=== PATIENT | male | born 1960 | race Caucasian/White ===

== ENCOUNTER 2019-09-22 10:08 | Inpatient (IN) ==
[2019-09-22] MEDS ORDERED: ONDANSETRON INJ 2 MG/ML 2 ML VIAL IV STA (10:49)
[2019-09-22] MEDS ORDERED: DiphenhydrAMINE HCL 50 MG/ML VIAL IV STA (10:49)
[2019-09-22] MEDS ORDERED: PANTOprazole 80 MG in DEXTROSE 5% 100 ML IV ONE (10:49)
--- NOTE | 2019-09-22 10:55 | Emergency Department Note ---
Impression & Plan Lower abdominal pain, SBO (small bowel obstruction), Inguinal hernia, Vomiting, Heme positive stool ED Provider Note NAME: SAMIR Parsons [id number] PICK AGE: 58 SEX: M : 1960 ARRIVES VIA: Walk-In INFORMANT: [Patient][nursing home staff] ED PROVIDER(S): [Kushal Steven MD] CHIEF COMPLAINT: Vomiting HISTORY OF PRESENT ILLNESS: The patient is a 58-year-old male presents to the ED with around 18 hours of symptoms. The patient states that yesterday, after dinner, he began having lower abdominal pain. He then started with vomiting and diarrhea. He has had coffee ground emesis. He states he has not noticed any blood in the stool. He has lower abdominal pain that is moderate in severity, constant and nonradiating. He was sent from [facility]. There has been no cough or cold or congestion. No fever. He does have known GI issues. The patient cannot recall ever having issues with GI bleeding before. He is lactose intolerant. REVIEW OF SYSTEMS: See HPI for pertinent positives and negatives. A total of ten systems were reviewed and were otherwise negative. PMHx/PSHx: See Below SOCIAL HISTORY: See Below. PHYSICAL EXAM: GENERAL: Patient is in no acute distress. Extremely thin and frail. HEENT: No acute trauma, normocephalic atraumatic, mucous membranes dry, no nasal congestion, no scleral icterus. NECK: No stridor, no adenopathy, no meningismus, trachea is midline. LUNGS: Clear to auscultation bilaterally, no wheeze, no rhonchi, breath sounds e qual. HEART: Without murmurs gallops or rubs, regular rate and rhythm. ABDOMEN: Firm and distended, moderately tender in the lower abdomen bilaterally, he does have a nontender right inguinal hernia, no peritonitis. EXTREMITIES: No cyanosis or edema, full range of motion of all the joints without pain or difficulty, no signs for acute trauma. NEUROLOGIC: Oriented x 3, no acute motor or sensory deficits, no focal weakness. SKIN: No rash, no jaundice, no diaphoresis. Pale. Rectal: Brown stool, heme positive. DIFFERENTIAL DIAGNOSIS: Diverticulosis, AVM, coagulopathy, colitis, inflammatory bowel disease, malignancy, Idalia-Mckeon tear, esophagitis, peptic ulcer disease, variceal bleed, gastritis, epistaxis, fissure, hemorrhoids, as well as other pathologies. EMERGENCY DEPARTMENT COURSE/PROCEDURES: ECG: Indication was abdominal pain. The ECG shows a normal sinus rhythm with a rate of 91. There is no ST elevation. There are some nonspecific ST changes. No PVCs. The QTc is 482. Continuous Cardiac Monitoring: An order was placed for continuous cardiac monitoring. The monitor shows a rate of 63 with normal sinus rhythm. MEDICAL DECISION MAKING: There is a mild leukocytosis, this could be consistent with infection. The patient is anemic but this appears baseline looking back at previous testing. The platelet count was slightly elevated. There was no coagulopathy. No sign ificant electrolyte abnormality or kidney failure. There were a few liver enzyme elevations. EKG shows a normal sinus rhythm, no acute ischemia. Cardiac enzyme testing x1 is not consistent with acute cardiac injury. No evidence for pancreatitis by our testing. Chest film did not show pneumonia or free air, dilated bowel loops were noted. Abdominal and pelvis CT shows a small bowel obstruction thought to be caused by the right inguinal hernia. The patient received IV saline for hydration. He was given IV Protonix and then placed on a Protonix drip. The Protonix was given because of the reported coffee-ground emesis. Patient received IV Zofran for nausea. He was given IV Benadryl for nausea. He had NG tube ordered to be placed to low intermittent suction. I spoke to the patient and to the guards. I did speak with case management. I talked to general surgery. The patient is being seen by surgery. He will need hospitalized. The patient does seem to be in improved condition, he is currently resting fairly comfortably. Past Med/Surg History Medical History Anemia (Resolved) B12 deficiency BPH (benign prostatic hyperplasia) Celiac disease Chronic deep vein thrombosis (DVT) Chronic deep vein thrombosis (DVT) of right lower extremity Coagulopathy GERD (gastroesophageal reflux disease) Hypothyroid (Chronic) Prolonged Q-T interval on ECG Protein malnutrition Vitamin K deficiency Surgical History H/O splenectomy (Resolved) Family History Other No pertinent family history Social History Smoking Status: Former smoker Second Hand Exposure: No; Hx Alcohol Use: No Hx Substance Use: No Preferred Language: Slovenian Communication Ability: Effective Ribbon Winder Required: No Beliefs That Will Affect Care: None Current Living Situation: Other Feels Safe at Home: Yes Allergies Allergies Allergy/AdvReac Type Severity Reaction Status Date / Time gluten Allergy Unknown GI SYMPTOMS Verified 09/22/19 11:41 Penicillins Allergy Unknown unknown Unverified 09/22/19 11:41 lactose AdvReac Gastrointestinal Unverified 09/22/19 11:41 Upset Home Meds Home Medications Medication Instructions Recorded Confirmed acetaminophen [Tylenol Extra 1,000 mg PO TID PRN 09/22/19 09/22/19 Strength] aspirin [Aspirin Childrens] 81 mg PO DAILY 09/22/19 09/22/19 bisacodyl 5 mg PO HS 09/22/19 09/22/19 calcium carbonate [Calcium 600] 600 mg PO BID 09/22/19 09/22/19 cholecalciferol (vitamin D3) 250 mcg PO DAILY 09/22/19 09/22/19 [Vitamin D3] cyanocobalamin (vitamin B-12) 1,000 mcg SUBCUT MONTHLY 09/22/19 09/22/19 ferrous sulfate 325 mg PO HS 09/22/19 09/22/19 folic acid 1 mg PO HS 09/22/19 09/22/19 food supplemt, lactose-reduced 1 ea PO TID 09/22/19 09/22/19 [Ensure] levothyroxine 25 mcg PO HS 09/22/19 09/22/19 [id number] [Creon] 1 cap PO TID 09/22/19 09/22/19 magnesium oxide 400 mg PO HS 09/22/19 09/22/19 mineral oil-hydrophil petrolat 1 applic TOPICAL BID PRN 09/22/19 09/22/19 [DermaPhor] mirtazapine 15 mg PO HS 09/22/19 09/22/19 pantoprazole 40 mg PO DAILY 09/22/19 09/22/19 potassium chloride 20 meq PO HS 09/22/19 09/22/19 tamsulosin 0.4 mg PO HS 09/22/19 09/22/19 Results & Data (ED) Vital Signs Vital Signs - 24 hr 09/22/19 10:27 09/22/19 11:02 09/22/19 11:11 Temperature 36.7 C Temperature Source Oral Pulse Rate 76 97 H 95 H Pulse Rate from SpO2 Sensor 97 H 96 H Respiratory Rate 16 17 19 Blood Pressure 82/62 L 100/71 Blood Pressure Mean 68 80 Pulse Oximetry 97 95 97 Oxygen Delivery Method Room Air Sepsis Recent Fever Within 48 Hours No Sepsis New/Unexplained Change in Mental Status N/A Sepsis Action Taken by Nursing No Action Required 09/22/19 11:30 09/22/19 11:31 09/22/19 12:00 Temperature Temperature Source Pulse Rate 88 93 H 80 Pulse Rate from SpO2 Sensor 90 96 H 80 Respiratory Rate 17 23 22 Blood Pressure 104/75 118/75 Blood Pressure Mean 85 89 Pulse Oximetry 96 96 98 Oxygen Delivery Method Sepsis Recent Fever Within 48 Hours Sepsis New/Unexplained Change in Mental Status Sepsis Action Taken by Nursing 09/22/19 12:01 09/22/19 12:30 09/22/19 12:31 Temperature Temperature Source Pulse Rate 90 114 H 104 H Pulse Rate from SpO2 Sensor 88 114 H 99 H Respiratory Rate 21 26 H 38 H Blood Pressure 111/83 Blood Pressure Mean 88 Pulse Oximetry 97 97 97 Oxygen Delivery Method Sepsis Recent Fever Within 48 Hours Sepsis New/Unexplained Change in Mental Status Sepsis Action Taken by Nursing 09/22/19 13:00 09/22/19 13:01 09/22/19 13:30 Temperature Temperature Source Pulse Rate 99 H 94 H 77 Pulse Rate from SpO2 Sensor 103 H 95 H 80 Respiratory Rate 16 15 13 Blood Pressure 113/71 110/75 Blood Pressure Mean 97 82 Pulse Oximetry 96 98 95 Oxygen Delivery Method Sepsis Recent Fever Within 48 Hours Sepsis New/Unexplained Change in Mental Status Sepsis Action Taken by Nursing 09/22/19 13:31 09/22/19 14:00 09/22/19 14:01 Temperature Temperature Source Pulse Rate 82 77 73 Pulse Rate from SpO2 Sensor 81 79 74 Respiratory Rate 16 15 13 Blood Pressure 108/77 Blood Pressure Mean 80 Pulse Oximetry 95 96 96 Oxygen Delivery Method Sepsis Recent Fever Within 48 Hours Sepsis New/Unexplained Change in Mental Status Sepsis Action Taken by Nursing 09/22/19 14:30 09/22/19 14:31 09/22/19 15:00 Temperature Temperature Source Pulse Rate 80 83 Pulse Rate from SpO2 Sensor 81 76 86 Respiratory Rate 22 16 18 Blood Pressure 122/82 106/79 Blood Pressure Mean 86 83 Pulse Oximetry 96 96 96 Oxygen Delivery Method Sepsis Recent Fever Within 48 Hours Sepsis New/Unexplained Change in Mental Status Sepsis Action Taken by Nursing 09/22/19 15:30 09/22/19 16:00 09/22/19 16:30 Temperature Temperature Source Pulse Rate 64 63 79 Pulse Rate from SpO2 Sensor 66 64 79 Respiratory Rate 18 18 18 Blood Pressure 96/70 L 95/64 L 91/58 L Blood Pressure Mean 76 82 63 Pulse Oximetry 97 96 95 Oxygen Delivery Method Sepsis Recent Fever Within 48 Hours Sepsis New/Unexplained Change in Mental Status Sepsis Action Taken by Nursing 09/22/19 17:00 09/22/19 17:30 Temperature Temperature Source Pulse Rate 83 69 Pulse Rate from SpO2 Sensor 84 69 Respiratory Rate 18 18 Blood Pressure 96/58 L 93/63 L Blood Pressure Mean 63 68 Pulse Oximetry 96 96 Oxygen Delivery Method Sepsis Recent Fever Within 48 Hours Sepsis New/Unexplained Change in Mental Status Sepsis Action Taken by [facility] Medications Current Medication List: was personally reviewed by me Laboratory Data Attestation: I reviewed the patient's lab results. Result diagrams: 09/22/19 10:56 09/22/19 10:56 Lab Results 09/22/19 09/22/19 09/22/19 Range/Units 10:56 10:56 10:56 WBC 11.85 H (4.8-10.8) K/uL RBC 3.28 L (4.7-6.1) M/uL Hgb 11.2 L (14.0-18.0) g/dL Hct 34.0 L (42-52) % MCV 103.7 H (80-100) fL MCH 34.1 H (25-34) pg MCHC 32.9 (32-36) g/dL RDW Std Deviation 58.9 H (36.4-46.3) fL RDW Coeff of Tevin 15.5 H (11.5-14.5) % Plt Count 580 H (130-400) K/uL MPV 11.3 H (7.4-10.4) fL Immature Gran % (Auto) 0.3 % Neut % (Auto) 86.6 % Lymph % (Auto) 8.9 % Nolan % (Auto) 4.1 % Eos % (Auto) 0.0 % Baso % (Auto) 0.1 % Neut # (Auto) 10.26 H (1.4-6.5) K/uL Lymph # (Auto) 1.06 L (1.2-3.4) K/uL Nolan # (Auto) 0.49 (0.11-0.59) K/uL Eos # (Auto) 0.00 (0-0.5) K/uL Baso # (Auto) 0.01 (0-0.2) K/uL Immature Gran # (Auto) 0.03 H (0.00-0.02) K/uL PT 11.4 (9.0-12.0) Seconds INR 1.1 (0.9-1.1) APTT 25.3 (21.0-31.0) Seconds PTT Ratio 0.9 Sodium (136-145) mmol/L Potassium (3.5-5.1) mmol/L Chloride (98-107) mmol/L Carbon Dioxide (21-32) mmol/L Anion Gap (3-11) BUN (7-18) mg/dl Creatinine (0.6-1.4) mg/dl Est Cr Clr Drug Dosing Est GFR ( Amer) Est GFR (Non-Af Amer) BUN/Creatinine Ratio (10-20) Glucose (70-99) mg/dl Calcium (8.5-10.1) mg/dl Total Bilirubin (0.2-1) mg/dl AST (15-37) U/L ALT (12-78) U/L Alkaline Phosphatase (45-117) U/L Troponin I (0-0.045) ng/ml Total Protein (6.4-8.2) gm/dl Albumin (3.4-5.0) gm/dl Globulin (2.5-4.0) gm/dl Albumin/Globulin Ratio (0.9-2) Lipase (73-393) U/L COVID-19 PCR (Negative) SARS-CoV-2 RNA (RT-PCR) Blood Type A Positive Antibody Screen NEGATIVE 09/22/19 09/22/19 09/22/19 Range/Units 10:56 14:23 Unknown WBC (4.8-10.8) K/uL RBC (4.7-6.1) M/uL Hgb (14.0-18.0) g/dL Hct (42-52) % MCV (80-100) fL MCH (25-34) pg MCHC (32-36) g/dL RDW Std Deviation (36.4-46.3) fL RDW Coeff of Tevin (11.5-14.5) % Plt Count (130-400) K/uL MPV (7.4-10.4) fL Immature Gran % (Auto) % Neut % (Auto) % Lymph % (Auto) % Nolan % (Auto) % Eos % (Auto) % Baso % (Auto) % Neut # (Auto) (1.4-6.5) K/uL Lymph # (Auto) (1.2-3.4) K/uL Nolan # (Auto) (0.11-0.59) K/uL Eos # (Auto) (0-0.5) K/uL Baso # (Auto) (0-0.2) K/uL Immature Gran # (Auto) (0.00-0.02) K/uL PT (9.0-12.0) Seconds INR (0.9-1.1) APTT (21.0-31.0) Seconds PTT Ratio Sodium 141 (136-145) mmol/L Potassium 3.8 (3.5-5.1) mmol/L Chloride 111 H (98-107) mmol/L Carbon Dioxide 24 (21-32) mmol/L Anion Gap 6.0 (3-11) BUN 15 (7-18) mg/dl Creatinine 0.80 (0.6-1.4) mg/dl Est Cr Clr Drug Dosing Not Reportable Est GFR ( Amer) 112.5 Est GFR (Non-Af Amer) 97.1 BUN/Creatinine Ratio 18.8 (10-20) Glucose 115 H (70-99) mg/dl Calcium 8.0 L (8.5-10.1) mg/dl Total Bilirubin 0.3 (0.2-1) mg/dl AST 41 H (15-37) U/L ALT 99 H (12-78) U/L Alkaline Phosphatase 540 H (45-117) U/L Troponin I < 0.015 (0-0.045) ng/ml Total Protein 7.5 (6.4-8.2) gm/dl Albumin 2.3 L (3.4-5.0) gm/dl Globulin 5.2 H (2.5-4.0) gm/dl Albumin/Globulin Ratio 0.4 L (0.9-2) Lipase 86 (73-393) U/L COVID-19 PCR NEGATIVE (Negative) SARS-CoV-2 RNA (RT-PCR) Cancelled Blood Type Antibody Screen Administered Medications Ioversol (Optiray 320 100ml) 94 ml IV ONCE PRN PRN Reason: Interaction Checking Stop: 09/26/19 12:49 Last Admin: 09/22/19 12:51 Dose: 94 ml Documented by: [id number] Discontinued Medications Diphenhydramine HCl (Benadryl) 12.5 mg IV NOW STA Stop: 09/22/19 10:50 Last Admin: 09/22/19 11:24 Dose: 12.5 mg Documented by: [id number] Sodium Chloride (Nss 1000ml) 1,000 mls @ 999 mls/hr IV .Q1H1M TIMOTEO Stop: 09/22/19 12:00 Last Infusion: 09/22/19 12:23 Dose: 0 mls/hr Documented by: [id number] Admin: 09/22/19 11:25 Dose: 999 mls/hr Documented by: [id number] Pantoprazole Sodium 80 mg/ (Dextrose) 100 mls @ 400 mls/hr IV NOW ONE Stop: 09/22/19 11:03 Last Infusion: 09/22/19 11:55 Dose: 0 mls/hr Documented by: [id number] Admin: 09/22/19 11:24 Dose: 400 mls/hr Documented by: [id number] Pantoprazole Sodium 40 mg/ (Dextrose) 100 mls @ 20 mls/hr IV Q5H TIMOTEO Stop: 09/22/19 15:59 Last Infusion: 09/22/19 16:56 Dose: 0 mg/hr, 0 mls/hr Documented by: [id number] Admin: 09/22/19 11:25 Dose: 8 mg/hr, 20 mls/hr Documented by: [id number] Ondansetron HCl (Zofran) 4 mg IV ONE STA Stop: 09/22/19 10:50 Last Admin: 09/22/19 11:32 Dose: 4 mg Documented by: [id number] Imaging Data Radiologist's Impression: SINGLE VIEW CHEST CLINICAL HISTORY: Epigastric abdominal pain. FINDINGS: An AP, portable, upright chest radiograph is compared to study dated 11/18/2017 and correlated with chest CT dated 08/05/2017. The examination is degraded by portable technique and patient rotation. The cardiomediastinal silhouette is unremarkable noting atherosclerotic calcification of the thoracic aorta. Chronic interstitial thickening is similar to previous. There is bibasila r scarring/atelectasis. No airspace consolidation or large pleural effusion is identified. No pneumothorax is seen. The skeletal structures are osteopenic. There are healed left-sided rib fractures. Distended bowel loops are noted in the upper abdomen. IMPRESSION: No acute cardiopulmonary abnormality. CT SCAN OF THE ABDOMEN AND PELVIS WITH IV CONTRAST CLINICAL HISTORY: Lower abdominal pain. Vomiting. COMPARISON STUDY: Abdominal CT dated 08/27/2019. TECHNIQUE: Following the IV administration of 94 cc of Optiray 320, CT scan of the abdomen and pelvis is performed from the lung bases to the proximal femora. Images are reviewed in the axial, sagittal, and coronal planes. IV contrast was administered without complication. The examination is suboptimal without oral contrast. The examination is also difficult to interpret due to a paucity of in traperitoneal fat. A dose lowering technique was utilized adhering to the principles of ALARA. CT DOSE: 264.64 mGy.cm FINDINGS: Lung bases: The heart is top normal in size and without pericardial effusion. The lung bases are clear noting bibasilar scarring/atelectasis. There is a moderate hiatal hernia. Circumferential wall thickening is suggested in the distal esophagus. Liver: The contrast-enhanced liver is normal in size, contour, and attenuation. There is no intrahepatic biliary ductal dilatation. The hepatic veins and portal veins are patent. Gallbladder: Unremarkable. Spleen: The spleen is not identified and presumed surgically absent. Pancreas: Unremarkable. Adrenal glands: Unremarkable. Kidneys: The contrast enhanced kidneys are normal in size and without hydronephrosis. The kidneys enhance symmetrically. Abdominal vasculature: The abdominal aorta is normal in course and caliber. Bowel: The small bowel is distended and fluid-filled measuring up to 4.7 cm in transverse diameter. The transition point is likely incarcerated loop of small bowel within a right inguinal hernia. The distal small bowel and colon are decompressed. No pneumatosis intestinalis or portal venous gas is identified. The rectum is distended with liquid stool. The rectal wall appears mildly thi ckened and hyperemic. Question polyposis of the right colon produces (axial images #184 and #209). The appendix is nonvisualized. Peritoneum: There is trace abdominal ascites. No intraperitoneal free air is seen. Lymphadenopathy: There are numerous mildly enlarged mesenteric lymph nodes which measure up to 11 mm in short axis. Pelvic viscera: The prostate gland appears mildly enlarged and heterogeneous. The bladder is partially decompressed and grossly unremarkable. Skeletal structures: The skeletal structures are osteopenic. No lytic or blastic lesions are seen. There are healed left-sided rib fractures. There are minimal compression deformities of L4 and L5. Soft tissues: The patient is cachectic. IMPRESSION: 1. Findings are consistent with a high-grade small bowel obstruction, likely related to an incarcerated loop of small bowel within a right inguinal hernia. 2. There is trace abdominopelvic ascites. No intraperitoneal free air is seen. 3. Findings suggest a nonspecific proctitis. Clinical correlation will be required. 4. There is a small to moderate hiatal hernia with wall thickening noted in the distal esophagus. Correlate for evidence of esophagitis. This can be further assessed with endoscopy if clinically warranted. 5. There are numerous enlarged mesenteric lymph nodes which may be on a reactive basis. Clinical correlation will be required. 6. Cachexia. 7. Question polyposis of the right colon. This is not well evaluated by CT, and follow-up with a nonemergent colonoscopy is recommended for further assessment. 8. Additional findings as above. Blood Pressure Blood Pressure Findings: Low blood pressure Blood Pressure Disposition: further management by hospitalist Discharge Plan Visit Data Chief Complaint: Vomiting Stated Complaint: VOMITING COFFEE GROUND EMESIS, ABD PAIN ED Provider: Kushal Steven Discharge Problem: Lower abdominal pain, SBO (small bowel obstruction), Inguinal hernia, Vomiting, Heme positive stool Patient Disposition: Being Evaluated by Surgeon Condition: Fair Forms Stand Alone Forms: [employer] Prescriptions Prescriptions: No Action DermaPhor Ointment 1 applic TOPICAL BID PRN (Reason: Itching) RF: 0 acetaminophen [Tylenol Extra Strength] 500 mg Tablet 1,000 mg PO TID PRN (Reason: Pain) RF: 0 levothyroxine 25 mcg Tablet 25 mcg PO HS RF: 0 calcium carbonate [Calcium 600] 600 mg calcium (1,500 mg) Tablet 600 mg PO BID RF: 0 tamsulosin 0.4 mg Capsule 0.4 mg PO HS RF: 0 pantoprazole 40 mg Tablet,Delayed Release (Dr/Ec) 40 mg PO DAILY RF: 0 cyanocobalamin (vitamin B-12) 1,000 mcg/mL Solution 1,000 mcg SUBCUT MONTHLY RF: 0 ferrous sulfate 325 mg (65 mg iron) Tablet 325 mg PO HS RF: 0 aspirin [Aspirin Childrens] 81 mg Tablet,Chewable 81 mg PO DAILY RF: 0 folic acid 1 mg Tablet 1 mg PO HS RF: 0 bisacodyl 5 mg Tablet,Delayed Release (Dr/Ec) 5 mg PO HS RF: 0 mirtazapine 15 mg Tablet,Disintegrating 15 mg PO HS RF: 0 Ensure Liquid 1 ea PO TID RF: 0 cholecalciferol (vitamin D3) [Vitamin D3] 125 mcg (5,000 unit) Tablet 250 mcg PO DAILY RF: 0 Creon 24,000-76,000 -120,000 unit Capsule,Delayed Release(Dr/Ec) 1 cap PO TID RF: 0 potassium chloride 20 mEq Tablet Extended Release 20 meq PO HS RF: 0 magnesium oxide 400 mg magnesium Tablet 400 mg PO HS RF: 0 Referrals Referrals: Mike CHEUNG [Primary Care Provider] - Discharge Problem: Inguinal hernia Qualifiers: Obstruction and gangrene presence: with obstruction but without gangrene Laterality: unilateral Recurrence: not specified as recurrent Qualified Code(s): K40.30 - Unilateral inguinal hernia, with obstruction, without gangrene, not specified as recurrent Vomiting Qualifiers: Vomiting type: unspecified Vomiting Intractability: non-intractable Nausea presence: with nausea Qualified Code(s): R11.2 - Nausea with vomiting, unspecified
[2019-09-22] MEDS ORDERED: PANTOprazole 40 MG in DEXTROSE 5% 100 ML IV SCH (11:00)
[2019-09-22] MEDS ORDERED: SODIUM CHLORIDE 0.9% 1000ML 1,000 ML IV SCH (11:00)
[2019-09-22 11:13] LABS: Basophils # (auto) 0.01 K/uL (0-0.2); Basophils % (auto) 0.1 %; Hemoglobin 11.2 g/dL (14.0-18.0); Immature Granulocytes # (auto) 0.03 K/uL (0.00-0.02); Immature Granulocytes % (auto) 0.3 %; Lymphocytes # (auto) 1.06 K/uL (1.2-3.4); Lymphocytes % (auto) 8.9 %; Mean Corpuscular Hemoglobin 34.1 pg (25-34); Mean Corpuscular Hgb Conc 32.9 g/dL (32-36); Mean Corpuscular Volume 103.7 fL (80-100); Mean Platelet Volume 11.3 fL (7.4-10.4); Monocytes # (auto) 0.49 K/uL (0.11-0.59); Monocytes % (auto) 4.1 %; Neutrophils # (auto) 10.26 K/uL (1.4-6.5); Neutrophils % (auto) 86.6 %; Platelet Count 580 K/uL (130-400); RDW Coefficient of Variation 15.5 % (11.5-14.5); RDW Standard Deviation 58.9 fL (36.4-46.3); Red Blood Count 3.28 M/uL (4.7-6.1); White Blood Count 11.85 K/uL (4.8-10.8)
[2019-09-22 11:25] LABS: INR 1.1 (0.9-1.1); Partial Thromboplastin Ratio 0.9; Partial Thromboplastin Time 25.3 Seconds (21.0-31.0); Prothrombin Time 11.4 Seconds (9.0-12.0)
[2019-09-22 11:28] LABS: Alanine Aminotransferase 99 U/L (12-78); Albumin Level 2.3 gm/dl (3.4-5.0); Aspartate Aminotransferase 41 U/L (15-37); BUN Creatinine Ratio 18.8 (10-20); Blood Urea Nitrogen 15 mg/dl (7-18); Carbon Dioxide 24 mmol/L (21-32); Chloride 111 mmol/L (98-107); Est GFR (African American) 112.5; Est GFR (Non-African American) 97.1; Glucose 115 mg/dl (70-99); Lipase 86 U/L (73-393); Potassium 3.8 mmol/L (3.5-5.1); Sodium 141 mmol/L (136-145)
[2019-09-22 11:33] LABS: Albumin Globulin Ratio 0.4 (0.9-2); Alkaline Phosphatase 540 U/L (45-117); Bilirubin,Total 0.3 mg/dl (0.2-1); Globulin 5.2 gm/dl (2.5-4.0); Total Protein 7.5 gm/dl (6.4-8.2); Troponin I < 0.015 ng/ml (0-0.045)
--- NOTE | 2019-09-22 12:06 | XRay Report ---
SINGLE VIEW CHEST CLINICAL HISTORY: Epigastric abdominal pain. FINDINGS: An AP, portable, upright chest radiograph is compared to study dated 11/18/2017 and correlat ed with chest CT dated 08/05/2017. The examination is degraded by portable technique and patient rotati on. The cardiomediastinal silhouette is unremarkable noting atherosclerotic calcification of the th oracic aorta. Chronic interstitial thickening is similar to previous. There is bibasilar scarring/ate lectasis. No airspace consolidation or large pleural effusion is identified. No pneumothorax is seen. The skeletal structures are osteopenic. There are healed left-sided rib fractures. Distended bowel l oops are noted in the upper abdomen. IMPRESSION: No acute cardiopulmonary abnormality. ACT 112: Negative or not required by law. Electronically signed by: Kushal Cevallos M.D. 09/22/2019 12:04 PM
[2019-09-22] MEDS ORDERED: IOVERSOL 100ml IV PRN (12:50)
--- NOTE | 2019-09-22 13:38 | CT Scan Report ---
CT SCAN OF THE ABDOMEN AND PELVIS WITH IV CONTRAST CLINICAL HISTORY: Lower abdominal pain. Vomiting. COMPARISON STUDY: Abdominal CT dated 08/27/2019. TECHNIQUE: Following the IV administration of 94 cc of Optiray 320, CT scan of the abdomen and pelvi s is performed from the lung bases to the proximal femora. Images are reviewed in the axial, sagittal , and coronal planes. IV contrast was administered without complication. The examination is suboptima l without oral contrast. The examination is also difficult to interpret due to a paucity of intraperi toneal fat. A dose lowering technique was utilized adhering to the principles of ALARA. CT DOSE: 264.64 mGy.cm FINDINGS: Lung bases: The heart is top normal in size and without pericardial effusion. The lung bases are anabell r noting bibasilar scarring/atelectasis. There is a moderate hiatal hernia. Circumferential wall thic kening is suggested in the distal esophagus. Liver: The contrast-enhanced liver is normal in size, contour, and attenuation. There is no intrahepa tic biliary ductal dilatation. The hepatic veins and portal veins are patent. Gallbladder: Unremarkable. Spleen: The spleen is not identified and presumed surgically absent. Pancreas: Unremarkable. Adrenal glands: Unremarkable. Kidneys: The contrast enhanced kidneys are normal in size and without hydronephrosis. The kidneys enh ance symmetrically. Abdominal vasculature: The abdominal aorta is normal in course and caliber. Bowel: The small bowel is distended and fluid-filled measuring up to 4.7 cm in transverse diameter. T he transition point is likely incarcerated loop of small bowel within a right inguinal hernia. The di stal small bowel and colon are decompressed. No pneumatosis intestinalis or portal venous gas is iden tified. The rectum is distended with liquid stool. The rectal wall appears mildly thickened and hyper emic. Question polyposis of the right colon produces (axial images #184 and #209). The appendix is n onvisualized. Peritoneum: There is trace abdominal ascites. No intraperitoneal free air is seen. Lymphadenopathy: There are numerous mildly enlarged mesenteric lymph nodes which measure up to 11 mm in short axis. Pelvic viscera: The prostate gland appears mildly enlarged and heterogeneous. The bladder is partiall y decompressed and grossly unremarkable. Skeletal structures: The skeletal structures are osteopenic. No lytic or blastic lesions are seen. Th ere are healed left-sided rib fractures. There are minimal compression deformities of L4 and L5. Soft tissues: The patient is cachectic. IMPRESSION: 1. Findings are consistent with a high-grade small bowel obstruction, likely related to an incarcerat ed loop of small bowel within a right inguinal hernia. 2. There is trace abdominopelvic ascites. No intraperitoneal free air is seen. 3. Findings suggest a nonspecific proctitis. Clinical correlation will be required. 4. There is a small to moderate hiatal hernia with wall thickening noted in the distal esophagus. Cor relate for evidence of esophagitis. This can be further assessed with endoscopy if clinically warrant ed. 5. There are numerous enlarged mesenteric lymph nodes which may be on a reactive basis. Clinical jadiel elation will be required. 6. Cachexia. 7. Question polyposis of the right colon. This is not well evaluated by CT, and follow-up with a none mergent colonoscopy is recommended for further assessment. 8. Additional findings as above. ACT 112: Negative or not required by law. Electronically signed by: Kushal Cevallos M.D. 09/22/2019 1:36 PM
--- NOTE | 2019-09-22 15:02 | History & Physical Report ---
Date of Service September 22, 2019 Assessment & Plan (1) Incarcerated right inguinal hernia: Clearly this is his acute problem. We will need to reduce the small bowel obstruction and repair the hernia. We will attempt to do this laparoscopically so that I can evaluate the bowel to make sure there is no injury to it. This will require mesh. I discussed the options and risks with him which would include bleeding, infection, infection of mesh requiring explant, chronic pain, injury to other organs such as bowel bladder ureter etc., DVT, PE, OH, CVA etc. Following our discussion I answered his questions. We will proceed JAYLYN with laparoscopic reduction of small bowel obstruction and repair of incarcerated right inguinal hernia with mesh. I recommend he follow-up with his primary care provider regarding the weight loss and abnormality seen in his right colon and esophagus on CT scan. Patient is agreeable with the plan and signed the consent. (2) Small bowel obstruction: History of Present Illness Primary Care Provider: SKYE Connerner 58-year-old white male inmate from a local correctional facility. Began this morning with some abdominal pain but primarily coffee-ground emesis. He was brought to the emergency room and work-up has revealed an incarcerated right inguinal hernia with a small bowel obstruction associated with it. Currently the patient says he only has pain when he tries to move or stand up. He has not had emesis since this morning. He has lost considerable weight over the last year. He used to weigh around 119 pounds and he now weighs around 90. He does not have a good explanation for this. Allergies Allergy/AdvReac Type Severity Reaction Status Date / Time gluten Allergy Unknown GI SYMPTOMS Verified 09/22/19 11:41 Penicillins Allergy Unknown unknown Unverified 09/22/19 11:41 lactose AdvReac Gastrointestinal Unverified 09/22/19 11:41 Upset Home Medications Home Medications Medication Instructions Recorded Confirmed Type acetaminophen [Tylenol Extra 1,000 mg PO TID PRN 09/22/19 09/22/19 History Strength] aspirin [Aspirin Childrens] 81 mg PO DAILY 09/22/19 09/22/19 History bisacodyl 5 mg PO HS 09/22/19 09/22/19 History calcium carbonate [Calcium 600] 600 mg PO BID 09/22/19 09/22/19 History cholecalciferol (vitamin D3) 250 mcg PO DAILY 09/22/19 09/22/19 History [Vitamin D3] cyanocobalamin (vitamin B-12) 1,000 mcg SUBCUT MONTHLY 09/22/19 09/22/19 History ferrous sulfate 325 mg PO HS 09/22/19 09/22/19 History folic acid 1 mg PO HS 09/22/19 09/22/19 History food supplemt, lactose-reduced 1 ea PO TID 09/22/19 09/22/19 History [Ensure] levothyroxine 25 mcg PO HS 09/22/19 09/22/19 History [id number] [Creon] 1 cap PO TID 09/22/19 09/22/19 History magnesium oxide 400 mg PO HS 09/22/19 09/22/19 History mineral oil-hydrophil petrolat 1 applic TOPICAL BID PRN 09/22/19 09/22/19 History [DermaPhor] mirtazapine 15 mg PO HS 09/22/19 09/22/19 History pantoprazole 40 mg PO DAILY 09/22/19 09/22/19 History potassium chloride 20 meq PO HS 09/22/19 09/22/19 History tamsulosin 0.4 mg PO HS 09/22/19 09/22/19 History Past Med/Surg History Medical History (Updated 09/22/19 @ 15:02 by Marcial Bryant DO) Anemia (Resolved) B12 deficiency BPH (benign prostatic hyperplasia) Celiac disease Chronic deep vein thrombosis (DVT) Chronic deep vein thrombosis (DVT) of right lower extremity Coagulopathy GERD (gastroesophageal reflux disease) Hypothyroid (Chronic) Prolonged Q-T interval on ECG Protein malnutrition Vitamin K deficiency Surgical History H/O splenectomy (Resolved) Social History Smoking Status: Former smoker Second Hand Exposure: No; Hx Alcohol Use: No Hx Substance Use: No Preferred Language: [place] Communication Ability: Effective Rn Intern Required: No Beliefs That Will Affect Care: None Current Living Situation: Other Feels Safe at Home: Yes Review of Systems All systems reviewed & are unremarkable except as noted in HPI & below Physical Exam Physical Exam: Patient is cachectic. He appears comfortable and is currently in no acute distress. Abdomen is soft. It is distended. There is an obvious incarcerated right inguinal hernia. It is tender and nonreducible. Eyes: PERRL, conjunctivae normal, anicteric sclerae EOM intact bilaterally ENMT: external ear and nose normal, oropharynx normal Ears: no hearing impairment Neck: trachea midline, no thyromegaly Respiratory: normal respiratory effort; no respiratory distress and does not use accessory muscles Cardiovascular: Rate/Rhythm: regular rate and regular rhythm Skin: no rashes, warm and dry Psychiatric: Orientation: alert, oriented x 3 and cooperative Results & Data Vital Signs (Past 12 Hours) Vital Signs Temp Pulse Resp BP Pulse Ox 09/22/19 14:31 83 16 96 09/22/19 14:30 80 22 122/82 96 09/22/19 14:01 73 13 96 09/22/19 14:00 77 15 108/77 96 09/22/19 13:31 82 16 95 09/22/19 13:30 77 13 110/75 95 09/22/19 13:01 94 H 15 98 09/22/19 13:00 99 H 16 113/71 96 09/22/19 12:31 104 H 38 H 97 09/22/19 12:30 114 H 26 H 111/83 97 09/22/19 12:01 90 21 97 09/22/19 12:00 80 22 118/75 98 09/22/19 11:31 93 H 23 96 09/22/19 11:30 88 17 104/75 96 09/22/19 11:11 95 H 19 97 09/22/19 11:02 97 H 17 100/71 95 09/22/19 10:27 36.7 C 76 16 82/62 L 97
--- NOTE | 2019-09-22 16:08 | Anesthesiology Consultation ---
Date of Service September 22, 2019 Assessment & Plan (1) Encounter for pre-operative examination: Chart Review Chart Review: Acceptable Risk for Surgery and Patient NOT seen in Pre Admission Testing Consults Requested none History Surgery Operation Date: 09/22/19 18:30 Proposed Procedures p Laparoscopic Inguinal Hernia Repair(Right) - Marcial Bryant DO Height/Weight Height: 5 ft 8 in Weight: 54.431 kg Allergies Allergy/AdvReac Type Severity Reaction Status Date / Time gluten Allergy Unknown GI SYMPTOMS Verified 09/22/19 11:41 Penicillins Allergy Unknown unknown Unverified 09/22/19 11:41 lactose AdvReac Gastrointestinal Unverified 09/22/19 11:41 Upset Medications Home Medications Medication Instructions Recorded Confirmed Last Taken acetaminophen [Tylenol Extra 1,000 mg PO TID PRN 09/22/19 09/22/19 09/21/19 Strength] aspirin [Aspirin Childrens] 81 mg PO DAILY 09/22/19 09/22/19 09/21/19 bisacodyl 5 mg PO HS 09/22/19 09/22/19 Unknown calcium carbonate [Calcium 600] 600 mg PO BID 09/22/19 09/22/19 09/21/19 cholecalciferol (vitamin D3) 250 mcg PO DAILY 09/22/19 09/22/19 09/21/19 [Vitamin D3] cyanocobalamin (vitamin B-12) 1,000 mcg SUBCUT MONTHLY 09/22/19 09/22/19 09/11/19 ferrous sulfate 325 mg PO HS 09/22/19 09/22/19 09/21/19 folic acid 1 mg PO HS 09/22/19 09/22/19 09/21/19 food supplemt, lactose-reduced 1 ea PO TID 09/22/19 09/22/19 09/21/19 [Ensure] levothyroxine 25 mcg PO HS 09/22/19 09/22/19 09/21/19 [id number] [Creon] 1 cap PO TID 09/22/19 09/22/19 09/21/19 magnesium oxide 400 mg PO HS 09/22/19 09/22/19 09/21/19 mineral oil-hydrophil petrolat 1 applic TOPICAL BID PRN 09/22/19 09/22/19 Unknown [DermaPhor] mirtazapine 15 mg PO HS 09/22/19 09/22/19 09/21/19 pantoprazole 40 mg PO DAILY 09/22/19 09/22/19 09/11/19 potassium chloride 20 meq PO HS 09/22/19 09/22/19 09/21/19 tamsulosin 0.4 mg PO HS 09/22/19 09/22/19 09/21/19 Active Medications Generic Name Dose Route Start Last Admin Trade Name Freq PRN Reason Stop Dose Admin Ioversol 94 ml 09/22/19 12:50 09/22/19 12:51 Optiray 320 100ml IV 09/26/19 12:49 94 ml ONCE PRN Administration Interaction Checking NPO Date Last Intake of Fluids: 09/22/19 Time Last Intake of Fluids: 05:00 Date Last Intake of Solids: 09/21/19 Time Last Intake of Solids: 17:00 Past Medical History Medical History Anemia (Resolved) B12 deficiency BPH (benign prostatic hyperplasia) Celiac disease Chronic deep vein thrombosis (DVT) Chronic deep vein thrombosis (DVT) of right lower extremity Coagulopathy GERD (gastroesophageal reflux disease) Hypothyroid (Chronic) Prolonged Q-T interval on ECG Protein malnutrition Vitamin K deficiency Past Family History Family History Other No pertinent family history Past Surgical History Surgical History H/O splenectomy (Resolved) Social History Smoking Status: Former smoker Hx Alcohol Use: No Hx Substance Use: No Physical Exam Vital Signs Last Vital Signs Temp 36.7 C 09/22/19 10:27 Pulse 82 09/22/19 19:32 Resp 19 09/22/19 19:32 BP 98/61 L 09/22/19 19:32 Pulse Ox 98 09/22/19 19:32 Testing Laboratory Results 09/22/19 10:56 09/22/19 10:56 PT 11.4 Seconds (9.0-12.0) 09/22/19 10:56 INR 1.1 (0.9-1.1) 09/22/19 10:56 APTT 25.3 Seconds (21.0-31.0) 09/22/19 10:56 Blood Type A Positive 09/22/19 10:56 Antibody Screen NEGATIVE 09/22/19 10:56 covid negative Electrocardiogram Date: 09/22/19 Findings: + NSR @ and + T wave inversion prolonged qt Chest X-Ray Date: 09/22/19 Findings: + NAD
[2019-09-22] MEDS ORDERED: ePHEDrine sulfate 50 MG/ML AMP IV PRN (20:04)
[2019-09-22] MEDS ORDERED: ATROPINE SULFATE 0.1 MG/ML 10ML SYR IV PRN (20:04)
[2019-09-22] MEDS ORDERED: PROMETHAZINE HCL 6.25 MG in SODIUM CHLORIDE 0.9% 50 ML IV PRN (20:04)
[2019-09-22] MEDS ORDERED: ONDANSETRON INJ 2 MG/ML 2 ML VIAL IV PRN ×2 (20:04→23:47)
[2019-09-22] MEDS ORDERED: fentaNYL citrate 100 MCG/2 ML VIAL IV PRN (20:04)
[2019-09-22] MEDS ORDERED: fentaNYL citrate 100 MCG/2 ML VIAL ONE (20:16)
[2019-09-22] MEDS ORDERED: BUPIVACAINE/EPINEPHRINE 0.25% 1:200,000 30 ML VIAL ONE (20:28)
[2019-09-22] MEDS ORDERED: SUCCINYLCHOLINE 100MG/5ML SYR IV ONE (21:04)
[2019-09-22] MEDS ORDERED: LIDOCAINE HCL 2% 2 ML VIAL/AMP(20MG/ML) INFIL ONE (21:04)
[2019-09-22] MEDS ORDERED: GLYCOPYRROLATE 0.2 MG/ML VIAL ONE (21:05)
[2019-09-22] MEDS ORDERED: PROPOFOL IV EMULSION 10 MG/ML 20 ML VIAL IV ONE (21:05)
[2019-09-22] MEDS ORDERED: NEOSTIGMINE METHYLSULFATE 5 MG/5 ML SYR ONE (21:05)
[2019-09-22] MEDS ORDERED: ROCURONIUM BROMIDE 10 MG/ML 5 ML VIAL IV ONE (21:05)
[2019-09-22] MEDS ORDERED: ONDANSETRON INJ 2 MG/ML 2 ML VIAL ONE (21:05)
[2019-09-22] MEDS ORDERED: SUGAMMADEX SODIUM 200 MG/2 ML VIAL IV ONE (21:08)
--- NOTE | 2019-09-22 21:19 | Operative Report ---
[facility] Post Operative Report Pre & Post Diagnosis Operation Date: 09/22/19 18:30 Pre-Op Diagnosis: Incarcerated right inguinal hernia, small bowel obstruction Post-Op Diagnosis: Incarcerated right inguinal hernia, small bowel obstruction I identified the patient and participated in the time-out.: Yes Procedure Operation Date: 09/22/19 18:30 Actual Procedures p reduction of small bowel obstruction, laparoscopic Inguinal Hernia Repair with Mesh(Right) - Marcial Bryant DO Surgeon Marcial Bryant DO Stage Settings Painter vinod Delacruz Estimated Blood Loss 5 Findings Consistent with Post-Op Diagnosis Specimens none Description of Procedure After informed consent was obtained the patient was taken to the operating room and placed in supine position. After successful intubation a Ho catheter was placed sterilely and the abdomen was sterilely prepped and draped in usual fashion. Gentle pressure in the right inguinal canal after general anesthetic had been induced allowed the incarceration to reduce. Next, a periumbilical incision was made with an 11 blade scalpel. This was carried down through the soft tissue using cautery. The anterior rectus fascia was opened using electrocautery and two #0 Vicryl stay sutures were placed. Peritoneum was elevated with hemostats and incised under direct vision using a Metzenbaum scissor. A finger sweep was performed. A 12 mm Mullen trocar was placed and the abdomen was insufflated to 18 mmHg. The laparoscope was inserted and the abdomen examined 360 degrees. There was a moderate sized hiatal hernia present. There was no gastric volvulus or obstruction. Other than a paucity of intra- abdominal fat no other abnormalities were seen. There was a large right inguinal hernia that was subsequently reduced manually. We did run the small bowel and there was no evidence of any bowel ischemia or damage. There is a small amount of free fluid in the pelvis we suctioned this out. It was serous fluid. I used a harmonic scalpel to take down the hernia sac incarcerated within the canal. Once I had the hernia sac reduced we placed a keyholed piece of surgery mesh into the abdomen through the camera port site. I unrolled it such that the keyhole allowed the cord and cord structures to slide up through it. I was then able to tack the mesh into place staying above the iliopubic tract by palpating the tacker through the abdominal wall before firing it. I placed several tacks anteriorly as well as laterally and 2 tacks into Benitez's ligament. The mesh laid nice and flat and tension-free. The anti-adhesive barrier was facing the bowel. There is no evidence of a left inguinal hernia. There was adequate hemostasis. The trochars were all removed and the abdomen desufflated. The fascia of the camera port was closed using 0 Vicryl in a [id number] fashion. The wounds were all irrigated and closed using 4-0 Monocryl. Marcaine was injected around them for postoperative analgesia and skin glue used as a dressing. The patient was awakened extubated and transferred recovery in stable condition. my physician sales operations assistant was present for the entire case. He helped prep the patient. He helped run the camera throughout my dissection as well as with wound closure and dressing placement. I attest to the content of the Intraoperative Record and any orders documented therein. Any exceptions are noted below.
--- NOTE | 2019-09-22 23:22 | Anesthesiology Progress Note ---
Date of Service September 22, 2019 Anesthesia Post Procedure Vital Signs Vital Signs: Temp Pulse Pulse Resp BP BP Pulse Ox 09/22/19 22:50 37.1 C 55 L 16 77/47 L 99 09/22/19 22:35 36.5 C 52 L 18 68/39 L 99 09/22/19 22:30 51 L 18 69/41 L 09/22/19 22:28 36.5 C 50 L 18 70/43 L 99 09/22/19 22:20 62 18 80/45 L 99 09/22/19 22:19 56 L 18 80/46 L 100 09/22/19 22:10 57 L 18 74/45 L 99 09/22/19 22:00 72 18 70/43 L 99 09/22/19 21:50 51 L 18 66/41 L 96 09/22/19 21:41 49 L 18 67/38 L 100 09/22/19 21:32 36.7 C 77 20 84/47 L 100 09/22/19 21:30 66 18 91/46 L 100 09/22/19 19:32 82 19 98/61 L 98 09/22/19 18:59 77 18 106/67 09/22/19 18:30 69 18 94/64 L 95 09/22/19 18:00 67 18 98/63 L 96 09/22/19 17:30 69 18 93/63 L 96 09/22/19 17:00 83 18 96/58 L 96 09/22/19 16:30 79 18 91/58 L 95 09/22/19 16:00 63 18 95/64 L 96 09/22/19 15:30 64 18 96/70 L 97 09/22/19 15:00 18 106/79 96 09/22/19 14:31 83 16 96 09/22/19 14:30 80 22 122/82 96 09/22/19 14:01 73 13 96 09/22/19 14:00 77 15 108/77 96 09/22/19 13:31 82 16 95 09/22/19 13:30 77 13 110/75 95 09/22/19 13:01 94 H 15 98 09/22/19 13:00 99 H 16 113/71 96 09/22/19 12:31 104 H 38 H 97 09/22/19 12:30 114 H 26 H 111/83 97 09/22/19 12:01 90 21 97 09/22/19 12:00 80 22 118/75 98 09/22/19 11:31 93 H 23 96 09/22/19 11:30 88 17 104/75 96 09/22/19 11:11 95 H 19 97 09/22/19 11:02 97 H 17 100/71 95 09/22/19 10:27 36.7 C 76 16 82/62 L 97 Transfer of Care Handoff Completed per policy Notes Mental Status: alert / awake / arousable Patient Amnestic to Procedure: Yes Nausea / Vomiting: adequately controlled Pain: adequately controlled Airway Patency, RR, SpO2: stable & adequate BP & HR: see Notes below Hydration State: stable & adequate Anesthetic Complications: no major complications apparent Notes: Patient had baseline BP 90s/50s preop. In PACU, BPs holding 70s/40s, patient awake and asymptomatic. Fluid challenge did not significantly improve BP. I did perform a focused bedside echocardiogram which showed global hyperkinesis consistent with hypovolemia. Additional fluids were given for this which did improve his BP to within 10-15% of baseline. Given his baseline low BP and hydration status, I recommended to the surgery team that he be monitored overnight on PCU.
[2019-09-22] MEDS ORDERED: MoRPHine SULFATE 2 MG/ML CARP IV PRN (23:47)
[2019-09-22] MEDS ORDERED: MINERAL OIL HYDROPHIL PETROLAT TOP PRN (23:47)
[2019-09-23] MEDS: ACETAMINOPHEN 1,000 MG/100 ML VIAL IV SCH ×2 (00:17→08:36)
[2019-09-23] MEDS: LACTATED RINGER'S 1,000 ML IV SCH ×2 (00:46→12:03)
[2019-09-23] MEDS ORDERED: LEVOTHYROXINE SODIUM 25 MCG TABLET PO SCH (06:30)
[2019-09-23 07:27] LABS: Basophils # (auto) 0.04 K/uL (0-0.2); Basophils % (auto) 0.5 %; Eosinophils # (auto) 0.03 K/uL (0-0.5); Eosinophils % (auto) 0.3 %; Hematocrit (blood only) 27.8 % (42-52); Hemoglobin 9.3 g/dL (14.0-18.0); Immature Granulocytes # (auto) 0.02 K/uL (0.00-0.02); Immature Granulocytes % (auto) 0.2 %; Lymphocytes # (auto) 1.55 K/uL (1.2-3.4); Mean Corpuscular Hemoglobin 34.6 pg (25-34); Mean Corpuscular Hgb Conc 33.5 g/dL (32-36); Mean Corpuscular Volume 103.3 fL (80-100); Mean Platelet Volume 10.3 fL (7.4-10.4); Monocytes # (auto) 0.65 K/uL (0.11-0.59); Monocytes % (auto) 7.6 %; Neutrophils % (auto) 73.4 %; Platelet Count 609 K/uL (130-400); RDW Coefficient of Variation 15.5 % (11.5-14.5); RDW Standard Deviation 58.4 fL (36.4-46.3); Red Blood Count 2.69 M/uL (4.7-6.1); White Blood Count 8.59 K/uL (4.8-10.8)
[2019-09-23 08:02] LABS: Albumin Level 1.7 gm/dl (3.4-5.0); BUN Creatinine Ratio 20.5 (10-20); Calcium 7.2 mg/dl (8.5-10.1); Creatinine Clr Calc Pharmacy 72.8 ml/min; Est GFR (Non-African American) 104.4; Potassium 2.9 mmol/L (3.5-5.1)
[2019-09-23 08:03] LABS: Albumin Globulin Ratio 0.4 (0.9-2); Bilirubin,Total 0.2 mg/dl (0.2-1); Globulin 3.9 gm/dl (2.5-4.0); Total Protein 5.6 gm/dl (6.4-8.2)
--- NOTE | 2019-09-23 08:10 | Anesthesiology Progress Note ---
Date of Service September 23, 2019 Anesthesia Post Procedure Vital Signs Vital Signs: Temp Pulse Pulse Pulse Resp BP BP 09/23/19 07:57 36.5 C 54 L 18 90/57 L 09/23/19 03:46 58 L 17 87/55 L 09/22/19 23:46 37.1 C 59 L 19 90/57 L 09/22/19 22:50 37.1 C 55 L 16 77/47 L 09/22/19 22:35 36.5 C 52 L 18 68/39 L 09/22/19 22:30 51 L 18 69/41 L 09/22/19 22:28 36.5 C 50 L 18 70/43 L 09/22/19 22:20 62 18 80/45 L 09/22/19 22:19 56 L 18 80/46 L 09/22/19 22:10 57 L 18 74/45 L 09/22/19 22:00 72 18 70/43 L 09/22/19 21:50 51 L 18 66/41 L 09/22/19 21:41 49 L 18 67/38 L 09/22/19 21:32 36.7 C 77 20 84/47 L 09/22/19 21:30 66 18 91/46 L 09/22/19 19:32 82 19 98/61 L 09/22/19 18:59 77 18 106/67 09/22/19 18:30 69 18 94/64 L 09/22/19 18:00 67 18 98/63 L 09/22/19 17:30 69 18 93/63 L 09/22/19 17:00 83 18 96/58 L 09/22/19 16:30 79 18 91/58 L 09/22/19 16:00 63 18 95/64 L 09/22/19 15:30 64 18 96/70 L 09/22/19 15:00 18 106/79 09/22/19 14:31 83 16 09/22/19 14:30 80 22 122/82 09/22/19 14:01 73 13 09/22/19 14:00 77 15 108/77 09/22/19 13:31 82 16 09/22/19 13:30 77 13 110/75 09/22/19 13:01 94 H 15 09/22/19 13:00 99 H 16 113/71 09/22/19 12:31 104 H 38 H 09/22/19 12:30 114 H 26 H 111/83 09/22/19 12:01 90 21 09/22/19 12:00 80 22 118/75 09/22/19 11:31 93 H 23 09/22/19 11:30 88 17 104/75 09/22/19 11:11 95 H 19 09/22/19 11:02 97 H 17 100/71 09/22/19 10:27 36.7 C 76 16 82/62 L Pulse Ox 09/23/19 07:57 97 09/23/19 03:46 96 09/22/19 23:46 99 09/22/19 22:50 99 09/22/19 22:35 99 09/22/19 22:30 09/22/19 22:28 99 09/22/19 22:20 99 09/22/19 22:19 100 09/22/19 22:10 99 09/22/19 22:00 99 09/22/19 21:50 96 09/22/19 21:41 100 09/22/19 21:32 100 09/22/19 21:30 100 09/22/19 19:32 98 09/22/19 18:59 09/22/19 18:30 95 09/22/19 18:00 96 09/22/19 17:30 96 09/22/19 17:00 96 09/22/19 16:30 95 09/22/19 16:00 96 09/22/19 15:30 97 09/22/19 15:00 96 09/22/19 14:31 96 09/22/19 14:30 96 09/22/19 14:01 96 09/22/19 14:00 96 09/22/19 13:31 95 09/22/19 13:30 95 09/22/19 13:01 98 09/22/19 13:00 96 09/22/19 12:31 97 09/22/19 12:30 97 09/22/19 12:01 97 09/22/19 12:00 98 09/22/19 11:31 96 09/22/19 11:30 96 09/22/19 11:11 97 09/22/19 11:02 95 09/22/19 10:27 97 Notes Mental Status: alert / awake / arousable and participated in evaluation Patient Amnestic to Procedure: Yes Nausea / Vomiting: adequately controlled Pain: adequately controlled Airway Patency, RR, SpO2: stable & adequate BP & HR: stable & adequate Hydration State: stable & adequate Anesthetic Complications: no major complications apparent and Pt Satisfied with anesthetic care
[2019-09-23] MEDS: PANTOprazole 40 MG TAB PO SCH (08:41)
[2019-09-23] MEDS: POTASSIUM CHLORIDE 20 MEQ TABCR PO SCH ×3 (08:42→22:10)
[2019-09-23] MEDS: PANCREAZE (LIPASE 10,500U) CAP PO SCH ×3 (08:42→17:15)
[2019-09-23] MEDS: CHOLECALCIFEROL (VITAMIN D) 400 UNITS TABLET PO SCH (08:43)
[2019-09-23] MEDS: CALCIUM 600MG + VIT D 400 IU TAB PO SCH ×2 (08:43→20:03)
[2019-09-23] MEDS: ASPIRIN 81 MG ECTAB PO SCH (08:43)
[2019-09-23] MEDS ORDERED: NON-FORMULARY MEDICATION (Food Supplemt, Lactose-Reduced [Ensure] 1 EA) PO SCH (09:00)
[2019-09-23 09:06] LABS: Ferritin 77.7 ng/ml (8-388); Thyroid Stimulating Hormone 5.12 uIu/ml (0.300-4.500)
[2019-09-23] MEDS ORDERED: POTASSIUM CHLORIDE / WTR 10 MEQ/100 ML PLCT IV ONE (11:06)
--- NOTE | 2019-09-23 11:36 | Surgery Progress Note ---
Date of Service September 23, 2019 Assessment & Plan (1) SBO (small bowel obstruction): pod 1 doing well. replace K+ advance diet. will re-eval this afternoon for possible d/c (2) Inguinal hernia: Subjective pt seen. feeling good. pain controlled. bay liquids. OOB without issue. Physical Exam Physical Exam: alert. nad abd: soft. expected ttp. wounds look good. Results & Data Vital Signs (Past 12 Hours) Vital Signs Temp Pulse Pulse Resp BP Pulse Ox 09/23/19 07:57 36.5 C 54 L 18 90/57 L 97 09/23/19 03:46 58 L 17 87/55 L 96 09/22/19 23:46 37.1 C 59 L 19 90/57 L 99 PG Care Time/CCT Total # of Minutes Spent Total Time Spent with Patient: Total time spent is greater than 50% in coordination of care (as documented) at patient's floor/unit and/or counseling patient: Coding Level of Care Code None Diagnoses SBO (small bowel obstruction) K56.609 Inguinal hernia K40.30 Laterality: unilateral Obstruction and gangrene presence: with obstruction but without gangrene Recurrence: not specified as recurrent (1) Inguinal hernia Laterality: unilateral Obstruction and gangrene presence: with obstruction but without gangrene Recurrence: not specified as recurrent Qualified Code(s): K40.30 - Unilateral inguinal hernia, with obstruction, without gangrene, not specified as recurrent
[2019-09-23 12:01] LABS: Folate (Folic Acid) 17.61 ng/ml (>5.38)
[2019-09-23] MEDS: POTASSIUM CHLORIDE / WTR 10 MEQ/100 ML PLCT IV SCH ×3 (12:03→14:31)
[2019-09-23] MEDS ORDERED: MAGNESIUM SULFATE / D5W 1 GM/100 ML BAG IV ONE (12:45)
--- NOTE | 2019-09-23 13:57 | Electrocardiogram Report ---
Test Reason : Blood Pressure : / mmHG Vent. Rate : 091 BPM Atrial Rate : 091 BPM P-R Int : 174 ms QRS Dur : 068 ms QT Int : 392 ms P-R-T Axes : 075 057 071 degrees QTc Int : 482 ms Normal sinus rhythm Nonspecific T wave abnormality Prolonged QT Abnormal ECG When compared with ECG of 23-NOV-2017 06:27, Nonspecific T wave abnormality now evident in Lateral leads Confirmed by Silvio Ross ([id number]) on 09/23/2019 1:57:29 PM Referred By: REFERRED SELF Confirmed By:Silvio Ross
[2019-09-23] MEDS ORDERED: IBUPROFEN 200 MG TAB PO PRN (14:36)
--- NOTE | 2019-09-23 19:58 | Hospitalist Progress Note ---
Date of Service September 23, 2019 Assessment & Plan (1) SBO (small bowel obstruction): POD #1 s/p reduction of small bowel obstruction, laparoscopic Inguinal Hernia Repair with Mesh- by Dr Bryant doing well from surgical standpoint diet, IVF, etc - defer to gen surg (2) Incarcerated right inguinal hernia: s/p laparoscopic repair of hernia and reduction of SBO POD #1 (3) Chronic deep vein thrombosis (DVT) of right lower extremity: previously on coumadin; no longer on such (4) BPH (benign prostatic hyperplasia): cont flomax (5) Celiac disease: cont gluten free diet EGD at [facility] by Dr Shields c/w celiac disease (6) Protein malnutrition: 2nd lymphocytic colitis? s/p colonoscopy 09/16 - colon bx's with lymphocytic colitis start budesonide?? consider GI consult (7) B12 deficiency: check folate/b12 and Fe studies (8) Hypomagnesemia: replace repeat mag level am (9) Hypokalemia: replace IV/PO repeat BMP am (10) Hypothyroid: TSH mildly high increase synthroid to 37.5mcg daily repeat TSH 6 weeks (11) Anemia: macrocytic cause?? Check b12/folate (12) GERD (gastroesophageal reflux disease): cont PPI (13) Lymphocytic colitis: path from 09/16 colonoscopy c/w such consider GI consult budesonide?? (14) DVT prophylaxis: if H/H remain stable consider heparin SC Admission and Anticipated Discharge Date Admission Date: September 22, 2019 Subjective patient c/o abdominal discomfort is already passing flatus since his surgery yesterday no nausea or emesis tolerating diet c/o chronic diarrhea with weight loss just had colonoscopy and EGD at [facility] within the last 2 weeks Review of Systems Constitutional: no fever Respiratory: no cough and no dyspnea Cardiovascular: no chest pain Physical Exam Constitutional: + not well developed, + not well nourished, no acute distress and no altered mental status ENMT: external ear and nose normal, oropharynx normal Respiratory: normal respiratory effort, lungs clear to auscultation Cardiovascular: Rate/Rhythm: regular rate and regular rhythm Heart Sounds: normal S1 and normal S2; no murmur Vessels: posterior tibial pulses present and dorsalis pedis pulses present; no JVD Extremities: no edema Gastrointestinal (Abdomen): Inspection/Auscultation: + abdomen distended (Mild) and normal bowel sounds Percussion/Palpation: + abdomen tender; no guarding and no hepatosplenomegaly Skin: abdominal wall incisions clean Psychiatric: Orientation: alert and oriented x 3 Results & Data Results & Data ([facility]) Vital Signs (Past 12 Hours) Vital Signs Temp Pulse Pulse Resp BP Pulse Ox 09/23/19 19:24 36.6 C 101 H 18 101/65 93 09/23/19 16:00 78 09/23/19 15:06 36.9 C 71 18 103/73 96 09/23/19 11:41 36.8 C 76 18 114/69 97 Laboratory Results Laboratory Results - last 24 hr 09/22/19 09/23/19 09/23/19 23:05 07:12 07:12 WBC 8.59 RBC 2.69 L Hgb 9.3 L Hct 27.8 L MCV 103.3 H MCH 34.6 H MCHC 33.5 RDW Std Deviation 58.4 H RDW Coeff of Tevin 15.5 H Plt Count 609 H MPV 10.3 Immature Gran % (Auto) 0.2 Neut % (Auto) 73.4 Lymph % (Auto) 18.0 [place] % (Auto) 7.6 Eos % (Auto) 0.3 Baso % (Auto) 0.5 Neut # (Auto) 6.30 Lymph # (Auto) 1.55 [place] # (Auto) 0.65 H Eos # (Auto) 0.03 Baso # (Auto) 0.04 Immature Gran # (Auto) 0.02 Sodium 144 Potassium 2.9 L D Chloride 115 H Carbon Dioxide 24 Anion Gap 5.0 BUN 14 Creatinine 0.67 Est Cr Clr Drug Dosing 72.8 Est GFR ( Amer) 121.0 Est GFR (Non-Af Amer) 104.4 BUN/Creatinine Ratio 20.5 H Glucose 74 Calcium 7.2 L Magnesium Iron Transferrin Transferrin % Sat Ferritin Total Bilirubin 0.2 AST 34 ALT 64 Alkaline Phosphatase 413 H Total Protein 5.6 L D Albumin 1.7 L Globulin 3.9 Albumin/Globulin Ratio 0.4 L Vitamin B12 Folate TSH Nasal Screen MRSA (PCR) Negative 09/23/19 09/23/19 09/23/19 07:12 11:01 11:01 WBC RBC Hgb Hct MCV MCH MCHC RDW Std Deviation RDW Coeff of Tevin Plt Count MPV Immature Gran % (Auto) Neut % (Auto) Lymph % (Auto) [place] % (Auto) Eos % (Auto) Baso % (Auto) Neut # (Auto) Lymph # (Auto) [place] # (Auto) Eos # (Auto) Baso # (Auto) Immature Gran # (Auto) Sodium Potassium Chloride Carbon Dioxide Anion Gap BUN Creatinine Est Cr Clr Drug Dosing Est GFR ( Amer) Est GFR (Non-Af Amer) BUN/Creatinine Ratio Glucose Calcium Magnesium 1.6 L Iron 17 L Transferrin 160 L Transferrin % Sat 8 L Ferritin 77.7 Total Bilirubin AST ALT Alkaline Phosphatase Total Protein Albumin Globulin Albumin/Globulin Ratio Vitamin B12 921 H Folate 17.61 TSH 5.120 H Nasal Screen MRSA (PCR) PG Care Time/CCT Total # of Minutes Spent Total Time Spent with Patient: Total time spent is greater than 50% in coordination of care (as documented) at patient's floor/unit and/or counseling patient: Coding Level of Care Code 66713 Subseq Hosp Care Lvl 2 Diagnoses SBO (small bowel obstruction) K56.609 Incarcerated right inguinal hernia K40.30 Chronic deep vein thrombosis (DVT) of right lower extremity I82.501 BPH (benign prostatic hyperplasia) N40.0 Celiac disease K90.0 Protein malnutrition E46 B12 deficiency E53.8 Hypomagnesemia E83.42 Hypokalemia E87.6 Hypothyroid E03.9 Anemia D64.9 Anemia type: other cause GERD (gastroesophageal reflux disease) K21.9 Lymphocytic colitis K52.832 DVT prophylaxis Z29.9 (1) Anemia Anemia type: other cause
[2019-09-23] MEDS: MAGNESIUM OXIDE 400 MG TAB PO SCH (20:02)
[2019-09-23] MEDS: ACETAMINOPHEN 325 MG TAB PO PRN (20:02)
[2019-09-23] MEDS: FOLIC ACID 1 MG TAB PO SCH (20:02)
[2019-09-23] MEDS: MIRTAZAPINE SOLTAB 15 MG PO SCH (20:02)
[2019-09-23] MEDS: bisacodyL 5 MG TABEC PO SCH (20:03)
[2019-09-23] MEDS: TAMSULOSIN HCL 0.4 MG CAP PO SCH (20:04)
[2019-09-24] MEDS: LACTATED RINGER'S 1,000 ML IV SCH ×2 (01:42→12:52)
[2019-09-24] MEDS ORDERED: LOPERAMIDE HCL 2 MG CAP PO PRN (03:03)
[2019-09-24] MEDS: LEVOTHYROXINE SODIUM 75 MCG TABLET PO SCH (06:04)
[2019-09-24 06:32] LABS: BUN Creatinine Ratio 17.6 (10-20); Calcium 7.1 mg/dl (8.5-10.1); Creatinine Clr Calc Pharmacy 84.1 ml/min; Est GFR (African American) 128.4; Est GFR (Non-African American) 110.8; Magnesium 1.5 mg/dl (1.8-2.4); Potassium 2.5 mmol/L (3.5-5.1)
[2019-09-24] MEDS ORDERED: POTASSIUM CHLORIDE 20 MEQ TABCR PO STA (06:39)
[2019-09-24] MEDS: POTASSIUM CHLORIDE / WTR 10 MEQ/100 ML PLCT IV SCH ×6 (07:28→12:52)
[2019-09-24] MEDS: MAGNESIUM SULFATE / D5W 1 GM/100 ML BAG IV SCH ×2 (08:27→10:10)
[2019-09-24] MEDS: CALCIUM 600MG + VIT D 400 IU TAB PO SCH ×2 (08:33→20:48)
[2019-09-24] MEDS: PANTOprazole 40 MG TAB PO SCH (08:33)
[2019-09-24] MEDS: CHOLECALCIFEROL (VITAMIN D) 400 UNITS TABLET PO SCH (08:33)
[2019-09-24] MEDS: ASPIRIN 81 MG ECTAB PO SCH (08:34)
[2019-09-24] MEDS: PANCREAZE (LIPASE 10,500U) CAP PO SCH ×3 (08:34→16:58)
--- NOTE | 2019-09-24 09:51 | Surgery Progress Note ---
Date of Service September 24, 2019 Assessment & Plan (1) Incarcerated right inguinal hernia: POD#2 release of small bowel obstruction with repair of right inguinal hernia Patient with electrolyte abnormalities, K: 2.5, M.5, currently being repleted With history of weight loss and chronic diarrhea will discuss with medicine if they have any other thoughts for workup/management, possible GI consult? From a surgical standpoint he is progressing well. Will keep today for further medical management Will continue regular diet (gluten free) as pt tolerates. Microarray Analyst saw pt yesterday and ordered supplements as above. replace K+. bay diet. progressing as expected surgically. d/c planning. will d/w IM regarding concerns prior to d/c. Subjective Patient says he is trying to eat what he can. He is having frequent bowel movements. Has some pain near groin, especially with coughing. He says he does not feel ready for discharge yet. Physical Exam Physical Exam: awake/alert Gastrointestinal (Abdomen): Inspection/Auscultation: + abdominal surgical incision (c/d/i, no sign of infection) Results & Data Vital Signs (Past 12 Hours) Vital Signs Temp Pulse Resp BP Pulse Ox 09/24/19 07:51 37.1 C 115 H 18 90/58 L 94 09/24/19 05:29 134 H 96/70 L 09/24/19 03:24 111 H 19 99/65 L 94 09/23/19 23:19 110 H 20 96/75 L 93 PG Care Time/CCT Total # of Minutes Spent Total Time Spent with Patient: Total time spent is greater than 50% in coordination of care (as documented) at patient's floor/unit and/or counseling patient: Coding Level of Care Code None Diagnoses Incarcerated right inguinal hernia K40.30
[2019-09-24] MEDS ORDERED: POTASSIUM CHLORIDE / WTR 10 MEQ/100 ML PLCT IV SCH (10:00)
--- NOTE | 2019-09-24 10:57 | Gastrointestinal Consultation ---
Date of Consultation September 24, 2019 Assessment & Plan (1) Lymphocytic colitis: This findings is often associated with Celiac Disease and can be caused by continued gluten exposure. Will assess level of exposure to gluten by ordering tissue transglutaminase IGA antibody. Will verify no bacterial cause of diarrhea with stool for C-diff and culture. Begin PO Budesonide 9mg/day x 1 month, 6mg/day x 1 month, 3mg/day x 1 month. Diet per surgery. Present on Admission?: Yes (2) Celiac disease: Gluten free diet. Present on Admission?: Yes Supervising Physician Co-Signing Physician Notes I have personally seen and examined the patient with MISTY Garcia. Her note reflects my exam and findings. I agree with her impression and plan. Recent small bowel biopsies showed evidence of celiac which is concerning for gluten exposure in diet. Check blood celiac markers. Strict gluten free diet. Brenton Alicia M.D. History of Present Illness Reason for Consultation: celiac dis; lymphocytic colitis; failure thrive Requesting Physician: Dr. Mishra Attending Physician: Marcial Bryant DO History of Present Illness Mr. Rikki Pascual is a 58 yr old male with a hx of Celiac Dx, hypothyroidism, depression, GERD, DVT who underwent repair of incarcerated right inguinal hernia by Dr. Bryant on 09/19. GI is consulted for diarrhea. The pt underwent EGD and colonoscopy in 2018 for diarrhea with findings of Celiac and lymphocytic colitis. He is a bit unclear in his hx of when his diarrhea restarted but he tells us that he has been on a gluten free diet and that he did have a period with minimal diarrhea after the initial dx of Celiac Disease. He has had singificant weight loss, which he attributes to after meal pain in the area of the right inguinal hernia and he anticipates that he will be able to eat "better," now that he has undergone surgery. Most recent endoscopies: EGD 09/17/19 Dr. Shields: - Normal esophagus. - Small hiatal hernia. - Duodenal mucosal changes seen, diagnostic of celiac disease. Biopsied. Colonoscopy 09/17/19 Dr. Shields - The examined portion of the ileum was normal. - Normal mucosa in the entire examined colon. Biopsied. - The distal rectum and anal verge are normal on retroflexion view. Path: A. Small bowel, duodenum, biopsies: Crypt hyperplastic villous atrophy with intraepithelial lymphocytosis consistent with gluten-sensitive enteropathy (celiac sprue) B. Colon, random, biopsies: Lymphocytic colitis Allergies Allergy/AdvReac Type Severity Reaction Status Date / Time gluten Allergy Unknown GI SYMPTOMS Verified 09/22/19 11:41 Penicillins Allergy Unknown unknown Unverified 09/22/19 11:41 lactose AdvReac Gastrointestinal Unverified 09/22/19 11:41 Upset Home Medications Home Medications Medication Instructions Recorded Confirmed Type acetaminophen [Tylenol Extra 1,000 mg PO TID PRN 09/22/19 09/22/19 History Strength] aspirin [Aspirin Childrens] 81 mg PO DAILY 09/22/19 09/22/19 History bisacodyl 5 mg PO HS 09/22/19 09/22/19 History calcium carbonate [Calcium 600] 600 mg PO BID 09/22/19 09/22/19 History cholecalciferol (vitamin D3) 250 mcg PO DAILY 09/22/19 09/22/19 History [Vitamin D3] cyanocobalamin (vitamin B-12) 1,000 mcg SUBCUT MONTHLY 09/22/19 09/22/19 History ferrous sulfate 325 mg PO HS 09/22/19 09/22/19 History folic acid 1 mg PO HS 09/22/19 09/22/19 History food supplemt, lactose-reduced 1 ea PO TID 09/22/19 09/22/19 History [Ensure] levothyroxine 25 mcg PO HS 09/22/19 09/22/19 History fmqplb-kxribugx-enocmqp [Creon] 1 cap PO TID 09/22/19 09/22/19 History magnesium oxide 400 mg PO HS 09/22/19 09/22/19 History mineral oil-hydrophil petrolat 1 applic TOPICAL BID PRN 09/22/19 09/22/19 History [DermaPhor] mirtazapine 15 mg PO HS 09/22/19 09/22/19 History pantoprazole 40 mg PO DAILY 09/22/19 09/22/19 History potassium chloride 20 meq PO HS 09/22/19 09/22/19 History tamsulosin 0.4 mg PO HS 09/22/19 09/22/19 History Patient History Medical History Anemia (Resolved) B12 deficiency BPH (benign prostatic hyperplasia) Celiac disease Chronic deep vein thrombosis (DVT) Chronic deep vein thrombosis (DVT) of right lower extremity Coagulopathy GERD (gastroesophageal reflux disease) Hypothyroid (Chronic) Prolonged Q-T interval on ECG Protein malnutrition Vitamin K deficiency Surgical History H/O splenectomy (Resolved) Family History Other No pertinent family history Social History Smoking Status: Former smoker Second Hand Exposure: No; Hx Alcohol Use: No Hx Substance Use: No Preferred Language: Belarusian Communication Ability: Effective Sleep Tech Required: No Beliefs That Will Affect Care: None Current Living Situation: Other Feels Safe at Home: Yes Safety Concerns: Feels Safe At This Time Review of Systems Review of Systems: ROS: Gen:+ weight loss; but denies weakness, fevers Eyes: No eye redness, or pain, no recent vision changes Resp: No SOB, no cough Cardio: No palpitations/irregular beats, no chest pain GI: Abd pain and diarrhea, See HPI : Denies pain on urination Skin: No jaundice, itching or new rashes Physical Exam Constitutional: WD/WN, vitals as above + cachectic Eyes: PERRL, conjunctivae normal, anicteric sclerae ENMT: external ear and nose normal, oropharynx normal Neck: trachea midline, no thyromegaly Respiratory: normal respiratory effort, lungs clear to auscultation Cardiovascular: RRR, no murmur, no edema Gastrointestinal (Abdomen): Inspection/Auscultation: normal bowel sounds (present but hypoactive); abdomen not distended Percussion/Palpation: abdomen soft; abdomen nontender and no ascites laparoscopic surgery inscisions healing well. Skin: no rashes, warm and dry Neurologic: PERRL, EOMI, accommodation nl, no face palsy, no dysarthria Psychiatric: A+Ox3, euthymic affect Lymphatic: no cervical or axillary lymphadenopathy Results & Data ([facility]) Vital Signs (Past 12 Hours) Vital Signs Temp Pulse Resp BP Pulse Ox 09/24/19 07:51 37.1 C 115 H 18 90/58 L 94 09/24/19 05:29 134 H 96/70 L 09/24/19 03:24 111 H 19 99/65 L 94 09/23/19 23:19 110 H 20 96/75 L 93 Laboratory Results WBC 8.5, Hb 9.3, Hct 27, platelets 158, NA 144, k 2.5, bun 10, Cr 0.5, Glucose 85. Diagnostic Findings CT with IV, no oral contrast on 09/21: 1. Findings are consistent with a high-grade small bowel obstruction, likely related to an incarcerated loop of small bowel within a right inguinal hernia. 2. There is trace abdominopelvic ascites. No intraperitoneal free air is seen. 3. Findings suggest a nonspecific proctitis. Clinical correlation will be required. 4. There is a small to moderate hiatal hernia with wall thickening noted in the distal esophagus. Correlate for evidence of esophagitis. This can be further assessed with endoscopy if clinically warranted. 5. There are numerous enlarged mesenteric lymph nodes which may be on a reactive basis. Clinical correlation will be required. 6. Cachexia. 7. Question polyposis of the right colon. This is not well evaluated by CT, and follow-up with a nonemergent colonoscopy is recommended for further assessment. 8. Additional findings as above.
[2019-09-24] MEDS: ACETAMINOPHEN 325 MG TAB PO PRN (17:07)
[2019-09-24] MEDS: bisacodyL 5 MG TABEC PO SCH (20:46)
[2019-09-24] MEDS: MIRTAZAPINE SOLTAB 15 MG PO SCH (20:48)
[2019-09-24] MEDS: FOLIC ACID 1 MG TAB PO SCH (20:48)
[2019-09-24] MEDS: MAGNESIUM OXIDE 400 MG TAB PO SCH (20:48)
[2019-09-24] MEDS: TAMSULOSIN HCL 0.4 MG CAP PO SCH (20:48)
[2019-09-24] MEDS: HEPARIN SOD 5,000 UNIT/0.5 ML VIAL SQ SCH (20:49)
[2019-09-24] MEDS: POTASSIUM CHLORIDE 20 MEQ TABCR PO SCH (20:49)
--- NOTE | 2019-09-24 20:56 | Hospitalist Progress Note ---
Date of Service September 24, 2019 Assessment & Plan (1) SBO (small bowel obstruction): POD #3 s/p reduction of small bowel obstruction, laparoscopic Inguinal Hernia Repair with Mesh- by Dr Bryant doing well from surgical standpoint diet advanced to gluten free replace low k and low mag control post-op pain (2) Incarcerated right inguinal hernia: s/p laparoscopic repair of hernia and reduction of SBO POD #2 (3) Chronic deep vein thrombosis (DVT) of right lower extremity: previously on coumadin; no longer on such (4) BPH (benign prostatic hyperplasia): cont flomax (5) Celiac disease: cont gluten free diet EGD at [facility] by Dr Shields c/w celiac disease which suggests noncompliance with gluten free diet at intermediate (6) Lymphocytic colitis: path from 09/16 colonoscopy c/w such [facility] GI consult appreciated starting budesonide 9mg daily which is ok with gen surg c diff neg stool cx pending start loperamide scheduled in light of numerous stools and electrolyte wasting (7) Protein malnutrition: severe 2nd lymphocytic colitis, celiac, etc s/p colonoscopy 09/16 - colon bx's with lymphocytic colitis needs better compliance with gluten free diet (8) B12 deficiency: folate/b12 and Fe studies acceptable (9) Hypomagnesemia: severe 2nd GI wasting replace IV/PO repeat mag level am (10) Hypokalemia: replace IV/PO repeat BMP am replete low mag 2nd GI wasting (11) Hypothyroid: TSH mildly high increased synthroid to 37.5mcg daily repeat TSH 6 weeks (12) Anemia: macrocytic cause?? b12/folate wnl other nutritional deficiency?? (13) GERD (gastroesophageal reflux disease): cont PPI (14) DVT prophylaxis: heparin SC BID discussed care with GI and gen surg today Admission and Anticipated Discharge Date Admission Date: September 22, 2019 Subjective patient continues with severe diarrhea - 5+ episodes thru the night, and 2-3 this am. liquid. mild lower abd pain. no nausea/emesis. tolerating gluten free diet. tele with rapid a.fib for 20 minutes likely related to low K and low mag. now back in NSR. Review of Systems Constitutional: no fever and no chills Respiratory: no dyspnea Cardiovascular: no chest pain and no palpitations Physical Exam Constitutional: + thin, + cachectic and + frail appearing; + not well developed, + not well nourished, no acute distress and no altered mental status ENMT: external ear and nose normal, oropharynx normal Respiratory: normal respiratory effort, lungs clear to auscultation Cardiovascular: Rate/Rhythm: regular rate and regular rhythm Heart Sounds: normal S1 and normal S2; no murmur Vessels: posterior tibial pulses present and dorsalis pedis pulses present; no JVD Extremities: no edema Gastrointestinal (Abdomen): Inspection/Auscultation: + abdomen distended (Mild) and normal bowel sounds Percussion/Palpation: + abdomen tender; no guarding and no hepatosplenomegaly Skin: + pallor incisions abdominal wall clean Psychiatric: Orientation: alert and oriented x 3 Results & Data Results & Data ([facility]) Vital Signs (Past 12 Hours) Vital Signs Temp Pulse Pulse Resp BP Pulse Ox 09/24/19 19:15 37.3 C 105 H 16 104/67 93 09/24/19 15:14 37.5 C 92 H 16 101/69 94 09/24/19 15:00 95 H 09/24/19 11:01 37.0 C 95 H 16 96/67 L 96 Laboratory Results Laboratory Results - last 24 hr 09/24/19 09/24/19 09/24/19 05:36 14:06 15:02 Sodium 144 Potassium 2.5 L* Chloride 114 H Carbon Dioxide 23 Anion Gap 7.0 BUN 10 Creatinine 0.58 L Est Cr Clr Drug Dosing 84.1 Est GFR ( Amer) 128.4 Est GFR (Non-Af Amer) 110.8 BUN/Creatinine Ratio 17.6 Glucose 85 Calcium 7.1 L Magnesium 1.5 L Stl C. diff Tox B Gene Negative Cdiff Gene Tiss Transglutamin IgA Pending PG Care Time/CCT Total # of Minutes Spent Total Time Spent with Patient: Total time spent is greater than 50% in coordination of care (as documented) at patient's floor/unit and/or counseling patient: Coding Level of Care Code 34628 Subseq Hosp Care Lvl 3 Diagnoses SBO (small bowel obstruction) K56.609 Incarcerated right inguinal hernia K40.30 Chronic deep vein thrombosis (DVT) of right lower extremity I82.501 BPH (benign prostatic hyperplasia) N40.0 Celiac disease K90.0 Lymphocytic colitis K52.832 Protein malnutrition E46 B12 deficiency E53.8 Hypomagnesemia E83.42 Hypokalemia E87.6 Hypothyroid E03.9 Anemia D64.9 Anemia type: other cause GERD (gastroesophageal reflux disease) K21.9 DVT prophylaxis Z29.9 (1) Anemia Anemia type: other cause
[2019-09-25] MEDS: LACTATED RINGER'S 1,000 ML IV SCH (00:25)
[2019-09-25 06:00] LABS: Hematocrit (blood only) 27.6 % (42-52); Hemoglobin 9.3 g/dL (14.0-18.0); Mean Corpuscular Hemoglobin 34.1 pg (25-34); Mean Corpuscular Hgb Conc 33.7 g/dL (32-36); Mean Corpuscular Volume 101.1 fL (80-100); Mean Platelet Volume 10.9 fL (7.4-10.4); Nucleated RBC # (auto) 0.02 K/uL (0-0); Nucleated RBC % (auto) 0.3 %; Platelet Count 493 K/uL (130-400); RDW Coefficient of Variation 15.3 % (11.5-14.5); Red Blood Count 2.73 M/uL (4.7-6.1); White Blood Count 9.49 K/uL (4.8-10.8)
[2019-09-25] MEDS: LEVOTHYROXINE SODIUM 75 MCG TABLET PO SCH (06:12)
[2019-09-25 06:39] LABS: BUN Creatinine Ratio 13.2 (10-20); Calcium 7.1 mg/dl (8.5-10.1); Creatinine Clr Calc Pharmacy 110.9 ml/min; Est GFR (African American) 143.9; Est GFR (Non-African American) 124.1; Magnesium 1.5 mg/dl (1.8-2.4); Phosphorus 1.3 mg/dl (2.5-4.9); Potassium 2.4 mmol/L (3.5-5.1)
[2019-09-25] MEDS ORDERED: POTASSIUM CHLORIDE 20 MEQ TABCR PO STA (06:43)
[2019-09-25] MEDS ORDERED: POTASSIUM PHOS 3 MMOL/1 ML INFUSION IV STA (06:43)
[2019-09-25] MEDS ORDERED: POTASSIUM PHOSPHATE 21 MMOL in SODIUM CHLORIDE 0.9% 500 ML IV ONE (07:15)
[2019-09-25] MEDS: MAGNESIUM SULFATE / D5W 1 GM/100 ML BAG IV SCH ×2 (07:44→09:38)
[2019-09-25] MEDS: POTASSIUM CHLORIDE / WTR 10 MEQ/100 ML PLCT IV SCH ×6 (08:18→14:03)
[2019-09-25] MEDS: ASPIRIN 81 MG ECTAB PO SCH (08:19)
[2019-09-25] MEDS: LOPERAMIDE HCL 2 MG CAP PO SCH ×2 (08:19→21:43)
[2019-09-25] MEDS: PANTOprazole 40 MG TAB PO SCH (08:20)
[2019-09-25] MEDS: PANCREAZE (LIPASE 10,500U) CAP PO SCH ×3 (08:20→17:39)
[2019-09-25] MEDS: CHOLECALCIFEROL (VITAMIN D) 400 UNITS TABLET PO SCH (08:20)
[2019-09-25] MEDS: BUDESONIDE EC 3 MG CAP PO SCH (08:21)
[2019-09-25] MEDS: CALCIUM 600MG + VIT D 400 IU TAB PO SCH ×2 (09:35→21:42)
[2019-09-25] MEDS: HEPARIN SOD 5,000 UNIT/0.5 ML VIAL SQ SCH ×2 (09:38→21:43)
--- NOTE | 2019-09-25 10:46 | Gastroenterology Progress Note ---
Date of Service September 25, 2019 Assessment & Plan (1) Lymphocytic colitis: Diarrhea and lymphocytic colitis is most likely associated with Celiac Disease and and diarrhea most likely caused by continued gluten exposure. Please review stool culture and tTG when available. Continue antidiarrheals. Appreciate primary hospitalists efforts to correct hypokalemia and hypomagnesium. Continue tx of lymphocytic colitis with budesonide 9mg/day x 1 month, then 6mg/day x 1 month then 3mg/day x 1 month. GI will watch peripherally. (2) Celiac disease: Gluten free diet. Admission and Anticipated Discharge Date Admission Date: September 22, 2019 Supervising Physician Co-Signing Physician Notes I have personally seen and examined the patient with MISTY Garcia on 09/25/19. Her note reflects my exam and findings. I agree with her impression and plan. Cont current treatment. Awaiting some tests still. Bretnon Alicia M.D. Subjective Mr. Rikki Pascual is a 58 yr old male admitted for incarcerated rt inguinal hernia, no Post op Day #3. Today: comfortable, diarrhea improved. 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 C-diff (-) tTg pending K 2.4, Mg 1.5. Review of Systems Review of Systems: ROS: Gen:+ weight loss; but denies weakness, fevers Eyes: No eye redness, or pain, no recent vision changes Resp: No SOB, no cough Cardio: No palpitations/irregular beats, no chest pain GI: Abd pain and diarrhea, See HPI : Denies pain on urination Skin: No jaundice, itching or new rashes Physical Exam Constitutional: WD/WN, vitals as above + cachectic Eyes: PERRL, conjunctivae normal, anicteric sclerae ENMT: external ear and nose normal, oropharynx normal Neck: trachea midline, no thyromegaly Respiratory: normal respiratory effort, lungs clear to auscultation Cardiovascular: RRR, no murmur, no edema Gastrointestinal (Abdomen): Inspection/Auscultation: normal bowel sounds (present but hypoactive); abdomen not distended Percussion/Palpation: abdomen soft; abdomen nontender and no ascites Skin: no rashes, warm and dry Neurologic: PERRL, EOMI, accommodation nl, no face palsy, no dysarthria Psychiatric: A+Ox3, euthymic affect Lymphatic: no cervical or axillary lymphadenopathy Results & Data ([facility]) Vital Signs (Past 12 Hours) Vital Signs Temp Pulse Pulse Resp BP Pulse Ox 09/25/19 07:35 102 H 18 103/63 93 09/25/19 03:26 37.0 C 101 H 18 105/73 94 09/24/19 23:08 97 H 17 114/77 94 09/24/19 22:47 115 H
--- NOTE | 2019-09-25 11:13 | XCELERA ---
[id number]
[2019-09-25] MEDS: THIAMINE HCL 200 MG in SODIUM CHLORIDE 0.9% 50 ML IV SCH ×2 (11:23→21:50)
--- NOTE | 2019-09-25 11:28 | Surgery Progress Note ---
Date of Service September 25, 2019 Assessment & Plan (1) Inguinal hernia: Rikki is recovering nicely from his surgery. Currently with no surgical issues. He does have multiple GI and medical issues that gastroenterology and medicine are working on. Medicine is nice enough to take him onto their service. We will continue to be around and follow while he is in the hospital. Regarding his surgery he could return to his correctional facility whenever medicine and GI feel he is ready. Subjective Patient postoperative day #3. Doing better each day. He still having GI difficulties eating but this is not new for him. Regarding the surgery the pain is improved today. Physical Exam Physical Exam: Alert. No acute distress. Abdomen is soft. Repair feels solid and incisions are healing nicely. Results & Data Vital Signs (Past 12 Hours) Vital Signs Temp Pulse Resp BP Pulse Ox 09/25/19 07:35 102 H 18 103/63 93 09/25/19 03:26 37.0 C 101 H 18 105/73 94 PG Care Time/CCT Total # of Minutes Spent Total Time Spent with Patient: Total time spent is greater than 50% in coordination of care (as documented) at patient's floor/unit and/or counseling patient: Coding Level of Care Code None Diagnoses Inguinal hernia K40.30 Laterality: unilateral Obstruction and gangrene presence: with obstruction but without gangrene Recurrence: not specified as recurrent (1) Inguinal hernia Laterality: unilateral Obstruction and gangrene presence: with obstruction but without gangrene Recurrence: not specified as recurrent Qualified Code(s): K40.30 - Unilateral inguinal hernia, with obstruction, without gangrene, not specified as recurrent
[2019-09-25] MEDS ORDERED: FOLIC ACID 1 MG in SYRINGE 9.8 ML IV ONE (11:30)
[2019-09-25] MEDS ORDERED: LACTASE 3000 UNIT TAB PO PRN (14:48)
[2019-09-25] MEDS: POTASSIUM CHLORIDE 40 MEQ in LACTATED RINGER'S 1,000 ML IV SCH (15:19)
[2019-09-25 18:27] LABS: Magnesium 1.8 mg/dl (1.8-2.4)
[2019-09-25 18:29] LABS: Potassium 3.1 mmol/L (3.5-5.1)
[2019-09-25] MEDS ORDERED: MAGNESIUM SULFATE / D5W 1 GM/100 ML BAG IV ONE (20:00)
--- NOTE | 2019-09-25 21:06 | Hospitalist Progress Note ---
Date of Service September 25, 2019 Assessment & Plan (1) SBO (small bowel obstruction): POD #4 s/p reduction of small bowel obstruction, laparoscopic Inguinal Hernia Repair with Mesh- by Dr Bryant diet advanced to gluten free replace low k and low mag control post-op pain spoke with surgery - they have asked hospitalist team to assume care; happy to accept (2) Incarcerated right inguinal hernia: s/p laparoscopic repair of hernia and reduction of SBO POD #4 (3) Celiac disease: cont gluten free diet EGD at [facility] by Dr Shields c/w celiac disease which suggests noncompliance with gluten free diet at detention heavily contributing to failure to thrive and diarrhea w/ weight loss (4) Lymphocytic colitis: path from 09/16 colonoscopy c/w such [facility] GI consult appreciated started budesonide 9mg daily which is ok with gen surg c diff neg stool cx pending started loperamide scheduled in light of numerous stools and electrolyte wasting (5) Protein malnutrition: severe 2nd lymphocytic colitis, celiac, etc s/p colonoscopy 09/16 - colon bx's with lymphocytic colitis needs better compliance with gluten free diet (6) B12 deficiency: folate/b12 and Fe studies acceptable given macrocytosis, however, will place on empiric folate IV also supplement thiamine and MVI (7) Hypomagnesemia: severe 2nd GI wasting replace IV/PO repeat mag level tonight and in am (8) Hypokalemia: replace IV/PO and place IV K in basal fluids repeat BMP am replete low mag 2nd GI wasting (9) Hypothyroid: TSH mildly high increased synthroid to 37.5mcg daily repeat TSH 6 weeks (10) Anemia: macrocytic cause?? b12/folate wnl other nutritional deficiency?? (copper, etc) MVI folate supplementation (11) GERD (gastroesophageal reflux disease): cont PPI but consider changing to H2 bharathi as PPI can make low mag worse (12) Chronic deep vein thrombosis (DVT) of right lower extremity: previously on coumadin; no longer on such (13) BPH (benign prostatic hyperplasia): cont flomax (14) DVT prophylaxis: heparin SC BID progressing slowly replace lytes Admission and Anticipated Discharge Date Admission Date: September 22, 2019 Subjective no further runs a.fib diarrhea improved - still liquid, but frequency down mild lower abdominal discomfort tolerating diet no nausea or emesis no new complaints. Review of Systems Constitutional: no fever Respiratory: no dyspnea Cardiovascular: no chest pain Gastrointestinal: as per Subjective / HPI Physical Exam Constitutional: + thin, + cachectic and + frail appearing; + not well developed, + not well nourished, no acute distress and no altered mental status ENMT: external ear and nose normal, oropharynx normal Respiratory: normal respiratory effort, lungs clear to auscultation Cardiovascular: Rate/Rhythm: regular rate and regular rhythm Heart Sounds: normal S1 and normal S2; no murmur Vessels: posterior tibial pulses present and dorsalis pedis pulses present; no JVD Extremities: no edema Gastrointestinal (Abdomen): Inspection/Auscultation: + abdomen distended (Mild) and normal bowel sounds Percussion/Palpation: + abdomen tender (lower abdomen ); no guarding and no hepatosplenomegaly Skin: + pallor incisions abd wall clean Psychiatric: Orientation: alert and oriented x 3 Results & Data Results & Data ([facility]) Vital Signs (Past 12 Hours) Vital Signs Temp Pulse Resp BP Pulse Ox 09/25/19 19:58 36.5 C 84 16 112/70 95 09/25/19 15:15 36.8 C 91 H 20 101/67 95 09/25/19 11:30 37.1 C 80 18 93/61 L 92 Laboratory Results Laboratory Results - last 24 hr 09/25/19 09/25/19 09/25/19 05:31 05:31 17:59 WBC 9.49 RBC 2.73 L Hgb 9.3 L Hct 27.6 L MCV 101.1 H MCH 34.1 H MCHC 33.7 RDW Std Deviation 56.0 H RDW Coeff of Tevin 15.3 H Plt Count 493 H MPV 10.9 H Absolute Nucleated RBC 0.02 H Nucleated RBC % (auto) 0.3 Sodium 141 Potassium 2.4 L* 3.1 L D Chloride 114 H Carbon Dioxide 21 Anion Gap 6.0 BUN 6 L Creatinine 0.44 L Est Cr Clr Drug Dosing 110.9 Est GFR ( Amer) 143.9 Est GFR (Non-Af Amer) 124.1 BUN/Creatinine Ratio 13.2 Glucose 75 Calcium 7.1 L Phosphorus 1.3 L* Magnesium 1.5 L 1.8 PG Care Time/CCT Total # of Minutes Spent Total Time Spent with Patient: Total time spent is greater than 50% in coordination of care (as documented) at patient's floor/unit and/or counseling patient: Coding Level of Care Code 64059 Subseq Hosp Care Lvl 2 Diagnoses SBO (small bowel obstruction) K56.609 Incarcerated right inguinal hernia K40.30 Celiac disease K90.0 Lymphocytic colitis K52.832 Protein malnutrition E46 B12 deficiency E53.8 Hypomagnesemia E83.42 Hypokalemia E87.6 Hypothyroid E03.9 Anemia D64.9 Anemia type: other cause GERD (gastroesophageal reflux disease) K21.9 Chronic deep vein thrombosis (DVT) of right lower extremity I82.501 BPH (benign prostatic hyperplasia) N40.0 DVT prophylaxis Z29.9 (1) Anemia Anemia type: other cause
[2019-09-25] MEDS: POTASSIUM CHLORIDE 20 MEQ TABCR PO SCH (21:42)
[2019-09-25] MEDS: MIRTAZAPINE SOLTAB 15 MG PO SCH (21:43)
[2019-09-25] MEDS: TAMSULOSIN HCL 0.4 MG CAP PO SCH (21:43)
[2019-09-25] MEDS: MAGNESIUM OXIDE 400 MG TAB PO SCH (21:43)
[2019-09-25] MEDS: bisacodyL 5 MG TABEC PO SCH (21:44)
[2019-09-25] MEDS: ACETAMINOPHEN 325 MG TAB PO PRN (23:46)
[2019-09-26] MEDS: POTASSIUM CHLORIDE 40 MEQ in LACTATED RINGER'S 1,000 ML IV SCH (03:48)
[2019-09-26] MEDS: LEVOTHYROXINE SODIUM 75 MCG TABLET PO SCH (06:07)
[2019-09-26 07:52] LABS: Calcium 7.1 mg/dl (8.5-10.1); Creatinine Clr Calc Pharmacy 107.1 ml/min; Est GFR (African American) 143.9; Est GFR (Non-African American) 124.1; Magnesium 1.7 mg/dl (1.8-2.4); Phosphorus 1.3 mg/dl (2.5-4.9); Potassium 2.6 mmol/L (3.5-5.1)
[2019-09-26] MEDS ORDERED: POTASSIUM PHOS 3 MMOL/1 ML INFUSION IV STA (08:24)
[2019-09-26] MEDS ORDERED: POTASSIUM PHOSPHATE 30 MMOL in SODIUM CHLORIDE 0.9% 500 ML IV ONE (09:00)
[2019-09-26] MEDS: LOPERAMIDE HCL 2 MG CAP PO SCH ×2 (09:12→21:18)
[2019-09-26] MEDS: CALCIUM 600MG + VIT D 400 IU TAB PO SCH ×2 (09:12→21:18)
[2019-09-26] MEDS: FOLIC ACID 1 MG in SYRINGE 9.8 ML IV SCH (09:12)
[2019-09-26] MEDS: PANTOprazole 40 MG TAB PO SCH (09:13)
[2019-09-26] MEDS: ASPIRIN 81 MG ECTAB PO SCH (09:13)
[2019-09-26] MEDS: HEPARIN SOD 5,000 UNIT/0.5 ML VIAL SQ SCH ×2 (09:14→21:22)
[2019-09-26] MEDS: CHOLECALCIFEROL (VITAMIN D) 400 UNITS TABLET PO SCH (09:14)
[2019-09-26] MEDS: BUDESONIDE EC 3 MG CAP PO SCH (09:14)
[2019-09-26] MEDS: MAGNESIUM SULFATE / D5W 1 GM/100 ML BAG IV SCH ×4 (09:15→23:26)
[2019-09-26] MEDS: PANCREAZE (LIPASE 10,500U) CAP PO SCH ×3 (09:15→16:31)
[2019-09-26] MEDS: THIAMINE HCL 200 MG in SODIUM CHLORIDE 0.9% 50 ML IV SCH ×2 (11:06→21:20)
[2019-09-26] MEDS: POTASSIUM CHLORIDE 20 MEQ TABCR PO SCH ×3 (11:06→21:18)
--- NOTE | 2019-09-26 11:30 | Surgery Progress Note ---
Date of Service September 26, 2019 Assessment & Plan (1) Incarcerated right inguinal hernia: POD#4 release of small bowel obstruction and repair of right inguinal hernia patient believes he is improving, says diarrhea and surgical pain better each day surgical incisions c/d/i, no signs of infection continues with GI issues and electrolyte abnormalities.. K and Phos being repleted appreciate medicine acceptance of patient with GI consultation okay for dispo to facility from our standpoint once medically optimized will write for follow up with Dr. Bryant within 1-2 weeks of discharge Subjective Patient says he is trying to keep eating more. Denies nausea. Still with diarrhea, but feels as though it is improving. Physical Exam Physical Exam: awake/alert Gastrointestinal (Abdomen): Inspection/Auscultation: + abdominal surgical incision (c/d/i with dermabond) Percussion/Palpation: + abdomen tender (some L sided ttp zeeshan-incisions) and abdomen soft Results & Data Vital Signs (Past 12 Hours) Vital Signs Temp Pulse Pulse Resp BP BP Pulse Ox 09/26/19 07:54 36.8 C 67 20 93/64 L 97 09/26/19 03:41 36.6 C 75 16 94/65 L 95 09/26/19 00:32 92 H 09/25/19 23:43 36.8 C 85 18 111/70 95 PG Care Time/CCT Total # of Minutes Spent Total Time Spent with Patient: Total time spent is greater than 50% in coordination of care (as documented) at patient's floor/unit and/or counseling patient: Coding Level of Care Code None Diagnoses Incarcerated right inguinal hernia K40.30
[2019-09-26] MEDS ORDERED: LOPERAMIDE HCL 2 MG CAP PO STA (14:57)
[2019-09-26] MEDS: ACETAMINOPHEN 325 MG TAB PO PRN (15:34)
[2019-09-26] MEDS: POTASSIUM CHLORIDE / WTR 10 MEQ/100 ML PLCT IV SCH ×3 (15:35→17:42)
[2019-09-26 20:39] LABS: Magnesium 1.6 mg/dl (1.8-2.4); Potassium 3.6 mmol/L (3.5-5.1)
--- NOTE | 2019-09-26 20:40 | Hospitalist Progress Note ---
Date of Service September 26, 2019 Assessment & Plan (1) SBO (small bowel obstruction): POD #5 s/p reduction of small bowel obstruction, laparoscopic Inguinal Hernia Repair with Mesh by Dr Bryant diet - gluten free no surgical issues at this time (2) Incarcerated right inguinal hernia: s/p laparoscopic repair of hernia and reduction of SBO POD #5 (3) Celiac disease: cont gluten free diet EGD at [facility] by Dr Shields c/w celiac disease which suggests noncompliance with gluten free diet at care home TTG markedly elevated heavily contributing to failure to thrive and diarrhea w/ weight loss will need to speak with care home medical stenographer upon return to [facility] about patient needing strict adherence to Gluten Free diet (4) Lymphocytic colitis: path from 09/16 colonoscopy c/w such [facility] GI consult appreciated started budesonide 9mg daily which is ok with gen surg c diff neg stool cx pending but thus far neg started loperamide scheduled in light of numerous stools and electrolyte wasting -- increase to TID dosing (5) Protein malnutrition: severe 2nd lymphocytic colitis, celiac, etc s/p colonoscopy 09/16 - colon bx's with lymphocytic colitis needs better compliance with gluten free diet cont budesonide cont loperamide I believe refractory low k/mag/phos could be refeeding syndrome (6) B12 deficiency: folate/b12 and Fe studies acceptable given macrocytosis, however, will place on empiric folate IV also supplement thiamine and MVI (7) Hypomagnesemia: severe 2nd GI wasting cannot rule out refeeding syndrome replace IV/PO repeat mag level tonight and in am (8) Hypokalemia: replace IV/PO again today repeat BMP am and K level tonight replete low mag 2nd GI wasting cannot rule out refeeding syndrome (9) Hypophosphatemia: replete with IV phos repeat level am refeeding syndrome?? total calcium is low but corrected for low albumin it is normal check 25-OH vit D in am (10) Hypothyroid: TSH mildly high increased synthroid to 37.5mcg daily repeat TSH 6 weeks (11) Anemia: macrocytic cause?? b12/folate wnl other nutritional deficiency?? (copper, etc) MVI folate supplementation (12) GERD (gastroesophageal reflux disease): stop PPI could be making mag def worse (13) Chronic deep vein thrombosis (DVT) of right lower extremity: previously on coumadin; no longer on such (14) BPH (benign prostatic hyperplasia): cont flomax (15) PAF (paroxysmal atrial fibrillation): likely 2nd to severe hypomagnesemia and hypokalemia CHADs score is low echo with normal atria and valves replete low K and low mag keep on tele no anticoagulation (16) DVT prophylaxis: heparin SC BID must remain hospitalized until electrolytes are normal for 24 hours Admission and Anticipated Discharge Date Admission Date: September 22, 2019 Subjective tele stable overnight - no PAF. no new complaints. still having liquid stools - 4 since 5am. they are small in quantity. mild lower abdominal pain. denies nausea tolerating diet. Review of Systems Constitutional: no fever and no chills Respiratory: no cough, no dyspnea and no dyspnea on exertion Cardiovascular: no chest pain Gastrointestinal: no nausea and no vomiting Physical Exam Constitutional: + thin, + cachectic and + frail appearing; + not well developed, + not well nourished, no acute distress and no altered mental status ENMT: external ear and nose normal, oropharynx normal Respiratory: normal respiratory effort, lungs clear to auscultation Auscultation: + diminished lung sounds (bases) Cardiovascular: Rate/Rhythm: regular rate and regular rhythm Heart Sounds: normal S1 and normal S2; no murmur Vessels: posterior tibial pulses present and dorsalis pedis pulses present; no JVD Extremities: no edema Gastrointestinal (Abdomen): Inspection/Auscultation: + abdomen distended (Mild) and normal bowel sounds Percussion/Palpation: + abdomen tender (LLQ); no guarding and no hepatosplenomegaly Skin: + pallor Psychiatric: Orientation: alert and oriented x 3 Results & Data Results & Data ([facility]) Vital Signs (Past 12 Hours) Vital Signs Temp Pulse Pulse Resp BP BP Pulse Ox 09/26/19 20:22 36.4 C L 84 16 106/68 97 09/26/19 15:34 36.4 C L 89 24 103/66 94 09/26/19 15:00 90 09/26/19 11:58 36.8 C 80 18 97/69 L 93 Laboratory Results Laboratory Results - last 24 hr 09/24/19 09/26/19 09/26/19 14:06 06:52 20:13 Sodium 144 Potassium 2.6 L D 3.6 D Chloride 119 H Carbon Dioxide 20 L Anion Gap 5.0 BUN 3 L Creatinine 0.44 L Est Cr Clr Drug Dosing 107.1 Est GFR ( Amer) 143.9 Est GFR (Non-Af Amer) 124.1 BUN/Creatinine Ratio 6.0 L Glucose 76 Calcium 7.1 L Phosphorus 1.3 L* Magnesium 1.7 L 1.6 L Tiss Transglutamin IgA >100 H PG Care Time/CCT Total # of Minutes Spent Total Time Spent with Patient: Total time spent is greater than 50% in coordination of care (as documented) at patient's floor/unit and/or counseling patient: Coding Level of Care Code 68598 Subseq Hosp Care Lvl 3 Diagnoses SBO (small bowel obstruction) K56.609 Incarcerated right inguinal hernia K40.30 Celiac disease K90.0 Lymphocytic colitis K52.832 Protein malnutrition E46 B12 deficiency E53.8 Hypomagnesemia E83.42 Hypokalemia E87.6 Hypophosphatemia E83.39 Hypothyroid E03.9 Anemia D64.9 Anemia type: other cause GERD (gastroesophageal reflux disease) K21.9 Chronic deep vein thrombosis (DVT) of right lower extremity I82.501 BPH (benign prostatic hyperplasia) N40.0 PAF (paroxysmal atrial fibrillation) I48.0 DVT prophylaxis Z29.9 (1) Anemia Anemia type: other cause
[2019-09-26] MEDS: MIRTAZAPINE SOLTAB 15 MG PO SCH (21:18)
[2019-09-26] MEDS: MAGNESIUM OXIDE 400 MG TAB PO SCH (21:18)
[2019-09-26] MEDS: TAMSULOSIN HCL 0.4 MG CAP PO SCH (21:19)
[2019-09-26] MEDS: bisacodyL 5 MG TABEC PO SCH (21:22)
[2019-09-27] MEDS: LEVOTHYROXINE SODIUM 75 MCG TABLET PO SCH (05:34)
[2019-09-27] MEDS: OXYCODONE HCL IR 5 MG TAB (IMMEDIATE RELEASE) PO PRN ×2 (05:34→20:54)
[2019-09-27 06:33] LABS: BUN Creatinine Ratio 4.3 (10-20); Calcium 7.2 mg/dl (8.5-10.1); Creatinine Clr Calc Pharmacy 100.2 ml/min; Est GFR (Non-African American) 120.8; Magnesium 1.7 mg/dl (1.8-2.4); Phosphorus 1.6 mg/dl (2.5-4.9); Potassium 3.7 mmol/L (3.5-5.1)
[2019-09-27] MEDS ORDERED: POTASSIUM PHOS 3 MMOL/1 ML INFUSION IV STA (07:30)
[2019-09-27] MEDS ORDERED: POTASSIUM PHOSPHATE 30 MMOL in SODIUM CHLORIDE 0.9% 500 ML IV ONE (08:00)
[2019-09-27] MEDS: MAGNESIUM SULFATE / D5W 1 GM/100 ML BAG IV SCH ×2 (08:17→10:12)
[2019-09-27] MEDS: THIAMINE HCL 200 MG in SODIUM CHLORIDE 0.9% 50 ML IV SCH ×2 (08:18→20:43)
[2019-09-27] MEDS: HEPARIN SOD 5,000 UNIT/0.5 ML VIAL SQ SCH ×3 (08:21→20:59)
[2019-09-27] MEDS: FOLIC ACID 1 MG in SYRINGE 9.8 ML IV SCH (08:21)
[2019-09-27] MEDS: LOPERAMIDE HCL 2 MG CAP PO SCH ×3 (08:22→20:42)
[2019-09-27] MEDS: ASPIRIN 81 MG ECTAB PO SCH (08:23)
[2019-09-27] MEDS: PANCREAZE (LIPASE 10,500U) CAP PO SCH ×3 (08:23→16:50)
[2019-09-27] MEDS: POTASSIUM CHLORIDE 20 MEQ TABCR PO SCH ×3 (08:23→20:41)
[2019-09-27] MEDS: CALCIUM 600MG + VIT D 400 IU TAB PO SCH ×2 (08:24→20:42)
[2019-09-27] MEDS: BUDESONIDE EC 3 MG CAP PO SCH (08:25)
[2019-09-27] MEDS: PANTOprazole 40 MG TAB PO SCH (08:25)
[2019-09-27] MEDS: CHOLECALCIFEROL (VITAMIN D) 400 UNITS TABLET PO SCH (08:25)
--- NOTE | 2019-09-27 09:12 | Surgery Progress Note ---
Date of Service September 27, 2019 Assessment & Plan (1) Incarcerated right inguinal hernia: POD#5 repair of right inguinal hernia Patient tolerating gluten free diet without N/V Having + diarrhea, patient says it's improving Surgical incisions c/d/i Potassium and Phos improved today Dispo to correctional facility when okay by medicine and GI Subjective Patient seen resting in bed. Said he is eating okay, had some eggs and cheerio's for breakfast. Denies nausea. Diarrhea still present, but improving per patient. Had some lower abdominal pain this AM, received pain medication with relief. Physical Exam Physical Exam: awake/alert Gastrointestinal (Abdomen): Inspection/Auscultation: + abdomen distended (mild) and + abdominal surgical incision (c/d/i no sign of infection) Results & Data Vital Signs (Past 12 Hours) Vital Signs Temp Pulse Pulse Resp BP BP Pulse Ox 09/27/19 07:55 36.6 C 89 20 102/67 98 09/27/19 04:06 37 C 72 16 119/80 92 09/26/19 23:23 36.8 C 86 16 103/65 95 09/26/19 22:20 90 PG Care Time/CCT Total # of Minutes Spent Total Time Spent with Patient: Total time spent is greater than 50% in coordination of care (as documented) at patient's floor/unit and/or counseling patient: Coding Level of Care Code None Diagnoses Incarcerated right inguinal hernia K40.30
--- NOTE | 2019-09-27 20:36 | Hospitalist Progress Note ---
Date of Service September 27, 2019 Assessment & Plan (1) SBO (small bowel obstruction): POD #6 s/p reduction of small bowel obstruction, laparoscopic Inguinal Hernia Repair with Mesh by Dr Bryant tolerating gluten free diet no surgical issues at this time (2) Incarcerated right inguinal hernia: s/p laparoscopic repair of hernia and reduction of SBO POD #6 (3) Celiac disease: cont gluten free diet EGD at [facility] by Dr Shields (before this hospitalization) c/w celiac disease which suggests noncompliance with gluten free diet at half-way TTG markedly elevated also c/w consumption of gluten free products this is heavily contributing to failure to thrive and diarrhea w/ weight loss will need to speak with half-way medical biller coder upon return to [facility] about patient needing strict adherence to Gluten Free diet (4) Lymphocytic colitis: path from 09/16 colonoscopy c/w such [facility] GI consult appreciated started budesonide 9mg daily which is ok with gen surg c diff neg stool cx neg cont loperamide TID dosing to slow stooling and help with forming his stools (5) Refeeding syndrome: Likely cause of severely low and refractory K, Mag, and phos. Finally these are improving after days of copious IV replacement. Recheck all lytes in am. (6) Protein malnutrition: severe 2nd lymphocytic colitis, celiac, etc s/p colonoscopy 09/16 - colon bx's with lymphocytic colitis needs better compliance with gluten free diet cont budesonide cont loperamide I believe refractory low k/mag/phos could be refeeding syndrome see above (7) B12 deficiency: folate/b12 and Fe studies acceptable given macrocytosis, however, will place on empiric folate IV also supplement thiamine and MVI (8) Hypomagnesemia: severe 2nd GI wasting cannot rule out refeeding syndrome replace IV again repeat level AM (9) Hypokalemia: finally normalized 2nd GI wasting cannot rule out refeeding syndrome (10) Hypophosphatemia: replete with IV phos 30mmol again today repeat level am refeeding syndrome/malnutrition likely to blame vit D def also contributing total calcium is low but corrected for low albumin it is normal (11) Hypothyroid: TSH mildly high increased synthroid to 37.5mcg daily repeat TSH 6 weeks (12) Anemia: macrocytic cause?? b12/folate wnl other nutritional deficiency?? (copper, etc) MVI folate supplementation (13) GERD (gastroesophageal reflux disease): stop PPI could be making mag def worse use H2 bharathi in miguelina (14) Chronic deep vein thrombosis (DVT) of right lower extremity: previously on coumadin; no longer on such (15) BPH (benign prostatic hyperplasia): cont flomax (16) PAF (paroxysmal atrial fibrillation): likely 2nd to severe hypomagnesemia and hypokalemia -- only 1 episode of PAF this admission CHADs score is zero thus no anticoagulation echo with normal atria and valves replete low K and low mag keep on tele (17) Vitamin D deficiency: ergocalciferol 50,000 units weekly x 8 weeks (18) DVT prophylaxis: heparin SC BID observe until tomorrow AM if K/mag/phos are reasonable tomorrow then d/c back to half-way Admission and Anticipated Discharge Date Admission Date: September 22, 2019 Subjective Patient with lower abdominal pain (b/l lower quadrants). 3 stools since waking this am - not as liquidy, starting to form, not voluminous. No nausea/emesis. tolerating diet. no dyspnea. tele stable overnight w/o a.fib. Review of Systems Constitutional: no fever Respiratory: + cough; no dyspnea and no dyspnea on exertion Cardiovascular: no chest pain Physical Exam Constitutional: + thin, + cachectic and + frail appearing; + not well developed, + not well nourished, no acute distress and no altered mental status ENMT: external ear and nose normal, oropharynx normal Respiratory: normal respiratory effort, lungs clear to auscultation (airation much better today ) Cardiovascular: Rate/Rhythm: regular rate and regular rhythm Heart Sounds: normal S1 and normal S2; no murmur Vessels: posterior tibial pulses present and dorsalis pedis pulses present; no JVD Extremities: no edema Gastrointestinal (Abdomen): Inspection/Auscultation: + abdomen distended (unchanged from prior exams) and normal bowel sounds Percussion/Palpation: + abdomen tender (LLQ/RLQ - mild ); no guarding and no hepatosplenomegaly Skin: + pallor Psychiatric: Orientation: alert and oriented x 3 Results & Data Results & Data ([facility]) Vital Signs (Past 12 Hours) Vital Signs Temp Pulse Pulse Resp BP Pulse Ox 09/27/19 20:14 36.8 C 91 H 18 106/75 97 07/31/20 15:28 36.9 C 88 22 110/72 97 09/27/19 14:20 87 09/27/19 12:47 36.4 C L 102 H 20 108/74 98 Laboratory Results Laboratory Results - last 24 hr 09/26/19 09/27/19 09/27/19 20:13 05:45 05:45 Sodium 143 Potassium 3.6 D 3.7 Chloride 121 H Carbon Dioxide 17 L Anion Gap 5.0 BUN 2 L Creatinine 0.47 L Est Cr Clr Drug Dosing 100.2 Est GFR ( Amer) 140.0 Est GFR (Non-Af Amer) 120.8 BUN/Creatinine Ratio 4.3 L Glucose 81 Calcium 7.2 L Phosphorus 1.6 L Magnesium 1.6 L 1.7 L 25-OH Vitamin D Total 20.6 L PG Care Time/CCT Total # of Minutes Spent Total Time Spent with Patient: Total time spent is greater than 50% in coordination of care (as documented) at patient's floor/unit and/or counseling patient: Coding Level of Care Code 67362 Subseq Hosp Care Lvl 2 Diagnoses SBO (small bowel obstruction) K56.609 Incarcerated right inguinal hernia K40.30 Celiac disease K90.0 Lymphocytic colitis K52.832 Refeeding syndrome E87.8 Protein malnutrition E46 B12 deficiency E53.8 Hypomagnesemia E83.42 Hypokalemia E87.6 Hypophosphatemia E83.39 Hypothyroid E03.9 Anemia D64.9 Anemia type: other cause GERD (gastroesophageal reflux disease) K21.9 Chronic deep vein thrombosis (DVT) of right lower extremity I82.501 BPH (benign prostatic hyperplasia) N40.0 PAF (paroxysmal atrial fibrillation) I48.0 Vitamin D deficiency E55.9 DVT prophylaxis Z29.9 (1) Anemia Anemia type: other cause
[2019-09-27] MEDS: MIRTAZAPINE SOLTAB 15 MG PO SCH (20:40)
[2019-09-27] MEDS: MAGNESIUM OXIDE 400 MG TAB PO SCH (20:41)
[2019-09-27] MEDS: TAMSULOSIN HCL 0.4 MG CAP PO SCH (20:41)
[2019-09-27] MEDS: bisacodyL 5 MG TABEC PO SCH (20:44)
[2019-09-27] MEDS: FAMOTIDINE 20 MG TAB PO SCH (21:08)
[2019-09-27] MEDS: POT PHOSPHATE MONOBASIC W/ SOD TAB PO SCH (21:08)
[2019-09-27] MEDS: ERGOCALCIFEROL 50,000 UNITS CAP PO ONE ×2 (21:09→21:48)
[2019-09-28] MEDS: LEVOTHYROXINE SODIUM 75 MCG TABLET PO SCH (06:00)
[2019-09-28 06:09] LABS: Blood Urea Nitrogen < 1 mg/dl (7-18); Calcium 7.2 mg/dl (8.5-10.1); Carbon Dioxide 17 mmol/L (21-32); Chloride 116 mmol/L (98-107); Creatinine Clr Calc Pharmacy 111.1 ml/min; Est GFR (African American) 141.3; Est GFR (Non-African American) 121.9; Glucose 89 mg/dl (70-99); Magnesium 1.4 mg/dl (1.8-2.4); Potassium 3.7 mmol/L (3.5-5.1); Sodium 140 mmol/L (136-145)
[2019-09-28 06:18] LABS: Phosphorus 2.5 mg/dl (2.5-4.9)
[2019-09-28] MEDS: HEPARIN SOD 5,000 UNIT/0.5 ML VIAL SQ SCH (08:37)
[2019-09-28] MEDS: FOLIC ACID 1 MG in SYRINGE 9.8 ML IV SCH (08:38)
[2019-09-28] MEDS: BUDESONIDE EC 3 MG CAP PO SCH (08:38)
[2019-09-28] MEDS: LOPERAMIDE HCL 2 MG CAP PO SCH ×2 (08:38→14:20)
[2019-09-28] MEDS: CHOLECALCIFEROL (VITAMIN D) 400 UNITS TABLET PO SCH (08:39)
[2019-09-28] MEDS: PANCREAZE (LIPASE 10,500U) CAP PO SCH ×3 (08:39→16:33)
[2019-09-28] MEDS: ASPIRIN 81 MG ECTAB PO SCH (08:39)
[2019-09-28] MEDS: POTASSIUM CHLORIDE 20 MEQ TABCR PO SCH ×2 (08:40→14:20)
[2019-09-28] MEDS: FAMOTIDINE 20 MG TAB PO SCH (08:51)
[2019-09-28] MEDS: POT PHOSPHATE MONOBASIC W/ SOD TAB PO SCH ×3 (08:51→16:34)
[2019-09-28] MEDS: THIAMINE HCL 200 MG in SODIUM CHLORIDE 0.9% 50 ML IV SCH (08:56)
[2019-09-28] MEDS: MAGNESIUM SULFATE / D5W 1 GM/100 ML BAG IV SCH ×3 (09:33→14:17)
--- NOTE | 2019-09-28 10:46 | Surgery Progress Note ---
Date of Service September 28, 2019 Assessment & Plan (1) Inguinal hernia: Postoperative day #6 status post repair of right inguinal hernia with reduction of small bowel and small bowel obstruction Doing well from surgical standpoint Incisions are healing Tolerating regular diet Continuing diarrhea is under investigation Subjective Postoperative day #5 status post repair right inguinal hernia Had some mild pain in the right inguinal area Tolerating regular diet Continues to have diarrhea which is under investigation Denies nausea and vomiting Physical Exam Gastrointestinal (Abdomen): Inspection/Auscultation: abdomen not distended Percussion/Palpation: + abdomen tender (Small bulge in the right inguinal area Mildly tender) and abdomen soft Results & Data Vital Signs (Past 12 Hours) Vital Signs Temp Pulse Pulse Resp BP Pulse Ox 09/28/19 07:29 37.3 C 101 H 22 107/66 95 09/28/19 04:22 37.2 C 95 H 16 116/75 96 09/28/19 00:00 106 H 09/27/19 23:14 36.7 C 91 H 16 100/67 98 Laboratory Results 09/28/19 Range/Units 05:30 Sodium 140 (136-145) mmol/L Potassium 3.7 (3.5-5.1) mmol/L Chloride 116 H (98-107) mmol/L Carbon Dioxide 17 L (21-32) mmol/L Anion Gap 7.0 (3-11) BUN < 1 L (7-18) mg/dl Creatinine 0.46 L (0.6-1.4) mg/dl Est Cr Clr Drug Dosing 111.1 ml/min Est GFR ( Amer) 141.3 Est GFR (Non-Af Amer) 121.9 BUN/Creatinine Ratio TNP Glucose 89 (70-99) mg/dl Calcium 7.2 L (8.5-10.1) mg/dl Phosphorus 2.5 (2.5-4.9) mg/dl Magnesium 1.4 L (1.8-2.4) mg/dl (1) Inguinal hernia Laterality: unilateral Obstruction and gangrene presence: with obstruction but without gangrene Recurrence: not specified as recurrent Qualified Code(s): K40.30 - Unilateral inguinal hernia, with obstruction, without gangrene, not specified as recurrent
[2019-09-28] MEDS: CALCIUM 600MG + VIT D 400 IU TAB PO SCH (11:53)
--- NOTE | 2019-09-28 13:09 | Discharge Summary ---
Date of Service date of admission - September 22, 2019 date of discharge - September 28, 2019 Admission HPI Per Admitting Provider 58-year-old white male inmate from a local correctional facility. Began this morning with some abdominal pain and coffee-ground emesis. He was brought to the emergency room and work-up has revealed an incarcerated right inguinal hernia with a small bowel obstruction associated with it. Currently the patient says he only has pain when he tries to move or stand up. He has not had emesis since this morning. He has lost considerable weight over the last year. He used to weigh around 119 pounds and he now weighs around 90. He does not have a good explanation for this. Principal Diagnosis incarcerated right inguinal hernia with resulting SBO - s/p reduction of small bowel obstruction and laparoscopic inguinal hernia repair with mesh Discharge Exam Constitutional + thin, + cachectic and + frail appearing; + not well developed, + not well no urished, no acute distress and no altered mental status ENMT external ear and nose normal, oropharynx normal Respiratory normal respiratory effort, lungs clear to auscultation (airation much better today ) Cardiovascular Rate/Rhythm: regular rate and regular rhythm Heart Sounds: normal S1 and normal S2; no murmur Vessels: posterior tibial pulses present and dorsalis pedis pulses present; no JVD Extremities: no edema Gastrointestinal (Abdomen) Inspection/Auscultation: + abdomen distended (unchanged from prior exams) and normal bowel sounds Percussion/Palpation: + abdomen tender (Incisional (mild)); no guarding and no hepatosplenomegaly Skin + pallor abdominal wall incisions clean/dry Psychiatric Orientation: alert and oriented x 3 Discharge Data Allergies Allergy/AdvReac Type Severity Reaction Status Date / Time gluten Allergy Unknown GI SYMPTOMS Verified 09/22/19 11:41 Penicillins Allergy Unknown unknown Unverified 09/22/19 11:41 lactose AdvReac Gastrointestinal Unverified 09/22/19 11:41 Upset Consultations 1. general surgery - Marcial Bryant DO 2. gastroenterology - [facility] GI Procedures Performed Operation Date: 09/22/19 18:30 Actual Procedures p Laparoscopic Inguinal Hernia Repair with Mesh(Right) - Marcial Bryant DO Ordered Studies 09/22/19 10:49 CT abd pelvis IV contrast - IMPRESSION: 1. Findings are consistent with a high-grade small bowel obstruction, likely related to an incarcerated loop of small bowel within a right inguinal hernia. 2. There is trace abdominopelvic ascites. No intraperitoneal free air is seen. 3. Findings suggest a nonspecific proctitis. Clinical correlation will be required. 4. There is a small to moderate hiatal hernia with wall thickening noted in the distal esophagus. Correlate for evidence of esophagitis. This can be further assessed with endoscopy if clinically warranted. 5. There are numerous enlarged mesenteric lymph nodes which may be on a reactive basis. Clinical correlation will be required. 6. Cachexia. 7. Question polyposis of the right colon. This is not well evaluated by CT, and follow-up with a nonemergent colonoscopy is recommended for further assessment. Hospital Course (1) SBO (small bowel obstruction): s/p reduction of small bowel obstruction with laparoscopic Inguinal Hernia Repair with Mesh by Dr Bryant - [facility] General Surgery. Post-op was restarted on clear liquid diet and advanced to a gluten free diet. Incisions clean/dry/intact at discharge. Pain controlled. Moving bowels following the surgery; in fact having copious diarrhea -- see below. f/u Dr Bryant 1-2 weeks in the surgery clinic for recheck. (2) Incarcerated right inguinal hernia: s/p laparoscopic repair of hernia and reduction of SBO. (3) Celiac disease: EGD at [facility] by Dr Jeannette Shields (before this hospitalization) c/w celiac disease which suggests noncompliance with gluten free diet at [facility]. TTG (tissue trans-glutaminase) markedly elevated also c/w consumption of foods containing gluten. Patient openly admitted to eating copious amounts of regular food at the [facility]. He was counseled that this is heavily contributing to failure to thrive and diarrhea w/ weight loss. Further counseled that his diarrhea will continue if he continues to be noncompliant. Spoke with [facility] medical clerk upon return to [facility] who stated they have been trying to help patient be more compliant with gluten-free diet but he has consistently not complied. (4) Lymphocytic colitis: pathology from 09/17/19 outpatient colonoscopy c/w such. lymphocytic colitis is heavily associated with celiac disease, especially if celiac disease is uncontrolled. seen by [facility] GI during this hospital stay. recommended BUDESONIDE as follows - * 9mg/day x 1 month then - * 6mg/day x 1 month then - * 3mg/day x 1 month c diff neg stool cx neg cont loperamide TID dosing to slow stooling and help with forming his stools needs to comply with gluten-free diet f/u [facility] within 1 week of discharge (5) Refeeding syndrome: Likely cause of severely low and refractory K, Mag, and phos during the hospitalization. Required copious IV and Oral replacement. K and Phos wnl at discharge. Mag level modestly low at discharge. K and Mag to be supplemented at discharge. Care Home medical clerk - please recheck all electrolytes within 5 days of discharge to ensure stability. (6) Protein malnutrition: severe 2nd lymphocytic colitis, celiac, etc s/p colonoscopy 09/16 - colon bx's with lymphocytic colitis needs better compliance with gluten free diet cont budesonide cont loperamide I believe refractory low k/mag/phos could be refeeding syndrome see above (7) B12 deficiency: folate/b12 and Fe studies were acceptable levels when checked during the stay. given macrocytosis, however, placed patient on empiric folate. also supplemented thiamine and MVI. recommend thiamine x 1 month. MVI indefinitely. folate indefinitely. B12 shots monthly indefinitely. (8) Hypomagnesemia: severe 2nd GI wasting cannot rule out refeeding syndrome replaced IV & PO while here recommend mag oxide 400mg BID upon discharge probably needs mag supplementation all the time given chronic diarrhea (9) Hypokalemia: severe, with levels in low 2's. required copious IV & PO replacement. 2nd GI wasting. cannot rule out refeeding syndrome. recommend potassium supplementation 20meq BID. may need this indefinitely given chronic diarrhea. (10) Hypophosphatemia: severe. repleted with IV phosphorus several times with ultimate normalization. refeeding syndrome/malnutrition likely to blame. vit D def also contributing. total calcium is low but corrected for low albumin it is normal. (11) Hypothyroid: TSH mildly high increased synthroid to 37.5mcg daily repeat TSH 6 weeks (12) Anemia: macrocytic cause?? b12/folate wnl other nutritional deficiency?? (copper, etc) MVI folate supplementation (13) GERD (gastroesophageal reflux disease): stop PPI could be making magnesium deficiency worse use H2 bharathi in miguelina (famotidine 20mg BID) (14) Chronic deep vein thrombosis (DVT) of right lower extremity: previously on coumadin; no longer on such (15) BPH (benign prostatic hyperplasia): cont flomax (16) PAF (paroxysmal atrial fibrillation): Had 30-minute episode of PAF several days post-op from his hernia surgery. Spontaneously converted back to NSR. This was in the midst of severely low potassium and severely low magnesium. Likely 2nd to severe hypomagnesemia and hypokalemia -- only 1 episode of PAF the entire stay. CHADs score is zero thus no anticoagulation. echo with normal atria and valves. Was in NSR in the days leading up to discharge. (17) Vitamin D deficiency: ergocalciferol 50,000 units weekly x 8 weeks will need 25-OH vitamin D level rechecked at conclusion of ergocalciferol course Total Time Total Time Spent Total Time Spent (In Minutes): 60 Total Time Includes: Examination of the Patient, Discharge Planning, Medication Reconciliation and Communication With Other Providers Discharge Plan Discharge Items Patient Disposition: Correctional Facility Reason For Visit: HERNIA Discharge Diagnosis: 1. incarcerated inguinal hernia s/p repair 2. severe diarrhea - due to uncontrolled celiac disease (patient eats regular food daily at [facility]) and lymphocytic colitis 3. low potassium, low magnesium, and low phosphorus - from diarrhea and possibly refeeding syndrome - MUCH improved Condition on Discharge: Fair Activity: As commented below Lifting: No more than 10 pounds Bathing Comment: may shower. no tub soaks Exercise/Sports: Wait until after follow-up appointment Non-emergency contact: Primary Care Provider, Surgeon and Nut Sheller Call non-emergency contact if: you have any medication questions, your symptoms worsen, your pain is worsening, your temperature is above 101, your wound has increased redness, your wound has increased drainage and your wound pain has increased Follow-up/Referrals: Marcial Bryant DO [Surgeon] - (Please call to schedule follow up in clinic within 1-2 weeks) Brenton Alicia [Physician] - (see Dr Alicia or Veronica Fitzpatrick NP - [facility] - within 1 week) Mike CHEUNG [Primary Care Provider] - Diet: Gluten Free Addtl Attending Provider Instructions: 1. Patient MUST adhere to GLUTEN-FREE diet. He openly admits to eating regular trays every day. He has been counseled that his diarrhea will continue indefinitely if he consumes gluten-containing foods. 2. Check BMP and Magnesium on 09/30/2019. Results to medical clerk. 3. Check TSH in 6 weeks. Results to medical clerk. 4. If stools become firm/hard or he becomes constipated then make the loperamide NEEDED rather than scheduled. 5. follow-up -- * [facility] within 1 week * General Surgery within 1-2 weeks for recheck of incisions, etc * medical clerk within 24 hours at [facility] 6. recheck 25-OH vitamin D level in 2 months Pending Studies at Discharge: No Stand-Alone Forms: My [employer], Smoking Cessation Skilled Items Patient informed of condition?: Yes Discharge Level of Care: Other Communicable Disease: No Discharge Prognosis: Improving Lines: None Urinary Catheter: No Medications and DC Order Prescriptions: New loperamide 2 mg Capsule 2 mg PO TID Qty: 30 RF: 0 levothyroxine [Synthroid] 75 mcg Tablet 37.5 mcg PO DAILYBB Qty: 30 RF: 2 potassium chloride [Klor-Con M20] 20 mEq Tablet,Er Particles/Crystals 20 meq PO BID Qty: 60 RF: 0 magnesium oxide 400 mg (241.3 mg magnesium) Tablet 400 mg PO BID Qty: 60 RF: 0 lactase 3,000 unit Tablet 3,000 unit PO AC PRN (Reason: lactose intolerance) Qty: 30 RF: 0 thiamine HCl (vitamin B1) 100 mg tablet 200 mg PO BID 30 Days Qty: 120 RF: 0 budesonide [Entocort EC] 3 mg capsule,delayed,extend.release 3 mg PO DIRECTED Qty: 120 RF: 1 famotidine 20 mg Tablet 20 mg PO BID Qty: 60 RF: 5 ergocalciferol (vitamin D2) 1,250 mcg (50,000 unit) capsule 50,000 units PO .weekly 56 Days Qty: 8 RF: 0 Continued DermaPhor Ointment 1 applic TOPICAL BID PRN (Reason: Itching) RF: 0 acetaminophen [Tylenol Extra Strength] 500 mg Tablet 1,000 mg PO TID PRN (Reason: Pain) RF: 0 calcium carbonate [Calcium 600] 600 mg calcium (1,500 mg) Tablet 600 mg PO BID RF: 0 tamsulosin 0.4 mg Capsule 0.4 mg PO HS RF: 0 cyanocobalamin (vitamin B-12) 1,000 mcg/mL Solution 1,000 mcg SUBCUT MONTHLY RF: 0 ferrous sulfate 325 mg (65 mg iron) Tablet 325 mg PO HS RF: 0 aspirin [Aspirin Childrens] 81 mg Tablet,Chewable 81 mg PO DAILY RF: 0 folic acid 1 mg Tablet 1 mg PO HS RF: 0 mirtazapine 15 mg Tablet,Disintegrating 15 mg PO HS RF: 0 Ensure Liquid 1 ea PO TID RF: 0 Creon 24,000-76,000 -120,000 unit Capsule,Delayed Release(Dr/Ec) 1 cap PO TID RF: 0 Discontinued levothyroxine 25 mcg Tablet 25 mcg PO HS RF: 0 pantoprazole 40 mg Tablet,Delayed Release (Dr/Ec) 40 mg PO DAILY RF: 0 bisacodyl 5 mg Tablet,Delayed Release (Dr/Ec) 5 mg PO HS RF: 0 cholecalciferol (vitamin D3) [Vitamin D3] 125 mcg (5,000 unit) Tablet 250 mcg PO DAILY RF: 0 potassium chloride 20 mEq Tablet Extended Release 20 meq PO HS RF: 0 magnesium oxide 400 mg magnesium Tablet 400 mg PO HS RF: 0 Discharge Orders: Discharge Order (Routine); Ordered 09/28/19 Ordered By: Leo Sun Admission Data Admit Date/Time: 09/22/19 21:23 Attending Provider: Leo Sun Admit Provider: Marcial Bryant Primary Care Provider: Mike CHEUNG Other Providers: Marcial Bryant ; Jonah Ovalle ; Ivett Moreno ; Leo Sun ; Yuval Mo ; Carli Cuevas ; Amari Ferguson ; Arnold Leroy ; Kiran Fitzpatrick ; Gabriella Chandra ; Jazmín Le ; Dione Key ; Anson Nieves ; Kori Hutchinson ; Haydee Perez ; Chris Suresh ; Eliazar Moreira ; Km Velazquez ; Estelita Sebastian ; Vicente Marcial ; Chi Al ; Leo Noyola ; Brian Aldrich ; Jeremiah Emanuel ; Naomi Umanzor ; Rachel Umanzor ; Daquan Aguilera ; Rain Ham ; Duarte Fernandez ; Adalberto Parish ; Jing Henao ; Rufus Lacey ; Brenton Alicia Other Interventions: Discharge Summary Assessment (RN) Last Done: 09/28/19 15:13 DC Date/Time DO NOT enter until pt leaves facility: 09/28/19 17:55 Coding Level of Care Code D/C Day Management >30 mins Diagnoses SBO (small bowel obstruction) K56.609 Incarcerated right inguinal hernia K40.30 Celiac disease K90.0 Lymphocytic colitis K52.832 Refeeding syndrome E87.8 Protein malnutrition E46 B12 deficiency E53.8 Hypomagnesemia E83.42 Hypokalemia E87.6 Hypophosphatemia E83.39 Hypothyroid E03.9 Anemia D64.9 Anemia type: other cause GERD (gastroesophageal reflux disease) K21.9 Chronic deep vein thrombosis (DVT) of right lower extremity I82.501 BPH (benign prostatic hyperplasia) N40.0 PAF (paroxysmal atrial fibrillation) I48.0 Vitamin D deficiency E55.9
== END 2019-09-28 17:55 | DRG 329 ==
LOC: ED 10:08 → OR 19:50 → 2E 21:22 → INTOOBSV 21:22 → SUATTDRO 21:23

== ENCOUNTER 2020-03-11 13:37 | Inpatient (IN) ==
[2020-03-11] MEDS ORDERED: SODIUM CHLORIDE 0.9% 1000ML 1,000 ML IV ONE (14:35)
[2020-03-11] MEDS ORDERED: CALCIUM GLUCONATE 10% 1,000 MG in SODIUM CHLORIDE 0.9% 50 ML IV ONE (14:37)
[2020-03-11] MEDS ORDERED: DEXTROSE 50% 50 ML SYRINGE IV STA (14:37)
--- NOTE | 2020-03-11 14:41 | Emergency Department Note ---
History of Present Illness General Chief complaint: Illness Stated complaint: HAND PAIN & HAND CONTRACTION Time Seen by Provider: 03/11/20 14:18 Source: patient History of Present Illness Provider complaint: Hand contractures and pain Onset (ago): day(s) 3 Location: upper extremity, left and right Pain Consistency: + constant Quality: + other (Cramping) Relieved By: + none Associated symptoms: + cough, + fever/chills, + malaise and + shortness of breath; no chest pain This is a 59-year-old male brought in from the longterm for evaluation of hand contractures and pain. The patient states that his symptoms have been going on for 3 days. His wrists are flexed and he has crampy pain to the hands and the wrists. No alleviating factors. He was sent in today because he developed a fever as well as body aches and cough with shortness of breath. The nurse states that the longterm staff were concerned about rhabdomyolysis. The patient denies any chest discomfort, abdominal pain or vomiting. He has had diarrhea and loss of taste. There are multiple sick contacts within the longterm with COVID-19 but he has not been tested. He does state that his blood pressure is normally low due to his weight. Home Medications Medication Instructions Recorded Confirmed Type Creon 1 cap PO TIDM 09/22/19 03/11/20 History calcium carbonate [Calcium 600] 600 mg PO BID 09/22/19 03/11/20 History cyanocobalamin (vitamin B-12) 1,000 mcg SUBCUT MONTHLY 09/22/19 03/11/20 History ferrous sulfate 325 mg PO HS 09/22/19 03/11/20 History folic acid 1 mg PO HS 09/22/19 03/11/20 History mirtazapine 15 mg PO HS 09/22/19 03/11/20 History tamsulosin 0.4 mg PO BID 09/22/19 03/11/20 History famotidine 20 mg PO BID #60 tab 09/28/19 03/11/20 Rx magnesium oxide 400 mg PO BID #60 tab 09/28/19 03/11/20 Rx potassium chloride [Klor-Con M20] 20 meq PO BID #60 tab 09/28/19 03/11/20 Rx bismuth subsalicylate [Mccoole 3 tab PO TID PRN 03/11/20 03/11/20 History Bismuth] budesonide [Entocort EC] 3 mg PO DAILY 03/11/20 03/11/20 History cholecalciferol (vitamin D3) 250 mcg PO DAILY 03/11/20 03/11/20 History [Vitamin D3] ibuprofen 600 mg PO TID PRN 03/11/20 03/11/20 History lactase 3,000 unit PO AC 03/11/20 03/11/20 History levothyroxine 37.5 mcg PO DAILY 03/11/20 03/11/20 History loperamide [Anti-Diarrhea] 2 mg PO TID 03/11/20 03/11/20 History sertraline 25 mg PO HS 03/11/20 03/11/20 History thiamine mononitrate (vit B1) 200 mg PO BID 03/11/20 03/11/20 History [Vitamin B-1 (mononitrate)] Allergies Allergy/AdvReac Type Severity Reaction Status Date / Time gluten Allergy Unknown GI SYMPTOMS Verified 03/11/20 17:00 Penicillins Allergy Unknown unknown Verified 03/11/20 17:00 lactose AdvReac Gastrointestinal Verified 03/11/20 17:00 Upset Past Med/Surg History Medical History (Updated 03/11/20 @ 17:41 by Amari Castellanos MD) Anemia B12 deficiency BPH (benign prostatic hyperplasia) Celiac disease Chronic deep vein thrombosis (DVT) Chronic deep vein thrombosis (DVT) of right lower extremity Coagulopathy GERD (gastroesophageal reflux disease) Hypothyroid Prolonged Q-T interval on ECG Protein malnutrition Vitamin K deficiency Surgical History H/O splenectomy Family History Other No pertinent family history Social History Smoking Status: Former smoker Second Hand Exposure: No; Hx Alcohol Use: No Hx Substance Use: No Preferred Language: Armenian Communication Ability: Effective Butcher Helper Required: No Beliefs That Will Affect Care: None marital status: Unknown Current Living Situation: Other Feels Safe at Home: Yes Assistive Devices: None Review of Systems See HPI for pertinent positives & negatives. and A total of 10 systems reviewed and were otherwise negative Physical Exam Vital Signs Vital Signs - 24 hr 03/11/20 13:43 03/11/20 13:47 03/11/20 13:50 Temperature Temperature Source Pulse Rate 128 H 130 H 123 H Pulse Rate from SpO2 Sensor 129 H Respiratory Rate 30 H 19 26 H Blood Pressure 97/69 L Blood Pressure Mean 74 Pulse Oximetry 94 Oxygen Delivery Method Oxygen Flow Rate Sepsis Recent Fever Within 48 Hours Sepsis New/Unexplained Change in Mental Status Sepsis Action Taken by Nursing 03/11/20 13:51 03/11/20 13:56 03/11/20 14:00 Temperature 37.2 C 38.3 C H Temperature Source Oral Rectal Pulse Rate 119 H 118 H 118 H Pulse Rate from SpO2 Sensor 117 H 116 H Respiratory Rate 30 H 22 21 Blood Pressure 97/69 L 89/61 L Blood Pressure Mean 78 75 Pulse Oximetry 93 95 94 Oxygen Delivery Method Room Air Nasal Cannula Oxygen Flow Rate 2 Sepsis Recent Fever Within 48 Hours Yes Sepsis New/Unexplained Change in Mental Status No Sepsis Action Taken by Nursing Physician Notified 03/11/20 14:04 03/11/20 14:10 03/11/20 14:15 Temperature Temperature Source Pulse Rate 121 H 116 H 116 H Pulse Rate from SpO2 Sensor 120 H 117 H 115 H Respiratory Rate Blood Pressure 91/60 L 88/62 L Blood Pressure Mean 75 66 Pulse Oximetry 93 92 93 Oxygen Delivery Method Oxygen Flow Rate Sepsis Recent Fever Within 48 Hours Sepsis New/Unexplained Change in Mental Status Sepsis Action Taken by Nursing 03/11/20 14:20 03/11/20 14:30 03/11/20 14:31 Temperature Temperature Source Pulse Rate 120 H 108 H 116 H Pulse Rate from SpO2 Sensor 119 H 107 H 107 H Respiratory Rate 18 22 Blood Pressure 95/59 L Blood Pressure Mean 69 Pulse Oximetry 93 94 92 Oxygen Delivery Method Oxygen Flow Rate Sepsis Recent Fever Within 48 Hours Sepsis New/Unexplained Change in Mental Status Sepsis Action Taken by Nursing 03/11/20 14:34 03/11/20 14:40 03/11/20 14:45 Temperature Temperature Source Pulse Rate 109 H 110 H Pulse Rate from SpO2 Sensor 115 H 110 H Respiratory Rate 21 20 Blood Pressure 94/61 L Blood Pressure Mean 72 Pulse Oximetry 94 94 94 Oxygen Delivery Method Room Air Oxygen Flow Rate Sepsis Recent Fever Within 48 Hours Sepsis New/Unexplained Change in Mental Status Sepsis Action Taken by Nursing 03/11/20 14:50 03/11/20 15:00 03/11/20 15:01 Temperature Temperature Source Pulse Rate 102 H 106 H 107 H Pulse Rate from SpO2 Sensor 101 H 108 H 107 H Respiratory Rate 25 H 20 15 Blood Pressure 94/64 L Blood Pressure Mean 74 Pulse Oximetry 96 96 95 Oxygen Delivery Method Oxygen Flow Rate Sepsis Recent Fever Within 48 Hours Sepsis New/Unexplained Change in Mental Status Sepsis Action Taken by Nursing 03/11/20 15:10 03/11/20 15:16 03/11/20 15:20 Temperature Temperature Source Pulse Rate 105 H 99 H 98 H Pulse Rate from SpO2 Sensor 106 H 97 H 101 H Respiratory Rate 16 13 14 Blood Pressure 101/65 Blood Pressure Mean 73 Pulse Oximetry 96 95 95 Oxygen Delivery Method Oxygen Flow Rate Sepsis Recent Fever Within 48 Hours Sepsis New/Unexplained Change in Mental Status Sepsis Action Taken by Nursing 03/11/20 15:30 03/11/20 15:31 03/11/20 15:40 Temperature Temperature Source Pulse Rate 97 H 104 H 94 H Pulse Rate from SpO2 Sensor 94 H 100 H 94 H Respiratory Rate 26 H 17 14 Blood Pressure 104/75 Blood Pressure Mean 81 Pulse Oximetry 97 95 97 Oxygen Delivery Method Oxygen Flow Rate Sepsis Recent Fever Within 48 Hours Sepsis New/Unexplained Change in Mental Status Sepsis Action Taken by Nursing 03/11/20 15:45 03/11/20 16:00 03/11/20 16:03 Temperature Temperature Source Pulse Rate 94 H 94 H Pulse Rate from SpO2 Sensor 96 H Respiratory Rate 19 16 Blood Pressure 100/65 Blood Pressure Mean 78 69 Pulse Oximetry 99 Oxygen Delivery Method Oxygen Flow Rate Sepsis Recent Fever Within 48 Hours Sepsis New/Unexplained Change in Mental Status Sepsis Action Taken by Nursing 03/11/20 16:10 03/11/20 16:15 03/11/20 16:20 Temperature Temperature Source Pulse Rate 97 H 86 87 Pulse Rate from SpO2 Sensor 96 H 89 87 Respiratory Rate 16 18 15 Blood Pressure 95/67 L Blood Pressure Mean 72 Pulse Oximetry 99 99 99 Oxygen Delivery Method Room Air Oxygen Flow Rate Sepsis Recent Fever Within 48 Hours Sepsis New/Unexplained Change in Mental Status Sepsis Action Taken by Nursing 03/11/20 16:30 03/11/20 16:31 Temperature Temperature Source Pulse Rate 76 78 Pulse Rate from SpO2 Sensor 76 79 Respiratory Rate 14 15 Blood Pressure 116/67 Blood Pressure Mean 89 Pulse Oximetry 99 99 Oxygen Delivery Method Oxygen Flow Rate Sepsis Recent Fever Within 48 Hours Sepsis New/Unexplained Change in Mental Status Sepsis Action Taken by Nursing Constitutional: Vital signs reviewed. Hypotensive. Cachectic. Eyes: Pupils are equal round reactive to light. Conjunctiva are noninjected. ENT: Pharynx is clear without erythema or exudate. Mucous membranes are dry. Neck supple without meningeal signs. Respiratory: Clear to auscultation bilaterally. Breath sounds are equal bilaterally. Cardiovascular: Regular rate and rhythm. No rubs or gallops. GI: Soft, nondistended and nontender. Bowel sounds are present. Musculoskeletal: No peripheral edema. No lower extremity tenderness. Integumentary: No cyanosis. or jaundice. Neurological: The patient is awake and alert. Cranial nerves are intact. Strength is intact in the extremities but he has his hands in flexion at the wrists and his feet are in plantar flexion bilaterally. Unable to test DTRs. Psychiatric: Normal affect. Not anxious appearing. Course Administered Medications Magnesium Sulfate/Dextrose (Magnesium Sulfate / D5w) 1 gm in 100 mls @ 100 mls/hr IV Q1H TIMOTEO Stop: 03/11/20 18:26 Last Admin: 03/11/20 16:51 Dose: 100 mls/hr Documented by: [id number] Discontinued Medications Dextrose (Dextrose 50% 50 Ml Syringe) 50 ml IV NOW STA Stop: 03/11/20 14:38 Last Admin: 03/11/20 14:49 Dose: 50 ml Documented by: [id number] Sodium Chloride (Nss 1000ml) 1,000 mls @ 999 mls/hr IV .Q1H1M ONE Stop: 03/11/20 15:35 Last Infusion: 03/11/20 15:44 Dose: 0 mls/hr Documented by: [id number] Admin: 03/11/20 14:50 Dose: 999 mls/hr Documented by: [id number] Calcium Gluconate 1,000 mg/ (Sodium Chloride) 60 mls @ 240 mls/hr IV NOW ONE Stop: 03/11/20 14:51 Last Infusion: 03/11/20 15:44 Dose: 0 mls/hr Documented by: [id number] Admin: 03/11/20 15:11 Dose: 240 mls/hr Documented by: [id number] Calcium Gluconate 2,000 mg/ (Sodium Chloride) 70 mls @ 240 mls/hr IV NOW ONE Stop: 03/11/20 16:10 Last Admin: 03/11/20 16:26 Dose: 240 mls/hr Documented by: [id number] Potassium Chloride (K Rhys / Wtr) 10 meq in 100 mls @ 100 mls/hr IV ONE ONE Stop: 03/11/20 17:25 Last Admin: 03/11/20 16:51 Dose: 100 mls/hr Documented by: [id number] Ioversol (Optiray 320 125ml) 120 ml IV ONCE ONE Stop: 03/11/20 15:53 Last Admin: 03/11/20 15:52 Dose: 120 ml Documented by: [id number] Potassium Chloride (Potassium Chloride 10 Meq Tabcr) 40 meq PO NOW STA Stop: 03/11/20 16:27 Last Admin: 03/11/20 16:49 Dose: 40 meq Documented by: [id number] Critical Care Time Critical Care Time: Yes Total Critical Care Time: 50 I have personally spent approximately 50 minutes of critical care time in the direct management of this patient. This includes bedside care, interpretation of diagnostic studies, and testing, discussion with consultants, patient, and family members, and other required patient management activities. These minutes are in excess of all separately billable procedures. Medical Decision Making Differential Diagnosis Metabolic derangement, hypocalcemia, hyperventilation syndrome, COVID-19, pneumonia, pulmonary embolism, sepsis Medical Records Attestation: I reviewed the patient's medical records. I did perform a limited focused review of portions of the patient's old chart on the electronic medical record. The patient Was admitted to the hospital in September of last year for small bowel obstruction secondary to an incarcerated inguinal hernia. Home Medications Current Medication List: was personally reviewed by me Laboratory Data Attestation: I reviewed the patient's lab results. Result diagrams: 03/11/20 13:55 03/11/20 13:55 Lab Results 03/11/20 03/11/20 03/11/20 Range/Units 13:55 13:55 13:55 WBC 10.47 (4.8-10.8) K/uL RBC 3.68 L (4.7-6.1) M/uL Hgb 10.7 L (14.0-18.0) g/dL POC Hgb (14.0-18.0) g/dl Hct 31.7 L (42-52) % POC Hct (42-52) % MCV 86.1 (80-100) fL MCH 29.1 (25-34) pg MCHC 33.8 (32-36) g/dL RDW Std Deviation 81.8 H (36.4-46.3) fL RDW Coeff of Tevin 26.8 H (11.5-14.5) % Plt Count 163 (130-400) K/uL Immature Gran % (Auto) 0.2 % Neut % (Auto) 87.3 % Lymph % (Auto) 7.5 % [place] % (Auto) 4.8 % Eos % (Auto) 0.0 % Baso % (Auto) 0.2 % Neut # (Auto) 9.14 H (1.4-6.5) K/uL Lymph # (Auto) 0.79 L (1.2-3.4) K/uL [place] # (Auto) 0.50 (0.11-0.59) K/uL Eos # (Auto) 0.00 (0-0.5) K/uL Baso # (Auto) 0.02 (0-0.2) K/uL Immature Gran # (Auto) 0.02 (0.00-0.02) K/uL Polychromasia 1+ Anisocytosis Present Macrocytosis Present Pappenheimer Bodies 1+ Target Cells 2+ Echinocytes 1+ PT 27.5 H (9.0-12.0) Seconds INR 2.8 H (0.9-1.1) APTT 28.8 (21.0-31.0) Seconds PTT Ratio 1.0 POC Sodium (135-144) mmol/L Sodium 140 (136-145) mmol/L POC Potassium (3.3-5.0) mmol/L Potassium 3.0 L (3.5-5.1) mmol/L POC Chloride (101-112) mmol/L Chloride 112 H (98-107) mmol/L Carbon Dioxide 17 L (21-32) mmol/L POC Total CO2 (24-31) mmol/L Anion Gap 11.0 (3-11) POC Anion Gap (16-25) mmol/L POC BUN (7-18) mg/dl BUN 12 (7-18) mg/dl Creatinine 0.78 (0.6-1.4) mg/dl POC Creatinine (0.6-1.3) mg/dl Est Cr Clr Drug Dosing 63.0 ml/min Est GFR ( Amer) 112.9 Est GFR (Non-Af Amer) 97.4 BUN/Creatinine Ratio 15.7 (10-20) Glucose 47 L* (70-99) mg/dl POC Glucose (70-99) mg/dl POC Glucose (other) (70-99) mg/dl Lactate (0.4-2.0) mmol/L Calcium < 5.0 L* (8.5-10.1) mg/dl POC Ioniz Calcium Malaika (1.12-1.32) mmol/l Magnesium 1.2 L (1.8-2.4) mg/dl Total Bilirubin 0.3 (0.2-1) mg/dl AST 142 H (15-37) U/L ALT 113 H (12-78) U/L Alkaline Phosphatase 376 H (45-117) U/L Troponin I < 0.015 (0-0.045) ng/ml Total Protein 6.7 (6.4-8.2) gm/dl Albumin 2.2 L (3.4-5.0) gm/dl Globulin 4.5 H (2.5-4.0) gm/dl Albumin/Globulin Ratio 0.5 L (0.9-2) Lipase (73-393) U/L TSH 6.470 H (0.300-4.500) uIu/ml Free T4 1.35 (0.8-1.6) ng/dl PTH Intact (18.4-80.1) pg/ml COVID-19 Eval Order SARS-CoV-2 (PCR) (Negative) Influenza Type A (PCR) (Neg) Influenza Type B (PCR) (Neg) RSV (RT-PCR) (Neg) 03/11/20 03/11/20 03/11/20 Range/Units 13:55 14:00 14:00 WBC (4.8-10.8) K/uL RBC (4.7-6.1) M/uL Hgb (14.0-18.0) g/dL POC Hgb (14.0-18.0) g/dl Hct (42-52) % POC Hct (42-52) % MCV (80-100) fL MCH (25-34) pg MCHC (32-36) g/dL RDW Std Deviation (36.4-46.3) fL RDW Coeff of Tevin (11.5-14.5) % Plt Count (130-400) K/uL Immature Gran % (Auto) % Neut % (Auto) % Lymph % (Auto) % [place] % (Auto) % Eos % (Auto) % Baso % (Auto) % Neut # (Auto) (1.4-6.5) K/uL Lymph # (Auto) (1.2-3.4) K/uL [place] # (Auto) (0.11-0.59) K/uL Eos # (Auto) (0-0.5) K/uL Baso # (Auto) (0-0.2) K/uL Immature Gran # (Auto) (0.00-0.02) K/uL Polychromasia Anisocytosis Macrocytosis Pappenheimer Bodies Target Cells Echinocytes PT (9.0-12.0) Seconds INR (0.9-1.1) APTT (21.0-31.0) Seconds PTT Ratio POC Sodium (135-144) mmol/L Sodium (136-145) mmol/L POC Potassium (3.3-5.0) mmol/L Potassium (3.5-5.1) mmol/L POC Chloride (101-112) mmol/L Chloride (98-107) mmol/L Carbon Dioxide (21-32) mmol/L POC Total CO2 (24-31) mmol/L Anion Gap (3-11) POC Anion Gap (16-25) mmol/L POC BUN (7-18) mg/dl BUN (7-18) mg/dl Creatinine (0.6-1.4) mg/dl POC Creatinine (0.6-1.3) mg/dl Est Cr Clr Drug Dosing ml/min Est GFR ( Amer) Est GFR (Non-Af Amer) BUN/Creatinine Ratio (10-20) Glucose (70-99) mg/dl POC Glucose (70-99) mg/dl POC Glucose (other) (70-99) mg/dl Lactate (0.4-2.0) mmol/L Calcium (8.5-10.1) mg/dl POC Ioniz Calcium Malaika (1.12-1.32) mmol/l Magnesium (1.8-2.4) mg/dl Total Bilirubin (0.2-1) mg/dl AST (15-37) U/L ALT (12-78) U/L Alkaline Phosphatase (45-117) U/L Troponin I (0-0.045) ng/ml Total Protein (6.4-8.2) gm/dl Albumin (3.4-5.0) gm/dl Globulin (2.5-4.0) gm/dl Albumin/Globulin Ratio (0.9-2) Lipase (73-393) U/L TSH (0.300-4.500) uIu/ml Free T4 (0.8-1.6) ng/dl PTH Intact 359.5 H (18.4-80.1) pg/ml COVID-19 Eval Order CovFluRsv at [facility] SARS-CoV-2 (PCR) POSITIVE A* (Negative) Influenza Type A (PCR) Negative (Neg) Influenza Type B (PCR) Negative (Neg) RSV (RT-PCR) Negative (Neg) 03/11/20 03/11/20 03/11/20 Range/Units 14:35 16:30 16:37 WBC (4.8-10.8) K/uL RBC (4.7-6.1) M/uL Hgb (14.0-18.0) g/dL POC Hgb 11.9 L (14.0-18.0) g/dl Hct (42-52) % POC Hct 35 L (42-52) % MCV (80-100) fL MCH (25-34) pg MCHC (32-36) g/dL RDW Std Deviation (36.4-46.3) fL RDW Coeff of Tevin (11.5-14.5) % Plt Count (130-400) K/uL Immature Gran % (Auto) % Neut % (Auto) % Lymph % (Auto) % [place] % (Auto) % Eos % (Auto) % Baso % (Auto) % Neut # (Auto) (1.4-6.5) K/uL Lymph # (Auto) (1.2-3.4) K/uL [place] # (Auto) (0.11-0.59) K/uL Eos # (Auto) (0-0.5) K/uL Baso # (Auto) (0-0.2) K/uL Immature Gran # (Auto) (0.00-0.02) K/uL Polychromasia Anisocytosis Macrocytosis Pappenheimer Bodies Target Cells Echinocytes PT (9.0-12.0) Seconds INR (0.9-1.1) APTT (21.0-31.0) Seconds PTT Ratio POC Sodium 139 (135-144) mmol/L Sodium (136-145) mmol/L POC Potassium 4.9 (3.3-5.0) mmol/L Potassium (3.5-5.1) mmol/L POC Chloride 107 (101-112) mmol/L Chloride (98-107) mmol/L Carbon Dioxide (21-32) mmol/L POC Total CO2 18 L (24-31) mmol/L Anion Gap (3-11) POC Anion Gap 19.0 (16-25) mmol/L POC BUN 15 (7-18) mg/dl BUN (7-18) mg/dl Creatinine (0.6-1.4) mg/dl POC Creatinine 0.7 (0.6-1.3) mg/dl Est Cr Clr Drug Dosing ml/min Est GFR ( Amer) Est GFR (Non-Af Amer) BUN/Creatinine Ratio (10-20) Glucose (70-99) mg/dl POC Glucose 80 (70-99) mg/dl POC Glucose (other) 48 L* (70-99) mg/dl Lactate 0.9 (0.4-2.0) mmol/L Calcium (8.5-10.1) mg/dl POC Ioniz Calcium Malaika 0.51 L* (1.12-1.32) mmol/l Magnesium (1.8-2.4) mg/dl Total Bilirubin (0.2-1) mg/dl AST (15-37) U/L ALT (12-78) U/L Alkaline Phosphatase (45-117) U/L Troponin I (0-0.045) ng/ml Total Protein (6.4-8.2) gm/dl Albumin (3.4-5.0) gm/dl Globulin (2.5-4.0) gm/dl Albumin/Globulin Ratio (0.9-2) Lipase (73-393) U/L TSH (0.300-4.500) uIu/ml Free T4 (0.8-1.6) ng/dl PTH Intact (18.4-80.1) pg/ml COVID-19 Eval Order SARS-CoV-2 (PCR) (Negative) Influenza Type A (PCR) (Neg) Influenza Type B (PCR) (Neg) RSV (RT-PCR) (Neg) 03/11/20 Range/Units 16:37 WBC (4.8-10.8) K/uL RBC (4.7-6.1) M/uL Hgb (14.0-18.0) g/dL POC Hgb (14.0-18.0) g/dl Hct (42-52) % POC Hct (42-52) % MCV (80-100) fL MCH (25-34) pg MCHC (32-36) g/dL RDW Std Deviation (36.4-46.3) fL RDW Coeff of Tevin (11.5-14.5) % Plt Count (130-400) K/uL Immature Gran % (Auto) % Neut % (Auto) % Lymph % (Auto) % [place] % (Auto) % Eos % (Auto) % Baso % (Auto) % Neut # (Auto) (1.4-6.5) K/uL Lymph # (Auto) (1.2-3.4) K/uL [place] # (Auto) (0.11-0.59) K/uL Eos # (Auto) (0-0.5) K/uL Baso # (Auto) (0-0.2) K/uL Immature Gran # (Auto) (0.00-0.02) K/uL Polychromasia Anisocytosis Macrocytosis Pappenheimer Bodies Target Cells Echinocytes PT (9.0-12.0) Seconds INR (0.9-1.1) APTT (21.0-31.0) Seconds PTT Ratio POC Sodium (135-144) mmol/L Sodium (136-145) mmol/L POC Potassium (3.3-5.0) mmol/L Potassium (3.5-5.1) mmol/L POC Chloride (101-112) mmol/L Chloride (98-107) mmol/L Carbon Dioxide (21-32) mmol/L POC Total CO2 (24-31) mmol/L Anion Gap (3-11) POC Anion Gap (16-25) mmol/L POC BUN (7-18) mg/dl BUN (7-18) mg/dl Creatinine (0.6-1.4) mg/dl POC Creatinine (0.6-1.3) mg/dl Est Cr Clr Drug Dosing ml/min Est GFR ( Amer) Est GFR (Non-Af Amer) BUN/Creatinine Ratio (10-20) Glucose (70-99) mg/dl POC Glucose (70-99) mg/dl POC Glucose (other) (70-99) mg/dl Lactate (0.4-2.0) mmol/L Calcium (8.5-10.1) mg/dl POC Ioniz Calcium Malaika (1.12-1.32) mmol/l Magnesium (1.8-2.4) mg/dl Total Bilirubin (0.2-1) mg/dl AST (15-37) U/L ALT (12-78) U/L Alkaline Phosphatase (45-117) U/L Troponin I (0-0.045) ng/ml Total Protein (6.4-8.2) gm/dl Albumin (3.4-5.0) gm/dl Globulin (2.5-4.0) gm/dl Albumin/Globulin Ratio (0.9-2) Lipase 292 (73-393) U/L TSH (0.300-4.500) uIu/ml Free T4 (0.8-1.6) ng/dl PTH Intact (18.4-80.1) pg/ml COVID-19 Eval Order SARS-CoV-2 (PCR) (Negative) Influenza Type A (PCR) (Neg) Influenza Type B (PCR) (Neg) RSV (RT-PCR) (Neg) Imaging Data Radiologist's Impression: CT angio chest PE protocol CT DOSE: 232.85 mGycm HISTORY: 59 years-old Male with sob eval for PE. Acute shortness of breath TECHNIQUE: Multiple CTA images of the chest were obtained after the intravenous administration of 90 ml Optiray 320. Coronal and sagittal MIPS were obtained from the axial data set and were submitted for review. All measurements were obtained according to NASCET criteria. A dose lowering technique was utilized adhering to the principles of ALARA. COMPARISON: CTA chest 08/05/2017 FINDINGS: CTA: Heart is normal in size. No pericardial effusion. No thoracic aortic aneurysm or dissection. Patency of the imaged great vessels. Pulmonary artery is opacified to the level of the subsegmental branches and demonstrates no filling defects to suggest thromboembolic disease. CT CHEST: Unremarkable thyroid. No adenopathy. No pneumothorax or pleural effusion. Mucous plugging is noted within the left lower lobe. Mild groundglass opacities of the right middle lobe and lingula. No overt pulmonary edema. Nonspecific distal esophageal wall thickening. Debris-filled stomach. Hepatic steatosis. Unremarkable soft tissues. Degenerative changes of the spine and shoulders. There is no acute fracture. IMPRESSION: 1. No evidence of pulmonary emboli. 2. Groundglass opacities of the right middle lobe and lingula are suspicious for an infectious or inflammatory pneumonitis. 3. Mucous plugging, most pronounced in the left lower lobe. 4. No pleural effusion or adenopathy. ACT 112: Negative or not required by law. The above report was generated using voice recognition software. It may contain grammatical, syntax or spelling errors. Electronically signed by: Pradip Garcia M.D. 03/11/2020 4:22 PM Dictated: 03/11/20 1603 Transcribed: 03/11/20 1603 ECG Data Attestation: I personally reviewed and interpreted this ECG as follows: Indication: + SOB/dyspnea Rate (beats per minute): 128 Rhythm: + sinus tachycardia ECG [place]: + Normal ECG ST segments: no ST elevation ECG Findings: + Other (QTC 487 ms); no PVCs MDM Narrative I did evaluate the patient as noted above. The patient is presenting with cramping and contractures of his hands and feet for the past 3 days. He also developed COVID-19 symptoms today including loss of taste, fever, myalgias and shortness of breath. He is fairly hypertensive here and febrile. IV access was established. He was given a liter of normal saline IV. I did place an order for continuous cardiac monitoring. The monitor showed sinus tachycardia at a rate of 110 bpm. I did order and personally review the patient's 12-lead EKG as described above. He has no evidence of acute ischemia. He does have no evidence of QT prolongation. I did order and review the patient's blood work as noted in the electronic medical record. I-STAT labs show a calcium less than 5 and hyperglycemia. He was immediately given 1 g of calcium gluconate IV. He was also given D50 1 amp IV. Labs also showed hypokalemia and hypomagnesemia. Renal function is preserved. He is anemic. Looking at his previous labs he has had hypomagnesemia, hypocalcemia and hypokalemia as well as anemia in the past. He has never had a calcium is low however. After discussion with the ED pharmacist I did give an additional 2 g of calcium gluconate IV. He was also given oral potassium and IV calcium and magnesium. His TSH is elevated but free T4 is within normal limits. PTH is elevated. Lipase is [address] angiogram of the chest. I did review the images myself as well as the radiology report as described above. He appears to have a pneumonia in the lingula and right middle lobe but no evidence of pulmonary embolism. The patient's blood pressure improved. It stayed in the 90s systolic but looking back on his chart he appeared to have had blood pressures at about this level on previous admissions. His tachycardia did improve. Repeat blood sugar is 80. I did discuss the case with the hospitalist and business case analyst. Impression & Plan Hypocalcemia, Hypokalemia, Hypomagnesemia, Pneumonia due to 2019-nCoV, Anemia, Hypoglycemia Discharge Plan Visit Data Chief Complaint: Illness Stated Complaint: HAND PAIN & HAND CONTRACTION ED Provider: Amari Castellanos Discharge Problem: Hypocalcemia, Hypokalemia, Hypomagnesemia, Pneumonia due to 2019-nCoV, Anemia, Hypoglycemia Patient Disposition: Being Evaluated by Hospitalist Forms Stand Alone Forms: [facility] Prescriptions Prescriptions: No Action loperamide [Anti-Diarrhea] 2 mg Tablet 2 mg PO TID RF: 0 levothyroxine 25 mcg Tablet 37.5 mcg PO DAILY RF: 0 sertraline 25 mg Tablet 25 mg PO HS RF: 0 bismuth subsalicylate [Mccoole Bismuth] 262 mg Tablet,Chewable 3 tab PO TID PRN (Reason: Gi Upset) RF: 0 ibuprofen 600 mg Tablet 600 mg PO TID PRN (Reason: Pain) RF: 0 lactase 3,000 unit tablet 3,000 unit PO AC RF: 0 budesonide [Entocort EC] 3 mg capsule,delayed,extend.release 3 mg PO DAILY RF: 0 thiamine mononitrate (vit B1) [Vitamin B-1 (mononitrate)] 100 mg Tablet 200 mg PO BID RF: 0 cholecalciferol (vitamin D3) [Vitamin D3] 125 mcg (5,000 unit) Tablet 250 mcg PO DAILY RF: 0 calcium carbonate [Calcium 600] 600 mg calcium (1,500 mg) Tablet 600 mg PO BID RF: 0 tamsulosin 0.4 mg Capsule 0.4 mg PO BID RF: 0 cyanocobalamin (vitamin B-12) 1,000 mcg/mL Solution 1,000 mcg SUBCUT MONTHLY RF: 0 ferrous sulfate 325 mg (65 mg iron) Tablet 325 mg PO HS RF: 0 folic acid 1 mg Tablet 1 mg PO HS RF: 0 mirtazapine 15 mg Tablet,Disintegrating 15 mg PO HS RF: 0 Creon 24,000-76,000 -120,000 unit Capsule,Delayed Release(Dr/Ec) 1 cap PO TIDM RF: 0 potassium chloride [Klor-Con M20] 20 mEq Tablet,Er Particles/Crystals 20 meq PO BID Qty: 60 RF: 0 magnesium oxide 400 mg (241.3 mg magnesium) Tablet 400 mg PO BID Qty: 60 RF: 0 famotidine 20 mg Tablet 20 mg PO BID Qty: 60 RF: 5 Referrals Referrals: Mike CHEUNG [Primary Care Provider] - Discharge Problem: Anemia Qualifiers: Anemia type: unspecified type Qualified Code(s): D64.9 - Anemia, unspecified
[2020-03-11 14:48] LABS: iSTAT Creatinine 0.7 mg/dl (0.6-1.3); iSTAT Hemoglobin 11.9 g/dl (14.0-18.0); iSTAT Ionized Calcium 0.51 mmol/l (1.12-1.32); iSTAT Potassium 4.9 mmol/L (3.3-5.0)
[2020-03-11 15:00] LABS: Hematocrit (blood only) 31.7 % (42-52); Hemoglobin 10.7 g/dL (14.0-18.0); Mean Corpuscular Hemoglobin 29.1 pg (25-34); Mean Corpuscular Hgb Conc 33.8 g/dL (32-36); Mean Corpuscular Volume 86.1 fL (80-100); Platelet Count 163 K/uL (130-400); RDW Coefficient of Variation 26.8 % (11.5-14.5); RDW Standard Deviation 81.8 fL (36.4-46.3); Red Blood Count 3.68 M/uL (4.7-6.1); White Blood Count 10.47 K/uL (4.8-10.8)
[2020-03-11 15:14] LABS: INR 2.8 (0.9-1.1); Partial Thromboplastin Time 28.8 Seconds (21.0-31.0); Prothrombin Time 27.5 Seconds (9.0-12.0)
[2020-03-11 15:24] LABS: Alanine Aminotransferase 113 U/L (12-78); Albumin Globulin Ratio 0.5 (0.9-2); Albumin Level 2.2 gm/dl (3.4-5.0); Alkaline Phosphatase 376 U/L (45-117); Aspartate Aminotransferase 142 U/L (15-37); BUN Creatinine Ratio 15.7 (10-20); Bilirubin,Total 0.3 mg/dl (0.2-1); Blood Urea Nitrogen 12 mg/dl (7-18); Calcium < 5.0 mg/dl (8.5-10.1); Carbon Dioxide 17 mmol/L (21-32); Chloride 112 mmol/L (98-107); Est GFR (African American) 112.9; Est GFR (Non-African American) 97.4; Globulin 4.5 gm/dl (2.5-4.0); Glucose 47 mg/dl (70-99); Magnesium 1.2 mg/dl (1.8-2.4); Sodium 140 mmol/L (136-145); Total Protein 6.7 gm/dl (6.4-8.2); Troponin I < 0.015 ng/ml (0-0.045)
[2020-03-11 15:34] LABS: Anisocytosis Present; Basophils # (auto) 0.02 K/uL (0-0.2); Basophils % (auto) 0.2 %; Echinocytes 1+; Immature Granulocytes # (auto) 0.02 K/uL (0.00-0.02); Immature Granulocytes % (auto) 0.2 %; Lymphocytes # (auto) 0.79 K/uL (1.2-3.4); Lymphocytes % (auto) 7.5 %; Macrocytosis Present; Monocytes % (auto) 4.8 %; Neutrophils # (auto) 9.14 K/uL (1.4-6.5); Neutrophils % (auto) 87.3 %; Pappenheimer Bodies 1+; Polychromasia 1+; Target Cells 2+
[2020-03-11 15:45] LABS: T4 Free Thyroxine 1.35 ng/dl (0.8-1.6)
[2020-03-11 15:47] LABS: Influenza A virus by PCR Negative (Neg); Influenza B virus by PCR Negative (Neg); RSV by PCR Negative (Neg)
[2020-03-11] MEDS ORDERED: OPTIRAY 320 125ml IV ONE (15:52)
[2020-03-11] MEDS ORDERED: CALCIUM GLUCONATE 10% 2,000 MG in SODIUM CHLORIDE 0.9% 50 ML IV ONE (15:53)
[2020-03-11 15:54] LABS: SARS CoV2 RNA(COVID-19) InHosp POSITIVE (Negative)
--- NOTE | 2020-03-11 16:23 | CT Scan Report ---
CT angio chest PE protocol CT DOSE: 232.85 mGycm HISTORY: 59 years-old Male with sob eval for PE. Acute shortness of breath TECHNIQUE: Multiple CTA images of the chest were obtained after the intravenous administration of 90 ml Optiray 320. Coronal and sagittal MIPS were obtained from the axial data set and were submitted f or review. All measurements were obtained according to NASCET criteria. A dose lowering technique wa s utilized adhering to the principles of ALARA. COMPARISON: CTA chest 08/05/2017 FINDINGS: CTA: Heart is normal in size. No pericardial effusion. No thoracic aortic aneurysm or dissection. Patency of the imaged great vessels. Pulmonary artery is opacified to the level of the subsegmental branches and demonstrates no filling defects to suggest thromboembolic disease. CT CHEST: Unremarkable thyroid. No adenopathy. No pneumothorax or pleural effusion. Mucous plugging is noted wi thin the left lower lobe. Mild groundglass opacities of the right middle lobe and lingula. No overt p ulmonary edema. Nonspecific distal esophageal wall thickening. Debris-filled stomach. Hepatic steatosis. Unremarkable soft tissues. Degenerative changes of the spine and shoulders. There is no acute fracture. IMPRESSION: 1. No evidence of pulmonary emboli. 2. Groundglass opacities of the right middle lobe and lingula are suspicious for an infectious or inf lammatory pneumonitis. 3. Mucous plugging, most pronounced in the left lower lobe. 4. No pleural effusion or adenopathy. ACT 112: Negative or not required by law. The above report was generated using voice recognition software. It may contain grammatical, syntax o r spelling errors. Electronically signed by: Pradip Garcia M.D. 03/11/2020 4:22 PM
[2020-03-11] MEDS ORDERED: POTASSIUM CHLORIDE 10 MEQ TABCR PO STA (16:26)
[2020-03-11] MEDS ORDERED: POTASSIUM CHLORIDE / WTR 10 MEQ/100 ML PLCT IV ONE (16:26)
[2020-03-11] MEDS: MAGNESIUM SULFATE / D5W 1 GM/100 ML BAG IV SCH ×2 (16:51→17:52)
[2020-03-11 17:08] LABS: Lipase 292 U/L (73-393)
[2020-03-11 18:20] LABS: BUN Creatinine Ratio 15.9 (10-20); Blood Urea Nitrogen 11 mg/dl (7-18); Calcium < 5.0 mg/dl (8.5-10.1); Carbon Dioxide 17 mmol/L (21-32); Chloride 112 mmol/L (98-107); Creatinine Clr Calc Pharmacy 73.4 ml/min; Est GFR (African American) 120.2; Est GFR (Non-African American) 103.7; Glucose 75 mg/dl (70-99); Sodium 139 mmol/L (136-145)
[2020-03-11 19:04] LABS: BUN Creatinine Ratio 16.1 (10-20); Blood Urea Nitrogen 11 mg/dl (7-18); Carbon Dioxide 20 mmol/L (21-32); Chloride 113 mmol/L (98-107); Creatinine Clr Calc Pharmacy 73.4 ml/min; Est GFR (African American) 120.2; Est GFR (Non-African American) 103.7; Glucose 89 mg/dl (70-99); Potassium 2.1 mmol/L (3.5-5.1); Sodium 141 mmol/L (136-145)
[2020-03-11 19:06] LABS: Calcium < 5.0 mg/dl (8.5-10.1)
--- NOTE | 2020-03-11 19:31 | History & Physical Report ---
Date of Service March 11, 2020 Assessment & Plan (1) Pneumonia due to 2019-nCoV: Rikki Pascual 59yo inmate with a PMHx of prior severe electrolyte derangement with hypomagnesemia, hypokalemia, and hypercalcemia, A. fib, hypotension and celiac disease who presents with 3 days of of worsened muscle aches, cramps, and hand contractures with pain who was found to have severe electrolyte abnormalities and Covid positive on admission. Severe electrolyte abnormalities Patient with longstanding history, unable to take p.o. repletion in the setting of acute illness. Suspect combination of nutritional deficiency with celiac worsened with acute illness. May consider nephro consult for electrolyte wasting. Admitting sodium 141. Trend. Admitting potassium 2.0. Magnesium as below. K riders x8+ oral repletion 20 M EQ every 4 hours x3. Magnesium 1.2. Received 1 g mag sulfate in ER. Additional 2 g IV pending on transfer. Ionized calcium 0.51. Received 2 g calcium gluconate in ED. Given contractures and symptomatic hypocalcemia recommend continued repletion, calcium glucose 10% +1, deferred calcium choloride due to poor vasculature and burning with initial gluconate infusion with concern for of extravasation/necrosis. CaCarbonate 500mg PO BID. Magnesium repletion as above. Trend calcium. Vitamin D pending, 5000 IU daily BMP every 2 hours Deceived 1 L NSS bolus in ED. repeat bolus as needed. - Phos pending. May convert some PO potassium to KPhos as needed to balance re pletion - Glucose checks with BMP, POC PRN Hypertension Baseline low blood pressure in low 100s to 90s on prior review Covid positive No hypoxia. Dexamethasone, remdesivir, convalescent plasma not indicated Follow clinically at this time Supplemental oxygen as needed Tylenol 650 mg every 4 hours as needed for fever - CTA: No evidence of pulmonary emboli. Groundglass opacities of the right middle lobe and lingula are suspicious for an infectious or inflammatory pneumonitis. Mucous plugging, most pronounced in the left lower lobe. No pleural effusion or adenopathy. Covid DVT prophylaxis as below Hypothyroidism Continue Synthroid Celiac Gluten-free diet Continue budesonide Depression Continue Remeron nightly Continue sertraline daily Past history of paroxysmal A. fib Normal sinus rhythm at time of assessment Normal rate at time of assessment Follow clinically Not on anticoagulation DVT prophylaxis: COVID Lovenox dosing. Cr wnl. Diet: Regular, gluten-free. IVFM as above. Defer additional bolus/maintenance at thsi time given high total volume infusion of electrolyte repletion Disposition: PCU CODE STATUS: Full code (2) Anemia: (3) Hypophosphatemia: (4) B12 deficiency: (5) Elevated INR: (6) Metabolic acidosis: (7) Hypomagnesemia: (8) Hypokalemia: (9) Hypothyroid: History of Present Illness Chief Complaint: Cramps, fever Primary Care Provider: SKYE Mckeon Rikki Samara 59yo inmate with a PMHx of prior severe electrolyte derangement with hypomagnesemia, hypokalemia, and hypercalcemia, A. fib, hypotension and celiac disease who presents with 3 days of of worsened muscle aches, cramps, and hand contractures with pain who was found to have severe electrolyte abnormalities and Covid positive on admission. Rikki reports that his first symptoms began about 1 week ago with increased shortness of breath with ambulation. He endorses a slight increase to an intermittent baseline cough which has worsened and then leveled off in the last 2 to 3 days. He endorses feeling feverish with chills in the last 2 to 3 days. He endorses diarrhea for 2 days improved with medication from the [facility], no diarrhea today. Endorses loss of sense of taste. He reports he has had some intermittent stomachache, but has not had vomiting and has been able to take his medications and has not missed any doses. He endorses that he has had hand cramps and wrist contractions for 2 days which have improved since arriving in the ER. Reports he knows he has been in the hospital but is not sure about his electrolyte instability in the past, and reports he has never seen a medical assistant ob gyn for this. He is not sure why his electrolytes have been off in the past. Notes an intact although overall slightly decreased appetite, has a history of celiac disease. Medical history: Reviewed Surgical history: Reviewed Allergies: Reviewed Social: Inmate. Denies tobacco, alcohol, recreational drug use. Reports multiple sick contacts with Covid in the [facility]. CODE STATUS: Full code Allergies Allergy/AdvReac Type Severity Reaction Status Date / Time gluten Allergy Unknown GI SYMPTOMS Verified 03/11/20 17:00 Penicillins Allergy Unknown unknown Verified 03/11/20 17:00 lactose AdvReac Gastrointestinal Verified 03/11/20 17:00 Upset Home Medications Medication Instructions Recorded Confirmed Type Creon 1 cap PO TIDM 09/22/19 03/11/20 History calcium carbonate [Calcium 600] 600 mg PO BID 09/22/19 03/11/20 History cyanocobalamin (vitamin B-12) 1,000 mcg SUBCUT MONTHLY 09/22/19 03/11/20 History ferrous sulfate 325 mg PO HS 09/22/19 03/11/20 History folic acid 1 mg PO HS 09/22/19 03/11/20 History mirtazapine 15 mg PO HS 09/22/19 03/11/20 History tamsulosin 0.4 mg PO BID 09/22/19 03/11/20 History famotidine 20 mg PO BID #60 tab 09/28/19 03/11/20 Rx magnesium oxide 400 mg PO BID #60 tab 09/28/19 03/11/20 Rx potassium chloride [Klor-Con M20] 20 meq PO BID #60 tab 09/28/19 03/11/20 Rx bismuth subsalicylate [[facility] 3 tab PO TID PRN 03/11/20 03/11/20 History Bismuth] budesonide [Entocort EC] 3 mg PO DAILY 03/11/20 03/11/20 History cholecalciferol (vitamin D3) 250 mcg PO DAILY 03/11/20 03/11/20 History [Vitamin D3] ibuprofen 600 mg PO TID PRN 03/11/20 03/11/20 History lactase 3,000 unit PO AC 03/11/20 03/11/20 History levothyroxine 37.5 mcg PO DAILY 03/11/20 03/11/20 History loperamide [Anti-Diarrhea] 2 mg PO TID 03/11/20 03/11/20 History sertraline 25 mg PO HS 03/11/20 03/11/20 History thiamine mononitrate (vit B1) 200 mg PO BID 03/11/20 03/11/20 History [Vitamin B-1 (mononitrate)] Past Med/Surg History Medical History (Updated 03/11/20 @ 17:41 by Amari Castellanos MD) Anemia B12 deficiency BPH (benign prostatic hyperplasia) Celiac disease Chronic deep vein thrombosis (DVT) Chronic deep vein thrombosis (DVT) of right lower extremity Coagulopathy GERD (gastroesophageal reflux disease) Hypothyroid Prolonged Q-T interval on ECG Protein malnutrition Vitamin K deficiency Surgical History H/O splenectomy Family History Other No pertinent family history Social History Smoking Status: Former smoker Second Hand Exposure: No; Hx Alcohol Use: No Hx Substance Use: No Preferred Language: Fijian Communication Ability: Effective Fixed Wing Pilot Required: No Beliefs That Will Affect Care: None marital status: Unknown Current Living Situation: Other Feels Safe at Home: Yes Assistive Devices: None Review of Systems Review of Systems: Constitutional: Endorses fever, chills, decreased appetite, fatigue Eyes: Denies double vision, vision change, eye pain ENT: Denies ear pain, sore throat, sinus pain Cardiovascular: Denies Chest pain, chest pressure, palpitations, extremity swelling Respiratory: See HPI Gastrointestinal: See HPI Genitourinary: Denies pain with urination, urinary urgency, urinary frequency Musculoskeletal: See HPI Integumentary:Denies rash, lesions, bruising Neurological: Denies headache, numbness, tingling, focal weakness Physical Exam Physical Exam: General: A&Ox3. Emaciated appearing male, appears older than stated age. Cooperative. HEENT: Atraumatic, normocephalic. Chovstek's sign positive. Pulm: CTAB A&P. -wheezes, -rales, -rhonchi. Symmetrical chest rise. No increase work of breathing. No respiratory distress. Cardiac: RRR, -mrg. Radial pulses intact and symmetrical. Abdominal: Nontender, nondistended, soft. BS present. CRANIAL NERVES: II: Pupils equal and reactive, no relative afferent pupillary defect, no VF cuts III, IV, : EOM intact, no gaze preference or deviation, no nystagmus. V: normal sensation in V1, V2, and V3 segments bilaterally VII: no asymmetry, no nasolabial fold flattening VIII: normal hearing to speech IX, X: normal palatal elevation, no uvular deviation XI: 5/5 head turn and 5/5 shoulder shrug bilaterally XII: midline tongue protrusion MOTOR: RUE: 5/5 Shoulder internal rotation, external rotation, flexion, extension, abduction, adduction 5/5 Elbow flexion/extension, wrist flexion/extension 5/5 supervisor toy parts former strength, finger flexion/extension, interosseus LUE: 5/5 Shoulder internal rotation, external rotation, flexion, extension, abduction, adduction 5/5 Elbow flexion/extension, wrist flexion/extension 5/5 supervisor toy parts former strength, finger flexion/extension, interosseus RLE: 5/5 to hip ankle dorsiflexion/plantarflexion LLE: 5/5 to hip ankle dorsiflexion/plantarflexion SENSORY: Normal to touch in upper and lower extremities without deficit or asymmetry Results & Data Results & Data ([facility]) Vital Signs (Past 12 Hours) Vital Signs Temp Pulse Resp BP Pulse Ox 03/11/20 19:01 97 H 17 97/61 L 98 03/11/20 19:00 84 18 03/11/20 18:40 82 15 99 03/11/20 18:31 79 15 98/66 L 98 03/11/20 18:30 84 16 98 03/11/20 18:20 83 98 03/11/20 18:10 86 98 03/11/20 18:01 95 H 99 03/11/20 18:00 89 25 H 98/78 L 98 03/11/20 17:50 102 H 17 97 03/11/20 17:40 80 15 97 03/11/20 17:31 81 15 98 03/11/20 17:30 85 12 111/78 99 03/11/20 17:20 64 15 97 03/11/20 17:10 62 18 98 03/11/20 17:00 85 12 110/75 96 03/11/20 16:50 82 16 99 03/11/20 16:40 77 13 98 03/11/20 16:31 78 15 99 03/11/20 16:30 76 14 116/67 99 03/11/20 16:20 87 15 99 03/11/20 16:15 86 18 95/67 L 99 03/11/20 16:10 97 H 16 99 03/11/20 16:03 94 H 16 100/65 99 03/11/20 16:00 94 H 19 03/11/20 15:40 94 H 14 97 03/11/20 15:31 104 H 17 95 01/13/21 15:30 97 H 26 H 104/75 97 03/11/20 15:20 98 H 14 95 03/11/20 15:16 99 H 13 101/65 95 03/11/20 15:10 105 H 16 96 03/11/20 15:01 107 H 15 95 03/11/20 15:00 106 H 20 94/64 L 96 03/11/20 14:50 102 H 25 H 96 03/11/20 14:45 110 H 20 94/61 L 94 03/11/20 14:40 109 H 21 94 03/11/20 14:34 94 03/11/20 14:31 116 H 22 92 03/11/20 14:30 108 H 18 95/59 L 94 03/11/20 14:20 120 H 93 03/11/20 14:15 116 H 88/62 L 93 03/11/20 14:10 116 H 92 03/11/20 14:04 121 H 91/60 L 93 03/11/20 14:00 38.3 C H 118 H 21 94 03/11/20 13:56 118 H 22 89/61 L 95 03/11/20 13:51 37.2 C 119 H 30 H 97/69 L 93 03/11/20 13:50 123 H 26 H 03/11/20 13:47 130 H 19 03/11/20 13:43 128 H 30 H 97/69 L 94 Laboratory Results Lab Results 03/11/20 03/11/20 03/11/20 Range/Units 13:55 13:55 13:55 WBC 10.47 (4.8-10.8) K/uL RBC 3.68 L (4.7-6.1) M/uL Hgb 10.7 L (14.0-18.0) g/dL POC Hgb (14.0-18.0) g/dl Hct 31.7 L (42-52) % POC Hct (42-52) % MCV 86.1 (80-100) fL MCH 29.1 (25-34) pg MCHC 33.8 (32-36) g/dL RDW Std Deviation 81.8 H (36.4-46.3) fL RDW Coeff of Tevin 26.8 H (11.5-14.5) % Plt Count 163 (130-400) K/uL Immature Gran % (Auto) 0.2 % Neut % (Auto) 87.3 % Lymph % (Auto) 7.5 % [place] % (Auto) 4.8 % Eos % (Auto) 0.0 % Baso % (Auto) 0.2 % Neut # (Auto) 9.14 H (1.4-6.5) K/uL Lymph # (Auto) 0.79 L (1.2-3.4) K/uL [place] # (Auto) 0.50 (0.11-0.59) K/uL Eos # (Auto) 0.00 (0-0.5) K/uL Baso # (Auto) 0.02 (0-0.2) K/uL Immature Gran # (Auto) 0.02 (0.00-0.02) K/uL Polychromasia 1+ Anisocytosis Present Macrocytosis Present Pappenheimer Bodies 1+ Target Cells 2+ Echinocytes 1+ PT 27.5 H (9.0-12.0) Seconds INR 2.8 H (0.9-1.1) APTT 28.8 (21.0-31.0) Seconds PTT Ratio 1.0 POC Sodium (135-144) mmol/L Sodium 140 (136-145) mmol/L POC Potassium (3.3-5.0) mmol/L Potassium 3.0 L (3.5-5.1) mmol/L POC Chloride (101-112) mmol/L Chloride 112 H (98-107) mmol/L Carbon Dioxide 17 L (21-32) mmol/L POC Total CO2 (24-31) mmol/L Anion Gap 11.0 (3-11) POC Anion Gap (16-25) mmol/L POC BUN (7-18) mg/dl BUN 12 (7-18) mg/dl Creatinine 0.78 (0.6-1.4) mg/dl POC Creatinine (0.6-1.3) mg/dl Est Cr Clr Drug Dosing 63.0 ml/min Est GFR ( Amer) 112.9 Est GFR (Non-Af Amer) 97.4 BUN/Creatinine Ratio 15.7 (10-20) Glucose 47 L* (70-99) mg/dl POC Glucose (70-99) mg/dl POC Glucose (other) (70-99) mg/dl Lactate (0.4-2.0) mmol/L Calcium < 5.0 L* (8.5-10.1) mg/dl POC Ioniz Calcium Malaika (1.12-1.32) mmol/l Magnesium 1.2 L (1.8-2.4) mg/dl Total Bilirubin 0.3 (0.2-1) mg/dl AST 142 H (15-37) U/L ALT 113 H (12-78) U/L Alkaline Phosphatase 376 H (45-117) U/L Troponin I < 0.015 (0-0.045) ng/ml Total Protein 6.7 (6.4-8.2) gm/dl Albumin 2.2 L (3.4-5.0) gm/dl Globulin 4.5 H (2.5-4.0) gm/dl Albumin/Globulin Ratio 0.5 L (0.9-2) Lipase (73-393) U/L TSH 6.470 H (0.300-4.500) uIu/ml Free T4 1.35 (0.8-1.6) ng/dl PTH Intact (18.4-80.1) pg/ml COVID-19 Eval Order SARS-CoV-2 (PCR) (Negative) Influenza Type A (PCR) (Neg) Influenza Type B (PCR) (Neg) RSV (RT-PCR) (Neg) 03/11/20 03/11/20 03/11/20 Range/Units 13:55 14:00 14:00 WBC (4.8-10.8) K/uL RBC (4.7-6.1) M/uL Hgb (14.0-18.0) g/dL POC Hgb (14.0-18.0) g/dl Hct (42-52) % POC Hct (42-52) % MCV (80-100) fL MCH (25-34) pg MCHC (32-36) g/dL RDW Std Deviation (36.4-46.3) fL RDW Coeff of Tevin (11.5-14.5) % Plt Count (130-400) K/uL Immature Gran % (Auto) % Neut % (Auto) % Lymph % (Auto) % [place] % (Auto) % Eos % (Auto) % Baso % (Auto) % Neut # (Auto) (1.4-6.5) K/uL Lymph # (Auto) (1.2-3.4) K/uL [place] # (Auto) (0.11-0.59) K/uL Eos # (Auto) (0-0.5) K/uL Baso # (Auto) (0-0.2) K/uL Immature Gran # (Auto) (0.00-0.02) K/uL Polychromasia Anisocytosis Macrocytosis Pappenheimer Bodies Target Cells Echinocytes PT (9.0-12.0) Seconds INR (0.9-1.1) APTT (21.0-31.0) Seconds PTT Ratio POC Sodium (135-144) mmol/L Sodium (136-145) mmol/L POC Potassium (3.3-5.0) mmol/L Potassium (3.5-5.1) mmol/L POC Chloride (101-112) mmol/L Chloride (98-107) mmol/L Carbon Dioxide (21-32) mmol/L POC Total CO2 (24-31) mmol/L Anion Gap (3-11) POC Anion Gap (16-25) mmol/L POC BUN (7-18) mg/dl BUN (7-18) mg/dl Creatinine (0.6-1.4) mg/dl POC Creatinine (0.6-1.3) mg/dl Est Cr Clr Drug Dosing ml/min Est GFR ( Amer) Est GFR (Non-Af Amer) BUN/Creatinine Ratio (10-20) Glucose (70-99) mg/dl POC Glucose (70-99) mg/dl POC Glucose (other) (70-99) mg/dl Lactate (0.4-2.0) mmol/L Calcium (8.5-10.1) mg/dl POC Ioniz Calcium Malaika (1.12-1.32) mmol/l Magnesium (1.8-2.4) mg/dl Total Bilirubin (0.2-1) mg/dl AST (15-37) U/L ALT (12-78) U/L Alkaline Phosphatase (45-117) U/L Troponin I (0-0.045) ng/ml Total Protein (6.4-8.2) gm/dl Albumin (3.4-5.0) gm/dl Globulin (2.5-4.0) gm/dl Albumin/Globulin Ratio (0.9-2) Lipase (73-393) U/L TSH (0.300-4.500) uIu/ml Free T4 (0.8-1.6) ng/dl PTH Intact 359.5 H (18.4-80.1) pg/ml COVID-19 Eval Order CovFluRsv at [facility] SARS-CoV-2 (PCR) POSITIVE A* (Negative) Influenza Type A (PCR) Negative (Neg) Influenza Type B (PCR) Negative (Neg) RSV (RT-PCR) Negative (Neg) 03/11/20 03/11/20 03/11/20 Range/Units 14:35 16:30 16:37 WBC (4.8-10.8) K/uL RBC (4.7-6.1) M/uL Hgb (14.0-18.0) g/dL POC Hgb 11.9 L (14.0-18.0) g/dl Hct (42-52) % POC Hct 35 L (42-52) % MCV (80-100) fL MCH (25-34) pg MCHC (32-36) g/dL RDW Std Deviation (36.4-46.3) fL RDW Coeff of Tevin (11.5-14.5) % Plt Count (130-400) K/uL Immature Gran % (Auto) % Neut % (Auto) % Lymph % (Auto) % [place] % (Auto) % Eos % (Auto) % Baso % (Auto) % Neut # (Auto) (1.4-6.5) K/uL Lymph # (Auto) (1.2-3.4) K/uL [place] # (Auto) (0.11-0.59) K/uL Eos # (Auto) (0-0.5) K/uL Baso # (Auto) (0-0.2) K/uL Immature Gran # (Auto) (0.00-0.02) K/uL Polychromasia Anisocytosis Macrocytosis Pappenheimer Bodies Target Cells Echinocytes PT (9.0-12.0) Seconds INR (0.9-1.1) APTT (21.0-31.0) Seconds PTT Ratio POC Sodium 139 (135-144) mmol/L Sodium (136-145) mmol/L POC Potassium 4.9 (3.3-5.0) mmol/L Potassium (3.5-5.1) mmol/L POC Chloride 107 (101-112) mmol/L Chloride (98-107) mmol/L Carbon Dioxide (21-32) mmol/L POC Total CO2 18 L (24-31) mmol/L Anion Gap (3-11) POC Anion Gap 19.0 (16-25) mmol/L POC BUN 15 (7-18) mg/dl BUN (7-18) mg/dl Creatinine (0.6-1.4) mg/dl POC Creatinine 0.7 (0.6-1.3) mg/dl Est Cr Clr Drug Dosing ml/min Est GFR ( Amer) Est GFR (Non-Af Amer) BUN/Creatinine Ratio (10-20) Glucose (70-99) mg/dl POC Glucose 80 (70-99) mg/dl POC Glucose (other) 48 L* (70-99) mg/dl Lactate 0.9 (0.4-2.0) mmol/L Calcium (8.5-10.1) mg/dl POC Ioniz Calcium Malaika 0.51 L* (1.12-1.32) mmol/l Magnesium (1.8-2.4) mg/dl Total Bilirubin (0.2-1) mg/dl AST (15-37) U/L ALT (12-78) U/L Alkaline Phosphatase (45-117) U/L Troponin I (0-0.045) ng/ml Total Protein (6.4-8.2) gm/dl Albumin (3.4-5.0) gm/dl Globulin (2.5-4.0) gm/dl Albumin/Globulin Ratio (0.9-2) Lipase (73-393) U/L TSH (0.300-4.500) uIu/ml Free T4 (0.8-1.6) ng/dl PTH Intact (18.4-80.1) pg/ml COVID-19 Eval Order SARS-CoV-2 (PCR) (Negative) Influenza Type A (PCR) (Neg) Influenza Type B (PCR) (Neg) RSV (RT-PCR) (Neg) 03/11/20 03/11/20 03/12/20 Range/Units 16:37 18:34 00:14 WBC (4.8-10.8) K/uL RBC (4.7-6.1) M/uL Hgb (14.0-18.0) g/dL POC Hgb (14.0-18.0) g/dl Hct (42-52) % POC Hct (42-52) % MCV (80-100) fL MCH (25-34) pg MCHC (32-36) g/dL RDW Std Deviation (36.4-46.3) fL RDW Coeff of Tevin (11.5-14.5) % Plt Count (130-400) K/uL Immature Gran % (Auto) % Neut % (Auto) % Lymph % (Auto) % [place] % (Auto) % Eos % (Auto) % Baso % (Auto) % Neut # (Auto) (1.4-6.5) K/uL Lymph # (Auto) (1.2-3.4) K/uL [place] # (Auto) (0.11-0.59) K/uL Eos # (Auto) (0-0.5) K/uL Baso # (Auto) (0-0.2) K/uL Immature Gran # (Auto) (0.00-0.02) K/uL Polychromasia Anisocytosis Macrocytosis Pappenheimer Bodies Target Cells Echinocytes PT (9.0-12.0) Seconds INR (0.9-1.1) APTT (21.0-31.0) Seconds PTT Ratio POC Sodium (135-144) mmol/L Sodium 139 141 (136-145) mmol/L POC Potassium (3.3-5.0) mmol/L Potassium 2.0 L* D 2.1 L* (3.5-5.1) mmol/L POC Chloride (101-112) mmol/L Chloride 112 H 113 H (98-107) mmol/L Carbon Dioxide 17 L 20 L (21-32) mmol/L POC Total CO2 (24-31) mmol/L Anion Gap 10.0 8.0 (3-11) POC Anion Gap (16-25) mmol/L POC BUN (7-18) mg/dl BUN 11 11 (7-18) mg/dl Creatinine 0.67 0.67 (0.6-1.4) mg/dl POC Creatinine (0.6-1.3) mg/dl Est Cr Clr Drug Dosing 73.4 73.4 ml/min Est GFR ( Amer) 120.2 120.2 Est GFR (Non-Af Amer) 103.7 103.7 BUN/Creatinine Ratio 15.9 16.1 (10-20) Glucose 75 89 (70-99) mg/dl POC Glucose 115 H (70-99) mg/dl POC Glucose (other) (70-99) mg/dl Lactate (0.4-2.0) mmol/L Calcium < 5.0 L* < 5.0 L* (8.5-10.1) mg/dl POC Ioniz Calcium Malaika (1.12-1.32) mmol/l Magnesium (1.8-2.4) mg/dl Total Bilirubin (0.2-1) mg/dl AST (15-37) U/L ALT (12-78) U/L Alkaline Phosphatase (45-117) U/L Troponin I (0-0.045) ng/ml Total Protein (6.4-8.2) gm/dl Albumin (3.4-5.0) gm/dl Globulin (2.5-4.0) gm/dl Albumin/Globulin Ratio (0.9-2) Lipase 292 (73-393) U/L TSH (0.300-4.500) uIu/ml Free T4 (0.8-1.6) ng/dl PTH Intact (18.4-80.1) pg/ml COVID-19 Eval Order SARS-CoV-2 (PCR) (Negative) Influenza Type A (PCR) (Neg) Influenza Type B (PCR) (Neg) RSV (RT-PCR) (Neg) Diagnostic Findings CT angio chest PE protocol CT DOSE: 232.85 mGycm HISTORY: 59 years-old Male with sob eval for PE. Acute shortness of breath TECHNIQUE: Multiple CTA images of the chest were obtained after the intravenous administration of 90 ml Optiray 320. Coronal and sagittal MIPS were obtained from the axial data set and were submitted for review. All measurements were obtained according to NASCET criteria. A dose lowering technique was utilized adhering to the principles of ALARA. COMPARISON: CTA chest 08/05/2017 FINDINGS: CTA: Heart is normal in size. No pericardial effusion. No thoracic aortic aneurysm or dissection. Patency of the imaged great vessels. Pulmonary artery is opacified to the level of the subsegmental branches and demonstrates no filling defects to suggest thromboembolic disease. CT CHEST: Unremarkable thyroid. No adenopathy. No pneumothorax or pleural effusion. Mucous plugging is noted within the left lower lobe. Mild groundglass opacities of the right middle lobe and lingula. No overt pulmonary edema. Nonspecific distal esophageal wall thickening. Debris-filled stomach. Hepatic steatosis. Unremarkable soft tissues. Degenerative changes of the spine and shoulders. There is no acute fracture. IMPRESSION: 1. No evidence of pulmonary emboli. 2. Groundglass opacities of the right middle lobe and lingula are suspicious for an infectious or inflammatory pneumonitis. 3. Mucous plugging, most pronounced in the left lower lobe. 4. No pleural effusion or adenopathy. ACT 112: Negative or not required by law. The above report was generated using voice recognition software. It may contain grammatical, syntax or spelling errors. Electronically signed by: Pradip Garcia M.D. 03/11/2020 4:22 PM Dictated: 03/11/20 1603Transcribed: 03/11/20 1603 Supervising Physician Co-Signing Physician Notes Patient seen and examined, chart reviewed, case discussed with Dr. Baldwin and I agree with his assessment and plan as documented above. Briefly, patient is a 59yo incarcerated male presenting with multiple electrolyte abnormalities and Covid-19 infection. History of Celiac disease. He has longstanding history of hypokalemia, hypomagnesemia and hypocalcemia. He presents today with worsening of these electrolyte abnormalities in setting of Covid-19 infection - worsening muscle aches, cramps and contractures. Patient has been unable to tolerated PO therefore has missed his oral supplements. Patients muscle contractures have improved with administration of IV calcium On exam he is afebrile, HD stable, NAD. No respiratory distress. Adequate oxygenation on room air. He appears cachectic, older than stated age Skin - no rash, lesions, jaundice HEENT - NC/AT, PERRL, EOMI, dry MM Heart - +S1/S2, regular, no m/r/g Lungs - CTA Abd - +BS, soft, NT/ND Ext - No edema Labs and images reviewed. Assessment/Plan - 59yo C male with history of Celliac disease presenting with multiple electrolyte derangements, Covid-19+ 1. Covid-19 - patient presently with no hypoxia. Continue to monitor 2. Hypokalemia - K=2 - supplementation with IV and PO. Trend chemistry q 2 hours. Patient with PIV in place which limits administration of IV K-riders to 10Meq 3. Hypomagnesemia - Mg=1.2 - supplementation with IV and PO. Trend q 2 hours. 3. Hypocalcemia - ICa=0.51, patient with contractures which have improved with calcium gluconate. Continue supplementation. Monitor q 2 hours 4. Check PO4 level and replete as needed. Patient is at risk for refeeding syndrome. Monitor Thiamine administered 200mg IV. Trend glucose. D5W at 80mL/hr Elevated LFTs and INR. Suspect vitamin K deficiency secondary to nutritional deficiency as well as Covid-19 infection. Will repeat labs in AM. Administer Vitamin K PO -Remainder of plan as above -Low threshold for MICU transfer should patient fail to improve or clinically worsen -Telemetry monitoring Resident Activity Tracking Resident Involvement: Resident Care Provided Care Provided: Adult Hospital Medicine (1) Anemia Anemia type: unspecified type Qualified Code(s): D64.9 - Anemia, unspecified
[2020-03-11] MEDS ORDERED: THIAMINE HCL 200 MG in SODIUM CHLORIDE 0.9% 50 ML IV STA (23:46)
[2020-03-11] MEDS ORDERED: DEXTROSE 5% 1,000 ML IV SCH (23:46)
[2020-03-11] MEDS ORDERED: ACETAMINOPHEN 325 MG TAB PO PRN (23:46)
[2020-03-12] MEDS ORDERED: PHYTONADIONE 5 MG TAB PO ONE (00:04)
[2020-03-12] MEDS ORDERED: ACETAMINOPHEN 500 MG TAB PO PRN (00:17)
[2020-03-12] MEDS: POTASSIUM CHLORIDE / WTR 10 MEQ/100 ML PLCT IV SCH ×8 (00:41→07:48)
[2020-03-12] MEDS: MAGNESIUM SULFATE / D5W 1 GM/100 ML BAG IV SCH ×3 (00:46→03:29)
[2020-03-12] MEDS: POTASSIUM CHLORIDE CRTAB 20 MEQ TABCR PO SCH ×4 (00:49→12:30)
[2020-03-12] MEDS: TAMSULOSIN HCL 0.4 MG CAP PO SCH ×3 (00:50→20:35)
[2020-03-12] MEDS: FOLIC ACID 1 MG TAB PO SCH ×2 (00:50→20:35)
[2020-03-12] MEDS: MAGNESIUM OXIDE 400 MG TAB PO SCH ×3 (00:50→20:35)
[2020-03-12] MEDS: SERTRALINE HCL 50 MG TABLET PO SCH ×2 (00:51→20:34)
[2020-03-12] MEDS: MIRTAZAPINE SOLTAB 15 MG PO SCH ×2 (00:52→20:35)
[2020-03-12] MEDS: FAMOTIDINE 20 MG TAB PO SCH ×3 (00:52→20:34)
[2020-03-12] MEDS: CALCIUM CARBONATE 1250MG TAB PO SCH ×3 (00:53→20:35)
--- NOTE | 2020-03-12 00:53 | Billing Data ---
Date of Service March 11, 2020 Coding Level of Care Code 57118 Initial Inpt Care Lvl 3
[2020-03-12] MEDS: ENOXAPARIN INJ 40 MG/0.4 ML SYR SQ SCH ×3 (00:54→20:35)
[2020-03-12 01:23] LABS: BUN Creatinine Ratio 12.6 (10-20); Blood Urea Nitrogen 9 mg/dl (7-18); Carbon Dioxide 23 mmol/L (21-32); Chloride 111 mmol/L (98-107); Creatinine Clr Calc Pharmacy 67.7 ml/min; Est GFR (African American) 118.1; Est GFR (Non-African American) 101.9; Glucose 83 mg/dl (70-99); Phosphorus 1.6 mg/dl (2.5-4.9); Potassium 2.2 mmol/L (3.5-5.1); Sodium 139 mmol/L (136-145)
[2020-03-12 01:24] LABS: Calcium < 5.0 mg/dl (8.5-10.1)
[2020-03-12] MEDS ORDERED: POTASSIUM PHOS 3 MMOL/1 ML INFUSION IV STA (01:39)
[2020-03-12] MEDS ORDERED: CALCIUM GLUCONATE 10% 1,000 MG in SODIUM CHLORIDE 0.9% 50 ML IV ONE (01:42)
[2020-03-12 01:49] LABS: Appearance Urine Clear (Clear); Bacteria Urine Automated Negative (Negative); Bilirubin Urine Negative (Negative); Blood Urine 1+ (Negative); Color Urine Yellow; Glucose Urine UA Negative (Negative); Ketones Urine Negative (Negative); Leukocyte Esterase Urine Negative (Negative); Nitrite Urine Negative (Negative); Protein Urine Negative (Negative); RBC Urine Automated 0-4 /hpf (0-4); Specific Gravity Urine 1.022 (1.000-1.030); Urobilinogen Urine Negative (Negative)
[2020-03-12] MEDS ORDERED: POTASSIUM PHOSPHATE 15 MMOL in SODIUM CHLORIDE 0.9% 250 ML IV ONE (02:15)
[2020-03-12 03:22] LABS: BUN Creatinine Ratio 12.2 (10-20); Blood Urea Nitrogen 9 mg/dl (7-18); Calcium < 5.0 mg/dl (8.5-10.1); Carbon Dioxide 23 mmol/L (21-32); Chloride 112 mmol/L (98-107); Creatinine Clr Calc Pharmacy 64.9 ml/min; Est GFR (Non-African American) 100.1; Glucose 115 mg/dl (70-99); Potassium 2.3 mmol/L (3.5-5.1); Sodium 140 mmol/L (136-145)
[2020-03-12] MEDS: LEVOTHYROXINE SODIUM 25 MCG TABLET PO SCH (05:50)
[2020-03-12 06:51] LABS: BUN Creatinine Ratio 12.5 (10-20); Blood Urea Nitrogen 8 mg/dl (7-18); Carbon Dioxide 18 mmol/L (21-32); Chloride 114 mmol/L (98-107); Creatinine Clr Calc Pharmacy 75.2 ml/min; Est GFR (African American) 123.3; Est GFR (Non-African American) 106.4; Glucose 108 mg/dl (70-99); Potassium 3.1 mmol/L (3.5-5.1); Sodium 139 mmol/L (136-145)
[2020-03-12 06:53] LABS: Calcium < 5.0 mg/dl (8.5-10.1)
[2020-03-12 06:57] LABS: Alanine Aminotransferase 123 U/L (12-78); Alkaline Phosphatase 357 U/L (45-117); Aspartate Aminotransferase 177 U/L (15-37); Bilirubin Direct < 0.1 mg/dl (0-0.2); Bilirubin,Total 0.3 mg/dl (0.2-1); Magnesium 2.5 mg/dl (1.8-2.4); Phosphorus 2.4 mg/dl (2.5-4.9); Total Protein 5.9 gm/dl (6.4-8.2)
[2020-03-12] MEDS ORDERED: CALCIUM GLUCONATE 10% 2,000 MG in SODIUM CHLORIDE 0.9% 50 ML IV ONE ×2 (07:15→11:30)
[2020-03-12] MEDS: BUDESONIDE EC 3 MG CAP PO SCH (07:58)
[2020-03-12] MEDS: POT PHOSPHATE MONOBASIC W/ SOD TAB PO SCH ×4 (07:58→20:34)
[2020-03-12] MEDS: LACTASE 3000 UNIT TAB PO SCH ×3 (07:58→16:38)
[2020-03-12] MEDS: CHOLECALCIFEROL 1,000 UNITS 25 MCG TAB PO SCH (07:59)
[2020-03-12] MEDS: THIAMINE HCL 100 MG TAB PO SCH ×2 (08:00→20:34)
[2020-03-12] MEDS: PANCREAZE (LIPASE 10,500U) CAP PO SCH ×3 (08:41→16:38)
[2020-03-12] MEDS: THIAMINE HCL 100 MG in SYRINGE 9 ML IV SCH (08:41)
--- NOTE | 2020-03-12 08:42 | Hospitalist Progress Note ---
Date of Service March 12, 2020 Assessment & Plan (1) Pneumonia due to 2019-nCoV: Rikki Pascual 59yo inmate with a PMHx of prior severe electrolyte derangement with hypomagnesemia, hypokalemia, and hypercalcemia, A. fib, hypotension and celiac disease who presents with 3 days of of worsened muscle aches, cramps, and hand contractures with pain who was found to have severe electrolyte abnormalities and Covid positive on admission. Severe electrolyte abnormalities Patient with longstanding history, unable to take p.o. repletion in the setting of acute illness. Suspect combination of nutritional deficiency with celiac worsened with acute illness. May consider nephro consult for electrolyte wasting. Admitting sodium 141. Trend. Admitting potassium 2.0. Magnesium as also profoundly low . replete with large amounts in ER corected calcium 7.2 will start calcium infusion , CaCarbonate 500mg PO BID. Magnesium repletion as above. Vitamin D pending, 5000 IU daily - phosphorus is low and dayne be replete - Glucose checks with BMP, POC PRN Hypertension Baseline low blood pressure in low 100s to 90s on prior review Covid positive continues without hypoxia. Dexamethasone, remdesivir, convalescent plasma not indicated Follow clinically at this time Supplemental oxygen as needed Tylenol 650 mg every 4 hours as needed for fever - CTA: No evidence of pulmonary emboli. Groundglass opacities of the right middle lobe and lingula are suspicious for an infectious or inflammatory pneumonitis. Mucous plugging, most pronounced in the left lower lobe. No pleural effusion or adenopathy. Covid DVT prophylaxis as below Hypothyroidism Continue Synthroid Celiac Gluten-free diet Continue budesonide Depression Continue Remeron nightly Continue sertraline daily Past history of paroxysmal A. fib Normal sinus rhythm at time of assessment Normal rate at time of assessment Follow clinically Not on anticoagulation DVT prophylaxis: COVID Lovenox dosing. Cr wnl. Diet: Regular, gluten-free. IVFM as above. Defer additional bolus/maintenance at thsi time given high total volume infusion of electrolyte repletion Disposition: PCU CODE STATUS: Full code (2) Anemia: (3) Hypophosphatemia: (4) B12 deficiency: (5) Elevated INR: (6) Metabolic acidosis: (7) Hypomagnesemia: (8) Hypokalemia: (9) Hypothyroid: (10) Severe protein-calorie malnutrition: Admission and Anticipated Discharge Date Admission Date: March 11, 2020 Subjective pt is without distress, he is eating lunch no further tetany Review of Systems Review of Systems: Mild to moderate distress and significant fatigue no headache, blurry or double vision no speech or swallowing issues no chest pain, pressure or palpitations no shortness of breath, cough or wheezes no abdominal pain, nausea or vomiting, diarrhea or constipation no dysuria, hematuria or frequency no focal joint pain or swelling no back pain, CVA tenderness or radicular pain no bruising, bleeding or rashes no focal signs of weakness or numbness or altered sensation no complaints of anxiety or depression.. Physical Exam Physical Exam: The patient appeared severely malnourished the week Vital signs as documented. Head exam is normocephalic atraumatic no scleral icterus Neck is without JVD, thyromegaly, or carotid bruits. Lungs are clear to auscultation, no focal loss of breath sounds Cardiac exam, Rhythm is regular.. No murmurs, rubs or gallops. Abdominal exam reveals normal bowel sounds, soft non tender, no masses Extremities are nonedematous and both pedal pulses are present Neurologic exam is alert and oriented, no further spasm or tetany, no focal loss of strength or sensation Skin is without bruises or rashes Psychologically is without concerns for anxiety or depression. Results & Data Results & Data ([facility]) Vital Signs (Past 12 Hours) Vital Signs Temp Pulse Pulse Resp BP BP Pulse Ox 03/12/20 07:45 97.9 F 77 17 105/63 100 03/12/20 05:24 97.7 F 69 16 102/70 99 03/12/20 00:57 97.9 F 73 16 104/72 99 03/11/20 23:10 99 03/11/20 23:01 99 03/11/20 23:00 98/64 L 99 03/11/20 22:50 99 03/11/20 22:40 69 98 03/11/20 22:31 70 98 03/11/20 22:30 68 94/66 L 98 03/11/20 22:20 69 98 03/11/20 22:10 71 100 03/11/20 22:01 69 100 03/11/20 22:00 68 100/64 100 03/11/20 21:50 99 03/11/20 21:40 99 03/11/20 21:31 99 03/11/20 21:30 104/68 99 03/11/20 21:20 98 03/11/20 21:10 64 16 99 03/11/20 21:01 64 15 99 03/11/20 21:00 68 16 105/72 99 03/11/20 20:50 81 21 97 03/11/20 20:48 84 18 98/69 L PG Care Time/CCT Total # of Minutes Spent Total Time Spent with Patient: Total time spent is greater than 50% in coordination of care (as documented) at patient's floor/unit and/or counseling patient: Coding Level of Care Code 03700 Subseq Hosp Care Lvl 3 Diagnoses Pneumonia due to 2019-nCoV U07.1; J12.82 Anemia D64.9 Anemia type: unspecified type Hypophosphatemia E83.39 B12 deficiency E53.8 Elevated INR R79.1 Metabolic acidosis E87.2 Hypomagnesemia E83.42 Hypokalemia E87.6 Hypothyroid E03.9 Severe protein-calorie malnutrition E43 (1) Anemia Anemia type: unspecified type Qualified Code(s): D64.9 - Anemia, unspecified
[2020-03-12] MEDS: POTASSIUM CHLORIDE 20 MEQ in SODIUM CHLORIDE 0.45 % 1,000 ML IV SCH ×2 (09:28→18:10)
[2020-03-12 10:43] LABS: BUN Creatinine Ratio 10.2 (10-20); Calcium 5.1 mg/dl (8.5-10.1); Creatinine Clr Calc Pharmacy 76.5 ml/min; Est GFR (African American) 124.1; Est GFR (Non-African American) 107.1; Potassium 3.4 mmol/L (3.5-5.1)
[2020-03-12 15:37] LABS: BUN Creatinine Ratio 10.1 (10-20); Calcium 5.6 mg/dl (8.5-10.1); Est GFR (African American) 125.8; Est GFR (Non-African American) 108.5; Phosphorus 1.6 mg/dl (2.5-4.9); Potassium 3.7 mmol/L (3.5-5.1)
[2020-03-12] MEDS: DEXTROSE 5% IV SCH (16:35)
[2020-03-12] MEDS: CALCIUM GLUCONATE IV SCH (16:35)
[2020-03-13] MEDS: LEVOTHYROXINE SODIUM 25 MCG TABLET PO SCH (05:53)
[2020-03-13 07:28] LABS: Albumin Globulin Ratio 0.5 (0.9-2); Albumin Level 1.8 gm/dl (3.4-5.0); BUN Creatinine Ratio 9.3 (10-20); Bilirubin,Total 0.5 mg/dl (0.2-1); Creatinine Clr Calc Pharmacy 98.8 ml/min; Est GFR (African American) 137.9; Est GFR (Non-African American) 118.9; Globulin 3.6 gm/dl (2.5-4.0); Potassium 3.5 mmol/L (3.5-5.1); Total Protein 5.4 gm/dl (6.4-8.2)
[2020-03-13] MEDS: POTASSIUM CHLORIDE 20 MEQ in SODIUM CHLORIDE 0.45 % 1,000 ML IV SCH ×2 (07:49→20:59)
[2020-03-13] MEDS: LACTASE 3000 UNIT TAB PO SCH ×3 (07:51→16:37)
[2020-03-13] MEDS: PANCREAZE (LIPASE 10,500U) CAP PO SCH ×3 (07:52→16:37)
[2020-03-13] MEDS: BUDESONIDE EC 3 MG CAP PO SCH (07:52)
[2020-03-13] MEDS: MAGNESIUM OXIDE 400 MG TAB PO SCH ×2 (07:53→21:00)
[2020-03-13] MEDS: TAMSULOSIN HCL 0.4 MG CAP PO SCH ×2 (07:53→20:59)
[2020-03-13] MEDS: CALCIUM CARBONATE 1250MG TAB PO SCH ×2 (07:54→21:00)
[2020-03-13] MEDS: POT PHOSPHATE MONOBASIC W/ SOD TAB PO SCH ×4 (07:54→21:01)
[2020-03-13] MEDS: FAMOTIDINE 20 MG TAB PO SCH ×2 (07:54→21:01)
[2020-03-13] MEDS: THIAMINE HCL 100 MG TAB PO SCH ×2 (07:55→21:01)
[2020-03-13] MEDS: CHOLECALCIFEROL 1,000 UNITS 25 MCG TAB PO SCH (07:58)
[2020-03-13] MEDS: THIAMINE HCL 100 MG in SYRINGE 9 ML IV SCH (07:58)
[2020-03-13] MEDS ORDERED: POTASSIUM PHOS 3 MMOL/1 ML INFUSION IV STA (09:40)
[2020-03-13] MEDS ORDERED: POTASSIUM PHOSPHATE 21 MMOL in SODIUM CHLORIDE 0.9% 500 ML IV ONE (10:00)
[2020-03-13] MEDS: ENOXAPARIN INJ 40 MG/0.4 ML SYR SQ SCH ×2 (11:26→21:02)
--- NOTE | 2020-03-13 13:36 | Electrocardiogram Report ---
Test Reason : Blood Pressure : / mmHG Vent. Rate : 128 BPM Atrial Rate : 131 BPM P-R Int : 000 ms QRS Dur : 060 ms QT Int : 334 ms P-R-T Axes : 000 079 067 degrees QTc Int : 487 ms Poor data quality, interpretation may be adversely affected Sinus rhythm Left ventricular hypertrophy with repolarization abnormality Abnormal ECG When compared with ECG of 22-SEP-2019 11:16, Inverted T waves have replaced nonspecific T wave abnormality in Anterior leads Confirmed by Silvio Ross ([id number]) on 03/13/2020 1:36:02 PM Referred By: Mike CHEUNG Confirmed By:Silvio Ross
[2020-03-13] MEDS: CALCIUM GLUCONATE IV SCH (14:13)
[2020-03-13] MEDS: DEXTROSE 5% IV SCH (14:13)
--- NOTE | 2020-03-13 15:52 | Hospitalist Progress Note ---
Date of Service March 13, 2020 Assessment & Plan (1) Pneumonia due to 2019-nCoV: Rikki Pascual 59yo inmate with a PMHx of prior severe electrolyte derangement with hypomagnesemia, hypokalemia, and hypercalcemia, A. fib, hypotension and celiac disease who presents with 3 days of of worsened muscle aches, cramps, and hand contractures with pain who was found to have severe electrolyte abnormalities and Covid positive on admission. Severe electrolyte abnormalities Patient with longstanding history, unable to take p.o. repletion in the setting of acute illness. Suspect combination of nutritional deficiency with celiac worsened with acute illness. Hypomagnesemia did affect his calcium also, thiw as replete and continues to be monitored corrected calcium 7.8 completed calcium infusion , CaCarbonate 500mg PO BID. Magnesium repletion as above. Vitamin D pending, 5000 IU daily - phosphorus is low and will be replete - Glucose checks with BMP, POC PRN Hypertension Baseline low blood pressure in low 100s to 90s on prior review Covid positive continues without hypoxia. Dexamethasone, remdesivir, convalescent plasma not indicated Supplemental oxygen as needed Tylenol 650 mg every 4 hours as needed for fever - CTA: No evidence of pulmonary emboli. Groundglass opacities of the right middle lobe and lingula are suspicious for an infectious or inflammatory pneumonitis. Mucous plugging, most pronounced in the left lower lobe. No pleural effusion or adenopathy. Covid DVT prophylaxis as below Hypothyroidism Continue Synthroid Celiac Gluten-free diet Continue budesonide Depression Continue Remeron nightly Continue sertraline daily Past history of paroxysmal A. fib Normal sinus rhythm at time of assessment Normal rate at time of assessment Follow clinically Not on anticoagulation DVT prophylaxis: COVID Lovenox dosing. Cr wnl. Diet: Regular, gluten-free. IVFM as above. Defer additional bolus/maintenance at this time given high total volume infusion of electrolyte repletion Disposition: PCU CODE STATUS: Full code (2) Anemia: (3) Hypophosphatemia: (4) B12 deficiency: (5) Elevated INR: (6) Metabolic acidosis: (7) Hypomagnesemia: (8) Hypokalemia: (9) Hypothyroid: (10) Severe protein-calorie malnutrition: Admission and Anticipated Discharge Date Admission Date: March 11, 2020 Subjective pt is without distress, he is improving and eating without issue Review of Systems Review of Systems: Mild to moderate distress and significant fatigue no headache, blurry or double vision no speech or swallowing issues no chest pain, pressure or palpitations no shortness of breath, cough or wheezes no abdominal pain, nausea or vomiting, diarrhea or constipation no dysuria, hematuria or frequency no focal joint pain or swelling no back pain, CVA tenderness or radicular pain no bruising, bleeding or rashes no focal signs of weakness or numbness or altered sensation no complaints of anxiety or depression.. Physical Exam Physical Exam: The patient appeared severely malnourished the weak, but improving Vital signs as documented. Head exam is normocephalic atraumatic no scleral icterus Neck is without JVD, thyromegaly, or carotid bruits. Lungs are clear to auscultation, no focal loss of breath sounds Cardiac exam, Rhythm is regular.. No murmurs, rubs or gallops. Abdominal exam reveals normal bowel sounds, soft non tender, no masses Extremities are nonedematous and both pedal pulses are present Neurologic exam is alert and oriented, no further spasm or tetany, no focal loss of strength or sensation Skin is without bruises or rashes Psychologically is without concerns for anxiety or depression. Results & Data Results & Data ([facility]) Vital Signs (Past 12 Hours) Vital Signs Temp Pulse Pulse Resp BP Pulse Ox 03/13/20 15:39 98.1 F 82 20 135/71 97 03/13/20 12:33 98.1 F 70 19 104/60 95 03/13/20 08:03 98.1 F 58 L 20 98/52 L 97 03/13/20 08:00 57 L 03/13/20 04:21 97.7 F 65 20 94/51 L 96 PG Care Time/CCT Total # of Minutes Spent Total Time Spent with Patient: Total time spent is greater than 50% in coordination of care (as documented) at patient's floor/unit and/or counseling patient: Coding Level of Care Code 35291 Subseq Hosp Care Lvl 2 Diagnoses Pneumonia due to 2019-nCoV U07.1; J12.82 Anemia D64.9 Anemia type: unspecified type Hypophosphatemia E83.39 B12 deficiency E53.8 Elevated INR R79.1 Metabolic acidosis E87.2 Hypomagnesemia E83.42 Hypokalemia E87.6 Hypothyroid E03.9 Severe protein-calorie malnutrition E43 (1) Anemia Anemia type: unspecified type Qualified Code(s): D64.9 - Anemia, unspecified
[2020-03-13] MEDS: FOLIC ACID 1 MG TAB PO SCH (20:59)
[2020-03-13] MEDS: MIRTAZAPINE SOLTAB 15 MG PO SCH (21:01)
[2020-03-13] MEDS: SERTRALINE HCL 50 MG TABLET PO SCH (21:02)
[2020-03-14] MEDS: LEVOTHYROXINE SODIUM 75 MCG TABLET PO SCH (06:07)
[2020-03-14 06:51] LABS: Albumin Level 1.9 gm/dl (3.4-5.0); BUN Creatinine Ratio 9.6 (10-20); Calcium 6.5 mg/dl (8.5-10.1); Creatinine Clr Calc Pharmacy 100.4 ml/min; Est GFR (African American) 139.1; Potassium 3.6 mmol/L (3.5-5.1)
[2020-03-14 06:54] LABS: Albumin Globulin Ratio 0.5 (0.9-2); Bilirubin,Total 0.4 mg/dl (0.2-1); Globulin 3.9 gm/dl (2.5-4.0); Total Protein 5.8 gm/dl (6.4-8.2)
[2020-03-14] MEDS: LACTASE 3000 UNIT TAB PO SCH ×3 (07:48→16:45)
[2020-03-14] MEDS: PANCREAZE (LIPASE 10,500U) CAP PO SCH ×3 (07:48→16:45)
[2020-03-14] MEDS: BUDESONIDE EC 3 MG CAP PO SCH (07:49)
[2020-03-14] MEDS: FAMOTIDINE 20 MG TAB PO SCH ×2 (07:50→19:54)
[2020-03-14] MEDS: TAMSULOSIN HCL 0.4 MG CAP PO SCH ×2 (07:50→19:54)
[2020-03-14] MEDS: CALCIUM CARBONATE 1250MG TAB PO SCH ×2 (07:50→19:54)
[2020-03-14] MEDS: MAGNESIUM OXIDE 400 MG TAB PO SCH ×2 (07:50→19:54)
[2020-03-14] MEDS: POT PHOSPHATE MONOBASIC W/ SOD TAB PO SCH ×4 (07:51→19:55)
[2020-03-14] MEDS: THIAMINE HCL 100 MG TAB PO SCH ×2 (07:51→19:55)
[2020-03-14] MEDS: CHOLECALCIFEROL 1,000 UNITS 25 MCG TAB PO SCH (07:52)
[2020-03-14] MEDS: POTASSIUM CHLORIDE 20 MEQ in SODIUM CHLORIDE 0.45 % 1,000 ML IV SCH (10:34)
[2020-03-14] MEDS: THIAMINE HCL 100 MG in SYRINGE 9 ML IV SCH (10:39)
[2020-03-14] MEDS: ENOXAPARIN INJ 40 MG/0.4 ML SYR SQ SCH ×2 (13:14→23:48)
[2020-03-14] MEDS: CALCIUM GLUCONATE IV SCH ×2 (14:41→16:45)
[2020-03-14] MEDS: DEXTROSE 5% IV SCH ×2 (14:41→16:45)
--- NOTE | 2020-03-14 15:13 | Hospitalist Progress Note ---
Date of Service March 14, 2020 Assessment & Plan (1) Pneumonia due to 2019-nCoV: Rikki Pascual 59yo inmate with a PMHx of prior severe electrolyte derangement with hypomagnesemia, hypokalemia, and hypercalcemia, A. fib, hypotension and celiac disease who presents with 3 days of of worsened muscle aches, cramps, and hand contractures with pain who was found to have severe electrolyte abnormalities and Covid positive on admission. Severe electrolyte abnormalities Patient with longstanding history of these issues worsening if illness, unable to take p.o. repletion in the setting of acute illness. Suspect combination of nutritional deficiency with celiac worsened with acute illness. Hypomagnesemia did affect his calcium also, this as replete and continues to be monitored corrected calcium 8.2 completed calcium infusion , CaCarbonate 500mg PO BID. Vitamin D 5000 IU daily - phosphorus is low and will be replete - Glucose checks with BMP, POC PRN Hypertension Baseline low blood pressure in low 100s to 90s on prior review Covid positive continues without hypoxia. Dexamethasone, remdesivir, convalescent plasma not indicated Supplemental oxygen as needed - CTA: No evidence of pulmonary emboli. Groundglass opacities of the right middle lobe and lingula are suspicious for an infectious or inflammatory pneumonitis. Mucous plugging, most pronounced in the left lower lobe. No pleural effusion or adenopathy. Covid DVT prophylaxis as below Hypothyroidism Continue Synthroid Celiac Gluten-free diet Continue budesonide Depression Continue Remeron nightly Continue sertraline daily Past history of paroxysmal A. fib Normal sinus rhythm at this time Normal rate at time of assessment Follow clinically Not on anticoagulation DVT prophylaxis: COVID Lovenox dosing. Cr wnl. Diet: Regular, gluten-free. IVFM as above. Defer additional bolus/maintenance at this time given high total volume infusion of electrolyte repletion Disposition: PCU CODE STATUS: Full code (2) Transaminitis: Patient transient elevation of his AST and ALT without concurrent elevation of his bilirubin, alk phos is also elevated. Patient 7 no clinical signs or symptoms of abdominal discomfort of any kind his AST and ALT are coming down we will continue to monitor if they come down again on 03/05 will likely return for outpatient work-up once his Covid isolation is complete (3) Anemia: (4) Hypophosphatemia: (5) B12 deficiency: (6) Elevated INR: (7) Metabolic acidosis: (8) Hypomagnesemia: (9) Hypokalemia: (10) Hypothyroid: (11) Severe protein-calorie malnutrition: Admission and Anticipated Discharge Date Admission Date: March 11, 2020 Subjective pt is without distress, he is improving and continues eating without issue Review of Systems Review of Systems: Mild to moderate distress and significant fatigue no headache, blurry or double vision no speech or swallowing issues no chest pain, pressure or palpitations no shortness of breath, cough or wheezes no abdominal pain, nausea or vomiting, diarrhea or constipation no dysuria, hematuria or frequency no focal joint pain or swelling no back pain, CVA tenderness or radicular pain no bruising, bleeding or rashes no focal signs of weakness or numbness or altered sensation no complaints of anxiety or depression.. Physical Exam Physical Exam: The patient appeared severely malnourished the weak, but improving Vital signs as documented. Head exam is normocephalic atraumatic no scleral icterus Neck is without JVD, thyromegaly, or carotid bruits. Lungs are clear to auscultation, no focal loss of breath sounds Cardiac exam, Rhythm is regular.. No murmurs, rubs or gallops. Abdominal exam reveals normal bowel sounds abdomen feels more firm denies pain or tenderness to exam Extremities are nonedematous and both pedal pulses are present Neurologic exam is alert and oriented, no further spasm or tetany, no focal loss of strength or sensation Skin is without bruises or rashes Psychologically is without concerns for anxiety or depression. Results & Data Results & Data ([facility]) Vital Signs (Past 12 Hours) Vital Signs Temp Pulse Pulse Resp BP Pulse Ox 03/14/20 09:41 98.2 F 62 16 96/63 L 96 03/14/20 08:00 60 03/14/20 03:44 98.1 F 61 18 101/59 L 94 PG Care Time/CCT Total # of Minutes Spent Total Time Spent with Patient: Total time spent is greater than 50% in coordination of care (as documented) at patient's floor/unit and/or counseling patient: Coding Level of Care Code 71455 Subseq Hosp Care Lvl 2 Diagnoses Pneumonia due to 2019-nCoV U07.1; J12.82 Transaminitis R74.01 Anemia D64.9 Anemia type: unspecified type Hypophosphatemia E83.39 B12 deficiency E53.8 Elevated INR R79.1 Metabolic acidosis E87.2 Hypomagnesemia E83.42 Hypokalemia E87.6 Hypothyroid E03.9 Severe protein-calorie malnutrition E43 (1) Anemia Anemia type: unspecified type Qualified Code(s): D64.9 - Anemia, unspecified
[2020-03-14] MEDS: FOLIC ACID 1 MG TAB PO SCH (19:54)
[2020-03-14] MEDS: MIRTAZAPINE SOLTAB 15 MG PO SCH (19:54)
[2020-03-14] MEDS: SERTRALINE HCL 50 MG TABLET PO SCH (19:54)
[2020-03-15] MEDS: POTASSIUM CHLORIDE 20 MEQ in SODIUM CHLORIDE 0.45 % 1,000 ML IV SCH ×2 (02:11→23:32)
[2020-03-15] MEDS: LEVOTHYROXINE SODIUM 75 MCG TABLET PO SCH (05:59)
[2020-03-15 07:02] LABS: Albumin Level 1.8 gm/dl (3.4-5.0); BUN Creatinine Ratio 13.4 (10-20); Calcium 6.6 mg/dl (8.5-10.1); Creatinine Clr Calc Pharmacy 107.2 ml/min; Est GFR (African American) 142.9; Est GFR (Non-African American) 123.3; Potassium 3.4 mmol/L (3.5-5.1)
[2020-03-15 07:04] LABS: Albumin Globulin Ratio 0.5 (0.9-2); Bilirubin,Total 0.3 mg/dl (0.2-1); Globulin 3.9 gm/dl (2.5-4.0); Phosphorus 2.3 mg/dl (2.5-4.9); Total Protein 5.7 gm/dl (6.4-8.2)
[2020-03-15] MEDS ORDERED: POTASSIUM PHOS 3 MMOL/1 ML INFUSION IV STA (07:33)
[2020-03-15] MEDS ORDERED: POTASSIUM PHOSPHATE 21 MMOL in SODIUM CHLORIDE 0.9% 500 ML IV ONE (08:00)
[2020-03-15] MEDS: FAMOTIDINE 20 MG TAB PO SCH ×2 (08:14→19:50)
[2020-03-15] MEDS: MAGNESIUM OXIDE 400 MG TAB PO SCH ×2 (08:14→19:50)
[2020-03-15] MEDS: THIAMINE HCL 100 MG TAB PO SCH ×2 (08:14→19:49)
[2020-03-15] MEDS: CALCIUM CARBONATE 1250MG TAB PO SCH ×2 (08:14→19:50)
[2020-03-15] MEDS: POT PHOSPHATE MONOBASIC W/ SOD TAB PO SCH ×4 (08:14→19:49)
[2020-03-15] MEDS: CHOLECALCIFEROL 1,000 UNITS 25 MCG TAB PO SCH (08:15)
[2020-03-15] MEDS: PANCREAZE (LIPASE 10,500U) CAP PO SCH ×3 (08:15→16:42)
[2020-03-15] MEDS: BUDESONIDE EC 3 MG CAP PO SCH (08:15)
[2020-03-15] MEDS: TAMSULOSIN HCL 0.4 MG CAP PO SCH ×2 (08:15→19:50)
[2020-03-15] MEDS: LACTASE 3000 UNIT TAB PO SCH ×3 (08:16→16:41)
[2020-03-15] MEDS: THIAMINE HCL 100 MG in SYRINGE 9 ML IV SCH (08:16)
[2020-03-15] MEDS: ENOXAPARIN INJ 40 MG/0.4 ML SYR SQ SCH (10:45)
[2020-03-15] MEDS: CALCIUM GLUCONATE IV SCH (12:54)
[2020-03-15] MEDS: DEXTROSE 5% IV SCH (12:54)
--- NOTE | 2020-03-15 18:12 | Hospitalist Progress Note ---
Date of Service March 15, 2020 Assessment & Plan (1) Pneumonia due to 2019-nCoV: Rikki Pascual 59yo inmate with a PMHx of prior severe electrolyte derangement with hypomagnesemia, hypokalemia, and hypercalcemia, A. fib, hypotension and celiac disease who presents with 3 days of of worsened muscle aches, cramps, and hand contractures with pain who was found to have severe electrolyte abnormalities and Covid positive on admission. Severe electrolyte abnormalities Patient with longstanding history of these issues worsening if illness, unable to take p.o. repletion in the setting of acute illness. Suspect combination of nutritional deficiency with celiac worsened with acute illness. Hypomagnesemia did affect his calcium also, this as replete and continues to be monitored corrected calcium 8.2 completed calcium infusion , CaCarbonate 500mg PO BID. Vitamin D 5000 IU daily - phosphorus is low and will be replete, will use k phos i did speak to [facility] and they request to try as best to normalize his lab abnormalities prior to return - Glucose checks with BMP, POC PRN Hypertension Baseline low blood pressure in low 100s to 90s on prior review Covid positive continues without hypoxia. Dexamethasone, remdesivir, convalescent plasma not indicated Supplemental oxygen as needed - CTA: No evidence of pulmonary emboli. Groundglass opacities of the right middle lobe and lingula are suspicious for an infectious or inflammatory pneumonitis. Mucous plugging, most pronounced in the left lower lobe. No pleural effusion or adenopathy. Covid DVT prophylaxis as below Hypothyroidism Continue Synthroid Celiac Gluten-free diet Continue budesonide Depression Continue Remeron nightly Continue sertraline daily Past history of paroxysmal A. fib Normal sinus rhythm at this time Normal rate at time of assessment Follow clinically Not on anticoagulation DVT prophylaxis: COVID Lovenox dosing. Cr wnl. Diet: Regular, gluten-free. IVFM as above. Defer additional bolus/maintenance at this time given high total volume infusion of electrolyte repletion Disposition: PCU CODE STATUS: Full code (2) Transaminitis: Patient transient elevation of his AST and ALT without concurrent elevation of his bilirubin, alk phos is also elevated. Patient 7 no clinical signs or symptoms of abdominal discomfort of any kind his AST and ALT are coming down we will continue to monitor if they come down again on 03/05 will likely return for outpatient work-up once his Covid isolation is complete (3) Anemia: (4) Hypophosphatemia: (5) B12 deficiency: (6) Elevated INR: (7) Metabolic acidosis: (8) Hypomagnesemia: (9) Hypokalemia: (10) Hypothyroid: (11) Severe protein-calorie malnutrition: Admission and Anticipated Discharge Date Admission Date: March 11, 2020 Subjective pt is without distress, he is improving and continues eating without issue Review of Systems Review of Systems: Mild to moderate distress and significant fatigue no headache, blurry or double vision no speech or swallowing issues no chest pain, pressure or palpitations no shortness of breath, cough or wheezes no abdominal pain, nausea or vomiting, diarrhea or constipation no dysuria, hematuria or frequency no focal joint pain or swelling no back pain, CVA tenderness or radicular pain no bruising, bleeding or rashes no focal signs of weakness or numbness or altered sensation no complaints of anxiety or depression.. Physical Exam Physical Exam: The patient appeared severely malnourished the weak, but improving Vital signs as documented. Head exam is normocephalic atraumatic no scleral icterus Neck is without JVD, thyromegaly, or carotid bruits. Lungs are clear to auscultation, no focal loss of breath sounds Cardiac exam, Rhythm is regular.. No murmurs, rubs or gallops. Abdominal exam reveals normal bowel sounds abdomen feels more firm denies pain or tenderness to exam Extremities are nonedematous and both pedal pulses are present Neurologic exam is alert and oriented, no further spasm or tetany, no focal loss of strength or sensation Skin is without bruises or rashes Psychologically is without concerns for anxiety or depression. Results & Data Results & Data ([facility]) Vital Signs (Past 12 Hours) Vital Signs Temp Pulse Pulse Pulse Resp BP BP 03/15/20 16:29 75 20 105/70 03/15/20 16:00 63 03/15/20 10:44 98.2 F 78 14 98/64 L 03/15/20 08:00 97.7 F 55 L 59 L 14 96/60 L Pulse Ox 03/15/20 16:29 98 03/15/20 16:00 03/15/20 10:44 95 03/15/20 08:00 95 PG Care Time/CCT Total # of Minutes Spent Total Time Spent with Patient: Total time spent is greater than 50% in coordination of care (as documented) at patient's floor/unit and/or counseling patient: Coding Level of Care Code 40188 Subseq Hosp Care Lvl 2 Diagnoses Pneumonia due to 2019-nCoV U07.1; J12.82 Transaminitis R74.01 Anemia D64.9 Anemia type: unspecified type Hypophosphatemia E83.39 B12 deficiency E53.8 Elevated INR R79.1 Metabolic acidosis E87.2 Hypomagnesemia E83.42 Hypokalemia E87.6 Hypothyroid E03.9 Severe protein-calorie malnutrition E43 (1) Anemia Anemia type: unspecified type Qualified Code(s): D64.9 - Anemia, unspecified
[2020-03-15] MEDS ORDERED: Nursing to Pharmacy Communication SCH (19:15)
[2020-03-15] MEDS: SERTRALINE HCL 50 MG TABLET PO SCH (19:49)
[2020-03-15] MEDS: FOLIC ACID 1 MG TAB PO SCH (19:50)
[2020-03-15] MEDS: MIRTAZAPINE SOLTAB 15 MG PO SCH (19:50)
[2020-03-16] MEDS: LEVOTHYROXINE SODIUM 75 MCG TABLET PO SCH (05:34)
[2020-03-16 07:02] LABS: Albumin Level 1.8 gm/dl (3.4-5.0); BUN Creatinine Ratio 13.8 (10-20); Calcium 7.2 mg/dl (8.5-10.1); Creatinine Clr Calc Pharmacy 109.5 ml/min; Est GFR (African American) 137.9; Est GFR (Non-African American) 118.9
[2020-03-16 07:05] LABS: Albumin Globulin Ratio 0.5 (0.9-2); Bilirubin,Total 0.3 mg/dl (0.2-1); Globulin 3.9 gm/dl (2.5-4.0); Total Protein 5.7 gm/dl (6.4-8.2)
[2020-03-16] MEDS: BUDESONIDE EC 3 MG CAP PO SCH (07:59)
[2020-03-16] MEDS: PANCREAZE (LIPASE 10,500U) CAP PO SCH ×3 (07:59→16:33)
[2020-03-16] MEDS: CHOLECALCIFEROL 1,000 UNITS 25 MCG TAB PO SCH (07:59)
[2020-03-16] MEDS: MAGNESIUM OXIDE 400 MG TAB PO SCH ×3 (07:59→22:46)
[2020-03-16] MEDS: LACTASE 3000 UNIT TAB PO SCH ×3 (07:59→16:33)
[2020-03-16] MEDS: FAMOTIDINE 20 MG TAB PO SCH ×3 (08:00→22:49)
[2020-03-16] MEDS: CALCIUM CARBONATE 1250MG TAB PO SCH ×3 (08:00→22:49)
[2020-03-16] MEDS: THIAMINE HCL 100 MG TAB PO SCH ×3 (08:00→22:46)
[2020-03-16] MEDS: POT PHOSPHATE MONOBASIC W/ SOD TAB PO SCH ×5 (08:00→22:51)
[2020-03-16] MEDS: TAMSULOSIN HCL 0.4 MG CAP PO SCH ×3 (08:00→22:48)
--- NOTE | 2020-03-16 10:35 | Hospitalist Progress Note ---
Date of Service March 16, 2020 Assessment & Plan (1) Pneumonia due to 2019-nCoV: Rikki Pascual 59yo inmate with a PMHx of prior severe electrolyte derangement with hypomagnesemia, hypokalemia, and hypercalcemia, A. fib, hypotension and celiac disease who presents with 3 days of of worsened muscle aches, cramps, and hand contractures with pain who was found to have severe electrolyte abnormalities and Covid positive on admission. Severe electrolyte abnormalities Patient with longstanding history of these issues worsening if illness, unable to take p.o. repletion in the setting of acute illness. Suspect combination of nutritional deficiency with celiac worsened with acute illness. Hypomagnesemia did affect his calcium also, this as replete and continues to be monitored corrected calcium 8.2 completed calcium infusion , CaCarbonate 500mg PO BID. Vitamin D 5000 IU daily - phosphorus was low, no replaced mcc requests electrolytes normal prior to discharge K low at 3.0, will add back 20 TID Hypertension BP is low normal, 100 systolic Covid positive continues without hypoxia. Dexamethasone, remdesivir, convalescent plasma not indicated - CTA: No evidence of pulmonary emboli. Groundglass opacities of the right middle lobe and lingula are suspicious for an infectious or inflammatory pneumonitis. Mucous plugging, most pronounced in the left lower lobe. No pleural effusion or adenopathy. Covid DVT prophylaxis as below Hypothyroidism Continue Synthroid Celiac Gluten-free diet Continue budesonide Depression Continue Remeron nightly Continue sertraline daily Past history of paroxysmal A. fib Normal sinus rhythm at this time Normal rate at time of assessment Follow clinically Not on anticoagulation DVT prophylaxis: COVID Lovenox dosing. Cr wnl. Diet: Regular, gluten-free. IVFM as above. Defer additional bolus/maintenance at this time given high total volume infusion of electrolyte repletion Disposition: return to [facility] tomorrow CODE STATUS: Full code (2) Transaminitis: (3) Anemia: (4) Hypophosphatemia: (5) B12 deficiency: (6) Elevated INR: (7) Metabolic acidosis: (8) Hypomagnesemia: (9) Hypokalemia: (10) Hypothyroid: (11) Severe protein-calorie malnutrition: Admission and Anticipated Discharge Date Admission Date: March 11, 2020 Subjective patient is doing well, no acute issues eating and drinking well had some RLQ pain yesterday that resolved with moving his bowels K is low at 3.0, will add oral replacement he is breathing well, no fever will plan to get back to [facility] tomorrow after lab work Review of Systems Review of Systems: All systems reviewed & are unremarkable except as noted in Subjective Physical Exam Constitutional: well developed, + thin and + disheveled; no acute distress Neck: trachea midline, no thyromegaly Respiratory: normal respiratory effort, lungs clear to auscultation Cardiovascular: RRR, no murmur, no edema Gastrointestinal (Abdomen): normal bowel sounds, soft, nontender, no hepatosplenomegaly Musculoskeletal: no cyanosis or clubbing, extremities motor strength 5/5 Skin: no rashes, warm and dry Neurologic: patellar DTR's 2+ bilat, sensation intact and PERRL, EOMI, accommodation nl, no face palsy, no dysarthria Psychiatric: A+Ox3, euthymic affect Lymphatic: no cervical or axillary lymphadenopathy Results & Data Results & Data ([facility]) Vital Signs (Past 12 Hours) Vital Signs Temp Pulse Pulse Resp BP BP Pulse Ox 03/16/20 07:49 36.6 C 82 19 100/68 97 03/16/20 04:02 36.9 C 88 16 102/65 94 03/15/20 23:43 94 H 03/15/20 23:36 36.8 C 90 20 108/68 98 Laboratory Results Laboratory Results - last 24 hr 03/16/20 05:52 Sodium 142 Potassium 3.0 L Chloride 106 Carbon Dioxide 29 Anion Gap 7.0 BUN 7 Creatinine 0.48 L Est Cr Clr Drug Dosing 109.5 Est GFR ( Amer) 137.9 Est GFR (Non-Af Amer) 118.9 BUN/Creatinine Ratio 13.8 Glucose 92 Calcium 7.2 L Total Bilirubin 0.3 AST 145 H ALT 209 H Alkaline Phosphatase 352 H Total Protein 5.7 L Albumin 1.8 L Globulin 3.9 Albumin/Globulin Ratio 0.5 L Medications Administered Current Inpatient Medications Acetaminophen (Acetaminophen 500 Mg Tab) 500 mg PO Q4H PRN PRN Reason: Pain or Fever Stop: 04/10/20 23:45 Lipase/Protease/Amylase (Pancreaze (Lipase 10,500u) Cap) 2 cap PO TIDM [facility] Stop: 04/11/20 07:59 Last Admin: 03/16/20 07:59 Dose: 2 cap Documented by: Budesonide (Budesonide Ec 3 Mg Cap) 3 mg PO DAILY [facility] Stop: 04/11/20 08:59 Last Admin: 03/16/20 07:59 Dose: 3 mg Documented by: Calcium Carbonate (Calcium Carbonate 1250mg Tab) 1,250 mg PO BID [facility] Stop: 04/10/20 23:45 Last Admin: 03/16/20 08:00 Dose: 1,250 mg Documented by: Enoxaparin Sodium (Enoxaparin Inj 40 Mg/0.4 Ml Syr) 40 mg SQ Q12H [facility] Stop: 04/11/20 00:00 Last Admin: 03/16/20 00:00 Dose: Not Given Documented by: Famotidine (Famotidine 20 Mg Tab) 20 mg PO BID [facility] Stop: 04/10/20 23:45 Last Admin: 03/16/20 08:00 Dose: 20 mg Documented by: Folic Acid (Folic Acid 1 Mg Tab) 1 mg PO HS [facility] Stop: 04/10/20 23:45 Last Admin: 03/15/20 19:50 Dose: 1 mg Documented by: Potassium Chloride 20 meq/ (Sodium Chloride) 1,010 mls @ 50 mls/hr IV .[id number] [facility] Stop: 04/11/20 08:59 Last Admin: 03/15/20 23:32 Dose: 50 mls/hr Documented by: Calcium Gluconate 11,000 mg/ (Dextrose) 1,110 mls @ 50 mls/hr IV .[id number] [facility] Stop: 04/11/20 16:29 Last Admin: 03/15/20 12:54 Dose: 50 mls/hr Documented by: Lactase (Lactase 3000 Unit Tab) 3,000 units PO AC [facility] Stop: 04/11/20 07:29 Last Admin: 03/16/20 07:59 Dose: 3,000 units Documented by: Levothyroxine Sodium (Levothyroxine Sodium 75 Mcg Tablet) 37.5 mcg PO DAILYBB [facility] Stop: 04/13/20 06:29 Last Admin: 03/16/20 05:34 Dose: 37.5 mcg Documented by: Magnesium Oxide (Magnesium Oxide 400 Mg Tab) 400 mg PO BID [facility] Stop: 04/10/20 23:45 Last Admin: 03/16/20 07:59 Dose: 400 mg Documented by: Mirtazapine (Mirtazapine Soltab 15 Mg) 15 mg PO HS [facility] Stop: 04/10/20 23:45 Last Admin: 03/15/20 19:50 Dose: 15 mg Documented by: Ondansetron HCl (Ondansetron Inj 2 Mg/Ml 2 Ml Vial) 4 mg IV Q6H PRN PRN Reason: Nausea Stop: 04/10/20 23:45 Potassium Chloride (Potassium Chloride Crtab 20 Meq Tabcr) 20 meq PO TID [facility] Stop: 04/15/20 08:59 Potassium Phosphate (Pot Phosphate Monobasic W/ Sod Tab) 1 tab PO QID [facility] Stop: 04/11/20 08:59 Last Admin: 03/16/20 08:00 Dose: 1 tab Documented by: Sertraline HCl (Sertraline Hcl 50 Mg Tablet) 25 mg PO HS [facility] Stop: 04/10/20 23:45 Last Admin: 03/15/20 19:49 Dose: 25 mg Documented by: Tamsulosin HCl (Tamsulosin Hcl 0.4 Mg Cap) 0.4 mg PO BID [facility] Stop: 04/10/20 23:45 Last Admin: 03/16/20 08:00 Dose: 0.4 mg Documented by: Thiamine HCl (Thiamine Hcl 100 Mg Tab) 200 mg PO BID [facility] Stop: 04/11/20 08:59 Last Admin: 03/16/20 08:00 Dose: 200 mg Documented by: Vitamin D (Cholecalciferol 1,000 Units 25 Mcg Tab) 5,000 units PO QAM [facility] Stop: 04/11/20 08:59 Last Admin: 03/16/20 07:59 Dose: 5,000 units Documented by: PG Care Time/CCT Total # of Minutes Spent Total Time Spent with Patient: Total time spent is greater than 50% in coordination of care (as documented) at patient's floor/unit and/or counseling patient: Coding Level of Care Code 59052 Subseq Hosp Care Lvl 2 Diagnoses Pneumonia due to 2019-nCoV U07.1; J12.82 Transaminitis R74.01 Anemia D64.9 Anemia type: unspecified type Hypophosphatemia E83.39 B12 deficiency E53.8 Elevated INR R79.1 Metabolic acidosis E87.2 Hypomagnesemia E83.42 Hypokalemia E87.6 Hypothyroid E03.9 Severe protein-calorie malnutrition E43 (1) Anemia Anemia type: unspecified type Qualified Code(s): D64.9 - Anemia, unspecified
[2020-03-16] MEDS: POTASSIUM CHLORIDE 20 MEQ in SODIUM CHLORIDE 0.45 % 1,000 ML IV SCH (10:41)
[2020-03-16] MEDS: POTASSIUM CHLORIDE CRTAB 20 MEQ TABCR PO SCH ×4 (10:41→22:47)
[2020-03-16] MEDS: THIAMINE HCL 100 MG in SYRINGE 9 ML IV SCH (11:07)
[2020-03-16] MEDS: ENOXAPARIN INJ 40 MG/0.4 ML SYR SQ SCH ×2 (12:27)
[2020-03-16] MEDS: FOLIC ACID 1 MG TAB PO SCH ×2 (21:02→22:46)
[2020-03-16] MEDS: SERTRALINE HCL 50 MG TABLET PO SCH ×2 (21:03→22:47)
[2020-03-16] MEDS: MIRTAZAPINE SOLTAB 15 MG PO SCH ×2 (21:03→22:46)
[2020-03-17] MEDS: ENOXAPARIN INJ 40 MG/0.4 ML SYR SQ SCH ×2 (00:19→12:00)
[2020-03-17] MEDS: POTASSIUM CHLORIDE 20 MEQ in SODIUM CHLORIDE 0.45 % 1,000 ML IV SCH ×3 (03:54→21:28)
[2020-03-17] MEDS: LEVOTHYROXINE SODIUM 75 MCG TABLET PO SCH (03:55)
[2020-03-17 07:24] LABS: BUN Creatinine Ratio 13.4 (10-20); Calcium 5.9 mg/dl (8.5-10.1); Est GFR (African American) 133.4; Est GFR (Non-African American) 115.1
[2020-03-17] MEDS: CHOLECALCIFEROL 1,000 UNITS 25 MCG TAB PO SCH (08:44)
[2020-03-17] MEDS: DEXTROSE 5% IV SCH (08:44)
[2020-03-17] MEDS: CALCIUM GLUCONATE IV SCH (08:44)
[2020-03-17] MEDS: CALCIUM CARBONATE 1250MG TAB PO SCH ×2 (08:44→21:31)
[2020-03-17] MEDS: POT PHOSPHATE MONOBASIC W/ SOD TAB PO SCH ×4 (08:44→21:45)
[2020-03-17] MEDS: FAMOTIDINE 20 MG TAB PO SCH ×2 (08:44→21:30)
[2020-03-17] MEDS: BUDESONIDE EC 3 MG CAP PO SCH (08:45)
[2020-03-17] MEDS: THIAMINE HCL 100 MG TAB PO SCH ×2 (08:45→21:30)
[2020-03-17] MEDS: TAMSULOSIN HCL 0.4 MG CAP PO SCH ×2 (08:45→21:31)
[2020-03-17] MEDS: LACTASE 3000 UNIT TAB PO SCH ×3 (08:45→16:39)
[2020-03-17] MEDS: PANCREAZE (LIPASE 10,500U) CAP PO SCH ×3 (08:45→16:40)
[2020-03-17] MEDS: MAGNESIUM OXIDE 400 MG TAB PO SCH ×2 (08:45→21:32)
[2020-03-17] MEDS: POTASSIUM CHLORIDE CRTAB 20 MEQ TABCR PO SCH ×3 (08:45→21:33)
[2020-03-17] MEDS ORDERED: CALCIUM GLUCONATE 10% 2,000 MG in SODIUM CHLORIDE 0.9% 50 ML IV ONE (10:36)
[2020-03-17 12:08] LABS: Potassium 3.5 mmol/L (3.5-5.1)
[2020-03-17] MEDS: MIRTAZAPINE SOLTAB 15 MG PO SCH (21:31)
[2020-03-17] MEDS: FOLIC ACID 1 MG TAB PO SCH (21:32)
[2020-03-17] MEDS: SERTRALINE HCL 50 MG TABLET PO SCH (21:33)
--- NOTE | 2020-03-17 21:34 | Hospitalist Progress Note ---
Date of Service March 17, 2020 Assessment & Plan (1) Pneumonia due to 2019-nCoV: Rikki Pascual 59yo inmate with a PMHx of prior severe electrolyte derangement with hypomagnesemia, hypokalemia, and hypercalcemia, A. fib, hypotension and celiac disease who presents with 3 days of of worsened muscle aches, cramps, and hand contractures with pain who was found to have severe electrolyte abnormalities and Covid positive on admission. Severe electrolyte abnormalities Patient with longstanding history of these issues worsening if illness, unable to take p.o. repletion in the setting of acute illness. Suspect combination of nutritional deficiency with celiac worsened with acute illness. dealing with hypocalcemia, hypomagnesemia, hypophosphatemia and hypokalemia on calcium infusion, Calcium carbonate 1250mg BID calcium still low at 5.9, corrected closer to 7.9 continue Magnesium oxide 400mg BID continue Potassium supplementation will ask nephrology for their recommendation as he is on calcium infusion need to figure out how to maintain electrolytes to get him back to [facility] K up to 3.5, continue 20 TID Hypertension BP is low normal, 106 systolic Covid positive continues without hypoxia. Dexamethasone, remdesivir, convalescent plasma not indicated - CTA: No evidence of pulmonary emboli. Groundglass opacities of the right middle lobe and lingula are suspicious for an infectious or inflammatory pneumonitis. Mucous plugging, most pronounced in the left lower lobe. No pleural effusion or adenopathy. Covid DVT prophylaxis as below Hypothyroidism Continue Synthroid Celiac Gluten-free diet Continue budesonide Depression Continue Remeron nightly Continue sertraline daily Past history of paroxysmal A. fib Normal sinus rhythm at this time Normal rate at time of assessment Follow clinically Not on anticoagulation DVT prophylaxis: COVID Lovenox dosing. Cr wnl. Diet: Regular, gluten-free. IVFM as above. Defer additional bolus/maintenance at this time given high total volume infusion of electrolyte repletion Disposition: return to [facility] once electrolytes stable, consult nephrology CODE STATUS: Full code (2) Transaminitis: (3) Anemia: (4) Hypophosphatemia: (5) B12 deficiency: (6) Elevated INR: (7) Metabolic acidosis: (8) Hypomagnesemia: (9) Hypokalemia: (10) Hypothyroid: (11) Severe protein-calorie malnutrition: Admission and Anticipated Discharge Date Admission Date: March 11, 2020 Subjective Ca low at 5.9, corrected would be closer to 7.9 based on prior albumin of 1.8 K is normal today he feels okay, eating well, had a BM last night which made his abdomen feel better unsure how to keep calcium at a normal level given that he is on infusion and still on low side no dyspnea, no fever/chills, no chest pain, no cough he is weak but this is baseline for him Review of Systems Review of Systems: All systems reviewed & are unremarkable except as noted in Subjective Constitutional: + weakness; no fever and no fatigue Respiratory: no cough and no dyspnea Cardiovascular: no chest pain and no edema Gastrointestinal: no abdominal pain, no nausea, no vomiting, no constipation and no diarrhea/loose stools Physical Exam Constitutional: well developed, + thin and + disheveled; no acute distress Neck: trachea midline, no thyromegaly Respiratory: normal respiratory effort, lungs clear to auscultation Cardiovascular: RRR, no murmur, no edema Gastrointestinal (Abdomen): normal bowel sounds, soft, nontender, no hepatosplenomegaly Musculoskeletal: no cyanosis or clubbing, extremities motor strength 5/5 Skin: no rashes, warm and dry Neurologic: patellar DTR's 2+ bilat, sensation intact and PERRL, EOMI, accommodation nl, no face palsy, no dysarthria Psychiatric: A+Ox3, euthymic affect Lymphatic: no cervical or axillary lymphadenopathy Results & Data Results & Data ([facility]) Vital Signs (Past 12 Hours) Vital Signs Temp Pulse Pulse Resp BP Pulse Ox 03/17/20 18:57 37.1 C 99 H 20 106/71 97 03/17/20 15:22 85 03/17/20 11:23 37 C 99 H 18 105/68 98 Laboratory Results Laboratory Results - last 24 hr 03/17/20 05:52 Sodium 141 Potassium 3.5 D Chloride 108 H Carbon Dioxide 27 Anion Gap 6.0 BUN 7 Creatinine 0.52 L Est Cr Clr Drug Dosing 96.0 Est GFR ( Amer) 133.4 Est GFR (Non-Af Amer) 115.1 BUN/Creatinine Ratio 13.4 Glucose 87 Calcium 5.9 L* D Medications Administered Current Inpatient Medications Acetaminophen (Acetaminophen 500 Mg Tab) 500 mg PO Q4H PRN PRN Reason: Pain or Fever Stop: 04/10/20 23:45 Lipase/Protease/Amylase (Pancreaze (Lipase 10,500u) Cap) 2 cap PO TIDM [facility] Stop: 04/11/20 07:59 Last Admin: 03/17/20 16:40 Dose: 2 cap Documented by: Budesonide (Budesonide Ec 3 Mg Cap) 3 mg PO DAILY [facility] Stop: 04/11/20 08:59 Last Admin: 03/17/20 08:45 Dose: 3 mg Documented by: Calcium Carbonate (Calcium Carbonate 1250mg Tab) 1,250 mg PO BID [facility] Stop: 04/10/20 23:45 Last Admin: 03/17/20 08:44 Dose: 1,250 mg Documented by: Enoxaparin Sodium (Enoxaparin Inj 40 Mg/0.4 Ml Syr) 40 mg SQ Q12H [facility] Stop: 04/11/20 00:00 Last Admin: 03/17/20 12:00 Dose: 40 mg Documented by: Famotidine (Famotidine 20 Mg Tab) 20 mg PO BID [facility] Stop: 04/10/20 23:45 Last Admin: 03/17/20 08:44 Dose: 20 mg Documented by: Folic Acid (Folic Acid 1 Mg Tab) 1 mg PO HS [facility] Stop: 04/10/20 23:45 Last Admin: 03/16/20 22:46 Dose: 1 mg Documented by: Potassium Chloride 20 meq/ (Sodium Chloride) 1,010 mls @ 50 mls/hr IV .[id number] [facility] Stop: 04/11/20 08:59 Last Admin: 03/17/20 03:56 Dose: 50 mls/hr Documented by: Calcium Gluconate 11,000 mg/ (Dextrose) 1,110 mls @ 50 mls/hr IV .[id number] [facility] Stop: 04/11/20 16:29 Last Admin: 03/17/20 08:44 Dose: 50 mls/hr Documented by: Lactase (Lactase 3000 Unit Tab) 3,000 units PO AC [facility] Stop: 04/11/20 07:29 Last Admin: 03/17/20 16:39 Dose: 3,000 units Documented by: Levothyroxine Sodium (Levothyroxine Sodium 75 Mcg Tablet) 37.5 mcg PO DAILYBB [facility] Stop: 04/13/20 06:29 Last Admin: 03/17/20 03:55 Dose: 37.5 mcg Documented by: Magnesium Oxide (Magnesium Oxide 400 Mg Tab) 400 mg PO BID [facility] Stop: 04/10/20 23:45 Last Admin: 03/17/20 08:45 Dose: 400 mg Documented by: Mirtazapine (Mirtazapine Soltab 15 Mg) 15 mg PO HS [facility] Stop: 04/10/20 23:45 Last Admin: 03/16/20 22:46 Dose: 15 mg Documented by: Ondansetron HCl (Ondansetron Inj 2 Mg/Ml 2 Ml Vial) 4 mg IV Q6H PRN PRN Reason: Nausea Stop: 04/10/20 23:45 Potassium Chloride (Potassium Chloride Crtab 20 Meq Tabcr) 20 meq PO TID [facility] Stop: 04/15/20 08:59 Last Admin: 03/17/20 14:01 Dose: 20 meq Documented by: Potassium Phosphate (Pot Phosphate Monobasic W/ Sod Tab) 1 tab PO QID [facility] Stop: 04/11/20 08:59 Last Admin: 03/17/20 16:39 Dose: 1 tab Documented by: Sertraline HCl (Sertraline Hcl 50 Mg Tablet) 25 mg PO [facility] Stop: 04/10/20 23:45 Last Admin: 03/16/20 22:47 Dose: 25 mg Documented by: Tamsulosin HCl (Tamsulosin Hcl 0.4 Mg Cap) 0.4 mg PO BID [facility] Stop: 04/10/20 23:45 Last Admin: 03/17/20 08:45 Dose: 0.4 mg Documented by: Thiamine HCl (Thiamine Hcl 100 Mg Tab) 200 mg PO BID [facility] Stop: 04/11/20 08:59 Last Admin: 03/17/20 08:45 Dose: 200 mg Documented by: Vitamin D (Cholecalciferol 1,000 Units 25 Mcg Tab) 5,000 units PO QAM [facility] Stop: 04/11/20 08:59 Last Admin: 03/17/20 08:44 Dose: 5,000 units Documented by: PG Care Time/CCT Total # of Minutes Spent Total Time Spent with Patient: Total time spent is greater than 50% in coordination of care (as documented) at patient's floor/unit and/or counseling patient: Coding Level of Care Code 66826 Subseq Hosp Care Lvl 2 Diagnoses Pneumonia due to 2019-nCoV U07.1; J12.82 Transaminitis R74.01 Anemia D64.9 Anemia type: unspecified type Hypophosphatemia E83.39 B12 deficiency E53.8 Elevated INR R79.1 Metabolic acidosis E87.2 Hypomagnesemia E83.42 Hypokalemia E87.6 Hypothyroid E03.9 Severe protein-calorie malnutrition E43 (1) Anemia Anemia type: unspecified type Qualified Code(s): D64.9 - Anemia, unspecified
[2020-03-18] MEDS: ENOXAPARIN INJ 40 MG/0.4 ML SYR SQ SCH ×2 (00:27→12:11)
[2020-03-18] MEDS: ONDANSETRON INJ 2 MG/ML 2 ML VIAL IV PRN (00:28)
[2020-03-18] MEDS: DEXTROSE 5% IV SCH (05:28)
[2020-03-18] MEDS: LEVOTHYROXINE SODIUM 75 MCG TABLET PO SCH (05:28)
[2020-03-18] MEDS: CALCIUM GLUCONATE IV SCH (05:28)
[2020-03-18 06:57] LABS: Hematocrit (blood only) 27.5 % (42-52); Hemoglobin 8.9 g/dL (14.0-18.0); Mean Corpuscular Hemoglobin 30.5 pg (25-34); Mean Corpuscular Hgb Conc 32.4 g/dL (32-36); Mean Corpuscular Volume 94.2 fL (80-100); Mean Platelet Volume 11.7 fL (7.4-10.4); Nucleated RBC # (auto) 0.07 K/uL (0-0); Nucleated RBC % (auto) 0.9 %; Platelet Count 396 K/uL (130-400); RDW Standard Deviation 86.1 fL (36.4-46.3); Red Blood Count 2.92 M/uL (4.7-6.1); White Blood Count 7.65 K/uL (4.8-10.8)
[2020-03-18 07:30] LABS: Albumin Globulin Ratio 0.4 (0.9-2); Albumin Level 1.9 gm/dl (3.4-5.0); Bilirubin,Total 0.2 mg/dl (0.2-1); Calcium 7.5 mg/dl (8.5-10.1); Creatinine Clr Calc Pharmacy 83.9 ml/min; Est GFR (African American) 126.6; Est GFR (Non-African American) 109.3; Globulin 4.2 gm/dl (2.5-4.0); Magnesium 1.4 mg/dl (1.8-2.4); Phosphorus 2.5 mg/dl (2.5-4.9); Potassium 3.5 mmol/L (3.5-5.1); Total Protein 6.1 gm/dl (6.4-8.2)
[2020-03-18] MEDS: POTASSIUM CHLORIDE 20 MEQ in SODIUM CHLORIDE 0.45 % 1,000 ML IV SCH (07:31)
[2020-03-18] MEDS: CHOLECALCIFEROL 1,000 UNITS 25 MCG TAB PO SCH (08:08)
[2020-03-18] MEDS: MAGNESIUM OXIDE 400 MG TAB PO SCH ×2 (08:09→20:51)
[2020-03-18] MEDS: THIAMINE HCL 100 MG TAB PO SCH ×2 (08:09→20:53)
[2020-03-18] MEDS: TAMSULOSIN HCL 0.4 MG CAP PO SCH ×2 (08:09→20:51)
[2020-03-18] MEDS: BUDESONIDE EC 3 MG CAP PO SCH (08:09)
[2020-03-18] MEDS: LACTASE 3000 UNIT TAB PO SCH ×3 (08:10→16:50)
[2020-03-18] MEDS: CALCIUM CARBONATE 1250MG TAB PO SCH ×2 (08:10→20:51)
[2020-03-18] MEDS: FAMOTIDINE 20 MG TAB PO SCH ×2 (08:10→20:51)
[2020-03-18] MEDS: PANCREAZE (LIPASE 10,500U) CAP PO SCH ×3 (08:11→16:45)
[2020-03-18] MEDS: POTASSIUM CHLORIDE CRTAB 20 MEQ TABCR PO SCH ×3 (08:11→20:51)
[2020-03-18] MEDS: POT PHOSPHATE MONOBASIC W/ SOD TAB PO SCH ×4 (08:12→20:51)
[2020-03-18] MEDS: MAGNESIUM SULFATE / D5W 1 GM/100 ML BAG IV SCH ×2 (09:53→12:07)
--- NOTE | 2020-03-18 10:29 | Nephrology Consultation ---
Date of Consultation March 18, 2020 Assessment & Plan (1) Hypocalcemia: Mr. Pascual is a 59-year-old gentleman with a past medical history significant for celiac disease and lymphocytic colitis leading to chronic diarrhea, protein calorie malnutrition and chronic multiple critical electrolyte abnormality in the setting of normal renal function and urinalysis. Has been getting supplement and most of the electrolyte improved except magnesium. --although cannot exclude any possibility for renal loss however considering patient's significant history of diarrheal illness with celiac disease and lymphocytic colitis, critical electrolyte abnormality including non gap metabolic acidosis, most likely cause for electrolyte abnormality is malabsorption leading to GI loss. --will check urine electrolytes to look for any evidence of urinary loss. --continue to replace with oral and IV supplement. --check PTH, vitamin-D --start on calcitriol 1 mcg twice a day --ongoing management of diarrhea Will follow Thank you for allowing me to participate in your patient's care. (2) Hypophosphatemia: (3) Hypokalemia: (4) Hypomagnesemia: (5) Severe protein-calorie malnutrition: (6) Lymphocytic colitis: (7) Celiac disease: History of Present Illness Reason for Consultation: Multiple electrolyte abnormality including hypokalemia, hypomagnesemia, hypophosphatemia and hypocalcemia Attending Physician: Kiran Fitzpatrick, DO History of Present Illness Rikki Pascual is a 59yom with PMHx of celiac disease, lymphocytic colitis and prior severe electrolyte derangement with hypokalemia, hypomagnesemia, hypokalemia, and hypercalcemia admitted to the hospital after he presented with muscle cramp, multiple critical electrolyte abnormality and COVID pneumonia. Rikki initially presented to the hospital with 1 week history of increased shortness of breath with ambulation and cough. He was also feverish with chills for few days. He was also having diarrhea for few days and loss of taste, intermittent stomachache. 2 days prior to arrival to ER he he started to notice hand cramps and wrist contractions. On admission he was found to have normal renal function and sodium however potassium, calcium, phosphate as well as magnesium was found to be critically low associated with non gap metabolic acidosis. Urinalysis otherwise unremarkable with no proteinuria, hematuria, pyuria, glycosuria, albuminuria. Since then he has been getting supplements however continues to have significant electrolyte abnormality. He has been having ongoing diarrhea with 4-5 bowel movement yesterday. In 2018 he had EGD and colonoscopy for ongoing diarrhea, weight loss and multiple critical electrolyte abnormality, biopsy confirmed the diagnosis of celiac disease and lymphocytic colitis. Has been following with GI, following gluten free diet. Also has known history of paroxysmal atrial fibrillation, has been on anticoagulation. Prior history of incarcerated right inguinal hernia repair and small-bowel obstruction and incarcerated right inguinal hernia repair. Has protein calorie malnutrition and failure to thrive with underlying celiac disease and lymphocytic colitis. Has history of splenectomy. Due to COVID-19 isolation, physical exam was not performed. Labs, vitals and other clinical parameters and imaging studies in EMR were reviewed in detail during visit. Discussed in detail with patient's nurse. This morning he was otherwise asymptomatic without significant shortness of breath, blood pressure relatively low but asymptomatic. Has been voiding normally. Has been afebrile. Reported to have 4-5 bowel movement yesterday. This morning lab showed improvement in potassium, calcium and phosphate however magnesium still low at 1.4. Renal function continues to be normal. Allergies Allergy/AdvReac Type Severity Reaction Status Date / Time gluten Allergy Unknown GI SYMPTOMS Verified 03/11/20 17:00 Penicillins Allergy Unknown unknown Verified 03/11/20 17:00 lactose AdvReac Gastrointestinal Verified 03/11/20 17:00 Upset Home Medications Medication Instructions Recorded Confirmed Type Creon 1 cap PO TIDM 09/22/19 03/11/20 History calcium carbonate [Calcium 600] 600 mg PO BID 09/22/19 03/11/20 History cyanocobalamin (vitamin B-12) 1,000 mcg SUBCUT MONTHLY 09/22/19 03/11/20 History ferrous sulfate 325 mg PO HS 09/22/19 03/11/20 History folic acid 1 mg PO HS 09/22/19 03/11/20 History mirtazapine 15 mg PO HS 09/22/19 03/11/20 History tamsulosin 0.4 mg PO BID 09/22/19 03/11/20 History famotidine 20 mg PO BID #60 tab 09/28/19 03/11/20 Rx magnesium oxide 400 mg PO BID #60 tab 09/28/19 03/11/20 Rx potassium chloride [Klor-Con M20] 20 meq PO BID #60 tab 09/28/19 03/11/20 Rx bismuth subsalicylate [Katie 3 tab PO TID PRN 03/11/20 03/11/20 History Bismuth] budesonide [Entocort EC] 3 mg PO DAILY 03/11/20 03/11/20 History cholecalciferol (vitamin D3) 250 mcg PO DAILY 03/11/20 03/11/20 History [Vitamin D3] ibuprofen 600 mg PO TID PRN 03/11/20 03/11/20 History lactase 3,000 unit PO AC 03/11/20 03/11/20 History levothyroxine 37.5 mcg PO DAILY 03/11/20 03/11/20 History loperamide [Anti-Diarrhea] 2 mg PO TID 03/11/20 03/11/20 History sertraline 25 mg PO HS 03/11/20 03/11/20 History thiamine mononitrate (vit B1) 200 mg PO BID 03/11/20 03/11/20 History [Vitamin B-1 (mononitrate)] Patient History Medical History (Updated 03/14/20 @ 15:11 by Amari Ferguson MD) Anemia B12 deficiency BPH (benign prostatic hyperplasia) Celiac disease Chronic deep vein thrombosis (DVT) Chronic deep vein thrombosis (DVT) of right lower extremity Coagulopathy GERD (gastroesophageal reflux disease) Hypothyroid Prolonged Q-T interval on ECG Protein malnutrition Vitamin K deficiency Surgical History H/O splenectomy Family History Other No pertinent family history Social History Smoking Status: Former smoker Second Hand Exposure: No; Do You Dip or Chew Tobacco: No; Tobacco Cessation Education Requested by Patient: No Hx Alcohol Use: No Hx Substance Use: No Preferred Language: Georgian Communication Ability: Effective Corrective Therapy Aide Teacher Required: No Beliefs That Will Affect Care: None marital status: Unknown Current Living Situation: Other Other Information That Helps Us Care for You: No Feels Safe at Home: Yes Safety Concerns: Feels Safe At This Time Assistive Devices: None Review of Systems Review of Systems: Other Results & Data ([place]) Vital Signs (Past 12 Hours) Vital Signs Temp Pulse Pulse Resp BP Pulse Ox 01/20/21 08:01 36.7 C 78 20 100/68 97 03/18/20 08:00 87 03/18/20 05:07 37.1 C 100 H 17 118/82 97 03/18/20 00:05 36.8 C 95 H 18 120/81 98 03/17/20 23:59 83 PG Care Time/CCT Total # of Minutes Spent Total Time Spent with Patient: Total time spent is greater than 50% in coordination of care (as documented) at patient's floor/unit and/or counseling patient: Coding Level of Care Code 09339 Inpt Consult Level 4 Diagnoses Hypocalcemia E83.51 Hypophosphatemia E83.39 Hypokalemia E87.6 Hypomagnesemia E83.42 Severe protein-calorie malnutrition E43 Lymphocytic colitis K52.832 Celiac disease K90.0
[2020-03-18] MEDS: CALCITRIOL 0.25 MCG CAPSULE PO SCH ×2 (12:08→20:51)
--- NOTE | 2020-03-18 15:16 | Hospitalist Progress Note ---
Date of Service March 18, 2020 Assessment & Plan (1) Pneumonia due to 2019-nCoV: Rikki Pascual 59yo inmate with a PMHx of prior severe electrolyte derangement with hypomagnesemia, hypokalemia, and hypercalcemia, A. fib, hypotension and celiac disease who presents with 3 days of of worsened muscle aches, cramps, and hand contractures with pain who was found to have severe electrolyte abnormalities and Covid positive on admission. Severe electrolyte abnormalities Patient with longstanding history of these issues worsening if illness, unable to take p.o. repletion in the setting of acute illness. Suspect combination of nutritional deficiency with celiac worsened with acute illness. dealing with hypocalcemia, hypomagnesemia, hypophosphatemia and hypokalemia on calcium infusion, Calcium carbonate 1250mg BID calcium improved to 7.9, closer to 9.6 corrected will add Calcitriol 1mcg BID stop continuous infusion today check labs in AM continue Magnesium oxide 400mg BID Mg 1.4 this morning, gave him 2gm IV this morning continue Potassium supplementation move to medical floor today check labs in AM, hopeful for discharge tomorrow K stable at 3.5, continue 20 TID Hypertension BP is low normal at 98 systolic Covid positive continues without hypoxia. Dexamethasone, remdesivir, convalescent plasma not indicated - CTA: No evidence of pulmonary emboli. Groundglass opacities of the right middle lobe and lingula are suspicious for an infectious or inflammatory pneumonitis. Mucous plugging, most pronounced in the left lower lobe. No pleural effusion or adenopathy. Covid DVT prophylaxis as below Hypothyroidism Continue Synthroid Celiac Gluten-free diet Continue budesonide Depression Continue Remeron nightly Continue sertraline daily Past history of paroxysmal A. fib Normal sinus rhythm at this time Normal rate at time of assessment Follow clinically Not on anticoagulation move to medical floor DVT prophylaxis: COVID Lovenox dosing. Cr wnl. Diet: Regular, gluten-free. IVFM as above. Defer additional bolus/maintenance at this time given high total volume infusion of electrolyte repletion Disposition: return to [facility] once electrolytes stable, consult nephrology CODE STATUS: Full code (2) Transaminitis: (3) Anemia: (4) Hypophosphatemia: (5) B12 deficiency: (6) Elevated INR: (7) Metabolic acidosis: (8) Hypomagnesemia: (9) Hypokalemia: (10) Hypothyroid: (11) Severe protein-calorie malnutrition: Admission and Anticipated Discharge Date Admission Date: March 11, 2020 Subjective patient is doing well, had some nausea and diarrhea but resolved discussed importance of not eating gluten as this causes worsening celiac disease and malabsorption reviewed labs, Mg low at 1.4 Ca improved to 7.9, corrected it is normal range appreciate nephrology consult, will add Calcitriol no issues on tele, move to medical floor Review of Systems Review of Systems: All systems reviewed & are unremarkable except as noted in Subjective Gastrointestinal: + nausea and + diarrhea/loose stools; no abdominal pain Physical Exam Constitutional: well developed, + thin and + disheveled; no acute distress Neck: trachea midline, no thyromegaly Respiratory: normal respiratory effort, lungs clear to auscultation Cardiovascular: RRR, no murmur, no edema Gastrointestinal (Abdomen): normal bowel sounds, soft, nontender, no hepato splenomegaly Musculoskeletal: no cyanosis or clubbing, extremities motor strength 5/5 Skin: no rashes, warm and dry Neurologic: patellar DTR's 2+ bilat, sensation intact and PERRL, EOMI, accommodation nl, no face palsy, no dysarthria Psychiatric: A+Ox3, euthymic affect Lymphatic: no cervical or axillary lymphadenopathy Results & Data Results & Data ([facility]) Vital Signs (Past 12 Hours) Vital Signs Temp Pulse Pulse Resp BP BP Pulse Ox 03/18/20 12:02 36.8 C 79 20 98/65 L 97 03/18/20 08:01 36.7 C 78 20 100/68 97 03/18/20 08:00 87 03/18/20 05:07 37.1 C 100 H 17 118/82 97 Laboratory Results Laboratory Results - last 24 hr 03/18/20 03/18/20 06:14 06:14 WBC 7.65 RBC 2.92 L Hgb 8.9 L Hct 27.5 L MCV 94.2 MCH 30.5 MCHC 32.4 RDW Std Deviation 86.1 H RDW Coeff of Tevin 26.0 H Plt Count 396 MPV 11.7 H Absolute Nucleated RBC 0.07 H Nucleated RBC % (auto) 0.9 Sodium 138 Potassium 3.5 Chloride 105 Carbon Dioxide 27 Anion Gap 6.0 BUN 7 Creatinine 0.59 L Est Cr Clr Drug Dosing 83.9 Est GFR ( Amer) 126.6 Est GFR (Non-Af Amer) 109.3 BUN/Creatinine Ratio 12.0 Glucose 87 Calcium 7.5 L D Phosphorus 2.5 Magnesium 1.4 L Total Bilirubin 0.2 AST 88 H ALT 165 H Alkaline Phosphatase 381 H Total Protein 6.1 L Albumin 1.9 L Globulin 4.2 H Albumin/Globulin Ratio 0.4 L Medications Administered Current Inpatient Medications Acetaminophen (Acetaminophen 500 Mg Tab) 500 mg PO Q4H PRN PRN Reason: Pain or Fever Stop: 04/10/20 23:45 Lipase/Protease/Amylase (Pancreaze (Lipase 10,500u) Cap) 2 cap PO TIDM [facility] Stop: 04/11/20 07:59 Last Admin: 03/18/20 12:07 Dose: 2 cap Documented by: Budesonide (Budesonide Ec 3 Mg Cap) 3 mg PO DAILY [facility] Stop: 04/11/20 08:59 Last Admin: 03/18/20 08:09 Dose: 3 mg Documented by: Calcitriol (Calcitriol 0.25 Mcg Capsule) 1 mcg PO BID [facility] Stop: 04/17/20 11:59 Last Admin: 03/18/20 12:08 Dose: 1 mcg Documented by: Calcium Carbonate (Calcium Carbonate 1250mg Tab) 1,250 mg PO BID [facility] Stop: 04/10/20 23:45 Last Admin: 03/18/20 08:10 Dose: 1,250 mg Documented by: Enoxaparin Sodium (Enoxaparin Inj 40 Mg/0.4 Ml Syr) 40 mg SQ Q12H [facility] Stop: 04/11/20 00:00 Last Admin: 03/18/20 12:11 Dose: Not Given Documented by: Famotidine (Famotidine 20 Mg Tab) 20 mg PO BID [facility] Stop: 04/10/20 23:45 Last Admin: 03/18/20 08:10 Dose: 20 mg Documented by: Folic Acid (Folic Acid 1 Mg Tab) 1 mg PO HS [facility] Stop: 04/10/20 23:45 Last Admin: 03/17/20 21:32 Dose: 1 mg Documented by: Lactase (Lactase 3000 Unit Tab) 3,000 units PO AC [facility] Stop: 04/11/20 07:29 Last Admin: 03/18/20 12:08 Dose: 3,000 units Documented by: Levothyroxine Sodium (Levothyroxine Sodium 75 Mcg Tablet) 37.5 mcg PO DAILYBB [facility] Stop: 04/13/20 06:29 Last Admin: 03/18/20 05:28 Dose: 37.5 mcg Documented by: Magnesium Oxide (Magnesium Oxide 400 Mg Tab) 400 mg PO BID [facility] Stop: 04/10/20 23:45 Last Admin: 03/18/20 08:09 Dose: 400 mg Documented by: Mirtazapine (Mirtazapine Soltab 15 Mg) 15 mg PO [facility] Stop: 04/10/20 23:45 Last Admin: 03/17/20 21:31 Dose: 15 mg Documented by: Ondansetron HCl (Ondansetron Inj 2 Mg/Ml 2 Ml Vial) 4 mg IV Q6H PRN PRN Reason: Nausea Stop: 04/10/20 23:45 Last Admin: 03/18/20 00:28 Dose: 4 mg Documented by: Potassium Chloride (Potassium Chloride Crtab 20 Meq Tabcr) 20 meq PO TID [facility] Stop: 04/15/20 08:59 Last Admin: 03/18/20 13:36 Dose: 20 meq Documented by: Potassium Phosphate (Pot Phosphate Monobasic W/ Sod Tab) 1 tab PO QID [facility] Stop: 04/11/20 08:59 Last Admin: 03/18/20 12:09 Dose: 1 tab Documented by: Sertraline HCl (Sertraline Hcl 50 Mg Tablet) 25 mg PO [facility] Stop: 04/10/20 23:45 Last Admin: 03/17/20 21:33 Dose: 25 mg Documented by: Tamsulosin HCl (Tamsulosin Hcl 0.4 Mg Cap) 0.4 mg PO BID [facility] Stop: 04/10/20 23:45 Last Admin: 03/18/20 08:09 Dose: 0.4 mg Documented by: Thiamine HCl (Thiamine Hcl 100 Mg Tab) 200 mg PO BID [facility] Stop: 04/11/20 08:59 Last Admin: 03/18/20 08:09 Dose: 200 mg Documented by: Vitamin D (Cholecalciferol 1,000 Units 25 Mcg Tab) 5,000 units PO QAM [facility] Stop: 04/11/20 08:59 Last Admin: 03/18/20 08:08 Dose: 5,000 units Documented by: PG Care Time/CCT Total # of Minutes Spent Total Time Spent with Patient: Total time spent is greater than 50% in coordination of care (as documented) at patient's floor/unit and/or counseling patient: Coding Level of Care Code 38959 Subseq Hosp Care Lvl 2 Diagnoses Pneumonia due to 2019-nCoV U07.1; J12.82 Transaminitis R74.01 Anemia D64.9 Anemia type: unspecified type Hypophosphatemia E83.39 B12 deficiency E53.8 Elevated INR R79.1 Metabolic acidosis E87.2 Hypomagnesemia E83.42 Hypokalemia E87.6 Hypothyroid E03.9 Severe protein-calorie malnutrition E43 (1) Anemia Anemia type: unspecified type Qualified Code(s): D64.9 - Anemia, unspecified
[2020-03-18] MEDS: FOLIC ACID 1 MG TAB PO SCH (20:51)
[2020-03-18] MEDS: MIRTAZAPINE SOLTAB 15 MG PO SCH (20:51)
[2020-03-18] MEDS: SERTRALINE HCL 50 MG TABLET PO SCH (20:51)
[2020-03-19] MEDS: ENOXAPARIN INJ 40 MG/0.4 ML SYR SQ SCH ×2 (00:09→11:59)
[2020-03-19] MEDS: LEVOTHYROXINE SODIUM 75 MCG TABLET PO SCH (05:43)
[2020-03-19 07:42] LABS: BUN Creatinine Ratio 13.6 (10-20); Creatinine Clr Calc Pharmacy 115.1 ml/min; Est GFR (African American) 144.2; Est GFR (Non-African American) 124.4; Magnesium 1.7 mg/dl (1.8-2.4); Phosphorus 2.6 mg/dl (2.5-4.9); Potassium 3.4 mmol/L (3.5-5.1)
[2020-03-19] MEDS: MAGNESIUM OXIDE 400 MG TAB PO SCH ×2 (08:21→20:09)
[2020-03-19] MEDS: POTASSIUM CHLORIDE CRTAB 20 MEQ TABCR PO SCH ×3 (08:21→20:21)
[2020-03-19] MEDS: CHOLECALCIFEROL 1,000 UNITS 25 MCG TAB PO SCH (08:21)
[2020-03-19] MEDS: POT PHOSPHATE MONOBASIC W/ SOD TAB PO SCH ×3 (08:22→20:15)
[2020-03-19] MEDS: CALCIUM CARBONATE 1250MG TAB PO SCH ×2 (08:22→20:10)
[2020-03-19] MEDS: BUDESONIDE EC 3 MG CAP PO SCH (08:22)
[2020-03-19] MEDS: CALCITRIOL 0.25 MCG CAPSULE PO SCH ×2 (08:22→20:09)
[2020-03-19] MEDS: FAMOTIDINE 20 MG TAB PO SCH ×2 (08:23→20:16)
[2020-03-19] MEDS: PANCREAZE (LIPASE 10,500U) CAP PO SCH ×3 (10:03→17:56)
[2020-03-19] MEDS: TAMSULOSIN HCL 0.4 MG CAP PO SCH ×2 (10:03→20:13)
[2020-03-19] MEDS: LACTASE 3000 UNIT TAB PO SCH ×3 (10:03→17:56)
--- NOTE | 2020-03-19 10:35 | Nephrology Progress Note ---
Date of Service March 19, 2020 Assessment & Plan (1) Hypocalcemia: Mr. Pascual is a 59-year-old gentleman with a past medical history significant for celiac disease and lymphocytic colitis leading to chronic diarrhea, protein calorie malnutrition and chronic multiple critical electrolyte abnormality in the setting of normal renal function and urinalysis. Has been getting supplement and most of the electrolyte improved except magnesium. --waiting on urine electrolytes, ca K, Mg and phos improved. --continue to replace with oral and IV supplement, calcitriol 1 mcg twice a day --ongoing management of diarrhea Will follow (2) Hypophosphatemia: (3) Hypokalemia: (4) Hypomagnesemia: (5) Severe protein-calorie malnutrition: (6) Lymphocytic colitis: (7) Celiac disease: Admission and Anticipated Discharge Date Admission Date: March 11, 2020 Subjective Mr. Pascual was evaluated this morning with review of clinical parameters including vitals, labs and electrolytes. BP has been low but asymptomatic. Electrolytes improved. Results & Data ([facility]) Vital Signs (Past 12 Hours) Vital Signs Temp Pulse Resp BP BP Pulse Ox 03/19/20 07:24 83 18 98/65 L 100 03/18/20 23:02 36.7 C 86 16 102/65 98 PG Care Time/CCT Total # of Minutes Spent Total Time Spent with Patient: Total time spent is greater than 50% in coordination of care (as documented) at patient's floor/unit and/or counseling patient: Coding Level of Care Code 04711 Subseq Hosp Care Lvl 2 Diagnoses Hypocalcemia E83.51 Hypophosphatemia E83.39 Hypokalemia E87.6 Hypomagnesemia E83.42 Severe protein-calorie malnutrition E43 Lymphocytic colitis K52.832 Celiac disease K90.0
[2020-03-19] MEDS: THIAMINE HCL 100 MG TAB PO SCH ×2 (11:01→20:11)
[2020-03-19 11:14] LABS: Appearance Urine Clear (Clear); Bilirubin Urine Negative (Negative); Blood Urine Negative (Negative); Color Urine Yellow; Glucose Urine UA Negative (Negative); Ketones Urine Negative (Negative); Leukocyte Esterase Urine Negative (Negative); Nitrite Urine Negative (Negative); Protein Urine Negative (Negative); Specific Gravity Urine 1.011 (1.000-1.030); Urobilinogen Urine Negative (Negative); pH Urine 6.5 (4.5-7.5)
[2020-03-19 11:37] LABS: Calcium Urine Random < 5.0 mg/dl; Chloride Random Urine 131 mmol/L; Creatinine Urine Random 34.9 mg/dl; Phosphorus Urine Random 45.9 mg/dl; Potassium Random Urine 33.6 mmol/L; Sodium Random Urine 92 mmol/L
--- NOTE | 2020-03-19 15:45 | Hospitalist Progress Note ---
Date of Service March 19, 2020 Assessment & Plan (1) Pneumonia due to 2019-nCoV: Rikki Pascual 59yo inmate with a PMHx of prior severe electrolyte derangement with hypomagnesemia, hypokalemia, and hypercalcemia, A. fib, hypotension and celiac disease who presents with 3 days of of worsened muscle aches, cramps, and hand contractures with pain who was found to have severe electrolyte abnormalities and Covid positive on admission. Severe electrolyte abnormalities Patient with longstanding history of these issues worsening if illness, unable to take p.o. repletion in the setting of acute illness. Suspect combination of nutritional deficiency with celiac worsened with acute illness. dealing with hypocalcemia, hypomagnesemia, hypophosphatemia and hypokalemia stopped calcium infusion, continue Calcium carbonate 1250mg BID calcium 7.6 corrected today continue Calcitriol 1mcg BID BMP in the AM, plan to discharge on current regimen continue Magnesium oxide 400mg BID Mg 1.7 this morning, repeat tomorrow continue Potassium supplementation TID K low at 3.4, continue TID supplementation, might need 40 TID continue potassium phosphate supplementation Hypertension BP is low normal at 94 systolic Covid positive continues without hypoxia. Dexamethasone, remdesivir, convalescent plasma not indicated - CTA: No evidence of pulmonary emboli. Groundglass opacities of the right middle lobe and lingula are suspicious for an infectious or inflammatory pneumonitis. Mucous plugging, most pronounced in the left lower lobe. No pleural effusion or adenopathy. Covid DVT prophylaxis as below Hypothyroidism Continue Synthroid Celiac Gluten-free diet Continue budesonide Depression Continue Remeron nightly Continue sertraline daily Past history of paroxysmal A. fib Normal sinus rhythm at this time Normal rate at time of assessment Follow clinically Not on anticoagulation move to medical floor DVT prophylaxis: COVID Lovenox dosing. Cr wnl. Diet: Regular, gluten-free. IVFM as above. Defer additional bolus/maintenance at this time given high total volume infusion of electrolyte repletion Disposition: return to [facility] tomorrow CODE STATUS: Full code (2) Anemia: (3) Hypophosphatemia: (4) B12 deficiency: (5) Elevated INR: (6) Metabolic acidosis: (7) Hypomagnesemia: (8) Hypokalemia: (9) Hypothyroid: (10) Severe protein-calorie malnutrition: Admission and Anticipated Discharge Date Admission Date: March 11, 2020 Subjective patient doing well, eating, moving his bowels Ca is 6.0, corrected it is 7.8 Cr is stable discussed with Dr. Evans, plan for discharge tomorrow I notified provider at [facility] about new medications, they will have them tomorrow no fever/chills/sweats, no dyspnea, no cough, no chest pain Review of Systems Review of Systems: All systems reviewed & are unremarkable except as noted in Subjective Physical Exam Constitutional: well developed, + thin and + disheveled; no acute distress Neck: trachea midline, no thyromegaly Respiratory: normal respiratory effort, lungs clear to auscultation Cardiovascular: RRR, no murmur, no edema Gastrointestinal (Abdomen): normal bowel sounds, soft, nontender, no hepatosplenomegaly Musculoskeletal: no cyanosis or clubbing, extremities motor strength 5/5 Skin: no rashes, warm and dry Neurologic: patellar DTR's 2+ bilat, sensation intact and PERRL, EOMI, accommodation nl, no face palsy, no dysarthria Psychiatric: A+Ox3, euthymic affect Lymphatic: no cervical or axillary lymphadenopathy Results & Data Results & Data ([facility]) Vital Signs (Past 12 Hours) Vital Signs Pulse Resp BP Pulse Ox 03/19/20 07:24 83 18 98/65 L 100 Laboratory Results Laboratory Results - last 24 hr 03/19/20 03/19/20 03/19/20 06:34 09:04 09:04 Sodium 141 Potassium 3.4 L Chloride 112 H Carbon Dioxide 24 Anion Gap 5.0 BUN 6 L Creatinine 0.43 L Est Cr Clr Drug Dosing 115.1 Est GFR ( Amer) 144.2 Est GFR (Non-Af Amer) 124.4 BUN/Creatinine Ratio 13.6 Glucose 93 Osmolality 287 Calcium 6.0 L D Ionized Calcium 0.86 L Phosphorus 2.6 Magnesium 1.7 L Albumin 2.0 L Urine Color Urine Appearance Urine pH Ur Specific [place] Urine Protein Urine Glucose (UA) Urine Ketones Urine Blood Urine Nitrite Urine Bilirubin Urine Urobilinogen Ur Leukocyte Esterase Urine Osmolality Ur Random Creatinine Ur Random Sodium Ur Random Potassium Ur Random Chloride Ur Random Phosphorus Ur Random Magnesium Ur Random Calcium 03/19/20 03/19/20 03/19/20 11:00 11:00 11:00 Sodium Potassium Chloride Carbon Dioxide Anion Gap BUN Creatinine Est Cr Clr Drug Dosing Est GFR ( Amer) Est GFR (Non-Af Amer) BUN/Creatinine Ratio Glucose Osmolality Calcium Ionized Calcium Phosphorus Magnesium Albumin Urine Color Yellow Urine Appearance Clear Urine pH 6.5 Ur Specific [place] 1.011 Urine Protein Negative Urine Glucose (UA) Negative Urine Ketones Negative Urine Blood Negative Urine Nitrite Negative Urine Bilirubin Negative Urine Urobilinogen Negative Ur Leukocyte Esterase Negative Urine Osmolality 360 L Ur Random Creatinine 34.9 Ur Random Sodium 92 Ur Random Potassium 33.6 Ur Random Chloride 131 Ur Random Phosphorus 45.9 Ur Random Magnesium 4.5 Ur Random Calcium < 5.0 Medications Administered Current Inpatient Medications Acetaminophen (Acetaminophen 500 Mg Tab) 500 mg PO Q4H PRN PRN Reason: Pain or Fever Stop: 04/10/20 23:45 Lipase/Protease/Amylase (Pancreaze (Lipase 10,500u) Cap) 2 cap PO TIDM [facility] Stop: 04/11/20 07:59 Last Admin: 03/19/20 11:59 Dose: 2 cap Documented by: Budesonide (Budesonide Ec 3 Mg Cap) 3 mg PO DAILY [facility] Stop: 04/11/20 08:59 Last Admin: 03/19/20 08:22 Dose: 3 mg Documented by: Calcitriol (Calcitriol 0.25 Mcg Capsule) 1 mcg PO BID [facility] Stop: 04/17/20 11:59 Last Admin: 03/19/20 08:22 Dose: 1 mcg Documented by: Calcium Carbonate (Calcium Carbonate 1250mg Tab) 1,250 mg PO BID [facility] Stop: 04/10/20 23:45 Last Admin: 03/19/20 08:22 Dose: 1,250 mg Documented by: Enoxaparin Sodium (Enoxaparin Inj 40 Mg/0.4 Ml Syr) 40 mg SQ Q12H [facility] Stop: 04/11/20 00:00 Last Admin: 03/19/20 11:59 Dose: Not Given Documented by: Famotidine (Famotidine 20 Mg Tab) 20 mg PO BID [facility] Stop: 04/10/20 23:45 Last Admin: 03/19/20 08:23 Dose: 20 mg Documented by: Folic Acid (Folic Acid 1 Mg Tab) 1 mg PO HS [facility] Stop: 04/10/20 23:45 Last Admin: 03/18/20 20:51 Dose: 1 mg Documented by: Lactase (Lactase 3000 Unit Tab) 3,000 units PO AC [facility] Stop: 04/11/20 07:29 Last Admin: 03/19/20 11:57 Dose: 3,000 units Documented by: Levothyroxine Sodium (Levothyroxine Sodium 75 Mcg Tablet) 37.5 mcg PO DAILYBB [facility] Stop: 04/13/20 06:29 Last Admin: 03/19/20 05:43 Dose: 37.5 mcg Documented by: Magnesium Oxide (Magnesium Oxide 400 Mg Tab) 400 mg PO BID [facility] Stop: 04/10/20 23:45 Last Admin: 03/19/20 08:21 Dose: 400 mg Documented by: Mirtazapine (Mirtazapine Soltab 15 Mg) 15 mg PO HS [facility] Stop: 04/10/20 23:45 Last Admin: 03/18/20 20:51 Dose: 15 mg Documented by: Ondansetron HCl (Ondansetron Inj 2 Mg/Ml 2 Ml Vial) 4 mg IV Q6H PRN PRN Reason: Nausea Stop: 04/10/20 23:45 Last Admin: 03/18/20 00:28 Dose: 4 mg Documented by: Potassium Chloride (Potassium Chloride Crtab 20 Meq Tabcr) 20 meq PO TID [facility] Stop: 04/15/20 08:59 Last Admin: 03/19/20 13:16 Dose: 20 meq Documented by: Potassium Phosphate (Pot Phosphate Monobasic W/ Sod Tab) 1 tab PO QID [facility] Stop: 04/11/20 08:59 Last Admin: 03/19/20 12:00 Dose: 1 tab Documented by: Sertraline HCl (Sertraline Hcl 50 Mg Tablet) 25 mg PO HS [facility] Stop: 04/10/20 23:45 Last Admin: 03/18/20 20:51 Dose: 25 mg Documented by: Tamsulosin HCl (Tamsulosin Hcl 0.4 Mg Cap) 0.4 mg PO BID [facility] Stop: 04/10/20 23:45 Last Admin: 03/19/20 10:03 Dose: 0.4 mg Documented by: Thiamine HCl (Thiamine Hcl 100 Mg Tab) 200 mg PO BID [facility] Stop: 04/11/20 08:59 Last Admin: 03/19/20 11:01 Dose: 200 mg Documented by: Vitamin D (Cholecalciferol 1,000 Units 25 Mcg Tab) 5,000 units PO QAM [facility] Stop: 04/11/20 08:59 Last Admin: 03/19/20 08:21 Dose: 5,000 units Documented by: PG Care Time/CCT Total # of Minutes Spent Total Time Spent with Patient: Total time spent is greater than 50% in coordination of care (as documented) at patient's floor/unit and/or counseling patient: Coding Level of Care Code 18693 Subseq Hosp Care Lvl 2 Diagnoses Pneumonia due to 2019-nCoV U07.1; J12.82 Anemia D64.9 Anemia type: unspecified type Hypophosphatemia E83.39 B12 deficiency E53.8 Elevated INR R79.1 Metabolic acidosis E87.2 Hypomagnesemia E83.42 Hypokalemia E87.6 Hypothyroid E03.9 Severe protein-calorie malnutrition E43 (1) Anemia Anemia type: unspecified type Qualified Code(s): D64.9 - Anemia, unspecified
[2020-03-19] MEDS: SERTRALINE HCL 50 MG TABLET PO SCH (20:11)
[2020-03-19] MEDS: FOLIC ACID 1 MG TAB PO SCH (20:11)
[2020-03-19] MEDS: MIRTAZAPINE SOLTAB 15 MG PO SCH (20:12)
[2020-03-19] MEDS: ONDANSETRON INJ 2 MG/ML 2 ML VIAL IV PRN (20:15)
[2020-03-20] MEDS: ENOXAPARIN INJ 40 MG/0.4 ML SYR SQ SCH ×2 (00:01→11:47)
[2020-03-20] MEDS: POT PHOSPHATE MONOBASIC W/ SOD TAB PO SCH ×4 (00:01→12:20)
[2020-03-20] MEDS: LEVOTHYROXINE SODIUM 75 MCG TABLET PO SCH (06:00)
[2020-03-20 07:43] LABS: BUN Creatinine Ratio 20.6 (10-20); Calcium 6.3 mg/dl (8.5-10.1); Creatinine Clr Calc Pharmacy 105.3 ml/min; Est GFR (African American) 139.1; Magnesium 1.5 mg/dl (1.8-2.4); Phosphorus 2.2 mg/dl (2.5-4.9); Potassium 3.3 mmol/L (3.5-5.1)
[2020-03-20] MEDS: LACTASE 3000 UNIT TAB PO SCH ×2 (08:05→11:47)
[2020-03-20] MEDS: PANCREAZE (LIPASE 10,500U) CAP PO SCH ×2 (08:30→12:21)
[2020-03-20] MEDS: CHOLECALCIFEROL 1,000 UNITS 25 MCG TAB PO SCH (08:31)
[2020-03-20] MEDS: BUDESONIDE EC 3 MG CAP PO SCH (08:31)
[2020-03-20] MEDS: CALCITRIOL 0.25 MCG CAPSULE PO SCH (08:31)
[2020-03-20] MEDS: THIAMINE HCL 100 MG TAB PO SCH (08:32)
[2020-03-20] MEDS: TAMSULOSIN HCL 0.4 MG CAP PO SCH (08:32)
[2020-03-20] MEDS: MAGNESIUM OXIDE 400 MG TAB PO SCH (08:32)
[2020-03-20] MEDS: CALCIUM CARBONATE 1250MG TAB PO SCH (08:32)
[2020-03-20] MEDS: FAMOTIDINE 20 MG TAB PO SCH (08:36)
[2020-03-20] MEDS: POTASSIUM CHLORIDE CRTAB 20 MEQ TABCR PO SCH ×3 (08:36→13:05)
[2020-03-20] MEDS ORDERED: CALCITRIOL 0.25 MCG CAPSULE PO SCH (09:00)
[2020-03-20] MEDS ORDERED: SPIRONOLACTONE 25 MG TAB PO SCH (09:00)
[2020-03-20] MEDS ORDERED: MAGNESIUM OXIDE 400 MG TAB PO SCH (09:00)
--- NOTE | 2020-03-20 10:41 | Nephrology Progress Note ---
Date of Service March 20, 2020 Assessment & Plan (1) Hypocalcemia: Mr. Pascual is a 59-year-old gentleman with a past medical history significant for celiac disease and lymphocytic colitis leading to chronic diarrhea, protein calorie malnutrition and chronic multiple critical electrolyte abnormality in the setting of normal renal function and urinalysis. Has been getting supplement and most of the electrolyte improved except magnesium. Urine electrolyte was not suggestive of renal magnesium or calcium loss. However, there is some suggestion of renal potassium and phosphate loss as fractional excretion was higher than expected in the setting of hypo kalemia and hypophosphatemia however patient has been on high dose of oral supplement which could contribute to that. --increase the dose of calcitriol to 2 mcg twice a day, increase magnesium oxide to 4 and mg 2 tabs twice a day, potassium supplement 40 mEq t.i.d. and phosphate 2 tabs 4 times a day. --start on spironolactone 25 mg p.o. daily considering relatively low blood pressure, and can be increased as tolerated --will need close outpatient lab monitoring at least once a week to monitor the electrolytes Will sign off, no further nephrology f/u needed at this time. (2) Hypophosphatemia: (3) Hypokalemia: (4) Hypomagnesemia: (5) Severe protein-calorie malnutrition: (6) Lymphocytic colitis: (7) Celiac disease: Admission and Anticipated Discharge Date Admission Date: March 11, 2020 Subjective Mr. Pascual was evaluated this morning, no direct physical exam due to COVID isolation, reviewed clinical parameters including vitals, labs and electrolytes. BP has been low but asymptomatic. Electrolytes improved. Results & Data ([facility]) Vital Signs (Past 12 Hours) Vital Signs Temp Pulse Resp BP Pulse Ox 03/20/20 06:30 36.7 C 80 16 94/64 L 97 03/19/20 23:57 37.5 C 90 16 119/81 97 PG Care Time/CCT Total # of Minutes Spent Total Time Spent with Patient: Total time spent is greater than 50% in coordination of care (as documented) at patient's floor/unit and/or counseling patient: Coding Level of Care Code 20495 Subseq Hosp Care Lvl 3 Diagnoses Hypocalcemia E83.51 Hypophosphatemia E83.39 Hypokalemia E87.6 Hypomagnesemia E83.42 Severe protein-calorie malnutrition E43 Lymphocytic colitis K52.832 Celiac disease K90.0
--- NOTE | 2020-03-20 13:12 | Discharge Summary ---
Date of Service March 20, 2020 Admission HPI Per Admitting Provider Rikki Pascual 59yo inmate with a PMHx of prior severe electrolyte derangement with hypomagnesemia, hypokalemia, and hypercalcemia, A. fib, hypotension and celiac disease who presents with 3 days of of worsened muscle aches, cramps, and hand contractures with pain who was found to have severe electrolyte abnormalities and Covid positive on admission. Rikki reports that his first symptoms began about 1 week ago with increased shortness of breath with ambulation. He endorses a slight increase to an intermittent baseline cough which has worsened and then leveled off in the last 2 to 3 days. He endorses feeling feverish with chills in the last 2 to 3 days. He endorses diarrhea for 2 days improved with medication from the [facility], no diarrhea today. Endorses loss of sense of taste. He reports he has had some intermittent stomachache, but has not had vomiting and has been able to take his medications and has not missed any doses. He endorses that he has had hand cramps and wrist contractions for 2 days which have improved since arriving in the ER. Reports he knows he has been in the hospital but is not sure about his electrolyte instability in the past, and reports he has never seen a nephrologi st for this. He is not sure why his electrolytes have been off in the past. Notes an intact although overall slightly decreased appetite, has a history of celiac disease. Medical history: Reviewed Surgical history: Reviewed Allergies: Reviewed Social: Inmate. Denies tobacco, alcohol, recreational drug use. Reports multiple sick contacts with Covid in the [facility]. CODE STATUS: Full code Principal Diagnosis Electrolyte abnormalities due to malabsorption Discharge Exam Constitutional well developed, + thin and + disheveled; no acute distress Neck trachea midline, no thyromegaly Respiratory normal respiratory effort, lungs clear to auscultation Cardiovascular RRR, no murmur, no edema Gastrointestinal (Abdomen) normal bowel sounds, soft, nontender, no hepatosplenomegaly Musculoskeletal no cyanosis or clubbing, extremities motor strength 5/5 Skin no rashes, warm and dry Neurologic patellar DTR's 2+ bilat, sensation intact and PERRL, EOMI, accommodation nl, no face palsy, no dysarthria Psychiatric A+Ox3, euthymic affect Lymphatic no cervical or axillary lymphadenopathy Discharge Data Allergies Allergy/AdvReac Type Severity Reaction Status Date / Time gluten Allergy Unknown GI SYMPTOMS Verified 03/11/20 17:00 Penicillins Allergy Unknown unknown Verified 03/11/20 17:00 lactose AdvReac Gastrointestinal Verified 03/11/20 17:00 Upset Consultations 03/11/20 16:26 ED Decision to Admit Stat 03/17/20 21:55 Consult Nephrology Routine Ordered Studies 03/11/20 14:34 CT angio chest PE protocol Stat Hospital Course (1) Pneumonia due to 2019-nCoV: Rikki Pascual 59yo inmate with a PMHx of prior severe electrolyte derangement with hypomagnesemia, hypokalemia, and hypercalcemia, A. fib, hypotension and celiac disease who presents with 3 days of of worsened muscle aches, cramps, and hand contractures with pain who was found to have severe electrolyte abnormalities and Covid positive on admission. Severe electrolyte abnormalities Patient with longstanding history of these issues worsening if illness, unable to take p.o. repletion in the setting of acute illness. Suspect combination of nutritional deficiency with celiac worsened with acute illness. dealing with hypocalcemia, hypomagnesemia, hypophosphatemia and hypokalemia stopped calcium infusion, continue Calcium carbonate 1250mg BID calcium close to 8 corrected continue Calcitriol 2mcg BID continue Magnesium oxide 800mg BID Mg 1.7 on discharge continue Potassium chloride 40mEq TID continue potassium phosphate supplementation Dr. Evans added Spironolactone 25mg daily to help prevent potassium losses, monitor blood pressure should check BMP next week and then continue weekly might require periodic IV infusions needs to be strict on gluten free diet as this will make malabsorption worse can follow up with [facility] [place] in clinic as needed Hypertension BP is low normal in high 90's throughout his stay Covid positive continues without hypoxia. Dexamethasone, remdesivir, convalescent plasma not indicated - CTA: No evidence of pulmonary emboli. Groundglass opacities of the right middle lobe and lingula are suspicious for an infectious or inflammatory pneumonitis. Mucous plugging, most pronounced in the left lower lobe. No pleural effusion or adenopathy. Covid DVT prophylaxis as below Hypothyroidism Continue Synthroid Celiac Gluten-free diet Continue budesonide Depression Continue Remeron nightly Continue sertraline daily Past history of paroxysmal A. fib Normal sinus rhythm at this time Normal rate at time of assessment Follow clinically Not on anticoagulation move to medical floor DVT prophylaxis: COVID Lovenox dosing. Cr wnl. Diet: Regular, gluten-free. IVFM as above. Defer additional bolus/maintenance at this time given high total volume infusion of electrolyte repletion Disposition: return to [facility] tomorrow CODE STATUS: Full code (2) Anemia: (3) Hypophosphatemia: (4) B12 deficiency: (5) Elevated INR: (6) Metabolic acidosis: (7) Hypomagnesemia: (8) Hypokalemia: (9) Hypothyroid: (10) Severe protein-calorie malnutrition: Total Time Total Time Spent Total Time Spent (In Minutes): 31 minutes Total Time Includes: Examination of the Patient, Discharge Planning, Medication Reconciliation and Communication With Other Providers (Dr. Duran at [facility], Dr. Evans with nephrology) Discharge Plan Discharge Items [facility] Disposition: [facility] Reason For Visit: COVID, SEVERE ELECTROLYTE DEPLETION Discharge Diagnosis: COVID 19 infection, not severe, no pneumonia Celiac disease with malabsorption Hypocalcemia, hypokalemia, hypomagnesemia, hypophosphatemia Condition on Discharge: Good Goals: continue high doses of supplementation check BMP, mag, phos once a week Activity: Resume your previous activity Weightbearing: Full weightbearing Non-emergency contact: Primary Care Provider Call non-emergency contact if: you have any medication questions Follow-up/Referrals: Mike CHEUNG [Primary Care Provider] - Diet: Gluten Free Addtl Attending Provider Instructions: Medications: note that he is on high doses of supplements to help keep levels close to normal I gave sign out to MISTY at [facility] on 03/19, note that the doses of supplements have been increased even further, is not an issue for discharge since you can just increase dosing and order more CALCITRIOL: 2mcg twice a day to help raise calcium level CALCIUM CARBONATE: 1250mg twice a day POTASSIUM CHLORIDE: 40mEq three times a day MAGNESIUM OXIDE: 800mg twice a day POTASSIUM PHOSPHATE: 2 tablets four times a day SPIRONOLACTONE: 25mg daily to help raise potassium by limiting renal losses blood pressure low normal, see if he tolerates this medication Patient needs to follow gluten free diet, use Budesonide, take supplements recommend checking BMP, magnesium, phosphate on Saturday 03/25 and then repeating weekly COVID 19 infection: positive result but this is NOT a severe infection, never required oxygen, he no longer needs isolation as he is more than 10 days out from positive test Pending Studies at Discharge: No Stand-Alone Forms: My [facility] [address] Skilled Items Patient informed of condition?: Yes Discharge Level of Care: Other Communicable Disease: No Discharge Prognosis: Stable Lines: None Urinary Catheter: No Medications and DC Order Prescriptions: New spironolactone 25 mg Tablet 25 mg PO QAM 30 Days Qty: 30 RF: 3 potassium chloride [Klor-Con M20] 20 mEq Tablet,Er Particles/Crystals 40 meq PO TID 30 Days Qty: 180 RF: 3 magnesium oxide 400 mg (241.3 mg magnesium) Tablet 800 mg PO BID 30 Days Qty: 120 RF: 3 Phospha 250 Neutral 250 mg Tablet 2 tab PO QID 30 Days Qty: 240 RF: 3 calcitriol 0.25 mcg Capsule 2 mcg PO BID 30 Days Qty: 480 RF: 3 calcium carbonate-vitamin D3 [Os-Edmond 500 + D3] 500mg (1,250mg) -600 unit Tabl et 1,250 mg PO BID 30 Days Qty: 150 RF: 3 Continued loperamide 2 mg Tablet 2 mg PO TID RF: 0 levothyroxine 25 mcg Tablet 37.5 mcg PO DAILY RF: 0 sertraline 25 mg Tablet 25 mg PO HS RF: 0 bismuth subsalicylate [[place] Bismuth] 262 mg Tablet,Chewable 3 tab PO TID PRN (Reason: Gi Upset) RF: 0 ibuprofen 600 mg Tablet 600 mg PO TID PRN (Reason: Pain) RF: 0 lactase 3,000 unit tablet 3,000 unit PO AC RF: 0 budesonide [Entocort EC] 3 mg capsule,delayed,extend.release 3 mg PO DAILY RF: 0 thiamine mononitrate (vit B1) [Vitamin B-1 (mononitrate)] 100 mg Tablet 200 mg PO BID RF: 0 cholecalciferol (vitamin D3) [Vitamin D3] 125 mcg (5,000 unit) Tablet 250 mcg PO DAILY RF: 0 tamsulosin 0.4 mg Capsule 0.4 mg PO BID RF: 0 cyanocobalamin (vitamin B-12) 1,000 mcg/mL Solution 1,000 mcg SUBCUT MONTHLY RF: 0 ferrous sulfate 325 mg (65 mg iron) Tablet 325 mg PO HS RF: 0 folic acid 1 mg Tablet 1 mg PO HS RF: 0 mirtazapine 15 mg Tablet,Disintegrating 15 mg PO HS RF: 0 Creon 24,000-76,000 -120,000 unit Capsule,Delayed Release(Dr/Ec) 1 cap PO TIDM RF: 0 famotidine 20 mg Tablet 20 mg PO BID Qty: 60 RF: 5 Discontinued calcium carbonate [Calcium 600] 600 mg calcium (1,500 mg) Tablet 600 mg PO BID RF: 0 potassium chloride [Klor-Con M20] 20 mEq Tablet,Er Particles/Crystals 20 meq PO BID Qty: 60 RF: 0 magnesium oxide 400 mg (241.3 mg magnesium) Tablet 400 mg PO BID Qty: 60 RF: 0 Discharge Orders: Discharge Order (Routine); Ordered 03/20/20 Ordered By: Kiran Fitzpatrick Admission Data Admit Date/Time: 03/11/20 20:22 Attending Provider: Kiran Fitzpatrick Admit Provider: Herbie Baldwin Primary Care Provider: Mike CHEUNG Other Providers: Gabriella Chandra ; Alexandre Mckay Other Interventions: Discharge Summary Assessment (RN) Last Done: 03/20/20 13:40 Coding Level of Care Code D/C Day Management >30 mins Diagnoses Pneumonia due to 2019-nCoV U07.1; J12.82 Anemia D64.9 Anemia type: unspecified type Hypophosphatemia E83.39 B12 deficiency E53.8 Elevated INR R79.1 Metabolic acidosis E87.2 Hypomagnesemia E83.42 Hypokalemia E87.6 Hypothyroid E03.9 Severe protein-calorie malnutrition E43
== END 2020-03-20 16:03 | DRG 640 ==
LOC: ED 13:37 → SUATTDRO 20:22 → 2S 20:22 → 3E 03-18 18:09

== ENCOUNTER 2021-01-14 20:25 | Inpatient (IN) ==
[2021-01-14 21:05] LABS: Basophils # (auto) 0.01 K/uL (0-0.2); Basophils % (auto) 0.1 %; Eosinophils # (auto) 0.01 K/uL (0-0.5); Eosinophils % (auto) 0.1 %; Hematocrit (blood only) 32.5 % (42-52); Hemoglobin 11.1 g/dL (14.0-18.0); Immature Granulocytes # (auto) 0.01 K/uL (0.00-0.02); Immature Granulocytes % (auto) 0.1 %; Lymphocytes # (auto) 1.61 K/uL (1.2-3.4); Lymphocytes % (auto) 22.5 %; Mean Corpuscular Hemoglobin 32.6 pg (25-34); Mean Corpuscular Hgb Conc 34.2 g/dL (32-36); Mean Corpuscular Volume 95.6 fL (80-100); Mean Platelet Volume 10.3 fL (7.4-10.4); Monocytes % (auto) 12.6 %; Neutrophils # (auto) 4.61 K/uL (1.4-6.5); Neutrophils % (auto) 64.6 %; Platelet Count 273 K/uL (130-400); RDW Coefficient of Variation 21.3 % (11.5-14.5); RDW Standard Deviation 75.1 fL (36.4-46.3); White Blood Count 7.15 K/uL (4.8-10.8)
[2021-01-14 21:25] LABS: Anisocytosis Present; Target Cells 1+
[2021-01-14 21:34] LABS: Alanine Aminotransferase 70 U/L (12-78); Albumin Level 1.7 gm/dl (3.4-5.0); Aspartate Aminotransferase 60 U/L (15-37); BUN Creatinine Ratio 16.9 (10-20); Blood Urea Nitrogen 10 mg/dl (7-18); Calcium < 5.0 mg/dl (8.5-10.1); Carbon Dioxide 23 mmol/L (21-32); Chloride 110 mmol/L (98-107); Glucose 76 mg/dl (70-99); Potassium 3.6 mmol/L (3.5-5.1); Sodium 141 mmol/L (136-145)
[2021-01-14 21:36] LABS: Albumin Globulin Ratio 0.4 (0.9-2); Alkaline Phosphatase 308 U/L (45-117); Bilirubin,Total < 0.1 mg/dl (0.2-1); Globulin 4.6 gm/dl (2.5-4.0); Total Protein 6.3 gm/dl (6.4-8.2); Troponin I < 0.015 ng/ml (0-0.045)
[2021-01-14 21:42] LABS: Partial Thromboplastin Ratio 2.2; Prothrombin Time 80.8 Seconds (9.0-12.0)
[2021-01-14 21:50] LABS: INR 9.5 (0.9-1.1); Partial Thromboplastin Time 56.8 Seconds (21.0-31.0)
[2021-01-14] MEDS ORDERED: CALCIUM GLUCONATE 1,000 MG/60 ML BAG IV STA (23:57)
--- NOTE | 2021-01-15 00:13 | History & Physical Report ---
Date of Service January 15, 2021 Assessment & Plan (1) Severe protein-calorie malnutrition: Plan: Severe electrolyte abnormalities Patient with longstanding history, Suspect combination of nutritional deficiency with celiac malabsorption and poor oral intake. - Sodium: 141 on admission. - Potassium:3.6, goal >4 with hx PAF. oral supplementation - Magnesium: 1.3 on admission, replete with IV mag sulfate - Calcium: <5 on admission. Corrected to 6.8 for hypoalbuminemia. Ionized Calcium 0.69. Received Calcium gluconate 1g x 2 doses in ER. - continue calcitriol, calcium carbonate supplements. - continue Vit D, folate, B12 supplementation with hx deficiencies - trend CMP, Mag, Phos daily - telemetry monitoring for arrhythmia potential with electrolyte derangements Supratherapeutic INR - INR 9, goal 2-3 for chronic DVT - Vit K 10 mg IV x 1 in ER - likely secondary to reduced vitamin K intake in diet - hold warfarin until therapeutic - daily PT/INR Severe Protein calorie malnutrition - regular diet with boost supplementation - monitor for refeeding syndrome with electrolytes as above - mirtazipine HS - abd pain due to worsening GERD? Gastroparesis? PPI would worsen malabsorption of nutrients Long QT - EKG showing QTc 533 - zofran soltab x1 for nausea. consider alternate options for nausea control - risk of QT prolongation vs. extrapyramidal symptoms in underweight individual with baseline muscle stiffness and tetany Chronic Conditions Hypothyroidism: continue levothyroxine Lactose Intolerance: lactase with milk products Mood Disorder? previously on sertraline, med rec now showing buspar 5 mg bid DVT ppx: holding while supratherapeutic FEN/GI: regular diet, boost supplements as above Bowel regimen: hx chronic diarrhea, NA Code Status: Full Code Dispo: Med/Tele (2) Hypocalcemia: (3) Supratherapeutic INR: (4) Chronic deep vein thrombosis (DVT): (5) GERD (gastroesophageal reflux disease): (6) PAF (paroxysmal atrial fibrillation): (7) Celiac disease: History of Present Illness Primary Care Provider: SKYE Mckeon 60 yo M with hx severe protein calorie malnutrition, PAF, chronic DVT, brought the ER from [facility] for severe muscle spasm. Upon presentation in the ER, patient was unable to move his arms due to tetany. Lab evaluation showed Ca < 5. Function improved slightly after administration of 1g Ca gluconate in ER. Mr. Pascual states he's been feeling ill for a few days. He eats a diet of mostly rice, potatoes, chips and tea. Says he isn't given/able to eat much meat, made no mention of any vegetable intake. He also states that he is given Ensure drinks at the assisted but isn't able to tolerate drinking those compared to the Boost at the hospital, and hasn't been gaining any weight despite trying to eat rice and potatoes. He says he tries to take all of his medications but he has been unable to keep them down for the last day due to nausea and emesis. No diarrhea or pain with urination. He states he's had worsening left sided abdominal pain, and indicates pain over his lower left ribcage. Allergies Allergy/AdvReac Type Severity Reaction Status Date / Time Penicillins Allergy Unknown unknown Verified 01/15/21 02:04 gluten AdvReac Unknown GI SYMPTOMS Verified 01/15/21 03:31 lactose AdvReac Gastrointestinal Verified 01/15/21 02:04 Upset Home Medications Medication Instructions Recorded Confirmed Type acetaminophen 500 mg tablet 500 mg PO TID PRN 01/15/21 01/15/21 History (Tylenol Extra Strength) buspirone 5 mg tablet 5 mg PO BID 01/15/21 01/15/21 History calcitriol 0.5 mcg capsule 1 mcg PO BID 01/15/21 01/15/21 History calcium carbonate 200 mg calcium 0 mg PO TID PRN 01/15/21 01/15/21 History (500 mg) chewable tablet (Tums) cholecalciferol (vitamin D3) 25 125 mcg PO DAILY 01/15/21 01/15/21 History mcg (1,000 unit) tablet (Vitamin D3) ciclesonide 80 mcg/actuation 1 puff INHALATION BID 01/15/21 01/15/21 History aerosol inhaler (Alvesco) cyanocobalamin (vitamin B-12) 1,000 mcg SUBCUT MO 01/15/21 01/15/21 History 1,000 mcg/mL injection solution folic acid 1 mg tablet 1 mg PO HS 01/15/21 01/15/21 History lactase 3,000 unit tablet 3,000 unit PO .QID UD PRN 01/15/21 01/15/21 History levalbuterol tartrate 45 2 inh INHALATION QID PRN 01/15/21 01/15/21 History mcg/actuation aerosol inhaler (Xopenex HFA) levothyroxine 25 mcg tablet 37.5 mcg PO DAILY 01/15/21 01/15/21 History [id number]-[id number]-cakswvg 1 cap PO TIDM 01/15/21 01/15/21 History 24,000-76,000-120,000 unit capsule,delayed rel (Creon) magnesium oxide 800 mg PO BID 01/15/21 01/15/21 History methyl salicylate-menthol topical 1 ea TOPICAL .UD 01/15/21 01/15/21 History ointment mirtazapine 15 mg tablet 15 mg PO HS 01/15/21 01/15/21 History tamsulosin 0.4 mg capsule 0.4 mg PO HS 01/15/21 01/15/21 History Past Med/Surg History Medical History (Updated 01/15/21 @ 10:20 by Herbie Baldwin MD) Anemia B12 deficiency BPH (benign prostatic hyperplasia) Celiac disease Chronic deep vein thrombosis (DVT) Coagulopathy Elevated INR GERD (gastroesophageal reflux disease) Hypoglycemia Hypothyroid Inguinal hernia Metabolic acidosis Prolonged Q-T interval on ECG SBO (small bowel obstruction) Vitamin K deficiency Surgical History (Updated 01/15/21 @ 03:14 by Larisa Resendiz MD) H/O splenectomy Family History Other No pertinent family history Social History Smoking Status: Never smoker Second Hand Exposure: No; Hx Alcohol Use: No Hx Substance Use: No Preferred Language: Persian Communication Ability: Effective Polisher Aluminum Required: No Beliefs That Will Affect Care: None marital status: Unknown Current Living Situation: Other Feels Safe at Home: Yes Assistive Devices: None Review of Systems Constitutional: no fever, no chills, no body aches and no fatigue Respiratory: no cough and no dyspnea Cardiovascular: no chest pain, no dyspnea and no edema Gastrointestinal: + abdominal pain, + nausea and + vomiting; no constipation and no diarrhea/loose stools Musculoskeletal: + stiffness and + limited range of motion Neurologic: + loss of sensation, + tingling and + numbness; no dizziness and no confusion Physical Exam Physical Exam: Constitutional: cachectic, disheveled, not in acute distress Eyes: EOMI, pupils equal and reactive bilaterally, no scleral icterus Cardiac: RRR, no murmurs, gallops or rubs. Normal S1, S2 Pulm: CTA BL, no wheezes, rhonchi, crackles or rubs, moving air well throughout both lungs, chest wall easily discernable due to malnutrition Abd: scaphoid abdomen, soft, tender to palpation of epigastrium, nondistended, normal bowel sounds, no rebound or guarding Extremities: 1+ peripheral pulses, no edema Neuro: no focal deficits, moving all 4 limbs, A&Ox3 Results & Data Results & Data ([place]) Vital Signs (Past 12 Hours) Vital Signs Temp Pulse Pulse Resp BP BP Pulse Ox 01/14/21 23:34 90 16 107/89 96 01/14/21 20:30 36.7 C 96 H 16 93/66 L 100 Supervising Physician Co-Signing Physician Notes Attending addendum: I have physically seen this patient, have supervised the medical residents activities, and agree with the H&P unless as otherwise noted. Assessment and Plan: Progressive severe protein calorie malnutrition/electrolyte disturbances Multifactorial: Celiac absorption, poor oral intake Magnesium 1.3 by [place], replacing with IV neck sulfate Corrected calcium 6.8, verified with ionized calcium 6.9, replaced with calcium gluconate 2 g IV Repeat laboratories in a.m. Continue vitamin D, folate, B12 and Nephrocap replacements Follow on telemetry until electrolytes normalized Supratherapeutic INR- INR 9.5 upon admission We will give vitamin K 10 mg IV x1 now, repeat labs in a.m. Hold warfarin, will need to decide if this is his best option for anticoagulation Remaining orders and notations as noted Resident Activity Tracking Resident Involvement: Resident Care Provided Care Provided: Adult Hospital Medicine
[2021-01-15] MEDS ORDERED: PHYTONADIONE 10 MG in SODIUM CHLORIDE 0.9% 50 ML IV ONE (00:25)
[2021-01-15 00:36] LABS: Magnesium 1.3 mg/dl (1.8-2.4)
[2021-01-15] MEDS ORDERED: CALCIUM GLUCONATE 1,000 MG/60 ML BAG IV STA (01:21)
[2021-01-15] MEDS ORDERED: ONDANSETRON 4 MG OD TAB PO PRN (02:23)
[2021-01-15] MEDS ORDERED: ONDANSETRON INJ 2 MG/ML 2 ML VIAL IV PRN (03:21)
[2021-01-15] MEDS ORDERED: MAGNESIUM SULFATE 1GM / D5W BAG IV ONE (03:31)
[2021-01-15] MEDS: MAGNESIUM SULFATE / D5W 1 GM/100 ML BAG IV SCH ×2 (03:44→05:50)
[2021-01-15] MEDS ORDERED: PROCHLORPERAZINE 5 ML IV ONE (04:06)
[2021-01-15] MEDS ORDERED: PROCHLORPERAZINE 1 ML IV ONE (04:20)
[2021-01-15] MEDS ORDERED: SODIUM CHLORIDE 0.9% 1000ML 1,000 ML IV ONE (06:30)
--- NOTE | 2021-01-15 06:47 | Emergency Department Note ---
Impression & Plan Hypocalcemia, Supratherapeutic INR Admit to the [facility] service ED Provider Note NAME: SAMIRDEBBI Parsons [id number] PICK AGE: 60 SEX: M ARRIVES VIA: Walk-In INFORMANT: Patient ED PROVIDER(S): Kayla Machado DO CHIEF COMPLAINT: Bilateral hand cramping; left sided rib pain PLAN: Disposition: Admit to the [facility] Condition: Stable MEDICAL DECISION MAKING: This is a 60-year-old male patient who presents to the emergency department with pain in both of his hands and discomfort beneath his left inferior rib cage. Patient also complains of some discomfort in his tailbone. Patient is noted to be significantly hypocalcemic which is a chronic condition for this patient from significant malnutrition. Patient also has an INR greater than 9 with no obvious source of bleeding at the this time. The patient's blood pressure is intermittently less than 100. He is mentating normally. [facility] for [facility] management. Patient was treated with IV normal saline, IV calcium gluconate, and IV vitamin K. Triage Nursing notes reviewed and agree with them. Prior medical records reviewed Vital Signs: reviewed and remarkable for hypotension Differential diagnosis: Hypocalcemia, dehydration, supratherapeutic INR ER treatment provided: IV normal saline bolus IV calcium gluconate IV vitamin K Diagnostics interpreted by me: Cardiac Monitoring: Normal sinus rhythm at 90 Laboratory studies: See below HPI: 60/M arrives for evaluation of bilateral hand pain, left lower rib cage pain, and tailbone pain. Patient states that he has had intermittent pain in both of his hands and arms for the past 3 weeks. He has noticed some numbness to the left upper quadrant and left lower quadrant of his abdomen and some pain underneath of the rib cage that extends down into his left hip and left leg. Patient also describes pain in his tailbone. ROS: See above HPI for pertinent positives & negatives. A total of 10 systems reviewed and were otherwise negative. PAST MEDICAL HISTORY:See Below PAST SURGICAL HISTORY:See Below FAMILY HISTORY:See Below SOCIAL HISTORY:The patient is a prisoner from [facility] MEDICATIONS:See list ALLERGIES:See list VITALS:See Below PHYSICAL EXAMINATION: General: This is a 60-year-old male patient who is cachectic appearing on exam. HEENT: Head - normocephalic and atraumatic. Pupils are equal, round, and reactive to light. Extraocular eye muscles are intact, and sclera are anicteric. Nose - moist nasal mucosa without discharge. Mouth - moist buccal mucosa. Oropharynx is nonerythematous and there is no tonsillar exudate or edema noted. Neck: Supple; no cervical lymphadenopathy or JVD Heart: Regular rate and rhythm. There is a normal S1 and S2 with no murmurs, clicks, or gallops appreciated. Lungs: Diminished breath sounds in all dumont Abdomen: Soft, there is mild discomfort with palpation over the left flank. The rest of the abdomen is scaphoid and nondistended, with good bowel sounds. There are no palpable pulsatile masses or hepatosplenomegaly. There is no guarding, rigidity, or rebound noted. Extremities: No evidence of cyanosis, clubbing, or edema. There are easily palpable peripheral pulses. Skin: warm and dry with good turgor and no rashes. ED COURSE: Times/Reassessments: 2340: The patient was evaluated in room A11B. A complete history and physical was performed. Covid testing was performed. Previous electronic medical records were reviewed. IV lock was initiated and labs are drawn as above. The patient was bolused with IV normal saline and started on IV calcium gluconate. An order was placed for continuous cardiac monitoring. The patient was in a normal sinus rhythm at a rate of 90. I discussed the case with the [facility] hospitalist and they will evaluate for further management. I have personally spent greater than 30 minutes of critical care time in the direct management of this patient. This includes bedside care, interpretation of diagnostic studies, and testing, discussion with consultants, patient, and family members, and other required patient management activities. This 30 minutes is in excess of all separately billable procedures. Kayla Machado DO Past Med/Surg History Medical History (Updated 01/16/21 @ 23:32 by Kayla Machado DO) Anemia B12 deficiency BPH (benign prostatic hyperplasia) Celiac disease Chronic deep vein thrombosis (DVT) Coagulopathy Elevated INR GERD (gastroesophageal reflux disease) Hypoglycemia Hypothyroid Inguinal hernia Metabolic acidosis Prolonged Q-T interval on ECG SBO (small bowel obstruction) Vitamin K deficiency Surgical History (Updated 01/15/21 @ 03:14 by Larisa Resendiz MD) H/O splenectomy Family History Other No pertinent family history Social History Smoking Status: Former smoker Second Hand Exposure: No; Hx Alcohol Use: Yes Alcohol type: beer Hx Substance Use: No Preferred Language: Vietnamese Communication Ability: Effective [employer]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 Beliefs That Will Affect Care: None marital status: Unknown Current Living Situation: Other Current Living Situation Comment: [facility] Feels Safe at Home: Yes Assistive Devices: None Allergies Allergies Allergy/AdvReac Type Severity Reaction Status Date / Time Penicillins Allergy Unknown unknown Verified 01/15/21 02:04 gluten AdvReac Unknown GI SYMPTOMS Verified 01/15/21 03:31 lactose AdvReac Gastrointestinal Verified 01/15/21 02:04 Upset Home Meds Home Medications Medication Instructions Recorded Confirmed acetaminophen 500 mg tablet 500 mg PO TID PRN 01/15/21 01/15/21 (Tylenol Extra Strength) buspirone 5 mg tablet 5 mg PO BID 01/15/21 01/15/21 calcitriol 0.5 mcg capsule 1 mcg PO BID 01/15/21 01/15/21 calcium carbonate 200 mg calcium 0 mg PO TID PRN 01/15/21 01/15/21 (500 mg) chewable tablet (Tums) cholecalciferol (vitamin D3) 25 125 mcg PO DAILY 01/15/21 01/15/21 mcg (1,000 unit) tablet (Vitamin D3) ciclesonide 80 mcg/actuation 1 puff INHALATION BID 01/15/21 01/15/21 aerosol inhaler (Alvesco) cyanocobalamin (vitamin B-12) 1,000 mcg SUBCUT MO 01/15/21 01/15/21 1,000 mcg/mL injection solution folic acid 1 mg tablet 1 mg PO HS 01/15/21 01/15/21 lactase 3,000 unit tablet 3,000 unit PO .QID UD PRN 01/15/21 01/15/21 levalbuterol tartrate 45 2 inh INHALATION QID PRN 01/15/21 01/15/21 mcg/actuation aerosol inhaler (Xopenex HFA) levothyroxine 25 mcg tablet 37.5 mcg PO DAILY 01/15/21 01/15/21 [id number] 1 cap PO TIDM 01/15/21 01/15/21 24,000-76,000-120,000 unit capsule,delayed rel (Creon) magnesium oxide 800 mg PO BID 01/15/21 01/15/21 methyl salicylate-menthol topical 1 ea TOPICAL .UD 01/15/21 01/15/21 ointment mirtazapine 15 mg tablet 15 mg PO HS 01/15/21 01/15/21 tamsulosin 0.4 mg capsule 0.4 mg PO HS 01/15/21 01/15/21 Results & Data (ED) Vital Signs Vital Signs - 24 hr 01/14/21 20:30 01/14/21 23:27 01/14/21 23:34 Temperature 36.7 C Temperature Source Oral Pulse Rate 96 H 92 H Pulse Rate [Right] 90 Pulse Rhythm [Right] Regular Respiratory Rate 16 13 16 Respiratory Effort / Characteristics Non-Labored Spontaneous Non-Labored Respiratory Depth Normal Normal Blood Pressure 93/66 L 107/89 Blood Pressure [Right Arm] 107/89 Blood Pressure Mean 75 95 Blood Pressure Mean [Right Arm] 95 Blood Pressure Position Sitting Blood Pressure Position [Right Arm] Lying Pulse Oximetry 100 99 96 Oxygen Delivery Method Room Air Room Air Room Air Sepsis Recent Fever Within 48 Hours No Sepsis New/Unexplained Change in Mental Status N/A Sepsis Action Taken by Nursing No Action Required Laboratory Data Result diagrams: 01/14/21 20:55 01/16/21 08:34 Lab Results 01/14/21 01/14/21 01/14/21 Range/Units 20:55 20:55 20:55 WBC 7.15 (4.8-10.8) K/uL RBC 3.40 L (4.7-6.1) M/uL Hgb 11.1 L (14.0-18.0) g/dL Hct 32.5 L (42-52) % MCV 95.6 (80-100) fL MCH 32.6 (25-34) pg MCHC 34.2 (32-36) g/dL RDW Std Deviation 75.1 H (36.4-46.3) fL RDW Coeff of Tevin 21.3 H (11.5-14.5) % Plt Count 273 (130-400) K/uL MPV 10.3 (7.4-10.4) fL Immature Gran % (Auto) 0.1 % Neut % (Auto) 64.6 % Lymph % (Auto) 22.5 % [place] % (Auto) 12.6 % Eos % (Auto) 0.1 % Baso % (Auto) 0.1 % Neut # (Auto) 4.61 (1.4-6.5) K/uL Lymph # (Auto) 1.61 (1.2-3.4) K/uL [place] # (Auto) 0.90 H (0.11-0.59) K/uL Eos # (Auto) 0.01 (0-0.5) K/uL Baso # (Auto) 0.01 (0-0.2) K/uL Immature Gran # (Auto) 0.01 (0.00-0.02) K/uL Anisocytosis Present Pappenheimer Bodies 1+ Target Cells 1+ [place] Bodies Occasional PT 80.8 H (9.0-12.0) Seconds INR 9.5 H* (0.9-1.1) APTT 56.8 H* (21.0-31.0) Seconds PTT Ratio 2.2 Sodium 141 (136-145) mmol/L Potassium 3.6 (3.5-5.1) mmol/L Chloride 110 H (98-107) mmol/L Carbon Dioxide 23 (21-32) mmol/L Anion Gap 8.0 (3-11) BUN 10 (7-18) mg/dl Creatinine 0.61 (0.6-1.4) mg/dl Est Cr Clr Drug Dosing Not Reportable Est GFR ( Amer) 124.0 ml/min Est GFR (Non-Af Amer) 107.0 ml/min BUN/Creatinine Ratio 16.9 (10-20) Glucose 76 (70-99) mg/dl Calcium < 5.0 L* (8.5-10.1) mg/dl Magnesium 1.3 L (1.8-2.4) mg/dl Total Bilirubin < 0.1 L (0.2-1) mg/dl AST 60 H (15-37) U/L ALT 70 (12-78) U/L Alkaline Phosphatase 308 H (45-117) U/L Troponin I < 0.015 (0-0.045) ng/ml Total Protein 6.3 L (6.4-8.2) gm/dl Albumin 1.7 L (3.4-5.0) gm/dl Globulin 4.6 H (2.5-4.0) gm/dl Albumin/Globulin Ratio 0.4 L (0.9-2) Administered Medications Acetaminophen (Acetaminophen 325 Mg Tab) 650 mg PO Q4H PRN PRN Reason: Pain or Fever Stop: 02/14/21 03:20 Last Admin: 01/16/21 02:34 Dose: 650 mg Documented by: [id number] Lipase/Protease/Amylase (Pancreaze (Lipase 10,500u) Cap) 2 cap PO TIDM TIMOTEO Stop: 02/14/21 07:59 Last Admin: 01/16/21 17:18 Dose: 2 cap Documented by: [id number] Admin: 01/16/21 11:49 Dose: 2 cap Documented by: [id number] Admin: 01/16/21 07:30 Dose: 2 cap Documented by: [id number] Admin: 01/15/21 17:48 Dose: 2 cap Documented by: [id number] Admin: 01/15/21 12:31 Dose: 2 cap Documented by: [id number] Admin: 01/15/21 08:08 Dose: 2 cap Documented by: [id number] Buspirone HCl (Buspirone 5 Mg Tab) 5 mg PO BID TIMOTEO Stop: 02/14/21 08:59 Last Admin: 01/16/21 20:56 Dose: 5 mg Documented by: [id number] Admin: 01/16/21 07:29 Dose: 5 mg Documented by: [id number] Admin: 01/15/21 20:05 Dose: 5 mg Documented by: [id number] Admin: 01/15/21 08:07 Dose: 5 mg Documented by: [id number] Calcitriol (Calcitriol 0.25 Mcg Capsule) 2 mcg PO BID TIMOTEO Stop: 02/14/21 08:59 Last Admin: 01/16/21 20:57 Dose: 2 mcg Documented by: [id number] Admin: 01/16/21 07:22 Dose: 2 mcg Documented by: [id number] Admin: 01/15/21 20:05 Dose: 2 mcg Documented by: [id number] Admin: 01/15/21 08:08 Dose: 2 mcg Documented by: [id number] Calcium Carbonate (Calcium Carbonate 1250mg Tab) 1,250 mg PO BID TIMOTEO Stop: 02/14/21 08:59 Last Admin: 01/16/21 20:57 Dose: 1,250 mg Documented by: [id number] Admin: 01/16/21 07:23 Dose: 1,250 mg Documented by: [id number] Admin: 01/15/21 20:12 Dose: 1,250 mg Documented by: [id number] Admin: 01/15/21 08:08 Dose: 1,250 mg Documented by: [id number] Famotidine (Famotidine 20 Mg Tab) 20 mg PO BID TIMOTEO Stop: 02/14/21 08:59 Last Admin: 01/16/21 20:58 Dose: 20 mg Documented by: [id number] Admin: 01/16/21 07:22 Dose: 20 mg Documented by: [id number] Admin: 01/15/21 20:04 Dose: 20 mg Documented by: [id number] Admin: 01/15/21 08:07 Dose: 20 mg Documented by: [id number] Ferrous Sulfate (Ferrous Sulfate 325 Mg Tab) 325 mg PO HS TIMOTEO Stop: 02/14/21 20:59 Last Admin: 01/16/21 20:58 Dose: 325 mg Documented by: [id number] Admin: 01/15/21 20:12 Dose: 325 mg Documented by: [id number] Fluticasone Furoate (Fluticasone Furoate 200mcg 14 Puffs/Inhaler) 1 puffs INH DAILY TIMOTEO Stop: 02/14/21 08:59 Last Admin: 01/16/21 07:30 Dose: 1 puffs Documented by: [id number] Admin: 01/15/21 08:09 Dose: 1 puffs Documented by: [id number] Folic Acid (Folic Acid 1 Mg Tab) 1 mg PO HS TIMOTEO Stop: 02/14/21 20:59 Last Admin: 01/16/21 20:59 Dose: 1 mg Documented by: [id number] Admin: 01/15/21 20:10 Dose: 1 mg Documented by: [id number] Lactase (Lactase 3000 Unit Tab) 3,000 units PO AC TIMOTEO Stop: 02/14/21 07:29 Last Admin: 01/16/21 17:18 Dose: 3,000 units Documented by: [id number] Admin: 01/16/21 11:49 Dose: 3,000 units Documented by: [id number] Admin: 01/16/21 06:21 Dose: 3,000 units Documented by: [id number] Admin: 01/15/21 17:48 Dose: 3,000 units Documented by: [id number] Admin: 01/15/21 12:31 Dose: 3,000 units Documented by: [id number] Admin: 01/15/21 08:08 Dose: 3,000 units Documented by: [id number] Levothyroxine Sodium (Levothyroxine Sodium 75 Mcg Tablet) 37.5 mcg PO DAILYBB TIMOTEO Stop: 02/14/21 06:29 Last Admin: 01/16/21 06:21 Dose: 37.5 mcg Documented by: [id number] Admin: 01/15/21 08:05 Dose: 37.5 mcg Documented by: [id number] Magnesium Oxide (Magnesium Oxide 400 Mg Tab) 800 mg PO BID TIMOTEO Stop: 02/14/21 08:59 Last Admin: 01/16/21 20:59 Dose: 800 mg Documented by: [id number] Admin: 01/16/21 07:23 Dose: 800 mg Documented by: [id number] Admin: 01/15/21 20:10 Dose: 800 mg Documented by: [id number] Admin: 01/15/21 08:07 Dose: 800 mg Documented by: [id number] Mirtazapine (Mirtazapine Soltab 15 Mg) 15 mg PO HS TIMOTEO Stop: 02/14/21 20:59 Last Admin: 01/16/21 20:59 Dose: 15 mg Documented by: [id number] Admin: 01/15/21 20:04 Dose: 15 mg Documented by: [id number] Potassium Phosphate (Pot Phosphate Monobasic W/ Sod Tab) 2 tab PO QID TIMOTEO Stop: 02/14/21 08:59 Last Admin: 01/16/21 21:00 Dose: 2 tab Documented by: [id number] Admin: 01/16/21 17:19 Dose: 2 tab Documented by: [id number] Admin: 01/16/21 13:31 Dose: 2 tab Documented by: [id number] Admin: 01/16/21 07:29 Dose: 2 tab Documented by: [id number] Admin: 01/15/21 21:04 Dose: 2 tab Documented by: [id number] Admin: 01/15/21 17:48 Dose: 2 tab Documented by: [id number] Admin: 01/15/21 12:31 Dose: 2 tab Documented by: [id number] Admin: 01/15/21 08:09 Dose: 2 tab Documented by: [id number] Spironolactone (Spironolactone 25 Mg Tab) 25 mg PO QAM TIMOTEO Stop: 02/14/21 08:59 Last Admin: 01/16/21 07:31 Dose: 25 mg Documented by: [id number] Admin: 01/15/21 08:07 Dose: 25 mg Documented by: [id number] Tamsulosin HCl (Tamsulosin Hcl 0.4 Mg Cap) 0.4 mg PO BID TIMOTEO Stop: 02/14/21 08:59 Last Admin: 01/16/21 21:00 Dose: 0.4 mg Documented by: [id number] Admin: 01/16/21 07:23 Dose: 0.4 mg Documented by: [id number] Admin: 01/15/21 20:11 Dose: 0.4 mg Documented by: [id number] Admin: 01/15/21 08:07 Dose: 0.4 mg Documented by: [id number] Thiamine HCl (Thiamine Hcl 100 Mg Tab) 200 mg PO BID TIMOTEO Stop: 02/14/21 08:59 Last Admin: 01/16/21 21:01 Dose: 200 mg Documented by: [id number] Admin: 01/16/21 07:24 Dose: 200 mg Documented by: [id number] Admin: 01/15/21 20:10 Dose: 200 mg Documented by: [id number] Admin: 01/15/21 08:07 Dose: 200 mg Documented by: [id number] Vitamin D (Cholecalciferol 1,000 Units 25 Mcg Tab) 4,000 units PO DAILY TIMOTEO Stop: 02/14/21 09:14 Last Admin: 01/16/21 07:24 Dose: 4,000 units Documented by: [id number] Admin: 01/15/21 10:15 Dose: 4,000 units Documented by: [id number] Discontinued Medications Diphenhydramine HCl (Diphenhydramine 50 Mg/Ml Vial) 50 mg IV NOW STA Stop: 01/15/21 19:58 Last Admin: 01/15/21 20:23 Dose: 50 mg Documented by: [id number] Diphenhydramine HCl (Diphenhydramine 50 Mg/Ml Vial) 50 mg IV NOW STA Stop: 01/16/21 02:50 Last Admin: 01/16/21 03:02 Dose: 50 mg Documented by: [id number] Diphenhydramine HCl (Diphenhydramine 50 Mg/Ml Vial) 50 mg IV NOW STA Stop: 01/16/21 20:03 Last Admin: 01/16/21 20:34 Dose: 50 mg Documented by: [id number] Calcium Gluconate () 1,000 mg in 60 mls @ 240 mls/hr IV NOW STA Stop: 01/15/21 00:11 Last Infusion: 01/15/21 00:38 Dose: 0 mls/hr Documented by: [id number] Admin: 01/15/21 00:13 Dose: 240 mls/hr Documented by: [id number] Phytonadione 10 mg/ Sodium (Chloride) 51 mls @ 102 mls/hr IV ONE ONE Stop: 01/15/21 00:54 Last Infusion: 01/15/21 01:23 Dose: 0 mls/hr Documented by: [id number] Admin: 01/15/21 00:47 Dose: 102 mls/hr Documented by: [id number] Calcium Gluconate () 1,000 mg in 60 mls @ 240 mls/hr IV NOW STA Stop: 01/15/21 01:35 Last Infusion: 01/15/21 02:57 Dose: 0 mls/hr Documented by: [id number] Admin: 01/15/21 02:26 Dose: 240 mls/hr Documented by: [id number] Magnesium Sulfate/Dextrose (Magnesium Sulfate / D5w) 1 gm in 100 mls @ 50 mls/hr IV Q2H TIMOTEO Stop: 01/15/21 07:29 Last Infusion: 01/15/21 08:04 Dose: 0 mls/hr Documented by: [id number] Admin: 01/15/21 05:50 Dose: 50 mls/hr Documented by: [id number] Infusion: 01/15/21 05:44 Dose: 50 mls/hr Documented by: [id number] Admin: 01/15/21 03:44 Dose: 50 mls/hr Documented by: [id number] Prochlorperazine (Compazine) 1 mls @ 1 mls/min IV ONE ONE Stop: 01/15/21 04:21 Last Admin: 01/15/21 04:24 Dose: 1 mls/min Documented by: [id number] Sodium Chloride (Nss 1000ml) 1,000 mls @ 999 mls/hr IV .Q1H1M ONE Stop: 01/15/21 07:30 Last Infusion: 01/15/21 08:04 Dose: 0 mls/hr Documented by: [id number] Admin: 01/15/21 06:42 Dose: 999 mls/hr Documented by: [id number] Calcium Gluconate 2,000 mg/ (Sodium Chloride) 70 mls @ 240 mls/hr IV 0930 ONE Stop: 01/15/21 09:47 Last Infusion: 01/15/21 10:38 Dose: 0 mls/hr Documented by: [id number] Admin: 01/15/21 10:16 Dose: 240 mls/hr Documented by: [id number] Potassium Chloride (K Rhys / Wtr) 10 meq in 100 mls @ 100 mls/hr IV Q1H TIMOTEO Stop: 01/15/21 14:44 Last Infusion: 01/15/21 16:46 Dose: 0 mls/hr Documented by: [id number] Admin: 01/15/21 15:15 Dose: 75 mls/hr Documented by: [id number] Infusion: 01/15/21 15:10 Dose: 0 mls/hr Documented by: [id number] Admin: 01/15/21 13:32 Dose: 100 mls/hr Documented by: [id number] Infusion: 01/15/21 13:31 Dose: 100 mls/hr Documented by: [id number] Admin: 01/15/21 12:31 Dose: 100 mls/hr Documented by: [id number] Potassium Phosphate 15 mmol/ (Sodium Chloride) 255 mls @ 102 mls/hr IV 1230 ONE Stop: 01/15/21 14:59 Last Admin: 01/15/21 14:40 Dose: Not Given Documented by: [id number] Calcium Gluconate 11,000 mg/ (Dextrose) 1,000 mls @ 50 mls/hr IV .Q20H TIMOTEO Stop: 01/16/21 12:30 Last Admin: 01/16/21 12:34 Dose: Not Given Documented by: [id number] Infusion: 01/16/21 12:34 Dose: 0 mls/hr Documented by: [id number] Infusion: 01/16/21 10:58 Dose: 50 mls/hr Documented by: [id number] Infusion: 01/16/21 07:22 Dose: 0 mls/hr Documented by: [id number] Admin: 01/15/21 15:25 Dose: 50 mls/hr Documented by: [id number] Magnesium Sulfate/Dextrose (Magnesium Sulfate / D5w) 1 gm in 100 mls @ 50 mls/hr IV Q2H TIMOTEO Stop: 01/16/21 14:44 Last Infusion: 01/16/21 16:02 Dose: 0 mls/hr Documented by: [id number] Admin: 01/16/21 13:34 Dose: 50 mls/hr Documented by: [id number] Infusion: 01/16/21 13:34 Dose: 50 mls/hr Documented by: [id number] Admin: 01/16/21 11:49 Dose: 50 mls/hr Documented by: [id number] Calcium Gluconate 1,000 mg/ (Sodium Chloride) 60 mls @ 240 mls/hr IV NOW STA Stop: 01/16/21 18:57 Last Infusion: 01/16/21 21:18 Dose: 0 mls/hr Documented by: [id number] Admin: 01/16/21 20:34 Dose: 240 mls/hr Documented by: [id number] Phytonadione 5 mg/ Sodium (Chloride) 50.5 mls @ 101 mls/hr IV ONE ONE Stop: 01/16/21 19:44 Last Infusion: 01/16/21 21:31 Dose: 0 mls/hr Documented by: [id number] Admin: 01/16/21 20:55 Dose: 101 mls/hr Documented by: [id number] Magnesium Sulfate/Dextrose (Magnesium Sulfate 1gm / D5w Bag) Confirm Administered Dose 1 gm IV .STK-MED ONE Stop: 01/15/21 03:32 Last Admin: 01/15/21 03:44 Dose: Not Given Documented by: [id number] Miscellaneous (* Calcium Infusion*Stop Order) 1 ea N/A 1230 ONE Stop: 01/16/21 12:31 Last Admin: 01/16/21 12:35 Dose: 1 ea Documented by: [id number] Ondansetron HCl (Ondansetron 4 Mg Od Tab) 4 mg PO Q6H PRN PRN Reason: Nausea Stop: 02/14/21 02:22 Last Admin: 01/15/21 02:32 Dose: 4 mg Documented by: [id number] Potassium Chloride (Potassium Chloride Crtab 20 Meq Tabcr) 40 meq PO TIDM TIMOTEO Stop: 02/14/21 07:59 Last Admin: 01/15/21 08:08 Dose: 40 meq Documented by: [id number] Potassium Chloride (Potassium Chloride 20 Meq/15 Ml Udc) 40 meq PO TID TIMOTEO Stop: 01/16/21 21:01 Last Admin: 01/15/21 13:13 Dose: 40 meq Documented by: [id number] Admin: 01/15/21 10:15 Dose: 40 meq Documented by: [id number] Potassium Chloride (Potassium Chloride 20 Meq/15 Ml Udc) 20 meq PO TID TIMOTEO Stop: 01/16/21 21:01 Last Admin: 01/16/21 21:00 Dose: 20 meq Documented by: [id number] Admin: 01/16/21 11:53 Dose: Not Given Documented by: [id number] Admin: 01/16/21 07:31 Dose: 20 meq Documented by: [id number] Admin: 01/15/21 21:04 Dose: 20 meq Documented by: [id number] Vitamin D (Cholecalciferol 1,000 Units 25 Mcg Tab) 1,000 units PO DAILY TIMOTEO Stop: 02/14/21 08:59 Last Admin: 01/15/21 08:07 Dose: 1,000 units Documented by: [id number] Discharge Plan Visit Data Chief Complaint: Arm Pain Stated Complaint: L ARM NUMBNESS, RIB PAIN, LOSS OF APPETITE ED Provider: Kayla Machado Discharge Problem: Hypocalcemia, Supratherapeutic INR Patient Disposition: Admitted As Inpatient Discharge Instructions Interventions: ED Discharge Assessment Last Done: 01/15/21 03:13
[2021-01-15 07:27] LABS: Howell-Jolly Bodies Occasional; Pappenheimer Bodies 1+
[2021-01-15] MEDS ORDERED: POTASSIUM CHLORIDE CRTAB 20 MEQ TABCR PO SCH (08:00)
[2021-01-15 08:04] LABS: INR 2.2 (0.9-1.1); Prothrombin Time 20.9 Seconds (9.0-12.0)
[2021-01-15] MEDS: LEVOTHYROXINE SODIUM 75 MCG TABLET PO SCH (08:05)
[2021-01-15] MEDS: FAMOTIDINE 20 MG TAB PO SCH ×2 (08:07→20:04)
[2021-01-15] MEDS: busPIRone 5 MG TAB PO SCH ×2 (08:07→20:05)
[2021-01-15] MEDS: MAGNESIUM OXIDE 400 MG TAB PO SCH ×2 (08:07→20:10)
[2021-01-15] MEDS: SPIRONOLACTONE 25 MG TAB PO SCH (08:07)
[2021-01-15] MEDS: THIAMINE HCL 100 MG TAB PO SCH ×2 (08:07→20:10)
[2021-01-15] MEDS: TAMSULOSIN HCL 0.4 MG CAP PO SCH ×2 (08:07→20:11)
[2021-01-15] MEDS: CALCIUM CARBONATE 1250MG TAB PO SCH ×2 (08:08→20:12)
[2021-01-15] MEDS: CALCITRIOL 0.25 MCG CAPSULE PO SCH ×2 (08:08→20:05)
[2021-01-15] MEDS: LACTASE 3000 UNIT TAB PO SCH ×3 (08:08→17:48)
[2021-01-15] MEDS: PANCREAZE (LIPASE 10,500U) CAP PO SCH ×3 (08:08→17:48)
[2021-01-15] MEDS: FLUTICASONE FUROATE 200MCG 14 PUFFS/INHALER INH SCH (08:09)
[2021-01-15] MEDS: POT PHOSPHATE MONOBASIC W/ SOD TAB PO SCH ×4 (08:09→21:04)
[2021-01-15 08:32] LABS: Alanine Aminotransferase 74 U/L (12-78); Albumin Globulin Ratio 0.3 (0.9-2); Albumin Level 1.5 gm/dl (3.4-5.0); Alkaline Phosphatase 321 U/L (45-117); Aspartate Aminotransferase 89 U/L (15-37); BUN Creatinine Ratio 19.4 (10-20); Bilirubin,Total 0.4 mg/dl (0.2-1); Blood Urea Nitrogen 9 mg/dl (7-18); Calcium < 5.0 mg/dl (8.5-10.1); Carbon Dioxide 22 mmol/L (21-32); Chloride 109 mmol/L (98-107); Creatinine Clr Calc Pharmacy 122.5 ml/min; Est GFR (African American) 139.3 ml/min; Est GFR (Non-African American) 120.2 ml/min; Globulin 4.4 gm/dl (2.5-4.0); Glucose 81 mg/dl (70-99); Magnesium 1.9 mg/dl (1.8-2.4); Phosphorus 1.9 mg/dl (2.5-4.9); Sodium 139 mmol/L (136-145); Total Protein 5.9 gm/dl (6.4-8.2)
[2021-01-15] MEDS ORDERED: CHOLECALCIFEROL 1,000 UNITS 25 MCG TAB PO SCH (09:00)
[2021-01-15] MEDS ORDERED: LOPERAMIDE 2 MG PO SCH (09:00)
[2021-01-15] MEDS ORDERED: CALCIUM GLUCONATE 10% 2,000 MG in SODIUM CHLORIDE 0.9% 50 ML IV ONE (09:30)
[2021-01-15] MEDS: POTASSIUM CHLORIDE 20 MEQ/15 ML UDC PO SCH ×3 (10:15→21:04)
[2021-01-15] MEDS: CHOLECALCIFEROL 1,000 UNITS 25 MCG TAB PO SCH (10:15)
--- NOTE | 2021-01-15 10:25 | Hospitalist Progress Note ---
Date of Service January 15, 2021 Assessment & Plan (1) Severe protein-calorie malnutrition: Plan: Severe protein calorie malnutrition with electrolyte abnormalities Patient with longstanding history, Suspect combination of nutritional deficiency with celiac malabsorption and poor oral intake. Patient poorly compliant with celiac diet at present per corrections officers. Celiac/gluten free diet Continue boost Remeron nightly PPI deferred for concern of worsening malabsorption, patient with some stomachache suspected due to hypocalcemia. Follow clinically - Sodium: 141 on admission. - Potassium:3.6, goal >4 with hx PAF. oral supplementation - Magnesium: 1.3 on admission, replete with IV mag sulfate - Calcium: <5 on admission. Corrected to 6.8 for hypoalbuminemia. Ionized Calcium 0.69. Received Calcium gluconate 1g x 2 doses in ER. Repeat calcium again low critical, corrects for hypoalbuminemia and remains low. Additional calcium gluconate given, continue oral repletion as below Phosphate low, continue repletion. - continue calcitriol, calcium carbonate supplements. - continue Vit D, folate, B12 supplementation with hx deficiencies - trend CMP, Mag, Phos daily - telemetry monitoring for arrhythmia potential with electrolyte derangements (2) Hypocalcemia: Plan: See above (3) Supratherapeutic INR: Plan: - INR 9, goal 2-3 for chronic DVT - Vit K 10 mg IV x 1 in ER - INR rapidly downtrended to 2.2 - likely secondary to reduced vitamin K intake in diet -Discussed with infirmary at [facility], patient without known underlying liver disease. Is not on warfarin at baseline, suspect vitamin K 2/2 severe nutritional depletion and noncompliance with celiac diet - daily PT/INR (4) Chronic deep vein thrombosis (DVT): Plan: - Warfarin as above (5) GERD (gastroesophageal reflux disease): Plan: - Defer H2 2/2 ?worsened malabsorption, no signs of bleeding, follow clinically at this time (6) PAF (paroxysmal atrial fibrillation): Plan: -Rate controlled without metoprolol, warfarin has been deferred in the past due to bleeding risk and severe dietary malnutrition/vitamin K depletion (7) Celiac disease: Plan: Discussed with [facility] infirmary. Patient very noncompliant with medications and diet. Has history of severe malnutrition with iron and nutrient deficiency, previously requiring IV iron infusions which have not been performed recently. (8) Prolonged QT interval: Plan: - EKG showing QTc 533 - zofran soltab x1 for nausea. consider diphenhydramine/Ativan for nausea if needed instead - risk of QT prolongation vs. extrapyramidal symptoms in underweight individual with baseline muscle stiffness and tetany (9) Hypothyroid: Plan: Continue Synthroid Repeat TSH pending (10) Lactose intolerance: Plan: - Lactose free - Lactaid PRN (11) Mood disorder: Plan: Mood Disorder? previously on sertraline, med rec now showing buspar 5 mg bid Plan: DVT ppx: holding while INR elevated FEN/GI: regular diet, boost supplements as above Bowel regimen: hx chronic diarrhea, NA Code Status: Full Code Dispo: Med/Tele Admission and Anticipated Discharge Date Admission Date: January 15, 2021 Subjective Rikki seen at the bedside. He reports he feels tired, has a stomachache, and has had diarrhea for the past 3 days. He denies confusion, hallucinations, and bone pain. He reports he is aware that he is celiac, is not generally consistent with celiac diet at the present. Denies bleeding today, is aware his INR was elevated on admission. Denies chest pain, chest pressure, shortness of breath, difficulty breathing, nausea, vomiting, constipation. Denies numbness and tingling. Review of Systems Review of Systems: All systems reviewed & are unremarkable except as noted in Subjective Physical Exam Physical Exam: General: Frail, cachectic appearing male. Chronically ill, does not appear acutely toxic. Alert and oriented x3. HEENT: Atraumatic, normocephalic. Pupils equal and reactive to light. Extraocular movements intact without nystagmus. Visual acuity and hearing grossly intact. Pulm: Diminished,wheezes, -rales, -rhonchi. Symmetrical chest rise. No increase work of breathing. No respiratory distress. Cardiac: RRR, -mrg. Radial pulses intact and symmetrical. Abdominal: Mild epigastric tenderness to palpation without rebound, abdomen otherwise nontender nondistended, soft. BS present. Extremities: Thin. [employer] strength, ankle dorsiflexion/plantar flexion grossly intact and symmetrical. Sensation to soft touch intact in hands and feet bilaterally without asymmetry. Results & Data Results & Data ([facility]) Vital Signs (Past 12 Hours) Vital Signs Temp Pulse Pulse Resp BP BP Pulse Ox 01/15/21 08:36 01/15/21 08:00 86 15 124/86 95 01/15/21 06:00 91 H 16 86/55 L 94 01/15/21 03:49 68 16 94/62 L 94 01/15/21 03:21 36.6 C 92 H 16 90/60 L 96 01/15/21 03:00 61 15 93/69 L 99 01/15/21 02:34 68 16 110/78 96 01/15/21 02:30 77 13 94/64 L 98 01/15/21 00:30 62 17 100/65 99 01/14/21 23:34 90 16 107/89 96 01/14/21 23:27 92 H 13 107/89 99 Pulse Ox 01/15/21 08:36 95 01/15/21 08:00 01/15/21 06:00 01/15/21 03:49 01/15/21 03:21 01/15/21 03:00 01/15/21 02:34 01/15/21 02:30 01/15/21 00:30 01/14/21 23:34 01/14/21 23:27 PG Care Time/CCT Total # of Minutes Spent Total Time Spent with Patient: Total time spent is greater than 50% in coordination of care (as documented) at patient's floor/unit and/or counseling patient: Coding Level of Care Code 39916 Subseq Hosp Care Lvl 3 Diagnoses Severe protein-calorie malnutrition E43 Hypocalcemia E83.51 Supratherapeutic INR R79.1 Chronic deep vein thrombosis (DVT) I82.509 GERD (gastroesophageal reflux disease) K21.9 PAF (paroxysmal atrial fibrillation) I48.0 Celiac disease K90.0 Prolonged QT interval R94.31 Hypothyroid E03.9 Lactose intolerance E73.9 Mood disorder F39
[2021-01-15 10:56] LABS: BUN Creatinine Ratio 19.2 (10-20); Blood Urea Nitrogen 9 mg/dl (7-18); Calcium < 5.0 mg/dl (8.5-10.1); Carbon Dioxide 23 mmol/L (21-32); Chloride 110 mmol/L (98-107); Est GFR (African American) 135.7 ml/min; Est GFR (Non-African American) 117.1 ml/min; Glucose 81 mg/dl (70-99); Potassium 2.6 mmol/L (3.5-5.1); Sodium 140 mmol/L (136-145)
[2021-01-15] MEDS ORDERED: POTASSIUM PHOSPHATE 15 MMOL in SODIUM CHLORIDE 0.9% 250 ML IV ONE (12:30)
[2021-01-15] MEDS: POTASSIUM CHLORIDE / WTR 10 MEQ/100 ML PLCT IV SCH ×3 (12:31→15:15)
[2021-01-15 14:09] LABS: BUN Creatinine Ratio 18.6 (10-20); Calcium 5.6 mg/dl (8.5-10.1); Creatinine Clr Calc Pharmacy 110.5 ml/min; Est GFR (African American) 133.5 ml/min; Est GFR (Non-African American) 115.2 ml/min; Potassium 3.6 mmol/L (3.5-5.1)
[2021-01-15] MEDS: CALCIUM GLUCONATE 10% 11,000 MG in DEXTROSE 5% 890 ML IV SCH (15:25)
[2021-01-15] MEDS ORDERED: POTASSIUM PHOS 3 MMOL/1 ML INFUSION IV ONE (17:00)
--- NOTE | 2021-01-15 18:23 | Electrocardiogram Report ---
Test Reason : Blood Pressure : / mmHG Vent. Rate : 075 BPM Atrial Rate : 076 BPM P-R Int : 000 ms QRS Dur : 068 ms QT Int : 478 ms P-R-T Axes : 000 062 086 degrees QTc Int : 533 ms Poor data quality, interpretation may be adversely affected Sinus rhythm Diffuse Nonspecific T wave abnormality Abnormal ECG When compared with ECG of 11-MAR-2020 13:46, Vent. rate has decreased BY 53 BPM Confirmed by Gigi Anand ([id number]) on 01/15/2021 6:23:11 PM Referred By: Mike SCI Confirmed By:Gigi Anand
[2021-01-15 18:25] LABS: BUN Creatinine Ratio 18.2 (10-20); Calcium 5.3 mg/dl (8.5-10.1); Creatinine Clr Calc Pharmacy 112.7 ml/min; Est GFR (African American) 134.6 ml/min; Est GFR (Non-African American) 116.1 ml/min; Potassium 3.7 mmol/L (3.5-5.1)
[2021-01-15] MEDS ORDERED: diphenhydrAMINE 50 MG/ML VIAL IV STA (19:57)
[2021-01-15] MEDS: MIRTAZAPINE SOLTAB 15 MG PO SCH (20:04)
[2021-01-15] MEDS: FOLIC ACID 1 MG TAB PO SCH (20:10)
[2021-01-15] MEDS: FERROUS SULFATE 325 MG TAB PO SCH (20:12)
[2021-01-15] MEDS ORDERED: SERTRALINE HCL 50 MG TABLET PO SCH (21:00)
--- NOTE | 2021-01-15 21:05 | Billing Data ---
Date of Service January 15, 2021 Coding Level of Care Code 07341 Initial Inpt Care Lvl 3
[2021-01-15 22:05] LABS: BUN Creatinine Ratio 13.5 (10-20); Blood Urea Nitrogen 7 mg/dl (7-18); Calcium 5.9 mg/dl (8.5-10.1); Carbon Dioxide 21 mmol/L (21-32); Chloride 110 mmol/L (98-107); Creatinine Clr Calc Pharmacy 102.4 ml/min; Est GFR (African American) 129.4 ml/min; Est GFR (Non-African American) 111.7 ml/min; Glucose 92 mg/dl (70-99); Sodium 139 mmol/L (136-145)
[2021-01-16 01:29] LABS: BUN Creatinine Ratio 12.2 (10-20); Calcium 6.2 mg/dl (8.5-10.1); Creatinine Clr Calc Pharmacy 84.9 ml/min; Est GFR (African American) 130.4 ml/min; Est GFR (Non-African American) 112.5 ml/min; Potassium 3.5 mmol/L (3.5-5.1)
[2021-01-16] MEDS: ACETAMINOPHEN 325 MG TAB PO PRN (02:34)
[2021-01-16] MEDS ORDERED: diphenhydrAMINE 50 MG/ML VIAL IV STA ×2 (02:49→20:02)
[2021-01-16] MEDS: LACTASE 3000 UNIT TAB PO SCH ×3 (06:21→17:18)
[2021-01-16] MEDS: LEVOTHYROXINE SODIUM 75 MCG TABLET PO SCH (06:21)
[2021-01-16] MEDS: CALCITRIOL 0.25 MCG CAPSULE PO SCH ×2 (07:22→20:57)
[2021-01-16] MEDS: FAMOTIDINE 20 MG TAB PO SCH ×2 (07:22→20:58)
[2021-01-16] MEDS: MAGNESIUM OXIDE 400 MG TAB PO SCH ×2 (07:23→20:59)
[2021-01-16] MEDS: TAMSULOSIN HCL 0.4 MG CAP PO SCH ×2 (07:23→21:00)
[2021-01-16] MEDS: CALCIUM CARBONATE 1250MG TAB PO SCH ×2 (07:23→20:57)
[2021-01-16] MEDS: THIAMINE HCL 100 MG TAB PO SCH ×2 (07:24→21:01)
[2021-01-16] MEDS: CHOLECALCIFEROL 1,000 UNITS 25 MCG TAB PO SCH (07:24)
[2021-01-16] MEDS: POT PHOSPHATE MONOBASIC W/ SOD TAB PO SCH ×4 (07:29→21:00)
[2021-01-16] MEDS: busPIRone 5 MG TAB PO SCH ×2 (07:29→20:56)
[2021-01-16] MEDS: PANCREAZE (LIPASE 10,500U) CAP PO SCH ×3 (07:30→17:18)
[2021-01-16] MEDS: FLUTICASONE FUROATE 200MCG 14 PUFFS/INHALER INH SCH (07:30)
[2021-01-16] MEDS: SPIRONOLACTONE 25 MG TAB PO SCH (07:31)
[2021-01-16] MEDS: POTASSIUM CHLORIDE 20 MEQ/15 ML UDC PO SCH ×3 (07:31→21:00)
[2021-01-16 09:13] LABS: INR 1.4 (0.9-1.1); Prothrombin Time 13.8 Seconds (9.0-12.0)
[2021-01-16 09:22] LABS: Albumin Globulin Ratio 0.4 (0.9-2); Albumin Level 1.7 gm/dl (3.4-5.0); BUN Creatinine Ratio 13.3 (10-20); Bilirubin,Total 0.5 mg/dl (0.2-1); Calcium 6.6 mg/dl (8.5-10.1); Creatinine Clr Calc Pharmacy 95.5 ml/min; Est GFR (African American) 136.9 ml/min; Est GFR (Non-African American) 118.1 ml/min; Globulin 4.8 gm/dl (2.5-4.0); Magnesium 1.6 mg/dl (1.8-2.4); Phosphorus 2.6 mg/dl (2.5-4.9); Potassium 3.7 mmol/L (3.5-5.1); Total Protein 6.5 gm/dl (6.4-8.2)
[2021-01-16] MEDS: MAGNESIUM SULFATE / D5W 1 GM/100 ML BAG IV SCH ×2 (11:49→13:34)
[2021-01-16] MEDS ORDERED: [UNRECOGNIZED DRUG - REMARK] ONE (12:30)
[2021-01-16] MEDS: CALCIUM GLUCONATE 10% 11,000 MG in DEXTROSE 5% 890 ML IV SCH (12:34)
[2021-01-16 13:28] LABS: Phosphorus 2.8 mg/dl (2.5-4.9)
[2021-01-16 17:57] LABS: Calcium 6.3 mg/dl (8.5-10.1)
[2021-01-16 18:01] LABS: Phosphorus 2.9 mg/dl (2.5-4.9)
--- NOTE | 2021-01-16 18:30 | Hospitalist Progress Note ---
Date of Service January 16, 2021 Assessment & Plan (1) Hypocalcemia: Plan: Presented with hypocalcemia that is severe with tetany, secondary to celiac disease that is severe and noncompliance with gluten free diet with malabsorption Calcium less than 5 on admission which was corrected to 6.8 for hypoalbuminemia, ionized calcium 0.69 Tetany is improving Most recent vitamin D 25-OH checked in 02/2020 was severely low at 11 Replaced with approximately 11 g of calcium gluconate since admission and calcium is finally slightly into the normal range Give 1 more gram of IV calcium gluconate this evening and follow levels in the morning Check vitamin D 25-OH in the morning -Continue calcitriol 2 mcg p.o. twice daily, calcium carbonate 1250 mg p.o. twice daily -Follow calcium levels in the morning (2) Severe protein-calorie malnutrition: Plan: Severe protein calorie malnutrition with electrolyte abnormalities BMI is 13.8 and he has lost 6 kg in the last 3 years Appreciate nutrition consult Patient with longstanding history, Suspect combination of nutritional deficiency with celiac malabsorption and poor oral intake. Patient poorly compliant with celiac diet at present per corrections officers. Celiac/gluten and lactose free diet Continue boost Remeron nightly PPI deferred for concern of worsening malabsorption, patient with some stomachache suspected due to hypocalcemia. Follow clinically - Magnesium: 1.3 on admission, replete with IV mag sulfate again today - Calcium: <5 on admission. Corrected to 6.8 for hypoalbuminemia. Ionized Calcium 0.69. Received Calcium gluconate 1g x 2 doses in ER. Phosphate low, now improved with replacement-continue potassium phosphate 2 tabs p.o. 4 times daily -Potassium replaced and is improved - continue calcitriol, cholecalciferol, calcium carbonate supplements. - continue folate, B12 supplementation with hx deficiencies - trend CMP, Mag, Phos daily - telemetry monitoring for arrhythmia potential with electrolyte derangements -Add on multivitamin with minerals (3) Celiac disease: Plan: Discussed with [facility]. Patient very noncompliant with medications and diet. Has history of severe malnutrition with iron and nutrient deficiency as above -Continue gluten-free diet here With a history of lymphocytic colitis related to celiac disease-previously on steroids but not right now (4) Supratherapeutic INR: Plan: - INR 9 on arrival secondary to severe vitamin K deficiency - Vit K 10 mg IV x 1 in ER - INR downtrended to 1.2 - likely secondary to reduced vitamin K intake in diet -[facility], patient without known underlying liver disease. Is not on warfarin at baseline, suspect vitamin K 2/2 severe nutritional depletion and noncompliance with celiac diet - daily PT/INR -Give another dose of vitamin K 5 mg IV (5) GERD (gastroesophageal reflux disease): Plan: -Continue famotidine 20 mg p.o. twice daily (6) Prolonged QT interval: Plan: - EKG showing QTc 533 -Continue to monitor on telemetry Avoid QT prolonging medications Replacing electrolytes (7) Hypothyroid: Plan: Continue Synthroid Follow TSH in the morning (8) Lactose intolerance: Plan: - Lactose free - Lactaid PRN (9) Mood disorder: Plan: - previously on sertraline, med rec now showing buspar 5 mg bid (10) PAF (paroxysmal atrial fibrillation): Plan: Patient had approximately 30 minutes of atrial fibrillation during hospitalization several years ago No need for anticoagulation or rate control Monitoring on telemetry-sinus rhythm thus far (11) Chronic deep vein thrombosis (DVT): Plan: -With a history of DVT, no longer on anticoagulation (12) Transaminitis: Plan: AST, ALT, alkaline phosphatase all mildly elevated but stable from previous CT abdomen/pelvis from 08/2019 with normal-appearing liver Bilirubin normal Check hepatitis panel, right upper quadrant ultrasound (13) Elevated alkaline phosphatase level: Plan: As above (14) Anemia: Plan: Continue ferrous sulfate Hemoglobin not terribly low (15) Hypokalemia: Plan: Continue supplementation and spironolactone (16) BPH (benign prostatic hyperplasia): Plan: Continue Flomax Plan: DVT ppx: holding while INR elevated Code Status: Full Code, but considering extremely frail state, need to broach this topic with the patient as he would be a poor candidate for resuscitation Dispo: Continued stay med/Tele, back to group home once calcium levels normalized Admission and Anticipated Discharge Date Admission Date: January 15, 2021 Subjective Patient reports some pain in the arms and legs but improved from previous, sudden pain in the abdomen at times. He is eating some meats. He is drinking some of the boost as well. He is not having any bleeding from anywhere. Telemetry with normal sinus rhythm with rates in the 70s to 80s. Review of Systems Review of Systems: All systems reviewed & are unremarkable except as noted in HPI & below Physical Exam Constitutional: + ill appearing, + cachectic, + malnourished and + underweight Eyes: + anicteric sclerae Neck: trachea midline, no thyromegaly Respiratory: normal respiratory effort, lungs clear to auscultation Cardiovascular: RRR, no murmur, no edema Gastrointestinal (Abdomen): normal bowel sounds, soft, nontender, no hepatosplenomegaly (Mild distention of the abdomen) Musculoskeletal: Extremities: + extremities abnormal to inspection (Diffuse sarcopenia), no cyanosis and no clubbing Skin: no rashes, warm and dry Neurologic: moves all extremities and awake; no focal motor deficits Psychiatric: A+Ox3, euthymic affect Lymphatic: no lymphedema Results & Data Results & Data ([facility]) Vital Signs (Past 12 Hours) Vital Signs Temp Pulse Pulse Resp BP Pulse Ox 01/16/21 16:00 86 01/16/21 15:01 36.8 C 80 20 97/68 L 97 01/16/21 11:04 36.4 C L 81 18 100/65 97 Laboratory Results 01/16/21 01/16/21 01/16/21 Range/Units Unknown 17:32 16:42 PT (9.0-12.0) Seconds INR (0.9-1.1) Sodium (136-145) mmol/L Potassium Chloride (98-107) mmol/L Carbon Dioxide (21-32) mmol/L Anion Gap (3-11) BUN (7-18) mg/dl Creatinine (0.6-1.4) mg/dl Est Cr Clr Drug Dosing ml/min Est GFR ( Amer) ml/min Est GFR (Non-Af Amer) ml/min BUN/Creatinine Ratio (10-20) Glucose (70-99) mg/dl POC Glucose 124 H (70-99) mg/dl Calcium 6.3 L (8.5-10.1) mg/dl Ionized Calcium (1.12-1.32) mmol/L Phosphorus 2.9 (2.5-4.9) mg/dl Magnesium (1.8-2.4) mg/dl Total Bilirubin (0.2-1) mg/dl AST (15-37) U/L ALT (12-78) U/L Alkaline Phosphatase (45-117) U/L Total Protein (6.4-8.2) gm/dl Albumin (3.4-5.0) gm/dl Globulin (2.5-4.0) gm/dl Albumin/Globulin Ratio (0.9-2) Specimen Hemolysis Nasal Screen MRSA (PCR) Positive A (Negative) 01/16/21 01/16/21 01/16/21 Range/Units 12:42 11:31 08:34 PT (9.0-12.0) Seconds INR (0.9-1.1) Sodium 139 (136-145) mmol/L Potassium 3.7 Chloride 108 H (98-107) mmol/L Carbon Dioxide 24 (21-32) mmol/L Anion Gap 7.0 (3-11) BUN 6 L (7-18) mg/dl Creatinine 0.48 L (0.6-1.4) mg/dl Est Cr Clr Drug Dosing 95.5 ml/min Est GFR ( Amer) 136.9 ml/min Est GFR (Non-Af Amer) 118.1 ml/min BUN/Creatinine Ratio 13.3 (10-20) Glucose 88 (70-99) mg/dl POC Glucose 117 H (70-99) mg/dl Calcium 7.0 L 6.6 L (8.5-10.1) mg/dl Ionized Calcium (1.12-1.32) mmol/L Phosphorus 2.8 2.6 (2.5-4.9) mg/dl Magnesium 1.6 L (1.8-2.4) mg/dl Total Bilirubin 0.5 (0.2-1) mg/dl AST 74 H (15-37) U/L ALT 80 H (12-78) U/L Alkaline Phosphatase 366 H (45-117) U/L Total Protein 6.5 (6.4-8.2) gm/dl Albumin 1.7 L (3.4-5.0) gm/dl Globulin 4.8 H (2.5-4.0) gm/dl Albumin/Globulin Ratio 0.4 L (0.9-2) Specimen Hemolysis Nasal Screen MRSA (PCR) (Negative) 01/16/21 01/16/21 01/16/21 Range/Units 08:34 07:39 00:59 PT 13.8 H (9.0-12.0) Seconds INR 1.4 H (0.9-1.1) Sodium 137 (136-145) mmol/L Potassium 3.5 Chloride 110 H (98-107) mmol/L Carbon Dioxide 23 (21-32) mmol/L Anion Gap 4.0 (3-11) BUN 7 (7-18) mg/dl Creatinine 0.54 L (0.6-1.4) mg/dl Est Cr Clr Drug Dosing 84.9 ml/min Est GFR ( Amer) 130.4 ml/min Est GFR (Non-Af Amer) 112.5 ml/min BUN/Creatinine Ratio 12.2 (10-20) Glucose 86 (70-99) mg/dl POC Glucose 98 (70-99) mg/dl Calcium 6.2 L (8.5-10.1) mg/dl Ionized Calcium (1.12-1.32) mmol/L Phosphorus (2.5-4.9) mg/dl Magnesium (1.8-2.4) mg/dl Total Bilirubin (0.2-1) mg/dl AST (15-37) U/L ALT (12-78) U/L Alkaline Phosphatase (45-117) U/L Total Protein (6.4-8.2) gm/dl Albumin (3.4-5.0) gm/dl Globulin (2.5-4.0) gm/dl Albumin/Globulin Ratio (0.9-2) Specimen Hemolysis Nasal Screen MRSA (PCR) (Negative) 01/16/21 01/15/21 Range/Units 00:59 21:26 PT (9.0-12.0) Seconds INR (0.9-1.1) Sodium 139 (136-145) mmol/L Potassium TNP Chloride 110 H (98-107) mmol/L Carbon Dioxide 21 (21-32) mmol/L Anion Gap 8.0 (3-11) BUN 7 (7-18) mg/dl Creatinine 0.55 L (0.6-1.4) mg/dl Est Cr Clr Drug Dosing 102.4 ml/min Est GFR ( Amer) 129.4 ml/min Est GFR (Non-Af Amer) 111.7 ml/min BUN/Creatinine Ratio 13.5 (10-20) Glucose 92 (70-99) mg/dl POC Glucose (70-99) mg/dl Calcium 5.9 L* (8.5-10.1) mg/dl Ionized Calcium 0.91 L (1.12-1.32) mmol/L Phosphorus (2.5-4.9) mg/dl Magnesium (1.8-2.4) mg/dl Total Bilirubin (0.2-1) mg/dl AST (15-37) U/L ALT (12-78) U/L Alkaline Phosphatase (45-117) U/L Total Protein (6.4-8.2) gm/dl Albumin (3.4-5.0) gm/dl Globulin (2.5-4.0) gm/dl Albumin/Globulin Ratio (0.9-2) Specimen Hemolysis Nasal Screen MRSA (PCR) (Negative) PG Care Time/CCT Total # of Minutes Spent Total Time Spent with Patient: Total time spent is greater than 50% in coordination of care (as documented) at patient's floor/unit and/or counseling patient: Coding Level of Care Code 62107 Subseq Hosp Care Lvl 3 Diagnoses Severe protein-calorie malnutrition E43 Hypocalcemia E83.51 Supratherapeutic INR R79.1 Chronic deep vein thrombosis (DVT) I82.509 GERD (gastroesophageal reflux disease) K21.9 PAF (paroxysmal atrial fibrillation) I48.0 Celiac disease K90.0 Prolonged QT interval R94.31 Hypothyroid E03.9 Lactose intolerance E73.9 Mood disorder F39 Transaminitis R74.01 Elevated alkaline phosphatase level R74.8 Anemia D64.9 Anemia type: unspecified type Hypokalemia E87.6 BPH (benign prostatic hyperplasia) N40.0 (1) Anemia Anemia type: unspecified type Qualified Code(s): D64.9 - Anemia, unspecified
[2021-01-16] MEDS ORDERED: CALCIUM GLUCONATE 10% 1,000 MG in SODIUM CHLORIDE 0.9% 50 ML IV STA (18:43)
[2021-01-16] MEDS ORDERED: PHYTONADIONE 5 MG in SODIUM CHLORIDE 0.9% 50 ML IV ONE (19:15)
[2021-01-16] MEDS: FERROUS SULFATE 325 MG TAB PO SCH (20:58)
[2021-01-16] MEDS: FOLIC ACID 1 MG TAB PO SCH (20:59)
[2021-01-16] MEDS: MIRTAZAPINE SOLTAB 15 MG PO SCH (20:59)
[2021-01-17] MEDS: LEVOTHYROXINE SODIUM 75 MCG TABLET PO SCH (05:36)
[2021-01-17] MEDS: LACTASE 3000 UNIT TAB PO SCH ×3 (06:16→17:31)
[2021-01-17 08:34] LABS: INR 1.3 (0.9-1.1); Prothrombin Time 12.8 Seconds (9.0-12.0)
[2021-01-17 09:21] LABS: Albumin Globulin Ratio 0.4 (0.9-2); Albumin Level 1.4 gm/dl (3.4-5.0); BUN Creatinine Ratio 15.1 (10-20); Bilirubin,Total 0.5 mg/dl (0.2-1); Creatinine Clr Calc Pharmacy 109.1 ml/min; Est GFR (African American) 144.6 ml/min; Est GFR (Non-African American) 124.8 ml/min; Magnesium 1.6 mg/dl (1.8-2.4); Phosphorus 2.7 mg/dl (2.5-4.9); Potassium 3.3 mmol/L (3.5-5.1); Thyroid Stimulating Hormone 5.73 uIu/ml (0.300-4.500); Total Protein 5.4 gm/dl (6.4-8.2)
[2021-01-17] MEDS ORDERED: POTASSIUM CHLORIDE CRTAB 20 MEQ TABCR PO STA (10:03)
--- NOTE | 2021-01-17 10:03 | Ultrasound Report ---
US liver HISTORY: 60 years-old Male elevated LFTs acute right upper quadrant abdominal pain with elevated LFT s COMPARISON: CT abdomen pelvis 09/22/2019 TECHNIQUE: Multiple real-time sonographic images of the abdominal right upper quadrant were obtained assessing grayscale appearance and color flow FINDINGS: Streak bowel gas limits the study. The pancreas left hepatic lobe is not well visualized. Unremarkabl e gallbladder without wall thickening, shadowing cholelithiasis or pericholecystic fluid. Normal comm on bile duct measures 3 mm. IMPRESSION: Limited exam secondary to obscuring bowel gas. No cholelithiasis or sonographic evidence of acute cholecystitis. ACT 112: Negative or not required by law. The above report was generated using voice recognition software. It may contain grammatical, syntax o r spelling errors. Electronically signed by: Vikram Garcia M.D. 01/17/2021 10:02 AM
[2021-01-17] MEDS: PANCREAZE (LIPASE 10,500U) CAP PO SCH ×3 (10:06→17:31)
[2021-01-17] MEDS: CALCITRIOL 0.25 MCG CAPSULE PO SCH ×2 (10:07→20:27)
[2021-01-17] MEDS: CALCIUM CARBONATE 1250MG TAB PO SCH ×2 (10:07→20:21)
[2021-01-17] MEDS: busPIRone 5 MG TAB PO SCH ×2 (10:07→20:27)
[2021-01-17] MEDS: FLUTICASONE FUROATE 200MCG 14 PUFFS/INHALER INH SCH (10:08)
[2021-01-17] MEDS: CHOLECALCIFEROL 1,000 UNITS 25 MCG TAB PO SCH (10:08)
[2021-01-17] MEDS: FAMOTIDINE 20 MG TAB PO SCH ×2 (10:08→20:30)
[2021-01-17] MEDS: CEROVITE ADV FORMULA TAB PO SCH (10:09)
[2021-01-17] MEDS: MAGNESIUM OXIDE 400 MG TAB PO SCH ×2 (10:09→20:28)
[2021-01-17] MEDS: POT PHOSPHATE MONOBASIC W/ SOD TAB PO SCH ×4 (10:10→20:18)
[2021-01-17] MEDS: SPIRONOLACTONE 25 MG TAB PO SCH (10:10)
[2021-01-17] MEDS: TAMSULOSIN HCL 0.4 MG CAP PO SCH ×2 (10:11→20:29)
[2021-01-17] MEDS: THIAMINE HCL 100 MG TAB PO SCH ×2 (10:11→20:29)
[2021-01-17] MEDS ORDERED: CALCIUM GLUCONATE 10% 1,000 MG in SODIUM CHLORIDE 0.9% 50 ML IV ONE ×2 (10:45→18:00)
[2021-01-17] MEDS: MAGNESIUM SULFATE / D5W 1 GM/100 ML BAG IV SCH ×2 (11:18→13:21)
--- NOTE | 2021-01-17 17:26 | Hospitalist Progress Note ---
Date of Service January 17, 2021 Assessment & Plan (1) Hypocalcemia: Plan: Presented with hypocalcemia that is severe with tetany, secondary to celiac disease that is severe and noncompliance with gluten free diet with malabsorption Calcium less than 5 on admission which was corrected to 6.8 for hypoalbuminemia, ionized calcium 0.69 Tetany is improving but remains with some muscle aches Most recent vitamin D 25-OH checked in 02/2020 was severely low at 11, repeat here is pending Replaced with approximately 11 g of calcium gluconate in first 48 hours and calcium is still jsut below normal after correction for hypoalbuminemia -Give 1 gram of IV calcium gluconate bid today vitamin D 25-OH pending -Continue calcitriol 2 mcg p.o. twice daily, calcium carbonate 1250 mg p.o. twice daily -Follow calcium levels in the morning (2) Severe protein-calorie malnutrition: Plan: Severe protein calorie malnutrition with electrolyte abnormalities BMI is 13.8 and he has lost 6 kg in the last 3 years Appreciate nutrition consult Patient with longstanding history, Suspect combination of nutritional deficiency with celiac malabsorption and poor oral intake. Patient poorly compliant with celiac diet at present per corrections [employer]. Celiac/gluten and lactose free diet Continue boost Remeron nightly PPI deferred for concern of worsening malabsorption, patient with some stomac nader suspected due to hypocalcemia. Follow clinically - Magnesium: 1.3 on admission,now improving but remains low--> replete with IV mag sulfate again today - Calcium: <5 on admission. replacing as above Phosphate low, now improved with replacement-continue potassium phosphate 2 tabs p.o. 4 times daily -Potassium replaced and is improved - continue calcitriol, cholecalciferol, calcium carbonate supplements. - continue folate, B12 supplementation with hx deficiencies - trend CMP, Mag, Phos daily - telemetry monitoring for arrhythmia potential with electrolyte derangements -Added on multivitamin with minerals (3) Celiac disease: Plan: Discussed with [facility]. Patient very noncompliant with medications and diet. Has history of severe malnutrition with iron and nutrient deficiency as above -Continue gluten-free diet here With a history of lymphocytic colitis related to celiac disease-previously on steroids but not right now (4) Supratherapeutic INR: Plan: - INR 9 on arrival secondary to severe vitamin K deficiency - Vit K 10 mg IV x 1 in ER - INR downtrended to 1.2, now up again to 1.3 - likely secondary to reduced vitamin K intake in diet, no body fat to store Vit K -Discussed with infirmary at [facility], patient without known underlying liver disease. Is not on warfarin at baseline, suspect vitamin K 2/2 severe nutritional depletion and noncompliance with celiac diet - daily PT/INR -Gave another dose of vitamin K 5 mg IV on 01/16 (5) GERD (gastroesophageal reflux disease): Plan: -Continue famotidine 20 mg p.o. twice daily (6) Prolonged QT interval: Plan: - EKG showing QTc 533 -Continue to monitor on telemetry Avoid QT prolonging medications Replacing electrolytes (7) Hypothyroid: Plan: Continue Synthroid Follow TSH in the morning (8) Lactose intolerance: Plan: - Lactose free - Lactaid PRN (9) Mood disorder: Plan: -continue buspar 5 mg bid and Remeron Question if has OCD or an eating disorder f/u with Psych at [facility] living (10) PAF (paroxysmal atrial fibrillation): Plan: Patient had approximately 30 minutes of atrial fibrillation during hospitalization several years ago No need for anticoagulation or rate control Monitoring on telemetry-sinus rhythm thus far (11) Chronic deep vein thrombosis (DVT): Plan: -With a history of DVT, no longer on anticoagulation (12) Transaminitis: Plan: AST, ALT, alkaline phosphatase all elevated but improved from previous CT abdomen/pelvis from 08/2019 with normal-appearing liver Bilirubin normal Liver US normal here -hepatitis panel pending -follow LFTs (13) Elevated alkaline phosphatase level: Plan: As above (14) Anemia: Plan: Continue ferrous sulfate Hemoglobin not terribly low (15) Hypokalemia: Plan: Continue supplementation and spironolactone follow BMP (16) BPH (benign prostatic hyperplasia): Plan: Continue Flomax Plan: DVT ppx: add Lovenox SQ Code Status: Full Code, but considering extremely frail state, need to broach this topic with the patient as he would be a poor candidate for resuscitation- defer to senior living physician Dispo: Continued stay med/Tele, back to senior living once calcium levels normalized Admission and Anticipated Discharge Date Admission Date: January 15, 2021 Subjective Pt hungry as he never got his diet after his liver US this AM. Had loose stools 3 times, no abd pain. Still has muscle pains all over his body but does not seem to be in distress. Tele with NSR rates 70-100s Review of Systems Review of Systems: All systems reviewed & are unremarkable except as noted in HPI & below Physical Exam Constitutional: + ill appearing, + cachectic, + malnourished and + underweight Eyes: + anicteric sclerae Neck: trachea midline, no thyromegaly Respiratory: normal respiratory effort, lungs clear to auscultation Cardiovascular: RRR, no murmur, no edema Chest (Breasts): Chest: + abnormal inspection of chest Gastrointestinal (Abdomen): normal bowel sounds, soft, nontender, no hepatosplenomegaly (Mild distention of the abdomen) Musculoskeletal: Extremities: + extremities abnormal to inspection (Diffuse sarcopenia), no cyanosis and no clubbing Skin: no rashes, warm and dry Neurologic: moves all extremities and awake; no focal motor deficits Psychiatric: A+Ox3, euthymic affect Lymphatic: no lymphedema Results & Data Results & Data ([facility]) Vital Signs (Past 12 Hours) Vital Signs Temp Pulse Pulse Resp BP Pulse Ox 01/17/21 11:17 36.3 C L 80 18 92/62 L 97 01/17/21 07:16 80 01/17/21 06:27 36.5 C 80 16 114/80 96 Laboratory Results 01/17/21 01/17/21 01/17/21 Range/Units 07:58 07:58 07:58 PT (9.0-12.0) Seconds INR (0.9-1.1) Sodium 139 (136-145) mmol/L Potassium 3.3 L (3.5-5.1) mmol/L Chloride 108 H (98-107) mmol/L Carbon Dioxide 23 (21-32) mmol/L Anion Gap 8.0 (3-11) BUN 6 L (7-18) mg/dl Creatinine 0.42 L (0.6-1.4) mg/dl Est Cr Clr Drug Dosing 109.1 ml/min Est GFR ( Amer) 144.6 ml/min Est GFR (Non-Af Amer) 124.8 ml/min BUN/Creatinine Ratio 15.1 (10-20) Glucose 74 (70-99) mg/dl Calcium 6.0 L (8.5-10.1) mg/dl Phosphorus 2.7 (2.5-4.9) mg/dl Magnesium 1.6 L (1.8-2.4) mg/dl Total Bilirubin 0.5 (0.2-1) mg/dl AST 45 H (15-37) U/L ALT 57 (12-78) U/L Alkaline Phosphatase 288 H (45-117) U/L Total Protein 5.4 L (6.4-8.2) gm/dl Albumin 1.4 L (3.4-5.0) gm/dl Globulin 4.0 (2.5-4.0) gm/dl Albumin/Globulin Ratio 0.4 L (0.9-2) 25-OH Vitamin D Total Pending TSH 5.730 H (0.300-4.500) uIu/ml Hepatitis A IgM Ab Pending Hep Bs Antigen Pending Hep B Core IgM Ab Pending Hepatitis C Antibody Pending 01/17/21 01/16/21 Range/Units 07:58 17:32 PT 12.8 H (9.0-12.0) Seconds INR 1.3 H (0.9-1.1) Sodium (136-145) mmol/L Potassium (3.5-5.1) mmol/L Chloride (98-107) mmol/L Carbon Dioxide (21-32) mmol/L Anion Gap (3-11) BUN (7-18) mg/dl Creatinine (0.6-1.4) mg/dl Est Cr Clr Drug Dosing ml/min Est GFR ( Amer) ml/min Est GFR (Non-Af Amer) ml/min BUN/Creatinine Ratio (10-20) Glucose (70-99) mg/dl Calcium 6.3 L (8.5-10.1) mg/dl Phosphorus 2.9 (2.5-4.9) mg/dl Magnesium (1.8-2.4) mg/dl Total Bilirubin (0.2-1) mg/dl AST (15-37) U/L ALT (12-78) U/L Alkaline Phosphatase (45-117) U/L Total Protein (6.4-8.2) gm/dl Albumin (3.4-5.0) gm/dl Globulin (2.5-4.0) gm/dl Albumin/Globulin Ratio (0.9-2) 25-OH Vitamin D Total TSH (0.300-4.500) uIu/ml Hepatitis A IgM Ab Hep Bs Antigen Hep B Core IgM Ab Hepatitis C Antibody PG Care Time/CCT Total # of Minutes Spent Total Time Spent with Patient: Total time spent is greater than 50% in coordination of care (as documented) at patient's floor/unit and/or counseling patient: Coding Level of Care Code 68245 Subseq Hosp Care Lvl 3 Diagnoses Hypocalcemia E83.51 Severe protein-calorie malnutrition E43 Celiac disease K90.0 Supratherapeutic INR R79.1 GERD (gastroesophageal reflux disease) K21.9 Prolonged QT interval R94.31 Hypothyroid E03.9 Lactose intolerance E73.9 Mood disorder F39 PAF (paroxysmal atrial fibrillation) I48.0 Chronic deep vein thrombosis (DVT) I82.509 Transaminitis R74.01 Elevated alkaline phosphatase level R74.8 Anemia D64.9 Anemia type: unspecified type Hypokalemia E87.6 BPH (benign prostatic hyperplasia) N40.0 (1) Anemia Anemia type: unspecified type Qualified Code(s): D64.9 - Anemia, unspecified
[2021-01-17] MEDS: FERROUS SULFATE 325 MG TAB PO SCH (20:29)
[2021-01-17] MEDS: FOLIC ACID 1 MG TAB PO SCH (20:29)
[2021-01-17] MEDS: MIRTAZAPINE SOLTAB 15 MG PO SCH (20:30)
[2021-01-17] MEDS: ENOXAPARIN INJ 30 MG/0.3 ML SYR SQ SCH (21:43)
[2021-01-17] MEDS ORDERED: ONDANSETRON INJ 2 MG/ML 2 ML VIAL IV ONE (23:18)
[2021-01-18] MEDS ORDERED: CALCIUM CARBONATE 500 MG CHEWABLE TAB PO ONE (01:11)
[2021-01-18] MEDS: LEVOTHYROXINE SODIUM 75 MCG TABLET PO SCH (05:52)
[2021-01-18] MEDS: POT PHOSPHATE MONOBASIC W/ SOD TAB PO SCH ×5 (08:31→20:26)
[2021-01-18] MEDS: PANCREAZE (LIPASE 10,500U) CAP PO SCH ×4 (08:31→16:30)
[2021-01-18] MEDS: LACTASE 3000 UNIT TAB PO SCH ×4 (08:32→16:30)
[2021-01-18] MEDS: CHOLECALCIFEROL 1,000 UNITS 25 MCG TAB PO SCH (08:32)
[2021-01-18] MEDS: CALCITRIOL 0.25 MCG CAPSULE PO SCH ×2 (08:32→20:20)
[2021-01-18] MEDS: CEROVITE ADV FORMULA TAB PO SCH (08:33)
[2021-01-18] MEDS: SPIRONOLACTONE 25 MG TAB PO SCH (08:33)
[2021-01-18] MEDS: FAMOTIDINE 20 MG TAB PO SCH ×2 (08:33→20:23)
[2021-01-18] MEDS: CALCIUM CARBONATE 1250MG TAB PO SCH ×2 (08:33→20:22)
[2021-01-18] MEDS: busPIRone 5 MG TAB PO SCH ×2 (08:34→20:19)
[2021-01-18] MEDS: TAMSULOSIN HCL 0.4 MG CAP PO SCH ×2 (08:34→20:28)
[2021-01-18] MEDS: MAGNESIUM OXIDE 400 MG TAB PO SCH ×2 (08:34→20:24)
[2021-01-18] MEDS: FLUTICASONE FUROATE 200MCG 14 PUFFS/INHALER INH SCH (08:35)
[2021-01-18] MEDS: THIAMINE HCL 100 MG TAB PO SCH ×2 (08:35→20:28)
[2021-01-18 09:02] LABS: Hepatitis B Surf Ag Rflx Conf Neg (Neg)
[2021-01-18 09:30] LABS: Hepatitis C IgG 13Yrs+Old_Rflx Neg (Neg)
[2021-01-18 09:58] LABS: Albumin Level 1.7 gm/dl (3.4-5.0); BUN Creatinine Ratio 13.5 (10-20); Calcium 6.5 mg/dl (8.5-10.1); Creatinine Clr Calc Pharmacy 104.1 ml/min; Est GFR (African American) 141.9 ml/min; Est GFR (Non-African American) 122.4 ml/min; Magnesium 1.8 mg/dl (1.8-2.4); Potassium 3.6 mmol/L (3.5-5.1)
[2021-01-18 10:01] LABS: Albumin Globulin Ratio 0.4 (0.9-2); Bilirubin,Total 0.4 mg/dl (0.2-1); Globulin 4.7 gm/dl (2.5-4.0); Phosphorus 3.1 mg/dl (2.5-4.9); Total Protein 6.4 gm/dl (6.4-8.2)
[2021-01-18] MEDS: ENOXAPARIN INJ 30 MG/0.3 ML SYR SQ SCH (20:22)
[2021-01-18] MEDS: FOLIC ACID 1 MG TAB PO SCH (20:24)
[2021-01-18] MEDS: FERROUS SULFATE 325 MG TAB PO SCH (20:24)
[2021-01-18] MEDS: MIRTAZAPINE SOLTAB 15 MG PO SCH (20:25)
[2021-01-19 02:27] LABS: Hepatitis A Antibody IgM NON-REACTIVE (NON-REACTIVE); Hepatitis B Core Antibody IgM NON-REACTIVE (NON-REACTIVE)
[2021-01-19] MEDS ORDERED: LACTATED RINGER'S 1,000 ML IV SCH (03:45)
[2021-01-19] MEDS: LEVOTHYROXINE SODIUM 75 MCG TABLET PO SCH (05:38)
--- NOTE | 2021-01-19 07:50 | Hospitalist Progress Note ---
Date of Service January 19, 2021 Assessment & Plan (1) Hypocalcemia: Plan: Rikki is a 60-year-old male with a past medical history of celiac disease poorly compliant with diet/medications, nutritional deficiency, and mood disorder who has been admitted for severe nutritional depletion, and who was profoundly hypocalcemic on admission. Hypocalcemia, severe -Presented with hypocalcemia that is severe with tetany, secondary to celiac disease that is severe and noncompliance with gluten free diet with malabsorption -Calcium less than 5 on admission which was corrected to 6.8 for hypoalbuminemia, ionized calcium 0.69 -Tetany is improving but remains with some muscle aches -Most recent vitamin D 25-OH checked in 02/2020 was severely low at 11, repeat here is pending -Replaced with approximately 11 g of calcium gluconate in first 48 hours and calcium is still jsut below normal after correction for hypoalbuminemia - vitamin D 25-OH pending -Continue calcitriol 2 mcg p.o. twice daily - calcium carbonate increased to 2500mg BID (1000mg elemental CA per dose = tdd 2g elemental calcium). -Follow calcium levels -Additional calcium gluconate if needed, levels slowly rising - Pt is poorly compliant with celiac diet, continues to request foods with gluten/lactose. Discussed celiac disease with pt at bedside and its affect on malnutrition, pt participates in conversation but with limited insight/judgement and would have these foods if he was allowed. Concern that he will continue eat gluten/lactose containing foods if available on return to the [facility]. (2) Severe protein-calorie malnutrition: Plan: -Severe protein calorie malnutrition with electrolyte abnormalities -BMI is 13.8 and he has lost 6 kg in the last 3 years -Appreciate nutrition consult. Gluten/lactose free, continue boost breeze TIDM Patient with longstanding history, Suspect combination of nutritional deficiency with celiac malabsorption and poor oral intake. Patient poorly compliant with celiac diet at present per corrections [employer]. Celiac/gluten and lactose free diet Continue boost Remeron nightly PPI deferred for concern of worsening malabsorption, patient with some stomachache suspected due to hypocalcemia. Follow clinically - Magnesium: 1.3 on admission,now improving but remains low--> replete with IV mag sulfate again today - Calcium: <5 on admission. replacing as above Phosphate improved with replacement -continue potassium phosphate 2 tabs p.o. 4 times daily -Potassium repleted, improved - continue calcitriol, cholecalciferol, calcium carbonate supplements. - continue folate, B12 supplementation with hx deficiencies - trend CMP, Mag, Phos daily - telemetry monitoring for arrhythmia potential with electrolyte derangements -Added on multivitamin with minerals (3) Celiac disease: Plan: Discussed with [facility] inf[facility]. Patient very noncompliant with medications and diet. Has history of severe malnutrition with iron and nutrient deficiency as above -Continue gluten-free diet here With a history of lymphocytic colitis related to celiac disease-previously on steroids but not right now (4) Supratherapeutic INR: Plan: - INR 9 on arrival secondary to severe vitamin K deficiency - Vit K 10 mg IV x 1 in ER - INR downtrended to 1.2, now up again to 1.3 - likely secondary to reduced vitamin K intake in diet, no body fat to store Vit K -Discussed with infirmary at [facility], patient without known underlying liver disease. Is not on warfarin at baseline, suspect vitamin K 2/2 severe nutritional depletion and noncompliance with celiac diet - daily PT/INR -Gave another dose of vitamin K 5 mg IV on 01/16 (5) GERD (gastroesophageal reflux disease): Plan: -Continue famotidine 20 mg p.o. twice daily (6) Prolonged QT interval: Plan: - EKG showing QTc 533 -Continue to monitor on telemetry -Avoid QT prolonging medications -Replacing electrolytes (7) Hypothyroid: Plan: Continue Synthroid Follow TSH in the morning (8) Lactose intolerance: Plan: - Lactose free - Lactaid PRN (9) Mood disorder: Plan: -continue buspar 5 mg bid and Remeron -Question if has OCD or an eating disorder -f/u with Psych at [facility] (10) PAF (paroxysmal atrial fibrillation): Plan: - 30 minutes of atrial fibrillation during hospitalization several years ago -No need for anticoagulation or rate control -Monitoring on telemetry -sinus rhythm thus far (11) Chronic deep vein thrombosis (DVT): Plan: -With a history of DVT, no longer on anticoagulation (12) Transaminitis: Plan: AST, ALT, alkaline phosphatase all elevated but improved from previous CT abdomen/pelvis from 08/2019 with normal-appearing liver -Bilirubin normal -Liver US normal here -hepatitis panel pending -follow LFTs (13) Elevated alkaline phosphatase level: Plan: As above (14) Anemia: Plan: Continue ferrous sulfate Hemoglobin 10.1 01/19 (15) Hypokalemia: Plan: Continue supplementation and spironolactone follow BMP (16) BPH (benign prostatic hyperplasia): Plan: Continue Flomax Plan: DVT ppx: Lovenox SQ Code Status: Full Code, but considering extremely frail state, need to broach this topic with the patient as he would be a poor candidate for resuscitation- defer to [facility] physician Dispo: Continued stay med/Tele, back to [facility] once calcium levels normalized Admission and Anticipated Discharge Date Admission Date: January 15, 2021 Review of Systems Review of Systems: Constitutional: Denies fever, chills Eyes: Denies double vision, vision change, eye pain ENT: Denies ear pain, sore throat, sinus pain Cardiovascular: Denies Chest pain, chest pressure, palpitations, extremity s welling Respiratory: Denies shortness of breath, cough, sputum production, difficulty breathing Gastrointestinal: Endorses intermittent constipation. Good appetite, -nausea/-vomiting/-ab pain today Genitourinary: Denies pain with urination, urinary urgency, urinary frequency Musculoskeletal: Endorses stiff joints/hands/legs improved from prior Integumentary:Denies rash, lesions, bruising Neurological: Denies headache, numbness, tingling, focal weakness Physical Exam Physical Exam: General: Frail, cachectic appearing male. Chronically ill, does not appear acutely toxic. Alert and oriented x3. HEENT: Atraumatic, normocephalic. Pupils equal and reactive to light. Extraocular movements intact without nystagmus. Visual acuity and hearing grossly intact. Pulm: Diminished,wheezes, -rales, -rhonchi. Symmetrical chest rise. No increase work of breathing. No respiratory distress. Cardiac: RRR, -mrg. Radial pulses intact and symmetrical. Abdominal: Mild epigastric tenderness to palpation without rebound, abdomen otherwise nontender nondistended, soft. BS present. Extremities: Thin. Last Putter Away strength, ankle dorsiflexion/plantar flexion grossly intact and symmetrical. Sensation to soft touch intact in hands and feet bilaterally without asymmetry. Results & Data Results & Data ([facility]) Vital Signs (Past 12 Hours) Vital Signs Temp Pulse Pulse Resp BP Pulse Ox 01/19/21 03:29 36.8 C 85 18 85/54 L 95 01/18/21 23:16 36.8 C 80 18 106/77 95 01/18/21 22:19 97 H 01/18/21 20:18 36.9 C 80 18 99/67 L 94 PG Care Time/CCT Total # of Minutes Spent Total Time Spent with Patient: Total time spent is greater than 50% in coordination of care (as documented) at patient's floor/unit and/or counseling patient: Coding Level of Care Code 25991 Subseq Hosp Care Lvl 2 Diagnoses Hypocalcemia E83.51 Severe protein-calorie malnutrition E43 Celiac disease K90.0 Supratherapeutic INR R79.1 GERD (gastroesophageal reflux disease) K21.9 Prolonged QT interval R94.31 Hypothyroid E03.9 Lactose intolerance E73.9 Mood disorder F39 PAF (paroxysmal atrial fibrillation) I48.0 Chronic deep vein thrombosis (DVT) I82.509 Transaminitis R74.01 Elevated alkaline phosphatase level R74.8 Anemia D64.9 Anemia type: unspecified type Hypokalemia E87.6 BPH (benign prostatic hyperplasia) N40.0 (1) Anemia Anemia type: unspecified type Qualified Code(s): D64.9 - Anemia, unspecified
[2021-01-19 08:13] LABS: Basophils # (auto) 0.01 K/uL (0-0.2); Basophils % (auto) 0.2 %; Eosinophils # (auto) 0.05 K/uL (0-0.5); Eosinophils % (auto) 0.9 %; Hematocrit (blood only) 30.1 % (42-52); Hemoglobin 10.1 g/dL (14.0-18.0); Immature Granulocytes # (auto) 0.01 K/uL (0.00-0.02); Immature Granulocytes % (auto) 0.2 %; Lymphocytes # (auto) 1.64 K/uL (1.2-3.4); Mean Corpuscular Hemoglobin 33.1 pg (25-34); Mean Corpuscular Hgb Conc 33.6 g/dL (32-36); Mean Corpuscular Volume 98.7 fL (80-100); Mean Platelet Volume 11.1 fL (7.4-10.4); Monocytes # (auto) 0.66 K/uL (0.11-0.59); Monocytes % (auto) 11.3 %; Neutrophils # (auto) 3.49 K/uL (1.4-6.5); Neutrophils % (auto) 59.4 %; Nucleated RBC # (auto) 0.02 K/uL (0-0); Nucleated RBC % (auto) 0.4 %; Platelet Count 269 K/uL (130-400); RDW Coefficient of Variation 18.5 % (11.5-14.5); RDW Standard Deviation 67.6 fL (36.4-46.3); Red Blood Count 3.05 M/uL (4.7-6.1); White Blood Count 5.86 K/uL (4.8-10.8)
[2021-01-19 08:31] LABS: BUN Creatinine Ratio 10.8 (10-20); Creatinine Clr Calc Pharmacy 96.2 ml/min; Est GFR (African American) 135.7 ml/min; Est GFR (Non-African American) 117.1 ml/min; Magnesium 1.6 mg/dl (1.8-2.4); Potassium 3.7 mmol/L (3.5-5.1)
[2021-01-19] MEDS: FAMOTIDINE 20 MG TAB PO SCH ×2 (09:00→21:34)
[2021-01-19] MEDS: CALCIUM CARBONATE 1250MG TAB PO SCH ×2 (09:00→17:40)
[2021-01-19] MEDS: MAGNESIUM OXIDE 400 MG TAB PO SCH ×2 (09:00→21:33)
[2021-01-19] MEDS: CALCITRIOL 0.25 MCG CAPSULE PO SCH ×2 (09:00→21:34)
[2021-01-19] MEDS: PANCREAZE (LIPASE 10,500U) CAP PO SCH ×3 (09:01→17:39)
[2021-01-19] MEDS: TAMSULOSIN HCL 0.4 MG CAP PO SCH ×2 (09:01→21:34)
[2021-01-19] MEDS: POT PHOSPHATE MONOBASIC W/ SOD TAB PO SCH ×4 (09:01→21:33)
[2021-01-19] MEDS: busPIRone 5 MG TAB PO SCH ×2 (09:02→21:34)
[2021-01-19] MEDS: THIAMINE HCL 100 MG TAB PO SCH ×2 (09:02→21:32)
[2021-01-19] MEDS: CEROVITE ADV FORMULA TAB PO SCH (09:03)
[2021-01-19] MEDS: SPIRONOLACTONE 25 MG TAB PO SCH (09:03)
[2021-01-19] MEDS: LACTASE 3000 UNIT TAB PO SCH ×3 (09:03→19:49)
[2021-01-19] MEDS: CHOLECALCIFEROL 1,000 UNITS 25 MCG TAB PO SCH (09:03)
[2021-01-19] MEDS: FLUTICASONE FUROATE 200MCG 14 PUFFS/INHALER INH SCH (09:10)
[2021-01-19] MEDS ORDERED: CALCIUM CARBONATE 1250MG TAB PO ONE ×2 (09:45→10:00)
[2021-01-19] MEDS: MIRTAZAPINE SOLTAB 15 MG PO SCH (21:33)
[2021-01-19] MEDS: ENOXAPARIN INJ 30 MG/0.3 ML SYR SQ SCH (21:33)
[2021-01-19] MEDS: FOLIC ACID 1 MG TAB PO SCH (21:34)
[2021-01-19] MEDS: FERROUS SULFATE 325 MG TAB PO SCH (21:34)
[2021-01-20] MEDS: LEVOTHYROXINE SODIUM 75 MCG TABLET PO SCH (05:44)
[2021-01-20 07:01] LABS: Albumin Level 1.4 gm/dl (3.4-5.0); BUN Creatinine Ratio 18.5 (10-20); Calcium 6.3 mg/dl (8.5-10.1); Creatinine Clr Calc Pharmacy 85.7 ml/min; Est GFR (African American) 129.4 ml/min; Est GFR (Non-African American) 111.7 ml/min; Potassium 3.6 mmol/L (3.5-5.1)
[2021-01-20 07:04] LABS: Albumin Globulin Ratio 0.3 (0.9-2); Bilirubin,Total 0.2 mg/dl (0.2-1); Globulin 4.4 gm/dl (2.5-4.0); Total Protein 5.8 gm/dl (6.4-8.2)
[2021-01-20] MEDS: CALCIUM CARBONATE 1250MG TAB PO SCH ×2 (07:54→18:09)
[2021-01-20] MEDS: LACTASE 3000 UNIT TAB PO SCH ×3 (07:54→17:05)
[2021-01-20] MEDS: FAMOTIDINE 20 MG TAB PO SCH (07:54)
[2021-01-20] MEDS: CEROVITE ADV FORMULA TAB PO SCH (07:55)
[2021-01-20] MEDS: PANCREAZE (LIPASE 10,500U) CAP PO SCH ×3 (07:55→17:05)
[2021-01-20] MEDS: busPIRone 5 MG TAB PO SCH ×2 (07:55→20:12)
[2021-01-20] MEDS: CHOLECALCIFEROL 1,000 UNITS 25 MCG TAB PO SCH (07:56)
[2021-01-20] MEDS: SPIRONOLACTONE 25 MG TAB PO SCH (07:56)
[2021-01-20] MEDS: TAMSULOSIN HCL 0.4 MG CAP PO SCH ×2 (07:57→20:14)
[2021-01-20] MEDS: CALCITRIOL 0.25 MCG CAPSULE PO SCH ×2 (07:57→20:11)
[2021-01-20] MEDS: THIAMINE HCL 100 MG TAB PO SCH ×2 (07:58→20:14)
[2021-01-20] MEDS: POT PHOSPHATE MONOBASIC W/ SOD TAB PO SCH ×4 (07:58→16:52)
[2021-01-20] MEDS: FLUTICASONE FUROATE 200MCG 14 PUFFS/INHALER INH SCH (07:59)
[2021-01-20] MEDS: MAGNESIUM OXIDE 400 MG TAB PO SCH ×2 (08:00→20:10)
[2021-01-20] MEDS ORDERED: SODIUM CHLORIDE 0.9% 1000ML 250 ML IV ONE (11:29)
--- NOTE | 2021-01-20 12:34 | Hospitalist Progress Note ---
Date of Service January 20, 2021 Assessment & Plan (1) Hypocalcemia: Plan: Rikki is a 60-year-old male with a past medical history of celiac disease poorly compliant with diet/medications, nutritional deficiency, and mood disorder who has been admitted for severe nutritional depletion, and who was profoundly hypocalcemic on admission. Hypocalcemia, severe -Presented with hypocalcemia that is severe with tetany, secondary to celiac disease that is severe and noncompliance with gluten free diet with malabsorption -Calcium less than 5 on admission which was corrected to 6.8 for hypoalbuminemia, ionized calcium 0.69 -Tetany is dramatically improved on exam today, patient with greatly improved ease of finger flexion/dorsiflexion -Most recent vitamin D 25-OH checked in 02/2020 was severely low at 11, repeat here is pending -Replaced with approximately 11 g of calcium gluconate in first 48 hours and calcium is still jsut below normal after correction for hypoalbuminemia - vitamin D 25-OH low 11.0. Continue repletion 4000IU daily -Continue calcitriol 2 mcg p.o. twice daily - calcium carbonate increased to 2500mg BID (1000mg elemental CA per dose = tdd 2g elemental calcium). -Follow calcium levels -Additional calcium gluconate if needed, levels slowly rising - Pt is poorly compliant with celiac diet, continues to request foods with gluten/lactose. Discussed celiac disease with pt at bedside and its affect on malnutrition, pt participates in conversation but with limited insight/judgement and would have these foods if he was allowed. Concern that he will continue eat gluten/lactose containing foods if [facility]. 01/20: Calcium levels continue to rise, not yet normalized. Albumin 1.4, remains low.Patient remains intermittently hypotensive, continuing to encourage p.o. intake. (2) Severe protein-calorie malnutrition: Plan: -Severe protein calorie malnutrition with electrolyte abnormalities -BMI is 13.8 and he has lost 6 kg in the last 3 years -Appreciate nutrition consult. Gluten/lactose free, continue boost breeze TIDM Patient with longstanding history, Suspect combination of nutritional deficiency with celiac malabsorption and poor oral intake. Patient poorly compliant with celiac diet at present per corrections officers. Celiac/gluten and lactose free diet Continue boost Remeron nightly PPI deferred for concern of worsening malabsorption, patient with some stomachache suspected due to hypocalcemia. Follow clinically - Magnesium: 1.3 on admission,now improving but remains low--> replete with IV mag sulfate again today - Calcium: <5 on admission. replacing as above Phosphate improved with replacement -continue potassium phosphate 2 tabs p.o. 4 times daily -Potassium repleted, improved - continue calcitriol, cholecalciferol, calcium carbonate supplements. - continue folate, B12 supplementation with hx deficiencies - trend CMP, Mag, Phos daily - telemetry monitoring for arrhythmia potential with electrolyte derangements -Added on multivitamin with minerals (3) Celiac disease: Plan: Discussed with [facility]. Patient very noncompliant with medications and diet. Has history of severe malnutrition with iron and nutrient deficiency as above -Continue gluten-free diet here With a history of lymphocytic colitis related to celiac disease-previously on steroids but not right now (4) Supratherapeutic INR: Plan: - INR 9 on arrival secondary to severe vitamin K deficiency - Vit K 10 mg IV x 1 in ER - INR downtrended to 1.2, now up again to 1.3 - likely secondary to reduced vitamin K intake in diet, no body fat to store Vit K -Discussed with infirmary at [facility], patient without known underlying liver disease. Is not on warfarin at baseline, suspect vitamin K 2/2 severe nutritional depletion and noncompliance with celiac diet - daily PT/INR -Gave another dose of vitamin K 5 mg IV on 01/16 (5) GERD (gastroesophageal reflux disease): Plan: -Continue famotidine 20 mg p.o. twice daily (6) Prolonged QT interval: Plan: - EKG showing QTc 533 -Continue to monitor on telemetry -Avoid QT prolonging medications -Replacing electrolytes (7) Hypothyroid: Plan: Continue Synthroid Follow TSH in the morning (8) Lactose intolerance: Plan: - Lactose free - Lactaid PRN (9) Mood disorder: Plan: -continue buspar 5 mg bid and Remeron -Question if has OCD or an eating disorder -f/u with Psych at jail (10) PAF (paroxysmal atrial fibrillation): Plan: - 30 minutes of atrial fibrillation during hospitalization several years ago -No need for anticoagulation or rate control -Monitoring on telemetry -sinus rhythm thus far (11) Chronic deep vein thrombosis (DVT): Plan: -With a history of DVT, no longer on anticoagulation (12) Transaminitis: Plan: AST, ALT, alkaline phosphatase all elevated but improved from previous CT abdomen/pelvis from 08/2019 with normal-appearing liver -Bilirubin normal -Liver US normal here -hepatitis panel pending -follow LFTs (13) Elevated alkaline phosphatase level: Plan: As above (14) Anemia: Plan: Continue ferrous sulfate Hemoglobin 10.1 01/19 (15) Hypokalemia: Plan: Continue supplementation and spironolactone follow BMP (16) BPH (benign prostatic hyperplasia): Plan: Continue Flomax Plan: DVT ppx: Lovenox SQ Code Status: Full Code, but considering extremely frail state, need to broach this topic with the patient as he would be a poor candidate for resuscitation- defer to jail physician Dispo: Continued stay med/Tele, back to jail once calcium levels normalized Admission and Anticipated Discharge Date Admission Date: January 15, 2021 Subjective Seen at bedside today. His hand stiffness and finger flexion/extension is greatly improved compared to prior. Still appears frail and resting in a flexed position, but moving much more easily. Revisited diet, uptrending calcium levels, and that due to his celiac it is critically important for him to stick to a gluten-free diet when returning to the jail. This discussed with the patient in the [facility], patient acknowledges that he has been told this before although jail staff note that he often refuses the celiac tray. Patient answers most questions appropriately nods to information from provider but does not verbalize back the risk/benefits of a regular versus celiac diet at bedside assessment Review of Systems Review of Systems: Constitutional: Denies fever, chills Eyes: Denies double vision, vision change, eye pain ENT: Denies ear pain, sore throat, sinus pain Cardiovascular: Denies Chest pain, chest pressure, palpitations, extremity swelling Respiratory: Denies shortness of breath, cough, sputum production, difficulty breathing Gastrointestinal: Endorses intermittent constipation. Good appetite, increased pain/nausea with supplements today. Genitourinary: Denies pain with urination, urinary urgency, urinary frequency Musculoskeletal: Endorses stiff joints/hands/legs improved from prior Integumentary:Denies rash, lesions, bruising Neurological: Denies headache, numbness, tingling, focal weakness Physical Exam Physical Exam: General: Frail, cachectic appearing male. Chronically ill, does not appear acutely toxic. Alert and oriented x3. HEENT: Atraumatic, normocephalic. Pupils equal and reactive to light. Extraocular movements intact without nystagmus. Visual acuity and hearing grossly intact. Pulm: Diminished,wheezes, -rales, -rhonchi. Symmetrical chest rise. No increase work of breathing. No respiratory distress. Cardiac: RRR, -mrg. Radial pulses intact and symmetrical. Abdominal: Mild epigastric tenderness to palpation without rebound, abdomen o therwise nontender nondistended, soft. BS present. Extremities: Thin. [employer] strength, ankle dorsiflexion/plantar flexion grossly intact and symmetrical and with improved ease today. Sensation to soft touch intact in hands and feet bilaterally without asymmetry. Results & Data Results & Data ([facility]) Vital Signs (Past 12 Hours) Vital Signs Temp Pulse Resp BP Pulse Ox 01/20/21 11:48 36.9 C 68 18 84/57 L 96 01/20/21 08:04 36.4 C L 68 18 91/60 L 96 01/20/21 04:00 37.2 C 72 18 97/65 L 93 PG Care Time/CCT Total # of Minutes Spent Total Time Spent with Patient: Total time spent is greater than 50% in coordination of care (as documented) at patient's floor/unit and/or counseling patient: Coding Level of Care Code 09667 Subseq Hosp Care Lvl 3 Diagnoses Hypocalcemia E83.51 Severe protein-calorie malnutrition E43 Celiac disease K90.0 Supratherapeutic INR R79.1 GERD (gastroesophageal reflux disease) K21.9 Prolonged QT interval R94.31 Hypothyroid E03.9 Lactose intolerance E73.9 Mood disorder F39 PAF (paroxysmal atrial fibrillation) I48.0 Chronic deep vein thrombosis (DVT) I82.509 Transaminitis R74.01 Elevated alkaline phosphatase level R74.8 Anemia D64.9 Anemia type: unspecified type Hypokalemia E87.6 BPH (benign prostatic hyperplasia) N40.0 (1) Anemia Anemia type: unspecified type Qualified Code(s): D64.9 - Anemia, unspecified
[2021-01-20] MEDS ORDERED: LORazepam 0.25 MG/0.5 ML VIAL IV STA (16:48)
[2021-01-20] MEDS: FERROUS SULFATE 325 MG TAB PO SCH (20:10)
[2021-01-20] MEDS: FOLIC ACID 1 MG TAB PO SCH (20:11)
[2021-01-20] MEDS: FAMOTIDINE 20 MG in SYRINGE 3 ML IV SCH (20:22)
[2021-01-20] MEDS: SUCRALFATE 1 GM/10 ML UDC PO SCH (20:23)
[2021-01-20] MEDS: ENOXAPARIN INJ 30 MG/0.3 ML SYR SQ SCH (20:23)
[2021-01-20] MEDS: MIRTAZAPINE SOLTAB 15 MG PO SCH (20:23)
[2021-01-21] MEDS: LEVOTHYROXINE SODIUM 75 MCG TABLET PO SCH (05:50)
[2021-01-21 07:01] LABS: Basophils # (auto) 0.01 K/uL (0-0.2); Basophils % (auto) 0.2 %; Eosinophils # (auto) 0.04 K/uL (0-0.5); Eosinophils % (auto) 0.8 %; Hematocrit (blood only) 27.7 % (42-52); Hemoglobin 9.3 g/dL (14.0-18.0); Immature Granulocytes # (auto) 0.01 K/uL (0.00-0.02); Immature Granulocytes % (auto) 0.2 %; Lymphocytes # (auto) 1.05 K/uL (1.2-3.4); Lymphocytes % (auto) 20.8 %; Mean Corpuscular Hemoglobin 33.8 pg (25-34); Mean Corpuscular Hgb Conc 33.6 g/dL (32-36); Mean Corpuscular Volume 100.7 fL (80-100); Mean Platelet Volume 11.3 fL (7.4-10.4); Monocytes # (auto) 0.73 K/uL (0.11-0.59); Monocytes % (auto) 14.5 %; Neutrophils % (auto) 63.5 %; Platelet Count 279 K/uL (130-400); RDW Coefficient of Variation 17.8 % (11.5-14.5); RDW Standard Deviation 64.1 fL (36.4-46.3); Red Blood Count 2.75 M/uL (4.7-6.1); White Blood Count 5.04 K/uL (4.8-10.8)
[2021-01-21 07:38] LABS: Albumin Level 1.3 gm/dl (3.4-5.0); BUN Creatinine Ratio 24.9 (10-20); Creatinine Clr Calc Pharmacy 117.5 ml/min; Est GFR (African American) 147.5 ml/min; Est GFR (Non-African American) 127.3 ml/min; Potassium 3.2 mmol/L (3.5-5.1)
[2021-01-21 07:41] LABS: Albumin Globulin Ratio 0.3 (0.9-2); Bilirubin,Total 0.2 mg/dl (0.2-1); Phosphorus 2.3 mg/dl (2.5-4.9); Total Protein 5.3 gm/dl (6.4-8.2)
[2021-01-21] MEDS: POTASSIUM CHLORIDE / WTR 10 MEQ/100 ML PLCT IV SCH ×4 (09:20→13:39)
[2021-01-21] MEDS: SUCRALFATE 1 GM/10 ML UDC PO SCH (09:26)
[2021-01-21] MEDS: FLUTICASONE FUROATE 200MCG 14 PUFFS/INHALER INH SCH (09:27)
[2021-01-21] MEDS: LACTASE 3000 UNIT TAB PO SCH ×3 (09:28→17:15)
[2021-01-21] MEDS: CALCIUM CARBONATE 1250MG TAB PO SCH ×2 (09:28→17:22)
[2021-01-21] MEDS: CALCITRIOL 0.25 MCG CAPSULE PO SCH ×2 (09:28→20:49)
[2021-01-21] MEDS: SPIRONOLACTONE 25 MG TAB PO SCH (09:28)
[2021-01-21] MEDS: MAGNESIUM OXIDE 400 MG TAB PO SCH ×2 (09:29→20:50)
[2021-01-21] MEDS: THIAMINE HCL 100 MG TAB PO SCH ×2 (09:31→20:51)
[2021-01-21] MEDS: busPIRone 5 MG TAB PO SCH ×2 (09:31→20:49)
[2021-01-21] MEDS: POT PHOSPHATE MONOBASIC W/ SOD TAB PO SCH ×4 (09:31→20:50)
[2021-01-21] MEDS: TAMSULOSIN HCL 0.4 MG CAP PO SCH ×2 (09:31→20:50)
[2021-01-21] MEDS: CEROVITE ADV FORMULA TAB PO SCH (09:31)
[2021-01-21] MEDS: CHOLECALCIFEROL 1,000 UNITS 25 MCG TAB PO SCH (09:31)
[2021-01-21] MEDS: PANCREAZE (LIPASE 10,500U) CAP PO SCH ×3 (09:32→17:16)
[2021-01-21] MEDS: FAMOTIDINE 20 MG in SYRINGE 3 ML IV SCH (09:53)
--- NOTE | 2021-01-21 12:57 | Hospitalist Progress Note ---
Date of Service January 21, 2021 Assessment & Plan (1) Hypocalcemia: Plan: Rikki is a 60-year-old male with a past medical history of celiac disease poorly compliant with diet/medications, nutritional deficiency, and mood disorder who has been admitted for severe nutritional depletion, and who was profoundly hypocalcemic on admission. Hypocalcemia, severe -Presented with hypocalcemia that is severe with tetany, secondary to celiac disease that is severe and noncompliance with gluten free diet with malabsorption -Calcium less than 5 on admission which was corrected to 6.8 for hypoalbuminemia, ionized calcium 0.69 -Tetany has greatly improved, nearly resolved -Most recent vitamin D 25-OH checked in 02/2020 was severely low at 11, repeat here is pending -Replaced with approximately 11 g of calcium gluconate in first 48 hours and stefanie cium is still jsut below normal after correction for hypoalbuminemia - vitamin D 25-OH low 11.0. Continue repletion 4000IU daily -Continue calcitriol 2 mcg p.o. twice daily - calcium carbonate increased to 2500mg BID (1000mg elemental CA per dose = tdd 2g elemental calcium). -Follow calcium levels -Additional calcium gluconate if needed, levels slowly rising - Pt is poorly compliant with celiac diet, continues to request foods with gluten/lactose. Discussed celiac disease with pt at bedside and its affect on malnutrition, pt participates in conversation but with limited insight/judgement and would have these foods if he was allowed. Concern that he will continue eat gluten/lactose containing foods if available [facility]. 01/20: Calcium levels continue to rise, not yet normalized. Albumin 1.4, remains low.Patient remains intermittently hypotensive, continuing to encourage p.o. intake. 01/21: Potassium, calcium remain low patient oral repletion somewhat limited by abdominal discomfort. Improved with Carafate. Will add some IV repletion and hold 1/2 doses of phosphate/oral potassium for stomach irritation. Continue to trend (2) Severe protein-calorie malnutrition: Plan: -Severe protein calorie malnutrition with electrolyte abnormalities -BMI is 13.8 and he has lost 6 kg in the last 3 years -Appreciate nutrition consult. Gluten/lactose free, continue boost breeze TIDM Patient with longstanding history, Suspect combination of nutritional deficiency with celiac malabsorption and poor oral intake. Patient poorly compliant with celiac diet at present per corrections officers. Celiac/gluten and lactose free diet Continue boost Remeron nightly PPI deferred for concern of worsening malabsorption, patient with some stomachache suspected due to hypocalcemia. Follow clinically - Magnesium: 1.3 on admission,now improving but remains low--> replete with IV mag sulfate again today - Calcium: <5 on admission. replacing as above Phosphate improved with replacement -continue potassium phosphate 2 tabs p.o. 4 times daily -Potassium repleted, improved - continue calcitriol, cholecalciferol, calcium carbonate supplements. - continue folate, B12 supplementation with hx deficiencies - trend CMP, Mag, Phos daily - telemetry monitoring for arrhythmia potential with electrolyte derangements -Added on multivitamin with minerals (3) Celiac disease: Plan: Discussed with [facility]. Patient very noncompliant with medications and diet. Has history of severe malnutrition with iron and nutrient deficiency as above -Continue gluten-free diet here With a history of lymphocytic colitis related to celiac disease-previously on steroids but not right now (4) Supratherapeutic INR: Plan: - INR 9 on arrival secondary to severe vitamin K deficiency - Vit K 10 mg IV x 1 in ER - INR downtrended to 1.2, now up again to 1.3 - likely secondary to reduced vitamin K intake in diet, no body fat to store Vit K -Discussed with infirmary at [facility], patient without known underlying liver disease. Is not on warfarin at baseline, suspect vitamin K 2/2 severe nutritional depletion and noncompliance with celiac diet - daily PT/INR -Gave another dose of vitamin K 5 mg IV on 01/16 (5) GERD (gastroesophageal reflux disease): Plan: -Continue famotidine 20 mg p.o. twice daily (6) Prolonged QT interval: Plan: - EKG showing QTc 533 -Continue to monitor on telemetry -Avoid QT prolonging medications -Replacing electrolytes (7) Hypothyroid: Plan: Continue Synthroid Follow TSH in the morning (8) Lactose intolerance: Plan: - Lactose free - Lactaid PRN (9) Mood disorder: Plan: -continue buspar 5 mg bid and Remeron -Question if has OCD or an eating disorder -f/u with Psych at [facility] (10) PAF (paroxysmal atrial fibrillation): Plan: - 30 minutes of atrial fibrillation during hospitalization several years ago -No need for anticoagulation or rate control -Monitoring on telemetry -sinus rhythm thus far (11) Chronic deep vein thrombosis (DVT): Plan: -With a history of DVT, no longer on anticoagulation (12) Transaminitis: Plan: AST, ALT, alkaline phosphatase all elevated but improved from previous CT abdomen/pelvis from 08/2019 with normal-appearing liver -Bilirubin normal -Liver US normal here -hepatitis panel pending -follow LFTs (13) Elevated alkaline phosphatase level: Plan: As above (14) Anemia: Plan: Continue ferrous sulfate Hemoglobin 10.1 01/19 (15) Hypokalemia: Plan: Continue supplementation and spironolactone follow BMP (16) BPH (benign prostatic hyperplasia): Plan: Continue Flomax Plan: DVT ppx: Lovenox SQ Code Status: Full Code, but considering extremely frail state, need to broach this topic with the patient as he would be a poor candidate for resuscitation- defer to [facility] physician Dispo: Continued stay med/Tele, back to [facility] once calcium levels normalized Admission and Anticipated Discharge Date Admission Date: January 15, 2021 Subjective Seen at bedside this morning. He reports he continues to have a slight stomachache, but feels the Carafate helped. Otherwise clinically unchanged today, no diarrhea, no chest pain, no chest pressure. Moving hands and extremities with relative ease, similar to prior. No vomiting. Review of Systems Review of Systems: Constitutional: Denies fever, chills Eyes: Denies double vision, vision change, eye pain ENT: Denies ear pain, sore throat, sinus pain Cardiovascular: Denies Chest pain, chest pressure, palpitations, extremity swelling Respiratory: Denies shortness of breath, cough, sputum production, difficulty breathing Gastrointestinal: Endorses intermittent constipation. Good appetite, increased pain/nausea with supplements today. Genitourinary: Denies pain with urination, urinary urgency, urinary frequency Musculoskeletal: Endorses stiff joints/hands/legs, moving much more easily with calcium repletion Integumentary:Denies rash, lesions, bruising Neurological: Denies headache, numbness, tingling, focal weakness Physical Exam Physical Exam: General: Frail, cachectic appearing male. Chronically ill, does not appear acutely toxic. Alert and oriented x3. HEENT: Atraumatic, normocephalic. Pupils equal and reactive to light. Extraocular movements intact without nystagmus. Visual acuity and hearing grossly intact. Pulm: Diminished,wheezes, -rales, -rhonchi. Symmetrical chest rise. No increase work of breathing. No respiratory distress. Cardiac: RRR, -mrg. Radial pulses intact and symmetrical. Abdominal: Mild epigastric tenderness to palpation without rebound, abdomen otherwise nontender nondistended, soft. BS present. Extremities: Thin. Rn Transplant strength, ankle dorsiflexion/plantar flexion grossly intact and symmetrical and with improved ease today. Sensation to soft touch intact in hands and feet bilaterally without asymmetry. Results & Data Results & Data ([facility]) Vital Signs (Past 12 Hours) Vital Signs Temp Pulse Pulse Resp BP BP Pulse Ox 01/21/21 08:00 36.4 C L 72 18 101/68 97 01/21/21 07:28 62 01/21/21 02:53 36.4 C L 73 16 87/57 L 98 Pulse Ox 01/21/21 08:00 92 01/21/21 07:28 01/21/21 02:53 PG Care Time/CCT Total # of Minutes Spent Total Time Spent with Patient: Total time spent is greater than 50% in coordination of care (as documented) at patient's floor/unit and/or counseling patient: Coding Level of Care Code 34743 Subseq Hosp Care Lvl 3 Diagnoses Hypocalcemia E83.51 Severe protein-calorie malnutrition E43 Celiac disease K90.0 Supratherapeutic INR R79.1 GERD (gastroesophageal reflux disease) K21.9 Prolonged QT interval R94.31 Hypothyroid E03.9 Lactose intolerance E73.9 Mood disorder F39 PAF (paroxysmal atrial fibrillation) I48.0 Chronic deep vein thrombosis (DVT) I82.509 Transaminitis R74.01 Elevated alkaline phosphatase level R74.8 Anemia D64.9 Anemia type: unspecified type Hypokalemia E87.6 BPH (benign prostatic hyperplasia) N40.0 (1) Anemia Anemia type: unspecified type Qualified Code(s): D64.9 - Anemia, unspecified
[2021-01-21] MEDS ORDERED: CALCIUM CARBONATE 1250MG TAB PO SCH (19:00)
[2021-01-21] MEDS: FOLIC ACID 1 MG TAB PO SCH (20:50)
[2021-01-21] MEDS: MIRTAZAPINE SOLTAB 15 MG PO SCH (20:50)
[2021-01-21] MEDS: FERROUS SULFATE 325 MG TAB PO SCH (20:50)
[2021-01-21] MEDS: ENOXAPARIN INJ 30 MG/0.3 ML SYR SQ SCH (20:51)
[2021-01-21] MEDS ORDERED: LOPERAMIDE HCL 2 MG CAP PO STA (21:50)
[2021-01-22] MEDS: LEVOTHYROXINE SODIUM 75 MCG TABLET PO SCH (06:20)
[2021-01-22 07:58] LABS: Basophils # (auto) 0.01 K/uL (0-0.2); Basophils % (auto) 0.2 %; Eosinophils # (auto) 0.03 K/uL (0-0.5); Eosinophils % (auto) 0.6 %; Hematocrit (blood only) 30.2 % (42-52); Immature Granulocytes # (auto) 0.01 K/uL (0.00-0.02); Immature Granulocytes % (auto) 0.2 %; Lymphocytes % (auto) 19.4 %; Mean Corpuscular Hemoglobin 32.9 pg (25-34); Mean Corpuscular Hgb Conc 33.1 g/dL (32-36); Mean Corpuscular Volume 99.3 fL (80-100); Mean Platelet Volume 11.1 fL (7.4-10.4); Monocytes # (auto) 0.63 K/uL (0.11-0.59); Monocytes % (auto) 12.2 %; Neutrophils # (auto) 3.47 K/uL (1.4-6.5); Neutrophils % (auto) 67.4 %; Platelet Count 222 K/uL (130-400); RDW Coefficient of Variation 17.4 % (11.5-14.5); RDW Standard Deviation 61.2 fL (36.4-46.3); Red Blood Count 3.04 M/uL (4.7-6.1); White Blood Count 5.15 K/uL (4.8-10.8)
[2021-01-22 08:33] LABS: Albumin Globulin Ratio 0.3 (0.9-2); Albumin Level 1.3 gm/dl (3.4-5.0); BUN Creatinine Ratio 23.2 (10-20); Bilirubin,Total 0.2 mg/dl (0.2-1); Calcium 6.1 mg/dl (8.5-10.1); Creatinine Clr Calc Pharmacy 115.6 ml/min; Est GFR (African American) 147.5 ml/min; Est GFR (Non-African American) 127.3 ml/min; Globulin 4.1 gm/dl (2.5-4.0); Phosphorus 2.9 mg/dl (2.5-4.9); Potassium 3.6 mmol/L (3.5-5.1); Total Protein 5.4 gm/dl (6.4-8.2)
[2021-01-22] MEDS: CALCIUM CARBONATE 1,250 MG/5 ML UDC PO SCH ×2 (08:36→22:02)
[2021-01-22] MEDS: FLUTICASONE FUROATE 200MCG 14 PUFFS/INHALER INH SCH (08:37)
[2021-01-22] MEDS: LACTASE 3000 UNIT TAB PO SCH ×3 (10:50→16:30)
[2021-01-22] MEDS: PANCREAZE (LIPASE 10,500U) CAP PO SCH ×3 (10:50→16:30)
[2021-01-22] MEDS: POT PHOSPHATE MONOBASIC W/ SOD TAB PO SCH ×4 (10:51→22:08)
[2021-01-22] MEDS: TAMSULOSIN HCL 0.4 MG CAP PO SCH ×2 (11:19→22:08)
[2021-01-22] MEDS: MAGNESIUM OXIDE 400 MG TAB PO SCH ×2 (11:19→22:07)
[2021-01-22] MEDS: THIAMINE HCL 100 MG TAB PO SCH ×2 (11:19→22:08)
[2021-01-22] MEDS: CALCITRIOL 0.25 MCG CAPSULE PO SCH ×2 (11:19→22:24)
[2021-01-22] MEDS: CEROVITE ADV FORMULA TAB PO SCH (11:20)
[2021-01-22] MEDS: CHOLECALCIFEROL 1,000 UNITS 25 MCG TAB PO SCH (11:20)
[2021-01-22] MEDS: busPIRone 5 MG TAB PO SCH ×2 (11:20→22:07)
[2021-01-22] MEDS: SPIRONOLACTONE 25 MG TAB PO SCH (11:21)
--- NOTE | 2021-01-22 12:45 | Hospitalist Progress Note ---
Date of Service January 22, 2021 Assessment & Plan (1) Hypocalcemia: Plan: Rikki is a 60-year-old male with a past medical history of celiac disease poorly compliant with diet/medications, nutritional deficiency, and mood disorder who has been admitted for severe nutritional depletion, and who was profoundly hypocalcemic on admission. Hypocalcemia, severe -Presented with hypocalcemia that is severe with tetany, secondary to celiac disease that is severe and noncompliance with gluten free diet with malabsorption -Calcium less than 5 on admission which was corrected to 6.8 for hypoalbuminemia, ionized calcium 0.69 -Tetany has improved -Most recent vitamin D 25-OH checked in 02/2020 was severely low at 11, repeat here is pending -Replaced with approximately 11 g of calcium gluconate in first 48 hours and calcium is still jsut below normal after correction for hypoalbuminemia - vitamin D 25-OH low 11.0. Continue repletion 4000IU daily -Continue calcitriol 2 mcg p.o. twice daily - calcium carbonate increased to 2500mg BID (1000mg elemental CA per dose = tdd 2g elemental calcium), decreased back to 1250 mg twice daily due to patient discomfort and gastric upset -Follow calcium levels -Additional calcium gluconate if needed, levels slowly rising - Pt is poorly compliant with celiac diet, continues to request foods with gluten/lactose. Discussed celiac disease with pt at bedside and its affect on malnutrition, pt participates in conversation but with limited insight/judgement and would have these foods if he was allowed. Concern that he will continue eat gluten/lactose containing foods if available on return to the correction. 01/20: Calcium levels continue to rise, not yet normalized. Albumin 1.4, remains low.Patient remains intermittently hypotensive, continuing to encourage p.o. intake. 01/21: Potassium, calcium remain low patient oral repletion somewhat limited by abdominal discomfort. Improved with Carafate. Will add some IV repletion and hold 1/2 doses of phosphate/oral potassium for stomach irritation. Continue to trend 01/22: Phosphate, potassium normal. Patient stomach discomfort improved with reduced K-Phos and reduced calcium dosing. Calcium slowly uptrending. (2) Severe protein-calorie malnutrition: Plan: -Severe protein calorie malnutrition with electrolyte abnormalities -BMI is 13.8 and he has lost 6 kg in the last 3 years -Appreciate nutrition consult. Gluten/lactose free, continue boost breeze TIDM Patient with longstanding history, Suspect combination of nutritional deficie ncy with celiac malabsorption and poor oral intake. Patient poorly compliant with celiac diet at present per corrections officers. Celiac/gluten and lactose free diet Continue boost Remeron nightly PPI deferred for concern of worsening malabsorption, patient with some stomachache suspected due to hypocalcemia. Follow clinically - Magnesium: 1.3 on admission,now improving but remains low--> replete with IV mag sulfate again today - Calcium: <5 on admission. replacing as above Phosphate improved with replacement -continue potassium phosphate 2 tabs p.o. 4 times daily -Potassium repleted, improved - continue calcitriol, cholecalciferol, calcium carbonate supplements. - continue folate, B12 supplementation with hx deficiencies - trend CMP, Mag, Phos daily - telemetry monitoring for arrhythmia potential with electrolyte derangements -Added on multivitamin with minerals (3) Celiac disease: Plan: Discussed with [facility] inf[facility]. Patient very noncompliant with medications and diet. Has history of severe malnutrition with iron and nutrient deficiency as above -Continue gluten-free diet here With a history of lymphocytic colitis related to celiac disease-previously on steroids but not right now (4) Supratherapeutic INR: Plan: - INR 9 on arrival secondary to severe vitamin K deficiency - Vit K 10 mg IV x 1 in ER - likely secondary to reduced vitamin K intake in diet, no body fat to store Vit K -Discussed with infirmary at [facility], patient without known underlying liver disease. Is not on warfarin at baseline, suspect vitamin K 2/2 severe nutritional depletion and noncompliance with celiac diet INR/PT repeat pending -Gave another dose of vitamin K 5 mg IV on 01/16 (5) GERD (gastroesophageal reflux disease): Plan: -Continue famotidine 20 mg p.o. twice daily (6) Prolonged QT interval: Plan: - EKG showing QTc 533 -Continue to monitor on telemetry -Avoid QT prolonging medications -Replacing electrolytes (7) Hypothyroid: Plan: Continue Synthroid Follow TSH in the morning (8) Lactose intolerance: Plan: - Lactose free - Lactaid PRN (9) Mood disorder: Plan: -continue buspar 5 mg bid and Remeron -Question if has OCD or an eating disorder -f/u with Psych at correction (10) PAF (paroxysmal atrial fibrillation): Plan: - 30 minutes of atrial fibrillation during hospitalization several years ago -No need for anticoagulation or rate control -Monitoring on telemetry -sinus rhythm thus far (11) Chronic deep vein thrombosis (DVT): Plan: -With a history of DVT, no longer on anticoagulation (12) Transaminitis: Plan: AST, ALT, alkaline phosphatase all elevated but improved from previous CT abdomen/pelvis from 08/2019 with normal-appearing liver -Bilirubin normal -Liver US normal here -hepatitis panel pending -follow LFTs (13) Elevated alkaline phosphatase level: Plan: As above (14) Anemia: Plan: Continue ferrous sulfate Hemoglobin remained stable (15) Hypokalemia: Plan: Continue supplementation and spironolactone follow BMP (16) BPH (benign prostatic hyperplasia): Plan: Continue Flomax Plan: DVT ppx: Lovenox SQ Code Status: Full Code, but considering extremely frail state, need to broach this topic with the patient as he would be a poor candidate for resuscitation- defer to correction physician Dispo: Continued stay med/Tele, back to correction once calcium levels normalized Admission and Anticipated Discharge Date Admission Date: January 15, 2021 Subjective Seen at bedside this morning. Patient feels his abdominal pain and discomfort has improved with reduced pill burden and moving K-Phos to 1 pill 4 times daily and slightly reduced calcium total daily dose. No new concerns/complaints today. Continues to move his hands easily. Agrees to continue taking supplements today, no additional questions or concerns voiced. Review of Systems Review of Systems: Constitutional: Denies fever, chills Eyes: Denies double vision, vision change, eye pain ENT: Denies ear pain, sore throat, sinus pain Cardiovascular: Denies Chest pain, chest pressure, palpitations, extremity swelling Respiratory: Denies shortness of breath, cough, sputum production, difficulty breathing Gastrointestinal: Endorses intermittent constipation. Good appetite, abdominal discomfort improved as noted above Genitourinary: Denies pain with urination, urinary urgency, urinary frequency Musculoskeletal: Endorses stiff joints/hands/legs, moving much more easily with calcium repletion Integumentary:Denies rash, lesions, bruising Neurological: Denies headache, numbness, tingling, focal weakness Physical Exam Physical Exam: General: Frail, cachectic appearing male. Chronically ill, does not appear acutely toxic. Alert and oriented x3. HEENT: Atraumatic, normocephalic. Pupils equal and reactive to light. Extraocular movements intact without nystagmus. Visual acuity and hearing grossly intact. Pulm: Diminished,wheezes, -rales, -rhonchi. Symmetrical chest rise. No increase work of breathing. No respiratory distress. Cardiac: RRR, -mrg. Radial pulses intact and symmetrical. Abdominal: abdomen otherwise nontender nondistended, soft. BS present. Extremities: Thin. [employer] strength, ankle dorsiflexion/plantar flexion grossly intact and symmetrical and without tetany today Sensation to soft touch intact in hands and feet bilaterally without asymmetry. Results & Data Results & Data ([facility]) Vital Signs (Past 12 Hours) Vital Signs Temp Pulse Pulse Resp BP BP Pulse Ox 01/22/21 11:00 36.8 C 91 H 18 107/74 100 01/22/21 08:00 36.6 C 81 18 107/73 94 01/22/21 07:25 81 01/22/21 04:00 110 H 01/22/21 03:22 37 C 98 H 16 96/61 L 98 Pulse Ox 01/22/21 11:00 01/22/21 08:00 95 01/22/21 07:25 01/22/21 04:00 01/22/21 03:22 PG Care Time/CCT Total # of Minutes Spent Total Time Spent with Patient: Total time spent is greater than 50% in coordination of care (as documented) at patient's floor/unit and/or counseling patient: Coding Level of Care Code 21769 Subseq Hosp Care Lvl 2 Diagnoses Hypocalcemia E83.51 Severe protein-calorie malnutrition E43 Celiac disease K90.0 Supratherapeutic INR R79.1 GERD (gastroesophageal reflux disease) K21.9 Prolonged QT interval R94.31 Hypothyroid E03.9 Lactose intolerance E73.9 Mood disorder F39 PAF (paroxysmal atrial fibrillation) I48.0 Chronic deep vein thrombosis (DVT) I82.509 Transaminitis R74.01 Elevated alkaline phosphatase level R74.8 Anemia D64.9 Anemia type: unspecified type Hypokalemia E87.6 BPH (benign prostatic hyperplasia) N40.0 (1) Anemia Anemia type: unspecified type Qualified Code(s): D64.9 - Anemia, unspecified
[2021-01-22] MEDS: FOLIC ACID 1 MG TAB PO SCH (22:07)
[2021-01-22] MEDS: FERROUS SULFATE 325 MG TAB PO SCH (22:07)
[2021-01-22] MEDS: ENOXAPARIN INJ 30 MG/0.3 ML SYR SQ SCH (22:08)
[2021-01-22] MEDS: MIRTAZAPINE SOLTAB 15 MG PO SCH (22:08)
[2021-01-23] MEDS: LEVOTHYROXINE SODIUM 75 MCG TABLET PO SCH (06:10)
[2021-01-23 06:54] LABS: Basophils # (auto) 0.01 K/uL (0-0.2); Basophils % (auto) 0.1 %; Eosinophils # (auto) 0.03 K/uL (0-0.5); Eosinophils % (auto) 0.4 %; Hematocrit (blood only) 27.8 % (42-52); Hemoglobin 9.2 g/dL (14.0-18.0); Immature Granulocytes # (auto) 0.01 K/uL (0.00-0.02); Immature Granulocytes % (auto) 0.1 %; Lymphocytes # (auto) 1.15 K/uL (1.2-3.4); Lymphocytes % (auto) 15.6 %; Mean Corpuscular Hemoglobin 33.5 pg (25-34); Mean Corpuscular Hgb Conc 33.1 g/dL (32-36); Mean Corpuscular Volume 101.1 fL (80-100); Monocytes # (auto) 0.78 K/uL (0.11-0.59); Monocytes % (auto) 10.6 %; Neutrophils # (auto) 5.41 K/uL (1.4-6.5); Neutrophils % (auto) 73.2 %; Platelet Count 316 K/uL (130-400); RDW Coefficient of Variation 17.2 % (11.5-14.5); RDW Standard Deviation 60.3 fL (36.4-46.3); Red Blood Count 2.75 M/uL (4.7-6.1); White Blood Count 7.39 K/uL (4.8-10.8)
[2021-01-23 07:29] LABS: INR 1.2 (0.9-1.1); Prothrombin Time 11.9 Seconds (9.0-12.0)
[2021-01-23 07:47] LABS: Albumin Globulin Ratio 0.3 (0.9-2); Albumin Level 1.3 gm/dl (3.4-5.0); BUN Creatinine Ratio 23.3 (10-20); Bilirubin,Total 0.2 mg/dl (0.2-1); Calcium 5.9 mg/dl (8.5-10.1); Creatinine Clr Calc Pharmacy 102.2 ml/min; Est GFR (African American) 139.3 ml/min; Est GFR (Non-African American) 120.2 ml/min; Phosphorus 2.4 mg/dl (2.5-4.9); Potassium 3.4 mmol/L (3.5-5.1); Total Protein 5.3 gm/dl (6.4-8.2)
[2021-01-23] MEDS: FLUTICASONE FUROATE 200MCG 14 PUFFS/INHALER INH SCH (08:48)
[2021-01-23] MEDS: CHOLECALCIFEROL 1,000 UNITS 25 MCG TAB PO SCH (08:49)
[2021-01-23] MEDS: LACTASE 3000 UNIT TAB PO SCH ×3 (08:49→18:06)
[2021-01-23] MEDS: SPIRONOLACTONE 25 MG TAB PO SCH (08:49)
[2021-01-23] MEDS: THIAMINE HCL 100 MG TAB PO SCH ×2 (08:50→21:17)
[2021-01-23] MEDS: POT PHOSPHATE MONOBASIC W/ SOD TAB PO SCH ×4 (08:50→21:16)
[2021-01-23] MEDS: CALCIUM CARBONATE 1,250 MG/5 ML UDC PO SCH ×2 (08:50→21:15)
[2021-01-23] MEDS: CEROVITE ADV FORMULA TAB PO SCH (08:50)
[2021-01-23] MEDS: busPIRone 5 MG TAB PO SCH ×2 (08:51→21:17)
[2021-01-23] MEDS: MAGNESIUM OXIDE 400 MG TAB PO SCH ×2 (08:51→21:16)
[2021-01-23] MEDS ORDERED: CALCIUM GLUCONATE 10% 1,000 MG in SODIUM CHLORIDE 0.9% 50 ML IV ONE (10:00)
[2021-01-23] MEDS ORDERED: POTASSIUM CHLORIDE / WTR 10 MEQ/100 ML PLCT IV ONE (10:00)
[2021-01-23] MEDS: PANCREAZE (LIPASE 10,500U) CAP PO SCH ×3 (10:41→18:06)
[2021-01-23] MEDS: TAMSULOSIN HCL 0.4 MG CAP PO SCH ×2 (12:48→21:16)
[2021-01-23] MEDS: CALCITRIOL 0.25 MCG CAPSULE PO SCH ×2 (12:49→21:17)
--- NOTE | 2021-01-23 19:46 | Hospitalist Progress Note ---
Date of Service January 23, 2021 Assessment & Plan (1) Hypocalcemia: Plan: Presented with severe hypocalcemia leading to severe tetany. Multifactorial - severe hypoalbuminemia, hypokalemia, hypomagnesemia, vitamin D deficiency, etc. Continue calcitriol 2 mcg p.o. twice daily. Continue calcium carbonate 1250 mg twice daily. Corrected calcium level today still low (high 7's) - give additional calcium gluconate 1gm x 1. Overall slowly improving. (2) Severe protein-calorie malnutrition: Plan: 2nd to uncontrolled celiac disease. HE MUST comply with Celiac diet. He blames the intermediate system, but the intermediate has started he is noncompliant with the diet. Cannot exclude infectious diarrhea thus check cdiff and stool cx. Cannot rule out bacterial overgrowth syndrome. Cont MVI. Replete electrolytes. He could have element of refeeding syndrome. Supplement thiamine. Supplement zinc. (3) Celiac disease: Plan: Noncompliant with diet at intermediate. Also with prior history of lymphocytic colitis related to celiac disease- previously on steroids but not at this time. Check cdiff and stool cx. (4) Supratherapeutic INR: Plan: 2nd to vitamin K deficiency. improved/resolved s/p vitamin k supplementation. (5) GERD (gastroesophageal reflux disease): Plan: Continue famotidine 20 mg p.o. twice daily (6) Prolonged QT interval: Plan: 2nd to low K and low mag follow (7) Hypothyroid: Plan: TSH mildly elevated consider modest increase in synthroid (8) Lactose intolerance: Plan: - Lactose free diet - Lactaid PRN (9) Mood disorder: Plan: -continue buspar 5 mg bid and Remeron -Question if has OCD or an eating disorder -f/u with Psych at intermediate (10) PAF (paroxysmal atrial fibrillation): Plan: -30 minutes of atrial fibrillation during hospitalization several years ago -No need for anticoagulation or rate control -Monitoring on telemetry -sinus rhythm during this stay (11) Chronic deep vein thrombosis (DVT): Plan: Prior history of DVT, no longer on anticoagulation (12) Transaminitis: Plan: AST, ALT, alkaline phosphatase all elevated but improved from previous CT abdomen/pelvis from 08/2019 with normal-appearing liver -Bilirubin normal -Liver US normal here -hepatitis panel negative reactive ?? trend (13) Elevated alkaline phosphatase level: Plan: As above (14) Anemia: Plan: check Fe studies, b12, folate while here (15) Hypokalemia: Plan: cont to supplement (16) BPH (benign prostatic hyperplasia): Plan: Continue Flomax (17) Hypophosphatemia: Plan: cont PO replacement with daily phos level (18) Vitamin D deficiency: Plan: 25-OH vit D level = 11 this admission cont to replace Plan: does patient need SNF level of care post-d/c through the intermediate system?? he does not seem to have capacity/insight into his illnesses Admission and Anticipated Discharge Date Admission Date: January 15, 2021 Subjective pt reports ongoing diarrhea 3 times already today liquid no blood appetite fair at best - picking at food he blames the intermediate system for "giving him the wrong foods" some mild stomach upset 1 episode of emesis today no fevers Review of Systems Review of Systems: gen - weakness, fatigue, but no fevers/chills GI - no dysphagia or odynophagia cv - no cp pulm - no dyspnea Physical Exam Physical Exam: gen - severe cachexia, NAD skin - petechiae scattered on arms/legs mouth - MMM heart - RRR, s1 s2 lungs - CTA b/l abd - soft ND; slightly tender epigastric region; no HSM ext - thin, no edema neuro - no tetany Results & Data Results & Data ([facility]) Vital Signs (Past 12 Hours) Vital Signs Temp Pulse Pulse Resp BP Pulse Ox Pulse Ox 01/23/21 15:10 101 H 01/23/21 14:32 36.5 C 72 16 99/67 L 96 01/23/21 11:54 36.7 C 63 16 90/61 L 96 01/23/21 08:00 95 PG Care Time/CCT Total # of Minutes Spent Total Time Spent with Patient: Total time spent is greater than 50% in coordination of care (as documented) at patient's floor/unit and/or counseling patient: Coding Level of Care Code 80223 Subseq Hosp Care Lvl 3 Diagnoses Hypocalcemia E83.51 Severe protein-calorie malnutrition E43 Celiac disease K90.0 Supratherapeutic INR R79.1 GERD (gastroesophageal reflux disease) K21.9 Prolonged QT interval R94.31 Hypothyroid E03.9 Lactose intolerance E73.9 Mood disorder F39 PAF (paroxysmal atrial fibrillation) I48.0 Chronic deep vein thrombosis (DVT) I82.509 Transaminitis R74.01 Elevated alkaline phosphatase level R74.8 Anemia D64.9 Anemia type: unspecified type Hypokalemia E87.6 BPH (benign prostatic hyperplasia) N40.0 Hypophosphatemia E83.39 Vitamin D deficiency E55.9 (1) Anemia Anemia type: unspecified type Qualified Code(s): D64.9 - Anemia, unspecified
[2021-01-23] MEDS: FERROUS SULFATE 325 MG TAB PO SCH (21:16)
[2021-01-23] MEDS: MIRTAZAPINE SOLTAB 15 MG PO SCH (21:16)
[2021-01-23] MEDS: ENOXAPARIN INJ 30 MG/0.3 ML SYR SQ SCH (21:18)
[2021-01-23] MEDS: FOLIC ACID 1 MG TAB PO SCH (21:20)
[2021-01-24] MEDS: LEVOTHYROXINE SODIUM 75 MCG TABLET PO SCH (05:07)
[2021-01-24 07:08] LABS: Magnesium 1.3 mg/dl (1.8-2.4); Phosphorus 1.9 mg/dl (2.5-4.9)
[2021-01-24] MEDS: PANCREAZE (LIPASE 10,500U) CAP PO SCH ×3 (07:34→16:10)
[2021-01-24] MEDS: LACTASE 3000 UNIT TAB PO SCH ×3 (07:35→16:09)
[2021-01-24] MEDS: CEROVITE ADV FORMULA TAB PO SCH (07:36)
[2021-01-24] MEDS: SPIRONOLACTONE 25 MG TAB PO SCH (07:36)
[2021-01-24] MEDS: CHOLECALCIFEROL 1,000 UNITS 25 MCG TAB PO SCH (07:36)
[2021-01-24] MEDS: MAGNESIUM OXIDE 400 MG TAB PO SCH ×2 (07:37→20:24)
[2021-01-24] MEDS: THIAMINE HCL 100 MG TAB PO SCH ×2 (07:38→20:25)
[2021-01-24] MEDS: busPIRone 5 MG TAB PO SCH ×2 (07:38→20:25)
[2021-01-24] MEDS: TAMSULOSIN HCL 0.4 MG CAP PO SCH ×2 (07:39→20:26)
[2021-01-24] MEDS: POT PHOSPHATE MONOBASIC W/ SOD TAB PO SCH ×4 (07:39→20:25)
[2021-01-24] MEDS: CALCIUM CARBONATE 1,250 MG/5 ML UDC PO SCH ×2 (07:41→18:47)
[2021-01-24] MEDS: CALCITRIOL 0.25 MCG CAPSULE PO SCH ×2 (07:42→20:26)
[2021-01-24] MEDS: MAGNESIUM SULFATE / D5W 1 GM/100 ML BAG IV SCH ×2 (09:43→12:18)
[2021-01-24 10:48] LABS: BUN Creatinine Ratio 16.6 (10-20); Creatinine Clr Calc Pharmacy 106.9 ml/min; Est GFR (African American) 140.6 ml/min; Est GFR (Non-African American) 121.3 ml/min; Potassium 3.1 mmol/L (3.5-5.1)
[2021-01-24] MEDS: ZINC SULFATE 220 MG CAPSULE PO SCH (11:09)
[2021-01-24] MEDS: FLUTICASONE FUROATE 200MCG 14 PUFFS/INHALER INH SCH (11:10)
[2021-01-24] MEDS: POTASSIUM CHLORIDE / WTR 10 MEQ/100 ML PLCT IV SCH ×2 (12:47→13:52)
[2021-01-24] MEDS: POTASSIUM CHLORIDE PWD 20 MEQ PACK PO SCH ×2 (12:51→20:25)
[2021-01-24] MEDS: PANTOprazole 40 MG in SYRINGE 0 ML IV SCH ×2 (15:07→20:24)
[2021-01-24 16:07] LABS: Adenovirus F 40/41 PCR Not Detected (NotDetected); Astrovirus PCR Not Detected (NotDetected); Campylobacter PCR Not Detected (NotDetected); Clostridium diff Toxin A/B PCR Not Detected (NotDetected); Cryptosporidium PCR Not Detected (NotDetected); Cyclospora cayetanensis PCR Not Detected (NotDetected); Entamoeba histolytica PCR Not Detected (NotDetected); Enteroaggregative E.coli(EAEC) Not Detected (NotDetected); Enteropathogenic E.coli (EPEC) Not Detected (NotDetected); Enterotoxigenic E.coli (ETEC) Not Detected (NotDetected); Giardia lamblia PCR Not Detected (NotDetected); Norovirus GI/GII PCR Not Detected (NotDetected); Plesiomonas shigelloides PCR Not Detected (NotDetected); Rotavirus A PCR Not Detected (NotDetected); Salmonella PCR Not Detected (NotDetected); Sapovirus PCR Not Detected (NotDetected); Shiga-like Toxin E.coli (STEC) Not Detected (NotDetected); Shigella/Enteroinvasive E.coli Not Detected (NotDetected); Vibrio cholerae PCR Not Detected (NotDetected); Vibrio species PCR Not Detected (NotDetected); Yersinia enterocolitica PCR Not Detected (NotDetected)
--- NOTE | 2021-01-24 20:02 | Hospitalist Progress Note ---
Date of Service January 24, 2021 Assessment & Plan (1) Hypocalcemia: Plan: Presented with severe hypocalcemia leading to severe tetany. Multifactorial - severe hypoalbuminemia, hypokalemia, hypomagnesemia, vitamin D deficiency, etc. Continue calcitriol 2 mcg p.o. twice daily. Continue calcium carbonate 1250 mg twice daily. Corrected calcium level today about 8 - defer on any IV replacement. Overall slowly improving. (2) Severe protein-calorie malnutrition: Plan: 2nd to uncontrolled celiac disease. HE MUST comply with Celiac diet. He blames the senior living system, but the senior living has stated he is noncompliant with the diet. Cannot exclude infectious diarrhea thus checked stool studies today -- negative including c.diff. Cannot rule out bacterial overgrowth syndrome. Cont MVI. Replete electrolytes. He could have element of refeeding syndrome. Supplement thiamine. Supplement zinc. (3) Celiac disease: Plan: Noncompliant with diet at senior living. Also with prior history of lymphocytic colitis related to celiac disease- previously on steroids but not at this time. Stool studies negative today. Significant abd pain - due to enteropathy from celiac? gastritis? other? check lipase. may need CT abd/pelvis. may need Gi consultation again. PPI twice daily IV. (4) Supratherapeutic INR: Plan: 2nd to vitamin K deficiency. improved/resolved s/p vitamin k supplementation. (5) GERD (gastroesophageal reflux disease): Plan: Continue PPI IV (6) Prolonged QT interval: Plan: 2nd to low K and low mag improved (7) Hypothyroid: Plan: TSH mildly elevated consider modest increase in synthroid (8) Lactose intolerance: Plan: - Lactose free diet - Lactaid PRN (9) Mood disorder: Plan: -continue buspar 5 mg bid and Remeron -Question if has OCD or an eating disorder -f/u with Psych at senior living (10) PAF (paroxysmal atrial fibrillation): Plan: -30 minutes of atrial fibrillation during hospitalization several years ago -No need for anticoagulation or rate control -Monitoring on telemetry -sinus rhythm during this stay (11) Chronic deep vein thrombosis (DVT): Plan: Prior history of DVT, no longer on anticoagulation (12) Transaminitis: Plan: AST, ALT, alkaline phosphatase all elevated but improved from previous CT abdomen/pelvis from 08/2019 with normal-appearing liver -Bilirubin normal -Liver US normal here -hepatitis panel negative reactive ?? trend (13) Elevated alkaline phosphatase level: Plan: As above (14) Anemia: Plan: check Fe studies check b12/folate make his folate IV rather than PO to ensure absorption (15) Hypokalemia: Plan: cont to supplement improving (16) BPH (benign prostatic hyperplasia): Plan: Continue Flomax (17) Hypophosphatemia: Plan: cont PO replacement with daily phos level (18) Vitamin D deficiency: Plan: 25-OH vit D level = 11 this admission cont to replace Plan: does patient need SNF level of care post-d/c through the senior living system?? he does not seem to have capacity/insight into his illnesses Admission and Anticipated Discharge Date Admission Date: January 15, 2021 Subjective still with ongoing diarrhea - 4x's today alone liquid no blood any time he has solids he has upper abd pain - points to LUQ, and to a degree the epigastric region no vomiting but nausea continues continues to be very weak Review of Systems Review of Systems: gen - no fevers or chills pulm - no cough or congestion cv - no chest pain Physical Exam Physical Exam: gen - severe cachexia, NAD, very weak appearing skin - petechiae scattered on arms/legs, pallor mouth - MMM heart - RRR, s1 s2 lungs - CTA b/l abd - soft ND; tender epigastric and LUQ region; no HSM ext - thin, no edema neuro - no tetany Results & Data Results & Data ([facility]) Vital Signs (Past 12 Hours) Vital Signs Temp Pulse Pulse Resp BP Pulse Ox 01/24/21 19:13 36.1 C L 82 18 95/61 L 96 01/24/21 17:12 110 H 01/24/21 15:16 36.6 C 82 16 99/66 L 100 01/24/21 15:14 110 H 01/24/21 12:14 36.7 C 74 16 94/62 L 96 01/24/21 08:08 36.6 C 92 H 16 104/72 95 01/24/21 08:02 79 Laboratory Results total calcium 6 mag 1.3 phos 1.9 PG Care Time/CCT Total # of Minutes Spent Total Time Spent with Patient: Total time spent is greater than 50% in coordination of care (as documented) at patient's floor/unit and/or counseling patient: Coding Level of Care Code 95780 Subseq Hosp Care Lvl 3 Diagnoses Hypocalcemia E83.51 Severe protein-calorie malnutrition E43 Celiac disease K90.0 Supratherapeutic INR R79.1 GERD (gastroesophageal reflux disease) K21.9 Prolonged QT interval R94.31 Hypothyroid E03.9 Lactose intolerance E73.9 Mood disorder F39 PAF (paroxysmal atrial fibrillation) I48.0 Chronic deep vein thrombosis (DVT) I82.509 Transaminitis R74.01 Elevated alkaline phosphatase level R74.8 Anemia D64.9 Anemia type: unspecified type Hypokalemia E87.6 BPH (benign prostatic hyperplasia) N40.0 Hypophosphatemia E83.39 Vitamin D deficiency E55.9 (1) Anemia Anemia type: unspecified type Qualified Code(s): D64.9 - Anemia, unspecified
[2021-01-24] MEDS: FOLIC ACID 1 MG in SYRINGE 9.8 ML IV SCH (20:24)
[2021-01-24] MEDS: MIRTAZAPINE SOLTAB 15 MG PO SCH (20:25)
[2021-01-24] MEDS: ENOXAPARIN INJ 30 MG/0.3 ML SYR SQ SCH (20:26)
[2021-01-25] MEDS: LEVOTHYROXINE SODIUM 75 MCG TABLET PO SCH (06:44)
[2021-01-25 07:43] LABS: BUN Creatinine Ratio 12.6 (10-20); Calcium 6.2 mg/dl (8.5-10.1); Est GFR (African American) 138.1 ml/min; Est GFR (Non-African American) 119.1 ml/min; Magnesium 1.5 mg/dl (1.8-2.4); Potassium 3.5 mmol/L (3.5-5.1)
[2021-01-25 07:54] LABS: Phosphorus 2.5 mg/dl (2.5-4.9)
[2021-01-25] MEDS: LACTASE 3000 UNIT TAB PO SCH ×3 (08:11→18:36)
[2021-01-25] MEDS: PANCREAZE (LIPASE 10,500U) CAP PO SCH ×3 (08:11→18:36)
[2021-01-25] MEDS: CHOLECALCIFEROL 1,000 UNITS 25 MCG TAB PO SCH (08:12)
[2021-01-25] MEDS: ZINC SULFATE 220 MG CAPSULE PO SCH (08:12)
[2021-01-25] MEDS: CEROVITE ADV FORMULA TAB PO SCH (08:13)
[2021-01-25] MEDS: CALCIUM CARBONATE 1,250 MG/5 ML UDC PO SCH ×2 (08:13→18:37)
[2021-01-25] MEDS: POTASSIUM CHLORIDE PWD 20 MEQ PACK PO SCH ×2 (08:15→20:00)
[2021-01-25] MEDS: CALCITRIOL 0.25 MCG CAPSULE PO SCH ×2 (08:16→19:58)
[2021-01-25] MEDS: POT PHOSPHATE MONOBASIC W/ SOD TAB PO SCH ×4 (08:16→19:59)
[2021-01-25] MEDS: TAMSULOSIN HCL 0.4 MG CAP PO SCH ×2 (08:16→19:59)
[2021-01-25] MEDS: PANTOprazole 40 MG in SYRINGE 0 ML IV SCH ×2 (08:17→19:58)
[2021-01-25] MEDS: busPIRone 5 MG TAB PO SCH ×2 (08:25→19:58)
[2021-01-25] MEDS: THIAMINE HCL 100 MG TAB PO SCH ×2 (08:27→20:00)
[2021-01-25] MEDS: FLUTICASONE FUROATE 200MCG 14 PUFFS/INHALER INH SCH (09:06)
[2021-01-25] MEDS: MAGNESIUM SULFATE / D5W 1 GM/100 ML BAG IV SCH ×2 (10:48→12:50)
--- NOTE | 2021-01-25 12:20 | Hospitalist Progress Note ---
Date of Service January 25, 2021 Assessment & Plan (1) Hypocalcemia: Plan: Presented with severe hypocalcemia leading to severe tetany. Multifactorial - severe hypoalbuminemia, hypokalemia, hypomagnesemia, vitamin D deficiency, etc. Continue calcitriol 2 mcg p.o. twice daily. Continue calcium carbonate 1250 mg twice daily. Corrected calcium level today again about 8 - defer on any IV replacement. Overall slowly improving. BMP in am. (2) Severe protein-calorie malnutrition: Plan: 2nd to uncontrolled celiac disease. HE MUST comply with Celiac diet. He blames the nursing home system, but the nursing home has stated he is noncompliant with the diet. Cannot exclude infectious diarrhea thus checked stool studies -- negative including c.diff. Cannot rule out bacterial overgrowth syndrome. Records indicate a past h/o microscopic colitis in 2018 requiring steroids - that could have returned as well. Cont MVI. Replete electrolytes. He could have element of refeeding syndrome. Supplement thiamine. Supplement zinc. (3) Celiac disease: Plan: Noncompliant with diet at nursing home. Also with prior history of lymphocytic colitis related to celiac disease- previously on steroids but not at this time. Stool studies negative for infection. Yesterday complained of abdominal pain with eating - now resolved s/p downgrade in diet to clear liquids. checked lipase - negative. may need CT abd/pelvis but hold off for now since pain is resolved. consider imaging if pain recurs. may need Gi consultation - has seen [facility] in the past. cont PPI twice daily IV. (4) Supratherapeutic INR: Plan: 2nd to vitamin K deficiency. resolved s/p vitamin k supplementation. recheck INR In am for stability. (5) GERD (gastroesophageal reflux disease): Plan: Continue PPI IV given GI intolerance (6) Prolonged QT interval: Plan: 2nd to low K and low mag improved (7) Hypothyroid: Plan: TSH mildly elevated consider modest increase in synthroid (8) Lactose intolerance: Plan: - Lactose free diet - Lactaid PRN (9) Mood disorder: Plan: continue buspar 5 mg bid and Remeron f/u with Psych at nursing home (10) PAF (paroxysmal atrial fibrillation): Plan: -30 minutes of atrial fibrillation during hospitalization several years ago -No need for anticoagulation or rate control -Monitoring on telemetry -sinus rhythm during this stay (11) Chronic deep vein thrombosis (DVT): Plan: Prior history of DVT, no longer on anticoagulation (12) Transaminitis: Plan: AST, ALT, alkaline phosphatase all elevated at time of admission but improved fr om previous 01/23/21 LFTs showed normalized ast (and alt normalized earlier in his stay) CT abdomen/pelvis from 08/2019 with normal-appearing liver liver US this admission normal hepatitis panel negative etiology - reactive? other? (13) Elevated alkaline phosphatase level: Plan: 2nd vitamin D deficiency can't rule out osteomalacia other culprits possible follow (14) Anemia: Plan: check Fe studies in am check b12/folate make his folate IV rather than PO to ensure absorption (15) Hypokalemia: Plan: improved s/p copious supplementation may have had refeeding syndrome making replacement difficult K levels have stabilized repeat BMP and mag in am (16) BPH (benign prostatic hyperplasia): Plan: Continue Flomax (17) Hypophosphatemia: Plan: cont PO replacement (18) Vitamin D deficiency: Plan: 25-OH vit D level = 11 this admission cont to replace Plan: does patient need SNF level of care post-d/c through the nursing home system?? he does not seem to have capacity/insight into his illnesses Admission and Anticipated Discharge Date Admission Date: January 15, 2021 Subjective diarrhea unchanged no further abdominal pain - tolerating clears requests diet upgrade no nausea or emesis denies blood per rectum denies any dyspnea or chest pain Review of Systems Review of Systems: gen - no fevers, chills CV - no orthopnea GI - no abd pain today; no hematemesis or rectal bleeding pulm - no cough or dyspnea musculo - walks to bathroom without pain neuro - steady gait per the guards Physical Exam Physical Exam: gen - severe cachexia, NAD, very weak appearing skin - petechiae scattered on arms/legs, pallor, faint erythematous rash on back mouth - MMM; no lesions; no thrush heart - RRR, s1 s2, no murmur lungs - CTA b/l abd - soft, minimal distension, no tenderness today; no HSM ext - thin, no edema, severe muscle wasting of legs/arms neuro - no tetany Results & Data Results & Data ([facility]) Vital Signs (Past 12 Hours) Vital Signs Temp Pulse Pulse Resp BP Pulse Ox 01/25/21 11:35 36.4 C L 90 20 93/60 L 96 01/25/21 10:09 95 H 01/25/21 08:11 36.7 C 94 H 18 108/76 95 01/25/21 04:00 35.9 C L 76 18 80/58 L 96 01/25/21 01:38 90 Laboratory Results Laboratory Results - last 24 hr 01/24/21 01/24/21 01/24/21 14:20 14:45 14:45 Sodium Potassium Chloride Carbon Dioxide Anion Gap BUN Creatinine Est Cr Clr Drug Dosing Est GFR ( Amer) Est GFR (Non-Af Amer) BUN/Creatinine Ratio Glucose Calcium Phosphorus Magnesium Lipase 306 Cortisol AM Sample Stl C. cayetanensis PCR Not Detected Stool Rotavirus A PCR Not Detected Stl Adenov F 40/ PCR Not Detected Stool Astrovirus (PCR) Not Detected Stool Campylobacter PCR Not Detected Stl C. diff Tox B Gene Cancelled Stl C. diff Tox A/B PCR Not Detected Stool Cryptosporidium PCR Not Detected Stl E.coli Shiga Tox PCR Not Detected Stl Enterotoxigenic E PCR Not Detected Stool EPEC (PCR) Not Detected Stool EAEC (PCR) Not Detected Stl E. histolytica PCR Not Detected Stool Giardia Lamblia PCR Not Detected Stool Salmonella PCR Not Detected Stool Sapovirus (PCR) Not Detected Stl P. shigelloides PCR Not Detected Stl Shigella/EIEC PCR Not Detected St Y.enterocolitica PCR Not Detected Stool Vibrio (PCR) Not Detected Stl Vibrio cholerae PCR Not Detected Stl Norovirus GI/GII PCR Not Detected 01/25/21 01/25/21 06:30 06:30 Sodium 141 Potassium 3.5 Chloride 110 H Carbon Dioxide 22 Anion Gap 9.0 BUN 6 L Creatinine 0.47 L Est Cr Clr Drug Dosing 92.0 Est GFR ( Amer) 138.1 Est GFR (Non-Af Amer) 119.1 BUN/Creatinine Ratio 12.6 Glucose 92 Calcium 6.2 L Phosphorus 2.5 Magnesium 1.5 L Lipase Cortisol AM Sample 18.40 Stl C. cayetanensis PCR Stool Rotavirus A PCR Stl Adenov F 40/41 PCR Stool Astrovirus (PCR) Stool Campylobacter PCR Stl C. diff Tox B Gene Stl C. diff Tox A/B PCR Stool Cryptosporidium PCR Stl E.coli Shiga Tox PCR Stl Enterotoxigenic E PCR Stool EPEC (PCR) Stool EAEC (PCR) Stl E. histolytica PCR Stool Giardia Lamblia PCR Stool Salmonella PCR Stool Sapovirus (PCR) Stl P. shigelloides PCR Stl Shigella/EIEC PCR St Y.enterocolitica PCR Stool Vibrio (PCR) Stl Vibrio cholerae PCR Stl Norovirus GI/GII PCR PG Care Time/CCT Total # of Minutes Spent Total Time Spent with Patient: Total time spent is greater than 50% in coordination of care (as documented) at patient's floor/unit and/or counseling patient: Coding Level of Care Code 96293 Subseq Hosp Care Lvl 2 Diagnoses Hypocalcemia E83.51 Severe protein-calorie malnutrition E43 Celiac disease K90.0 Supratherapeutic INR R79.1 GERD (gastroesophageal reflux disease) K21.9 Prolonged QT interval R94.31 Hypothyroid E03.9 Lactose intolerance E73.9 Mood disorder F39 PAF (paroxysmal atrial fibrillation) I48.0 Chronic deep vein thrombosis (DVT) I82.509 Transaminitis R74.01 Elevated alkaline phosphatase level R74.8 Anemia D64.9 Anemia type: unspecified type Hypokalemia E87.6 BPH (benign prostatic hyperplasia) N40.0 Hypophosphatemia E83.39 Vitamin D deficiency E55.9 (1) Anemia Anemia type: unspecified type Qualified Code(s): D64.9 - Anemia, unspecified
[2021-01-25] MEDS: ENOXAPARIN INJ 30 MG/0.3 ML SYR SQ SCH (20:00)
[2021-01-25] MEDS: MIRTAZAPINE SOLTAB 15 MG PO SCH (20:00)
[2021-01-25] MEDS: FOLIC ACID 1 MG in SYRINGE 9.8 ML IV SCH (20:02)
[2021-01-26] MEDS: LEVOTHYROXINE SODIUM 75 MCG TABLET PO SCH (06:24)
[2021-01-26 07:48] LABS: Hematocrit (blood only) 28.3 % (42-52); Hemoglobin 9.5 g/dL (14.0-18.0); Mean Corpuscular Hemoglobin 34.2 pg (25-34); Mean Corpuscular Hgb Conc 33.6 g/dL (32-36); Mean Corpuscular Volume 101.8 fL (80-100); Mean Platelet Volume 10.3 fL (7.4-10.4); Platelet Count 316 K/uL (130-400); RDW Coefficient of Variation 16.6 % (11.5-14.5); RDW Standard Deviation 58.2 fL (36.4-46.3); Red Blood Count 2.78 M/uL (4.7-6.1); White Blood Count 5.03 K/uL (4.8-10.8)
[2021-01-26 07:59] LABS: INR 1.2 (0.9-1.1); Prothrombin Time 12.3 Seconds (9.0-12.0)
[2021-01-26 08:23] LABS: Calcium 6.3 mg/dl (8.5-10.1); Creatinine Clr Calc Pharmacy 88.2 ml/min; Est GFR (African American) 133.5 ml/min; Est GFR (Non-African American) 115.2 ml/min; Magnesium 1.6 mg/dl (1.8-2.4); Potassium 3.5 mmol/L (3.5-5.1)
[2021-01-26 08:28] LABS: Ferritin 162.2 ng/ml (8-388)
[2021-01-26] MEDS: THIAMINE HCL 100 MG TAB PO SCH ×2 (09:32→20:44)
[2021-01-26] MEDS: PANTOprazole 40 MG in SYRINGE 0 ML IV SCH ×2 (09:32→21:06)
[2021-01-26] MEDS: ZINC SULFATE 220 MG CAPSULE PO SCH (09:33)
[2021-01-26] MEDS: PANCREAZE (LIPASE 10,500U) CAP PO SCH ×3 (09:33→17:38)
[2021-01-26] MEDS: TAMSULOSIN HCL 0.4 MG CAP PO SCH ×2 (09:33→20:44)
[2021-01-26] MEDS: busPIRone 5 MG TAB PO SCH ×2 (09:34→20:43)
[2021-01-26] MEDS: CALCITRIOL 0.25 MCG CAPSULE PO SCH ×2 (09:34→20:43)
[2021-01-26] MEDS: CHOLECALCIFEROL 1,000 UNITS 25 MCG TAB PO SCH (09:34)
[2021-01-26] MEDS: CALCIUM CARBONATE 1,250 MG/5 ML UDC PO SCH ×2 (09:35→20:43)
[2021-01-26] MEDS: LACTASE 3000 UNIT TAB PO SCH ×3 (09:36→16:37)
[2021-01-26] MEDS: POT PHOSPHATE MONOBASIC W/ SOD TAB PO SCH ×4 (09:36→20:44)
[2021-01-26] MEDS: FLUTICASONE FUROATE 200MCG 14 PUFFS/INHALER INH SCH (09:36)
[2021-01-26] MEDS: CEROVITE ADV FORMULA TAB PO SCH (09:38)
[2021-01-26] MEDS: POTASSIUM CHLORIDE PWD 20 MEQ PACK PO SCH ×2 (09:38→20:44)
[2021-01-26] MEDS: MAGNESIUM SULFATE / D5W 1 GM/100 ML BAG IV SCH ×2 (11:38→13:40)
[2021-01-26] MEDS ORDERED: LOPERAMIDE HCL 2 MG CAP PO STA (15:00)
[2021-01-26] MEDS ORDERED: COLESTIPOL HCL 1 GM TAB PO ONE (15:30)
[2021-01-26] MEDS ORDERED: OPTIRAY 320 100ml IV ONE (18:49)
--- NOTE | 2021-01-26 19:15 | CT Scan Report ---
ABDOMEN AND PELVIS CT WITH IV AND ORAL CONTRAST CT DOSE: 252.01 mGy.cm HISTORY: severe celiac disease; diarrhea. eval other path TECHNIQUE: Multiaxial CT images of the abdomen and pelvis were performed following the use of intrave nous and oral contrast. A dose lowering technique was utilized adhering to the principles of ALARA. COMPARISON STUDY: Abdomen and pelvis CT 09/22/2019. FINDINGS: Small left pleural effusion. Focal consolidation within the left lower lobe posteriorly is nonspecific but favors atelectasis. There is a filling defect seen within a subsegmental branch of th e right lower lobe pulmonary artery consistent with a pulmonary embolus. This is best seen on image 2 5. The bones are osteopenic. No suspicious lytic or blastic osseous lesions. Thickened and edematous distal esophagus and the majority the stomach. Diffuse body wall edema. Small to moderate bilateral h ydroceles are noted. Normal caliber abdominal aorta. No retroperitoneal lymphadenopathy. The bladder is decompressed and not well visualized. There is a small amount of ascites. There are few left caroline l veins which appear thrombosed. There is also a small amount of gas within the left portal veins. Th is is best seen on image 69. Subtle heterogeneous enhancement within the left hepatic lobe at the are as of the portal vein thrombosis. The main portal vein and superior mesenteric vein are patent. No de finite pneumoperitoneum or pneumatosis identified. The pancreas, adrenal glands, left kidney are unre markable. There is a punctate stone within the right kidney. No hydronephrosis. The gallbladder is de compressed but appears within normal limits. Suboptimal evaluation for bowel pathology due to the lac k of intraperitoneal fat. Gas and fluid-filled colon which remains distended. There are multiple mild ly dilated fluid-filled loops of small bowel seen throughout the abdomen. No definite transition poin t to suggest a bowel obstruction. Therefore, this favors a diarrheal illness/gastroenteritis or ileus . IMPRESSION: 1. Thrombus involving some of the left portal veins. There is also portal venous gas adjacent to thes e areas of thrombus within the left hepatic lobe which demonstrates heterogeneous enhancement. This c ould be seen in the setting of an emphysematous hepatitis or possibly related to portal venous gas in the setting of ischemic bowel. However, there is no definite pneumoperitoneum or pneumatosis identif ied. 2. Thickened and edematous distal esophagus and stomach suggesting a nonspecific gastritis. 3. Multiple distended and fluid-filled loops of large and small bowel seen throughout the abdomen. No clear transition point to suggest an obstruction. Therefore, this favors a diarrheal illness/gastrit is or ileus. 4. Small left pleural effusion. 5. Right lower lobe subsegmental pulmonary embolus. 6. These findings were discussed with Dr. Mishra at 7:23 PM on 01/26/2021. ACT 112: Negative or not required by law. Electronically signed by: Hasmukh Navarro M.D. 01/26/2021 7:23 PM
--- NOTE | 2021-01-26 19:43 | Hospitalist Progress Note ---
Date of Service January 26, 2021 Assessment & Plan (1) Abnormal CT of the abdomen: Plan: portal venous gas on CT today. etiology uncertain. no free air; no pneumatosis. ischemia? infectious? other? gen surg consulted this evening - nothing surgical at this time. GI to see in am as well. NPO overnight. IVF. (2) PVT (portal vein thrombosis): Plan: as seen on CT today he had had LUQ abd pain over the weekend - perhaps his pain then was from PVT? either way - given this plus PE - needs anticoagulation. start standard heparin drip. will need lifelong anticoagulation - he has had VTE in the past. cause of PVT? low flow state? no known cirrhosis. (3) Hypocalcemia: Plan: Presented with severe hypocalcemia leading to severe tetany. Multifactorial - severe hypoalbuminemia, hypokalemia, hypomagnesemia, vitamin D deficiency, etc. Continue calcitriol 2 mcg p.o. twice daily. Continue calcium carbonate 1250 mg twice daily. Corrected calcium level today 8.1 - defer on any IV replacement. Overall slowly improving. BMP in am. (4) Severe protein-calorie malnutrition: Plan: 2nd to uncontrolled celiac disease. HE MUST comply with Celiac diet. He blames the care home system, but the care home has stated he is noncompliant with the diet. Cannot exclude infectious diarrhea thus checked stool studies -- negative including c.diff. Cannot rule out bacterial overgrowth syndrome. Records indicate a past h/o microscopic colitis in 2018 requiring steroids - th at could have returned as well. Cont MVI. Replete electrolytes. Suspect refeeding syndrome. Supplement thiamine. Supplement zinc. (5) Celiac disease: Plan: Noncompliant with diet at care home. Also with prior history of lymphocytic colitis related to celiac disease- previously on steroids but not at this time. Stool studies negative for infection. Complained of abdominal pain over the weekend with eating - now resolved. Was this from gastritis? PVT? other? checked lipase - negative. cont PPI twice daily IV. consider carafate for esophagitis seen on CT. I spoke with [facility] who will consult in am. (6) Supratherapeutic INR: Plan: 2nd to vitamin K deficiency. resolved s/p vitamin k supplementation at admissioni. INR normal today. (7) GERD (gastroesophageal reflux disease): Plan: Continue PPI IV CT today with evidence of esophagitis and gastritis (8) Prolonged QT interval: Plan: 2nd to low K and low mag improved (9) Hypothyroid: Plan: TSH mildly elevated consider modest increase in synthroid (10) Lactose intolerance: Plan: switching to soy products as advised by nutrition (11) Mood disorder: Plan: continue buspar 5 mg bid and Remeron f/u with Psych at care home (12) PAF (paroxysmal atrial fibrillation): Plan: -30 minutes of atrial fibrillation during hospitalization several years ago -No need for anticoagulation or rate control -Monitoring on telemetry -sinus rhythm during this stay (13) Chronic deep vein thrombosis (DVT): Plan: Prior history of DVT see "PVT" above (14) Transaminitis: Plan: CT abd/pelvis today with abnormal appearing left lobe of the liver PVT etc GI consulting in am (15) Elevated alkaline phosphatase level: Plan: 2nd vitamin D deficiency can't rule out osteomalacia other culprits possible follow (16) Anemia: Plan: surprisingly her Fe studies are normal check b12/folate in am cont IV folate (17) Hypokalemia: Plan: improved s/p copious supplementation may have had refeeding syndrome making replacement difficult K levels have stabilized repeat BMP and mag in am replace low mag again today (18) BPH (benign prostatic hyperplasia): Plan: Continue Flomax (19) Hypophosphatemia: Plan: cont PO replacement (20) Vitamin D deficiency: Plan: 25-OH vit D level = 11 this admission cont to replace (21) Pulmonary embolus: Plan: as seen on CT today start heparin drip - adult/standard protocol, no bolus lifelong anticoagulation will be needed due to prior VTE (22) Refeeding syndrome: (23) Lymphocytic colitis: Plan: history of 2018 - confirmed with colonoscopy biopsies at that time took steroids for some period of time (24) Failure to thrive: Plan: does patient need SNF level of care post-d/c through the care home system?? he does not seem to have capacity/insight into his illnesses total time today 75 minutes - complex care coordination including phone calls to GI, gen surg, and radiology; initiation of heparin for PVT/PE; etc Admission and Anticipated Discharge Date Admission Date: January 15, 2021 Subjective pt tolerating his diet ate breakfast this am without abd pain, N/V still with diarrhea - 3 episodes since late last night no new complaints states he isn't tolerating lactofree - switching to soy milk Review of Systems Review of Systems: gen - no fevers CV - no orthopnea pulm - no cough or dyspnea GI - no blood per rectum Physical Exam Physical Exam: gen - severe cachexia, NAD, disheveled, very weak appearing skin - pallor, faint erythematous rash on back; pressure sore L scapular region mouth - MMM; no lesions; no thrush heart - RRR, s1 s2, no murmur lungs - CTA b/l abd - soft, minimal distension, again no tenderness today; no HSM; BS+ ext - thin, no edema, severe muscle wasting of legs/arms neuro - no tetany Results & Data Results & Data ([facility]) Vital Signs (Past 12 Hours) Vital Signs Temp Pulse Pulse Resp BP BP Pulse Ox 01/26/21 16:18 78 01/26/21 15:09 36.6 C 90 20 94/69 L 98 01/26/21 11:10 36.4 C L 78 18 93/60 L 97 Laboratory Results Laboratory Results - last 24 hr 01/26/21 01/26/21 01/26/21 07:31 07:31 07:31 WBC 5.03 RBC 2.78 L Hgb 9.5 L Hct 28.3 L MCV 101.8 H MCH 34.2 H MCHC 33.6 RDW Std Deviation 58.2 H RDW Coeff of Tevin 16.6 H Plt Count 316 MPV 10.3 PT 12.3 H INR 1.2 H Sodium 138 Potassium 3.5 Chloride 109 H Carbon Dioxide 22 Anion Gap 8.0 BUN 7 Creatinine 0.51 L Est Cr Clr Drug Dosing 88.2 Est GFR ( Amer) 133.5 Est GFR (Non-Af Amer) 115.2 BUN/Creatinine Ratio 14.0 Glucose 69 L Calcium 6.3 L Magnesium 1.6 L Iron 37 Transferrin 86 L Transferrin % Sat 31 Ferritin 162.2 Diagnostic Findings Abdomen/Pelvis CT 01/26/21 15:[address] WITH IV AND ORAL CONTRAST CT DOSE: 252.01 mGy.cm HISTORY: severe celiac disease; diarrhea. eval other path TECHNIQUE: Multiaxial CT images of the abdomen and pelvis were performed following the use of intravenous and oral contrast. A dose lowering technique was utilized adhering to the principles of ALARA. COMPARISON STUDY: Abdomen and pelvis CT 09/22/2019. FINDINGS: Small left pleural effusion. Focal consolidation within the left lower lobe posteriorly is nonspecific but favors atelectasis. There is a filling defect seen within a subsegmental branch of the right lower lobe pulmonary artery consistent with a pulmonary embolus. This is best seen on image 25. The bones are osteopenic. No suspicious lytic or blastic osseous lesions. Thickened and edematous distal esophagus and the majority the stomach. Diffuse body wall edema. Small to moderate bilateral hydroceles are noted. Normal caliber abdominal aorta. No retroperitoneal lymphadenopathy. The bladder is decompressed and not well visualized. There is a small amount of ascites. There are few left portal veins which appear thrombosed. There is also a small amount of gas within the left portal veins. This is best seen on image 69. Subtle heterogeneous enhancement within the left hepatic lobe at the areas of the portal vein thrombosis. The main portal vein and superior mesenteric vein are patent. No definite pneumoperitoneum or pneumatosis identified. The pancreas, adrenal glands, left kidney are unremarkable. There is a punctate stone within the right kidney. No hydronephrosis. The gallbladder is decompressed but appears within normal limits. Suboptimal evaluation for bowel pathology due to the lack of intraperitoneal fat. Gas and fluid-filled colon which remains distended. There are multiple mildly dilated fluid-filled loops of small bowel seen throughout the abdomen. No definite transition point to suggest a bowel obstruction. Therefore, this favors a diarrheal illness/gastroenteritis or ileus. IMPRESSION: 1. Thrombus involving some of the left portal veins. There is also portal venous gas adjacent to these areas of thrombus within the left hepatic lobe which demonstrates heterogeneous enhancement. This could be seen in the setting of an emphysematous hepatitis or possibly related to portal venous gas in the setting of ischemic bowel. However, there is no definite pneumoperitoneum or pneumatosis identified. 2. Thickened and edematous distal esophagus and stomach suggesting a nonspecific gastritis. 3. Multiple distended and fluid-filled loops of large and small bowel seen throughout the abdomen. No clear transition point to suggest an obstruction. Therefore, this favors a diarrheal illness/gastritis or ileus. 4. Small left pleural effusion. 5. Right lower lobe subsegmental pulmonary embolus. 6. These findings were discussed with Dr. Mishra at 7:23 PM on 01/26/2021. ACT 112: Negative or not required by law. Electronically signed by: Hasmukh Navarro M.D. 01/26/2021 7:23 PM PG Care Time/CCT Total # of Minutes Spent Total Time Spent with Patient: Total time spent is greater than 50% in coordination of care (as documented) at patient's floor/unit and/or counseling patient: Prolonged Care Time Prolonged Care Time: Yes 75 Coding Level of Care Code 93536 Subseq Hosp Care Lvl 3 (25 - SIGNIFICANT, SEPARATELY IDENTIFIABLE ) Diagnoses Hypocalcemia E83.51 Severe protein-calorie malnutrition E43 Celiac disease K90.0 Supratherapeutic INR R79.1 GERD (gastroesophageal reflux disease) K21.9 Prolonged QT interval R94.31 Hypothyroid E03.9 Lactose intolerance E73.9 Mood disorder F39 PAF (paroxysmal atrial fibrillation) I48.0 Chronic deep vein thrombosis (DVT) I82.509 Transaminitis R74.01 Elevated alkaline phosphatase level R74.8 Anemia D64.9 Anemia type: unspecified type Hypokalemia E87.6 BPH (benign prostatic hyperplasia) N40.0 Hypophosphatemia E83.39 Vitamin D deficiency E55.9 PVT (portal vein thrombosis) I81 Pulmonary embolus I26.99 Refeeding syndrome E87.8 Lymphocytic colitis K52.832 Failure to thrive R62.7 Failure to thrive age range: in adult Abnormal CT of the abdomen R93.5 Additional Codes Prolonged Care Time - Prolonged Care Time: Yes ([id number]) Time Spent (min) 75 (1) Anemia Anemia type: unspecified type Qualified Code(s): D64.9 - Anemia, unspecified (2) Failure to thrive Failure to thrive age range: in adult Qualified Code(s): R62.7 - Adult failure to thrive
[2021-01-26] MEDS ORDERED: Heparin IV Adult Wt-Based Standard *NO* Bolus Protocol IV ONE (19:53)
[2021-01-26] MEDS: MIRTAZAPINE SOLTAB 15 MG PO SCH (20:44)
[2021-01-26] MEDS: HEPARIN SODIUM/DEXTROSE 25,000 UNITS/500 ML BAG IV SCH (21:05)
[2021-01-26 21:06] LABS: Partial Thromboplastin Ratio 1.2; Partial Thromboplastin Time 30.6 Seconds (21.0-31.0)
[2021-01-26] MEDS: FOLIC ACID 1 MG in SYRINGE 9.8 ML IV SCH (21:06)
--- NOTE | 2021-01-26 21:12 | Surgery Consultation ---
Date of Consultation January 26, 2021 Assessment & Plan (1) Severe protein-calorie malnutrition: The cause of portal venous gas noted on CT scan is unclear. Sometimes this can be seen in the setting of an infectious process. As the patient does not have an acute abdomen at this time nor is he complaining of any abdominal pain there is no need for surgical intervention. Would recommend following serial abdominal exams. Remainder of plan as directed by the hospitalist service History of Present Illness Reason for Consultation: Portal venous gas Attending Physician: Leo Sun History of Present Illness This is a 60-year-old male who is a inmate at a correctional facility. He was admitted to [facility] on 01/15/2021. Patient was initially brought to the emergency department secondary to severe muscle spasm and tetany. Found to have severe protein calorie malnutrition and appeared cachectic. For this reason was felt he required inpatient evaluation for admission. Since admission the patient has been complaining of some nonspecific abdominal pain mostly in the upper abdomen. At the time of my interview the patient said he had no abdominal pain. He denies any nausea or vomiting. He denies any fevers, shakes, chills. He also denies any postprandial pain. Patient does report diarrhea. He denies any hematochezia or bright red blood per rectum. Patient notes that he has celiac disease and he has been unable to gain weight and he feels that this is in part due to the diet that he receives at the correctional facility. He did not report any other specific complaints. During this admission the patient has had labs and imaging which independent reviewed. He did undergo a liver ultrasound that showed no cholelithiasis or evidence of acute cholecystitis. The study was done on 01/17/2021. The patient also had a CT scan of his abdomen and pelvis on 01/26/2021. This showed some thrombus involving the left portal veins. He also had some portal venous gas adjacent to the areas of thrombus within the left hepatic lobe. There is no pneumoperitoneum or pneumatosis noted. There are multiple distended and fluid- filled loops of large and small bowel however no evidence of small bowel obstruction was noted. Interpreting radiologist felt that this favored a diarrheal illness or gastritis. Most recent labs were from today which was 01/26/2021. On these labs white blood cell count was 5.0 his hemoglobin and hematocrit were 9.5 and 28.3. Platelet count was noted be within normal range. His INR is noted to be 1.2. Chemistry profile showed sodium, potassium, and BUN were all normal. His creatinine was actually low at 0.5. At the time of our interview the patient was resting comfortably in bed. He was in no distress and did not have any pain that he was reporting. Allergies Allergy/AdvReac Type Severity Reaction Status Date / Time Penicillins Allergy Unknown unknown Verified 01/15/21 02:04 gluten AdvReac Unknown GI SYMPTOMS Verified 01/15/21 03:31 lactose AdvReac Gastrointestinal Verified 01/15/21 02:04 Upset Home Medications Medication Instructions Recorded Confirmed Type acetaminophen 500 mg tablet 500 mg PO TID PRN 01/15/21 01/15/21 History (Tylenol Extra Strength) buspirone 5 mg tablet 5 mg PO BID 01/15/21 01/15/21 History calcitriol 0.5 mcg capsule 1 mcg PO BID 01/15/21 01/15/21 History calcium carbonate 200 mg calcium 0 mg PO TID PRN 01/15/21 01/15/21 History (500 mg) chewable tablet (Tums) cholecalciferol (vitamin D3) 25 125 mcg PO DAILY 01/15/21 01/15/21 History mcg (1,000 unit) tablet (Vitamin D3) ciclesonide 80 mcg/actuation 1 puff INHALATION BID 01/15/21 01/15/21 History aerosol inhaler (Alvesco) cyanocobalamin (vitamin B-12) 1,000 mcg SUBCUT MO 01/15/21 01/15/21 History 1,000 mcg/mL injection solution folic acid 1 mg tablet 1 mg PO HS 01/15/21 01/15/21 History lactase 3,000 unit tablet 3,000 unit PO .QID UD PRN 01/15/21 01/15/21 History levalbuterol tartrate 45 2 inh INHALATION QID PRN 01/15/21 01/15/21 History mcg/actuation aerosol inhaler (Xopenex HFA) levothyroxine 25 mcg tablet 37.5 mcg PO DAILY 01/15/21 01/15/21 History obesse-ndzdnwcu-pmuzwne 1 cap PO TIDM 01/15/21 01/15/21 History 24,000-76,000-120,000 unit capsule,delayed rel (Creon) magnesium oxide 800 mg PO BID 01/15/21 01/15/21 History methyl salicylate-menthol topical 1 ea TOPICAL .UD 01/15/21 01/15/21 History ointment mirtazapine 15 mg tablet 15 mg PO HS 01/15/21 01/15/21 History tamsulosin 0.4 mg capsule 0.4 mg PO HS 01/15/21 01/15/21 History Patient History Medical History Anemia B12 deficiency BPH (benign prostatic hyperplasia) Celiac disease Chronic deep vein thrombosis (DVT) Coagulopathy Elevated INR GERD (gastroesophageal reflux disease) Hypoglycemia Hypothyroid Inguinal hernia Metabolic acidosis Prolonged Q-T interval on ECG SBO (small bowel obstruction) Vitamin K deficiency Surgical History H/O splenectomy Family History Other No pertinent family history Social History Smoking Status: Former smoker Second Hand Exposure: No; Hx Alcohol Use: Yes Alcohol type: beer Hx Substance Use: No Preferred Language: French Communication Ability: Effective Chauffeur Required: No Beliefs That Will Affect Care: None marital status: Current Living Situation: Other Current Living Situation Comment: [facility] Feels Safe at Home: Yes Assistive Devices: None Review of Systems Constitutional: + fatigue, + weakness and + weight loss; no fever and no chills Eyes: no diplopia Ear, Nose, Mouth, Throat: no ear pain and no dry mouth Respiratory: no cough and no dyspnea Cardiovascular: no chest pain Gastrointestinal: + abdominal pain and + diarrhea/loose stools; no nausea and no vomiting Genitourinary: no dysuria Musculoskeletal: no back pain Integumentary: no rash Neurologic: + generalized weakness; no localized weakness Physical Exam Constitutional: + ill appearing, + thin and + cachectic; no acute distress Eyes: Wears glasses ENMT: Ears: no hearing impairment Mouth: no oropharynx abnormality Neck: trachea midline Respiratory: normal respiratory effort; no respiratory distress and no labored breathing Cardiovascular: Rate/Rhythm: regular rate and regular rhythm Gastrointestinal (Abdomen): Soft with minimal distention. There is some tympany with percussion. There is no rebound tenderness or guarding. There is no pain with palpation. Musculoskeletal: No calf tenderness Skin: no rashes Neurologic: moves all extremities Psychiatric: A+Ox3, euthymic affect Results & Data ([facility]) Vital Signs (Past 12 Hours) Vital Signs Temp Pulse Pulse Resp BP BP Pulse Ox 01/26/21 16:18 78 01/26/21 15:09 36.6 C 90 20 94/69 L 98 01/26/21 11:10 36.4 C L 78 18 93/60 L 97 PG Care Time/CCT Total # of Minutes Spent Total Time Spent with Patient: Total time spent is greater than 50% in coordination of care (as documented) at patient's floor/unit and/or counseling patient: Coding Level of Care Code 87888 Inpt Consult Level 5 Diagnoses Severe protein-calorie malnutrition E43
[2021-01-26] MEDS: D5NSS + 20MEQ KCL 20 MEQ/1,000 ML BAG IV SCH (22:16)
[2021-01-27 03:14] LABS: Basophils # (auto) 0.02 K/uL (0-0.2); Basophils % (auto) 0.3 %; Eosinophils # (auto) 0.04 K/uL (0-0.5); Eosinophils % (auto) 0.7 %; Hematocrit (blood only) 28.5 % (42-52); Hemoglobin 9.4 g/dL (14.0-18.0); Immature Granulocytes # (auto) 0.02 K/uL (0.00-0.02); Immature Granulocytes % (auto) 0.3 %; Lymphocytes # (auto) 1.14 K/uL (1.2-3.4); Lymphocytes % (auto) 19.1 %; Mean Corpuscular Hemoglobin 33.3 pg (25-34); Mean Corpuscular Volume 101.1 fL (80-100); Mean Platelet Volume 11.2 fL (7.4-10.4); Monocytes # (auto) 0.39 K/uL (0.11-0.59); Monocytes % (auto) 6.5 %; Neutrophils # (auto) 4.36 K/uL (1.4-6.5); Neutrophils % (auto) 73.1 %; Platelet Count 217 K/uL (130-400); RDW Coefficient of Variation 16.1 % (11.5-14.5); RDW Standard Deviation 56.7 fL (36.4-46.3); Red Blood Count 2.82 M/uL (4.7-6.1); White Blood Count 5.97 K/uL (4.8-10.8)
[2021-01-27 03:43] LABS: Partial Thromboplastin Time 51.9 Seconds (21.0-31.0)
[2021-01-27] MEDS: LEVOTHYROXINE SODIUM 75 MCG TABLET PO SCH (06:14)
[2021-01-27] MEDS ORDERED: COLESTIPOL HCL 1 GM TAB PO SCH (09:00)
[2021-01-27] MEDS: PANTOprazole 40 MG in SYRINGE 0 ML IV SCH ×2 (09:00→21:02)
--- NOTE | 2021-01-27 09:15 | Gastrointestinal Consultation ---
Date of Consultation January 27, 2021 Assessment & Plan (1) Abnormal CT of the abdomen: 60 year old male w/ celiac, noncompliant, admitted w/severe nutritional depletion GI asked to evaluate for continued diarrhea, CT obtained yesterday however showed PVT and portal vein gas. Evaluated by general surgery who recommends following clinically as there was no need for acute surgical intervention Clear liquids today Can plan for EGD/Colonoscopy tomorrow Thank you for allowing us to participate in the care of this patient. Please call with any acute changes, questions or concerns. Please see addendum below with additional recommendation from my supervising physician. Supervising Physician Co-Signing Physician Notes I have seen and examined the patient with MISTY Holden whose note reflects our findings and plan. EGD and colonoscopy tomorrow. I suspect his symptoms are related to both uncontrolled celiac(non-compliant with diet) and likely recurrent microscopic colitis. Weight loss. History of Present Illness Reason for Consultation: diarrhea Requesting Physician: Corinne Attending Physician: Leo Sun History of Present Illness 60 year old male with history of celiac, NPH, microscopic colitis, PAF, GERD, others below admitted w/ elyte abnormalities - GI asked to evaluate for diarrhea, abnormal imaging. Pt was seen and evaluated, chart reviewed. Notes he had abd pain, upper abd last week but this has resolved. Presently feelin well. No abd pain. No nausea. No vomiting. Is very hungry. Denies dyspahgia. No BM today but notes he had loose stools yesterday. Denies black or bloody stools. CTAP: 1. Thrombus involving some of the left portal veins. There is also portal venous gas adjacent to these areas of thrombus within the left hepatic lobe which demonstrates heterogeneous enhancement. This could be seen in the setting of an emphysematous hepatitis or possibly related to portal venous gas in the setting of ischemic bowel. However, there is no definite pneumoperitoneum or pneumatosis identified. 2. Thickened and edematous distal esophagus and stomach suggesting a nonspecific gastritis. 3. Multiple distended and fluid-filled loops of large and small bowel seen throughout the abdomen. No clear transition point to suggest an obstruction. Therefore, this favors a diarrheal illness/gastritis or ileus. 4. Small left pleural effusion. 5. Right lower lobe subsegmental pulmonary embolus. 6. These findings were discussed with Dr. Mishra at 7:23 PM on 01/26/2021. Colonoscopy 2019: The examined portion of the ileum was normal. - Normal mucosa in the entire examined colon. Biopsied. - The distal rectum and anal verge are normal on retroflexion view. EGD 2019: Normal esophagus. - Small hiatal hernia. - Duodenal mucosal changes seen, diagnostic of celiac disease. Biopsied. Allergies Allergy/AdvReac Type Severity Reaction Status Date / Time Penicillins Allergy Unknown unknown Verified 01/15/21 02:04 gluten AdvReac Unknown GI SYMPTOMS Verified 01/15/21 03:31 lactose AdvReac Gastrointestinal Verified 01/15/21 02:04 Upset Home Medications Medication Instructions Recorded Confirmed Type acetaminophen 500 mg tablet 500 mg PO TID PRN 01/15/21 01/15/21 History (Tylenol Extra Strength) buspirone 5 mg tablet 5 mg PO BID 01/15/21 01/15/21 History calcitriol 0.5 mcg capsule 1 mcg PO BID 01/15/21 01/15/21 History calcium carbonate 200 mg calcium 0 mg PO TID PRN 01/15/21 01/15/21 History (500 mg) chewable tablet (Tums) cholecalciferol (vitamin D3) 25 125 mcg PO DAILY 01/15/21 01/15/21 History mcg (1,000 unit) tablet (Vitamin D3) ciclesonide 80 mcg/actuation 1 puff INHALATION BID 01/15/21 01/15/21 History aerosol inhaler (Alvesco) cyanocobalamin (vitamin B-12) 1,000 mcg SUBCUT MO 01/15/21 01/15/21 History 1,000 mcg/mL injection solution folic acid 1 mg tablet 1 mg PO HS 01/15/21 01/15/21 History lactase 3,000 unit tablet 3,000 unit PO .QID UD PRN 01/15/21 01/15/21 History levalbuterol tartrate 45 2 inh INHALATION QID PRN 01/15/21 01/15/21 History mcg/actuation aerosol inhaler (Xopenex HFA) levothyroxine 25 mcg tablet 37.5 mcg PO DAILY 01/15/21 01/15/21 History pzsfzh-alggtzln-oaowooh 1 cap PO TIDM 01/15/21 01/15/21 History 24,000-76,000-120,000 unit capsule,delayed rel (Creon) magnesium oxide 800 mg PO BID 01/15/21 01/15/21 History methyl salicylate-menthol topical 1 ea TOPICAL .UD 01/15/21 01/15/21 History ointment mirtazapine 15 mg tablet 15 mg PO HS 01/15/21 01/15/21 History tamsulosin 0.4 mg capsule 0.4 mg PO HS 01/15/21 01/15/21 History Patient History Medical History Anemia B12 deficiency BPH (benign prostatic hyperplasia) Celiac disease Chronic deep vein thrombosis (DVT) Coagulopathy Elevated INR GERD (gastroesophageal reflux disease) Hypoglycemia Hypothyroid Inguinal hernia Metabolic acidosis Prolonged Q-T interval on ECG SBO (small bowel obstruction) Vitamin K deficiency Surgical History H/O splenectomy Family History Other No pertinent family history Social History Smoking Status: Former smoker Second Hand Exposure: No; Hx Alcohol Use: Yes Alcohol type: beer Hx Substance Use: No Preferred Language: Latvian Communication Ability: Effective Instrumental Teacher Required: No Beliefs That Will Affect Care: None marital status: Current Living Situation: Other Current Living Situation Comment: [facility] Feels Safe at Home: Yes Assistive Devices: None Review of Systems Review of Systems: All systems reviewed & are unremarkable except as noted in HPI & below Physical Exam Constitutional: thin, cachectic, frail Neck: trachea midline, no thyromegaly Respiratory: normal respiratory effort; no respiratory distress and no labored breathing Gastrointestinal (Abdomen): normal bowel sounds, soft, nontender, no hepatosplenomegaly Skin: no rashes, warm and dry Results & Data ([facility]) Vital Signs (Past 12 Hours) Vital Signs Temp Pulse Pulse Resp BP Pulse Ox 01/27/21 07:36 75 01/27/21 07:31 36.3 C L 70 18 84/58 L 93 01/26/21 23:00 86 Laboratory Results 01/27/21 01/27/21 01/27/21 Range/Units 08:44 08:44 03:00 WBC 5.97 (4.8-10.8) K/uL RBC 2.82 L (4.7-6.1) M/uL Hgb 9.4 L (14.0-18.0) g/dL Hct 28.5 L (42-52) % MCV 101.1 H (80-100) fL MCH 33.3 (25-34) pg MCHC 33.0 (32-36) g/dL RDW Std Deviation 56.7 H (36.4-46.3) fL RDW Coeff of Tevin 16.1 H (11.5-14.5) % Plt Count 217 (130-400) K/uL MPV 11.2 H (7.4-10.4) fL Immature Gran % (Auto) 0.3 % Neut % (Auto) 73.1 % Lymph % (Auto) 19.1 % [place] % (Auto) 6.5 % Eos % (Auto) 0.7 % Baso % (Auto) 0.3 % Neut # (Auto) 4.36 (1.4-6.5) K/uL Lymph # (Auto) 1.14 L (1.2-3.4) K/uL [place] # (Auto) 0.39 (0.11-0.59) K/uL Eos # (Auto) 0.04 (0-0.5) K/uL Baso # (Auto) 0.02 (0-0.2) K/uL Immature Gran # (Auto) 0.02 (0.00-0.02) K/uL APTT (21.0-31.0) Seconds PTT Ratio Sodium Pending Potassium Pending Chloride Pending Carbon Dioxide Pending Anion Gap Pending BUN Pending Creatinine Pending Est Cr Clr Drug Dosing Pending Est GFR ( Amer) Pending Est GFR (Non-Af Amer) Pending BUN/Creatinine Ratio Pending Glucose Pending Lactate (0.4-2.0) mmol/L Calcium Pending Phosphorus Pending Magnesium Pending Vitamin B12 Pending Folate Pending 01/27/21 01/26/21 01/26/21 Range/Units 03:00 20:38 20:38 WBC (4.8-10.8) K/uL RBC (4.7-6.1) M/uL Hgb (14.0-18.0) g/dL Hct (42-52) % MCV (80-100) fL MCH (25-34) pg MCHC (32-36) g/dL RDW Std Deviation (36.4-46.3) fL RDW Coeff of Tevin (11.5-14.5) % Plt Count (130-400) K/uL MPV (7.4-10.4) fL Immature Gran % (Auto) % Neut % (Auto) % Lymph % (Auto) % [place] % (Auto) % Eos % (Auto) % Baso % (Auto) % Neut # (Auto) (1.4-6.5) K/uL Lymph # (Auto) (1.2-3.4) K/uL [place] # (Auto) (0.11-0.59) K/uL Eos # (Auto) (0-0.5) K/uL Baso # (Auto) (0-0.2) K/uL Immature Gran # (Auto) (0.00-0.02) K/uL APTT 51.9 H* 30.6 (21.0-31.0) Seconds PTT Ratio 2.0 1.2 Sodium Potassium Chloride Carbon Dioxide Anion Gap BUN Creatinine Est Cr Clr Drug Dosing Est GFR ( Amer) Est GFR (Non-Af Amer) BUN/Creatinine Ratio Glucose Lactate 1.0 (0.4-2.0) mmol/L Calcium Phosphorus Magnesium Vitamin B12 Folate
[2021-01-27] MEDS: busPIRone 5 MG TAB PO SCH ×2 (09:19→21:01)
[2021-01-27] MEDS: LACTASE 3000 UNIT TAB PO SCH ×3 (09:19→17:52)
[2021-01-27] MEDS: PANCREAZE (LIPASE 10,500U) CAP PO SCH ×3 (09:19→17:52)
[2021-01-27] MEDS: CALCIUM CARBONATE 1,250 MG/5 ML UDC PO SCH ×2 (09:19→20:12)
[2021-01-27] MEDS: POTASSIUM CHLORIDE PWD 20 MEQ PACK PO SCH ×2 (09:20→21:02)
[2021-01-27] MEDS: POT PHOSPHATE MONOBASIC W/ SOD TAB PO SCH ×4 (09:20→21:02)
[2021-01-27] MEDS: CEROVITE ADV FORMULA TAB PO SCH (09:20)
[2021-01-27] MEDS: CHOLECALCIFEROL 1,000 UNITS 25 MCG TAB PO SCH (09:20)
[2021-01-27] MEDS: TAMSULOSIN HCL 0.4 MG CAP PO SCH ×2 (09:20→21:02)
[2021-01-27] MEDS: ZINC SULFATE 220 MG CAPSULE PO SCH (09:20)
[2021-01-27] MEDS: FLUTICASONE FUROATE 200MCG 14 PUFFS/INHALER INH SCH (09:20)
[2021-01-27] MEDS: THIAMINE HCL 100 MG TAB PO SCH ×2 (09:20→21:02)
[2021-01-27] MEDS: CALCITRIOL 0.25 MCG CAPSULE PO SCH ×2 (09:20→21:01)
[2021-01-27 09:40] LABS: BUN Creatinine Ratio 22.6 (10-20); Calcium 6.7 mg/dl (8.5-10.1); Creatinine Clr Calc Pharmacy 97.7 ml/min; Est GFR (African American) 139.3 ml/min; Est GFR (Non-African American) 120.2 ml/min; Magnesium 1.6 mg/dl (1.8-2.4); Potassium 3.2 mmol/L (3.5-5.1)
[2021-01-27 09:43] LABS: Phosphorus 2.9 mg/dl (2.5-4.9)
[2021-01-27] MEDS ORDERED: LAVAGE SOLUTION 4000ML PO SCH (10:30)
[2021-01-27 10:58] LABS: Folate (Folic Acid) 11.5 ng/ml (>5.38)
[2021-01-27] MEDS: COLESTIPOL HCL 1 GM TAB PO SCH (11:01)
[2021-01-27] MEDS: POTASSIUM CHLORIDE / WTR 10 MEQ/100 ML PLCT IV SCH ×3 (14:24→18:05)
[2021-01-27] MEDS: D5NSS + 20MEQ KCL 20 MEQ/1,000 ML BAG IV SCH (15:00)
--- NOTE | 2021-01-27 20:40 | Hospitalist Progress Note ---
Date of Service January 27, 2021 Assessment & Plan (1) Abnormal CT of the abdomen: Plan: 01/26 CT a/p - portal venous gas seen but no free air; no pneumatosis. cause --- transient ischemia? infectious? other? gen surg consulted - nothing surgical at this time. GI consult appreciated. clear liquids today; NPO after MN for scopes tomorrow. cont IVF. (2) PVT (portal vein thrombosis): Plan: as seen on CT. he had had LUQ abd pain over last weekend - perhaps his pain then was from PVT? either way - given this plus PE - needs anticoagulation. cont standard heparin drip -- hold starting tomorrow am for EGD/colonoscopy. will need lifelong anticoagulation - he has had VTE in the past. cause of PVT? low flow state? no known cirrhosis. (3) Hypocalcemia: Plan: Presented with severe hypocalcemia leading to severe tetany. Multifactorial - severe hypoalbuminemia, hypokalemia, hypomagnesemia, vitamin D deficiency, etc. Continue calcitriol 2 mcg p.o. twice daily. Continue calcium carbonate 1250 mg twice daily. Corrected calcium level today 8.5. BMP in am. (4) Severe protein-calorie malnutrition: Plan: 2nd to uncontrolled celiac disease. HE MUST comply with Celiac diet. He blames the shelter system, but the shelter has stated he is noncompliant with the diet. Cannot exclude infectious diarrhea thus checked stool studies -- negative including c.diff. Cannot rule out bacterial overgrowth syndrome. Records indicate a past h/o microscopic colitis in 2018 requiring steroids - that could have returned as well. Cont MVI. Replete electrolytes. Suspect refeeding syndrome. Supplement thiamine. Supplement zinc. EGD/colonoscopy tomorrow by [facility]. (5) Celiac disease: Plan: Noncompliant with diet at shelter. Also with prior history of lymphocytic colitis related to celiac disease- previously on steroids but not at this time. Stool studies negative for infection. Complained of abdominal pain over the weekend with eating - now resolved. Was this from gastritis? PVT? other? checked lipase - negative. cont PPI twice daily IV. consider carafate for esophagitis seen on CT. [facility] to perform EGD in am. (6) Supratherapeutic INR: Plan: 2nd to vitamin K deficiency. resolved s/p vitamin k supplementation at admissioni. (7) GERD (gastroesophageal reflux disease): Plan: Continue PPI IV CT a/p 01/26/21 with evidence of esophagitis and gastritis EGD in am (8) Prolonged QT interval: Plan: 2nd to low K and low mag resolved (9) Hypothyroid: Plan: TSH mildly elevated consider modest increase in synthroid (10) Lactose intolerance: Plan: switching to soy products as advised by nutrition (11) Mood disorder: Plan: continue buspar 5 mg bid and Remeron f/u with Psych at shelter (12) PAF (paroxysmal atrial fibrillation): Plan: 30 minutes of atrial fibrillation during hospitalization several years ago no PAF during this stay (13) Chronic deep vein thrombosis (DVT): Plan: Prior history of DVT see "PVT" above (14) Transaminitis: Plan: CT abd/pelvis today with abnormal appearing left lobe of the liver (15) Elevated alkaline phosphatase level: Plan: 2nd vitamin D deficiency can't rule out osteomalacia other culprits possible follow (16) Anemia: Plan: surprisingly his B12, folate, and Fe studies are normal could have micronutrient def leading to anemia - zinc, etc alternatively - this simply could be anemia of chronic disease (17) Hypokalemia: Plan: ongoing 2nd diarrhea, poor oral intake and can't r/o refeeding syndrome replace K replace mag (18) BPH (benign prostatic hyperplasia): Plan: Continue Flomax (19) Hypophosphatemia: Plan: resolved s/p replacement (20) Vitamin D deficiency: Plan: 25-OH vit D level = 11 this admission cont to replace (21) Pulmonary embolus: Plan: as seen on CT 01/26/21 heparin drip lifelong anticoagulation will be needed due to prior VTE (had DVT in the past) (22) Refeeding syndrome: Plan: suspected cont electrolyte replacement (23) Lymphocytic colitis: Plan: history of 2018 - confirmed with colonoscopy biopsies at that time took steroids for some period of time colonoscopy in am tomorrow prep today (24) Failure to thrive: Plan: does patient need SNF level of care post-d/c through the shelter system?? he does not seem to have capacity/insight into his illnesses Admission and Anticipated Discharge Date Admission Date: January 15, 2021 Subjective events of last 24 hours noted seen by GI today - EGD/colonoscopy recommended - will perform tomorrow during rounds he denies abd pain he is prepping for his colonoscopy and tolerating such prior to prepping had 2 loose stools no vomiting tele overnight wnl Review of Systems Review of Systems: gen - no fever pulm - mild cough - no sputum cv - no chest pain GI - no blood per rectum Physical Exam Physical Exam: gen - severe cachexia, NAD, disheveled, very weak appearing, coughing skin - pallor, faint erythematous rash on back; pressure sore L scapular region - no changes mouth - MMM; no lesions; no thrush heart - RRR, s1 s2, no murmur lungs - CTA b/l, decreased BS bases abd - soft, NT, ND, BS+ ext - thin, no edema, severe muscle wasting of legs/arms Results & Data Results & Data ([place]) Vital Signs (Past 12 Hours) Vital Signs Temp Pulse Pulse Resp BP Pulse Ox 01/27/21 19:51 36.5 C 64 16 95/54 L 96 01/27/21 16:46 63 01/27/21 15:09 36.5 C 67 18 83/56 L 98 Laboratory Results Laboratory Results - last 24 hr 01/26/21 01/26/21 01/27/21 20:38 20:38 03:00 WBC RBC Hgb Hct MCV MCH MCHC RDW Std Deviation RDW Coeff of Tevin Plt Count MPV Immature Gran % (Auto) Neut % (Auto) Lymph % (Auto) [place] % (Auto) Eos % (Auto) Baso % (Auto) Neut # (Auto) Lymph # (Auto) [place] # (Auto) Eos # (Auto) Baso # (Auto) Immature Gran # (Auto) APTT 30.6 51.9 H* PTT Ratio 1.2 2.0 Sodium Potassium Chloride Carbon Dioxide Anion Gap BUN Creatinine Est Cr Clr Drug Dosing Est GFR ( Amer) Est GFR (Non-Af Amer) BUN/Creatinine Ratio Glucose Lactate 1.0 Calcium Phosphorus Magnesium Vitamin B12 Folate 01/27/21 01/27/21 01/27/21 03:00 08:44 08:44 WBC 5.97 RBC 2.82 L Hgb 9.4 L Hct 28.5 L MCV 101.1 H MCH 33.3 MCHC 33.0 RDW Std Deviation 56.7 H RDW Coeff of Tevin 16.1 H Plt Count 217 MPV 11.2 H Immature Gran % (Auto) 0.3 Neut % (Auto) 73.1 Lymph % (Auto) 19.1 [place] % (Auto) 6.5 Eos % (Auto) 0.7 Baso % (Auto) 0.3 Neut # (Auto) 4.36 Lymph # (Auto) 1.14 L [place] # (Auto) 0.39 Eos # (Auto) 0.04 Baso # (Auto) 0.02 Immature Gran # (Auto) 0.02 APTT PTT Ratio Sodium 138 Potassium 3.2 L Chloride 108 H Carbon Dioxide 24 Anion Gap 6.0 BUN 10 Creatinine 0.46 L Est Cr Clr Drug Dosing 97.7 Est GFR ( Amer) 139.3 Est GFR (Non-Af Amer) 120.2 BUN/Creatinine Ratio 22.6 H Glucose 71 Lactate Calcium 6.7 L Phosphorus 2.9 Magnesium 1.6 L Vitamin B12 903 Folate 11.50 PG Care Time/CCT Total # of Minutes Spent Total Time Spent with Patient: Total time spent is greater than 50% in coordination of care (as documented) at patient's floor/unit and/or counseling patient: Coding Level of Care Code 07523 Subseq Hosp Care Lvl [address] of the abdomen R93.5 PVT (portal vein thrombosis) I81 Hypocalcemia E83.51 Severe protein-calorie malnutrition E43 Celiac disease K90.0 Supratherapeutic INR R79.1 GERD (gastroesophageal reflux disease) K21.9 Prolonged QT interval R94.31 Hypothyroid E03.9 Lactose intolerance E73.9 Mood disorder F39 PAF (paroxysmal atrial fibrillation) I48.0 Chronic deep vein thrombosis (DVT) I82.509 Transaminitis R74.01 Elevated alkaline phosphatase level R74.8 Anemia D64.9 Anemia type: unspecified type Hypokalemia E87.6 BPH (benign prostatic hyperplasia) N40.0 Hypophosphatemia E83.39 Vitamin D deficiency E55.9 Pulmonary embolus I26.99 Refeeding syndrome E87.8 Lymphocytic colitis K52.832 Failure to thrive R62.7 Failure to thrive age range: in adult (1) Anemia Anemia type: unspecified type Qualified Code(s): D64.9 - Anemia, unspecified (2) Failure to thrive Failure to thrive age range: in adult Qualified Code(s): R62.7 - Adult failure to thrive
[2021-01-27] MEDS: FOLIC ACID 1 MG in SYRINGE 9.8 ML IV SCH (21:01)
[2021-01-27] MEDS: MIRTAZAPINE SOLTAB 15 MG PO SCH (21:02)
[2021-01-28] MEDS: LEVOTHYROXINE SODIUM 75 MCG TABLET PO SCH (05:47)
[2021-01-28 07:35] LABS: Partial Thromboplastin Ratio 1.6; Partial Thromboplastin Time 42.8 Seconds (21.0-31.0)
[2021-01-28 07:36] LABS: Nucleated RBC # (auto) 0.03 K/uL (0-0); Nucleated RBC % (auto) 0.7 %
[2021-01-28 07:38] LABS: Hematocrit (blood only) 27.1 % (42-52); Mean Corpuscular Hemoglobin 33.8 pg (25-34); Mean Corpuscular Hgb Conc 33.2 g/dL (32-36); Mean Corpuscular Volume 101.9 fL (80-100); Mean Platelet Volume 11.3 fL (7.4-10.4); Platelet Count 350 K/uL (130-400); RDW Coefficient of Variation 16.5 % (11.5-14.5); RDW Standard Deviation 58.9 fL (36.4-46.3); Red Blood Count 2.66 M/uL (4.7-6.1)
[2021-01-28 08:05] LABS: Basophils # (auto) 0.02 K/uL (0-0.2); Basophils % (auto) 0.5 %; Eosinophils # (auto) 0.06 K/uL (0-0.5); Eosinophils % (auto) 1.4 %; Howell-Jolly Bodies 1+; Lymphocytes # (auto) 1.25 K/uL (1.2-3.4); Lymphocytes % (auto) 29.8 %; Monocytes # (auto) 0.47 K/uL (0.11-0.59); Monocytes % (auto) 11.2 %; Neutrophils % (auto) 57.1 %; Target Cells 1+
[2021-01-28 08:24] LABS: BUN Creatinine Ratio 16.1 (10-20); Blood Urea Nitrogen 6 mg/dl (7-18); Calcium 6.8 mg/dl (8.5-10.1); Carbon Dioxide 22 mmol/L (21-32); Chloride 115 mmol/L (98-107); Creatinine Clr Calc Pharmacy 117.1 ml/min; Est GFR (African American) > 150.0 ml/min; Est GFR (Non-African American) 131.4 ml/min; Glucose 61 mg/dl (70-99); Magnesium 1.3 mg/dl (1.8-2.4); Potassium 3.7 mmol/L (3.5-5.1); Sodium 144 mmol/L (136-145)
--- NOTE | 2021-01-28 09:17 | History & Physical Report ---
Date of Service January 28, 2021 Assessment & Plan (1) Abnormal CT of the abdomen: (2) Pulmonary embolus: (3) PVT (portal vein thrombosis): (4) Severe protein-calorie malnutrition: (5) Anemia: Plan: EGD and colonoscopy today (6) Celiac disease: Admission and Anticipated Discharge Date Admission Date: January 15, 2021 History of Present Illness Chief Complaint: celiac weight loss anemia Primary Care Provider: SKYE Mckeon celiac weight loss anemia Allergies Allergy/AdvReac Type Severity Reaction Status Date / Time Penicillins Allergy Unknown unknown Verified 01/28/21 09:09 gluten AdvReac Unknown GI SYMPTOMS Verified 01/28/21 09:09 lactose AdvReac Gastrointestinal Verified 01/28/21 09:09 Upset Home Medications Medication Instructions Recorded Confirmed Type acetaminophen 500 mg tablet 500 mg PO TID PRN 01/15/21 01/15/21 History (Tylenol Extra Strength) buspirone 5 mg tablet 5 mg PO BID 01/15/21 01/15/21 History calcitriol 0.5 mcg capsule 1 mcg PO BID 01/15/21 01/15/21 History calcium carbonate 200 mg calcium 0 mg PO TID PRN 01/15/21 01/15/21 History (500 mg) chewable tablet (Tums) cholecalciferol (vitamin D3) 25 125 mcg PO DAILY 01/15/21 01/15/21 History mcg (1,000 unit) tablet (Vitamin D3) ciclesonide 80 mcg/actuation 1 puff INHALATION BID 01/15/21 01/15/21 History aerosol inhaler (Alvesco) cyanocobalamin (vitamin B-12) 1,000 mcg SUBCUT MO 01/15/21 01/15/21 History 1,000 mcg/mL injection solution folic acid 1 mg tablet 1 mg PO HS 01/15/21 01/15/21 History lactase 3,000 unit tablet 3,000 unit PO .QID UD PRN 01/15/21 01/15/21 History levalbuterol tartrate 45 2 inh INHALATION QID PRN 01/15/21 01/15/21 History mcg/actuation aerosol inhaler (Xopenex HFA) levothyroxine 25 mcg tablet 37.5 mcg PO DAILY 01/15/21 01/15/21 History [id number]-xyiszlnw-[id number] 1 cap PO TIDM 01/15/21 01/15/21 History 24,000-76,000-120,000 unit capsule,delayed rel (Creon) magnesium oxide 800 mg PO BID 01/15/21 01/15/21 History methyl salicylate-menthol topical 1 ea TOPICAL .UD 01/15/21 01/15/21 History ointment mirtazapine 15 mg tablet 15 mg PO HS 01/15/21 01/15/21 History tamsulosin 0.4 mg capsule 0.4 mg PO HS 01/15/21 01/15/21 History Past Med/Surg History Medical History Anemia B12 deficiency BPH (benign prostatic hyperplasia) Celiac disease Chronic deep vein thrombosis (DVT) Coagulopathy Elevated INR GERD (gastroesophageal reflux disease) Hypoglycemia Hypothyroid Inguinal hernia Metabolic acidosis Prolonged Q-T interval on ECG SBO (small bowel obstruction) Vitamin K deficiency Surgical History H/O splenectomy Family History Other No pertinent family history Social History Smoking Status: Former smoker Second Hand Exposure: No; Hx Alcohol Use: Yes Alcohol type: beer Hx Substance Use: No Preferred Language: Martiniquais Communication Ability: Effective Survey Field Technician Required: No Beliefs That Will Affect Care: None marital status: Current Living Situation: Other Current Living Situation Comment: [facility] Feels Safe at Home: Yes Assistive Devices: Glasses Physical Exam Constitutional: WD/WN, vitals as above Respiratory: normal respiratory effort, lungs clear to auscultation Cardiovascular: RRR, no murmur, no edema Gastrointestinal (Abdomen): normal bowel sounds, soft, nontender, no hepatosplenomegaly Results & Data ([facility]) Vital Signs (Past 12 Hours) Vital Signs Temp Pulse Pulse Resp BP Pulse Ox 01/28/21 07:31 36.4 C L 66 18 101/66 98 01/28/21 02:58 36.4 C L 59 L 18 94/64 L 97 01/27/21 23:41 64 01/27/21 22:22 36.4 C L 63 16 124/74 98 Code Status & VTE Plan VTE Prophylaxis Plan VTE Prophylaxis will be ordered: No (1) Anemia Anemia type: unspecified type Qualified Code(s): D64.9 - Anemia, unspecified
--- NOTE | 2021-01-28 09:19 | Anesthesiology Consultation ---
Date of Service January 28, 2021 Assessment & Plan Chart Review Chart Review: Acceptable Risk for Surgery Consults Requested none History Surgery Operation Date: 01/28/21 16:30 Proposed Procedures p Colonoscopy EGD Dr Shields - Jeannette Shields, Height/Weight Height: 5 ft 9 in Weight: 40 kg Allergies Allergy/AdvReac Type Severity Reaction Status Date / Time Penicillins Allergy Unknown unknown Verified 01/28/21 09:09 gluten AdvReac Unknown GI SYMPTOMS Verified 01/28/21 09:09 lactose AdvReac Gastrointestinal Verified 01/28/21 09:09 Upset Medications Home Medications Medication Instructions Recorded Confirmed Last Taken acetaminophen 500 mg tablet 500 mg PO TID PRN 01/15/21 01/15/21 Unknown (Tylenol Extra Strength) buspirone 5 mg tablet 5 mg PO BID 01/15/21 01/15/21 Unknown calcitriol 0.5 mcg capsule 1 mcg PO BID 01/15/21 01/15/21 Unknown calcium carbonate 200 mg calcium 0 mg PO TID PRN 01/15/21 01/15/21 Unknown (500 mg) chewable tablet (Tums) cholecalciferol (vitamin D3) 25 125 mcg PO DAILY 01/15/21 01/15/21 Unknown mcg (1,000 unit) tablet (Vitamin D3) ciclesonide 80 mcg/actuation 1 puff INHALATION BID 01/15/21 01/15/21 Unknown aerosol inhaler (Alvesco) cyanocobalamin (vitamin B-12) 1,000 mcg SUBCUT MO 01/15/21 01/15/21 Unknown 1,000 mcg/mL injection solution folic acid 1 mg tablet 1 mg PO HS 01/15/21 01/15/21 Unknown lactase 3,000 unit tablet 3,000 unit PO .QID UD PRN 01/15/21 01/15/21 Unknown levalbuterol tartrate 45 2 inh INHALATION QID PRN 01/15/21 01/15/21 Unknown mcg/actuation aerosol inhaler (Xopenex HFA) levothyroxine 25 mcg tablet 37.5 mcg PO DAILY 01/15/21 01/15/21 Unknown mcuswk-qphiyqrs-qmnlzuv 1 cap PO TIDM 01/15/21 01/15/21 Unknown 24,000-76,000-120,000 unit capsule,delayed rel (Creon) magnesium oxide 800 mg PO BID 01/15/21 01/15/21 Unknown methyl salicylate-menthol topical 1 ea TOPICAL .UD 01/15/21 01/15/21 Unknown ointment mirtazapine 15 mg tablet 15 mg PO HS 01/15/21 01/15/21 Unknown tamsulosin 0.4 mg capsule 0.4 mg PO HS 01/15/21 01/15/21 Unknown Active Medications Generic Name Dose Route Start Last Admin Trade Name Freq PRN Reason Stop Dose Admin Acetaminophen 650 mg 01/15/21 03:21 01/16/21 02:34 Acetaminophen 325 Mg Tab PO 02/14/21 03:20 650 mg Q4H PRN Administration Pain or Fever Lipase/Protease/Amylase 2 cap 01/15/21 08:00 01/27/21 17:52 Pancreaze (Lipase 10,500u) Cap PO 02/14/21 07:59 Not Given TIDM TIMOTEO Buspirone HCl 5 mg 01/15/21 09:00 01/27/21 21:01 Buspirone 5 Mg Tab PO 02/14/21 08:59 5 mg BID TIMOTEO Administration Calcium Carbonate 1,250 mg 01/22/21 08:00 01/27/21 20:12 Calcium Carbonate 1,250 Mg/5 Ml Udc PO 02/21/21 07:59 1,250 mg BIDM@0800,1900 TIMOTEO Administration Colestipol HCl 1 gm 01/27/21 10:00 01/27/21 11:01 Colestipol Hcl 1 Gm Tab PO 02/26/21 09:59 Not Given DAILY@1000 TIMOTEO Fluticasone Furoate 1 puffs 01/15/21 09:00 01/27/21 09:20 Fluticasone Furoate 200mcg 14 Puffs/Inhaler INH 02/14/21 08:59 Not Given DAILY TIMOTEO Pantoprazole Sodium 40 mg/ 10 mls @ 5 mls/min 01/24/21 14:05 01/27/21 21:02 Syringe IV 02/23/21 14:04 5 mls/min BID TIMOTEO Administration Folic Acid 1 mg/ Syringe 10 mls @ 5 mls/min 01/24/21 21:00 01/27/21 21:01 IV 02/23/21 20:59 5 mls/min HS TIMOTEO Administration Potassium Chloride/Dextrose/Sod Cl 20 meq in 1,000 mls @ 40 mls/hr 01/26/21 20:00 01/28/21 05:43 D5nss + 20meq Kcl IV 02/25/21 19:59 40 mls/hr .Q24H TIMOTEO Infusion Heparin Sodium/Dextrose 25,000 units in 500 mls @ 0 mls/hr 01/26/21 20:15 01/28/21 05:45 Heparin Sodium/Dextrose IV 02/25/21 20:14 0 units/hr .Q0M TIMOTEO 0 mls/hr Titration Protocol 0 UNITS/HR Lactase 3,000 units 01/15/21 07:30 01/27/21 17:52 Lactase 3000 Unit Tab PO 02/14/21 07:29 Not Given AC TIMOTEO Levothyroxine Sodium 37.5 mcg 01/15/21 06:30 01/28/21 05:47 Levothyroxine Sodium 75 Mcg Tablet PO 02/14/21 06:29 37.5 mcg DAILYBB TIMOTEO Administration Mirtazapine 15 mg 01/15/21 21:00 01/27/21 21:02 Mirtazapine Soltab 15 Mg PO 02/14/21 20:59 15 mg HS TIMOTEO Administration Multivitamins/Minerals 1 tab 01/17/21 09:00 01/27/21 09:20 Cerovite Adv Formula Tab PO 02/16/21 08:59 Not Given QAM TIMOTEO Potassium Chloride 20 meq 01/24/21 11:30 01/27/21 21:02 Potassium Chloride Pwd 20 Meq Pack PO 02/23/21 11:29 20 meq BID TIMOTEO Administration Potassium Phosphate 1 tab 01/21/21 21:00 01/27/21 21:02 Pot Phosphate Monobasic W/ Sod Tab PO 02/20/21 20:59 1 tab QID TIMOTEO Administration Tamsulosin HCl 0.4 mg 01/15/21 09:00 01/27/21 21:02 Tamsulosin Hcl 0.4 Mg Cap PO 02/14/21 08:59 0.4 mg BID TIMOTEO Administration Thiamine HCl 200 mg 01/15/21 09:00 01/27/21 21:02 Thiamine Hcl 100 Mg Tab PO 02/14/21 08:59 200 mg BID TIMOTEO Administration Vitamin D 4,000 units 01/15/21 09:15 01/27/21 09:20 Cholecalciferol 1,000 Units 25 Mcg Tab PO 02/14/21 09:14 Not Given DAILY TIMOTEO Zinc Sulfate 220 mg 01/24/21 09:30 01/27/21 09:20 Zinc Sulfate 220 Mg Capsule PO 02/23/21 09:29 Not Given QAM TIMOTEO NPO Date Last Intake of Fluids: 01/28/21 Time Last Intake of Fluids: 02:00 Date Last Intake of Solids: 01/26/21 Time Last Intake of Solids: 18:00 Past Medical History Medical History Anemia B12 deficiency BPH (benign prostatic hyperplasia) Celiac disease Chronic deep vein thrombosis (DVT) Coagulopathy Elevated INR GERD (gastroesophageal reflux disease) Hypoglycemia Hypothyroid Inguinal hernia Metabolic acidosis Prolonged Q-T interval on ECG SBO (small bowel obstruction) Vitamin K deficiency Past Family History Family History Other No pertinent family history Past Surgical History Surgical History H/O splenectomy Social History Smoking Status: Former smoker Do You Dip or Chew Tobacco: No Hx Alcohol Use: Yes Alcohol type: beer alcohol intake frequency: a few times a month Alcohol Intake Frequency Comment: hasn't drank in many years. Hx Substance Use: No substance use type: does not use Physical Exam Vital Signs Last Vital Signs Temp 36.1 C L 01/28/21 09:11 Pulse 58 L 01/28/21 09:11 Resp 16 01/28/21 09:11 BP 104/72 01/28/21 09:11 Pulse Ox 98 01/28/21 09:11 Testing Laboratory Results 01/28/21 06:51 01/28/21 06:51 PT 12.3 Seconds (9.0-12.0) H 01/26/21 07:31 INR 1.2 (0.9-1.1) H 01/26/21 07:31 APTT 42.8 Seconds (21.0-31.0) H 01/28/21 06:51
[2021-01-28] MEDS ORDERED: LIDOCAINE 2% 2 ML VIAL/AMP(20MG/ML) INFIL ONE (10:35)
[2021-01-28] MEDS ORDERED: PROPOFOL IV EMULSION 10 MG/ML 20 ML VIAL IV ONE (10:35)
[2021-01-28] MEDS ORDERED: PHENYLEPHRINE 100MCG/ML 5ML SYR ONE (10:35)
--- NOTE | 2021-01-28 11:08 | GI REPORT ---
Patient Name: Rikki Pascual Procedure Date: 01/28/2021 9:25 AM Date of : 1960 Admit Type: Inpatient Age: 60 Gender: Male Attending MD: Jeannette Shields DO Procedure: Upper GI endoscopy Providers: Jeannette Shields DO Referring MD: Leo Sun Indications: Iron deficiency anemia, Follow-up of celiac disease, Weight loss Medicines: Propofol per Anesthesia Complications: No immediate complications. Estimated blood loss: Minimal. Estimated Blood Loss: Estimated blood loss was minimal. Procedure: Pre-Anesthesia Assessment: - Prior to the procedure, a History and Physical was performed, and patient medications, allergies and sensitivities were reviewed. The patient's tolerance of previous anesthesia was reviewed. - The risks and benefits of the procedure and the sedation options and risks were discussed with the patient. All questions were answered and informed consent was obtained. - Patient identification and proposed procedure were verified prior to the procedure by the physician and the nurse. The procedure was verified in the pre-procedure area in the procedure room. - Mental Status Examination: alert and oriented. Airway Examination: normal oropharyngeal airway and neck mobility. Respiratory Examination: clear to auscultation. CV Examination: normal. Abdominal Examination: bowel sounds present, abdomen soft and non-tender, no masses or organomegaly noted. - ASA Grade Assessment: III - A patient with severe systemic disease. After obtaining informed consent, the endoscope was passed under direct vision. Throughout the procedure, the patient's blood pressure, pulse, and oxygen saturations were monitored continuously. The Colonoscope was introduced through the mouth, and advanced to the third part of duodenum. The upper GI endoscopy was accomplished without difficulty. The patient tolerated the procedure well. Findings: Moderate mucosal changes characterized by congestion, erythema, erosion and nodularity were found in the lower third of the esophagus. Biopsies were taken with a cold forceps for histology. Verification of patient identification for the specimen was done by the physician and nurse using the patient's name and date. Estimated blood loss was minimal. A large, infiltrative mass with oozing bleeding was found in the gastric body. Biopsies were taken with a cold forceps for histology. Verification of patient identification for the specimen was done by the physician and nurse using the patient's name and date. Estimated blood loss was minimal. Decreased folds were found in the entire duodenum, flattening was found in the entire duodenum and scalloped mucosa was found in the entire duodenum. Biopsies for histology were taken with a cold forceps for evaluation of celiac disease. Verification of patient identification for the specimen was done by the physician and nurse using the patient's name and date. Estimated blood loss was minimal. Impression: - Congested, erythematous, eroded, nodular mucosa in the esophagus. Biopsied. 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 Biopsied. - Duodenal mucosal changes seen, diagnostic of celiac disease. Biopsied. Recommendation: - Await pathology results. - Perform a colonoscopy today. Jeannette Shields D.O. Jeannette Shields, 01/28/2021 11:07:46 AM This report has been signed electronically. Note Initiated On: 01/28/2021 9:25 AM Number of Addenda: 0 I attest to the content of the Intraoperative Record and orders documented therein, exceptions below {[id number]}
--- NOTE | 2021-01-28 11:10 | GI REPORT ---
Patient Name: Rikki Pascual Procedure Date: 01/28/2021 9:24 AM Date of : 1960 Admit Type: Inpatient Age: 60 Gender: Male Attending MD: Jeannette Shields DO Procedure: Colonoscopy Providers: Jeannette Shields DO Referring MD: Leo Sun Indications: Chronic diarrhea Medicines: Propofol per Anesthesia Complications: No immediate complications. Estimated blood loss: Minimal. Estimated Blood Loss: Estimated blood loss was minimal. Procedure: Pre-Anesthesia Assessment: - Prior to the procedure, a History and Physical was performed, and patient medications, allergies and sensitivities were reviewed. The patient's tolerance of previous anesthesia was reviewed. - The risks and benefits of the procedure and the sedation options and risks were discussed with the patient. All questions were answered and informed consent was obtained. - Patient identification and proposed procedure were verified prior to the procedure by the physician and the nurse. The procedure was verified in the pre-procedure area in the procedure room. - Mental Status Examination: alert and oriented. Airway Examination: normal oropharyngeal airway and neck mobility. Respiratory Examination: clear to auscultation. CV Examination: normal. Abdominal Examination: bowel sounds present, abdomen soft and non-tender, no masses or organomegaly noted. - ASA Grade Assessment: III - A patient with severe systemic disease. After I obtained informed consent, the scope was passed under direct vision. Throughout the procedure, the patient's blood pressure, pulse, and oxygen saturations were monitored continuously. The Colonoscope was introduced through the anus and advanced to the terminal ileum. The colonoscopy was performed without difficulty. The patient tolerated the procedure well. The quality of the bowel preparation was good. Findings: The perianal and digital rectal examinations were normal. Pertinent negatives include normal sphincter tone and no palpable rectal lesions. The terminal ileum appeared normal. The colon (entire examined portion) appeared normal. Biopsies for histology were taken with a cold forceps from the entire colon for evaluation of microscopic colitis. Verification of patient identification for the specimen was done by the physician and nurse using the patient's name and date. Estimated blood loss was minimal. The retroflexed view of the distal rectum and anal verge was normal and showed no anal or rectal abnormalities. Impression: - The examined portion of the ileum was normal. - The entire examined colon is normal. Biopsied. - The distal rectum and anal verge are normal on retroflexion view. Recommendation: - Await pathology results. - Advance diet as tolerated. - [facility] patient to [facility] for [facility] care. Jeannette Shields D.O. Jeannette Shields, 01/28/2021 11:10:34 AM This report has been signed electronically. Note Initiated On: 01/28/2021 9:24 AM Number of Addenda: 0 I attest to the content of the Intraoperative Record and orders documented therein, exceptions below {[id number]}
--- NOTE | 2021-01-28 11:37 | Anesthesiology Progress Note ---
Date of Service January 28, 2021 Anesthesia Post Procedure Vital Signs Vital Signs: Temp Pulse Pulse Resp BP BP Pulse Ox 01/28/21 11:20 67 14 98/70 L 98 01/28/21 11:05 62 14 99/61 L 97 01/28/21 10:50 66 16 85/55 L 97 01/28/21 09:11 36.1 C L 58 L 16 104/72 98 01/28/21 07:31 36.4 C L 66 18 101/66 98 01/28/21 02:58 36.4 C L 59 L 18 94/64 L 97 01/27/21 23:41 64 01/27/21 22:22 36.4 C L 63 16 124/74 98 01/27/21 19:51 36.5 C 64 16 95/54 L 96 01/27/21 16:46 63 01/27/21 15:09 36.5 C 67 18 83/56 L 98 Pain Intensity Abdomen: Pain Intensity: 5 Transfer of Care Handoff Completed per policy Notes Mental Status: alert / awake / arousable and participated in evaluation Patient Amnestic to Procedure: Yes Nausea / Vomiting: adequately controlled Pain: adequately controlled Airway Patency, RR, SpO2: stable & adequate BP & HR: stable & adequate Hydration State: stable & adequate Anesthetic Complications: no major complications apparent
[2021-01-28] MEDS: CALCIUM CARBONATE 1,250 MG/5 ML UDC PO SCH ×2 (12:07→23:24)
[2021-01-28] MEDS: CEROVITE ADV FORMULA TAB PO SCH (12:07)
[2021-01-28] MEDS: busPIRone 5 MG TAB PO SCH ×2 (12:07→23:24)
[2021-01-28] MEDS: CHOLECALCIFEROL 1,000 UNITS 25 MCG TAB PO SCH (12:07)
[2021-01-28] MEDS: LACTASE 3000 UNIT TAB PO SCH ×3 (12:07→16:56)
[2021-01-28] MEDS: PANCREAZE (LIPASE 10,500U) CAP PO SCH ×3 (12:07→16:56)
[2021-01-28] MEDS: ZINC SULFATE 220 MG CAPSULE PO SCH (12:08)
[2021-01-28] MEDS: POT PHOSPHATE MONOBASIC W/ SOD TAB PO SCH ×3 (12:08→16:57)
[2021-01-28] MEDS: COLESTIPOL HCL 1 GM TAB PO SCH (12:08)
[2021-01-28] MEDS: TAMSULOSIN HCL 0.4 MG CAP PO SCH ×2 (12:08→23:25)
[2021-01-28] MEDS: THIAMINE HCL 100 MG TAB PO SCH ×2 (12:08→23:23)
[2021-01-28] MEDS: POTASSIUM CHLORIDE PWD 20 MEQ PACK PO SCH (12:11)
[2021-01-28] MEDS: FLUTICASONE FUROATE 200MCG 14 PUFFS/INHALER INH SCH (12:12)
[2021-01-28] MEDS: MAGNESIUM SULFATE / D5W 1 GM/100 ML BAG IV SCH ×3 (12:17→20:55)
[2021-01-28] MEDS: D5NSS + 20MEQ KCL 20 MEQ/1,000 ML BAG IV SCH (12:17)
[2021-01-28] MEDS: PANTOprazole 40 MG in SYRINGE 0 ML IV SCH ×2 (12:18→23:36)
[2021-01-28] MEDS: CALCITRIOL 0.25 MCG CAPSULE PO SCH (12:32)
--- NOTE | 2021-01-28 21:17 | Hospitalist Progress Note ---
Date of Service January 28, 2021 Assessment & Plan (1) Gastric mass: Plan: bx's pending highly suspicious for gastric ca vs gastric lymphoma; could be a MALT but doubtful very poor prognosis if cancer father had gastric ca await biopsy results (2) Abnormal CT of the abdomen: Plan: 01/26 CT a/p - portal venous gas seen but no free air; no pneumatosis. cause --- transient ischemia? infectious? other? gen surg consulted - nothing surgical at this time. GI consult appreciated. nothing to do for the portal vein gas. (3) PVT (portal vein thrombosis): Plan: as seen on CT. likely hypercoagulable due to #1. was started on standard heparin drip -- held for scopes today, resume post- scopes. will need lifelong anticoagulation - he has had VTE in the past. (4) Hypocalcemia: Plan: IMPROVING. Presented with severe hypocalcemia leading to severe tetany. Multifactorial - severe hypoalbuminemia, hypokalemia, hypomagnesemia, vitamin D deficiency, etc. Continue calcitriol 2 mcg p.o. twice daily. Continue calcium carbonate 1250 mg twice daily. Corrected calcium level today >8. BMP in am. (5) Severe protein-calorie malnutrition: Plan: 2nd to uncontrolled celiac disease. and now the suspected gastric ca. biopsies pending. Records indicate a past h/o microscopic colitis in 2018 requiring steroids - that could have returned as well. biopsies from colon pending. Cont MVI. Replete electrolytes. Suspect refeeding syndrome. Supplement thiamine. Supplement zinc. (6) Celiac disease: Plan: Noncompliant with diet at care home. Also with prior history of lymphocytic colitis related to celiac disease- previously on steroids but not at this time. Stool studies negative for infection. Complained of abdominal pain over the weekend with eating - now resolved. Was this from gastric mass? PVT? other? checked lipase - negative. cont PPI twice daily IV. (7) Supratherapeutic INR: Plan: 2nd to vitamin K deficiency. resolved s/p vitamin k supplementation at admissioni. (8) GERD (gastroesophageal reflux disease): Plan: Continue PPI IV EGD findings reviewed (9) Prolonged QT interval: Plan: 2nd to low K and low mag resolved (10) Hypothyroid: Plan: TSH mildly elevated consider modest increase in synthroid (11) Lactose intolerance: Plan: switching to soy products as advised by nutrition (12) Mood disorder: Plan: continue buspar 5 mg bid and Remeron (13) PAF (paroxysmal atrial fibrillation): Plan: 30 minutes of atrial fibrillation during hospitalization several years ago no PAF during this stay (14) Chronic deep vein thrombosis (DVT): Plan: Prior history of DVT see "PVT" above (15) Transaminitis: Plan: CT abd/pelvis with abnormal appearing left lobe of the liver (16) Elevated alkaline phosphatase level: Plan: 2nd vitamin D deficiency can't rule out osteomalacia other culprits possible follow (17) Anemia: Plan: surprisingly his B12, folate, and Fe studies are normal could have micronutrient def leading to anemia - zinc, etc alternatively - this simply could be anemia of chronic disease (18) Hypokalemia: Plan: ongoing 2nd diarrhea, poor oral intake and can't r/o refeeding syndrome replace K replace mag (19) BPH (benign prostatic hyperplasia): Plan: Continue Flomax (20) Hypophosphatemia: Plan: resolved s/p replacement (21) Vitamin D deficiency: Plan: 25-OH vit D level = 11 this admission cont to replace (22) Pulmonary embolus: Plan: as seen on CT 01/26/21 resume heparin drip post-scopes lifelong anticoagulation will be needed due to prior VTE (had DVT in the past) (23) Refeeding syndrome: Plan: suspected cont electrolyte replacement (24) Lymphocytic colitis: Plan: history of 2017 - confirmed with colonoscopy biopsies at that time took steroids for some period of time colonoscopy with biopsies today f/u on path (25) Failure to thrive: Plan: celiac, probable ca, possible lymphocytic colitis Plan: does patient need SNF level of care post-d/c through the care home system?? Admission and Anticipated Discharge Date Admission Date: January 15, 2021 Subjective saw patient post-EGD/colonoscopy discussed the EGD results - told him bx's were pending he asked for diet advancement - doing fine with full liquids post-scopes no abd pain no vomiting no new issues tele stable Review of Systems Review of Systems: gen - no fevers CV - no chest pain pulm - no dyspnea GI - ongoing diarrhea, no blood, no vomiting Physical Exam Physical Exam: gen - severe cachexia, NAD, disheveled, very weak appearing skin - pallor, faint erythematous rash on back; pressure sore L scapular region covered w/ optifoam- no changes mouth - MMM; no lesions; no thrush heart - RRR, s1 s2, no murmur lungs - CTA b/l, decreased BS bases abd - soft, NT, ND, BS+ ext - thin, no edema, severe muscle wasting of legs/arms Results & Data Results & Data ([facility]) Vital Signs (Past 12 Hours) Vital Signs Temp Pulse Resp BP BP Pulse Ox 01/28/21 15:51 36.8 C 93 H 20 94/67 L 98 01/28/21 11:20 67 14 98/70 L 98 01/28/21 11:05 62 14 99/61 L 97 01/28/21 10:50 66 16 85/55 L 97 Laboratory Results Laboratory Results - last 24 hr 01/28/21 01/28/21 01/28/21 06:51 06:51 06:51 WBC 4.20 L RBC 2.66 L Hgb 9.0 L Hct 27.1 L MCV 101.9 H MCH 33.8 MCHC 33.2 RDW Std Deviation 58.9 H RDW Coeff of Tevin 16.5 H Plt Count 350 D MPV 11.3 H Immature Gran % (Auto) 0.0 Neut % (Auto) 57.1 Lymph % (Auto) 29.8 [place] % (Auto) 11.2 Eos % (Auto) 1.4 Baso % (Auto) 0.5 Neut # (Auto) 2.40 Lymph # (Auto) 1.25 [place] # (Auto) 0.47 Eos # (Auto) 0.06 Baso # (Auto) 0.02 Immature Gran # (Auto) 0.00 Absolute Nucleated RBC 0.03 H Nucleated RBC % (auto) 0.7 Target Cells 1+ [place] Bodies 1+ APTT 42.8 H PTT Ratio 1.6 Sodium 144 Potassium 3.7 D Chloride 115 H Carbon Dioxide 22 Anion Gap 7.0 BUN 6 L Creatinine 0.37 L Est Cr Clr Drug Dosing 117.1 Est GFR ( Amer) > 150.0 Est GFR (Non-Af Amer) 131.4 BUN/Creatinine Ratio 16.1 Glucose 61 L Calcium 6.8 L Magnesium 1.3 L PG Care Time/CCT Total # of Minutes Spent Total Time Spent with Patient: Total time spent is greater than 50% in coordination of care (as documented) at patient's floor/unit and/or counseling patient: Coding Level of Care Code 48855 Subseq Hosp Care Lvl [address] of the abdomen R93.5 PVT (portal vein thrombosis) I81 Hypocalcemia E83.51 Severe protein-calorie malnutrition E43 Celiac disease K90.0 Supratherapeutic INR R79.1 GERD (gastroesophageal reflux disease) K21.9 Prolonged QT interval R94.31 Hypothyroid E03.9 Lactose intolerance E73.9 Mood disorder F39 PAF (paroxysmal atrial fibrillation) I48.0 Chronic deep vein thrombosis (DVT) I82.509 Transaminitis R74.01 Elevated alkaline phosphatase level R74.8 Anemia D64.9 Anemia type: unspecified type Hypokalemia E87.6 BPH (benign prostatic hyperplasia) N40.0 Hypophosphatemia E83.39 Vitamin D deficiency E55.9 Pulmonary embolus I26.99 Refeeding syndrome E87.8 Lymphocytic colitis K52.832 Failure to thrive R62.7 Failure to thrive age range: in adult Gastric mass K31.89 (1) Anemia Anemia type: unspecified type Qualified Code(s): D64.9 - Anemia, unspecified (2) Failure to thrive Failure to thrive age range: in adult Qualified Code(s): R62.7 - Adult failure to thrive
[2021-01-28] MEDS: MIRTAZAPINE SOLTAB 15 MG PO SCH (23:25)
[2021-01-28] MEDS: FOLIC ACID 1 MG in SYRINGE 9.8 ML IV SCH (23:33)
[2021-01-29] MEDS ORDERED: SODIUM CHLORIDE 0.9% 500 ML IV ONE (01:04)
[2021-01-29] MEDS: LEVOTHYROXINE SODIUM 75 MCG TABLET PO SCH (04:40)
[2021-01-29] MEDS: PANCREAZE (LIPASE 10,500U) CAP PO SCH ×3 (08:23→17:05)
[2021-01-29] MEDS: FLUTICASONE FUROATE 200MCG 14 PUFFS/INHALER INH SCH (08:26)
[2021-01-29] MEDS: THIAMINE HCL 100 MG TAB PO SCH ×2 (08:27→21:00)
[2021-01-29] MEDS: PANTOprazole 40 MG in SYRINGE 0 ML IV SCH ×2 (08:27→21:01)
[2021-01-29] MEDS: busPIRone 5 MG TAB PO SCH ×2 (08:28→21:00)
[2021-01-29] MEDS: ZINC SULFATE 220 MG CAPSULE PO SCH (08:28)
[2021-01-29] MEDS: CEROVITE ADV FORMULA TAB PO SCH (08:28)
[2021-01-29] MEDS: CHOLECALCIFEROL 1,000 UNITS 25 MCG TAB PO SCH (08:29)
[2021-01-29] MEDS: TAMSULOSIN HCL 0.4 MG CAP PO SCH ×2 (08:29→21:01)
[2021-01-29] MEDS: CALCIUM CARBONATE 1,250 MG/5 ML UDC PO SCH ×2 (08:29→18:10)
[2021-01-29] MEDS: LACTASE 3000 UNIT TAB PO SCH ×3 (08:30→17:05)
--- NOTE | 2021-01-29 08:58 | Communication Note ---
Date of Service: January 29, 2021 Discussed EGD findings with pt. He verbalized we are awaiting pathology results. Can continue diet as tolerated. Recall GI as needed.
[2021-01-29] MEDS ORDERED: CALCITRIOL 0.25 MCG CAPSULE PO SCH (09:00)
[2021-01-29 09:04] LABS: Basophils # (auto) 0.01 K/uL (0-0.2); Basophils % (auto) 0.2 %; Eosinophils # (auto) 0.02 K/uL (0-0.5); Eosinophils % (auto) 0.4 %; Hematocrit (blood only) 30.2 % (42-52); Hemoglobin 9.9 g/dL (14.0-18.0); Immature Granulocytes # (auto) 0.01 K/uL (0.00-0.02); Immature Granulocytes % (auto) 0.2 %; Lymphocytes # (auto) 0.98 K/uL (1.2-3.4); Lymphocytes % (auto) 17.9 %; Mean Corpuscular Hgb Conc 32.8 g/dL (32-36); Mean Corpuscular Volume 103.8 fL (80-100); Mean Platelet Volume 10.9 fL (7.4-10.4); Monocytes # (auto) 0.49 K/uL (0.11-0.59); Monocytes % (auto) 8.9 %; Neutrophils # (auto) 3.98 K/uL (1.4-6.5); Neutrophils % (auto) 72.4 %; Nucleated RBC # (auto) 0.02 K/uL (0-0); Nucleated RBC % (auto) 0.3 %; Platelet Count 360 K/uL (130-400); RDW Coefficient of Variation 16.4 % (11.5-14.5); RDW Standard Deviation 59.6 fL (36.4-46.3); Red Blood Count 2.91 M/uL (4.7-6.1); White Blood Count 5.49 K/uL (4.8-10.8)
[2021-01-29 09:12] LABS: Partial Thromboplastin Ratio 1.2
[2021-01-29 09:40] LABS: BUN Creatinine Ratio 12.1 (10-20); Calcium 6.9 mg/dl (8.5-10.1); Creatinine Clr Calc Pharmacy 90.3 ml/min; Est GFR (African American) 133.5 ml/min; Est GFR (Non-African American) 115.2 ml/min; Magnesium 1.6 mg/dl (1.8-2.4); Potassium 3.2 mmol/L (3.5-5.1)
[2021-01-29] MEDS: HEPARIN SODIUM/DEXTROSE 25,000 UNITS/500 ML BAG IV SCH ×2 (10:21→16:47)
[2021-01-29] MEDS: COLESTIPOL HCL 1 GM TAB PO SCH (10:25)
[2021-01-29] MEDS: MAGNESIUM SULFATE / D5W 1 GM/100 ML BAG IV SCH ×3 (10:35→14:23)
[2021-01-29] MEDS: POTASSIUM CHLORIDE / WTR 10 MEQ/100 ML PLCT IV SCH ×2 (10:35→11:42)
--- NOTE | 2021-01-29 13:39 | Hospitalist Progress Note ---
Date of Service January 29, 2021 Assessment & Plan (1) Gastric mass: Plan: bx's pending highly suspicious for gastric ca vs gastric lymphoma; could be a MALT but doubtful very very poor prognosis if cancer given his underlying severe malnutrition, failure to thrive, etc. father had gastric ca await biopsy results fortunately not having any pain at this time (2) Abnormal CT of the abdomen: Plan: 01/26 CT a/p - portal venous gas seen but no free air; no pneumatosis. cause --- transient ischemia? infectious? other? gen surg consulted - nothing surgical at this time. GI consult appreciated. nothing to do for the portal vein gas. (3) PVT (portal vein thrombosis): Plan: as seen on CT. likely hypercoagulable due to #1. was started on standard heparin drip -- held for scopes, but now resumed today. will need lifelong anticoagulation - he has had VTE in the past. given his severe malnutrition may be helpful to get the opinion of Dr Klein for oral AC option (or perhaps lovenox). coumadin poor option given h/o recurrent vitamin K deficiency. (4) Hypocalcemia: Plan: IMPROVING. Presented with severe hypocalcemia leading to severe tetany. Multifactorial - severe hypoalbuminemia, hypokalemia, hypomagnesemia, vitamin D deficiency, etc. Continue calcitriol 1 mcg daily. Using calcitriol for vit D deficiency rather than D3 as the calcitriol will be more readily available due to malabsorption. Continue calcium carbonate 1250 mg twice daily. Corrected calcium level today again >8. BMP in am. (5) Severe protein-calorie malnutrition: Plan: 2nd to uncontrolled celiac disease and now the suspected gastric ca. biopsies pending. can't rule out a return of his microscopic colitis - colonic biopsies pending. Records indicate a past h/o microscopic colitis in 2018 requiring steroids. Cont MVI. Replete electrolytes. Supplement thiamine. Supplement zinc. Probably has refeeding syndrome - daily K, mag, phos, calcium. (6) Celiac disease: Plan: Noncompliant with diet at [facility]. Also with prior history of lymphocytic colitis related to celiac disease- previously on steroids but not at this time. Stool studies negative for infection. Complained of abdominal pain over last weekend with eating - now resolved. Was this from gastric mass? PVT? other? checked lipase - negative. cont PPI (7) Supratherapeutic INR: Plan: 2nd to vitamin K deficiency. resolved s/p vitamin k supplementation at admission. (8) GERD (gastroesophageal reflux disease): Plan: Continue PPI IV EGD findings reviewed (9) Prolonged QT interval: (10) Hypothyroid: Plan: TSH mildly elevated on last 3 checks increase synthroid to 50mcg daily repeat TSH 6 weeks (11) Lactose intolerance: Plan: switched to soy products as advised by nutrition (12) Mood disorder: Plan: continue buspar 5 mg bid and Remeron consider increase in remeron to 30mg HS (13) PAF (paroxysmal atrial fibrillation): Plan: 30 minutes of atrial fibrillation during hospitalization several years ago no PAF during this stay (14) Chronic deep vein thrombosis (DVT): Plan: Prior history of DVT see "PVT" above (15) Transaminitis: Plan: CT abd/pelvis with abnormal appearing left lobe of the liver mildly abnormal LFTs trend (16) Elevated alkaline phosphatase level: Plan: 2nd vitamin D deficiency can't rule out osteomalacia other culprits possible should improve with correction of vitamin D level (17) Anemia: Plan: surprisingly his B12, folate, and Fe studies are normal could have micronutrient def leading to anemia - zinc, etc alternatively - this simply could be anemia of chronic disease (18) Hypokalemia: Plan: ongoing 2nd diarrhea, poor oral intake and can't r/o refeeding syndrome replace K replace mag repeat K/Mag/Ca in am (19) BPH (benign prostatic hyperplasia): Plan: Continue Flomax (20) Hypophosphatemia: Plan: resolved s/p replacement (21) Vitamin D deficiency: Plan: 25-OH vit D level = 11 this admission cont to replace (22) Pulmonary embolus: Plan: as seen on CT 01/26/21 resume heparin drip post-scopes lifelong anticoagulation will be needed due to prior VTE (had DVT in the past) (23) Refeeding syndrome: Plan: suspected cont electrolyte replacement and daily labs (24) Lymphocytic colitis: Plan: history of 2018 - confirmed with colonoscopy biopsies at that time took steroids for some period of time colonoscopy with biopsies yesterday f/u on path (25) Failure to thrive: Plan: celiac, probable ca, possible lymphocytic colitis Plan: does patient need SNF level of care post-d/c through the [facility] system?? Filomena Moreno with case management to check out options w/ [facility] sytem if biopsies return positive for cancer - which is highly likely - strongly recommend palliation; poor candidate for definitive Rx Admission and Anticipated Discharge Date Admission Date: January 15, 2021 Subjective patient resting in bed during the visit states diarrhea continues - numerous stools/day, liquid no abd pain able to eat solids - enjoys chicken and mashed potatoes he states "I want you to be honest with me when you have the results" (gastric bx results) states he has a and child in [facility]; have not seen them in some time daughter is in her 20s no new complaints - just very tired Review of Systems Review of Systems: gen - fatigue, weakness; wants to eat however cv - no cp pulm - denies dyspnea or pleuritic pain GI - no nausea/emesis - voiding fine psych - c/o depression Physical Exam Physical Exam: gen - severe cachexia, NAD, very weak appearing, disheveled skin - pallor, faint erythematous rash on back; pressure sore L scapular region covered w/ optifoam mouth - MMM; no lesions; no thrush heart - RRR, s1 s2, no murmur lungs - CTA b/l, decreased BS bases abd - soft, NT, BS+; mild distension; no HSM ext - thin, no edema, severe muscle wasting of legs/arms psych - flat affect Results & Data Results & Data ([facility]) Vital Signs (Past 12 Hours) Vital Signs Temp Pulse Pulse Resp BP BP Pulse Ox 01/29/21 11:40 36.7 C 83 20 89/55 L 95 01/29/21 07:42 67 01/29/21 04:37 36.4 C L 87 19 95/52 L 98 Laboratory Results Laboratory Results - last 24 hr 01/29/21 01/29/21 01/29/21 08:34 08:34 08:34 WBC 5.49 RBC 2.91 L Hgb 9.9 L Hct 30.2 L MCV 103.8 H MCH 34.0 MCHC 32.8 RDW Std Deviation 59.6 H RDW Coeff of [place] 16.4 H Plt Count 360 MPV 10.9 H Immature Gran % (Auto) 0.2 Neut % (Auto) 72.4 Lymph % (Auto) 17.9 [place] % (Auto) 8.9 Eos % (Auto) 0.4 Baso % (Auto) 0.2 Neut # (Auto) 3.98 Lymph # (Auto) 0.[address] [place] # (Auto) 0.49 Eos # (Auto) 0.02 Baso # (Auto) 0.01 Immature Gran # (Auto) 0.01 Absolute Nucleated RBC 0.02 H Nucleated RBC % (auto) 0.3 APTT 31.0 PTT Ratio 1.2 Sodium 141 Potassium 3.2 L Chloride 114 H Carbon Dioxide 24 Anion Gap 3.0 BUN 6 L Creatinine 0.51 L Est Cr Clr Drug Dosing 90.3 Est GFR ( Amer) 133.5 Est GFR (Non-Af Amer) 115.2 BUN/Creatinine Ratio 12.1 Glucose 83 Calcium 6.9 L Magnesium 1.6 L Diagnostic Findings gastric biopsies, esophageal bx, colonic bx's = all pending PG Care Time/CCT Total # of Minutes Spent Total Time Spent with Patient: Total time spent is greater than 50% in coordination of care (as documented) at patient's floor/unit and/or counseling patient: Coding Level of Care Code 85001 Subseq Hosp Care Lvl 2 Diagnoses Gastric mass K31.[address] of the abdomen R93.5 PVT (portal vein thrombosis) I81 Hypocalcemia E83.51 Severe protein-calorie malnutrition E43 Celiac disease K90.0 Supratherapeutic INR R79.1 GERD (gastroesophageal reflux disease) K21.9 Prolonged QT interval R94.31 Hypothyroid E03.9 Lactose intolerance E73.9 Mood disorder F39 PAF (paroxysmal atrial fibrillation) I48.0 Chronic deep vein thrombosis (DVT) I82.509 Transaminitis R74.01 Elevated alkaline phosphatase level R74.8 Anemia D64.9 Anemia type: unspecified type Hypokalemia E87.6 BPH (benign prostatic hyperplasia) N40.0 Hypophosphatemia E83.39 Vitamin D deficiency E55.9 Pulmonary embolus I26.99 Refeeding syndrome E87.8 Lymphocytic colitis K52.832 Failure to thrive R62.7 Failure to thrive age range: in adult (1) Anemia Anemia type: unspecified type Qualified Code(s): D64.9 - Anemia, unspecified (2) Failure to thrive Failure to thrive age range: in adult Qualified Code(s): R62.7 - Adult failure to thrive
[2021-01-29] MEDS: POT PHOSPHATE MONOBASIC W/ SOD TAB PO SCH (16:48)
[2021-01-29 17:04] LABS: Partial Thromboplastin Ratio 1.8
[2021-01-29 17:09] LABS: Partial Thromboplastin Time 47.3 Seconds (21.0-31.0)
[2021-01-29] MEDS: MIRTAZAPINE SOLTAB 15 MG PO SCH (21:01)
[2021-01-29] MEDS: FOLIC ACID 1 MG in SYRINGE 9.8 ML IV SCH (22:00)
[2021-01-30] MEDS: LEVOTHYROXINE SODIUM 75 MCG TABLET PO SCH (05:42)
[2021-01-30 06:56] LABS: Partial Thromboplastin Ratio 1.8
[2021-01-30 07:00] LABS: Partial Thromboplastin Time 46.2 Seconds (21.0-31.0)
[2021-01-30 07:10] LABS: BUN Creatinine Ratio 10.9 (10-20); Calcium 6.9 mg/dl (8.5-10.1); Creatinine Clr Calc Pharmacy 89.9 ml/min; Est GFR (African American) 131.4 ml/min; Est GFR (Non-African American) 113.4 ml/min; Magnesium 1.7 mg/dl (1.8-2.4); Potassium 2.8 mmol/L (3.5-5.1)
[2021-01-30] MEDS: LACTASE 3000 UNIT TAB PO SCH ×3 (08:52→17:24)
[2021-01-30] MEDS: PANCREAZE (LIPASE 10,500U) CAP PO SCH ×3 (08:52→17:24)
[2021-01-30] MEDS: FLUTICASONE FUROATE 200MCG 14 PUFFS/INHALER INH SCH (08:52)
[2021-01-30] MEDS: CALCIUM CARBONATE 1,250 MG/5 ML UDC PO SCH ×2 (08:52→17:25)
[2021-01-30] MEDS: PANTOprazole 40 MG in SYRINGE 0 ML IV SCH ×2 (08:52→23:48)
[2021-01-30] MEDS: CALCITRIOL 0.25 MCG CAPSULE PO SCH (08:53)
[2021-01-30] MEDS: busPIRone 5 MG TAB PO SCH ×2 (08:53→23:50)
[2021-01-30] MEDS: CEROVITE ADV FORMULA TAB PO SCH (08:54)
[2021-01-30] MEDS: TAMSULOSIN HCL 0.4 MG CAP PO SCH ×2 (08:54→23:50)
[2021-01-30] MEDS: THIAMINE HCL 100 MG TAB PO SCH ×2 (08:54→23:52)
[2021-01-30] MEDS: ZINC SULFATE 220 MG CAPSULE PO SCH (08:55)
[2021-01-30] MEDS: COLESTIPOL HCL 1 GM TAB PO SCH (10:24)
[2021-01-30] MEDS: HEPARIN SODIUM/DEXTROSE 25,000 UNITS/500 ML BAG IV SCH ×2 (10:35→18:51)
--- NOTE | 2021-01-30 17:00 | Hospitalist Progress Note ---
Date of Service January 30, 2021 Assessment & Plan (1) Gastric mass: Plan: Biopsy results remain pending - highly suspicious for gastric ca vs gastric lymphoma; could be a MALT but doubtful - very very poor prognosis if cancer given his underlying severe malnutrition, failure to thrive, etc. - father had gastric ca -No pain at time of bedside assessment (2) Abnormal CT of the abdomen: Plan: - 01/26 CT a/p - portal venous gas seen but no free air; no pneumatosis. -DDx unclear, transient ischemia versus infectious versus other - CT-A/P: Thrombus involving some of the left portal veins. There is also portal venous gas adjacent to these areas of thrombus within the left hepatic lobe which demonstrates heterogeneous enhancement. This could be seen in the setting of an emphysematous hepatitis or possibly related to portal venous gas in the setting of ischemic bowel. However, there is no definite pneumoperitoneum or pneumatosis identified. 2. Thickened and edematous distal esophagus and stomach suggesting a nonspecific gastritis. 3. Multiple distended and fluid-filled loops of large and small bowel seen throughout the abdomen. No clear transition point to suggest an obstruction. Therefore, this favors a diarrheal illness/gastritis or ileus. 4. Small left pleural effusion. 5. Right lower lobe subsegmental pulmonary embolus. -General surgery consulted GI consulted.nothing to do for the portal vein gas. (3) PVT (portal vein thrombosis): Plan: CT as noted above Suspect hypercoagulability in the setting of malignancy Heparin GTT Anticipate lifelong anticoagulation at discharge Concern for warfarin in the setting of severe malnutrition and vitamin K deficiency versus Lovenox injections. We will consult Dr. Baeza for additional recommendations (4) Hypocalcemia: Plan: Improving Presented with severe hypocalcemia and tetany -Continue calcitriol 1 mcg daily. Using calcitriol for vit D deficiency rather than D3 as the calcitriol will be more readily available due to malabsorption. - Continue calcium carbonate 1250 mg twice daily. -Trend electrolytes daily (5) Severe protein-calorie malnutrition: Plan: - 2nd to uncontrolled celiac disease and now the suspected gastric ca. biopsies pending. - can't rule out a return of his microscopic colitis - colonic biopsies pending. - Records indicate a past h/o microscopic colitis in 2018 requiring steroids. -Cont MVI. - Replete electrolytes as needed -Continue thiamine supplementation -High risk for refeeding syndrome, continue daily K/mag/Phos/calcium (6) Celiac disease: Plan: -Noncompliant with diet at [facility]. -Also with prior history of lymphocytic colitis related to celiac disease- previously on steroids but not at this time. -Stool studies negative for infection. -Prior abdominal pain appears improved.? From gastric mass versus gastritis versus other Lipase negative Continue PPI (7) Supratherapeutic INR: Plan: 2nd to vitamin K deficiency. Patient will require anticoagulation as above, but is high risk for supratherapeutic INR due to nutritional deficiency s/p vitamin k supplementation at admission. (8) GERD (gastroesophageal reflux disease): Plan: Continue PPI IV EGD findings reviewed (9) Prolonged QT interval: (10) Hypothyroid: Plan: TSH mildly elevated on last 3 checks increase synthroid to 50mcg daily repeat TSH 6 weeks (11) Lactose intolerance: Plan: switched to soy products as advised by nutrition (12) Mood disorder: Plan: continue buspar 5 mg bid and Remeron consider increase in remeron to 30mg HS (13) PAF (paroxysmal atrial fibrillation): Plan: 30 minutes of atrial fibrillation during hospitalization several years ago no PAF during this stay (14) Chronic deep vein thrombosis (DVT): Plan: Prior history of DVT see "PVT" above (15) Transaminitis: Plan: CT abd/pelvis with abnormal appearing left lobe of the liver mildly abnormal LFTs trend (16) Elevated alkaline phosphatase level: Plan: 2nd vitamin D deficiency can't rule out osteomalacia other culprits possible should improve with correction of vitamin D level (17) Anemia: Plan: B12, folate, and Fe studies are normal could have micronutrient def leading to anemia - zinc, etc Differential includes anemia of chronic disease (18) Hypokalemia: Plan: ongoing 2nd diarrhea, poor oral intake and can't r/o refeeding syndrome replace K replace mag repeat K/Mag/Ca qam (19) BPH (benign prostatic hyperplasia): Plan: Continue Flomax (20) Hypophosphatemia: Plan: resolved s/p replacement (21) Vitamin D deficiency: Plan: 25-OH vit D level = 11 this admission cont to replace (22) Pulmonary embolus: Plan: as seen on CT 01/26/21 resume heparin drip post-scopes lifelong anticoagulation will be needed due to prior VTE (had DVT in the past) (23) Refeeding syndrome: Plan: suspected cont electrolyte replacement and daily labs (24) Lymphocytic colitis: Plan: history of 2018 - confirmed with colonoscopy biopsies at that time took steroids for some period of time colonoscopy with biopsies yesterday f/u on path (25) Failure to thrive: Plan: celiac, probable ca, possible lymphocytic colitis Plan: does patient need SNF level of care post-d/c through the [facility] system Filomena Moreno with case management to check out options w/ [facility] sytem if biopsies return positive for cancer - which is highly likely - strongly recommend palliation; poor candidate for definitive Rx Admission and Anticipated Discharge Date Admission Date: January 15, 2021 Subjective Seen at bedside. Eating a meal that difficulty. Denies abdominal pain, nausea today. Plus diarrhea today. Awaiting biopsy, no other questions or concerns. Stiffness has improved. Review of Systems Review of Systems: 10 point review systems negative except as otherwise noted and in subjective Physical Exam Physical Exam: General: Frail, cachectic appearing male. Chronically ill, does not appear acutely toxic. Alert and oriented x3. HEENT: Atraumatic, normocephalic. Pupils equal and reactive to light. Extraocular movements intact without nystagmus. Visual acuity and hearing grossly intact. Pulm: Diminished,wheezes, -rales, -rhonchi. Symmetrical chest rise. No increase work of breathing. No respiratory distress. Cardiac: RRR, -mrg. Radial pulses intact and symmetrical. Abdominal: abdomen otherwise nontender nondistended, soft. BS present. Extremities: Thin. Sensation to soft touch intact in hands and feet bilaterally without asymmetry. Results & Data Results & Data ([facility]) Vital Signs (Past 12 Hours) Vital Signs Temp Pulse Resp BP BP Pulse Ox 01/30/21 16:16 36.9 C 105 H 20 89/64 L 95 01/30/21 08:45 36.4 C L 100 H 22 93/61 L 100 PG Care Time/CCT Total # of Minutes Spent Total Time Spent with Patient: Total time spent is greater than 50% in coordination of care (as documented) at patient's floor/unit and/or counseling patient: Coding Level of Care Code 44801 Subseq Hosp Care Lvl 2 Diagnoses Gastric mass K31.[address] of the abdomen R93.5 PVT (portal vein thrombosis) I81 Hypocalcemia E83.51 Severe protein-calorie malnutrition E43 Celiac disease K90.0 Supratherapeutic INR R79.1 GERD (gastroesophageal reflux disease) K21.9 Prolonged QT interval R94.31 Hypothyroid E03.9 Lactose intolerance E73.9 Mood disorder F39 PAF (paroxysmal atrial fibrillation) I48.0 Chronic deep vein thrombosis (DVT) I82.509 Transaminitis R74.01 Elevated alkaline phosphatase level R74.8 Anemia D64.9 Anemia type: unspecified type Hypokalemia E87.6 BPH (benign prostatic hyperplasia) N40.0 Hypophosphatemia E83.39 Vitamin D deficiency E55.9 Pulmonary embolus I26.99 Refeeding syndrome E87.8 Lymphocytic colitis K52.832 Failure to thrive R62.7 Failure to thrive age range: in adult (1) Anemia Anemia type: unspecified type Qualified Code(s): D64.9 - Anemia, unspecified (2) Failure to thrive Failure to thrive age range: in adult Qualified Code(s): R62.7 - Adult failure to thrive
[2021-01-30] MEDS: MIRTAZAPINE SOLTAB 15 MG PO SCH (23:51)
[2021-01-31] MEDS: FOLIC ACID 1 MG in SYRINGE 9.8 ML IV SCH ×2 (01:26→19:47)
[2021-01-31] MEDS: LEVOTHYROXINE SODIUM 50 MCG TABLET PO SCH (06:30)
[2021-01-31 07:30] LABS: Basophils # (auto) 0.03 K/uL (0-0.2); Basophils % (auto) 0.4 %; Eosinophils # (auto) 0.07 K/uL (0-0.5); Eosinophils % (auto) 0.9 %; Hematocrit (blood only) 27.4 % (42-52); Immature Granulocytes # (auto) 0.02 K/uL (0.00-0.02); Immature Granulocytes % (auto) 0.3 %; Lymphocytes # (auto) 1.62 K/uL (1.2-3.4); Lymphocytes % (auto) 21.5 %; Mean Corpuscular Hemoglobin 34.2 pg (25-34); Mean Corpuscular Hgb Conc 32.8 g/dL (32-36); Mean Corpuscular Volume 104.2 fL (80-100); Mean Platelet Volume 10.9 fL (7.4-10.4); Monocytes # (auto) 0.85 K/uL (0.11-0.59); Monocytes % (auto) 11.3 %; Neutrophils # (auto) 4.96 K/uL (1.4-6.5); Neutrophils % (auto) 65.6 %; Platelet Count 430 K/uL (130-400); RDW Coefficient of Variation 16.5 % (11.5-14.5); RDW Standard Deviation 60.9 fL (36.4-46.3); Red Blood Count 2.63 M/uL (4.7-6.1); White Blood Count 7.55 K/uL (4.8-10.8)
[2021-01-31 07:50] LABS: Partial Thromboplastin Ratio 2.1
[2021-01-31 07:53] LABS: Partial Thromboplastin Time 54.8 Seconds (21.0-31.0)
[2021-01-31 07:58] LABS: Albumin Level 1.4 gm/dl (3.4-5.0); BUN Creatinine Ratio 11.6 (10-20); Calcium 6.5 mg/dl (8.5-10.1); Creatinine Clr Calc Pharmacy 88.3 ml/min; Est GFR (African American) 130.4 ml/min; Est GFR (Non-African American) 112.5 ml/min; Potassium 2.7 mmol/L (3.5-5.1)
[2021-01-31 08:01] LABS: Albumin Globulin Ratio 0.4 (0.9-2); Bilirubin,Total 0.2 mg/dl (0.2-1); Globulin 3.9 gm/dl (2.5-4.0); Total Protein 5.3 gm/dl (6.4-8.2)
[2021-01-31] MEDS: ACETAMINOPHEN 325 MG TAB PO PRN (08:07)
[2021-01-31] MEDS: POTASSIUM CHLORIDE / WTR 10 MEQ/100 ML PLCT IV SCH ×5 (08:08→19:44)
[2021-01-31] MEDS: PANCREAZE (LIPASE 10,500U) CAP PO SCH ×3 (09:27→17:29)
[2021-01-31] MEDS: LACTASE 3000 UNIT TAB PO SCH ×3 (09:27→17:29)
[2021-01-31] MEDS: CALCITRIOL 0.25 MCG CAPSULE PO SCH (09:28)
[2021-01-31] MEDS: busPIRone 5 MG TAB PO SCH ×2 (09:28→19:46)
[2021-01-31] MEDS: MAGNESIUM OXIDE 400 MG TAB PO SCH (09:28)
[2021-01-31] MEDS: THIAMINE HCL 100 MG TAB PO SCH ×2 (09:29→19:47)
[2021-01-31] MEDS: FLUTICASONE FUROATE 200MCG 14 PUFFS/INHALER INH SCH (09:29)
[2021-01-31] MEDS: CEROVITE ADV FORMULA TAB PO SCH (09:30)
[2021-01-31] MEDS: TAMSULOSIN HCL 0.4 MG CAP PO SCH ×2 (09:30→19:46)
[2021-01-31] MEDS: ZINC SULFATE 220 MG CAPSULE PO SCH (09:30)
[2021-01-31] MEDS: PANTOprazole 40 MG in SYRINGE 0 ML IV SCH ×2 (09:37→19:48)
[2021-01-31] MEDS: CALCIUM CARBONATE 1,250 MG/5 ML UDC PO SCH ×2 (09:38→18:18)
[2021-01-31] MEDS: COLESTIPOL HCL 1 GM TAB PO SCH (11:37)
--- NOTE | 2021-01-31 17:00 | Hospitalist Progress Note ---
Date of Service January 31, 2021 Assessment & Plan (1) Gastric mass: Plan: Biopsy results remain pending - highly suspicious for gastric ca vs gastric lymphoma; could be a MALT but doubtful - very very poor prognosis if cancer given his underlying severe malnutrition, failure to thrive, etc. - father had gastric ca -No pain at time of bedside assessment (2) Abnormal CT of the abdomen: Plan: - 01/26 CT a/p - portal venous gas seen but no free air; no pneumatosis. -DDx unclear, transient ischemia versus infectious versus other - CT-A/P: Thrombus involving some of the left portal veins. There is also portal venous gas adjacent to these areas of thrombus within the left hepatic lobe which demonstrates heterogeneous enhancement. This could be seen in the setting of an emphysematous hepatitis or possibly related to portal venous gas in the setting of ischemic bowel. However, there is no definite pneumoperitoneum or pneumatosis identified. 2. Thickened and edematous distal esophagus and stomach suggesting a nonspecific gastritis. 3. Multiple distended and fluid-filled loops of large and small bowel seen throughout the abdomen. No clear transition point to suggest an obstruction. Therefore, this favors a diarrheal illness/gastritis or ileus. 4. Small left pleural effusion. 5. Right lower lobe subsegmental pulmonary embolus. -General surgery consulted GI consulted. No intervention at this time for portal vein gas. (3) PVT (portal vein thrombosis): Plan: CT as noted above Suspect hypercoagulability in the setting of malignancy Heparin GTT Anticipate lifelong anticoagulation at discharge Concern for warfarin in the setting of severe malnutrition and vitamin K deficiency versus Lovenox injections. Given his risk for supratherapeutic INR, would likely recommend therapeutic Lovenox. We will consult Dr. Baeza pending biopsy results (4) Hypocalcemia: Plan: Improving Presented with severe hypocalcemia and tetany -Continue calcitriol 1 mcg daily. Using calcitriol for vit D deficiency rather than D3 as the calcitriol will be more readily available due to malabsorption. - Continue calcium carbonate 1250 mg twice daily. -Trend electrolytes daily (5) Severe protein-calorie malnutrition: Plan: - 2nd to uncontrolled celiac disease and now the suspected gastric ca. biopsies pending. - can't rule out a return of his microscopic colitis - colonic biopsies pending. - Records indicate a past h/o microscopic colitis in 2018 requiring steroids. -Cont MVI. - Replete electrolytes as needed -Continue thiamine supplementation -High risk for refeeding syndrome, continue daily K/mag/Phos/calcium (6) Celiac disease: Plan: -Noncompliant with diet at [facility]. -Also with prior history of lymphocytic colitis related to celiac disease- previously on steroids but not at this time. -Stool studies negative for infection. -Prior abdominal pain appears improved.? From gastric mass versus gastritis versus other Lipase negative Continue PPI (7) Supratherapeutic INR: Plan: 2nd to vitamin K deficiency. Patient will require anticoagulation as above, but is high risk for supratherapeutic INR due to nutritional deficiency s/p vitamin k supplementation at admission. (8) GERD (gastroesophageal reflux disease): Plan: Continue PPI IV EGD findings reviewed (9) Prolonged QT interval: (10) Hypothyroid: Plan: TSH mildly elevated on last 3 checks increase synthroid to 50mcg daily repeat TSH 6 weeks (11) Lactose intolerance: Plan: switched to soy products as advised by nutrition (12) Mood disorder: Plan: continue buspar 5 mg bid and Remeron consider increase in remeron to 30mg HS (13) PAF (paroxysmal atrial fibrillation): Plan: 30 minutes of atrial fibrillation during hospitalization several years ago no PAF during this stay (14) Chronic deep vein thrombosis (DVT): Plan: Prior history of DVT see "PVT" above (15) Transaminitis: Plan: CT abd/pelvis with abnormal appearing left lobe of the liver mildly abnormal LFTs trend (16) Elevated alkaline phosphatase level: Plan: 2nd vitamin D deficiency DDx includes osteomalacia Follow,? Improvement with correction of vitamin D level (17) Anemia: Plan: B12, folate, and Fe studies are normal could have micronutrient def leading to anemia - zinc, etc Differential includes anemia of chronic disease (18) Hypokalemia: Plan: ongoing 2nd diarrhea, poor oral intake and can't r/o refeeding syndrome Again low today, patient with some stomach pain. 20 M EQ 3 times daily as tolerated plus KCl riders ordered Magnesium supplementation, patient has been consistently low throughout admission (19) BPH (benign prostatic hyperplasia): Plan: Continue Flomax (20) Hypophosphatemia: Plan: resolved s/p replacement (21) Vitamin D deficiency: Plan: -25-OH vit D level = 11 this admission -Continue calcitriol 1 mcg daily. Using calcitriol for vit D deficiency rather than D3 as the calcitriol will be more readily available due to malabsorption. (22) Pulmonary embolus: Plan: as seen on CT 01/26/21 lifelong anticoagulation will be needed due, hx of PE/rec VTE/thrombus as above (23) Refeeding syndrome: Plan: suspected cont electrolyte replacement and daily labs (24) Lymphocytic colitis: Plan: history of 2018 - confirmed with colonoscopy biopsies at that time took steroids for some period of time biopsies taken as noted above during admission (25) Failure to thrive: Plan: celiac, probable ca, possible lymphocytic colitis Plan: suspect will need SNF level of care post-d/c through the [facility] system Filomena Moreno with case management to check out options w/ [facility] sytem if biopsies return positive for cancer - which is highly likely - strongly recommend palliation; poor candidate for definitive Rx Admission and Anticipated Discharge Date Admission Date: January 15, 2021 Subjective Seen at bedside. Had just recently eaten. Endorses mild increase in pain, same spot as prior. Otherwise no clinical change. Denies shortness of breath, difficulty breathing, chest pain, chest pressure, fever, chills. Denies stiffness in hands today. Review of Systems Review of Systems: Review of systems negative except as noted in subjective Physical Exam Physical Exam: General: Frail, cachectic appearing male. Chronically ill, does not appear acutely toxic. Alert and oriented x3. HEENT: Atraumatic, normocephalic. Pupils equal and reactive to light. Extraocular movements intact without nystagmus. Visual acuity and hearing grossly intact. Pulm: Diminished without overt wheezes/rales. Trace crackles in the bases. Symmetrical chest rise. No increase work of breathing. No respiratory distress. Cardiac: RRR, -mrg. Radial pulses intact and symmetrical. Abdominal: Mild epigastric/right upper tenderness without rebound/peritoneal signs. Abdomen otherwise nontender nondistended, soft. BS present. Extremities: Thin. Sensation to soft touch intact in hands and feet bilaterally without asymmetry. Results & Data Results & Data ([facility]) Vital Signs (Past 12 Hours) Vital Signs Temp Pulse Resp BP Pulse Ox 01/31/21 16:23 36.5 C 93 H 16 92/60 L 92 01/31/21 06:28 36.4 C L 114 H 16 92/62 L 98 PG Care Time/CCT Total # of Minutes Spent Total Time Spent with Patient: Total time spent is greater than 50% in coordination of care (as documented) at patient's floor/unit and/or counseling patient: Coding Level of Care Code 93904 Subseq Hosp Care Lvl 3 Diagnoses Gastric mass K31.[address] of the abdomen R93.5 PVT (portal vein thrombosis) I81 Hypocalcemia E83.51 Severe protein-calorie malnutrition E43 Celiac disease K90.0 Supratherapeutic INR R79.1 GERD (gastroesophageal reflux disease) K21.9 Prolonged QT interval R94.31 Hypothyroid E03.9 Lactose intolerance E73.9 Mood disorder F39 PAF (paroxysmal atrial fibrillation) I48.0 Chronic deep vein thrombosis (DVT) I82.509 Transaminitis R74.01 Elevated alkaline phosphatase level R74.8 Anemia D64.9 Anemia type: unspecified type Hypokalemia E87.6 BPH (benign prostatic hyperplasia) N40.0 Hypophosphatemia E83.39 Vitamin D deficiency E55.9 Pulmonary embolus I26.99 Refeeding syndrome E87.8 Lymphocytic colitis K52.832 Failure to thrive R62.7 Failure to thrive age range: in adult (1) Anemia Anemia type: unspecified type Qualified Code(s): D64.9 - Anemia, unspecified (2) Failure to thrive Failure to thrive age range: in adult Qualified Code(s): R62.7 - Adult failure to thrive
[2021-01-31] MEDS: MIRTAZAPINE SOLTAB 15 MG PO SCH (19:47)
[2021-01-31] MEDS: POTASSIUM CHLORIDE 20 MEQ/15 ML UDC PO SCH (19:49)
[2021-02-01] MEDS: HEPARIN SODIUM/DEXTROSE 25,000 UNITS/500 ML BAG IV SCH (00:06)
[2021-02-01] MEDS ORDERED: SIMETHICONE 40 MG/0.6 ML 30ML PO ONE (01:30)
[2021-02-01] MEDS ORDERED: SIMETHICONE 80 MG CHEW PO ONE (01:45)
[2021-02-01] MEDS: LEVOTHYROXINE SODIUM 50 MCG TABLET PO SCH (05:49)
[2021-02-01 07:14] LABS: Partial Thromboplastin Ratio 1.8
[2021-02-01] MEDS: busPIRone 5 MG TAB PO SCH ×2 (08:30→19:48)
[2021-02-01] MEDS: PANTOprazole 40 MG in SYRINGE 0 ML IV SCH ×2 (08:30→19:45)
[2021-02-01] MEDS: LACTASE 3000 UNIT TAB PO SCH ×3 (08:31→17:36)
[2021-02-01] MEDS: ZINC SULFATE 220 MG CAPSULE PO SCH (08:31)
[2021-02-01] MEDS: CALCITRIOL 0.25 MCG CAPSULE PO SCH (08:31)
[2021-02-01] MEDS: MAGNESIUM OXIDE 400 MG TAB PO SCH ×2 (08:31→19:49)
[2021-02-01] MEDS: THIAMINE HCL 100 MG TAB PO SCH ×2 (08:32→19:47)
[2021-02-01] MEDS: TAMSULOSIN HCL 0.4 MG CAP PO SCH ×2 (08:32→19:46)
[2021-02-01] MEDS: PANCREAZE (LIPASE 10,500U) CAP PO SCH ×3 (08:32→17:36)
[2021-02-01] MEDS: CEROVITE ADV FORMULA TAB PO SCH (08:32)
[2021-02-01] MEDS: FLUTICASONE FUROATE 200MCG 14 PUFFS/INHALER INH SCH (08:33)
[2021-02-01] MEDS: CALCIUM CARBONATE 1,250 MG/5 ML UDC PO SCH ×2 (08:33→17:36)
[2021-02-01] MEDS: POTASSIUM CHLORIDE 20 MEQ/15 ML UDC PO SCH ×3 (08:33→19:47)
[2021-02-01] MEDS ORDERED: CHOLECALCIFEROL 1,000 UNITS 25 MCG TAB PO SCH (09:00)
[2021-02-01] MEDS: COLESTIPOL HCL 1 GM TAB PO SCH (10:52)
--- NOTE | 2021-02-01 15:06 | Hospitalist Progress Note ---
Date of Service February 01, 2021 Assessment & Plan (1) Gastric mass: Plan: Rikki DUBOSE is a chronically ill, severely malnourished 60-year-old male with past medical history of A. fib, DVT, GERD, and severe hypocalcemia/hypercalcemia, hypomagnesemia with a family history of gastric cancer who presented with hypoglycemia and tetany, abdominal pain, and weight loss. He has history of celiac disease with which she is diet noncompliant, during admission he was also noticed to have a gastric mass which is highly suspicious for gastric cancer. Biopsy was obtained, results remain pending. -Disposition planning: Patient remains malnourished with severe chronic illness. Discussed with case management. Patient will likely require palliative care discharge and would likely benefit from discharge to SNF. [facility] not able to be made hospice, he may be discharged to their facility and then they decide/provide referrals and care with potential transfer to SNF from there. Despite aggressive electrolyte repletion patient remains hypokalemic, and while tetany has resolved and calcium levels have improved remains somewhat hypocalcemic. Repletion has been limited by oral tolerance/stomach upset. Daily labs pending, additional potassium/magnesium repletion being given today. Gastric mass - CT-A/P: Thrombus involving some of the left portal veins. There is also portal venous gas adjacent to these areas of thrombus within the left hepatic lobe which demonstrates heterogeneous enhancement. This could be seen in the setting of an emphysematous hepatitis or possibly related to portal venous gas in the setting of ischemic bowel. However, there is no definite pneumoperitoneum or pneumatosis identified. Thickened and edematous distal esophagus and stomach suggesting a nonspecific gastritis. Multiple distended and fluid-filled loops of large and small bowel seen throughout the abdomen. No clear transition point to suggest an obstruction. Therefore, this favors a diarrheal illness/gastritis or ileus. Small left pleural effusion. Right lower lobe subsegmental pulmonary embolus. No adenopathy, - EGD: Moderate mucosal changes with congestion, erythema, erosion, and nodularity in lower third of the esophagus. Large infiltrative mass with oozing bleeding in gastric body. Decreased folds in the duodenum, flattening of entire duodenum with scalloped mucosa. Biopsies taken. Colonoscopy: Normal terminal ileum, colon examined portion appeared normal, no observed rectum or anal abnormalities - DDx gastric ca/lymphompa less likely MALT Biopsy results: A. Duodenum, biopsy: - Duodenal mucosa with complete villous blunting and increased intraepithelial lymphocytes. B. Stomach, (apparent mass), biopsy: - Benign appearing mucosa with minimal chronic inflammation. - Correlation with clinical findings is recommended. C. Esophagus, biopsy: - Ulcer. - GMS stain for fungal organisms: Negative. - HSV 1/2 immunohistochemistry: No definitive staining present. - Cytomegalovirus immunohistochemistry: No definitive staining present. - Columnar/gastric type mucosa present. - Negative for intestinal metaplasia and dysplasia. Normal biopsy results somewhat unexpected, although patient did not have adenopathy on CT. Infiltrative mass was appreciated on EGD,? Mucosal biopsy did not capture deeper malignancy. Pending discussion with GI on whether patient would benefit/should have a EUS/needle biopsy to further characterize being that patient does clearly expressed he would want diagnostic work-up with potential chemotherapy, even considering his severe underlying medical frailty. Patient requires anticoagulation for DVT, in the setting of his severe nutritional deficiency he is high risk and warfarin is likely inappropriate due to his nutritional fluctuations and history of severe supra therapeutic INR. DOACs not recommended due to gastric/small bowel absorption and exclusion from studies; discussed with Dr. Klein. Recommend Lovenox 60mg SQ daily for th erapeutic anticoagulation. Will transition from heparin gtt Family history of gastric cancer Patient with intermittent stomach upset (2) Abnormal CT of the abdomen: Plan: - 01/26 CT a/p - portal venous gas seen but no free air; no pneumatosis. -DDx unclear, transient ischemia versus infectious versus other - CT-A/P: Thrombus involving some of the left portal veins. There is also portal venous gas adjacent to these areas of thrombus within the left hepatic lobe which demonstrates heterogeneous enhancement. This could be seen in the setting of an emphysematous hepatitis or possibly related to portal venous gas in the setting of ischemic bowel. However, there is no definite pneumoperitoneum or pneumatosis identified. 2. Thickened and edematous distal esophagus and stomach suggesting a nonspecific gastritis. 3. Multiple distended and fluid-filled loops of large and small bowel seen throughout the abdomen. No clear transition point to suggest an obstruction. Therefore, this favors a diarrheal illness/gastritis or ileus. 4. Small left pleural effusion. 5. Right lower lobe subsegmental pulmonary embolus. -General surgery consulted GI consulted. No intervention at this time for portal vein gas. (3) PVT (portal vein thrombosis): Plan: CT as noted above Suspect hypercoagulability in the setting of malignancy Heparin GTT --> Lovenox as above (4) Hypocalcemia: Plan: Improving Presented with severe hypocalcemia and tetany -Continue calcitriol 1 mcg daily. Using calcitriol for vit D deficiency rather than D3 as the calcitriol will be more readily available due to malabsorption. - Continue calcium carbonate 1250 mg twice daily. -Trend electrolytes daily (5) Severe protein-calorie malnutrition: Plan: - 2nd to uncontrolled celiac disease and now the suspected gastric ca. biopsies pending. - can't rule out a return of his microscopic colitis - colonic biopsies pending. - Records indicate a past h/o microscopic colitis in 2018 requiring steroids. -Cont MVI. - Replete electrolytes as needed -Continue thiamine supplementation -High risk for refeeding syndrome, continue daily K/mag/Phos/calcium (6) Celiac disease: Plan: -[facility] -Also with prior history of lymphocytic colitis related to celiac disease- previously on steroids but not at this time. -Stool studies negative for infection. -Prior abdominal pain appears improved.? From gastric mass versus gastritis versus other Lipase negative Continue PPI (7) Supratherapeutic INR: Plan: 2nd to vitamin K deficiency. Patient will require anticoagulation as above, but is high risk for supratherapeutic INR due to nutritional deficiency s/p vitamin k supplementation at admission. (8) GERD (gastroesophageal reflux disease): Plan: Continue PPI IV EGD findings reviewed (9) Prolonged QT interval: (10) Hypothyroid: Plan: TSH mildly elevated on last 3 checks increase synthroid to 50mcg daily repeat TSH 6 weeks (11) Lactose intolerance: Plan: switched to soy products as advised by nutrition (12) Mood disorder: Plan: continue buspar 5 mg bid and Remeron consider increase in remeron to 30mg HS (13) PAF (paroxysmal atrial fibrillation): Plan: 30 minutes of atrial fibrillation during hospitalization several years ago no PAF during this stay (14) Chronic deep vein thrombosis (DVT): Plan: Prior history of DVT see "PVT" above (15) Transaminitis: Plan: CT abd/pelvis with abnormal appearing left lobe of the liver mildly abnormal LFTs trend (16) Elevated alkaline phosphatase level: Plan: 2nd vitamin D deficiency DDx includes osteomalacia Follow,? Improvement with correction of vitamin D level (17) Anemia: Plan: B12, folate, and Fe studies are normal could have micronutrient def leading to anemia - zinc, etc Differential includes anemia of chronic disease (18) Hypokalemia: Plan: ongoing 2nd diarrhea, poor oral intake and can't r/o refeeding syndrome K riders ordered and potassium increased care as ordered and repletion increased. Additional magnesium repletion ordered as remains critically low. (19) BPH (benign prostatic hyperplasia): Plan: Continue Flomax (20) Hypophosphatemia: Plan: resolved s/p replacement (21) Vitamin D deficiency: Plan: -25-OH vit D level = 11 this admission -Continue calcitriol 1 mcg daily. Using calcitriol for vit D deficiency rather than D3 as the calcitriol will be more readily available due to malabsorption. (22) Pulmonary embolus: Plan: as seen on CT 01/26/21 lifelong anticoagulation will be needed due, hx of PE/rec VTE/thrombus as above (23) Refeeding syndrome: Plan: suspected cont electrolyte replacement and daily labs (24) Lymphocytic colitis: Plan: history of 2018 - confirmed with colonoscopy biopsies at that time took steroids for some period of time biopsies taken as noted above during admission (25) Failure to thrive: Plan: celiac, probable ca, possible lymphocytic colitis Plan: suspect will need SNF level of care [facility]-d[facility]c [facility] Filomena oMreno with case management to check out options w/ jail sytem Admission and Anticipated Discharge Date Admission Date: January 15, 2021 Subjective Seen at bedside. Continues to have some stomach discomfort today. Loose bowel movement today. Is hungry, would like soup. No other questions or concerns. Reviewed biopsy results. Patient reports that if it had been cancer he would absolutely want to have an oncologic evaluation and potentially consider chemotherapy, even though he is very weak and malnourished and that this could have a substantial impact on his quality of life. Review of Systems Review of Systems: Review of systems negative except as noted in subjective Physical Exam Physical Exam: General: Frail, cachectic appearing male. Chronically ill, does not appear acutely toxic. Alert and oriented x3. HEENT: Atraumatic, normocephalic. Pupils equal and reactive to light. Extraocular movements intact without nystagmus. Visual acuity and hearing grossly intact. Pulm: Diminished without overt wheezes/rales. Trace crackles in the bases. Symmetrical chest rise. No increase work of breathing. No respiratory distress. Cardiac: RRR, -mrg. Radial pulses intact and symmetrical. Abdominal: Mild epigastric/right upper tenderness without rebound/peritoneal signs. Abdomen otherwise nontender nondistended, soft. BS present. Extremities: Thin. Sensation to soft touch intact in hands and feet bilaterally without asymmetry. Results & Data Results & Data ([facility]) Vital Signs (Past 12 Hours) Vital Signs Temp Pulse Resp BP Pulse Ox 02/01/21 07:28 36.7 C 87 18 96/68 L 99 PG Care Time/CCT Total # of Minutes Spent Total Time Spent with Patient: Total time spent is greater than 50% in coordination of care (as documented) at patient's floor/unit and/or counseling patient: Coding Level of Care Code 07486 Subseq Hosp Care Lvl 3 Diagnoses Gastric mass K31.[address] of the abdomen R93.5 PVT (portal vein thrombosis) I81 Hypocalcemia E83.51 Severe protein-calorie malnutrition E43 Celiac disease K90.0 Supratherapeutic INR R79.1 GERD (gastroesophageal reflux disease) K21.9 Prolonged QT interval R94.31 Hypothyroid E03.9 Lactose intolerance E73.9 Mood disorder F39 PAF (paroxysmal atrial fibrillation) I48.0 Chronic deep vein thrombosis (DVT) I82.509 Transaminitis R74.01 Elevated alkaline phosphatase level R74.8 Anemia D64.9 Anemia type: unspecified type Hypokalemia E87.6 BPH (benign prostatic hyperplasia) N40.0 Hypophosphatemia E83.39 Vitamin D deficiency E55.9 Pulmonary embolus I26.99 Refeeding syndrome E87.8 Lymphocytic colitis K52.832 Failure to thrive R62.7 Failure to thrive age range: in adult (1) Anemia Anemia type: unspecified type Qualified Code(s): D64.9 - Anemia, unspecified (2) Failure to thrive Failure to thrive age range: in adult Qualified Code(s): R62.7 - Adult failure to thrive
[2021-02-01] MEDS: POTASSIUM CHLORIDE / WTR 10 MEQ/100 ML PLCT IV SCH ×4 (15:25→19:45)
[2021-02-01] MEDS: MAGNESIUM SULFATE / D5W 1 GM/100 ML BAG IV SCH ×2 (15:26→17:32)
[2021-02-01] MEDS: MIRTAZAPINE SOLTAB 15 MG PO SCH (19:48)
[2021-02-01] MEDS: FOLIC ACID 1 MG in SYRINGE 9.8 ML IV SCH (19:49)
[2021-02-02] MEDS: LEVOTHYROXINE SODIUM 50 MCG TABLET PO SCH (06:16)
[2021-02-02 06:45] LABS: Basophils # (auto) 0.06 K/uL (0-0.2); Eosinophils # (auto) 0.15 K/uL (0-0.5); Eosinophils % (auto) 2.5 %; Hematocrit (blood only) 29.3 % (42-52); Hemoglobin 9.7 g/dL (14.0-18.0); Immature Granulocytes # (auto) 0.01 K/uL (0.00-0.02); Immature Granulocytes % (auto) 0.2 %; Lymphocytes # (auto) 1.42 K/uL (1.2-3.4); Mean Corpuscular Hemoglobin 34.4 pg (25-34); Mean Corpuscular Hgb Conc 33.1 g/dL (32-36); Mean Corpuscular Volume 103.9 fL (80-100); Mean Platelet Volume 10.3 fL (7.4-10.4); Monocytes # (auto) 0.46 K/uL (0.11-0.59); Monocytes % (auto) 7.8 %; Neutrophils # (auto) 3.81 K/uL (1.4-6.5); Neutrophils % (auto) 64.5 %; Nucleated RBC # (auto) 0.06 K/uL (0-0); Platelet Count 618 K/uL (130-400); RDW Coefficient of Variation 16.6 % (11.5-14.5); RDW Standard Deviation 61.2 fL (36.4-46.3); Red Blood Count 2.82 M/uL (4.7-6.1); White Blood Count 5.91 K/uL (4.8-10.8)
[2021-02-02 07:07] LABS: Partial Thromboplastin Ratio 1.9
[2021-02-02 07:08] LABS: Partial Thromboplastin Time 49.3 Seconds (21.0-31.0)
[2021-02-02] MEDS: LACTASE 3000 UNIT TAB PO SCH ×3 (07:50→17:33)
[2021-02-02] MEDS: CALCIUM CARBONATE 1,250 MG/5 ML UDC PO SCH ×2 (07:51→17:59)
[2021-02-02] MEDS: PANCREAZE (LIPASE 10,500U) CAP PO SCH ×3 (07:52→17:32)
[2021-02-02] MEDS: PANTOprazole 40 MG in SYRINGE 0 ML IV SCH ×2 (07:53→21:36)
[2021-02-02 08:02] LABS: Albumin Globulin Ratio 0.4 (0.9-2); Albumin Level 1.5 gm/dl (3.4-5.0); BUN Creatinine Ratio 17.9 (10-20); Bilirubin,Total 0.3 mg/dl (0.2-1); Creatinine Clr Calc Pharmacy 93.5 ml/min; Est GFR (African American) 133.5 ml/min; Est GFR (Non-African American) 115.2 ml/min; Globulin 4.1 gm/dl (2.5-4.0); Magnesium 1.7 mg/dl (1.8-2.4); Potassium 3.3 mmol/L (3.5-5.1); Total Protein 5.6 gm/dl (6.4-8.2)
[2021-02-02] MEDS: ZINC SULFATE 220 MG CAPSULE PO SCH (08:33)
[2021-02-02] MEDS: busPIRone 5 MG TAB PO SCH ×2 (08:33→21:35)
[2021-02-02] MEDS: FLUTICASONE FUROATE 200MCG 14 PUFFS/INHALER INH SCH (08:34)
[2021-02-02] MEDS: CEROVITE ADV FORMULA TAB PO SCH (08:35)
[2021-02-02] MEDS: POTASSIUM CHLORIDE 20 MEQ/15 ML UDC PO SCH ×3 (08:35→21:34)
[2021-02-02] MEDS: TAMSULOSIN HCL 0.4 MG CAP PO SCH ×2 (08:35→21:35)
[2021-02-02] MEDS: THIAMINE HCL 100 MG TAB PO SCH ×2 (08:36→21:37)
[2021-02-02] MEDS: HEPARIN SODIUM/DEXTROSE 25,000 UNITS/500 ML BAG IV SCH (08:47)
[2021-02-02] MEDS: MAGNESIUM OXIDE 400 MG TAB PO SCH ×2 (08:49→21:35)
[2021-02-02] MEDS: POTASSIUM CHLORIDE / WTR 10 MEQ/100 ML PLCT IV SCH ×3 (09:58→13:16)
[2021-02-02] MEDS: CALCITRIOL 0.25 MCG CAPSULE PO SCH (09:59)
[2021-02-02] MEDS: COLESTIPOL HCL 1 GM TAB PO SCH (09:59)
--- NOTE | 2021-02-02 11:28 | Communication Note ---
Date of Service: February 02, 2021 Reviewed EGD and colonoscopy reports, pathology findings. EGD suspicious for malignant gastric tumor in gastric body but biopsy showed chronic inflammation. Recommend EUS evaluation to r/o underlaying malignancy. Will plan on this procedure on Monday 02/05. Please keep pt NPO at midnight the day before. EGD: - Congested, erythematous, eroded, nodular mucosa in the esophagus. Biopsied. 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 - Duodenal mucosal changes seen, diagnostic of celiac disease. Biopsied. Colonoscopy: normal exam FINAL DIAGNOSIS A. Duodenum, biopsy: - Duodenal mucosa with complete villous blunting and increased intraepithelial lymphocytes. - See comment. B. Stomach, (apparent mass), biopsy: - Benign appearing mucosa with minimal chronic inflammation. - Correlation with clinical findings is recommended. C. Esophagus, biopsy: - Ulcer. - GMS stain for fungal organisms: Negative. - HSV 1/2 immunohistochemistry: No definitive staining present. - Cytomegalovirus immunohistochemistry: No definitive staining present. - Columnar/gastric type mucosa present. - Negative for intestinal metaplasia and dysplasia. D. Colon, random, biopsy: - No diagnostic abnormality. Comment: The findings suggest celiac disease in the appropriate clinical setting. Other associated conditions include medication injury (especially olmesartan and related angiotensin II receptor blockers), infections and immune mediated disorders. Correlation with celiac disease associated serological and/ or genetic studies is suggested.
--- NOTE | 2021-02-02 13:37 | Hospitalist Progress Note ---
Date of Service February 02, 2021 Assessment & Plan (1) Gastric mass: Plan: Rikki Pascual is a chronically ill, severely malnourished 60-year-old male with past medical history of A. fib, DVT, GERD, and severe hypocalcemia/hypercalcemia, hypomagnesemia with a family history of gastric cancer who presented with hypoglycemia and tetany, abdominal pain, and weight loss. He has history of celiac disease with which she is diet noncompliant, during admission he was also noticed to have a gastric mass which is highly suspicious for gastric cancer. Biopsy was obtained, results remain pending. Gastric mass - CT-A/P: Thrombus involving some of the left portal veins. There is also portal venous gas adjacent to these areas of thrombus within the left hepatic lobe which demonstrates heterogeneous enhancement. This could be seen in the setting of an emphysematous hepatitis or possibly related to portal venous gas in the setting of ischemic bowel. However, there is no definite pneumoperitoneum or pneumatosis identified. Thickened and edematous distal esophagus and stomach suggesting a nonspecific gastritis. Multiple distended and fluid-filled loops of large and small bowel seen throughout the abdomen. No clear transition point to suggest an obstruction. Therefore, this favors a diarrheal illness/gastritis or ileus. Small left pleural effusion. Right lower lobe subsegmental pulmonary embolus. No adenopathy, - EGD: Moderate mucosal changes with congestion, erythema, erosion, and nodularity in lower third of the esophagus. Large infiltrative mass with oozing bleeding in gastric body. Decreased folds in the duodenum, flattening of entire duodenum with scalloped mucosa. Biopsies taken. Colonoscopy: Normal terminal ileum, colon examined portion appeared normal, no observed rectum or anal abnormalities - 02/02: Discussed w/ GI. Given appearance on EGD and on review of images recommend patient have a EUS+biopsy. This can be scheduled for this Monday. Pt will need to remain inpatient for this, not able to discharge to [facility] and return for procedure as outpatient status for this. Results will take several days to come back, patient does not need to remain inpatient for this and anticipate outpatient follow-up. Biopsy results: A. Duodenum, biopsy: - Duodenal mucosa with complete villous blunting and increased intraepithelial lymphocytes. B. Stomach, (apparent mass), biopsy: - Benign appearing mucosa with minimal chronic inflammation. - Correlation with clinical findings is recommended. C. Esophagus, biopsy: - Ulcer. - GMS stain for fungal organisms: Negative. - HSV 1/2 immunohistochemistry: No definitive staining present. - Cytomegalovirus immunohistochemistry: No definitive staining present. - Columnar/gastric type mucosa present. - Negative for intestinal metaplasia and dysplasia. Normal biopsy results somewhat unexpected, although patient did not have adenopathy on CT. Infiltrative mass was appreciated on EGD,? Mucosal biopsy did not capture deeper malignancy. Pending discussion with GI on whether patient would benefit/should have a EUS/needle biopsy to further characterize being that patient does clearly expressed he would want diagnostic work-up with potential chemotherapy, even considering his severe underlying medical frailty. Patient requires anticoagulation for DVT, in the setting of his severe nutritional deficiency he is high risk and warfarin is likely inappropriate due to his nutritional fluctuations and history of severe supra therapeutic INR. DOACs not recommended due to gastric/small bowel absorption and exclusion from studies; discussed with Dr. Klein. Recommend Lovenox 60mg SQ daily for therapeutic anticoagulation. Will transition from heparin gtt following EUS/at discharge. Family history of gastric cancer Patient with intermittent stomach upset (2) Abnormal CT of the abdomen: Plan: - 01/26 CT a/p - portal venous gas seen but no free air; no pneumatosis. -DDx unclear, transient ischemia versus infectious versus other - CT-A/P: Thrombus involving some of the left portal veins. There is also portal venous gas adjacent to these areas of thrombus within the left hepatic lobe which demonstrates heterogeneous enhancement. This could be seen in the setting of an emphysematous hepatitis or possibly related to portal venous gas in the setting of ischemic bowel. However, there is no definite pneumoperitoneum or pneumatosis identified. 2. Thickened and edematous distal esophagus and stomach suggesting a nonspecific gastritis. 3. Multiple distended and fluid-filled loops of large and small bowel seen throughout the abdomen. No clear transition point to suggest an obstruction. Therefore, this favors a diarrheal illness/gastritis or ileus. 4. Small left pleural effusion. 5. Right lower lobe subsegmental pulmonary embolus. -General surgery consulted GI consulted. No intervention at this time for portal vein gas. (3) PVT (portal vein thrombosis): Plan: CT as noted above Suspect hypercoagulability in the setting of malignancy Heparin GTT --> Lovenox as above (4) Hypocalcemia: Plan: Improving Presented with severe hypocalcemia and tetany -Continue calcitriol 1 mcg daily. Using calcitriol for vit D deficiency rather than D3 as the calcitriol will be more readily available due to malabsorption. - Continue calcium carbonate 1250 mg twice daily. -Trend electrolytes daily (5) Severe protein-calorie malnutrition: Plan: - 2nd to uncontrolled celiac disease and now the suspected gastric ca. biopsies pending. - can't rule out a return of his microscopic colitis - colonic biopsies pending. - Records indicate a past h/o microscopic colitis in 2018 requiring steroids. -Cont MVI. - Replete electrolytes as needed -Continue thiamine supplementation -High risk for refeeding syndrome, continue daily K/mag/Phos/calcium (6) Celiac disease: Plan: -Noncompliant with diet at [facility]. -Also with prior history of lymphocytic colitis related to celiac disease- previously on steroids but not at this time. -Stool studies negative for infection. -Prior abdominal pain appears improved.? From gastric mass versus gastritis versus other Lipase negative Continue PPI (7) Supratherapeutic INR: Plan: 2nd to vitamin K deficiency. Patient will require anticoagulation as above, but is high risk for supratherapeutic INR due to nutritional deficiency s/p vitamin k supplementation at admission. (8) GERD (gastroesophageal reflux disease): Plan: Continue PPI EGD as above (9) Prolonged QT interval: (10) Hypothyroid: Plan: TSH mildly elevated on last 3 checks increase synthroid to 50mcg daily repeat TSH 6 weeks (11) Lactose intolerance: Plan: switched to soy products as advised by nutrition (12) Mood disorder: Plan: continue buspar 5 mg bid and Remeron consider increase in remeron to 30mg HS (13) PAF (paroxysmal atrial fibrillation): Plan: 30 minutes of atrial fibrillation during hospitalization several years ago no PAF during this stay (14) Chronic deep vein thrombosis (DVT): Plan: Prior history of DVT see "PVT" above (15) Transaminitis: Plan: CT abd/pelvis with abnormal appearing left lobe of the liver mildly abnormal LFTs trend (16) Elevated alkaline phosphatase level: Plan: 2nd vitamin D deficiency DDx includes osteomalacia Follow,? Improvement with correction of vitamin D level (17) Anemia: Plan: B12, folate, and Fe studies are normal could have micronutrient def leading to anemia - zinc, etc Differential includes anemia of chronic disease (18) Hypokalemia: Plan: ongoing 2nd diarrhea, poor oral intake and can't r/o refeeding syndrome Continuing to replete, potassium nearly normal today magnesium improved also nearly normal (19) BPH (benign prostatic hyperplasia): Plan: Continue Flomax (20) Hypophosphatemia: Plan: resolved s/p replacement (21) Vitamin D deficiency: Plan: -25-OH vit D level = 11 this admission -Continue calcitriol 1 mcg daily. Using calcitriol for vit D deficiency rather than D3 as the calcitriol will be more readily available due to malabsorption. (22) Pulmonary embolus: Plan: as seen on CT 01/26/21 lifelong anticoagulation will be needed due, hx of PE/rec VTE/thrombus as above (23) Refeeding syndrome: Plan: suspected cont electrolyte replacement and daily labs (24) Lymphocytic colitis: Plan: history of 2018 - confirmed with colonoscopy biopsies at that time took steroids for some period of time biopsies taken as noted above during admission (25) Failure to thrive: Plan: celiac, probable ca, possible lymphocytic colitis Plan: suspect will need [facility] level of care post-d/c through the custodial system Filomena Moreno with case management to check out options w/ custodial sytem Admission and Anticipated Discharge Date Admission Date: January 15, 2021 Subjective Reviewed case with patient and GI today. Due to appearance on EGD discussed with GI EUS with biopsy is recommended. This can be performed on Monday. Patient is otherwise progressing well, unfortunately in order to keep this EUS slot patient will need to remain inpatient. He is not able to be discharged to the custodial and to return on Monday for EUS as outpatient status. Discussed with patient that he will be discharged as long as he is stable after this procedure, and that the results will not be available likely for several days to a week. The follow-up and plan for the results would be on outpatient follow-up and with oncology if positive. Patient will is agreeable to this. Review of Systems Review of Systems: All systems reviewed & are unremarkable except as noted in Subjective Physical Exam Physical Exam: General: Frail, cachectic appearing male. Chronically ill, does not appear acutely toxic. Alert and oriented x3. HEENT: Atraumatic, normocephalic. Pupils equal and reactive to light. Extraocular movements intact without nystagmus. Visual acuity and hearing grossly intact. Pulm: Symmetrical chest rise. No increase work of breathing. No respiratory distress. Cardiac: RRR, -mrg. Radial pulses intact and symmetrical. Abdominal: No abdominal pain today, no pain with lunch which he is eating at time of visit. Abdomen otherwise nontender nondistended, soft. BS present. Extremities: Thin. Moving all extremities equally, no apparent tetany today. Results & Data Results & Data ([facility]) Vital Signs (Past 12 Hours) Vital Signs Temp Pulse Resp BP Pulse Ox 02/02/21 07:41 36.4 C L 85 18 91/60 L 99 PG Care Time/CCT Total # of Minutes Spent Total Time Spent with Patient: Total time spent is greater than 50% in coordination of care (as documented) at patient's floor/unit and/or counseling patient: Coding Level of Care Code 15781 Subseq Hosp Care Lvl 2 Diagnoses Gastric mass K31.[address] of the abdomen R93.5 PVT (portal vein thrombosis) I81 Hypocalcemia E83.51 Severe protein-calorie malnutrition E43 Celiac disease K90.0 Supratherapeutic INR R79.1 GERD (gastroesophageal reflux disease) K21.9 Prolonged QT interval R94.31 Hypothyroid E03.9 Lactose intolerance E73.9 Mood disorder F39 PAF (paroxysmal atrial fibrillation) I48.0 Chronic deep vein thrombosis (DVT) I82.509 Transaminitis R74.01 Elevated alkaline phosphatase level R74.8 Anemia D64.9 Anemia type: unspecified type Hypokalemia E87.6 BPH (benign prostatic hyperplasia) N40.0 Hypophosphatemia E83.39 Vitamin D deficiency E55.9 Pulmonary embolus I26.99 Refeeding syndrome E87.8 Lymphocytic colitis K52.832 Failure to thrive R62.7 Failure to thrive age range: in adult (1) Anemia Anemia type: unspecified type Qualified Code(s): D64.9 - Anemia, unspecified (2) Failure to thrive Failure to thrive age range: in adult Qualified Code(s): R62.7 - Adult failure to thrive
[2021-02-02] MEDS: MIRTAZAPINE SOLTAB 15 MG PO SCH (21:35)
[2021-02-02] MEDS: FOLIC ACID 1 MG in SYRINGE 9.8 ML IV SCH (21:36)
[2021-02-03] MEDS: LEVOTHYROXINE SODIUM 50 MCG TABLET PO SCH (05:51)
[2021-02-03] MEDS: CALCITRIOL 0.25 MCG CAPSULE PO SCH (08:02)
[2021-02-03] MEDS: ZINC SULFATE 220 MG CAPSULE PO SCH (08:03)
[2021-02-03] MEDS: CEROVITE ADV FORMULA TAB PO SCH (08:03)
[2021-02-03] MEDS: TAMSULOSIN HCL 0.4 MG CAP PO SCH ×2 (08:04→20:26)
[2021-02-03] MEDS: busPIRone 5 MG TAB PO SCH ×2 (08:04→20:26)
[2021-02-03] MEDS: THIAMINE HCL 100 MG TAB PO SCH ×2 (08:05→22:17)
[2021-02-03] MEDS: LACTASE 3000 UNIT TAB PO SCH ×3 (08:06→16:29)
[2021-02-03] MEDS: MAGNESIUM OXIDE 400 MG TAB PO SCH (08:06)
[2021-02-03] MEDS: PANCREAZE (LIPASE 10,500U) CAP PO SCH ×3 (08:07→16:29)
[2021-02-03] MEDS: CALCIUM CARBONATE 1,250 MG/5 ML UDC PO SCH ×2 (08:08→16:30)
[2021-02-03] MEDS: POTASSIUM CHLORIDE 20 MEQ/15 ML UDC PO SCH ×4 (08:08→18:16)
[2021-02-03] MEDS: FLUTICASONE FUROATE 200MCG 14 PUFFS/INHALER INH SCH (08:09)
[2021-02-03 08:25] LABS: Partial Thromboplastin Ratio 1.6; Partial Thromboplastin Time 41.8 Seconds (21.0-31.0)
[2021-02-03 08:55] LABS: BUN Creatinine Ratio 13.6 (10-20); Calcium 7.1 mg/dl (8.5-10.1); Creatinine Clr Calc Pharmacy 84.4 ml/min; Est GFR (African American) 131.4 ml/min; Est GFR (Non-African American) 113.4 ml/min; Magnesium 1.5 mg/dl (1.8-2.4); Potassium 3.6 mmol/L (3.5-5.1)
[2021-02-03] MEDS: COLESTIPOL HCL 1 GM TAB PO SCH (11:31)
[2021-02-03] MEDS: PANTOprazole 40 MG in SYRINGE 0 ML IV SCH ×2 (11:31→22:17)
--- NOTE | 2021-02-03 13:32 | Hospitalist Progress Note ---
Date of Service February 03, 2021 Assessment & Plan (1) Gastric mass: Plan: Rikki Pascual is a chronically ill, severely malnourished 60-year-old male with past medical history of A. fib, DVT, GERD, and severe hypocalcemia/hypercalcemia, hypomagnesemia with a family history of gastric cancer who presented with hypoglycemia and tetany, abdominal pain, and weight loss. He has history of celiac disease with which she is diet noncompliant, during admission he was also noticed to have a gastric mass which is highly suspicious for gastric cancer. Biopsy was obtained, results remain pending. Gastric mass - CT-A/P: Thrombus involving some of the left portal veins. There is also portal venous gas adjacent to these areas of thrombus within the left hepatic lobe which demonstrates heterogeneous enhancement. This could be seen in the setting of an emphysematous hepatitis or possibly related to portal venous gas in the setting of ischemic bowel. However, there is no definite pneumoperitoneum or pneumatosis identified. Thickened and edematous distal esophagus and stomach suggesting a nonspecific gastritis. Multiple distended and fluid-filled loops of large and small bowel seen throughout the abdomen. No clear transition point to suggest an obstruction. Therefore, this favors a diarrheal illness/gastritis or ileus. Small left pleural effusion. Right lower lobe subsegmental pulmonary embolus. No adenopathy, - EGD: Moderate mucosal changes with congestion, erythema, erosion, and nodularity in lower third of the esophagus. Large infiltrative mass with oozing bleeding in gastric body. Decreased folds in the duodenum, flattening of entire duodenum with scalloped mucosa. Biopsies taken. Colonoscopy: Normal terminal ileum, colon examined portion appeared normal, no observed rectum or anal abnormalities - Discussed w/ GI. Given appearance on EGD and on review of images recommend patient have a EUS+biopsy.scheduled for this Monday. Pt will need to remain inpatient for this, not able to discharge to [facility] and return for procedure as outpatient status for this. Results will take several days to come back, patient does not need to remain inpatient for this and anticipate outpatient follow-up. Biopsy results: A. Duodenum, biopsy: - Duodenal mucosa with complete villous blunting and increased intraepithelial lymphocytes. B. Stomach, (apparent mass), biopsy: - Benign appearing mucosa with minimal chronic inflammation. - Correlation with clinical findings is recommended. C. Esophagus, biopsy: - Ulcer. - GMS stain for fungal organisms: Negative. - HSV 1/2 immunohistochemistry: No definitive staining present. - Cytomegalovirus immunohistochemistry: No definitive staining present. - Columnar/gastric type mucosa present. - Negative for intestinal metaplasia and dysplasia. Normal biopsy results somewhat unexpected, although patient did not have adenopathy on CT. Infiltrative mass was appreciated on EGD,? Mucosal biopsy did not capture deeper malignancy. Pending discussion with GI on whether patient would benefit/should have a EUS/needle biopsy to further characterize being that patient does clearly expressed he would want diagnostic work-up with potential chemotherapy, even considering his severe underlying medical frailty. Patient requires anticoagulation for DVT, in the setting of his severe nutritional deficiency he is high risk and warfarin is likely inappropriate due to his nutritional fluctuations and history of severe supra therapeutic INR. DOACs not recommended due to gastric/small bowel absorption and exclusion from studies; discussed with Dr. Klein. Recommend Lovenox 60mg SQ daily for therapeutic anticoagulation. Will transition from heparin gtt following EUS/at discharge. Family history of gastric cancer Patient with intermittent stomach upset (2) Abnormal CT of the abdomen: Plan: - 01/26 CT a/p - portal venous gas seen but no free air; no pneumatosis. -DDx unclear, transient ischemia versus infectious versus other - CT-A/P: Thrombus involving some of the left portal veins. There is also portal venous gas adjacent to these areas of thrombus within the left hepatic lobe w hich demonstrates heterogeneous enhancement. This could be seen in the setting of an emphysematous hepatitis or possibly related to portal venous gas in the setting of ischemic bowel. However, there is no definite pneumoperitoneum or pneumatosis identified. 2. Thickened and edematous distal esophagus and stomach suggesting a nonspecific gastritis. 3. Multiple distended and fluid-filled loops of large and small bowel seen throughout the abdomen. No clear transition point to suggest an obstruction. Therefore, this favors a diarrheal illness/gastritis or ileus. 4. Small left pleural effusion. 5. Right lower lobe subsegmental pulmonary embolus. -General surgery consulted GI consulted. No intervention at this time for portal vein gas. (3) PVT (portal vein thrombosis): Plan: CT as noted above Suspect hypercoagulability in the setting of malignancy Heparin GTT --> Lovenox as above (4) Hypocalcemia: Plan: Improved Presented with severe hypocalcemia and tetany -Continue calcitriol 1 mcg daily. Using calcitriol for vit D deficiency rather than D3 as the calcitriol will be more readily available due to malabsorption. - Continue calcium carbonate 1250 mg twice daily. -Trend electrolytes daily (5) Severe protein-calorie malnutrition: Plan: - 2nd to uncontrolled celiac disease and now the suspected gastric ca. biopsies pending. - can't rule out a return of his microscopic colitis - colonic biopsies pending. - Records indicate a past h/o microscopic colitis in 2018 requiring steroids. -Cont MVI. - Replete electrolytes as needed -Continue thiamine supplementation -High risk for refeeding syndrome, continue daily K/mag/Phos/calcium (6) Celiac disease: Plan: -[facility]compliant with diet at [facility]. -Also with prior history of lymphocytic colitis related to celiac disease- previously on steroids but not at this time. -Stool studies negative for infection. -Prior abdominal pain appears improved.? From gastric mass versus gastritis versus other Lipase negative Continue PPI (7) Supratherapeutic INR: Plan: 2nd to vitamin K deficiency. Patient will require anticoagulation as above, but is high risk for supratherapeutic INR due to nutritional deficiency s/p vitamin k supplementation at admission. (8) GERD (gastroesophageal reflux disease): Plan: Continue PPI EGD as above (9) Prolonged QT interval: (10) Hypothyroid: Plan: TSH mildly elevated on last 3 checks increase synthroid to 50mcg daily repeat TSH 6 weeks (11) Lactose intolerance: Plan: switched to soy products as advised by nutrition (12) Mood disorder: Plan: continue buspar 5 mg bid and Remeron consider increase in remeron to 30mg HS (13) PAF (paroxysmal atrial fibrillation): Plan: 30 minutes of atrial fibrillation during hospitalization several years ago no PAF during this stay (14) Chronic deep vein thrombosis (DVT): Plan: Prior history of DVT see "PVT" above (15) Transaminitis: Plan: CT abd/pelvis with abnormal appearing left lobe of the liver mildly abnormal LFTs trend (16) Elevated alkaline phosphatase level: Plan: 2nd vitamin D deficiency DDx includes osteomalacia Follow,? Improvement with correction of vitamin D level (17) Anemia: Plan: B12, folate, and Fe studies are normal could have micronutrient def leading to anemia - zinc, etc Differential includes anemia of chronic disease (18) Hypokalemia: Plan: ongoing 2nd diarrhea, poor oral intak Continuing to replete, potassium normal today magnesium improving but remains intermittently low (19) BPH (benign prostatic hyperplasia): Plan: Continue Flomax (20) Hypophosphatemia: Plan: resolved s/p replacement (21) Vitamin D deficiency: Plan: -25-OH vit D level = 11 this admission -Continue calcitriol 1 mcg daily. Using calcitriol for vit D deficiency rather than D3 as the calcitriol will be more readily available due to malabsorption. (22) Pulmonary embolus: Plan: as seen on CT 01/26/21 lifelong anticoagulation will be needed due, hx of PE/rec VTE/thrombus as above (23) Refeeding syndrome: Plan: suspected cont electrolyte replacement and daily labs (24) Lymphocytic colitis: Plan: history of 2018 - confirmed with colonoscopy biopsies at that time took steroids for some period of time biopsies taken as noted above during admission (25) Failure to thrive: Plan: celiac, probable ca, possible lymphocytic colitis Plan: suspect will need [facility] level of care post-d/c through the [facility] system Admission and Anticipated Discharge Date Admission Date: January 15, 2021 Subjective Patient wanted to review information discussed yesterday regarding the biopsy. Reports he would still want to go through with tests, have diagnostic work-up, and treatment if positive. Otherwise no clinical change today, no additional questions at bedside Review of Systems Review of Systems: Review of systems negative except as noted in subjective Physical Exam Physical Exam: General: Frail, cachectic appearing male. Chronically ill, does not appear acutely toxic. Alert and oriented x3. HEENT: Atraumatic, normocephalic. Pupils equal and reactive to light. Extraocular movements intact without nystagmus. Visual acuity and hearing grossly intact. Pulm: Symmetrical chest rise. No increase work of breathing. No respiratory distress. Cardiac: RRR, -mrg. Radial pulses intact and symmetrical. Abdominal: No abdominal pain today, no pain with lunch which he is eating at time of visit. Abdomen otherwise nontender nondistended, soft. BS present. Extremities: Thin. Moving all extremities equally, no apparent tetany today. Results & Data Results & Data ([facility]) Vital Signs (Past 12 Hours) Vital Signs Temp Pulse Resp BP Pulse Ox 02/03/21 07:29 36.4 C L 110 H 20 92/57 L 97 PG Care Time/CCT Total # of Minutes Spent Total Time Spent with Patient: Total time spent is greater than 50% in coordination of care (as documented) at patient's floor/unit and/or counseling patient: Coding Level of Care Code 00080 Subseq Hosp Care Lvl 1 Diagnoses Gastric mass K31.[address] of the abdomen R93.5 PVT (portal vein thrombosis) I81 Hypocalcemia E83.51 Severe protein-calorie malnutrition E43 Celiac disease K90.0 Supratherapeutic INR R79.1 GERD (gastroesophageal reflux disease) K21.9 Prolonged QT interval R94.31 Hypothyroid E03.9 Lactose intolerance E73.9 Mood disorder F39 PAF (paroxysmal atrial fibrillation) I48.0 Chronic deep vein thrombosis (DVT) I82.509 Transaminitis R74.01 Elevated alkaline phosphatase level R74.8 Anemia D64.9 Anemia type: unspecified type Hypokalemia E87.6 BPH (benign prostatic hyperplasia) N40.0 Hypophosphatemia E83.39 Vitamin D deficiency E55.9 Pulmonary embolus I26.99 Refeeding syndrome E87.8 Lymphocytic colitis K52.832 Failure to thrive R62.7 Failure to thrive age range: in adult (1) Anemia Anemia type: unspecified type Qualified Code(s): D64.9 - Anemia, unspecified (2) Failure to thrive Failure to thrive age range: in adult Qualified Code(s): R62.7 - Adult failur e to thrive
[2021-02-03 14:17] LABS: Partial Thromboplastin Ratio 1.5; Partial Thromboplastin Time 38.9 Seconds (21.0-31.0)
[2021-02-03] MEDS: HEPARIN SODIUM/DEXTROSE 25,000 UNITS/500 ML BAG IV SCH ×4 (16:28→22:42)
[2021-02-03] MEDS: MAGNESIUM SULFATE / D5W 1 GM/100 ML BAG IV SCH ×3 (18:17→22:15)
[2021-02-03] MEDS: MIRTAZAPINE SOLTAB 15 MG PO SCH (20:26)
[2021-02-03 21:17] LABS: Partial Thromboplastin Ratio 1.8
[2021-02-03 21:23] LABS: Partial Thromboplastin Time 48.2 Seconds (21.0-31.0)
[2021-02-03] MEDS: FOLIC ACID 1 MG in SYRINGE 9.8 ML IV SCH (22:17)
[2021-02-03] MEDS ORDERED: CALCIUM CARBONATE 500 MG CHEWABLE TAB PO STA (22:50)
[2021-02-04] MEDS: ACETAMINOPHEN 325 MG TAB PO PRN (01:43)
[2021-02-04] MEDS ORDERED: OPTIRAY 320 100ml IV ONE (02:35)
--- NOTE | 2021-02-04 02:59 | Communication Note ---
Date of Service: February 04, 2021 Subjective: Nursing notified me that the patient was having 10/10 abdominal pain. He was in the bathroom and had just had a nonbloody bowel movement. He was having pain that has been progressively worsening over the last day. His speech is garbled and it was difficult to understand him. He walked from the bathroom to the bed without difficulty. Upon re-examination he was in worsening pain, given 2mg Morphine with minimal improvement, heat pads seemed to help. Discussed that his imaging and clinical picture where guarded. Objective: BP 96/64 HR 105 General: Cachexia abd.: subtle guarding, slightly distended abdomen with tenderness to epigastric and slightly throughout the abdomen - upon re examination, more tense A/P: severe abdominal pain concerning for ischemic bowel - ordered CT a/p w/ contrast [facility] called and informed me that additional to findings from prior CT there was pneumatosis vs. ischemic bowel seen on the periphery of the small bowel - Called Dr. Mariee with general surgery who came and evaluated the patient, he did not feel that his case was emergent and that we should connect with the primary surgical team in the morning to re-evaluate the patient - lactate ordered - 3.2 - NPO - NG tube ordered, did not tolerate initially, placed 12 greenlandic on low int. suction. CXR to confirm placement was high, moved and rechecking placement - IVF 125 NSS X1 bag given hypotension, tachycardia, 500 cc bolus added - transferred to PCU - Zosyn started despite allergy, reviewed with pt. and reaction was rash - AM K replacement with 40 k-rider
[2021-02-04 03:07] LABS: Basophils # (auto) 0.03 K/uL (0-0.2); Basophils % (auto) 0.5 %; Eosinophils # (auto) 0.07 K/uL (0-0.5); Eosinophils % (auto) 1.2 %; Hematocrit (blood only) 26.5 % (42-52); Hemoglobin 8.8 g/dL (14.0-18.0); Immature Granulocytes # (auto) 0.01 K/uL (0.00-0.02); Immature Granulocytes % (auto) 0.2 %; Lymphocytes # (auto) 1.66 K/uL (1.2-3.4); Lymphocytes % (auto) 27.3 %; Mean Corpuscular Hemoglobin 34.8 pg (25-34); Mean Corpuscular Volume 104.7 fL (80-100); Mean Platelet Volume 9.9 fL (7.4-10.4); Monocytes # (auto) 0.32 K/uL (0.11-0.59); Monocytes % (auto) 5.3 %; Neutrophils # (auto) 3.98 K/uL (1.4-6.5); Neutrophils % (auto) 65.5 %; Nucleated RBC # (auto) 0.08 K/uL (0-0); Nucleated RBC % (auto) 1.4 %; Platelet Count 631 K/uL (130-400); RDW Coefficient of Variation 16.3 % (11.5-14.5); RDW Standard Deviation 61.1 fL (36.4-46.3); Red Blood Count 2.53 M/uL (4.7-6.1); White Blood Count 6.07 K/uL (4.8-10.8)
[2021-02-04 03:32] LABS: Albumin Globulin Ratio 0.4 (0.9-2); Albumin Level 1.6 gm/dl (3.4-5.0); BUN Creatinine Ratio 13.7 (10-20); Bilirubin,Total 0.1 mg/dl (0.2-1); Calcium 7.2 mg/dl (8.5-10.1); Creatinine Clr Calc Pharmacy 68.8 ml/min; Est GFR (African American) 120.8 ml/min; Est GFR (Non-African American) 104.3 ml/min; Globulin 4.1 gm/dl (2.5-4.0); Potassium 2.9 mmol/L (3.5-5.1); Total Protein 5.7 gm/dl (6.4-8.2)
[2021-02-04] MEDS ORDERED: MoRPHine SULFATE 2 MG/ML CARP IV STA (03:39)
[2021-02-04 03:40] LABS: Partial Thromboplastin Ratio 1.9
[2021-02-04 03:41] LABS: Partial Thromboplastin Time 49.3 Seconds (21.0-31.0)
[2021-02-04 03:52] LABS: Mean Corpuscular Hgb Conc 33.2 g/dL (32-36)
[2021-02-04] MEDS: SODIUM CHLORIDE 0.9% 1000ML 1,000 ML IV SCH ×2 (03:57→07:51)
[2021-02-04] MEDS: LEVOTHYROXINE SODIUM 50 MCG TABLET PO SCH (04:57)
--- NOTE | 2021-02-04 05:38 | Surgery Progress Note ---
Date of Service February 04, 2021 Assessment & Plan (1) PVT (portal vein thrombosis): Plan: pt is a 60 year-old male who was admitted to hospital for gastric mass and portal vein thrombosis, pt developed abdominal pain with vomiting early this morning, pt has portal vein gas since 01/26/2021. Severe protein-calorie malnutrition: The cause of portal venous gas noted on CT scan is unclear. Sometimes this can be seen in the setting of an infectious process or ischemia bowel, Would recommend to correct low K, hold heparin drip now, NG tube, check lactate acid, will contact [facility] consult surgeon team, Admission and Anticipated Discharge Date Admission Date: January 15, 2021 Supervising Physician Co-Signing Physician Notes I have seen and examined the patient with MISTY Holden whose note reflects our findings and plan. EGD and colonoscopy tomorrow. I suspect his symptoms are related to both uncontrolled celiac(non-compliant with diet) and likely recurrent microscopic colitis. Weight loss. Subjective Patient wanted to review information discussed yesterday regarding the biopsy. Reports he would still want to go through with tests, have diagnostic work-up, and treatment if positive. Otherwise no clinical change today, no additional questions at bedside 02/04/2021 5:31AM Dr. Mariee I got a call for evaluate abdominal pain with vomiting, I reviewed pt's H/P, labs, CT scan with pt, this a 60 year-old male who was admitted to hospital for gastric mass, portal vein thrombosis, pt is on heparin IV drip, pt had EGD biopsy gastric mass-pathology report is benign so far, pt developed abdominal pain with no- bloody vomiting- early this morning, the pain is located at RUQ area, pt passed no-bloody stool early this morning, CT scan abd + pelvis ( 01/26/2021)-IMPRESSION: 1. Thrombus involving some of the left portal veins. There is also portal venous gas adjacent to these areas of thrombus within the left hepatic lobe which demonstrates heterogeneous enhancement. This could be seen in the setting of an emphysematous hepatitis or possibly related to portal venous gas in the setting of ischemic bowel. However, there is no definite pneumoperitoneum or pneumatosis identified. 2. Thickened and edematous distal esophagus and stomach suggesting a nonspecific gastritis. 3. Multiple distended and fluid-filled loops of large and small bowel seen throughout the abdomen. No clear transition point to suggest an obstruction. Therefore, this favors a diarrheal illness/gastritis or ileus. 4. Small left pleural effusion. 5. Right lower lobe subsegmental pulmonary embolus. 6. These findings were discussed with Dr. Mishra at 7:23 PM on 01/26/2021. CT scan abd + pelvis ( 02/04/2021)- Impression: there is portal venous gas within the liver as well as gas within mesenteric vein in the central abdomen, gas density along the wall of several small bowel loop in the lower pelvis likely represent pneumatosis, consider bowel ischemia, Physical Exam Constitutional: WD/WN, vitals as above malnutrition Eyes: PERRL, conjunctivae normal, anicteric sclerae Neck: trachea midline, no thyromegaly Respiratory: normal respiratory effort, lungs clear to auscultation Cardiovascular: RRR, no murmur, no edema Gastrointestinal (Abdomen): soft, some tenderness at RUQ, no rebound pain, no distend, BS + Musculoskeletal: no cyanosis or clubbing, extremities motor strength 5/5 Skin: no rashes, warm and dry Neurologic: patellar DTR's 2+ bilat, sensation intact Psychiatric: A+Ox3, euthymic affect Results & Data ([facility]) Vital Signs (Past 12 Hours) Vital Signs Temp Pulse Resp BP Pulse Ox 02/03/21 22:27 36.4 C L 105 H 20 96/64 L 96 Laboratory Results Abnormal lab results 02/03/21 02/03/21 02/03/21 Range/Units 08:01 08:01 13:45 RBC (4.7-6.1) M/uL Hgb (14.0-18.0) g/dL Hct (42-52) % MCV (80-100) fL MCH (25-34) pg RDW Std Deviation (36.4-46.3) fL RDW Coeff of Tevin (11.5-14.5) % Plt Count (130-400) K/uL Absolute Nucleated RBC (0-0) K/uL APTT 41.8 H 38.9 H (21.0-31.0) Seconds Potassium (3.5-5.1) mmol/L Chloride 114 H (98-107) mmol/L Carbon Dioxide 20 L (21-32) mmol/L Creatinine 0.53 L (0.6-1.4) mg/dl Glucose (70-99) mg/dl Calcium 7.1 L (8.5-10.1) mg/dl Magnesium 1.5 L (1.8-2.4) mg/dl Total Bilirubin (0.2-1) mg/dl AST (15-37) U/L Alkaline Phosphatase (45-117) U/L Total Protein (6.4-8.2) gm/dl Albumin (3.4-5.0) gm/dl Globulin (2.5-4.0) gm/dl Albumin/Globulin Ratio (0.9-2) 02/03/21 02/04/21 02/04/21 Range/Units 20:50 02:58 02:58 RBC (4.7-6.1) M/uL Hgb (14.0-18.0) g/dL Hct (42-52) % MCV (80-100) fL MCH (25-34) pg RDW Std Deviation (36.4-46.3) fL RDW Coeff of Tevin (11.5-14.5) % Plt Count (130-400) K/uL Absolute Nucleated RBC (0-0) K/uL APTT 48.2 H* 49.3 H* (21.0-31.0) Seconds Potassium 2.9 L D (3.5-5.1) mmol/L Chloride 111 H (98-107) mmol/L Carbon Dioxide 20 L (21-32) mmol/L Creatinine (0.6-1.4) mg/dl Glucose 137 H (70-99) mg/dl Calcium 7.2 L (8.5-10.1) mg/dl Magnesium (1.8-2.4) mg/dl Total Bilirubin 0.1 L (0.2-1) mg/dl AST 52 H (15-37) U/L Alkaline Phosphatase 363 H (45-117) U/L Total Protein 5.7 L (6.4-8.2) gm/dl Albumin 1.6 L (3.4-5.0) gm/dl Globulin 4.1 H (2.5-4.0) gm/dl Albumin/Globulin Ratio 0.4 L (0.9-2) 02/04/21 Range/Units 02:58 RBC 2.53 L (4.7-6.1) M/uL Hgb 8.8 L (14.0-18.0) g/dL Hct 26.5 L (42-52) % MCV 104.7 H (80-100) fL MCH 34.8 H (25-34) pg RDW Std Deviation 61.1 H (36.4-46.3) fL RDW Coeff of Tevin 16.3 H (11.5-14.5) % Plt Count 631 H (130-400) K/uL Absolute Nucleated RBC 0.08 H (0-0) K/uL APTT (21.0-31.0) Seconds Potassium (3.5-5.1) mmol/L Chloride (98-107) mmol/L Carbon Dioxide (21-32) mmol/L Creatinine (0.6-1.4) mg/dl Glucose (70-99) mg/dl Calcium (8.5-10.1) mg/dl Magnesium (1.8-2.4) mg/dl Total Bilirubin (0.2-1) mg/dl AST (15-37) U/L Alkaline Phosphatase (45-117) U/L Total Protein (6.4-8.2) gm/dl Albumin (3.4-5.0) gm/dl Globulin (2.5-4.0) gm/dl Albumin/Globulin Ratio (0.9-2)
[2021-02-04] MEDS: POTASSIUM CHLORIDE / WTR 10 MEQ/100 ML PLCT IV SCH ×3 (05:50→07:51)
[2021-02-04] MEDS ORDERED: PIPERACILL/TAZOBAC CONSULT ACTIVE PRN (07:07)
[2021-02-04] MEDS ORDERED: SODIUM CHLORIDE 0.9% 1000ML 500 ML IV ONE (07:07)
--- NOTE | 2021-02-04 07:19 | Hospitalist Progress Note ---
Date of Service February 04, 2021 Assessment & Plan (1) Mesenteric ischemia: Plan: Rikki Pascual is a chronically ill, severely malnourished 60-year-old male with past medical history of A. fib, DVT, GERD, and severe hypocalcemia/hypercalcemia, hypomagnesemia with a family history of gastric cancer who presented with hypoglycemia and tetany, abdominal pain, and weight loss. He has history of celiac disease with which she is diet noncompliant, during admission he was also noticed to have a gastric mass which is highly suspicious for gastric cancer. Biopsy was obtained, results normal although in discussion and review GI potentially inadequate sample at its been scheduled for EUS Monday. Patient has had intermittent abdominal pain with tenderness at epigastrium which worsened the evening of 02/03 and subsequent work-up indicative of acute mesenteric ischemia. Goals of Care: Reviewed case with surgery. Patient is medically frail, intermittently hypotensive, with multiple morbidities as below. Given the disease appreciated on repeat CT he is a poor surgical candidate and would likely not survive surgery. This is likely not a survivable for the him. This was discussed with the patient, who had previously wanted additional diagnostic work-up for his suspected cancer and full code status. In revisiting his current symptoms, and discussion of risk/benefits of continued treatment patient expresses understanding of his condition and its severity. He would would like to focus on comfort and pain control. REviewed condition an doptions. patient expresses an understanding that CPR in the setting of his disease and frailty is unlikely be successful, and if successful would likely have a devastating effect on his quality of life. On shared decisionmaking patient would like to move to DNR/DNI and SEASONING MIXER goals of care. He understands that this involves stopping other treatments which are directly related to his comfort. Patient requests that he be able to reach out/talk to his . Conversation was had in the presence of guards, who have reached out through the senior care system to help arrange contact. Contacted [facility] accounts payable supervisor who is aware of clinical decline and CODE STATUS change. - SEASONING MIXER 02/04 Mesenteric ischemia - Pt with worsened abdominal pain 02/04. Previously with intermittent epigastric pain with some TTP and previous EGD/CT/consult as noted. Lactate 3.2 CTA: Portal venous gas re-demonstated, gas density along small bowel several bowel loops are suspicious for pneumatosis suspicious for bowel ischemia. Ileus. No transition to obstruction. SMA/vein patent. - Surgery Consulted. See above. - Heparin drip held held for SEASONING MIXER - K as below - NSS 125cc/hr held for SEASONING MIXER - Zosyn abx (hx of non-allergy rash) d/malathi - (2) Gastric mass: Plan: Gastric mass - CT-A/P: Thrombus involving some of the left portal veins. There is also portal venous gas adjacent to these areas of thrombus within the left hepatic lobe which demonstrates heterogeneous enhancement. This could be seen in the setting of an emphysematous hepatitis or possibly related to portal venous gas in the setting of ischemic bowel. However, there is no definite pneumoperitoneum or pneumatosis identified. Thickened and edematous distal esophagus and stomach suggesting a nonspecific gastritis. Multiple distended and fluid-filled loops of large and small bowel seen throughout the abdomen. No clear transition point to suggest an obstruction. Therefore, this favors a diarrheal illness/gastritis or ileus. Small left pleural effusion. Right lower lobe subsegmental pulmonary embolus. No adenopathy, - EGD: Moderate mucosal changes with congestion, erythema, erosion, and nodularity in lower third of the esophagus. Large infiltrative mass with oozing bleeding in gastric body. Decreased folds in the duodenum, flattening of entire duodenum with scalloped mucosa. Biopsies taken. Colonoscopy: Normal terminal ileum, colon examined portion appeared normal, no observed rectum or anal abnormalities - Discussed w/ GI. Given appearance on EGD and on review of images recommend patient have a EUS+biopsy.scheduled for this Monday. Biopsy results: A. Duodenum, biopsy: - Duodenal mucosa with complete villous blunting and increased intraepithelial lymphocytes. B. Stomach, (apparent mass), biopsy: - Benign appearing mucosa with minimal chronic inflammation. - Correlation with clinical findings is recommended. C. Esophagus, biopsy: - Ulcer. - GMS stain for fungal organisms: Negative. - HSV 1/2 immunohistochemistry: No definitive staining present. - Cytomegalovirus immunohistochemistry: No definitive staining present. - Columnar/gastric type mucosa present. - Negative for intestinal metaplasia and dysplasia. Normal biopsy results. Infiltrative mass was appreciated on EGD,? Mucosal biopsy did not capture deeper malignancy. Discussed with GI on whether patient would benefit/should have a EUS/needle biopsy to further characterize being that patient does clearly expressed he would want diagnostic work-up with potential chemotherapy, even considering his severe underlying medical frailty. - Patient requires anticoagulation for DVT, in the setting of his severe nutritional deficiency he is high risk and warfarin is likely inappropriate due to his nutritional fluctuations and history of severe supra therapeutic INR. D OACs not recommended due to gastric/small bowel absorption and exclusion from studies; discussed with Dr. Klein. Recommend Lovenox 60mg SQ daily for therapeutic anticoagulation. Plan was to transition from heparin gtt following EUS/at discharge, heparin held with ischemia/bloody BM as above Family history of gastric cancer Patient with intermittent stomach upset worsened 02/04, see mesenteric ischemia above - Patient with SEASONING MIXER 02/04 (3) Abnormal CT of the abdomen: Plan: - 01/26 CT a/p - portal venous gas seen but no free air; no pneumatosis. -DDx unclear, transient ischemia versus infectious versus other - CT-A/P: Thrombus involving some of the left portal veins. There is also portal venous gas adjacent to these areas of thrombus within the left hepatic lobe which demonstrates heterogeneous enhancement. This could be seen in the setting of an emphysematous hepatitis or possibly related to portal venous gas in the setting of ischemic bowel. However, there is no definite pneumoperitoneum or pneumatosis identified. 2. Thickened and edematous distal esophagus and stomach suggesting a nonspecific gastritis. 3. Multiple distended and fluid-filled loops of large and small bowel seen throughout the abdomen. No clear transition point to suggest an obstruction. Therefore, this favors a diarrheal illness/gastritis or ileus. 4. Small left pleural effusion. 5. Right lower lobe subsegmental pulmonary embolus. General surgery consulted. GI consulted. No intervention at this time for portal vein gas. - Repeat CTA: Portal venous gas re-demonstated, gas density along small bowel several bowel loops are suspicious for pneumatosis suspicious for bowel ischemia. Ileus. No transition to obstruction. SMA/vein patent. (4) PVT (portal vein thrombosis): Plan: CT as noted above Suspect hypercoagulability in the setting of malignancy Heparin GTT --> Lovenox. Held for GIB and SEASONING MIXER. (5) Hypocalcemia: Plan: - Below held for SEASONING MIXER Improved Presented with severe hypocalcemia and tetany -Continue calcitriol 1 mcg daily. Using calcitriol for vit D deficiency rather than D3 as the calcitriol will be more readily available due to malabsorption. - Continue calcium carbonate 1250 mg twice daily. -Trend electrolytes daily (6) Severe protein-calorie malnutrition: Plan: - 2nd to uncontrolled celiac disease and now the suspected gastric ca. biopsies pending. - Records indicate a past h/o microscopic colitis in 2018 requiring steroids. -Cont MVI. - SEASONING MIXER 02/04 as above (7) Celiac disease: Plan: -Noncompliant with diet at senior care. -Also with prior history of lymphocytic colitis related to celiac disease-previo usly on steroids but not at this time. -Stool studies negative for infection. Lipase negative Continue PPI - SEASONING MIXER 02/04 as above (8) Supratherapeutic INR: Plan: 2nd to vitamin K deficiency. Patient will require anticoagulation as above, but is high risk for supratherapeutic INR due to nutritional deficiency s/p vitamin k supplementation at admission.No proble - you can also - Anticoag discontinued for SEASONING MIXER (9) GERD (gastroesophageal reflux disease): Plan: Continue PPI EGD as above (10) Prolonged QT interval: (11) Hypothyroid: Plan: TSH mildly elevated on last 3 checks increased synthroid to 50mcg daily during admit (12) Lactose intolerance: Plan: switched to soy products as advised by nutrition (13) Mood disorder: Plan: continue buspar 5 mg bid and Remeron continued remeron (14) PAF (paroxysmal atrial fibrillation): Plan: 30 minutes of atrial fibrillation during hospitalization several years ago no PAF during this stay (15) Chronic deep vein thrombosis (DVT): Plan: Prior history of DVT see "PVT" above (16) Transaminitis: Plan: CT abd/pelvis with abnormal appearing left lobe of the liver mildly abnormal LFTs labs deferred after SEASONING MIXER (17) Elevated alkaline phosphatase level: Plan: 2nd vitamin D deficiency DDx includes osteomalacia trended, rechecks d/malathi with SEASONING MIXER (18) Anemia: Plan: B12, folate, and Fe studies are normal could have micronutrient def leading to anemia - zinc, etc Differential includes anemia of chronic disease (19) Hypokalemia: Plan: - K repetedly and intermittenly low during admit - repleted - Bowel pneumatosis/ischemia as above (20) BPH (benign prostatic hyperplasia): Plan: Continue Flomax (21) Hypophosphatemia: Plan: resolved s/p replacement (22) Vitamin D deficiency: Plan: -25-OH vit D level = 11 this admission -Continue calcitriol 1 mcg daily. Using calcitriol for vit D deficiency rather than D3 as the calcitriol will be more readily available due to malabsorption. (23) Pulmonary embolus: Plan: as seen on CT 01/26/21 lifelong anticoagulation will be needed due, hx of PE/rec VTE/thrombus as above (24) Refeeding syndrome: Plan: suspected cont electrolyte replacement and daily labs (25) Lymphocytic colitis: Plan: history of 2018 - confirmed with colonoscopy biopsies at that time took steroids for some period of time biopsies taken as noted above during admission additional workup deferred (26) Failure to thrive: Plan: celiac, probable ca, possible lymphocytic colitis Admission and Anticipated Discharge Date Admission Date: January 15, 2021 Subjective Seen at bedside this morning. Pt with increased abdominal pain 'really bad, worse' which started yesterday evening and which continues into this morning. Reports was eating and pain was 'OK' before that. +Bloody BM last night, +1 BM this morning. Reviewed case with surgery. Patient is medically frail, intermittently hypotensive, with multiple morbidities as below. Given the disease appreciated on repeat CT he is a poor surgical candidate and would likely not survive surgery. This is likely not a survivable for the him. This was discussed with the patient, who had previously wanted additional diagnostic work-up for his suspected cancer and full code status. In revisiting his current symptoms, and discussion of risk/benefits of continued treatment patient expresses understanding of his condition and its severity. He would would like to focus on comfort and pain control. REviewed condition an doptions. patient expresses an understanding that CPR in the setting of his disease and frailty is unlikely be successful, and if successful would likely have a devastating effect on his quality of life. On shared decisionmaking patient would like to move to DNR/DNI and SEASONING MIXER goals of care. He understands that this involves stopping other treatments which are directly related to his comfort. Patient requests that he be able to reach out/talk to his . Conversation was had in the presence of guards, who have reached out through the senior care system to help arrange contact. Review of Systems Review of Systems: All systems reviewed & are unremarkable except as noted in Subjective Physical Exam Physical Exam: General: Frail, cachectic appearing male. HEENT: Atraumatic, normocephalic. Pupils equal and reactive to light. Visual acuity and hearing grossly intact. Pulm: Symmetrical chest rise. No increase work of breathing. No respiratory distress. Cardiac: RRR, -mrg. Radial pulses intact and symmetrical. Abdominal: Diffuse abdominal tenderness to palpation diffusely, soft. Extremities: Thin. Results & Data Results & Data ([facility]) Vital Signs (Past 12 Hours) Vital Signs Temp Pulse Resp BP Pulse Ox 02/03/21 22:27 36.4 C L 105 H 20 96/64 L 96 PG Care Time/CCT Total # of Minutes Spent Total Time Spent with Patient: Total time spent is greater than 50% in coordination of care (as documented) at patient's floor/unit and/or counseling patient: Coding Level of Care Code 01850 Subseq Hosp Care Lvl 3 Diagnoses Gastric mass K31.[address] of the abdomen R93.5 PVT (portal vein thrombosis) I81 Hypocalcemia E83.51 Severe protein-calorie malnutrition E43 Celiac disease K90.0 Supratherapeutic INR R79.1 GERD (gastroesophageal reflux disease) K21.9 Prolonged QT interval R94.31 Hypothyroid E03.9 Lactose intolerance E73.9 Mood disorder F39 PAF (paroxysmal atrial fibrillation) I48.0 Chronic deep vein thrombosis (DVT) I82.509 Transaminitis R74.01 Elevated alkaline phosphatase level R74.8 Anemia D64.9 Anemia type: unspecified type Hypokalemia E87.6 BPH (benign prostatic hyperplasia) N40.0 Hypophosphatemia E83.39 Vitamin D deficiency E55.9 Pulmonary embolus I26.99 Refeeding syndrome E87.8 Lymphocytic colitis K52.832 Failure to thrive R62.7 Failure to thrive age range: in adult Mesenteric ischemia K55.9 (1) Anemia Anemia type: unspecified type Qualified Code(s): D64.9 - Anemia, unspecified (2) Failure to thrive Failure to thrive age range: in adult Qualified Code(s): R62.7 - Adult failure to thrive
[2021-02-04] MEDS ORDERED: PIPERACILLIN/TAZOBACTAM 4.5 GM in DEXTROSE 5% 100 ML IV ONE (07:45)
[2021-02-04] MEDS: LACTASE 3000 UNIT TAB PO SCH ×3 (07:48→17:31)
[2021-02-04] MEDS: PANCREAZE (LIPASE 10,500U) CAP PO SCH ×3 (07:52→17:31)
[2021-02-04] MEDS: CALCIUM CARBONATE 1,250 MG/5 ML UDC PO SCH (07:52)
[2021-02-04] MEDS: CALCITRIOL 0.25 MCG CAPSULE PO SCH (07:53)
[2021-02-04] MEDS: POTASSIUM CHLORIDE 20 MEQ/15 ML UDC PO SCH (07:53)
[2021-02-04] MEDS: busPIRone 5 MG TAB PO SCH ×2 (07:53→20:53)
[2021-02-04] MEDS: CEROVITE ADV FORMULA TAB PO SCH (07:53)
[2021-02-04] MEDS: THIAMINE HCL 100 MG TAB PO SCH (07:54)
[2021-02-04] MEDS: ZINC SULFATE 220 MG CAPSULE PO SCH (07:54)
[2021-02-04] MEDS: TAMSULOSIN HCL 0.4 MG CAP PO SCH (07:54)
[2021-02-04] MEDS: COLESTIPOL HCL 1 GM TAB PO SCH (07:54)
--- NOTE | 2021-02-04 07:56 | Surgery Progress Note ---
Date of Service February 04, 2021 Assessment & Plan (1) Abnormal CT of the abdomen: Plan: - Patient admitted with electrolyte abnormalities likely related to his severe malnutrition 2/2 celiac's disease. Our service had previously evaluated the patient on 01/26 when patient reported abdominal pain and workup with CT a/p revealed thrombus of the L portal veins and portal venous gas...at the time of our consultation he was no longer complaining of pain and abdominal exam was unremarkable and plan was to continue to monitor the patient. Since then he has been evaluated for a + gastric mass found by EGD with GI... suppose to plan for repeat EGD this Monday to obtain better biopsy as path did not show malignancy despite high concerns - Patient then developed worsening abdominal pain yesterday evening prompting a repeat CT scan revealing again portal venous gas in the liver and mesenteric veins along with gas in the valero of several small bowel loops, likely pneumatosis with the consideration of bowel ischemia. Also dilated loops of small-bowel with gas/fluid suggesting ileus - Pt was moved to the ICU for further monitoring. He is tachycardic, BP is borderline low. Labs show WBC 6, Lactate: 3.2, K: 2.9. - On examination patient's abdomen is softly distended with generalized tenderness to palpation with some + guarding to palpation - For now continue NPO with IVF, NGT has been placed. I will discuss the results with Dr. Flores and further recommendations to follow (2) PVT (portal vein thrombosis): Admission and Anticipated Discharge Date Admission Date: January 15, 2021 Subjective Events reviewed from overnight. Patient reports increase in abdominal pain rating it a 10/10 starting yesterday evening. He endorses nausea/vomiting associated with this. He says up until yesterday he was eating okay. He says he is still passing flatus/BMs. He is currently also complaining of pain in his R arm from IV site. Physical Exam Physical Exam: awake/alert Gastrointestinal (Abdomen): Inspection/Auscultation: + abdomen distended Percussion/Palpation: + abdomen tender (generalized tenderness to palpation) and abdomen soft Results & Data ([facility]) Vital Signs (Past 12 Hours) Vital Signs Temp Pulse Resp BP Pulse Ox 02/03/21 22:27 36.4 C L 105 H 20 96/64 L 96 PG Care Time/CCT Total # of Minutes Spent Total Time Spent with Patient: Total time spent is greater than 50% in coordination of care (as documented) at patient's floor/unit and/or counseling patient: Coding Level of Care Code 06235 Subseq Hosp Care Lvl [address] of the abdomen R93.5 PVT (portal vein thrombosis) I81
[2021-02-04] MEDS: PANTOprazole 40 MG in SYRINGE 0 ML IV SCH ×2 (08:22→21:12)
[2021-02-04] MEDS: FLUTICASONE FUROATE 200MCG 14 PUFFS/INHALER INH SCH (08:24)
--- NOTE | 2021-02-04 08:25 | XRay Report ---
XR chest 1V portable HISTORY: ng placement COMPARISON: Chest 09/22/2019. FINDINGS: No pneumothorax. The lungs are hyperexpanded with apical predominant emphysematous changes. Venous gas is noted within the liver. No focal lung consolidations. No evidence for pulmonary edema. Nasogastric tube terminates in the gastroesophageal junction. This could be advanced by proximal a 5 to 10 cm. Multiple distended gas-filled loops of large and small bowel are noted. IMPRESSION: 1. Nasogastric tube terminates at the gastroesophageal junction. This could be advanced by approximat franky 5 to 10 cm. 2. Portal venous gas and multiple distended loops of large and small bowel are again seen within the abdomen. ACT 112: Negative or not required by law. Electronically signed by: Hasmukh Navarro M.D. 02/04/2021 8:24 AM
--- NOTE | 2021-02-04 08:31 | CT Scan Report ---
ABDOMEN AND PELVIS CT WITH IV CONTRAST CT DOSE: 350.96 mGy.cm HISTORY: severe abdominal pain TECHNIQUE: Multiaxial CT images of the abdomen and pelvis were performed following the use of intrave nous contrast. A dose lowering technique was utilized adhering to the principles of ALARA. COMPARISON STUDY: Abdomen and pelvis CT 01/09/2021. FINDINGS: There are few faint patchy groundglass densities within the lung bases. Significant progres rosa of the extensive portal venous gas within the liver. There is also pneumatosis within the stomac h and loops of small bowel bowel within the abdomen. This most pronounced within the right side of th e abdomen. There is no pneumoperitoneum. No suspicious lytic or blastic osseous lesions. The main por travis vein is patent. Thrombus within the left portal vein appears to have resolved in the interval. Th ere is heterogeneous enhancement within the liver. A 5 mm stone within the right kidney. Normal left kidney. No hydronephrosis. The pancreas and gallbladder are unremarkable. There is gas within the sup erior mesenteric veins. The bladder is unremarkable. Dilated loops of small bowel are seen throughout the abdomen. No clear transition point. Therefore, this could represent an ileus or partial small yessenia wel obstruction. No retroperitoneal lymphadenopathy. Normal caliber abdominal aorta. The spleen is no t identified and may be surgically absent. Small hiatus hernia. Mild thickening at the distal esophag us is again noted. Diffuse body wall edema. Bilateral hydroceles are again noted. IMPRESSION: 1. Significant progression of the portal venous gas with multiple areas of pneumatosis seen within th e dilated loops of small bowel. Therefore, this is highly suspicious for ischemic bowel. 2. There is also suggestion of pneumatosis involving the stomach. This is concerning for emphysematou s gastritis. 3. Dilated loops of small bowel without a clear transition point. This favors an ileus. A partial sma ll bowel obstruction could also have a similar appearance. 4. Right-sided nephrolithiasis. No hydronephrosis. ACT 112: Negative or not required by law. Electronically signed by: Hasmukh Navarro M.D. 02/04/2021 8:30 AM
[2021-02-04] MEDS ORDERED: MAGNESIUM OXIDE 400 MG TAB PO SCH (09:00)
[2021-02-04] MEDS ORDERED: MoRPHine SULFATE 5 MG/0.25 ML UDP PO PRN (09:07)
[2021-02-04] MEDS ORDERED: ONDANSETRON INJ 2 MG/ML 2 ML VIAL IV PRN (09:07)
[2021-02-04] MEDS ORDERED: ONDANSETRON 4 MG OD TAB SL PRN (09:07)
[2021-02-04] MEDS ORDERED: LORazepam 0.5 MG TAB PO PRN (09:07)
[2021-02-04] MEDS ORDERED: LORazepam 0.5 MG/1 ML VIAL IV PRN (09:07)
[2021-02-04] MEDS ORDERED: MoRPHine SULFATE 2 MG/ML CARP IV PRN (09:07)
--- NOTE | 2021-02-04 09:20 | Communication Note ---
Date of Service: February 04, 2021 60 yr old male admitted on 01/15 for PE, PVT, anemia, failure to thrive. EGD on 01/28 with a gastric mass. Plan is for EUS tomorrow by Dr. Crawford. Please keep NPO after midnight. Please correct electrolytes (K this morning = 2.9; will need to be >3.2 to go forward with sedation). Please hold heparin drip 6 hr prior to EUS (will have better estimate of the time of tomorrow's procedure by late afternoon today and will notify primary hospitalist).
[2021-02-04] MEDS ORDERED: CALCIUM CARBONATE 500 MG CHEWABLE TAB PO PRN (10:08)
[2021-02-04] MEDS ORDERED: PIPERACILLIN/TAZOBACTAM 4.5 GM in DEXTROSE 5% 100 ML IV SCH (14:00)
[2021-02-04] MEDS: MIRTAZAPINE SOLTAB 15 MG PO SCH (20:53)
[2021-02-05] MEDS: POTASSIUM CHLORIDE / WTR 10 MEQ/100 ML PLCT IV SCH ×2 (00:16→00:17)
[2021-02-05] MEDS: LEVOTHYROXINE SODIUM 50 MCG TABLET PO SCH (06:42)
[2021-02-05] MEDS: LACTASE 3000 UNIT TAB PO SCH ×3 (08:01→17:33)
[2021-02-05] MEDS: busPIRone 5 MG TAB PO SCH ×2 (08:02→20:17)
[2021-02-05] MEDS: PANCREAZE (LIPASE 10,500U) CAP PO SCH ×3 (08:02→17:33)
[2021-02-05] MEDS: PANTOprazole 40 MG in SYRINGE 0 ML IV SCH ×2 (08:03→20:17)
[2021-02-05] MEDS: FLUTICASONE FUROATE 200MCG 14 PUFFS/INHALER INH SCH (09:28)
--- NOTE | 2021-02-05 17:02 | Hospitalist Progress Note ---
Date of Service February 05, 2021 Assessment & Plan (1) Mesenteric ischemia: Plan: Rikki Pascual is a chronically ill, severely malnourished 60-year-old male with past medical history of A. fib, DVT, GERD, and severe hypocalcemia/hypercalcemia, hypomagnesemia with a family history of gastric cancer who presented with hypoglycemia and tetany, abdominal pain, and weight loss. He has history of celiac disease with which she is diet noncompliant, during admission he was also noticed to have a gastric mass which is highly suspicious for gastric cancer. Biopsy was obtained, results normal although in discussion and review GI potentially inadequate sample at its been scheduled for EUS Monday. Patient has had intermittent abdominal pain with tenderness at epigastrium which worsened the evening of 02/03 and subsequent work-up indicative of acute mesenteric ischemia. Goals of Care: Reviewed case with surgery. Patient is medically frail, intermittently hypotensive, with multiple morbidities as below. Given the disease appreciated on repeat CT he is a poor surgical candidate and would likely not survive surgery. This was discussed with the patient, who had previously wanted additional diagnostic work-up for his suspected cancer and full code status. In revisiting his current symptoms, and discussion of risk/benefits of continued treatment patient expresses understanding of his condition and its severity. He would would like to focus on comfort and pain control. REviewed condition an doptions. patient expresses an understanding that CPR in the setting of his disease and frailty is unlikely be successful, and if successful would likely have a devastating effect on his quality of life. On shared decisionmaking patient would like to move to DNR/DNI and PHARMACY STUDENT goals of care. He understands that this involves stopping other treatments which are not directly related to his comfort. Patient requests that he be able to reach out/talk to his . Conversation was had in the presence of guards, who have reached out through the [facility] system to help arrange contact (see below). Contacted [facility] prep room supervisor who is aware of clinical decline and CODE STATUS change. - PHARMACY STUDENT -02/05: Patient frail-appearing, continues with some abdominal tenderness improved with pain medicine and worsened by food and report. And had a blood pressure check earlier, hypotensive. Certainly appropriate for hospice, although with his hypotension, frail appearance, consider illness concerned for his risk of transport. Per SCI better we are able to reach out to patient's at his request and update her on his condition, unclear relationship that they have and whether she would want to visit. If she does want a visit would have to be approved through [employer]. 's name is Julia and available at [phone], attempted to reach [facility] but went to [facility]. - SCI Mike with only Tylenol #3 on hand. For hospice/PHARMACY STUDENT medications will need to order in advance. Called [facility], aware that he is on lorazepam 0.5 mg by mouth as needed and morphine 5 mg by mouth as needed for anxiety and pain. Working to get delivered, likely will not have delivered until Monday. Will require physician to physician signout for final dosing/order facility number is [phone]. Once initial meds received facility physician can adjust as needed. Mesenteric ischemia - Pt with worsened abdominal pain 02/04. Subsequent eval as below with bowel ischemia, pneumatosis. Would certainly be Lactate 3.2 CTA: Portal venous gas re-demonstated, gas density along small bowel several bowel loops are suspicious for pneumatosis suspicious for bowel ischemia. Ileus. No transition to obstruction. SMA/vein patent. - Surgery Consulted. See above. - Heparin drip held held for PHARMACY STUDENT - K as below - NSS 125cc/hr held for PHARMACY STUDENT - Zosyn abx (hx of non-allergy rash) d/malathi - (2) Gastric mass: Plan: Gastric mass - CT-A/P: Thrombus involving some of the left portal veins. There is also portal venous gas adjacent to these areas of thrombus within the left hepatic lobe which demonstrates heterogeneous enhancement. This could be seen in the setting of an emphysematous hepatitis or possibly related to portal venous gas in the setting of ischemic bowel. However, there is no definite pneumoperitoneum or pneumatosis identified. Thickened and edematous distal esophagus and stomach suggesting a nonspecific gastritis. Multiple distended and fluid-filled loops of large and small bowel seen throughout the abdomen. No clear transition point to suggest an obstruction. Therefore, this favors a diarrheal illness/gastritis or ileus. Small left pleural effusion. Right lower lobe subsegmental pulmonary embolus. No adenopathy, - EGD: Moderate mucosal changes with congestion, erythema, erosion, and nodularity in lower third of the esophagus. Large infiltrative mass with oozing bleeding in gastric body. Decreased folds in the duodenum, flattening of entire duodenum with scalloped mucosa. Biopsies taken. Colonoscopy: Normal terminal ileum, colon examined portion appeared normal, no observed rectum or anal abnormalities - Discussed w/ GI. Given appearance on EGD and on review of images recommend patient have a EUS+biopsy.scheduled for this Monday. Biopsy results: A. Duodenum, biopsy: - Duodenal mucosa with complete villous blunting and increased intraepithelial lymphocytes. B. Stomach, (apparent mass), biopsy: - Benign appearing mucosa with minimal chronic inflammation. - Correlation with clinical findings is recommended. C. Esophagus, biopsy: - Ulcer. - GMS stain for fungal organisms: Negative. - HSV 1/2 immunohistochemistry: No definitive staining present. - Cytomegalovirus immunohistochemistry: No definitive staining present. - Columnar/gastric type mucosa present. - Negative for intestinal metaplasia and dysplasia. Normal biopsy results. Infiltrative mass was appreciated on EGD,? Mucosal biopsy did not capture deeper malignancy. Discussed with GI on whether patient would benefit/should have a EUS/needle biopsy to further characterize being that patient does clearly expressed he would want diagnostic work-up with potential chemotherapy, even considering his severe underlying medical frailty. - Patient requires anticoagulation for DVT, in the setting of his severe nutritional deficiency he is high risk and warfarin is likely inappropriate due to his nutritional fluctuations and history of severe supra therapeutic INR. DOACs not recommended due to gastric/small bowel absorption and exclusion from studies; discussed with Dr. Klein. Recommend Lovenox 60mg SQ daily for therapeutic anticoagulation. Plan was to transition from heparin gtt following EUS/at discharge, heparin held with ischemia/bloody BM as above Family history of gastric cancer Patient with intermittent stomach upset worsened 02/04, see mesenteric ischemia above - Patient with PHARMACY STUDENT 02/04 (3) Abnormal CT of the abdomen: Plan: - 01/26 CT a/p - portal venous gas seen but no free air; no pneumatosis. -DDx unclear, transient ischemia versus infectious versus other - CT-A/P: Thrombus involving some of the left portal veins. There is also portal venous gas adjacent to these areas of thrombus within the left hepatic lobe which demonstrates heterogeneous enhancement. This could be seen in the setting of an emphysematous hepatitis or possibly related to portal venous gas in the setting of ischemic bowel. However, there is no definite pneumoperitoneum or pneumatosis identified. 2. Thickened and edematous distal esophagus and stomach suggesting a nonspecific gastritis. 3. Multiple distended and fluid-filled loops of large and small bowel seen throughout the abdomen. No clear transition point to suggest an obstruction. Therefore, this favors a diarrheal illness/gastritis or ileus. 4. Small left pleural effusion. 5. Right lower lobe subsegmental pulmonary embolus. General surgery consulted. GI consulted. No intervention at this time for portal vein gas. - Repeat CTA: Portal venous gas re-demonstated, gas density along small bowel several bowel loops are suspicious for pneumatosis suspicious for bowel ischemia. Ileus. No transition to obstruction. SMA/vein patent. (4) PVT (portal vein thrombosis): Plan: CT as noted above Suspect hypercoagulability in the setting of malignancy Heparin GTT --> Lovenox. Held for GIB and PHARMACY STUDENT. (5) Hypocalcemia: Plan: - Below held for PHARMACY STUDENT Improved Presented with severe hypocalcemia and tetany -Continue calcitriol 1 mcg daily. Using calcitriol for vit D deficiency rather than D3 as the calcitriol will be more readily available due to malabsorption. - Continue calcium carbonate 1250 mg twice daily. -Trend electrolytes daily (6) Severe protein-calorie malnutrition: Plan: - 2nd to uncontrolled celiac disease and now the suspected gastric ca. biopsies pending. - Records indicate a past h/o microscopic colitis in 2018 requiring steroids. -Cont MVI. - PHARMACY STUDENT 02/04 as above (7) Celiac disease: Plan: -Noncompliant with diet at [facility]. -Also with prior history of lymphocytic colitis related to celiac disease- previously on steroids but not at this time. -Stool studies negative for infection. Lipase negative Continue PPI - PHARMACY STUDENT 02/04 as above (8) Supratherapeutic INR: Plan: 2nd to vitamin K deficiency. Patient will require anticoagulation as above, but is high risk for supratherapeutic INR due to nutritional deficiency s/p vitamin k supplementation at admission.No proble - you can also - Anticoag discontinued for PHARMACY STUDENT (9) GERD (gastroesophageal reflux disease): Plan: Continue PPI EGD as above (10) Prolonged QT interval: (11) Hypothyroid: Plan: TSH mildly elevated on last 3 checks increased synthroid to 50mcg daily during admit (12) Lactose intolerance: Plan: switched to soy products as advised by nutrition (13) Mood disorder: Plan: continue buspar 5 mg bid and Remeron continued remeron (14) PAF (paroxysmal atrial fibrillation): Plan: 30 minutes of atrial fibrillation during hospitalization several years ago no PAF during this stay (15) Chronic deep vein thrombosis (DVT): Plan: Prior history of DVT see "PVT" above (16) Transaminitis: Plan: CT abd/pelvis with abnormal appearing left lobe of the liver mildly abnormal LFTs labs deferred after PHARMACY STUDENT (17) Elevated alkaline phosphatase level: Plan: 2nd vitamin D deficiency DDx includes osteomalacia trended, rechecks d/malathi with PHARMACY STUDENT (18) Anemia: Plan: B12, folate, and Fe studies are normal could have micronutrient def leading to anemia - zinc, etc Differential includes anemia of chronic disease (19) Hypokalemia: Plan: - K repetedly and intermittenly low during admit - repleted - Bowel pneumatosis/ischemia as above (20) BPH (benign prostatic hyperplasia): Plan: Continue Flomax (21) Hypophosphatemia: Plan: resolved s/p replacement (22) Vitamin D deficiency: Plan: -25-OH vit D level = 11 this admission -Continue calcitriol 1 mcg daily. Using calcitriol for vit D deficiency rather than D3 as the calcitriol will be more readily available due to malabsorption. (23) Pulmonary embolus: Plan: as seen on CT 01/26/21 lifelong anticoagulation will be needed due, hx of PE/rec VTE/thrombus as above (24) Refeeding syndrome: Plan: suspected cont electrolyte replacement and daily labs (25) Lymphocytic colitis: Plan: history of 2018 - confirmed with colonoscopy biopsies at that time took steroids for some period of time biopsies taken as noted above during admission additional workup deferred (26) Failure to thrive: Plan: celiac, probable ca, possible lymphocytic colitis Admission and Anticipated Discharge Date Admission Date: January 15, 2021 Subjective Patient seen at bedside. Somnolent, frail-appearing. Awakens in room, reports that he has some abdominal pain which is worse after eating. Continues to feel weak, fatigued. Would like to know if his can be contacted to let him know of his condition, otherwise feels similar to prior. Review of Systems Review of Systems: Review of systems negative except as noted in subjective Physical Exam Physical Exam: General: Frail, cachectic appearing male. HEENT: Atraumatic, normocephalic. Visual acuity and hearing grossly intact. Pulm: Symmetrical chest rise. No increase work of breathing. No respiratory distress. Cardiac: Radial intact Extremities: Thin. Results & Data Results & Data ([facility]) Vital Signs (Past 12 Hours) Vital Signs Temp Pulse Resp BP BP Pulse Ox 02/05/21 16:05 36.3 C L 90 16 88/55 L 96 02/05/21 07:00 36.8 C 101 H 16 86/60 L 96 PG Care Time/CCT Total # of Minutes Spent Total Time Spent with Patient: Total time spent is greater than 50% in coordination of care (as documented) at patient's floor/unit and/or counseling patient: Coding Level of Care Code 58401 Subseq Hosp Care Lvl 2 Diagnoses Mesenteric ischemia K55.9 Gastric mass K31.[address] of the abdomen R93.5 PVT (portal vein thrombosis) I81 Hypocalcemia E83.51 Severe protein-calorie malnutrition E43 Celiac disease K90.0 Supratherapeutic INR R79.1 GERD (gastroesophageal reflux disease) K21.9 Prolonged QT interval R94.31 Hypothyroid E03.9 Lactose intolerance E73.9 Mood disorder F39 PAF (paroxysmal atrial fibrillation) I48.0 Chronic deep vein thrombosis (DVT) I82.509 Transaminitis R74.01 Elevated alkaline phosphatase level R74.8 Anemia D64.9 Anemia type: unspecified type Hypokalemia E87.6 BPH (benign prostatic hyperplasia) N40.0 Hypophosphatemia E83.39 Vitamin D deficiency E55.9 Pulmonary embolus I26.99 Refeeding syndrome E87.8 Lymphocytic colitis K52.832 Failure to thrive R62.7 Failure to thrive age range: in adult (1) Anemia Anemia type: unspecified type Qualified Code(s): D64.9 - Anemia, unspecified (2) Failure to thrive Failure to thrive age range: in adult Qualified Code(s): R62.7 - Adult failure to thrive
[2021-02-05] MEDS: MIRTAZAPINE SOLTAB 15 MG PO SCH (20:17)
[2021-02-06] MEDS: LEVOTHYROXINE SODIUM 50 MCG TABLET PO SCH (06:06)
--- NOTE | 2021-02-06 07:48 | Surgery Progress Note ---
Date of Service February 06, 2021 Assessment & Plan (1) PVT (portal vein thrombosis): Plan: Looks remarkably stable given his intra-abdominal pathology As stated before nonsurgical candidate Admission and Anticipated Discharge Date Admission Date: January 15, 2021 Physical Exam Physical Exam: Alert coherent states abdominal pain is better passing flatus Wanted to know if the snf had been in touch with his PG Care Time/CCT Total # of Minutes Spent Total Time Spent with Patient: Total time spent is greater than 50% in coordination of care (as documented) at patient's floor/unit and/or counseling patient: Coding Level of Care Code 95942 Subseq Hosp Care Lvl 1 Diagnoses PVT (portal vein thrombosis) I81
[2021-02-06] MEDS: FLUTICASONE FUROATE 200MCG 14 PUFFS/INHALER INH SCH (08:14)
[2021-02-06] MEDS: PANCREAZE (LIPASE 10,500U) CAP PO SCH ×3 (08:15→17:18)
[2021-02-06] MEDS: busPIRone 5 MG TAB PO SCH ×2 (08:15→20:03)
[2021-02-06] MEDS: LACTASE 3000 UNIT TAB PO SCH ×3 (08:15→17:18)
[2021-02-06] MEDS: PANTOprazole 40 MG in SYRINGE 0 ML IV SCH ×2 (08:18→20:03)
[2021-02-06] MEDS: MIRTAZAPINE SOLTAB 15 MG PO SCH (20:03)
[2021-02-07] MEDS: LEVOTHYROXINE SODIUM 50 MCG TABLET PO SCH (05:03)
--- NOTE | 2021-02-07 07:51 | Surgery Progress Note ---
Date of Service February 07, 2021 Assessment & Plan (1) Mesenteric ischemia: Plan: Continue with nonoperative management Admission and Anticipated Discharge Date Admission Date: January 15, 2021 Subjective Denies any significant abdominal pain would like to have a hot chocolate States he is passing flatus and moving his bowels Physical Exam Physical Exam: Resting comfortably without any acute issues PG Care Time/CCT Total # of Minutes Spent Total Time Spent with Patient: Total time spent is greater than 50% in coordination of care (as documented) at patient's floor/unit and/or counseling patient: Coding Level of Care Code 90213 Subseq Hosp Care Lvl 2 Diagnoses Mesenteric ischemia K55.9
[2021-02-07] MEDS: busPIRone 5 MG TAB PO SCH ×2 (10:16→20:17)
[2021-02-07] MEDS: PANTOprazole 40 MG in SYRINGE 0 ML IV SCH ×2 (10:16→20:17)
[2021-02-07] MEDS: LACTASE 3000 UNIT TAB PO SCH ×3 (10:16→16:56)
[2021-02-07] MEDS: FLUTICASONE FUROATE 200MCG 14 PUFFS/INHALER INH SCH (10:17)
[2021-02-07] MEDS: PANCREAZE (LIPASE 10,500U) CAP PO SCH ×3 (10:18→16:56)
--- NOTE | 2021-02-07 19:37 | Hospitalist Progress Note ---
Date of Service February 06, 2021 Assessment & Plan (1) Palliative care patient: Plan: cont comfort care measures despite his celiac will liberalize his diet at his request will contact assisted medical laboratory technician on Monday to determine if patient can return to [facility] on hospice / [employer]ji gave permission to call pt's (patient requested we do such) will attempt to call her tomorrow (2) Comfort measures only status: (3) Mesenteric ischemia: (4) Gastric mass: (5) Pulmonary embolus: (6) PVT (portal vein thrombosis): (7) Hypophosphatemia: (8) Hypocalcemia: (9) Hypokalemia: (10) Transaminitis: (11) Severe protein-calorie malnutrition: (12) Refeeding syndrome: (13) Vitamin D deficiency: (14) PAF (paroxysmal atrial fibrillation): (15) BPH (benign prostatic hyperplasia): (16) Celiac disease: (17) Vitamin K deficiency: (18) Failure to thrive: (19) Chronic deep vein thrombosis (DVT): (20) GERD (gastroesophageal reflux disease): (21) Hypothyroid: (22) Anemia: Admission and Anticipated Discharge Date Admission Date: January 15, 2021 Subjective patient remains on comfort care measures utilizing very few doses of morphine prn just occasional abd pain asking for more food - wants soup with noodles, not just broth; and corn chips diarrhea has slowed Review of Systems Review of Systems: gen - no fever, but has cold intolerance cv - no chest pain pulm - no dyspnea GI - no emesis Physical Exam Physical Exam: gen - cachectic, pale, NAD mouth - MM dry heart - RRR, s1 s2 lungs - decreased BS bases, CTA b/l otherwise abd - distended, soft, mildly tender epigastric region ext - no edema psych - a/o x 3 Results & Data Results & Data ([facility]) Vital Signs (Past 12 Hours) not taken - on Comfort measures only PG Care Time/CCT Total # of Minutes Spent Total Time Spent with Patient: Total time spent is greater than 50% in coordination of care (as documented) at patient's floor/unit and/or counseling patient: Coding Level of Care Code 00281 Subseq Hosp Care Lvl 1 Diagnoses Palliative care patient Z51.5 Comfort measures only status Z51.5 Mesenteric ischemia K55.9 Gastric mass K31.89 Pulmonary embolus I26.99 PVT (portal vein thrombosis) I81 Hypophosphatemia E83.39 Hypocalcemia E83.51 Hypokalemia E87.6 Transaminitis R74.01 Severe protein-calorie malnutrition E43 Refeeding syndrome E87.8 Vitamin D deficiency E55.9 PAF (paroxysmal atrial fibrillation) I48.0 BPH (benign prostatic hyperplasia) N40.0 Celiac disease K90.0 Vitamin K deficiency E56.1 Failure to thrive R62.7 Failure to thrive age range: in adult Chronic deep vein thrombosis (DVT) I82.509 GERD (gastroesophageal reflux disease) K21.9 Hypothyroid E03.9 Anemia D64.9 Anemia type: other cause (1) Failure to thrive Failure to thrive age range: in adult Qualified Code(s): R62.7 - Adult failure to thrive (2) Anemia Anemia type: other cause
--- NOTE | 2021-02-07 19:38 | Hospitalist Progress Note ---
Date of Service February 07, 2021 Assessment & Plan (1) Palliative care patient: Plan: cont comfort care measures despite his celiac ok to liberalize his diet at his request given his status will contact long term biomedical equipment tech on Monday to determine if patient can re turn to [facility] on hospice / [employer] saji gave permission to call pt's (patient requested we do such) attempted to call Portia, pt's , at # given to us by the long term - no answer, went straight to voicemail, did not leave message as I cannot confirm if this is indeed the pt correct number (2) Comfort measures only status: (3) Mesenteric ischemia: (4) Gastric mass: (5) Pulmonary embolus: (6) PVT (portal vein thrombosis): (7) Hypophosphatemia: (8) Hypocalcemia: (9) Hypokalemia: (10) Transaminitis: (11) Severe protein-calorie malnutrition: (12) Refeeding syndrome: (13) Vitamin D deficiency: (14) PAF (paroxysmal atrial fibrillation): (15) BPH (benign prostatic hyperplasia): (16) Celiac disease: (17) Vitamin K deficiency: (18) Failure to thrive: (19) Chronic deep vein thrombosis (DVT): (20) GERD (gastroesophageal reflux disease): (21) Hypothyroid: (22) Anemia: Admission and Anticipated Discharge Date Admission Date: January 15, 2021 Subjective had mild abd pain earlier today dose of morphine is adequate however; offered to adjust it but he again stated the dose was fine denies vomiting 1 episode of diarrhea only asked for blankets, hot chocolate and cheerios during the visit I told him I attempted to call his today - no answer, went straight to voicemail previous attending had no luck either Review of Systems Review of Systems: gen - again c/o feeling cold, weak, tired CV - no cp pulm - no dyspnea GI - intermittent abd pain Physical Exam Physical Exam: gen - cachectic, pale, NAD, shivering mouth - MM dry heart - RRR, s1 s2 lungs - decreased BS bases, CTA b/l otherwise abd - distended, soft, mildly tender again today ext - no edema, pulses 1+ b/l psych - a/o x 3 PG Care Time/CCT Total # of Minutes Spent Total Time Spent with Patient: Total time spent is greater than 50% in coordination of care (as documented) at patient's floor/unit and/or counseling patient: Coding Level of Care Code 99258 Subseq Hosp Care Lvl 1 Diagnoses Palliative care patient Z51.5 Comfort measures only status Z51.5 Mesenteric ischemia K55.9 Gastric mass K31.89 Pulmonary embolus I26.99 PVT (portal vein thrombosis) I81 Hypophosphatemia E83.39 Hypocalcemia E83.51 Hypokalemia E87.6 Transaminitis R74.01 Severe protein-calorie malnutrition E43 Refeeding syndrome E87.8 Vitamin D deficiency E55.9 PAF (paroxysmal atrial fibrillation) I48.0 BPH (benign prostatic hyperplasia) N40.0 Celiac disease K90.0 Vitamin K deficiency E56.1 Failure to thrive R62.7 Failure to thrive age range: in adult Chronic deep vein thrombosis (DVT) I82.509 GERD (gastroesophageal reflux disease) K21.9 Hypothyroid E03.9 Anemia D64.9 Anemia type: other cause (1) Anemia Anemia type: other cause (2) Failure to thrive Failure to thrive age range: in adult Qualified Code(s): R62.7 - Adult failure to thrive
[2021-02-07] MEDS: MIRTAZAPINE SOLTAB 15 MG PO SCH (20:17)
[2021-02-08] MEDS: LEVOTHYROXINE SODIUM 50 MCG TABLET PO SCH (06:10)
[2021-02-08] MEDS: LACTASE 3000 UNIT TAB PO SCH ×3 (09:47→17:35)
[2021-02-08] MEDS: PANTOprazole 40 MG in SYRINGE 0 ML IV SCH (09:47)
[2021-02-08] MEDS: PANCREAZE (LIPASE 10,500U) CAP PO SCH ×2 (09:48→12:48)
[2021-02-08] MEDS: FLUTICASONE FUROATE 200MCG 14 PUFFS/INHALER INH SCH (09:48)
[2021-02-08] MEDS: busPIRone 5 MG TAB PO SCH (09:48)
[2021-02-08] MEDS ORDERED: LOPERAMIDE HCL 2 MG CAP PO STA (15:11)
--- NOTE | 2021-02-08 17:23 | Discharge Summary ---
Date of Service date of admission - January 15, 2021 date of discharge - February 08, 2021 Admission HPI Per Admitting Provider 60 yo M with hx severe protein calorie malnutrition, PAF, chronic DVT, celiac disease (noncompliant with gluten-free diet) who was brought to the ER from [facility] for severe muscle spasm. Upon presentation in the ER, patient was unable to move his arms due to tetany. Lab evaluation showed Ca < 5. Function improved slightly after administration of 1g Ca gluconate in ER. Mr. Pascual states he's been feeling ill for a few days. He eats a diet of mostly rice, potatoes, chips and tea. Says he isn't given/able to eat much meat, made no mention of any vegetable intake. He also states that he is given Ensure drinks at the shelter but isn't able to tolerate drinking those compared to the Boost at the hospital, and hasn't been gaining any weight despite trying to eat rice and potatoes. He says he tries to take all of his medications but he has been unable to keep them down for the last day due to nausea and emesis. No diarrhea or pain with urination. He states he's had worsening left sided abdominal pain, and indicates pain over his lower left ribcage. Principal Diagnosis 1. tetany 2nd to severe hypocalcemia 2. gastric mass - likely cancer 3. severe protein calorie malnutrition 4. mesenteric ischemia with portal vein gas 5. portal vein thrombosis 6. pulmonary embolus 7. coagulopathy likely 2nd to vitamin K deficiency 8. uncontrolled celiac disease Discharge Exam gen - cachectic, pale, ill-appearing, very weak face - muscle wasting mouth - MM dry heart - RRR, s1 s2 lungs - decreased BS bases, CTA b/l otherwise abd - distended, soft, mildly tender again today ext - no edema, pulses 1+ b/l psych - a/o x 3 Discharge Data Allergies Allergy/AdvReac Type Severity Reaction Status Date / Time Penicillins Allergy Unknown unknown Verified 01/28/21 09:09 gluten AdvReac Unknown GI SYMPTOMS Verified 01/28/21 09:09 lactose AdvReac Gastrointestinal Verified 01/28/21 09:09 Upset Consultations [facility] Gastroenterology General Surgery Palliative Care Routine Procedures Performed Operation Date: 01/28/21 16:30 Actual Procedures p Colonoscopy Biopsy Cytology - Jeannette Shields, s EGD Biopsy Cytology - Jeannette Shields DO Ordered Studies Liver Ultrasound 01/17/21 19:27 US liver HISTORY: 60 years-old Male elevated LFTs acute right upper quadrant abdominal pain with elevated LFTs COMPARISON: CT abdomen pelvis 09/22/2019 TECHNIQUE: Multiple real-time sonographic images of the abdominal right upper quadrant were obtained assessing grayscale appearance and color flow FINDINGS: Streak bowel gas limits the study. The pancreas left hepatic lobe is not well visualized. Unremarkable gallbladder without wall thickening, shadowing cholelithiasis or pericholecystic fluid. Normal common bile duct measures 3 mm. IMPRESSION: Limited exam secondary to obscuring bowel gas. No cholelithiasis or sonographic evidence of acute cholecystitis. ACT 112: Negative or not required by law. The above report was generated using voice recognition software. It may contain grammatical, syntax or spelling errors. Electronically signed by: Vikram Garcia M.D. 01/17/2021 10:02 AM Abdomen/Pelvis CT 01/26/21 15:[address] WITH IV AND ORAL CONTRAST CT DOSE: 252.01 mGy.cm HISTORY: severe celiac disease; diarrhea. eval other path TECHNIQUE: Multiaxial CT images of the abdomen and pelvis were performed following the use of intravenous and oral contrast. A dose lowering technique was utilized adhering to the principles of ALARA. COMPARISON STUDY: Abdomen and pelvis CT 09/22/2019. FINDINGS: Small left pleural effusion. Focal consolidation within the left lower lobe posteriorly is nonspecific but favors atelectasis. There is a filling defect seen within a subsegmental branch of the right lower lobe pulmonary artery consistent with a pulmonary embolus. This is best seen on image 25. The bones are osteopenic. No suspicious lytic or blastic osseous lesions. Thickened and edematous distal esophagus and the majority the stomach. Diffuse body wall edema. Small to moderate bilateral hydroceles are noted. Normal caliber abdominal aorta. No retroperitoneal lymphadenopathy. The bladder is decompressed and not well visualized. There is a small amount of ascites. There are few left portal veins which appear thrombosed. There is also a small amount of gas within the left portal veins. This is best seen on image 69. Subtle heterogeneous enhancement within the left hepatic lobe at the areas of the portal vein thrombosis. The main portal vein and superior mesenteric vein are patent. No definite pneumoperitoneum or pneumatosis identified. The pancreas, adrenal glands, left kidney are unremarkable. There is a punctate stone within the right kidney. No hydronephrosis. The gallbladder is decompressed but appears within normal limits. Suboptimal evaluation for bowel pathology due to the lack of intraperitoneal fat. Gas and fluid-filled colon which remains distended. There are multiple mildly dilated fluid-filled loops of small bowel seen throughout the abdomen. No definite transition point to suggest a bowel obstruction. Therefore, this favors a diarrheal illness/gastroenteritis or ileus. IMPRESSION: 1. Thrombus involving some of the left portal veins. There is also portal venous gas adjacent to these areas of thrombus within the left hepatic lobe which demonstrates heterogeneous enhancement. This could be seen in the setting of an emphysematous hepatitis or possibly related to portal venous gas in the setting of ischemic bowel. However, there is no definite pneumoperitoneum or pneumatosis identified. 2. Thickened and edematous distal esophagus and stomach suggesting a nonspecific gastritis. 3. Multiple distended and fluid-filled loops of large and small bowel seen throughout the abdomen. No clear transition point to suggest an obstruction. Therefore, this favors a diarrheal illness/gastritis or ileus. 4. Small left pleural effusion. 5. Right lower lobe subsegmental pulmonary embolus. 6. These findings were discussed with Dr. Mishra at 7:23 PM on 01/26/2021. ACT 112: Negative or not required by law. Electronically signed by: Hasmukh Navarro M.D. 01/26/2021 7:23 PM Abdomen/Pelvis CT 02/04/21 02:[address] WITH IV CONTRAST CT DOSE: 350.96 mGy.cm HISTORY: severe abdominal pain TECHNIQUE: Multiaxial CT images of the abdomen and pelvis were performed following the use of intravenous contrast. A dose lowering technique was utilized adhering to the principles of ALARA. COMPARISON STUDY: Abdomen and pelvis CT 01/09/2021. FINDINGS: There are few faint patchy groundglass densities within the lung bases. Significant progression of the extensive portal venous gas within the liver. There is also pneumatosis within the stomach and loops of small bowel bowel within the abdomen. This most pronounced within the right side of the abdomen. There is no pneumoperitoneum. No suspicious lytic or blastic osseous lesions. The main portal vein is patent. Thrombus within the left portal vein appears to have resolved in the interval. There is heterogeneous enhancement within the liver. A 5 mm stone within the right kidney. Normal left kidney. No hydronephrosis. The pancreas and gallbladder are unremarkable. There is gas within the superior mesenteric veins. The bladder is unremarkable. Dilated loops of small bowel are seen throughout the abdomen. No clear transition point. Therefore, this could represent an ileus or partial small bowel obstruction. No retroperitoneal lymphadenopathy. Normal caliber abdominal aorta. The spleen is not identified and may be surgically absent. Small hiatus hernia. Mild thickening at the distal esophagus is again noted. Diffuse body wall edema. Bi lateral hydroceles are again noted. IMPRESSION: 1. Significant progression of the portal venous gas with multiple areas of pneumatosis seen within the dilated loops of small bowel. Therefore, this is highly suspicious for ischemic bowel. 2. There is also suggestion of pneumatosis involving the stomach. 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 3. Dilated loops of small bowel without a clear transition point. This favors an ileus. A partial small bowel obstruction could also have a similar appearance. 4. Right-sided nephrolithiasis. No hydronephrosis. ACT 112: Negative or not required by law. Electronically signed by: Hasmukh Navarro M.D. 02/04/2021 8:30 AM Chest X-Ray 02/04/21 05:44 XR chest 1V portable HISTORY: ng placement COMPARISON: Chest 09/22/2019. FINDINGS: No pneumothorax. The lungs are hyperexpanded with apical predominant emphysematous changes. Venous gas is noted within the liver. No focal lung consolidations. No evidence for pulmonary edema. Nasogastric tube terminates in the gastroesophageal junction. This could be advanced by proximal a 5 to 10 cm. Multiple distended gas-filled loops of large and small bowel are noted. IMPRESSION: 1. Nasogastric tube terminates at the gastroesophageal junction. This could be advanced by approximately 5 to 10 cm. 2. Portal venous gas and multiple distended loops of large and small bowel are again seen within the abdomen. ACT 112: Negative or not required by law. Electronically signed by: Hasmukh Navarro M.D. 02/04/2021 8:24 AM Hospital Course (1) Palliative care patient: The patient had a protracted hospitalization 2nd to severe electrolyte disturbances in the setting of severe protein calorie malnutrition from uncontrolled celiac disease (and probable gastric cancer - see below). He had severe hypocalcemia, hypokalemia, hypomagnesemia, and hypophosphatemia. Hypocalcemia led to tetany at time of presentation. He likely had refeeding syndrome as well, with refractory hypokalemia/hypomagnesemia. GI intolerance and diarrhea persisted despite compliance with gluten-free diet during the hospitalization. Additionally, he had severe coagulopathy at time of admission with INR of 9.5 - likely due to vitamin K deficiency. Coagulopathy resolved with vitamin K administration. As the patient's protracted stay continued he often complained of intermittent abdominal pain. Repeat CT scan of the abdomen/pelvis showed portal vein thrombosis, pulmonary embolus, and gas in the portal vein. GI and general surgery saw patient in consult. Initially it was uncertain how/why he had developed portal vein gas but a subsequent CT scan showed worsening portal vein gas & pneumatosis 2nd to mesenteric ischemia. He also underwent EGD by [employer] showing a large gastric mass. Although biopsy results were inconclusive it was highly suspicious he had gastric cancer (or lymphoma). The patient's electrolyte deficiencies, failure to thrive, and malnutrition persisted despite supportive care. His abdominal pain also continued. He was deemed NOT a surgical candidate for the mesenteric ischemia. Palliative care was consulted, and after multiple discussions, the patient was transitioned to a palliative care pathway/comfort care pathway. Vital signs, daily labs, and unnecessary medications were stopped. Focus of care was on treating his abdominal pain & other symptoms. The medical radiation therapist/medical team at [facility] was contacted and they have accepted Mr Pascual back on comfort care measures. Code status is DNR/DNI. Goal will be to keep Mr Pascual comfortable at the half-way and avoid re- hospitalization, if possible, unless pain control is not successful. Of note - the patient had requested we contact his , Portia, to update her on his worsening status. After obtaining permission from the half-way system we did indeed attempt to contact his on multiple occasions but this was not successful. (2) Comfort measures only status: (3) Mesenteric ischemia: (4) Gastric mass: (5) Pulmonary embolus: (6) PVT (portal vein thrombosis): (7) Tetany due to hypocalcemia: (8) Hypocalcemia: (9) Hypomagnesemia: (10) Hypophosphatemia: (11) Hypokalemia: (12) Transaminitis: (13) Severe protein-calorie malnutrition: (14) Refeeding syndrome: (15) Vitamin D deficiency: (16) PAF (paroxysmal atrial fibrillation): (17) BPH (benign prostatic hyperplasia): (18) Celiac disease: (19) Vitamin K deficiency: (20) Failure to thrive: (21) Chronic deep vein thrombosis (DVT): (22) GERD (gastroesophageal reflux disease): (23) Hypothyroid: (24) Anemia: Total Time Total Time Spent Total Time Spent (In Minutes): 50 Discharge Plan Discharge Items [facility] Reason For Visit: ELECTROLYTE DISTURBANCE Discharge Diagnosis: 1. Severe protein calorie malnutrition due to celiac disease, probable gastric cancer (or lymphoma), and mesenteric ischemia 2. Mesenteric ischemia - recurrent episodes 3. Portal vein thrombosis 4. Pulmonary emboli 5. Severe hypocalcemia with resulting tetany 6. Severe hypokalemia 7. Severe hypomagnesemia 8. Coagulopathy due to vitamin K deficiency 9. Abnormal LFTs 10. GERD 11. Hypothyroidism Activity: As commented below Activity Comment: bedrest, limited activity (transfers to bedside commode, bathroom, chair) Non-emergency contact: Primary Care Provider Call non-emergency contact if: you have any medication questions, your symptoms worsen, your pain is not controlled and your pain is worsening Follow-up/Referrals: Mike CHEUNG [Primary Care Provider] - Diet: Gluten Free and Other - See Diet Comment Diet Comment: Soy milk/soy products in miguelina of milk-based products Addtl Attending Provider Instructions: Mr Pascual was hospitalized from 01/15/21 to 02/08/21 for tetany due to severe hypocalcemia. In addition he reported weight loss, failure to thrive, and severe diarrhea. He had additional electrolyte disturbances as noted above in the "discharge diagnosis" section. Despite correction of his electrolytes, treatment of his diarrhea, IV fluids, etc the patient continued to do poorly. He had progressive weight loss during the stay. Abdominal pain would come & go. A CT of the abdomen and pelvis demonstrated portal vein thrombosis, portal vein gas (likely due to mesenteric ischemia), pulmonary emboli, and colitis/enteritis. He underwent an EGD demonstrating a large gastric mass. Biopsies were inconclusive of this mass, but highly suspicious for gastric cancer vs lymphoma. The patient's abdominal pain worsened later in his stay despite supportive care. A repeat CT scan of the abdomen showed that the portal vein gas was worse and he had worsening signs of mesenteric ischemia. He was deemed NOT a candidate to intervene on the gastric mass nor the mesenteric ischemia by surgery. Palliative care was consulted, and on the week of January 31 he was transitioned to COMFORT CARE MEASURES ONLY. At time of transfer back to [facility] he will remain on comfort care measures with DNR/DNI. Focus will be on maintaining comfort, controlling pain, controlling nausea/diarrhea, etc. Vital signs, labs, etc were discontinued at [facility]. Unnecessary medications have been discontinued. He should NOT be re-hospitalized unless symptoms/pain/etc cannot be controlled. Pending Studies at Discharge: No Stand-Alone Forms: My [facility] Skilled Items Patient informed of condition?: Yes Discharge Level of Care: Other Communicable Disease: No Discharge Prognosis: Deteriorating Lines: None Urinary Catheter: No Medications and DC Order Prescriptions: New lorazepam 0.5 mg Tablet 0.5 mg PO Q4H PRN (Reason: anxiety or sleep) Qty: 30 RF: 0 Creon 36,000-114,000- 180,000 unit Capsule,Delayed Release(Dr/Ec) 2 cap PO TIDM Qty: 180 RF: 0 morphine concentrate 100 mg/5 mL (20 mg/mL) solution 5 mg PO Q4H PRN (Reason: pain or air hunger) Qty: 30 RF: 0 loperamide 2 mg capsule 2 mg PO Q4H PRN (Reason: loose stool) Qty: 20 RF: 0 ondansetron 4 mg tablet,disintegrating 4 mg PO Q6H PRN (Reason: nausea and vomiting) Qty: 30 RF: 0 Continued acetaminophen [Tylenol Extra Strength] 500 mg Tablet 500 mg PO TID PRN (Reason: Pain) RF: 0 methyl salicylate-menthol Ointment 1 ea TOPICAL .UD RF: 0 buspirone 5 mg Tablet 5 mg PO BID RF: 0 tamsulosin 0.4 mg Capsule 0.4 mg PO HS RF: 0 mirtazapine 15 mg Tablet 15 mg PO HS RF: 0 levalbuterol tartrate [Xopenex HFA] 45 mcg/actuation Hfa Aerosol Inhaler 2 inh INHALATION QID PRN (Reason: Shortness Of Breath Or Wheezing) RF: 0 Alvesco 80 mcg/actuation Hfa Aerosol Inhaler 1 puff INHALATION BID RF: 0 Changed levothyroxine 25 mcg Tablet 50 mcg PO DAILY Qty: 0 RF: 0 Discontinued calcium carbonate [Tums] 200 mg calcium (500 mg) Tablet,Chewable 0 mg PO TID PRN (Reason: Heartburn) RF: 0 cyanocobalamin (vitamin B-12) [Vitamin B-12] 1,000 mcg/mL Solution 1,000 mcg subcut MO RF: 0 calcitriol 0.5 mcg Capsule 1 mcg PO BID RF: 0 lactase 3,000 unit Tablet 3,000 unit PO .QID UD PRN (Reason: ..) RF: 0 folic acid 1 mg Tablet 1 mg PO HS RF: 0 cholecalciferol (vitamin D3) [Vitamin D3] 25 mcg (1,000 unit) Tablet 125 mcg PO DAILY RF: 0 Creon 24,000-76,000 -120,000 unit Capsule,Delayed Release(Dr/Ec) 1 cap PO TIDM RF: 0 magnesium oxide 400 mg magnesium Tablet 800 mg PO BID RF: 0 Discharge Orders: Discharge Order (Routine); Ordered 02/08/21 Ordered By: Leo Sun Admission Data Admit Date/Time: 01/15/21 00:21 Attending Provider: Leo Sun Admit Provider: Larisa Resendiz Primary Care Provider: Mike CHEUNG Other Providers: Jonah Ovalle ; Jeannette Shields ; Raudel Flores ; Kate Goodwin ; Monique Ortiz Other Interventions: Discharge Summary Assessment (RN) Last Done: 02/08/21 17:27 Coding Level of Care Code D/C DAY MANAGEMENT >30 MINS Diagnoses Palliative care patient Z51.5 Comfort measures only status Z51.5 Mesenteric ischemia K55.9 Gastric mass K31.89 Pulmonary embolus I26.99 PVT (portal vein thrombosis) I81 Hypophosphatemia E83.39 Hypocalcemia E83.51 Hypokalemia E87.6 Transaminitis R74.01 Severe protein-calorie malnutrition E43 Refeeding syndrome E87.8 Vitamin D deficiency E55.9 PAF (paroxysmal atrial fibrillation) I48.0 BPH (benign prostatic hyperplasia) N40.0 Celiac disease K90.0 Vitamin K deficiency E56.1 Failure to thrive R62.7 Failure to thrive age range: in adult Chronic deep vein thrombosis (DVT) I82.509 GERD (gastroesophageal reflux disease) K21.9 Hypothyroid E03.9 Anemia D64.9 Anemia type: other cause Hypomagnesemia E83.42 Tetany due to hypocalcemia E83.51
== END 2021-02-08 18:46 | DRG 374 ==
LOC: ED 20:25 → SUATTDRO 01-15 00:21 → EDINP 01-15 00:21 → 2W 01-15 03:13 → 3E 01-29 16:07 → 1E 02-04 06:46 → 3E 02-04 09:11
DX: E56.1 Deficiency of vitamin K; Z90.81 Acquired absence of spleen; E03.9 Hypothyroidism, unspecified; K90.0 Celiac disease; K21.9 Gastro-esophageal reflux disease without esophagitis; E43 Unspecified severe protein-calorie malnutrition; I81 Portal vein thrombosis; K55.1 Chronic vascular disorders of intestine; E83.51 Hypocalcemia; I26.99 Other pulmonary embolism without acute cor pulmonale; I26.93 Single subsegmental thrombotic pulmonary embolism without acute cor pulmonale; Z66 Do not resuscitate; Z87.891 Personal history of nicotine dependence; R62.7 Adult failure to thrive; K92.2 Gastrointestinal hemorrhage, unspecified; C16.2 Malignant neoplasm of body of stomach; E83.42 Hypomagnesemia; R29.0 Tetany; I48.0 Paroxysmal atrial fibrillation; R74.01 Elevation of levels of liver transaminase levels; I82.509 Chronic embolism and thrombosis of unspecified deep veins of unspecified lower extremity; E87.6 Hypokalemia; Z91.19 Patient's noncompliance with other medical treatment and regimen; R79.1 Abnormal coagulation profile; Z88.0 Allergy status to penicillin; Z51.5 Encounter for palliative care; Z68.1 Body mass index [BMI] 19.9 or less, adult; E83.39 Other disorders of phosphorus metabolism

== ENCOUNTER 2021-03-24 14:32 | Inpatient (IN) ==
[2021-03-24 15:18] LABS: Basophils # (auto) 0.02 K/uL (0-0.2); Basophils % (auto) 0.3 %; Hematocrit (blood only) 28.6 % (42-52); Hemoglobin 9.6 g/dL (14.0-18.0); Immature Granulocytes # (auto) 0.03 K/uL (0.00-0.02); Immature Granulocytes % (auto) 0.4 %; Lymphocytes # (auto) 0.69 K/uL (1.2-3.4); Mean Corpuscular Hemoglobin 34.8 pg (25-34); Mean Corpuscular Hgb Conc 33.6 g/dL (32-36); Mean Corpuscular Volume 103.6 fL (80-100); Mean Platelet Volume 9.5 fL (7.4-10.4); Monocytes # (auto) 0.49 K/uL (0.11-0.59); Monocytes % (auto) 6.4 %; Neutrophils # (auto) 6.41 K/uL (1.4-6.5); Neutrophils % (auto) 83.9 %; Platelet Count 479 K/uL (130-400); RDW Coefficient of Variation 16.3 % (11.5-14.5); Red Blood Count 2.76 M/uL (4.7-6.1); White Blood Count 7.64 K/uL (4.8-10.8)
[2021-03-24] MEDS ORDERED: SODIUM CHLORIDE 0.9% 1000ML 1,000 ML IV STA (15:18)
[2021-03-24] MEDS ORDERED: SODIUM CHLORIDE 0.9% 1000ML 500 ML IV ONE (15:24)
[2021-03-24] MEDS ORDERED: ONDANSETRON INJ 2 MG/ML 2 ML VIAL IV STA (15:32)
[2021-03-24 15:36] LABS: INR 1.6 (0.9-1.1); Partial Thromboplastin Ratio 1.1; Partial Thromboplastin Time 30.1 Seconds (21.0-31.0); Prothrombin Time 16.1 Seconds (9.0-12.0)
[2021-03-24 15:39] LABS: Troponin I < 0.03 ng/ml (0-0.04)
--- NOTE | 2021-03-24 15:44 | XRay Report ---
SINGLE VIEW PELVIS; 3 VIEWS LEFT FEMUR CLINICAL HISTORY: Fall with left hip injury. FINDINGS: An AP view of the pelvis with AP, frog-leg, and crosstable lateral views of the left femur are obtained. Correlation is made with pelvic CT dated 02/04/2021. The skeletal structures are osteope letty. No fracture seen involving the bony pelvis or the right hip. There is an angulated intertrochant lashon fracture of the left proximal femur. Overlying soft tissue edema is noted. The distal left femur is intact. Moderate degenerative joint space narrowing is seen in the hips. The left knee joint is g rossly maintained. Mesh material projects over the pelvis. There is gaseous distention of the small b owel loops. IMPRESSION: 1. Angulated intertrochanteric fracture of the left proximal femur. 2. The bony pelvis and right hip appear intact. 3. There is nonspecific gaseous distention of the small bowel loops. Correlate clinically for evidenc e of ileus or developing obstruction. Electronically signed by: Lashon Cevallos M.D. 03/24/2021 3:43 PM
[2021-03-24 15:55] LABS: Alanine Aminotransferase 30 U/L (7-52); Albumin Globulin Ratio 0.7 (0.9-2); Albumin Level 2.4 gm/dl (3.4-5.0); Alkaline Phosphatase 220 U/L (34-104); Anion Gap 7 (3-11); Aspartate Aminotransferase 32 U/L (13-39); BUN Creatinine Ratio 29.3 (10-20); Bilirubin,Total 0.2 mg/dl (0.2-1.0); Blood Urea Nitrogen 12 mg/dl (6-23); Calcium 4.8 mg/dl (8.5-10.1); Carbon Dioxide 24 mmol/L (21-32); Chloride 108 mmol/L (98-107); Est GFR (African American) 146.1 ml/min; Globulin 3.4 gm/dl (2.5-4.0); Glucose 105 mg/dl (70-99(Fasting)); Magnesium 1.1 mg/dl (1.7-2.4); Phosphorus 1.2 mg/dl (2.5-4.9); Potassium 3.3 mmol/L (3.5-5.1); Sodium 139 mmol/L (136-145); Total Protein 5.8 gm/dl (6.0-8.3)
[2021-03-24] MEDS ORDERED: CALCIUM GLUCONATE 1,000 MG/60 ML BAG IV STA (16:02)
[2021-03-24] MEDS ORDERED: MAGNESIUM SULFATE / D5W 1 GM/100 ML BAG IV STA (16:02)
--- NOTE | 2021-03-24 16:07 | CT Scan Report ---
CT SCAN OF THE BRAIN WITHOUT IV CONTRAST CLINICAL HISTORY: Fall. COMPARISON STUDY: No priors. TECHNIQUE: Unenhanced axial CT scan of the brain is performed from the vertex to the skull base. A do se lowering technique was utilized adhering to the principles of ALARA. CT DOSE: 1022.54 mGy.cm FINDINGS: Brain parenchyma: There are age-related involutional changes noting minimal subcortical and perivent ricular microangiopathic change. There is no hemorrhage, mass effect, or evidence of acute territoria l ischemia by CT criteria. Garvin-white matter differentiation is preserved. No extra-axial fluid colle ction is seen. Ventricles, sulci, cisterns: Prominent secondary to involutional change. Intracranial vasculature: Intracranial vessels at the skull base are normal as visualized. Calvarium: The skeletal structures are osteopenic. No depressed calvarial fracture is identified. Sinuses and mastoids: There is mild mucosal thickening in the maxillary antra. The remaining paranasa l sinuses are clear. The mastoid air cells are well pneumatized. Orbits: The bony orbits are grossly intact. IMPRESSION: There is no hemorrhage, mass effect, or evidence of acute territorial ischemia by CT kierstent jeremias. ACT 112: Negative or not required by law. Electronically signed by: Kushal Cevallos M.D. 03/24/2021 4:06 PM
[2021-03-24] MEDS: HYDROmorphone INJ 0.5 MG/0.5 ML SYR IV PRN ×4 (16:09→22:12)
--- NOTE | 2021-03-24 16:09 | CT Scan Report ---
CT OF THE CERVICAL SPINE WITHOUT CONTRAST CLINICAL HISTORY: Fall. COMPARISON STUDY: No previous studies for comparison. TECHNIQUE: Helical axial images of the cervical spine were obtained without IV contrast. Sagittal a nd coronal reconstructions were viewed. Automated exposure control was utilized for the study. A do se lowering technique was utilized adhering to the principles of ALARA. FINDINGS: Alignment of the cervical spine is anatomic. Vertebral body heights are maintained. No acut e cervical spine fracture or subluxation is present. There is no prevertebral edema. Facet joints are intact. Mild to moderate multilevel degenerative changes within the cervical spine are present. Old T2 and T3 compression fractures are unchanged since chest CT of March 11, 2020. IMPRESSION: No acute cervical spine fracture or subluxation. ACT 112: Negative or not required by law. Electronically signed by: Virgil Gross M.D. 03/24/2021 4:08 PM
[2021-03-24] MEDS ORDERED: POTASSIUM PHOSPHATE 9 MMOL in SODIUM CHLORIDE 0.9% 250 ML IV ONE (16:30)
--- NOTE | 2021-03-24 17:05 | History & Physical Report ---
Date of Service March 24, 2021 Assessment & Plan (1) Hip fracture: Plan: -X-ray showed angulated intertrochanteric fracture of the left proximal femur. -Anesthesia consult placed for femoral nerve block. -Ortho consult placed. (2) Syncope and collapse: Plan: - Likely due to malnutrition/debiliation, however must consider pulmonary embolism and cardiac ischemia as potential causes. Patient has a history of VTE and was recommended to be on chronic anticoagulation however is supratherapeutic on INR due to vitamin K deficiency. Heart rate is 98. Denies shortness of breath, is not hypoxic, SaO2 99% on room air. Initial troponin less than 0.03. - Cardiac echo to be performed in a.m. - 0.9 NS IVF (3) Hypokalemia: Plan: -K+ 3.3 with a Mg++ 1.1. -Replete K+ with 21 mmol K-phos -Received 1 g of magnesium in ED. Further repletion of Mg+ with 4 g IV. -Recheck BMP at 2100. (4) Hypomagnesemia: Plan: Mg++ of 1.1. -Received 1 g of magnesium in ED. -We will continue to replete magnesium with 4 g IV. -Recheck BMP at 2100. (5) Hypophosphatemia: Plan: -Received -Recheck BMP at 2100. (6) Hypocalcemia: Plan: -Ca++ 4.8, ionized Ca++ 0.75. -Multifactorial - severe hypoalbuminemia, hypokalemia, hypomagnesemia, vitamin D deficiency, etc. -Received 1g of calcium gluconate in ED. -Recheck BMP at 2100. (7) Supratherapeutic INR: Plan: -INR 1.6, PT 16.1. Also present on last mission in January 2021. Patient is not on any anticoagulation. Likely due to vitamin K deficiency. Patient recommended to be on anticoagulation due to PVT diagnosed on last admission, but is high risk for supratherapeutic INR due to nutritional deficiency. (8) Gastric mass: (9) Mood disorder: Plan: -Continue Buspar 5 mg bid and Remeron (10) Failure to thrive: Plan: -Likely combination of celiac disease, suspected malignancy, and a possible lymphocytic colitis noted during last admission. -Repleting electrolytes as above. - (11) Malnutrition: Plan: -Protein 5.8, albumin 2.4. -2nd to uncontrolled celiac disease and now the suspected gastric ca. -Records indicate a past h/o microscopic colitis in 2018 requiring steroids. -Supplement thiamine. -See electrolyte abnormalities above (12) GERD (gastroesophageal reflux disease): Plan: -Continue PPI. (13) Atrial fibrillation: Plan: -30 minutes of atrial fibrillation during hospitalization several years ago. -None noted on hospitalization in January. (14) History of venous thromboembolism: Plan: -PVT seen on CT during last hospitalization in January. -Likely hypercoagulable due to suspected malignancy. -Will need lifelong anticoagulation - he has had VTE in the past -however he is supratherapeutic due to vitamin K deficiency from malnutrition. (15) Alkaline phosphatase elevation: Plan: - Seen during hospitalization in January. - 2/2 vitamin D deficiency History of Present Illness Chief Complaint: syncope Primary Care Provider: [facility] This is a chronically ill, severely malnourished 60-year-old male with past medical history of A. fib, VTE, GERD, severe hypocalcemia, hypomagnesemia, and recently identified gastric mass suspicious for gastric cancer or lymphoma who was brought to the ER from [facility] after a witnessed ground-level fall. Patient states he was ambulating and became dizzy and passed out. He suffered a occipital hematoma, left posterior arm abrasion, and left hip/groin pain. His only pain is in his left hip/groin, it is a 12/10 without radiation anywhere else. Denies chest pain, palpitations, SOB, visual changes, confusion, abdominal pain, nausea, vomiting. Imaging in ED revealed an angulated intertrochanteric fracture of the left proximal femur. Head and CT spine unremarkable. BMP revealed potassium of 3.3, magnesium 1.1, phosphorus 1.2, calcium 4.8. During patient's last admission in January, given CT findings of a gastric mass consistent with a gastric cancer lymphoma, patient expressed he would like to focus on comfort and pain control is made DNR/DNI. However upon conversation with patient in ED, he expresses to me that he wishes to be a full code and pursue aggressive measures for resuscitation in the event of a cardiac arrest. Allergies Allergy/AdvReac Type Severity Reaction Status Date / Time Penicillins Allergy Unknown unknown Verified 03/24/21 15:48 lactose AdvReac Intermediate Gastrointestinal Verified 03/24/21 15:48 Upset gluten AdvReac Unknown GI SYMPTOMS Verified 03/24/21 15:48 Home Medications Medication Instructions Recorded Confirmed Type buspirone 5 mg tablet 5 mg PO BID 01/15/21 03/24/21 History ciclesonide 80 mcg/actuation 1 puff INHALATION BID 01/15/21 03/24/21 History aerosol inhaler (Alvesco) mirtazapine 15 mg tablet 15 mg PO HS 01/15/21 03/24/21 History tamsulosin 0.4 mg capsule 0.4 mg PO HS 01/15/21 03/24/21 History ondansetron 4 mg disintegrating 4 mg PO Q6H PRN #30 tab 02/08/21 03/24/21 Rx tablet acetaminophen 300 mg-codeine 30 mg 1 tab PO TID PRN 03/24/21 03/24/21 History tablet albuterol sulfate 90 mcg/actuation 2 puff INHALATION QID PRN 03/24/21 03/24/21 History aerosol inhaler lactase 3,000 unit tablet 3,000 unit PO AC PRN 03/24/21 03/24/21 History morphine concentrate 100 mg/5 mL 5 mg PO BID PRN 03/24/21 03/24/21 History (20 mg/mL) oral solution Past Med/Surg History Medical History Anemia Anemia B12 deficiency Coagulopathy Elevated INR Failure to thrive Hypocalcemia Hypocalcemia Hypoglycemia Hypothyroid Inguinal hernia Metabolic acidosis Prolonged Q-T interval on ECG SBO (small bowel obstruction) Supratherapeutic INR Surgical History H/O splenectomy Family History Other No pertinent family history Social History Smoking Status: Never smoker Second Hand Exposure: No; Hx Alcohol Use: Yes Alcohol type: beer Hx Substance Use: No Preferred Language: Macedonian Communication Ability: Effective Commutator Presser Required: No Beliefs That Will Affect Care: None marital status: Current Living Situation: Other Current Living Situation Comment: [facility] Feels Safe at Home: Yes Assistive Devices: None Review of Systems Review of Systems: Constitutional: Repotrs dizziness; No fever, sweats or chills Eyes: No diplopia, no worsening or blurred vision ENT: normal hearing, no trouble swallowing Respiratory: No cough, sputum, dyspnea at rest or on exertion Cardiovascular: No chest pain, tightness or palpitations Abdomen: No pain, nausea, vomiting, diarrhea or constipation Musculoskeletal: Reporst left hip/groin pain; No calf pain, swelling Neurologic: No weakness, numbness/tingling, or balance problems Psychiatric: No anxiety or depression Skin: No rash or itch Physical Exam Physical Exam: General: cachectic and frail in appearance; awake, alert, no apparent distress Head: occipital hematoma; Normocephalic ENT: PERRL, EOMI, no pharyngeal exudate, mucous membranes moist Chest: Clear to auscultation, on room air, no adventitious breath sounds Cardiac: Regular rate and rhythm, no murmur, no JVD, normal peripheral pulses, good capillary refill Abdominal: NABS x 4 quadrants, soft, nontender to palpation, no rebound, guarding or tenderness Extremities: Normal inspection, no peripheral edema or erythema, calfs nontender to palpation Psych: Normal mood and affect Neuro: AAO x 3, strength intact bilaterally and rated 5/5, no motor deficits, speech is clear, no peripheral sensory deficits Skin: no rash or erythema Results & Data Results & Data ([facility]) Vital Signs (Past 12 Hours) Vital Signs Temp Pulse Resp BP Pulse Ox 03/24/21 16:14 36 C L 14 99 03/24/21 14:37 36.4 C L 98 H 18 104/53 L 97 Laboratory Results Abnormal lab results 03/24/21 03/24/21 03/24/21 Range/Units 15:10 15:10 15:15 RBC 2.76 L (4.7-6.1) M/uL Hgb 9.6 L (14.0-18.0) g/dL Hct 28.6 L (42-52) % MCV 103.6 H (80-100) fL MCH 34.8 H (25-34) pg RDW Std Deviation 61.0 H (36.4-46.3) fL RDW Coeff of Tevin 16.3 H (11.5-14.5) % Plt Count 479 H (130-400) K/uL Lymph # (Auto) 0.69 L (1.2-3.4) K/uL Immature Gran # (Auto) 0.03 H (0.00-0.02) K/uL PT 16.1 H (9.0-12.0) Seconds INR 1.6 H (0.9-1.1) Potassium 3.3 L (3.5-5.1) mmol/L Chloride 108 H (98-107) mmol/L Creatinine 0.41 L (0.6-1.4) mg/dl BUN/Creatinine Ratio 29.3 H (10-20) Glucose 105 H (70-99(Fasting)) mg/dl Calcium 4.8 L* (8.5-10.1) mg/dl Phosphorus 1.2 L* (2.5-4.9) mg/dl Magnesium 1.1 L (1.7-2.4) mg/dl Alkaline Phosphatase 220 H (34-104) U/L Total Protein 5.8 L (6.0-8.3) gm/dl Albumin 2.4 L (3.4-5.0) gm/dl Albumin/Globulin Ratio 0.7 L (0.9-2) Diagnostic Findings Femur X-Ray 03/24/21 14:40 SINGLE VIEW PELVIS; 3 VIEWS LEFT FEMUR CLINICAL HISTORY: Fall with left hip injury. FINDINGS: An AP view of the pelvis with AP, frog-leg, and crosstable lateral views of the left femur are obtained. Correlation is made with pelvic CT dated 02/04/2021. The skeletal structures are osteopenic. No fracture seen involving the bony pelvis or the right hip. There is an angulated intertrochanteric fracture of the left proximal femur. Overlying soft tissue edema is noted. The distal left femur is intact. Moderate degenerative joint space narrowing is seen in the hips. The left knee joint is grossly maintained. Mesh material projects over the pelvis. There is gaseous distention of the small bowel loops. IMPRESSION: 1. Angulated intertrochanteric fracture of the left proximal femur. 2. The bony pelvis and right hip appear intact. 3. There is nonspecific gaseous distention of the small bowel loops. Correlate clinically for evidence of ileus or developing obstruction. Pelvis X-Ray 03/24/21 14:40 SINGLE VIEW PELVIS; 3 VIEWS LEFT FEMUR CLINICAL HISTORY: Fall with left hip injury. FINDINGS: An AP view of the pelvis with AP, frog-leg, and crosstable lateral views of the left femur are obtained. Correlation is made with pelvic CT dated 02/04/2021. The skeletal structures are osteopenic. No fracture seen involving the bony pelvis or the right hip. There is an angulated intertrochanteric fracture of the left proximal femur. Overlying soft tissue edema is noted. The distal left femur is intact. Moderate degenerative joint space narrowing is seen in the hips. The left knee joint is grossly maintained. Mesh material projects over the pelvis. There is gaseous distention of the small bowel loops. IMPRESSION: 1. Angulated intertrochanteric fracture of the left proximal femur. 2. The bony pelvis and right hip appear intact. 3. There is nonspecific gaseous distention of the small bowel loops. Correlate clinically for evidence of ileus or developing obstruction. Cervical Spine CT 03/24/21 15:32 CT OF THE CERVICAL SPINE WITHOUT CONTRAST CLINICAL HISTORY: Fall. COMPARISON STUDY: No previous studies for comparison. TECHNIQUE: Helical axial images of the cervical spine were obtained without IV contrast. Sagittal and coronal reconstructions were viewed. Automated exposure control was utilized for the study. A dose lowering technique was utilized adhering to the principles of ALARA. FINDINGS: Alignment of the cervical spine is anatomic. Vertebral body heights are maintained. No acute cervical spine fracture or subluxation is present. There is no prevertebral edema. Facet joints are intact. Mild to moderate multilevel degenerative changes within the cervical spine are present. Old T2 and T3 compression fractures are unchanged since chest CT of March 11, 2020. IMPRESSION: No acute cervical spine fracture or subluxation. Head CT 03/24/21 15:32 CT SCAN OF THE BRAIN WITHOUT IV CONTRAST CLINICAL HISTORY: Fall. COMPARISON STUDY: No priors. TECHNIQUE: Unenhanced axial CT scan of the brain is performed from the vertex to the skull base. A dose lowering technique was utilized adhering to the principles of ALARA. CT DOSE: 1022.54 mGy.cm FINDINGS: Brain parenchyma: There are age-related involutional changes noting minimal subcortical and periventricular microangiopathic change. There is no hemorrhage, mass effect, or evidence of acute territorial ischemia by CT criteria. Garvin- white matter differentiation is preserved. No extra-axial fluid collection is seen. Ventricles, sulci, cisterns: Prominent secondary to involutional change. Intracranial vasculature: Intracranial vessels at the skull base are normal as visualized. Calvarium: The skeletal structures are osteopenic. No depressed calvarial fracture is identified. Sinuses and mastoids: There is mild mucosal thickening in the maxillary antra. The remaining paranasal sinuses are clear. The mastoid air cells are well pneumatized. Orbits: The bony orbits are grossly intact. IMPRESSION: There is no hemorrhage, mass effect, or evidence of acute territorial ischemia by CT criteria. Medications Administered Hydromorphone HCl (Hydromorphone Inj 0.5 Mg/0.5 Ml Syr) 0.25 mg IV Q15M PRN PRN Reason: Pain Stop: 04/07/21 15:31 Last Admin: 03/24/21 16:31 Dose: 0.25 mg Documented by: [id number] Admin: 03/24/21 16:09 Dose: 0.25 mg Documented by: [id number] Code Status & VTE Plan Code Status Full Code VTE Prophylaxis Plan VTE Prophylaxis will be ordered: Yes Supervising Physician Co-Signing Physician Notes I have personally evaluated and examined this patient. I agree with assessment and plan of Paula Horton Pa-C. Patient became lightheaded and suffered a fall. This is likely secondary to chronic debilitation and severe protein calorie malnutrition however I cannot exclude more insidious factors such as pulmonary embolism and cardiac ischemia however I consider both of those to be unlikely. We will check troponins and perform an echocardiogram for hard signs of pulmonary embolism given the patient does have a suspicious history for gastric malignancy. Saturating 99% on room air. During my evaluation the patient is found a comfortable position is not experiencing any pain at this time. We will have a routine consult to anesthesia for possible femoral nerve block some not sure if the patient would be an appropriate candidate for surgery therefore I think having a backup plan for anesthesia and comfort care would be reasonable. Discussed that the patient previously was comfort measures only however in discussion with him and his they have decided to opt for aggressive measures and heroic should the patient suffer cardiac arrest. Admission to med telemetry given significant electrolyte disturbances. PG Care Time/CCT Total # of Minutes Spent Total Time Spent with Patient: Total time spent is greater than 50% in coordination of care (as documented) at patient's floor/unit and/or counseling patient: Coding Level of Care Code 81012 Initial Inpt Care Lvl 3 Diagnoses Hip fracture S72.009A Hypokalemia E87.6 Hypomagnesemia E83.42 Hypophosphatemia E83.39 Hypocalcemia E83.51 Supratherapeutic INR R79.1 Gastric mass K31.89 Mood disorder F39 Failure to thrive Syncope and collapse R55 Malnutrition E46 GERD (gastroesophageal reflux disease) K21.9 Atrial fibrillation I48.91 History of venous thromboembolism Z86.718 Alkaline phosphatase elevation R74.8
[2021-03-24] MEDS ORDERED: POTASSIUM PHOS 3 MMOL/1 ML INFUSION IV STA (18:02)
[2021-03-24] MEDS ORDERED: PHYTONADIONE 5 MG TAB PO STA (18:02)
[2021-03-24] MEDS ORDERED: ROPIVACAINE 0.5% 5 MG/ML 30 ML VIAL INFIL ONE (18:08)
--- NOTE | 2021-03-24 18:24 | Emergency Department Note ---
Impression & Plan Closed left hip fracture, Hypomagnesemia, Hypophosphatemia, Hypocalcemia, CHI (closed head injury) ED Provider Note INFORMANT: Patient ED PROVIDER(S): Jose Maria Dey MD CHIEF COMPLAINT: Left hip pain and fall PLAN: Disposition: Admitted Condition: Good Outpatient prescription management: none Referral: None MEDICAL DECISION MAKING: Patient presented because of a fall. He underwent x-ray imaging as well as CT imaging. Blood work was performed. The patient CT of the head and cervical spine were negative. X-ray imaging of the pelvis and hip revealed a left hip fracture. Consultation was made with Dr. Monroy of orthopedics. The patient will be admitted medically and orthopedics will consult. Blood work was concerning for hypocalcemia, hypophosphatemia, and hypomagnesemia. Patient was hydrated. He was given IV calcium, phosphorus, and magnesium after consultation with the ED pharmacist. Patient was treated with Dilaudid for pain. Consultation was made with the [facility] service. Patient was evaluated in the ER admitted. Triage Nursing notes reviewed and agree them. Vital Signs: reviewed and remarkable for borderline tachycardia and hypotension. Differential diagnosis: Fracture, dislocation, neurovascular compromise, compartment syndrome, soft tissue injury, as well as other pathologies. Diagnostics interpreted by me: ECG: Twelve-lead ECG reveals normal sinus rhythm with poor baseline data at [address] No ST elevation. No PVCs. Cardiac Monitoring: Cardiac monitoring ordered by me: The patient was placed on continuous cardiac monitoring and observed. It revealed a normal sinus rhythm at 98 beats per minute without ectopy or evidence of dysrhythmia. Imaging studies: CT of the head and cervical spine negative for acute traumatic injury. Imaging of the pelvis and femur reveal a left hip fracture. HPI: The patient is a 60 year old male with a past medical history of hypocalcemia, celiac disease, and gastric mass who presents to the Emergency Room with complaints of left hip pain. This started today and is from a wi tnessed fall. The patient also notes the following associated symptoms, patient notes feeling weak. He also notes some mild dizziness. The patient has was given pain medication at the present for relieving factors. Current pain is rated as 6/10. Patient did not ever bear weight. Pt denies LOC, headache, fevers, chills, diaphoresis, visual changes, neck pain, chest pain, breathing difficulties, nausea, vomiting, abdominal pain, back pain, melena, hematochezia, urinary symptoms, numbness, lymphadenopathy, rash, or other complaints. ROS: See above HPI for pertinent positives & negatives. A total of 10 systems reviewed and were otherwise negative. PAST MEDICAL HISTORY:See Below , celiac PAST SURGICAL HISTORY:See Below, FAMILY HISTORY:See Below SOCIAL HISTORY:See Below, incarcerated HOME MEDICATIONS:See Below ALLERGIES:See Below VITALS:See Below PHYSICAL EXAMINATION: GENERAL: Awake, alert, uncomfortable-appearing, in no distress HENT: Normocephalic, atraumatic. Oropharynx unremarkable. EYES: Normal conjunctiva. Sclera non-icteric. NECK: Inspection normal. Non-tender. Supple. No nuchal rigidity. FROM. No masses. RESPIRATORY: Clear to auscultation. No wheezes. No rales. Normal respiratory effort. CARDIAC: Borderline tachycardic rate. Normal rhythm. No murmurs. No rubs. Extremities warm and well perfused. Pulses equal. No JVD. GI: Soft, non-distended. No tenderness to palpation. No rebound or guarding. No masses. RECTAL: Deferred. MUSCULOSKELETAL: Left hip tenderness palpation. chest examination reveals no tenderness. The back is symmetrical on inspection without obvious abnormality. There is no CVA tenderness to palpation. No joint edema. LOWER EXTREMITIES: Calves are equal size bilaterally and non-tender. No edema. No discoloration. NEURO: Normal sensorium. No sensory or motor deficits noted. SKIN: No rash or jaundice noted. Jose Maria Dey MD Past Med/Surg History Medical History Anemia Anemia B12 deficiency Coagulopathy Elevated INR Failure to thrive Hypocalcemia Hypocalcemia Hypoglycemia Hypothyroid Inguinal hernia Metabolic acidosis Prolonged Q-T interval on ECG SBO (small bowel obstruction) Supratherapeutic INR Surgical History H/O splenectomy Family History Other No pertinent family history Social History Smoking Status: Never smoker Second Hand Exposure: No; Hx Alcohol Use: Yes Alcohol type: beer Hx Substance Use: No Preferred Language: Persian Communication Ability: Effective Assistant Product Manager Required: No Beliefs That Will Affect Care: None marital status: Current Living Situation: Other Current Living Situation Comment: [facility] Feels Safe at Home: Yes Assistive Devices: None Allergies Allergies Allergy/AdvReac Type Severity Reaction Status Date / Time Penicillins Allergy Unknown unknown Verified 03/24/21 15:48 lactose AdvReac Intermediate Gastrointestinal Verified 03/24/21 15:48 Upset gluten AdvReac Unknown GI SYMPTOMS Verified 03/24/21 15:48 Home Meds Home Medications Medication Instructions Recorded Confirmed buspirone 5 mg tablet 5 mg PO BID 01/15/21 03/24/21 ciclesonide 80 mcg/actuation 1 puff INHALATION BID 01/15/21 03/24/21 aerosol inhaler (Alvesco) mirtazapine 15 mg tablet 15 mg PO HS 01/15/21 03/24/21 tamsulosin 0.4 mg capsule 0.4 mg PO HS 01/15/21 03/24/21 acetaminophen 300 mg-codeine 30 mg 1 tab PO TID PRN 03/24/21 03/24/21 tablet albuterol sulfate 90 mcg/actuation 2 puff INHALATION QID PRN 03/24/21 03/24/21 aerosol inhaler lactase 3,000 unit tablet 3,000 unit PO AC PRN 03/24/21 03/24/21 morphine concentrate 100 mg/5 mL 5 mg PO BID PRN 03/24/21 03/24/21 (20 mg/mL) oral solution Previous Rx's Medication Instructions Recorded ondansetron 4 mg disintegrating 4 mg PO Q6H PRN #30 tab 02/08/21 tablet Results & Data (ED) Vital Signs Vital Signs - 24 hr 03/24/21 14:37 03/24/21 16:14 Temperature 36.4 C L 36 C L Temperature Source Temporal Artery Scan Oral Pulse Rate 98 H Respiratory Rate 18 14 Respiratory Depth Normal Blood Pressure 104/53 L Blood Pressure Mean 70 Blood Pressure Position Sitting Pulse Oximetry 97 99 Oxygen Delivery Method Room Air Room Air Sepsis Recent Fever Within 48 Hours No Sepsis New/Unexplained Change in Mental Status No Sepsis Action Taken by Nursing No Action Required Laboratory Data Result diagrams: 03/24/21 15:10 01/26/22 15:10 Lab Results 03/24/21 03/24/21 03/24/21 Range/Units 15:10 15:10 15:15 WBC 7.64 (4.8-10.8) K/uL RBC 2.76 L (4.7-6.1) M/uL Hgb 9.6 L (14.0-18.0) g/dL Hct 28.6 L (42-52) % MCV 103.6 H (80-100) fL MCH 34.8 H (25-34) pg MCHC 33.6 (32-36) g/dL RDW Std Deviation 61.0 H (36.4-46.3) fL RDW Coeff of Tevin 16.3 H (11.5-14.5) % Plt Count 479 H (130-400) K/uL MPV 9.5 (7.4-10.4) fL Immature Gran % (Auto) 0.4 % Neut % (Auto) 83.9 % Lymph % (Auto) 9.0 % Jessamine % (Auto) 6.4 % Eos % (Auto) 0.0 % Baso % (Auto) 0.3 % Neut # (Auto) 6.41 (1.4-6.5) K/uL Lymph # (Auto) 0.69 L (1.2-3.4) K/uL Jessamine # (Auto) 0.49 (0.11-0.59) K/uL Eos # (Auto) 0.00 (0-0.5) K/uL Baso # (Auto) 0.02 (0-0.2) K/uL Immature Gran # (Auto) 0.03 H (0.00-0.02) K/uL PT 16.1 H (9.0-12.0) Seconds INR 1.6 H (0.9-1.1) APTT 30.1 (21.0-31.0) Seconds PTT Ratio 1.1 Sodium 139 (136-145) mmol/L Potassium 3.3 L (3.5-5.1) mmol/L Chloride 108 H (98-107) mmol/L Carbon Dioxide 24 (21-32) mmol/L Anion Gap 7 (3-11) BUN 12 (6-23) mg/dl Creatinine 0.41 L (0.6-1.4) mg/dl Est Cr Clr Drug Dosing Not Reportable Est GFR ( Amer) 146.1 ml/min Est GFR (Non-Af Amer) 126.0 ml/min BUN/Creatinine Ratio 29.3 H (10-20) Glucose 105 H (70-99(Fasting)) mg/dl Calcium 4.8 L* (8.5-10.1) mg/dl Phosphorus 1.2 L* (2.5-4.9) mg/dl Magnesium 1.1 L (1.7-2.4) mg/dl Total Bilirubin 0.2 (0.2-1.0) mg/dl AST 32 (13-39) U/L ALT 30 (7-52) U/L Alkaline Phosphatase 220 H (34-104) U/L Troponin I < 0.03 (0-0.04) ng/ml Total Protein 5.8 L (6.0-8.3) gm/dl Albumin 2.4 L (3.4-5.0) gm/dl Globulin 3.4 (2.5-4.0) gm/dl Albumin/Globulin Ratio 0.7 L (0.9-2) Administered Medications Hydromorphone HCl (Hydromorphone Inj 0.5 Mg/0.5 Ml Syr) 0.25 mg IV Q15M PRN PRN Reason: Pain Stop: 04/07/21 15:31 Last Admin: 03/24/21 18:15 Dose: 0.25 mg Documented by: [id number] Admin: 03/24/21 16:31 Dose: 0.25 mg Documented by: [id number] Admin: 03/24/21 16:09 Dose: 0.25 mg Documented by: [id number] Sodium Chloride (Nss 1000ml) 1,000 mls @ 125 mls/hr IV .Q8H STA Stop: 03/24/21 23:17 Last Admin: 03/24/21 17:31 Dose: 125 mls/hr Documented by: [id number] Magnesium Sulfate/Dextrose (Magnesium Sulfate / D5w) 1 gm in 100 mls @ 50 mls/hr IV Q2H TIMOTEO Stop: 03/25/21 02:59 Last Admin: 03/24/21 18:59 Dose: 50 mls/hr Documented by: [id number] Discontinued Medications Sodium Chloride (Nss 1000ml) 500 mls @ 999 mls/hr IV .Q31M ONE Stop: 03/24/21 15:54 Last Admin: 03/24/21 16:57 Dose: 999 mls/hr Documented by: [id number] Magnesium Sulfate/Dextrose (Magnesium Sulfate / D5w) 1 gm in 100 mls @ 100 mls/hr IV NOW STA Stop: 03/24/21 17:01 Last Infusion: 03/24/21 18:15 Dose: 0 mls/hr Documented by: [id number] Admin: 03/24/21 16:58 Dose: 100 mls/hr Documented by: [id number] Calcium Gluconate () 1,000 mg in 60 mls @ 240 mls/hr IV NOW STA Stop: 03/24/21 16:16 Last Infusion: 03/24/21 17:12 Dose: 0 mls/hr Documented by: [id number] Admin: 03/24/21 16:57 Dose: 240 mls/hr Documented by: [id number] Potassium Phosphate 9 mmol/ (Sodium Chloride) 253 mls @ 88 mls/hr IV ONE ONE Stop: 03/24/21 19:22 Last Admin: 03/24/21 17:12 Dose: 88 mls/hr Documented by: [id number] Ondansetron HCl (Ondansetron Inj 2 Mg/Ml 2 Ml Vial) 4 mg IV NOW STA Stop: 03/24/21 15:33 Last Admin: 03/24/21 16:09 Dose: 4 mg Documented by: [id number] Phytonadione (Phytonadione 5 Mg Tab) 10 mg PO NOW STA Stop: 03/24/21 18:03 Last Admin: 03/24/21 18:59 Dose: 10 mg Documented by: [id number] Imaging Data Radiologist's Impression: Femur X-Ray 03/24/21 14:40 SINGLE VIEW PELVIS; 3 VIEWS LEFT FEMUR CLINICAL HISTORY: Fall with left hip injury. FINDINGS: An AP view of the pelvis with AP, frog-leg, and crosstable lateral views of the left femur are obtained. Correlation is made with pelvic CT dated 02/04/2021. The skeletal structures are osteopenic. No fracture seen involving the bony pelvis or the right hip. There is an angulated intertrochanteric fracture of the left proximal femur. Overlying soft tissue edema is noted. The distal left femur is intact. Moderate degenerative joint space narrowing is seen in the hips. The left knee joint is grossly maintained. Mesh material projects over the pelvis. There is gaseous distention of the small bowel loops. IMPRESSION: 1. Angulated intertrochanteric fracture of the left proximal femur. 2. The bony pelvis and right hip appear intact. 3. There is nonspecific gaseous distention of the small bowel loops. Correlate clinically for evidence of ileus or developing obstruction. Electronically signed by: Kushal Cevallos M.D. 03/24/2021 3:43 PM Pelvis X-Ray 03/24/21 14:40 SINGLE VIEW PELVIS; 3 VIEWS LEFT FEMUR CLINICAL HISTORY: Fall with left hip injury. FINDINGS: An AP view of the pelvis with AP, frog-leg, and crosstable lateral views of the left femur are obtained. Correlation is made with pelvic CT dated 02/04/2021. The skeletal structures are osteopenic. No fracture seen involving the bony pelvis or the right hip. There is an angulated intertrochanteric fracture of the left proximal femur. Overlying soft tissue edema is noted. The distal left femur is intact. Moderate degenerative joint space narrowing is seen in the hips. The left knee joint is grossly maintained. Mesh material projects over the pelvis. There is gaseous distention of the small bowel loops. IMPRESSION: 1. Angulated intertrochanteric fracture of the left proximal femur. 2. The bony pelvis and right hip appear intact. 3. There is nonspecific gaseous distention of the small bowel loops. Correlate clinically for evidence of ileus or developing obstruction. Electronically signed by: Kushal Cevallos M.D. 03/24/2021 3:[address] 03/24/21 15:32 CT OF THE CERVICAL SPINE WITHOUT CONTRAST CLINICAL HISTORY: Fall. COMPARISON STUDY: No previous studies for comparison. TECHNIQUE: Helical axial images of the cervical spine were obtained without IV contrast. Sagittal and coronal reconstructions were viewed. Automated exposure control was utilized for the study. A dose lowering technique was utilized adhering to the principles of ALARA. FINDINGS: Alignment of the cervical spine is anatomic. Vertebral body heights are maintained. No acute cervical spine fracture or subluxation is present. There is no prevertebral edema. Facet joints are intact. Mild to moderate multilevel degenerative changes within the cervical spine are present. Old T2 and T3 compression fractures are unchanged since chest CT of March 11, 2020. IMPRESSION: No acute cervical spine fracture or subluxation. ACT 112: Negative or not required by law. Electronically signed by: Virgil Gross M.D. 03/24/2021 4:[address] 03/24/21 15:32 CT SCAN OF THE BRAIN WITHOUT IV CONTRAST CLINICAL HISTORY: Fall. COMPARISON STUDY: No priors. TECHNIQUE: Unenhanced axial CT scan of the brain is performed from the vertex to the skull base. A dose lowering technique was utilized adhering to the principles of ALARA. CT DOSE: 1022.54 mGy.cm FINDINGS: Brain parenchyma: There are age-related involutional changes noting minimal subcortical and periventricular microangiopathic change. There is no hemorrhage, mass effect, or evidence of acute territorial ischemia by CT criteria. Garvin- white matter differentiation is preserved. No extra-axial fluid collection is seen. Ventricles, sulci, cisterns: Prominent secondary to involutional change. Intracranial vasculature: Intracranial vessels at the skull base are normal as visualized. Calvarium: The skeletal structures are osteopenic. No depressed calvarial fracture is identified. Sinuses and mastoids: There is mild mucosal thickening in the maxillary antra. The remaining paranasal sinuses are clear. The mastoid air cells are well pneumatized. Orbits: The bony orbits are grossly intact. IMPRESSION: There is no hemorrhage, mass effect, or evidence of acute territorial ischemia by CT criteria. ACT 112: Negative or not required by law. Electronically signed by: Kushal Cevallos M.D. 03/24/2021 4:06 PM Discharge Plan Visit Data Chief Complaint: Fall Stated Complaint: FALL, GROIN PAIN ED Provider: Jose Maria Dey Discharge Problem: Closed left hip fracture, Hypomagnesemia, Hypophosphatemia, Hypocalcemia, CHI (closed head injury)
[2021-03-24] MEDS ORDERED: POTASSIUM PHOSPHATE 21 MMOL in SODIUM CHLORIDE 0.9% 500 ML IV ONE (18:30)
--- NOTE | 2021-03-24 18:39 | XRay Report ---
XR chest 1V portable CLINICAL HISTORY: Syncope. COMPARISON STUDY: Chest CT March 11, 2020. Chest radiograph February 04, 2021. FINDINGS: There is no pneumothorax. Numerous left-sided rib fractures are present. The majority of th amelia were not present on prior exam of February 04, 2021. Several of these are mildly displaced. Left b asilar opacity is present. Cardiac size is normal. IMPRESSION: 1. Numerous left-sided rib fractures. Several ribs may be fractured in multiple locations. These frac tures are likely acute to subacute. No pneumothorax. 2. Mild left basilar opacity. ACT 112: Negative or not required by law. Electronically signed by: Virgil Gross M.D. 03/24/2021 6:38 PM
[2021-03-24] MEDS: MAGNESIUM SULFATE / D5W 1 GM/100 ML BAG IV SCH ×2 (18:59→22:03)
[2021-03-24] MEDS ORDERED: ACETAMINOPHEN W/CODEINE #3 1 TAB PO PRN (19:12)
[2021-03-24] MEDS ORDERED: POLYETHYLENE (MIRALAX) 17 GM PACK PO PRN (19:12)
[2021-03-24] MEDS ORDERED: ONDANSETRON 4 MG OD TAB PO PRN (19:12)
[2021-03-24] MEDS ORDERED: ALBUTEROL HFA 8 GM INHALER INH PRN (19:12)
[2021-03-24] MEDS ORDERED: MoRPHine SULFATE 5 MG/0.25 ML UDP PO PRN (19:40)
[2021-03-24] MEDS ORDERED: busPIRone 5 MG TAB PO SCH (21:00)
[2021-03-24] MEDS ORDERED: THIAMINE HCL 300 MG in SODIUM CHLORIDE 0.9% 50 ML IV SCH (21:00)
[2021-03-24] MEDS ORDERED: MIRTAZAPINE TAB 15 MG TAB PO SCH (21:00)
[2021-03-24] MEDS ORDERED: TAMSULOSIN HCL 0.4 MG CAP PO SCH (21:00)
[2021-03-24 21:50] LABS: Calcium 4.8 mg/dl (8.5-10.1); Creatinine Clr Calc Pharmacy 127.3 ml/min; Est GFR (African American) 147.5 ml/min; Est GFR (Non-African American) 127.3 ml/min; Potassium 3.3 mmol/L (3.5-5.1)
[2021-03-24 22:09] LABS: Magnesium 5.7 mg/dl (1.7-2.4)
--- NOTE | 2021-03-25 00:27 | Communication Note ---
Date of Service: March 25, 2021 Informed about Magnesium 1.1->5.7. Most likely this is due to lab drawn while Magnesium was infusing. Held Mg infusion when notified. Rechecking labs several hours after this. HypoCa and Hypophos also noted.
[2021-03-25 01:15] LABS: Hematocrit (blood only) 30.4 % (42-52); Hemoglobin 10.3 g/dL (14.0-18.0); Mean Corpuscular Hemoglobin 34.9 pg (25-34); Mean Corpuscular Hgb Conc 33.9 g/dL (32-36); Mean Corpuscular Volume 103.1 fL (80-100); Mean Platelet Volume 9.5 fL (7.4-10.4); Platelet Count 497 K/uL (130-400); RDW Standard Deviation 59.8 fL (36.4-46.3); Red Blood Count 2.95 M/uL (4.7-6.1); White Blood Count 7.97 K/uL (4.8-10.8)
[2021-03-25 01:26] LABS: INR 1.7 (0.9-1.1); Partial Thromboplastin Ratio 1.2; Partial Thromboplastin Time 32.4 Seconds (21.0-31.0); Prothrombin Time 16.7 Seconds (9.0-12.0)
[2021-03-25] MEDS: MAGNESIUM SULFATE / D5W 1 GM/100 ML BAG IV SCH ×4 (01:34→06:39)
[2021-03-25 01:38] LABS: Basophils # (auto) 0.01 K/uL (0-0.2); Basophils % (auto) 0.1 %; Howell-Jolly Bodies 1+; Immature Granulocytes # (auto) 0.04 K/uL (0.00-0.02); Immature Granulocytes % (auto) 0.5 %; Lymphocytes # (auto) 0.84 K/uL (1.2-3.4); Lymphocytes % (auto) 10.5 %; Monocytes # (auto) 0.62 K/uL (0.11-0.59); Monocytes % (auto) 7.8 %; Neutrophils # (auto) 6.46 K/uL (1.4-6.5); Neutrophils % (auto) 81.1 %; Target Cells 1+
[2021-03-25 01:44] LABS: Albumin Globulin Ratio 0.7 (0.9-2); Albumin Level 2.4 gm/dl (3.4-5.0); Bilirubin,Total 0.3 mg/dl (0.2-1.0); Calcium 4.9 mg/dl (8.5-10.1); Creatinine Clr Calc Pharmacy 115.7 ml/min; Est GFR (African American) 141.9 ml/min; Est GFR (Non-African American) 122.4 ml/min; Globulin 3.5 gm/dl (2.5-4.0); Magnesium 1.6 mg/dl (1.7-2.4); Potassium 3.3 mmol/L (3.5-5.1); Total Protein 5.9 gm/dl (6.0-8.3)
[2021-03-25] MEDS ORDERED: POTASSIUM CHLORIDE CRTAB 20 MEQ TABCR PO STA (01:48)
[2021-03-25] MEDS ORDERED: STAT IV STA ×2 (01:48→03:44)
[2021-03-25] MEDS ORDERED: CALCIUM GLUCONATE 10% 1,000 MG in DEXTROSE 5% 50 ML IV ONE ×2 (01:48→03:44)
[2021-03-25] MEDS ORDERED: POTASSIUM CHLORIDE 20 MEQ/15 ML UDC PO STA (01:52)
[2021-03-25] MEDS ORDERED: ERGOCALCIFEROL 50,000 UNITS 1250 MCG CAP PO STA (04:05)
[2021-03-25] MEDS: MoRPHine SULFATE 2 MG/ML CARP IV PRN ×2 (04:31→09:07)
[2021-03-25] MEDS ORDERED: MoRPHine SULFATE 2 MG/ML CARP IV STA (05:23)
[2021-03-25] MEDS ORDERED: ONDANSETRON INJ 2 MG/ML 2 ML VIAL IV STA (05:24)
[2021-03-25] MEDS ORDERED: ACETAMINOPHEN SUSP 325 MG/10.15 ML UDC PO PRN (06:00)
[2021-03-25] MEDS ORDERED: OPTIRAY 320 100ml IV ONE (06:19)
--- NOTE | 2021-03-25 07:04 | Anesthesiology Consultation ---
Date of Service March 25, 2021 Assessment & Plan (1) Encounter for pre-operative examination: Chart Review Chart Review: Pending: Refer to Additional Notes / Consult section and Patient NOT seen in Pre Admission Testing Patient hypotense and mildly hypoxic overnight. Oxygen requirements increased and placed on HFNC. CT abdomen pending currently as is lactate. At this point, patient does not appear to be appropriately optimized for surgery. Will need to follow resuscitation efforts and results of CT scan prior to determining if he is an appropriate surgical candidate. Patient will need undergo general anesthesia given increased INR if he does in fact proceed with surgery at some point. Consults Requested none History Surgery Operation Date: 03/25/21 08:25 Proposed Procedures p Left Troch Nail - Ministerio Sarabia MD Height/Weight Height: 5 ft 5 in Weight: 47 kg Allergies Allergy/AdvReac Type Severity Reaction Status Date / Time Penicillins Allergy Unknown unknown Verified 03/24/21 15:48 lactose AdvReac Intermediate Gastrointestinal Verified 03/24/21 15:48 Upset gluten AdvReac Unknown GI SYMPTOMS Verified 03/24/21 15:48 Medications Home Medications Medication Instructions Recorded Confirmed Last Taken buspirone 5 mg tablet 5 mg PO BID 01/15/21 03/24/21 03/24/21 07:00 ciclesonide 80 mcg/actuation 1 puff INHALATION BID 01/15/21 03/24/21 Unknown aerosol inhaler (Alvesco) mirtazapine 15 mg tablet 15 mg PO HS 01/15/21 03/24/21 03/23/21 tamsulosin 0.4 mg capsule 0.4 mg PO HS 01/15/21 03/24/21 03/23/21 ondansetron 4 mg disintegrating 4 mg PO Q6H PRN #30 tab 02/08/21 03/24/21 03/24/21 tablet acetaminophen 300 mg-codeine 30 mg 1 tab PO TID PRN 03/24/21 03/24/21 03/24/21 tablet albuterol sulfate 90 mcg/actuation 2 puff INHALATION QID PRN 03/24/21 03/24/21 Unknown aerosol inhaler lactase 3,000 unit tablet 3,000 unit PO AC PRN 03/24/21 03/24/21 Unknown morphine concentrate 100 mg/5 mL 5 mg PO BID PRN 03/24/21 03/24/21 03/21/21 (20 mg/mL) oral solution Active Medications Generic Name Dose Route Start Last Admin Trade Name Freq PRN Reason Stop Dose Admin Buspirone HCl 5 mg 03/24/21 21:00 03/24/21 22:02 Buspirone 5 Mg Tab PO 04/23/21 20:59 5 mg BID TIMOTEO Administration Thiamine HCl 300 mg/ Sodium 53 mls @ 212 mls/hr 03/24/21 21:00 03/24/21 22:26 Chloride IV 04/23/21 20:59 Infused TID TIMOTEO Infusion Mirtazapine 15 mg 03/24/21 21:00 03/24/21 22:02 Mirtazapine Tab 15 Mg Tab PO 04/23/21 20:59 15 mg HS TIMOTEO Administration Morphine Sulfate 2 mg 03/25/21 04:05 03/25/21 04:31 Morphine Sulfate 2 Mg/Ml Carp IV 04/08/21 04:04 2 mg Q3H PRN Administration Severe Pain Ondansetron HCl 4 mg 03/24/21 19:12 03/25/21 01:37 Ondansetron 4 Mg Od Tab PO 04/23/21 19:11 4 mg Q6H PRN Administration nausea and vomiting Tamsulosin HCl 0.4 mg 03/24/21 21:00 03/24/21 22:02 Tamsulosin Hcl 0.4 Mg Cap PO 04/23/21 20:59 0.4 mg HS TIMOTEO Administration Past Medical History Medical History (Updated 03/25/21 @ 07:16 by Solomon Phillips MD) Anemia Anemia B12 deficiency Coagulopathy Elevated INR Failure to thrive Gastric mass Hip fracture Hypocalcemia Hypocalcemia Hypoglycemia Hypothyroid Inguinal hernia Metabolic acidosis Prolonged Q-T interval on ECG SBO (small bowel obstruction) Supratherapeutic INR Syncope and collapse Previous hospital admission Dec-Jan 2021: The patient had a protracted hospitalization 2nd to severe electrolyte disturb ances in the setting of severe protein calorie malnutrition from uncontrolled celiac disease (and probable gastric cancer - see below). He had severe hypocalcemia, hypokalemia, hypomagnesemia, and hypophosphatemia. Hypocalcemia led to tetany at time of presentation. He likely had refeeding syndrome as well, with refractory hypokalemia/hypomagnesemia. GI intolerance and diarrhea persisted despite compliance with gluten-free diet during the hospitalization. Additionally, he had severe coagulopathy at time of admission with INR of 9.5 - likely due to vitamin K deficiency. Coagulopathy resolved with vitamin K administration. As the patient's protracted stay continued he often complained of intermittent abdominal pain. Repeat CT scan of the abdomen/pelvis showed portal vein thrombosis, pulmonary embolus, and gas in the portal vein. GI and general surgery saw patient in consult. Initially it was uncertain how/why he had developed portal vein gas but a subsequent CT scan showed worsening portal vein gas & pneumatosis 2nd to mesenteric ischemia. He also underwent EGD by [employer] showing a large gastric mass. Although biopsy results were inconclusive it was highly suspicious he had gastric cancer (or lymphoma). The patient's electrolyte deficiencies, failure to thrive, and malnutrition persisted despite supportive care. His abdominal pain also continued. He was deemed NOT a surgical candidate for the mesenteric ischemia. Past Family History Family History Other No pertinent family history Past Surgical History Surgical History H/O splenectomy Social History Smoking Status: Never smoker Hx Alcohol Use: Yes Alcohol type: beer alcohol intake frequency: a few times a month Hx Substance Use: No substance use type: does not use Physical Exam Vital Signs Last Vital Signs Temp 36.7 C 03/25/21 02:59 Pulse 87 03/25/21 05:47 Resp 22 03/25/21 05:47 BP 96/60 L 03/25/21 02:59 Pulse Ox 88 L 03/25/21 05:47 Testing Laboratory Results 03/25/21 00:54 03/25/21 00:54 PT 16.7 Seconds (9.0-12.0) H 03/25/21 00:54 INR 1.7 (0.9-1.1) H 03/25/21 00:54 APTT 32.4 Seconds (21.0-31.0) H 03/25/21 00:54 Laboratory Tests 03/25/21 03/25/21 00:54 00:54 Calcium 4.9 L* Ionized Calcium 0.70 L* Phosphorus 2.0 L Magnesium 1.6 L Electrocardiogram Date: 03/24/21 HR 94 Poor data quality, interpretation may be adversely affected Accelerated Junctional rhythm Minimal voltage criteria for LVH, may be normal variant Cannot rule out Anteroseptal infarct , age undetermined Abnormal ECG When compared with ECG of 14-JAN-2021 20:51, Junctional rhythm has replaced Sinus rhythm Minimal criteria for Anteroseptal infarct are now Present ST now depressed in Anterior leads Nonspecific T wave abnormality, improved in Lateral leads Chest X-Ray Date: 03/24/21 XR chest 1V portable CLINICAL HISTORY: Syncope. COMPARISON STUDY: Chest CT March 11, 2020. Chest radiograph February 04, 2021. FINDINGS: There is no pneumothorax. Numerous left-sided rib fractures are present. The majority of these were not present on prior exam of February 04, 2021. Several of these are mildly displaced. Left basilar opacity is present. Cardiac size is normal. IMPRESSION: 1. Numerous left-sided rib fractures. Several ribs may be fractured in multiple locations. These fractures are likely acute to subacute. No pneumothorax. 2. Mild left basilar opacity. Other Testing CT head 03/24/21: IMPRESSION: There is no hemorrhage, mass effect, or evidence of acute territorial ischemia by CT criteria.
[2021-03-25] MEDS ORDERED: ONDANSETRON INJ 2 MG/ML 2 ML VIAL IV PRN ×2 (07:51→08:52)
[2021-03-25] MEDS ORDERED: ONDANSETRON INJ 2 MG/ML 2 ML VIAL ONE (07:51)
[2021-03-25] MEDS ORDERED: SODIUM CHLORIDE 0.9% 500 ML IV ONE (08:00)
--- NOTE | 2021-03-25 08:39 | Critical Care Consultation ---
Date of Consultation March 25, 2021 Assessment & Plan (1) Malnutrition: (2) Failure to thrive: (3) Small bowel obstruction: 60-year-old male with PMH of a. fib, venous thromboembolism, small bowel obstruction, anemia, likely gastric cancer with findings of likely bowel ischemia and gastric cancer. Currently with acute hypoxic respiratory failure. Bowel ischemia/Likely gastric cancer/Cachexia Per discussion with patient in ICU, we will transition to comfort measures as he does not want any further treatment measures at this time and expressed just wanting to be kept comfortable. Hospitalist will contact [facility] to get permission to contact his family. Ho catheter placed due to findings of significant bladder distention on abdominal CT, which could be very uncomfortable for patient He will be started on morphine drip and other comfort maintaining meds CODE: DNR/DNI Dispo: [employer] Supervising Physician Co-Signing Physician Notes Patient seen with the resident physician. Agree with assessment and plan aside for any additions/exceptions noted: I had a discussion with the patient at bedside regarding his overall condition and CODE STATUS. After discussion, patient stated that he did not want aggressive measures such as chest compressions or intubation. It was decided the patient wished to progress with comfort measures. This is also discussed with the patient's nurse and hospitalist at bedside. All were in agreement with the plan. The hospitalist will reach out to the patient's family with permission from his facility. Patient with evidence of aspiration pneumonia. Left pulmonary abscess seen at the base. Right lower lobe infiltrate noted as well. Concern for mesenteric ischemia noted with new pneumatosis intestinalis. No formal diagnosis of malignancy has been made, but there is a high concern for gastric cancer. He has essentially failure to thrive and severe cachexia. He is in hypoxic respiratory failure related to aspiration pneumonia. It should be noted that the patient had an angulated intertrochanteric fracture of the left proximal femur noted on this admission. Anesthesiology was consulted for femoral nerve block. Transition will be to comfort measures and we will hold on invasive procedures at this time. I did personally reviewed the CT abdomen/pelvis images and chest x-ray images. He has numerous left-sided rib fractures. Constitutional: Cacti appearing male in moderate respiratory distress. Eyes: Pupils are equal round and reactive to light. Conjunctivae are normal. Anicteric sclera. Ears nose, mouth and throat: I flow nasal cannula in place. Bitemporal wasting. Neck: Trachea is midline. Visual inspection is normal. Respiratory: Coarse breath sounds bilaterally. Diminished in the left. Cardiovascular: Regular rate and rhythm. No murmurs. No edema. Gastrointestinal: Distended and tender to palpation. Musculoskeletal: Diffusely weak with peripheral cyanosis. Skin: No rashes, warm dry and intact. Neurologic: No obvious focal neurological deficits seen. Psychiatric: Alert and oriented x3 and anxious mood CRITICAL CARE TIME - I have personally spent 44 minutes of critical care time in the direct m anagement of this patient. This is a life/limb threatening event. This includes time spent evaluating patient, direct bedside care, chart review, placing orders, interpretation of diagnostic studies, discussion with consultants, patient, and family members, as well as other required patient management activities. This time is exclusive of all separately billable procedures, and teaching time and separate from and in addition to any other critical care service time. History of Present Illness Attending Physician: Mason Witt MD History of Present Illness Rikki Pascual is a 60-year-old male with PMH of a. fib, venous thromboembolism, small bowel obstruction, anemia, likely gastric cancer who arrived at [facility] a [facility]. This resulted in a left trochanteric fracture. Overnight, patient developed significant abdominal pain. Stat abdominal CT was obtained with stat rad read mentioning low large volume portal venous gas with diffuse dilatation of small bowel additional pneumatosis within multiple loops of jejunum and adjacent mesenteric venous gas. Findings likely relate to bowel obstruction with signs of bowel ischemia. His last abdominal CT on 02/04/2021 showed similar findings. At that time of that admission, patient did have an EGD, which found a large gastric mass. Biopsy was inconclusive but was highly suspicious of gastric malignancy. At that time, patient had elected to be discharged on hospice. However, this time around he decided to be admitted as a full code. After abdominal CT, hospitalist discussed findings with patient and readdressed CODE STATUS, to which he again confirmed that he would like to be a full code. As such, patient was transferred to ICU due to worsening respiratory status. Upon arrival to the ICU, ICU attending Dr. Norton addressed CODE STATUS with patient again. With the explanation that he does have multiple comorbidities and would likely not respond well to CPR or intubation, patient elected to move to comfort measures and defer CPR/intubation if his heart or breathing status were to decline. Hospitalist, nursing staff, ICU attending, penitentiary guards, and myself were all present for this. Allergies Allergy/AdvReac Type Severity Reaction Status Date / Time Penicillins Allergy Unknown unknown Verified 03/24/21 15:48 lactose AdvReac Intermediate Gastrointestinal Verified 03/24/21 15:48 Upset gluten AdvReac Unknown GI SYMPTOMS Verified 03/24/21 15:48 Home Medications Medication Instructions Recorded Confirmed Type buspirone 5 mg tablet 5 mg PO BID 01/15/21 03/24/21 History ciclesonide 80 mcg/actuation 1 puff INHALATION BID 01/15/21 03/24/21 History aerosol inhaler (Alvesco) mirtazapine 15 mg tablet 15 mg PO HS 01/15/21 03/24/21 History tamsulosin 0.4 mg capsule 0.4 mg PO HS 01/15/21 03/24/21 History ondansetron 4 mg disintegrating 4 mg PO Q6H PRN #30 tab 02/08/21 03/24/21 Rx tablet acetaminophen 300 mg-codeine 30 mg 1 tab PO TID PRN 03/24/21 03/24/21 History tablet albuterol sulfate 90 mcg/actuation 2 puff INHALATION QID PRN 03/24/21 03/24/21 History aerosol inhaler lactase 3,000 unit tablet 3,000 unit PO AC PRN 03/24/21 03/24/21 History morphine concentrate 100 mg/5 mL 5 mg PO BID PRN 03/24/21 03/24/21 History (20 mg/mL) oral solution Patient History Medical History (Updated 03/25/21 @ 07:16 by Solomon Phillips MD) Anemia Anemia B12 deficiency Coagulopathy Elevated INR Failure to thrive Gastric mass Hip fracture Hypocalcemia Hypocalcemia Hypoglycemia Hypothyroid Inguinal hernia Metabolic acidosis Prolonged Q-T interval on ECG SBO (small bowel obstruction) Supratherapeutic INR Syncope and collapse Surgical History H/O splenectomy Family History Other No pertinent family history Social History Smoking Status: Never smoker Second Hand Exposure: No; Hx Alcohol Use: Yes Alcohol type: beer Hx Substance Use: No Preferred Language: Persian Communication Ability: Effective Credit And Collections Representative Required: No Beliefs That Will Affect Care: None marital status: Current Living Situation: Other Current Living Situation Comment: [facility] Feels Safe at Home: Yes Assistive Devices: Oxygen - Continuous Review of Systems Review of Systems: SOB, abd pain, nausea. No f/c, no CP, palp. Physical Exam Physical Exam: GENERAL: Severely cachectic, frail appearance. A&Ox3. HEENT: EOMI. high flow nasal cannula in place. CHEST/LUNGS: Tachypneic, increased WOB. HEART: Tachycardic, regular rhythm ABDOMEN: Very tender abdomen diffusely EXTREMITIES: Very thin with significant muscle wasting, no edema, no cyanosis SKIN: Warm and dry. No rashes or lesions. PSYCHIATRIC: Mood congruent with affect NEUROLOGIC: No FND Results & Data Results & Data ([facility]) Vital Signs (Past 12 Hours) Vital Signs Temp Pulse Pulse Pulse Resp BP Pulse Ox 03/25/21 07:40 128 H 24 03/25/21 07:38 36.8 C 135 H 30 H 90/46 L 87 L 03/25/21 07:34 105 H 03/25/21 07:15 36.6 C 128 H 26 H 87/62 L 79 L 03/25/21 05:47 87 22 88 L 03/25/21 02:59 36.7 C 107 H 18 96/60 L 03/25/21 00:12 03/25/21 00:00 36.5 C 105 H 18 93/64 L 95 Pulse Ox 03/25/21 07:40 03/25/21 07:38 03/25/21 07:34 03/25/21 07:15 03/25/21 05:47 03/25/21 02:59 03/25/21 00:12 95 03/25/21 00:00 Critical Care Results & Data Vital Signs (Past 12 Hours) Vital Signs Temp Pulse Pulse Pulse Resp BP Pulse Ox 03/25/21 07:40 128 H 24 03/25/21 07:38 36.8 C 135 H 30 H 90/46 L 87 L 03/25/21 07:34 105 H 03/25/21 07:15 36.6 C 128 H 26 H 87/62 L 79 L 03/25/21 05:47 87 22 88 L 03/25/21 02:59 36.7 C 107 H 18 96/60 L 03/25/21 00:12 03/25/21 00:00 36.5 C 105 H 18 93/64 L 95 Pulse Ox 03/25/21 07:40 03/25/21 07:38 03/25/21 07:34 03/25/21 07:15 03/25/21 05:47 03/25/21 02:59 03/25/21 00:12 95 03/25/21 00:00 Lab & Micro Results (Past 24 Hours) RBC 2.95 M/uL (4.7-6.1) L 03/25/21 WBC 7.97 K/uL (4.8-10.8) 03/25/21 Hgb 10.3 g/dL (14.0-18.0) L 03/25/21 Hct 30.4 % (42-52) L 03/25/21 MCV 103.1 fL (80-100) H 03/25/21 MCH 34.9 pg (25-34) H 03/25/21 MCHC 33.9 g/dL (32-36) 03/25/21 RDW Standard Deviation 59.8 fL (36.4-46.3) H 03/25/21 RDW Coefficient of Variation 16.0 % (11.5-14.5) H 03/25/21 Plt Count 497 K/uL (130-400) H 03/25/21 MPV 9.5 fL (7.4-10.4) 03/25/21 Neutrophils (%) (Auto) 81.1 % 03/25/21 Lymphocytes (%) (Auto) 10.5 % 03/25/21 Monocytes # (Auto) 0.62 K/uL (0.11-0.59) H 03/25/21 Eosinophils # (Auto) 0.00 K/uL (0-0.5) 03/25/21 Immature Granulocyte % (Auto) 0.5 % 03/25/21 Neutrophils # (Auto) 6.46 K/uL (1.4-6.5) 03/25/21 Lymphocytes # (Auto) 0.84 K/uL (1.2-3.4) L 03/25/21 Monocytes # (Auto) 0.62 K/uL (0.11-0.59) H 03/25/21 Eosinophils # (Auto) 0.00 K/uL (0-0.5) 03/25/21 Basophils # (Auto) 0.01 K/uL (0-0.2) 03/25/21 Immature Granulocyte # (Auto) 0.04 K/uL (0.00-0.02) H 03/25/21 Target Cells 1+ 03/25/21 [place] Bodies 1+ 03/25/21 Na 137 mmol/L (136-145) 03/25/21 K 3.9 mmol/L (3.5-5.1) 03/25/21 Cl 106 mmol/L (98-107) 03/25/21 CO2 24 mmol/L (21-32) 03/25/21 Anion Gap 7 (3-11) 03/25/21 BUN 12 mg/dl (6-23) 03/25/21 Creatinine 0.41 mg/dl (0.6-1.4) L 03/25/21 Estimated GFR ( Amer) 146.1 ml/min 03/25/21 Estimated GFR (Non-Af Amer) 126.0 ml/min 03/25/21 BUN/Creatinine Ratio 29.3 (10-20) H 03/25/21 Glu 61 mg/dl (70-99(Fasting)) L 03/25/21 Ca 5.1 mg/dl (8.5-10.1) L* 03/25/21 Phosphorus Level 2.3 mg/dl (2.5-4.9) L 03/25/21 Total Bilirubin 0.3 mg/dl (0.2-1.0) 03/25/21 AST 31 U/L (13-39) 03/25/21 ALT 31 U/L (7-52) 03/25/21 Alkaline Phosphatase 228 U/L (34-104) H 03/25/21 TP 5.9 gm/dl (6.0-8.3) L 03/25/21 Albumin 2.4 gm/dl (3.4-5.0) L 03/25/21 Globulin 3.5 gm/dl (2.5-4.0) 03/25/21 Albumin/Globulin Ratio 0.7 (0.9-2) L 03/25/21 Mg 1.7 mg/dl (1.7-2.4) 03/25/21 06:51 03/25/21 Calcium Level 5.1 mg/dl (8.5-10.1) L* 03/25/21 06:51 03/25/21 Ionized Calcium 0.70 mmol/L (1.12-1.32) L* 03/25/21 00:54 03/25/21 Prothromb Time International Ratio 1.7 (0.9-1.1) H 03/25/21 00:54 03/25/21 Blood Gas Barometric Pressure 740.5 mm/Hg 03/25/21 07:59 03/25/21 Arterial Blood pH 7.32 (7.35-7.45) L 03/25/21 07:59 03/25/21 Arterial Blood Partial Pressure CO2 42 mmHg (35-46) 03/25/21 07:59 03/25/21 Arterial Blood Partial Pressure O2 26 mmHg (80-95) L 03/25/21 07:59 Arterial Blood HCO3 21 mmol/L (19-24) 03/25/21 07:59 03/25/21 Arterial Blood Base Excess -5.0 mEq/L (-9-1.8) 03/25/21 07:59 03/25/21 Arterial Blood Oxygen Saturation < 60.0 % (90-95) L 03/25/21 07:59 03/25/21 Blood Gas Oxygen Given 100% FIO2 03/25/21 07:59 03/25/21 Sharan Test Pos (Pos) 03/25/21 07:59 03/25/21 Blood Gas Barometric Pressure 740.5 mm/Hg 03/25/21 07:59 03/25/21 Diagnostic Findings (Past 24 Hours) Femur X-Ray 03/24/21 14:40 SINGLE VIEW PELVIS; 3 VIEWS LEFT FEMUR CLINICAL HISTORY: Fall with left hip injury. FINDINGS: An AP view of the pelvis with AP, frog-leg, and crosstable lateral views of the left femur are obtained. Correlation is made with pelvic CT dated 02/04/2021. The skeletal structures are osteopenic. No fracture seen involving the bony pelvis or the right hip. There is an angulated intertrochanteric fracture of the left proximal femur. Overlying soft tissue edema is noted. The distal left femur is intact. Moderate degenerative joint space narrowing is seen in the hips. The left knee joint is grossly maintained. Mesh material projects over the pelvis. There is gaseous distention of the small bowel loops. IMPRESSION: 1. Angulated intertrochanteric fracture of the left proximal femur. 2. The bony pelvis and right hip appear intact. 3. There is nonspecific gaseous distention of the small bowel loops. Correlate clinically for evidence of ileus or developing obstruction. Electronically signed by: Kushal Cevallos M.D. 03/24/2021 3:43 PM Pelvis X-Ray 03/24/21 14:40 SINGLE VIEW PELVIS; 3 VIEWS LEFT FEMUR CLINICAL HISTORY: Fall with left hip injury. FINDINGS: An AP view of the pelvis with AP, frog-leg, and crosstable lateral views of the left femur are obtained. Correlation is made with pelvic CT dated 02/04/2021. The skeletal structures are osteopenic. No fracture seen involving the bony pelvis or the right hip. There is an angulated intertrochanteric fracture of the left proximal femur. Overlying soft tissue edema is noted. The distal left femur is intact. Moderate degenerative joint space narrowing is seen in the hips. The left knee joint is grossly maintained. Mesh material projects over the pelvis. There is gaseous distention of the small bowel loops. IMPRESSION: 1. Angulated intertrochanteric fracture of the left proximal femur. 2. The bony pelvis and right hip appear intact. 3. There is nonspecific gaseous distention of the small bowel loops. Correlate clinically for evidence of ileus or developing obstruction. Electronically signed by: Kushal Cevallos M.D. 03/24/2021 3:[address] 03/24/21 15:32 CT OF THE CERVICAL SPINE WITHOUT CONTRAST CLINICAL HISTORY: Fall. COMPARISON STUDY: No previous studies for comparison. TECHNIQUE: Helical axial images of the cervical spine were obtained without IV contrast. Sagittal and coronal reconstructions were viewed. Automated exposure control was utilized for the study. A dose lowering technique was utilized adhering to the principles of ALARA. FINDINGS: Alignment of the cervical spine is anatomic. Vertebral body heights are maintained. No acute cervical spine fracture or subluxation is present. There is no prevertebral edema. Facet joints are intact. Mild to moderate multilevel degenerative changes within the cervical spine are present. Old T2 and T3 compression fractures are unchanged since chest CT of March 11, 2020. IMPRESSION: No acute cervical spine fracture or subluxation. ACT 112: Negative or not required by law. Electronically signed by: Virgil Gross M.D. 03/24/2021 4:[address] 03/24/21 15:32 CT SCAN OF THE BRAIN WITHOUT IV CONTRAST CLINICAL HISTORY: Fall. COMPARISON STUDY: No priors. TECHNIQUE: Unenhanced axial CT scan of the brain is performed from the vertex to the skull base. A dose lowering technique was utilized adhering to the principles of ALARA. CT DOSE: 1022.54 mGy.cm FINDINGS: Brain parenchyma: There are age-related involutional changes noting minimal subcortical and periventricular microangiopathic change. There is no hemorrhage, mass effect, or evidence of acute territorial ischemia by CT criteria. Garvin- white matter differentiation is preserved. No extra-axial fluid collection is seen. Ventricles, sulci, cisterns: Prominent secondary to involutional change. Intracranial vasculature: Intracranial vessels at the skull base are normal as visualized. Calvarium: The skeletal structures are osteopenic. No depressed calvarial fracture is identified. Sinuses and mastoids: There is mild mucosal thickening in the maxillary antra. The remaining paranasal sinuses are clear. The mastoid air cells are well pneumatized. Orbits: The bony orbits are grossly intact. IMPRESSION: There is no hemorrhage, mass effect, or evidence of acute territorial ischemia by CT criteria. ACT 112: Negative or not required by law. Electronically signed by: Kushal Cevallos M.D. 03/24/2021 4:06 PM Chest X-Ray 03/24/21 18:02 XR chest 1V portable CLINICAL HISTORY: Syncope. COMPARISON STUDY: Chest CT March 11, 2020. Chest radiograph February 04, 2021. FINDINGS: There is no pneumothorax. Numerous left-sided rib fractures are present. The majority of these were not present on prior exam of February 04, 2021. Several of these are mildly displaced. Left basilar opacity is present. Cardiac size is normal. IMPRESSION: 1. Numerous left-sided rib fractures. Several ribs may be fractured in multiple locations. These fractures are likely acute to subacute. No pneumothorax. 2. Mild left basilar opacity. ACT 112: Negative or not required by law. Electronically signed by: Virgil Gross M.D. 03/24/2021 6:38 PM I & O Totals 24 Hours 03/24/21 03/25/21 03/26/21 06:59 06:59 06:59 Intake Total 1432.667 / 5705.535 2991 / 1000 Balance 1432.667 / 5785.175 6969 / 1000 Cumulative 03/24/21 14:32 thru 03/25/21 07:35 Intake Total 2432.667 Balance 2432.667 RT Ventilator Mngmt (Last Documented) Ventilator Ordered Settings Respiratory Rate 24 03/25/21 07:40 Fraction of Inspired Oxygen 100 03/25/21 07 :40 Ventilator - PT Measurements Respiratory Rate 24 Resident Activity Tracking Resident Involvement: Resident Care Provided Care Provided: Adult Hospital Medicine
[2021-03-25 08:43] LABS: HCO3 ABG 21 mmol/L (19-24); PCO2 ABG 42 mmHg (35-46); PO2 ABG 26 mmHg (80-95); pH ABG 7.32 (7.35-7.45)
[2021-03-25 08:45] LABS: Allen Test Pos (Pos); Oxygen Saturation ABG < 60.0 % (90-95)
[2021-03-25 08:47] LABS: BUN Creatinine Ratio 29.3 (10-20); Calcium 5.1 mg/dl (8.5-10.1); Creatinine Clr Calc Pharmacy 124.2 ml/min; Est GFR (African American) 146.1 ml/min; Magnesium 1.7 mg/dl (1.7-2.4); Phosphorus 2.3 mg/dl (2.5-4.9); Potassium 3.9 mmol/L (3.5-5.1)
[2021-03-25] MEDS ORDERED: ICU PROTOCOL FOR HYPERGLYCEMIA PRN (08:50)
[2021-03-25] MEDS ORDERED: GLYCOPYRROLATE 0.2 MG/ML VIAL IV PRN (08:52)
[2021-03-25] MEDS ORDERED: STAT IV Infusion **Titration per Protocol STA (08:52)
[2021-03-25] MEDS ORDERED: LORazepam 0.5 MG/1 ML VIAL IV PRN ×2 (08:52)
[2021-03-25] MEDS ORDERED: ONDANSETRON 4 MG OD TAB SL PRN (08:52)
[2021-03-25] MEDS ORDERED: ATROPINE SULFATE 1% OP SOLN 5 ML BTL SL PRN (08:52)
[2021-03-25] MEDS ORDERED: LORazepam 0.5 MG TAB PO PRN (08:52)
[2021-03-25] MEDS ORDERED: MoRPHine SULF/NSS 250 MG/250 ML BTL IV SCH ×2 (09:00)
[2021-03-25] MEDS ORDERED: FLUTICASONE FUROATE 100MCG 14 PUFFS/INHALER INH SCH (09:00)
--- NOTE | 2021-03-25 09:30 | CT Scan Report ---
ABDOMEN AND PELVIS CT WITH IV CONTRAST CT DOSE: 277.84 mGy.cm HISTORY: Acute severe generalized abdominal pain 10/10 abd pain TECHNIQUE: Multiaxial CT images of the abdomen and pelvis were performed following the IV administrat ion of 95 cc of Optiray, A dose lowering technique was utilized adhering to the principles of ALARA. COMPARISON STUDY: CT abdomen and pelvis 02/04/2021, left femur radiographs 03/24/2021. FINDINGS: Small layering pleural effusions. Dense consolidation of the left lower lobe with patchy groundglass and consolidative opacities within the right lung base. There is a peripherally enhancing hypodense 2 .1 x 2.7 cm collection within the left lower lobe on image 28 of series 3. Segmental and subsegmental pulmonary emboli of the right lower lobe. 4.5 mm calculus of the interpolar right kidney. There is no hydronephrosis. Moderate to marked urinar y bladder distention. Prostamegaly. Aorta and IVC appear unremarkable. There is no adenopathy. There is extensive portal venous gas which has progressed from prior. Trace pneumoperitoneum within the abd ominal right upper quadrant seen on image 147 series 3 for example. Absent spleen. Unremarkable pancr eas and adrenal glands. Distended gallbladder. Fluid-filled distal esophagus. Moderate sized hiatal hernia. The previously described emphysematous g astritis is not definitively seen. Small volume of abdominal pelvic ascites. Moderately distended loo ps of large and small bowel with small bowel loops measuring up to approximately 4.9 cm transversely. Narrowing of the sigmoid colon is unchanged dating back to 01/26/2021 study. There is diffuse anasar ca. There is decreased attenuation of the pelvic and proximal thigh musculature which has progressed from prior. Thrombus within the left common femoral vein is new from prior. Acute, comminuted, impact ed and angulated intratrochanteric fracture of the left femur. Demineralized appearance of the bones. IMPRESSION: 1. Small layering pleural effusions with bibasilar consolidation compatible with pneumonia. Additiona lly, there is a 2.1 x 2.7 cm peripherally enhancing air and fluid-filled structure of the left lower lobe suggestive of a pulmonary abscess. This finding was called/faxed to the floor at time of dictati on. 2. Extensive portal venous gas with pneumatosis intestinalis suggestive of small bowel ischemia. 3. Trace pneumoperitoneum of the abdominal right upper quadrant is suggestive of a perforated viscus. This finding was called/faxed to the floor at time of dictation. 4. Acute appearing thrombus of the left common femoral vein with right lower lobe pulmonary emboli. T his finding was also called/faxed to the floor at time of dictation. 5. Chronically distended air and fluid-filled loops of large and small bowel redemonstrated suggestiv e of ileus versus partial obstruction. 6. Acute, comminuted, angulated and displaced intertrochanteric fracture of the left femur. 7. Small volume of abdominopelvic ascites with anasarca. 8. Progressively worsened decreased attenuation of the pelvic and proximal thigh musculature. Correla te clinically to exclude rhabdomyolysis. 9. Additional findings as above. ACT 112: Negative or not required by law. The above report was generated using voice recognition software. It may contain grammatical, syntax o r spelling errors. Electronically signed by: Vikram Garcia M.D. 03/25/2021 9:29 AM
--- NOTE | 2021-03-25 10:17 | XCELERA ---
[id number]
--- NOTE | 2021-03-25 11:18 | Billing Data ---
Date of Service March 25, 2021 Coding Level of Care Code Critical Care 1st 30-74 mins Time Spent (min) 44
--- NOTE | 2021-03-25 17:13 | Discharge Summary ---
Date of Service March 25, 2021 Admission HPI Per Admitting Provider This is a chronically ill, severely malnourished 60-year-old male with past medical history of A. fib, VTE, GERD, severe hypocalcemia, hypomagnesemia, and recently identified gastric mass suspicious for gastric cancer or lymphoma who was brought to the ER from [facility] after a witnessed ground-level fall. Patient states he was ambulating and became dizzy and passed out. He suffered a occipital hematoma, left posterior arm abrasion, and left hip/groin pain. His only pain is in his left hip/groin, it is a 12/10 without radiation anywhere else. Denies chest pain, palpitations, SOB, visual changes, confusion, abdominal pain, nausea, vomiting. Imaging in ED revealed an angulated intertrochanteric fracture of the left proximal femur. Head and CT spine unremarkable. BMP revealed potassium of 3.3, magnesium 1.1, phosphorus 1.2, calcium 4.8. During patient's last admission in January, given CT findings of a gastric mass consistent with a gastric cancer lymphoma, patient expressed he would like to focus on comfort and pain control is made DNR/DNI. However upon conversation with patient in ED, he expresses to me that he wishes to be a full code and pursue aggressive measures for resuscitation in the event of a cardiac arrest. Principal Diagnosis 03/25 at 1346 hrs Cause of is ischemic bowel Discharge Exam Patient was pronounced after having no spontaneous respirations or heart tones or electrical myocardial activity for 60 seconds Discharge Data Allergies Allergy/AdvReac Type Severity Reaction Status Date / Time Penicillins Allergy Unknown unknown Verified 03/24/21 15:48 lactose AdvReac Intermediate Gastrointestinal Verified 03/24/21 15:48 Upset gluten AdvReac Unknown GI SYMPTOMS Verified 03/24/21 15:48 Consultations 03/24/21 17:09 ED Decision to Admit Stat 03/24/21 18:12 Consult Anesthesiology Routine 03/25/21 08:50 Consult Ent Physician Routine Procedures Performed Operation Date: 03/25/21 08:25 <No data on this case meets the specified criteria> Ordered Studies 03/24/21 15:32 CT cervical spine wo con Stat CT head/brain wo con Stat 03/25/21 05:24 CT abd pelvis IV con only Urgent Hospital Course (1) : Patient on 03/25/2021 at 1346 hrs. after he succumbed to progression of ischemic bowel. Patient developed respiratory distress did not want to be intubated after discussion with the critical care team was placed on comfort measures and eventually due to worsening of intra-abdominal process that was identified to have ischemic bowel changes on CT scan on presentation The remainder of these problems are other issues that were occurring while the patient was alive during this hospital stay (2) Hip fracture: -X-ray showed angulated intertrochanteric fracture of the left proximal femur. (3) Syncope and collapse: - Likely due to malnutrition/debiliation, however must consider pulmonary embolism and cardiac ischemia as potential causes. Patient has a history of VTE and was recommended to be on chronic anticoagulation however is supratherapeutic on INR due to vitamin K deficiency. Heart rate is 98. Denies shortness of breath, is not hypoxic, SaO2 99% on room air. Initial troponin less than 0.03. - (4) Hypokalemia: - -Replete (5) Hypomagnesemia: Replete (6) Hypophosphatemia: -Received (7) Hypocalcemia: -Multifactorial - severe hypoalbuminemia, hypokalemia, hypomagnesemia, vitamin D deficiency, etc. (8) Supratherapeutic INR: -INR 1.6, PT 16.1. Also present on last mission in January 2021. Patient is not on any anticoagulation. Likely due to vitamin K deficiency. (9) Gastric mass: Currently undiagnosed (10) Mood disorder: -Continue Buspar 5 mg bid and Remeron (11) Failure to thrive: -Likely combination of celiac disease, suspected malignancy, and a possible lymphocytic colitis noted during last admission. -Repleting electrolytes as above. - (12) Malnutrition: -Severe protein malnutrition present on admission (13) GERD (gastroesophageal reflux disease): (14) Atrial fibrillation: -30 minutes of atrial fibrillation during hospitalization several years ago. -None noted on hospitalization in January. (15) History of venous thromboembolism: -PVT seen on CT during last hospitalization in January. -Likely hypercoagulable due to suspected malignancy. -Will need lifelong anticoagulation - he has had VTE in the past -however he is supratherapeutic due to vitamin K deficiency from malnutrition. (16) Alkaline phosphatase elevation: - Seen during hospitalization in January. - 2/2 vitamin D deficiency Total Time Total Time Spent Total Time Spent (In Minutes): It required greater than 30 minutes to prepare this patient for discharge Discharge Plan Discharge Items Patient Disposition: Other Date/Time: 03/25/21 13:46 Coding Level of Care Code D/C DAY MANAGEMENT >30 MINS Diagnoses Hip fracture S72.009A Syncope and collapse R55 Hypokalemia E87.6 Hypomagnesemia E83.42 Hypophosphatemia E83.39 Hypocalcemia E83.51 Supratherapeutic INR R79.1 Gastric mass K31.89 Mood disorder F39 Failure to thrive Malnutrition E46 GERD (gastroesophageal reflux disease) K21.9 Atrial fibrillation I48.91 History of venous thromboembolism Z86.718 Alkaline phosphatase elevation R74.8 R99
== END 2021-03-25 16:22 | disposition expired | DRG 393 ==
LOC: ED 14:32 → EDINP 17:04 → SUATTDRO 17:04 → 2N 19:00 → 1E 03-25 07:55